=== PATIENT | male | born 1955 | race African-American/Black ===

== ENCOUNTER 2017-01-31 12:12 | Emergency (ER) | payer OTHER ==
[~2017-01-31] VITALS: Ht 180.3 cm; Wt 90.6 kg
[~2017-01-31 12:12] MED LIST: BISA1TAB15 PO; CYAN100T6 PO; ETAN50IN2 SC; FAMO20TA11 PO; FERR325T5 PO; FOLI1TAB7 PO; HYDR200T5 PO; INSDGI SC; INSHRIE SC; LABE1TAB28 PO; LEVE750T PO
[2017-01-31 12:18] VITALS: TEMP 36.8; Ht 180.3 cm; Wt 90.6 kg
[2017-01-31] MEDS ORDERED: INSHNI SQ ×2 (12:23)
[2017-01-31] MEDS ORDERED: NORT25CA PO (12:23)
[2017-01-31] MEDS ORDERED: LISI40TA PO (12:23)
[2017-01-31] MEDS ORDERED: AMLO-110 PO (12:23)
[2017-01-31] MEDS ORDERED: GLC500 PO (12:23)
[2017-01-31] MEDS ORDERED: ATOR10TA82 PO (12:23)
[2017-01-31] MEDS ORDERED: SODIUM CHLORIDE 0.9% 1000ML 1,000 ML IV ONE (13:30)
[2017-01-31 14:23] LABS: HEMATOCRIT 39.7 % (42-52); MEAN CELL VOLUME 86.3 fL (80-100); MEAN CORPUSCULAR HEMOGLOBIN 29.3 pg (25-34); MEAN PLATELET VOLUME 9.8 fL (7.4-10.4); PLATELET COUNT 215 K/uL (130-400); WHITE BLOOD COUNT 4.74 K/uL (4.8-10.8)
[2017-01-31] MEDS ORDERED: DEXTROSE 50% 50 ML SYR ONE (15:02)
[2017-01-31 15:05] LABS: BUN/CREATININE RATIO 14.8 (10-20); CALCIUM 9.1 mg/dl (8.5-10.1); CREATININE 1.3 mg/dl (0.60-1.40); POTASSIUM 4.2 mmol/L (3.5-5.1)
[2017-01-31 15:11] LABS: BASO % 0.6 %; BASO ABS # 0.03 K/uL (0-0.2); COMPLETE YES; EOS % 1.9 %; LYMPH % 52.5 %; LYMPH ABS # 2.49 K/uL (1.2-3.4); MONO % 12.2 %; NEUT % 32.8 %
[2017-01-31 18:21] VITALS: BP 153/97; PULSE 68; O2SAT 99
[2017-01-31 19:13] LABS: URINE APPEARANCE CLEAR (CLEAR); URINE BILIRUBIN NEG (NEG); URINE COLOR YELLOW; URINE NITRITE NEG (NEG); URINE SPECIFIC GRAVITY 1.012 (1.000-1.030); UROBILINOGEN NEG (NEG)
[2017-01-31 19:14] LABS: MANUAL MICROSCOPIC REQUIRED? NO; REVIEW REQ? NO
--- NOTE | 2017-01-31 22:03 | EMERGENCY ROOM VISIT NOTE ---
ED Visit Note First contact with patient: 13:01 Chief Complaint: Dizziness. History of Present Illness: Mr. Ashley is a 61-year-old white male who is brought into the ED accompanied by 2 [facility] guards complaining of lightheadedness. Historically patient has a history of hypertension, diabetes, seizure disorder, coronary artery disease, ulcerative colitis and dyslipidemia. Additionally patient reports a few months ago he had black stools and reported he had a test in [facility] that showed it was not melanotic. Reported by [facility] staff today and patient that he was since line standing for his medication when he reports he developed lightheadedness; it is reported he initially said it was dizziness but when I interviewed him he denied that there was any spinning component to these sensations. At that time it was reported [facility] staff attempted to take his blood pressure multiple times and when they finally were successful his blood pressure was 60 systolic and they did check his blood sugar which was above 200. On my evaluation of the patient he is currently reporting that he is symptom- free. He does not remember exactly when the lightheadedness resolved. He reports he was not giving any medication for lightheadedness to the best of his knowledge. He did not identify any aggravating or alleviating factors related to his lightheadedness. Patient denies recent head injury, headache, visual changes, hearing changes, difficulty speaking, difficulty swallowing, difficulty ambulating/coordinating body movements, neck pain, back pain, chest pain, shortness of breath, palpitations, abdominal pain, nausea, vomiting, diarrhea, constipation, rectal bleeding, black/tarry stools, urinary symptoms, hematuria, easy bruising, easy bleeding, extremity weakness/numbness/tingling. Review of Systems: As noted above in history of present illness. All body systems were reviewed and found to be negative as noted above. Past Medical History: As noted above and constipation, dyspepsia, depression, hepatitis C, rheumatoid arthritis and chronic pain. Current Medications: Medications Dose Route/Sig Max Daily Dose Days Date Category Dose Instructions Lipitor (Atorvastatin Calcium) 10 Mg Tab 10 Mg PO HS 01/31/17 Reported Norvasc (Amlodipine Besylate) 5 Mg Tab 5 Mg PO DAILY 01/31/17 Reported Metformin HCl 500 Mg Tab 500 Mg PO BID 01/31/17 Reported Prinivil (Lisinopril) 40 Mg Tab 40 Mg PO DAILY 01/31/17 Reported Humulin N (Insulin Human NPH) 100 Units/Ml Susp 15 Units SQ HS 01/31/17 Reported Humulin N (Insulin Human NPH) 100 Units/Ml Susp 45 Unit SQ DAILY 01/31/17 Reported Pamelor (Nortriptyline HCl) 25 Mg Cap 25 Mg PO BID 01/31/17 Reported Humulin R (Insulin Human Regular) 100 Units/Ml Susp 1 Dose SC ACHS 06/19/16 Reported COVERAGE DIRECTED BY FOLLOWING SLIDING SCALE: 150 - 200 2 UNITS 201 - 250 4 UNITS 251 - 300 6 UNITS 301 - 350 8 UNITS 351 - 400 10 UNITS 401 - 450 12 UNITS > 450 CALL Enbrel (Etanercept) 50 Mg/Ml Inj 50 Mg SC WK 06/19/16 Reported ADMINISTER EVERY MONDAY Vitamin B12 100 Mcg (Cyanocobalamin) 100 Mcg Tab 100 Mcg PO DAILY 06/04/16 Reported Normodyne (Labetalol HCl) 200 Mg Tab 200 Mg PO BID 06/04/16 Reported Folvite (Folic Acid) 1 Mg Tab 1 Mg PO DAILY 06/04/16 Reported Ferrous Sulfate 325 Mg Tab 325 Mg PO BID 06/04/16 Reported Pepcid (Famotidine) 20 Mg Tab 20 Mg PO BID 06/04/16 Reported Keppra (Levetiracetam) 750 Mg Tab 1,500 Mg PO BID 05/17/16 Reported Plaquenil (Hydroxychloroquine Sulfate) 200 Mg Tab 200 Mg PO DAILY 03/04/16 Reported Allergies to Medications: Patient denies and none reported. Social History: Patient is currently in [facility]. Physical Examination: Vital Signs: Date Time Temp Pulse Resp B/P Pulse Ox O2 Delivery O2 Flow Rate FiO2 01/31/17 18:21 68 15 153/97 99 01/31/17 18:00 65 14 99 01/31/17 17:41 66 16 165/97 80 93/73 01/31/17 17:39 92 168/96 92 01/31/17 17:38 93/73 93 01/31/17 17:36 165/97 94 01/31/17 17:30 66 13 98 01/31/17 17:10 67 01/31/17 17:00 67 14 99 01/31/17 16:55 168/102 01/31/17 16:30 77 15 98 01/31/17 16:00 57 12 100 5/9/17 15:30 58 16 97 01/31/17 15:21 59 16 126/76 99 Room Air 64 94/66 65 92/64 01/31/17 15:15 59 12 113/74 99 Room Air 01/31/17 14:45 66 13 153/94 100 Room Air 01/31/17 13:41 61 01/31/17 12:18 36.8 65 18 126/79 95 Room Air GENERAL: 61-year-old male in no acute distress, nontoxic-appearing, afebrile and hemodynamically stable. NEUROLOGICAL: Awake, alert and oriented to person, place and time. Answering questions appropriately and following commands. Good hand eye coordination. No focal motor or sensory deficits. Cranial nerves II through XII grossly intact. Good short-term and long-term recall. Pronator drift test negative. SKIN: Warm, dry and pink. No soft tissue eruptions or trauma noted. HEENT: Atraumatic and normocephalic. PERRLA. EOMI without nystagmus. Sclera white and conjunctiva pink. No drainage from naris. Oral cavity moist and pink. Pharynx is nonerythematous or edematous. Airway is patent. Speech clear , slightly delayed but normal. No lymphadenopathy. Trachea midline. No jugular venous distention. No carotid bruits. BACK: No tenderness over the bony spine. No CVA tenderness. THORAX: Lungs sounds are clear to auscultation and equal bilaterally with symmetrical chest wall. No wheezing, rales or rhonchi. No crepitus, tenderness , subcutaneous air or deformities noted. HEART: Regular rate and rhythm. No gallops, rubs or murmurs are appreciated. ABDOMEN: Flat, soft and nontender. Positive bowel sounds in all quadrants. No guarding, rigidity or organomegaly. EXTREMITIES: Moves all extremities well on command and with purpose. All distal neurovascular statuses are intact and equal bilaterally. No calf tenderness or cords. ED Course: Patient is assessed as noted above. Laboratory Testing: Test 01/31/17 12:18 01/31/17 14:10 01/31/17 14:57 01/31/17 15:12 Range/Units Bedside Glucose 265 42 111 70-99 mg/dl White Blood Count 4.74 4.8-10.8 K/uL Red Blood Count 4.60 4.7-6.1 M/uL Hemoglobin 13.5 14.0-18.0 g/dL Hematocrit 39.7 42-52 % Mean Corpuscular Volume 86.3 80-100 fL Mean Corpuscular Hemoglobin 29.3 25-34 pg Mean Corpuscular Hemoglobin Concent 34.0 32-36 g/dl Platelet Count 215 130-400 K/uL Mean Platelet Volume 9.8 7.4-10.4 fL Neutrophils (%) (Auto) 32.8 % Lymphocytes (%) (Auto) 52.5 % Monocytes (%) (Auto) 12.2 % Eosinophils (%) (Auto) 1.9 % Basophils (%) (Auto) 0.6 % Neutrophils # (Auto) 1.55 1.4-6.5 K/uL Lymphocytes # (Auto) 2.49 1.2-3.4 K/uL Monocytes # (Auto) 0.58 0.11-0.59 K/uL Eosinophils # (Auto) 0.09 0-0.5 K/uL Basophils # (Auto) 0.03 0-0.2 K/uL RDW Standard Deviation 40.1 36.4-46.3 fL RDW Coefficient of Variation 12.7 11.5-14.5 % Immature Granulocyte % (Auto) 0.0 % Immature Granulocyte # (Auto) 0.00 0.00-0.02 K/uL Sodium Level 140 136-145 mmol/L Potassium Level 4.2 3.5-5.1 mmol/L Chloride Level 106 98-107 mmol/L Carbon Dioxide Level 32 21-32 mmol/L Anion Gap 2.0 3-11 mmol/L Blood Urea Nitrogen 19 7-18 mg/dl Creatinine 1.30 0.60-1.40 mg/dl Est Creatinine Clear Calc Drug Dose 67.0 ml/min Estimated GFR () 67.3 Estimated GFR (Non- 58.1 BUN/Creatinine Ratio 14.8 10-20 Random Glucose 34 70-99 mg/dl Calcium Level 9.1 8.5-10.1 mg/dl Total Bilirubin 0.5 0.2-1 mg/dl Direct Bilirubin 0.2 0-0.2 mg/dl Aspartate Amino Transf (AST/SGOT) 20 15-37 U/L Alanine Aminotransferase (ALT/SGPT) 23 12-78 U/L Alkaline Phosphatase 65 45-117 U/L Total Protein 8.3 6.4-8.2 gm/dl Albumin 3.7 3.4-5.0 gm/dl Test 01/31/17 15:32 01/31/17 16:08 01/31/17 17:06 01/31/17 17:35 Range/Units Bedside Glucose 122 97 84 122 70-99 mg/dl Test 01/31/17 18:30 Range/Units Urine Color YELLOW Urine Appearance CLEAR CLEAR Urine pH 5.0 4.5-7.5 Urine Specific [place] 1.012 1.000-1.030 Urine Protein NEG NEG Urine Glucose (UA) TRACE NEG Urine Ketones NEG NEG Urine Occult Blood NEG NEG Urine Nitrite NEG NEG Urine Bilirubin NEG NEG Urine Urobilinogen NEG NEG Urine Leukocyte Esterase NEG NEG EKG: Was read by myself and reviewed with Dr. Ray; shows normal sinus rhythm with a ventricular rate of 63 bpm. Normal axis, intervals and complexes. No acute ST changes indicating ischemia, injury or infarction. This was compared to previous from May 2016 in no acute changes were noted. Patient was hydrated with normal saline. During his stay in the emergency department his serum glucose level dropped and he was given one amp of D50. He was monitored for his sugar multiple times and did continue to drop. He was fed and he had a rebound of his glucose level but then it dropped again. Once again he was given orange juice with added sugar and it seemed to stabilize. Patient was reassessed multiple times during his stay in the emergency department. I did review the records that were sent from the [facility] and it appears over the last week he has been having difficulty controlling his serum glucose level. He 's had multiple episodes where his sugars have been in the 30 and 40s but there is also multiple records when he is 400-500. I did contact the on-call medical staff for the [facility] and asked for their recommendations on admission versus return to [facility] with close monitoring. After lengthy conversation it was decided that he should return to the [facility] for careful monitoring and return as needed. Patient's case was also reviewed with my attending Dr. Ray; we agreed on diagnostic approach, treatment, disposition and plan. Patient was educated about tonight's findings. Clinical Impression: Hypoglycemia. Nonsymptomatic hypotension. Decision-Making: Initially my differential diagnosis I considered GI bleed, CVA , arrhythmia, autonomic nervous system dysfunction, hypoglycemia, electrolyte abnormality, and other causes. Disposition: Patient discharged home in stable condition; prior to departure he was reassessed and subjectively reported he was pain and symptom-free. Plan: Was encouraged that the patient be admitted to the infirmary at the [facility] with close glucose and blood pressure monitoring. Was encouraged that possibly he needed follow-up with endocrinology to best regulate his insulin doses. Was encouraged that he really return to the emergency department for uncontrolled serum glucose, worsening hypotension or any new/concerning symptoms.
[2017-02-27] MEDS ORDERED: INSHRIE SQ. (18:41)
[2017-03-01] MEDS ORDERED: SENN8.6T7 PO (10:29)
== END 2017-01-31 18:40 | disposition home or self-care (01) ==
LOC: EDBD 12:12 → C.EDB 12:13
DX: E16.2 Hypoglycemia, unspecified (principal); I95.9 Hypotension, unspecified; I10 Essential (primary) hypertension; E11.9 Type 2 diabetes mellitus without complications; I25.10 Atherosclerotic heart disease of native coronary artery without angina pectoris; K51.90 Ulcerative colitis, unspecified, without complications; G40.909 Epilepsy, unspecified, not intractable, without status epilepticus; E78.5 Hyperlipidemia, unspecified; F32.9 Major depressive disorder, single episode, unspecified; M06.9 Rheumatoid arthritis, unspecified; Z86.19 Personal history of other infectious and parasitic diseases; Z79.4 Long term (current) use of insulin; Z79.899 Other long term (current) drug therapy

== ENCOUNTER 2017-02-26 09:42 | Emergency (ER) | payer OTHER ==
[~2017-02-26] VITALS: Ht 180.3 cm; Wt 84.7 kg
[~2017-02-26 09:42] MED LIST changes: +AMLO-110 PO; +ATOR10TA82 PO; -BISA1TAB15 PO; +GLC500 PO; -INSDGI SC; +INSHNI SQ; +LISI40TA PO; +NORT25CA PO
[2017-02-26 09:50] VITALS: TEMP 36.4; Ht 180.3 cm; Wt 84.7 kg
--- NOTE | 2017-02-26 10:07 | EMERGENCY ROOM VISIT NOTE ---
History Report prepared by Gabo: Sergio Rush Under the Supervision of: Dr. Beverley Christine D.O. First contact with patient: 09:44 Stated Complaint: SYNCOPE History of Present Illness The patient is a 61 year old male with a recent history of CVA who presents to the Emergency Room with persistent abdominal pain that started after breakfast this morning. The patient describes pain in the center of his abdomen. He denies feeling bloated. There are no worsening or relieving factors known to the patient. The patient is an inmate from [facility]. The patient went and sat on the toilet attempting to have a bowel movement for a while before falling and hitting the his head on the wall behind the toilet. The patient did not lose consciousness. He denies headache, neck pain, or back pain. When asked why he fell the patient states that "I just fell." The patient sat back down after the fall and notes that he was feeling nauseous. Per EMS, the patient was found unresponsive in his cell. The patient is still feeling nauseous as well as still experiencing abdominal pain. He did not vomit. Patient denies recent fevers, cough or cold symptoms, changes in bowel movements, or urinary symptoms. The patient's blood sugars have been fluctuating lately. His BSG was 50 this morning per [facility] notes. The patient was in rehab one month ago after experiencing a stroke. He states that he has some persistent left leg weakness and that his left arm is fine. He is not sure if he has had any recent medication changes. On review of papers accompanying pt, BS fluctuations vary widely from 50 to 500' s. No witnesses able to help better clarify story, paperwork states pt with "unresponsive episode". No hx of seizures and none recorded on paperwork. Source of History: patient, EMS Onset: this morning Position: abdomen Timing: other (persistent) Modifying Factors (Worsening): other (none) Modifying Factors (Relieving): other (none) Associated Symptoms: + nausea, No LOC, No fevers, No headache, No cough, No neck pain, No vomiting, No back pain, No melena, No hematochezia, No diarrhea, No urinary symptoms Review of Systems See HPI for pertinent positives & negatives. A total of 10 systems reviewed and were otherwise negative. Past Medical & Surgical Medical Problems: (1) Acute CVA (cerebrovascular accident) (2) Colitis (3) Diabetes (4) HTN (hypertension) (5) Hyperlipidemia (6) Syncope and collapse Family History Cancer Diabetes mellitus Heart disease Hypertension Social History Smoking Status: Former Smoker Alcohol Use: none Drug Use: none Marital Status: single Housing Status: other Occupation Status: unemployed, other Current/Historical Medications Scheduled Amlodipine (Norvasc), 5 MG PO DAILY Atorvastatin (Lipitor), 10 MG PO HS Cyanocobalamin (Vitamin B12 100 Mcg), 100 MCG PO DAILY Etanercept (Enbrel), 50 MG SC WK Famotidine (Pepcid), 20 MG PO BID Ferrous Sulfate (Ferrous Sulfate), 325 MG PO BID Folic Acid (Folvite), 1 MG PO DAILY Hydroxychloroquine Sulfate (Plaquenil), 200 MG PO DAILY Insulin Glargine (Lantus), 30 UNITS SQ DAILY@1630 Insulin Human Regular (Humulin R), UNITS SQ. ACHS Labetalol (Normodyne), 200 MG PO BID Levetiracetam (Keppra), 1,500 MG PO BID Lisinopril (Prinivil), 40 MG PO DAILY Metformin HCl (Metformin HCl), 500 MG PO BID Nortriptyline (Pamelor), 25 MG PO BID Scheduled PRN Sennosides-Docusate Sodium (Senokot S), 1 TAB PO QAM PRN for constipation Allergies Coded Allergies: No Known Allergies (Unverified , 02/26/17) Physical Exam Vital Signs Date Time Temp Pulse Resp B/P (MAP) Pulse Ox O2 Delivery O2 Flow Rate FiO2 02/26/17 15:45 72 16 135/88 100 Room Air 02/26/17 13:45 67 20 160/91 100 Room Air 02/26/17 12:18 67 02/26/17 11:46 62 20 146/68 100 Room Air 02/26/17 09:51 52 02/26/17 09:50 36.4 54 18 143/93 94 Room Air Physical Exam GENERAL: alert, well appearing, well nourished, no distress, non-toxic EYE EXAM: normal conjunctiva. OROPHARYNX: no exudate, no erythema, lips, buccal mucosa, and tongue normal and mucous membranes are moist NECK: supple, no nuchal rigidity, no adenopathy, non-tender LUNGS: Clear to auscultation. Normal chest wall mechanics HEART: no murmurs, S1 normal and S2 normal ABDOMEN: abdomen soft, some central lower abdominal tenderness, normo-active bowel sounds, no pulsatile masses, no rebound or guarding. BACK: Back is symmetrical on inspection and there is no deformity, no midline tenderness, no CVA tenderness. SKIN: no rashes and no bruising UPPER EXTREMITIES: upper extremities are grossly normal. LOWER EXTREMITIES: No pitting edema. NEURO EXAM: Normal sensorium, cranial nerves II-XII grossly intact, normal speech, no gross weakness of arms, no gross weakness of legs. Gross sensation intact. Medical Decision & Procedures ER Provider Diagnostic Interpretation: Radiology results have been interpreted by the radiologist and reviewed by me. PA CHEST WITH ABDOMINAL SERIES CLINICAL HISTORY: Nausea. Generalized abdominal pain. FINDINGS: A PA chest radiograph is compared to study dated 06/04/2016. The examination is degraded by patient rotation. The cardiomediastinal silhouette is unremarkable. Chronic interstitial thickening is unchanged. No airspace consolidation or pleural effusion is identified. No pneumothorax is seen. The skeletal structures are osteopenic. The bony thorax is grossly intact. Supine and erect abdominal rate or grafts are compared to study dated 06/09/2016. There is a nonobstructed abdominal bowel gas pattern. Moderate colonic fecal retention is observed. No evidence of intraperitoneal free air is seen. Small nonobstructing left renal calculi are suspected.. The lumbosacral spine and bony pelvis appear intact. IMPRESSION: 1. No active disease in the chest. 2. No bowel obstruction is seen. 3. Moderate constipation. 4. Small nonobstructing left renal calculi are suspected. Electronically signed by: Isra Webster M.D. 02/26/2017 11:17 AM Dictated Date/Time: 02/26/2017 11:[address] SCAN OF THE BRAIN WITHOUT IV CONTRAST CLINICAL HISTORY: Head injury. Unresponsive episode. COMPARISON STUDY: Prior CT scans of the brain, most recently dated 06/09/2016. TECHNIQUE: Unenhanced axial CT scan of the brain is performed from the vertex to the skull base. CT DOSE: 537.48 mGy.cm FINDINGS: Brain parenchyma: There are age-related involutional changes noting mild subcortical and periventricular microangiopathic change. Chronic lacunar infarcts are seen within the basal ganglia bilaterally. There is no hemorrhage, mass effect, or evidence of acute territorial ischemia by CT criteria. Flores-white matter is preserved. No extra-axial fluid collection is seen. Subdural hematomas identified on 06/09/2016 have resolved. Ventricles, sulci, cisterns: See above. Intracranial vasculature: There is mild atherosclerotic calcification of the cavernous carotid arteries. Calvarium: Again seen are postoperative changes from left frontoparietal craniotomy. No destructive calvarial lesion or depressed calvarial fracture is seen. Soft tissues: There is subcutaneous fluid seen along the left convexity superficial to the craniotomy site. Sinuses and mastoids: The visualized paranasal sinuses are clear. The mastoid air cells are well pneumatized. Orbits: The bony orbits are grossly intact. IMPRESSION: 1. There is no hemorrhage, mass effect, or evidence of acute territorial ischemia by CT criteria. 2. No extra-axial fluid collection is seen. The subdural hematomas identified on 06/09/2016 have resolved. 3. Postoperative changes from left-sided craniotomy as above. Electronically signed by: Isra Webster M.D. 02/26/2017 10:54 AM Dictated Date/Time: 02/26/2017 10:46 AM Laboratory Results 02/26/17 10:40 Red Blood Count 4.85, Mean Corpuscular Volume 85.2, Mean Corpuscular Hemoglobin 28.9, Mean Corpuscular Hemoglobin Concent 33.9, Mean Platelet Volume 10.6, Neutrophils (%) (Auto) 64.6, Lymphocytes (%) (Auto) 22.1, Monocytes (%) (Auto) 11.9, Eosinophils (%) (Auto) 0.9, Basophils (%) (Auto) 0.3, Neutrophils # (Auto ) 3.79, Lymphocytes # (Auto) 1.30, Monocytes # (Auto) 0.70, Eosinophils # (Auto ) 0.05, Basophils # (Auto) 0.02 02/26/17 10:40 Test 02/26/17 10:40 02/26/17 13:15 02/26/17 14:15 White Blood Count 5.87 K/uL (4.8-10.8) Red Blood Count 4.85 M/uL (4.7-6.1) Hemoglobin 14.0 g/dL (14.0-18.0) Hematocrit 41.3 % (42-52) Mean Corpuscular Volume 85.2 fL (80-100) Mean Corpuscular Hemoglobin 28.9 pg (25-34) Mean Corpuscular Hemoglobin Concent 33.9 g/dl (32-36) Platelet Count 189 K/uL (130-400) Mean Platelet Volume 10.6 fL (7.4-10.4) Neutrophils (%) (Auto) 64.6 % Lymphocytes (%) (Auto) 22.1 % Monocytes (%) (Auto) 11.9 % Eosinophils (%) (Auto) 0.9 % Basophils (%) (Auto) 0.3 % Neutrophils # (Auto) 3.79 K/uL (1.4-6.5) Lymphocytes # (Auto) 1.30 K/uL (1.2-3.4) Monocytes # (Auto) 0.70 K/uL (0.11-0.59) Eosinophils # (Auto) 0.05 K/uL (0-0.5) Basophils # (Auto) 0.02 K/uL (0-0.2) RDW Standard Deviation 38.9 fL (36.4-46.3) RDW Coefficient of Variation 12.7 % (11.5-14.5) Immature Granulocyte % (Auto) 0.2 % Immature Granulocyte # (Auto) 0.01 K/uL (0.00-0.02) Anion Gap 5.0 mmol/L (3-11) Est Creatinine Clear Calc Drug Dose 67.1 ml/min Estimated GFR () 74.1 Estimated GFR (Non- 64.0 BUN/Creatinine Ratio 20.1 (10-20) Lactic Acid Level 1.2 mmol/L (0.4-2.0) Calcium Level 8.8 mg/dl (8.5-10.1) Total Bilirubin 0.8 mg/dl (0.2-1) Aspartate Amino Transf (AST/SGOT) 25 U/L (15-37) Alanine Aminotransferase (ALT/SGPT) 26 U/L (12-78) Alkaline Phosphatase 74 U/L (45-117) Troponin I < 0.015 ng/ml (0-0.045) Total Protein 8.4 gm/dl (6.4-8.2) Albumin 3.8 gm/dl (3.4-5.0) Globulin 4.6 gm/dl (2.5-4.0) Albumin/Globulin Ratio 0.8 (0.9-2) Lipase 61 U/L (73-393) Urine Color YELLOW Urine Appearance CLEAR (CLEAR) Urine pH 5.0 (4.5-7.5) Urine Specific [place] 1.026 (1.000-1.030) Urine Protein NEG (NEG) Urine Glucose (UA) 3+ (NEG) Urine Ketones 1+ (NEG) Urine Occult Blood NEG (NEG) Urine Nitrite NEG (NEG) Urine Bilirubin NEG (NEG) Urine Urobilinogen NEG (NEG) Urine Leukocyte Esterase NEG (NEG) Bedside Glucose 305 mg/dl (70-99) Laboratory results per my review. Medications Administered Medications (Trade) Dose Ordered Sig/Michelle Route Start Time Stop Time Status Last Admin Dose Admin Insulin Human Regular (novoLIN-R U-100 PER UNIT) 4 units NOW STAT IV 02/26/17 13:29 02/26/17 13:31 DC 02/26/17 13:44 4 UNITS Insulin Human Regular (novoLIN-R U-100 PER UNIT) 4 units NOW STAT IV 02/26/17 14:48 02/26/17 14:50 DC 02/26/17 15:00 4 UNITS ECG Indication: abdominal pain Rate (beats per minute): 54 Rhythm: sinus bradycardia Findings: no acute ischemic change, no ectopy, other (normal axis, normal intervals) ED Course 0945: The patient was evaluated in room A2. A complete history and physical exam was performed. 1320: Reassessed the patient. 1329: Insulin Human Regular 4 units IV. 1448: Insulin Human Regular 4 units IV. 1530: Reassessed the patient. Discussed the findings with him. He verbalized understanding of the discharge instructions. The patient is ready for discharge. Medical Decision Differential diagnosis: Etiologies such as appendicitis, diverticulitis, PUD, biliary pathology, UTI, pancreatitis, obstruction, mesenteric ischemia, aortic pathology, infections, inflammatory bowel disease, renal colic, as well as others were entertained. Medication Reconciliation: I attest that I have personally reviewed the patient' s current medication list. Blood pressure screening: Patient was found to have an elevated blood pressure and was referred to their primary doctor for recheck and further treatment. Given lack or abd pain or exam, or recurrence, with reassuring labs and imaging , I feel abed pain most likely related to constipation. No vomiting. No CVA like findings. CT reassuring. Pt monitored for several hours as a precaution. Blood sugar rechecked, pt given insulin to help control and prevent any further escalation. Discussed f/u with doctor, checking BS, Dm diet, constipation, sx to be reevaluated for and return to the ER. Doubt CVA, dissection, aaa, perf, colitis, gi bleed, sbo, acs, occult bacteremia/sepsis. Possible near syncope related to fluctuating glucose, dehydration, pain response. VS stable in ER, no dysrhythmias noted on tele, no cp/sob. Pt well appearing here despite complaints/episode. Ambulated with steady gait. Impression Primary Impression: UNSPECIFIED ABDOMINAL PAIN Additional Impressions: OTHER SPECIFIED DIABETES MELLITUS WITH HYPERGLYCEMIA CONSTIPATION, UNSPECIFIED CHI (closed head injury) Scribe Attestation The scribe's documentation has been prepared under my direction and personally reviewed by me in its entirety. I confirm that the note above accurately reflects all work, treatment, procedures, and medical decision making performed by me. Departure Information Dispostion Home / Self-Care Referrals Luc BACA (PCP) Forms HOME CARE DOCUMENTATION FORM, IMPORTANT VISIT INFORMATION Additional Instructions Please continue medications as prescribed. Please consider talking with her doctor regarding medications to help prevent additional constipation. Please have your blood sugar checked daily and have your family doctor just her medications to help better control your blood sugar readings. Please drink plenty of water and otherwise adhere to a diabetic diet. If you have any recurrent abdominal pain, develop nausea or vomiting, dizziness, fevers, chest pain, trouble breathing, or you've any other new concerns, please return the emergency room. Problem Qualifiers Additional Impressions: CHI (closed head injury) Encounter type: initial encounter Qualified Codes: S09.90XA - Unspecified injury of head, initial encounter
[2017-02-26] MEDS ORDERED: INSDGI SQ (10:31)
--- NOTE | 2017-02-26 10:55 | DIAGNOSTIC IMAGING REPORT ---
CT SCAN OF THE BRAIN WITHOUT IV CONTRAST CLINICAL HISTORY: Head injury. Unresponsive episode. COMPARISON STUDY: Prior CT scans of the brain, most recently dated 06/09/2016. TECHNIQUE: Unenhanced axial CT scan of the brain is performed from the vertex to the skull base. CT DOSE: 537.48 mGy.cm FINDINGS: Brain parenchyma: There are age-related involutional changes noting mild subcortical and periventricular microangiopathic change. Chronic lacunar infarcts are seen within the basal ganglia bilaterally. There is no hemorrhage, mass effect, or evidence of acute territorial ischemia by CT criteria. Flores-white matter is preserved. No extra-axial fluid collection is seen. Subdural hematomas identified on 06/09/2016 have resolved. Ventricles, sulci, cisterns: See above. Intracranial vasculature: There is mild atherosclerotic calcification of the cavernous carotid arteries. Calvarium: Again seen are postoperative changes from left frontoparietal craniotomy. No destructive calvarial lesion or depressed calvarial fracture is seen. Soft tissues: There is subcutaneous fluid seen along the left convexity superficial to the craniotomy site. Sinuses and mastoids: The visualized paranasal sinuses are clear. The mastoid air cells are well pneumatized. Orbits: The bony orbits are grossly intact. IMPRESSION: 1. There is no hemorrhage, mass effect, or evidence of acute territorial ischemia by CT criteria. 2. No extra-axial fluid collection is seen. The subdural hematomas identified on 06/09/2016 have resolved. 3. Postoperative changes from left-sided craniotomy as above. Electronically signed by: Isra Webster M.D. 02/26/2017 10:54 AM Dictated Date/Time: 02/26/2017 10:46 AM
[2017-02-26 11:05] LABS: BASO % 0.3 %; BASO ABS # 0.02 K/uL (0-0.2); COMPLETE YES; EOS % 0.9 %; HEMATOCRIT 41.3 % (42-52); IG% 0.2 %; LYMPH % 22.1 %; MEAN CELL VOLUME 85.2 fL (80-100); MEAN CORPUSCULAR HEMOGLOBIN 28.9 pg (25-34); MEAN CORPUSCULAR HGB CONC 33.9 g/dl (32-36); MEAN PLATELET VOLUME 10.6 fL (7.4-10.4); MONO % 11.9 %; NEUT % 64.6 %; PLATELET COUNT 189 K/uL (130-400); RED BLOOD COUNT 4.85 M/uL (4.7-6.1); WHITE BLOOD COUNT 5.87 K/uL (4.8-10.8)
--- NOTE | 2017-02-26 11:18 | DIAGNOSTIC IMAGING REPORT ---
PA CHEST WITH ABDOMINAL SERIES CLINICAL HISTORY: Nausea. Generalized abdominal pain. FINDINGS: A PA chest radiograph is compared to study dated 06/04/2016. The examination is degraded by patient rotation. The cardiomediastinal silhouette is unremarkable. Chronic interstitial thickening is unchanged. No airspace consolidation or pleural effusion is identified. No pneumothorax is seen. The skeletal structures are osteopenic. The bony thorax is grossly intact. Supine and erect abdominal rate or grafts are compared to study dated 06/09/2016. There is a nonobstructed abdominal bowel gas pattern. Moderate colonic fecal retention is observed. No evidence of intraperitoneal free air is seen. Small nonobstructing left renal calculi are suspected.. The lumbosacral spine and bony pelvis appear intact. IMPRESSION: 1. No active disease in the chest. 2. No bowel obstruction is seen. 3. Moderate constipation. 4. Small nonobstructing left renal calculi are suspected. Electronically signed by: Isra Webster M.D. 02/26/2017 11:17 AM Dictated Date/Time: 02/26/2017 11:14 AM
[2017-02-26 11:27] LABS: ALT/SGPT 26 U/L (12-78); AST/SGOT 25 U/L (15-37); BLOOD UREA NITROGEN 24 mg/dl (7-18); BUN/CREATININE RATIO 20.1 (10-20); CALCIUM 8.8 mg/dl (8.5-10.1); CARBON DIOXIDE 30 mmol/L (21-32); CHLORIDE 102 mmol/L (98-107); GLUCOSE 219 mg/dl (70-99); POTASSIUM 5.5 mmol/L (3.5-5.1); SODIUM 137 mmol/L (136-145)
[2017-02-26 11:32] LABS: ALB/GLOB RATIO 0.8 (0.9-2); ALKALINE PHOSPHATASE 74 U/L (45-117)
[2017-02-26] MEDS ORDERED: NovoLIN-R INSULIN PER UNIT CHARGE IV STA ×2 (13:29→14:48)
[2017-02-26 13:30] LABS: URINE APPEARANCE CLEAR (CLEAR); URINE BILIRUBIN NEG (NEG); URINE COLOR YELLOW; URINE NITRITE NEG (NEG); URINE SPECIFIC GRAVITY 1.026 (1.000-1.030); UROBILINOGEN NEG (NEG); ZZUR CULT IF INDIC CLEAN CATCH NO
[2017-02-26 13:31] LABS: MANUAL MICROSCOPIC REQUIRED? NO; REVIEW REQ? NO
[2017-02-26 15:45] VITALS: BP 135/88; PULSE 72; O2SAT 100
[2017-02-27] MEDS ORDERED: INSHRIE SQ. (18:41)
[2017-03-01] MEDS ORDERED: SENN8.6T7 PO (10:29)
== END 2017-02-26 16:00 ==
LOC: EDBD 09:42 → C.EDA 09:43
DX: R10.9 Unspecified abdominal pain (principal); E11.65 Type 2 diabetes mellitus with hyperglycemia; K59.00 Constipation, unspecified; S09.90XA Unspecified injury of head, initial encounter; R55 Syncope and collapse; R00.1 Bradycardia, unspecified; R11.0 Nausea; E11.9 Type 2 diabetes mellitus without complications; I10 Essential (primary) hypertension; E78.5 Hyperlipidemia, unspecified; Z79.4 Long term (current) use of insulin; Z79.899 Other long term (current) drug therapy; Z87.19 Personal history of other diseases of the digestive system; Z86.73 Personal history of transient ischemic attack (TIA), and cerebral infarction without residual deficits; Z87.891 Personal history of nicotine dependence; Z82.49 Family history of ischemic heart disease and other diseases of the circulatory system; Z83.3 Family history of diabetes mellitus; W18.12XA Fall from or off toilet with subsequent striking against object, initial encounter

== ENCOUNTER 2021-02-23 09:23 | Inpatient (IN) ==
[2021-02-23] MEDS ORDERED: ONDANSETRON INJ 2 MG/ML 2 ML VIAL IV STA (09:32)
[2021-02-23] MEDS ORDERED: SODIUM CHLORIDE 0.9% 1000ML 1,000 ML IV ONE (09:32)
--- NOTE | 2021-02-23 09:36 | Emergency Department Note ---
Impression & Plan Syncope and collapse, Abnormal EKG ED Provider Note NAME: DEBORAH [id number] JOSUE AGE: 65 SEX: M : 1955 ARRIVES VIA: Ambulance INFORMANT: Patient ED PROVIDER(S): Ricky Burch DO CHIEF COMPLAINT: syncope HPI: Patient is a 65-year-old prisoner with past medical history of hypertension, diabetes, hyperlipidemia and CVA that presents the ER for syncopal episode. He notes that he has been dizzy every morning for the past week or so. It gradually goes away. Is only present when he is up moving around. He denies any weakness or numbness in his arms or legs. No change in vision. No chest pain or shortness of breath. No nausea, vomiting, or diarrhea. He went to check out the message board and notes he woke up on the floor. He did hit his head. He denies any complaints at this time. He notes prior to the incident other than feeling a little dizzy he had no complaints. This occurred around 8 AM. ROS: See above HPI for pertinent positives & negatives. A total of 10 systems reviewed and were otherwise negative. PAST MEDICAL HISTORY:See Below PAST SURGICAL HISTORY:See Below FAMILY HISTORY:See Below SOCIAL HISTORY:See Below HOME MEDICATIONS:See Below ALLERGIES:See Below VITALS:See Below PHYSICAL EXAMINATION: GENERAL: Sitting up in bed, alert, well appearing, well nourished, no distress, non-toxic EYE EXAM: normal conjunctiva. PERRL and EOM's intact. OROPHARYNX: no exudate, no erythema, lips, buccal mucosa, and tongue normal and mucous membranes are moist NECK: supple, no nuchal rigidity, no adenopathy, non-tender LUNGS: Clear to auscultation. Normal chest wall mechanics HEART: no murmurs, S1 normal and S2 normal ABDOMEN: abdomen soft, non-tender, normo-active bowel sounds, no masses, no rebound or guarding. BACK: Back is symmetrical on inspection and there is no deformity, no midline tenderness, no CVA tenderness. SKIN: no rashes and no bruising UPPER EXTREMITIES: upper extremities are grossly normal. LOWER EXTREMITIES: No pitting edema. NEURO EXAM: Normal sensorium, cranial nerves II-XII intact, normal speech, no gross weakness of arms, no weakness of legs. No drift. Finger to nose intact. Gross sensation intact. MEDICAL DECISION MAKING: Patient is a 65-year-old female who presents the ER for dizziness. He notes that he went to check message for this morning and passed out. He does not remember anything. IV was established blood work was obtained. Labs show no significant leukocytosis or anemia. BMP with a creatinine 1.8 fairly consistent with previous. LFTs bilirubin was unremarkable. Troponin was negative. EKG when compared to previous was fairly unremarkable. At the intermediate he had T wave inversion and ST wave changes. Uncertain of when in the course of his symptoms this occurred. CT head was negative. Chest x-ray unremarkable. Patient was given IV fluids and updated bedside. Discussed with the hospitalist for further evaluation. Triage Nursing notes reviewed. Limited review of prior medical records performed Vital Signs: reviewed and remarkable for no significant abnormalities Differential diagnosis: Differential diagnosis includes etiologies such as benign positional vertigo, dehydration, hypovolemia, anemia, tumor, infection, hypoglycemia, electrolyte abnormalities, cardiac sources, intracerebral event, toxicologic, neurological, as well as others were entertained. ER treatment provided: See below Diagnostics interpreted by me: ECG: Sinus rhythm rate of 60 Normal axis T wave inversion in aVL QTC 444 No significant change from EKG Cardiac Monitoring: An order was placed for continuous cardiac monitoring. The monitor shows a rate of 62 with sinus rhythm. Laboratory studies: As stated above and show below. Imaging studies: See below Consultation(s): Discussed with the hospitalist for further evaluation Procedures: none Critical Care: None Past Med/Surg History Medical History (Updated 02/23/21 @ 15:37 by Ricky Burch DO) Colitis CVA (cerebral infarction) Diabetes HTN (hypertension) Hyperlipidemia Ischemic stroke without coma Syncope Syncope and collapse Surgical History Surgical history unknown Family History Other Family history non-contributory Social History (Updated 02/23/21 @ 13:29 by Bianca Holguin MD) Smoking Status: Smoker, status unknown Tobacco Type: Cigarettes Age Started Using Tobacco: 13; packs per day: 0.5; Hx Substance Use: Yes Prescribed Medications: Marijuana Preferred Language: Ukrainian marital status: Current Living Situation: Other Current Living Situation Comment: [facility] current occupational status: unemployed Feels Safe at Home: Yes Allergies Allergies Allergy/AdvReac Type Severity Reaction Status Date / Time No Known Allergies Allergy Unverified 12/24/20 10:49 Home Meds Home Medications Medication Instructions Recorded Confirmed aspirin 325 mg PO DAILY 10/18/20 02/23/21 atorvastatin 10 mg PO DAILY 10/18/20 02/23/21 docusate sodium 100 mg PO BID 10/18/20 02/23/21 etanercept [Enbrel] 50 mg SUBCUT WK 10/18/20 02/23/21 folic acid 1 mg PO DAILY 10/18/20 02/23/21 glucagon HCl [Glucagon (HCl) 1 mg SUBCUT DAILY PRN 10/18/20 02/23/21 Emergency Kit] hydroxychloroquine 200 mg PO DAILY 10/18/20 02/23/21 insulin glargine 18 unit SUBCUT DAILY 10/18/20 02/23/21 insulin glargine 24 unit SUBCUT QAM 10/18/20 02/23/21 insulin regular human [Novolin R 6 unit SUBCUT BID 10/18/20 02/23/21 Flexpen] labetalol 200 mg PO BID 10/18/20 02/23/21 lisinopril 40 mg PO DAILY 10/18/20 02/23/21 metformin 500 mg PO BID 10/18/20 02/23/21 nortriptyline 25 mg PO BID 10/18/20 02/23/21 amlodipine 5 mg PO DAILY 12/24/20 02/23/21 chlorthalidone 25 mg PO DAILY 12/24/20 02/23/21 cyanocobalamin (vitamin B-12) 1,000 mcg PO DAILY 12/24/20 02/23/21 [Vitamin B-12] labetalol 100 mg PO DAILY 12/24/20 02/23/21 Results & Data (ED) Vital Signs Vital Signs - 24 hr 02/23/21 09:35 02/23/21 09:36 02/23/21 09:38 Temperature 36.7 C Temperature Source Oral Pulse Rate - Lying Pulse Rate - Sitting Pulse Rate - Standing Pulse Rate 60 62 59 L Pulse Rate from SpO2 Sensor 59 L 59 L Respiratory Rate 18 12 Blood Pressure - Lying Blood Pressure - Sitting Blood Pressure- Standing Blood Pressure 114/79 145/71 H Blood Pressure Mean 90 95 Pulse Oximetry 100 100 99 Oxygen Delivery Method Room Air Sepsis Recent Fever Within 48 Hours No Sepsis New/Unexplained Change in Mental Status No Sepsis Action Taken by Nursing No Action Required 02/23/21 09:43 02/23/21 10:00 02/23/21 10:02 Temperature Temperature Source Pulse Rate - Lying Pulse Rate - Sitting Pulse Rate - Standing Pulse Rate 63 64 Pulse Rate from SpO2 Sensor 62 64 Respiratory Rate 14 14 Blood Pressure - Lying Blood Pressure - Sitting Blood Pressure- Standing Blood Pressure 136/90 Blood Pressure Mean 105 Pulse Oximetry 100 100 100 Oxygen Delivery Method Room Air Sepsis Recent Fever Within 48 Hours Sepsis New/Unexplained Change in Mental Status Sepsis Action Taken by Nursing 02/23/21 10:24 02/23/21 10:25 02/23/21 10:27 Temperature Temperature Source Pulse Rate - Lying 63 Pulse Rate - Sitting 64 Pulse Rate - Standing 64 Pulse Rate 64 65 Pulse Rate from SpO2 Sensor Respiratory Rate 14 19 Blood Pressure - Lying 150/86 H Blood Pressure - Sitting 143/86 H Blood Pressure- Standing 105/82 Blood Pressure 143/86 H 105/82 Blood Pressure Mean 105 89 Pulse Oximetry Oxygen Delivery Method Sepsis Recent Fever Within 48 Hours Sepsis New/Unexplained Change in Mental Status Sepsis Action Taken by Nursing 02/23/21 10:30 02/23/21 10:32 02/23/21 11:00 Temperature Temperature Source Pulse Rate - Lying Pulse Rate - Sitting Pulse Rate - Standing Pulse Rate 64 61 63 Pulse Rate from SpO2 Sensor Respiratory Rate 17 12 13 Blood Pressure - Lying Blood Pressure - Sitting Blood Pressure- Standing Blood Pressure 150/72 H 143/88 H Blood Pressure Mean 98 106 Pulse Oximetry Oxygen Delivery Method Sepsis Recent Fever Within 48 Hours Sepsis New/Unexplained Change in Mental Status Sepsis Action Taken by Nursing 02/23/21 11:30 02/23/21 12:00 Temperature Temperature Source Pulse Rate - Lying Pulse Rate - Sitting Pulse Rate - Standing Pulse Rate 62 62 Pulse Rate from SpO2 Sensor Respiratory Rate 16 Blood Pressure - Lying Blood Pressure - Sitting Blood Pressure- Standing Blood Pressure 146/98 H 160/86 H Blood Pressure Mean 114 110 Pulse Oximetry Oxygen Delivery Method Sepsis Recent Fever Within 48 Hours Sepsis New/Unexplained Change in Mental Status Sepsis Action Taken by Nursing Laboratory Data Result diagrams: 02/23/21 09:34 02/23/21 09:34 Lab Results 02/23/21 02/23/21 02/23/21 Range/Units 09:34 09:34 11:40 WBC 6.16 (4.8-10.8) K/uL RBC 3.91 L (4.7-6.1) M/uL Hgb 11.8 L (14.0-18.0) g/dL Hct 35.0 L (42-52) % MCV 89.5 (80-100) fL MCH 30.2 (25-34) pg MCHC 33.7 (32-36) g/dL RDW Std Deviation 43.2 (36.4-46.3) fL RDW Coeff of Vidal 13.3 (11.5-14.5) % Plt Count 206 (130-400) K/uL MPV 11.0 H (7.4-10.4) fL Immature Gran % (Auto) 0.0 % Neut % (Auto) 47.9 % Lymph % (Auto) 35.9 % Morrow % (Auto) 10.2 % Eos % (Auto) 5.5 % Baso % (Auto) 0.5 % Neut # (Auto) 2.95 (1.4-6.5) K/uL Lymph # (Auto) 2.21 (1.2-3.4) K/uL Morrow # (Auto) 0.63 H (0.11-0.59) K/uL Eos # (Auto) 0.34 (0-0.5) K/uL Baso # (Auto) 0.03 (0-0.2) K/uL Immature Gran # (Auto) 0.00 (0.00-0.02) K/uL Sodium 138 (136-145) mmol/L Potassium 4.3 (3.5-5.1) mmol/L Chloride 106 (98-107) mmol/L Carbon Dioxide 28 (21-32) mmol/L Anion Gap 4.0 (3-11) BUN 38 H (7-18) mg/dl Creatinine 1.82 H (0.6-1.4) mg/dl Est Cr Clr Drug Dosing Not Reportable Est GFR ( Amer) 43.6 ml/min Est GFR (Non-Af Amer) 37.6 ml/min BUN/Creatinine Ratio 21.1 H (10-20) Glucose 145 H (70-99) mg/dl Calcium 8.5 (8.5-10.1) mg/dl Total Bilirubin 0.4 (0.2-1) mg/dl AST 30 (15-37) U/L ALT 30 (12-78) U/L Alkaline Phosphatase 56 (45-117) U/L Troponin I < 0.015 (0-0.045) ng/ml Total Protein 6.8 (6.4-8.2) gm/dl Albumin 3.3 L (3.4-5.0) gm/dl Globulin 3.5 (2.5-4.0) gm/dl Albumin/Globulin Ratio 0.9 (0.9-2) COVID-19 Eval Order Covid19 at [facility] SARS-CoV-2 (PCR) (Negative) 02/23/21 Range/Units 11:40 WBC (4.8-10.8) K/uL RBC (4.7-6.1) M/uL Hgb (14.0-18.0) g/dL Hct (42-52) % MCV (80-100) fL MCH (25-34) pg MCHC (32-36) g/dL RDW Std Deviation (36.4-46.3) fL RDW Coeff of Vidal (11.5-14.5) % Plt Count (130-400) K/uL MPV (7.4-10.4) fL Immature Gran % (Auto) % Neut % (Auto) % Lymph % (Auto) % Morrow % (Auto) % Eos % (Auto) % Baso % (Auto) % Neut # (Auto) (1.4-6.5) K/uL Lymph # (Auto) (1.2-3.4) K/uL Morrow # (Auto) (0.11-0.59) K/uL Eos # (Auto) (0-0.5) K/uL Baso # (Auto) (0-0.2) K/uL Immature Gran # (Auto) (0.00-0.02) K/uL Sodium (136-145) mmol/L Potassium (3.5-5.1) mmol/L Chloride (98-107) mmol/L Carbon Dioxide (21-32) mmol/L Anion Gap (3-11) BUN (7-18) mg/dl Creatinine (0.6-1.4) mg/dl Est Cr Clr Drug Dosing Est GFR ( Amer) ml/min Est GFR (Non-Af Amer) ml/min BUN/Creatinine Ratio (10-20) Glucose (70-99) mg/dl Calcium (8.5-10.1) mg/dl Total Bilirubin (0.2-1) mg/dl AST (15-37) U/L ALT (12-78) U/L Alkaline Phosphatase (45-117) U/L Troponin I (0-0.045) ng/ml Total Protein (6.4-8.2) gm/dl Albumin (3.4-5.0) gm/dl Globulin (2.5-4.0) gm/dl Albumin/Globulin Ratio (0.9-2) COVID-19 Eval Order SARS-CoV-2 (PCR) NEGATIVE (Negative) Administered Medications Discontinued Medications Sodium Chloride (Nss 1000ml) 1,000 mls @ 999 mls/hr IV .Q1H1M ONE Stop: 02/23/21 10:32 Last Infusion: 02/23/21 11:40 Dose: 0 mls/hr Documented by: [id number] Admin: 02/23/21 10:25 Dose: 999 mls/hr Documented by: [id number] Ondansetron HCl (Ondansetron Inj 2 Mg/Ml 2 Ml Vial) 4 mg IV NOW STA Stop: 02/23/21 09:33 Last Admin: 02/23/21 10:25 Dose: 4 mg Documented by: [id number] Imaging Data Radiologist's Impression: Chest X-Ray 02/23/21 09:32 XR chest 1V portable CLINICAL HISTORY: Dizziness COMPARISON STUDY: 04/15/2020 FINDINGS: The cardiac and mediastinal contours are normal. There is no evidence of focal pulmonary consolidation. There is no evidence of failure. No pleural effusions are visualized.[ IMPRESSION: No active disease in the chest. ACT 112: Negative or not required by law. Electronically signed by: Tk Rodriguez M.D. 02/23/2021 10:[address] 02/23/21 09:32 CT OF THE HEAD WITHOUT CONTRAST CLINICAL HISTORY: dizzy COMPARISON STUDY: Head CT February 26, 2017. CT DOSE: 788.63 mGycm TECHNIQUE: Helical axial images of the head were obtained without IV contrast. Automated exposure control was utilized for the study. A dose lowering technique was utilized adhering to the principles of ALARA. FINDINGS: No acute intracranial hemorrhage, midline shift or mass effect is present. An old infarct within the left basal ganglia is unchanged. Left sided craniotomy is present. The ventricular system is unremarkable. The basal cisterns are patent. No extra-axial collections are present. There are no findings to suggest acute dural sinus thrombosis or acute territorial infarct. No significant calvarial abnormalities are present. Visualized portions of the sinuses and mastoid air cells are clear. IMPRESSION: No acute intracranial findings. No change in appearance of the brain. ACT 112: Negative or not required by law. Electronically signed by: Gerardo Patterson M.D. 02/23/2021 9:57 AM Discharge Plan Visit Data Chief Complaint: Syncope Stated Complaint: SYNCOPE ED Provider: Ricky Burch Discharge Problem: Syncope and collapse, Abnormal EKG Patient Disposition: Admitted As Inpatient Discharge Instructions Interventions: ED Discharge Assessment Last Done: 02/23/21 14:51
[2021-02-23 09:48] LABS: Basophils # (auto) 0.03 K/uL (0-0.2); Basophils % (auto) 0.5 %; Eosinophils # (auto) 0.34 K/uL (0-0.5); Eosinophils % (auto) 5.5 %; Hemoglobin 11.8 g/dL (14.0-18.0); Lymphocytes # (auto) 2.21 K/uL (1.2-3.4); Lymphocytes % (auto) 35.9 %; Mean Corpuscular Hemoglobin 30.2 pg (25-34); Mean Corpuscular Hgb Conc 33.7 g/dL (32-36); Mean Corpuscular Volume 89.5 fL (80-100); Monocytes # (auto) 0.63 K/uL (0.11-0.59); Monocytes % (auto) 10.2 %; Neutrophils # (auto) 2.95 K/uL (1.4-6.5); Neutrophils % (auto) 47.9 %; Platelet Count 206 K/uL (130-400); RDW Coefficient of Variation 13.3 % (11.5-14.5); RDW Standard Deviation 43.2 fL (36.4-46.3); Red Blood Count 3.91 M/uL (4.7-6.1); White Blood Count 6.16 K/uL (4.8-10.8)
--- NOTE | 2021-02-23 09:59 | CT Scan Report ---
CT OF THE HEAD WITHOUT CONTRAST CLINICAL HISTORY: dizzy COMPARISON STUDY: Head CT February 26, 2017. CT DOSE: 788.63 mGycm TECHNIQUE: Helical axial images of the head were obtained without IV contrast. Automated exposure con trol was utilized for the study. A dose lowering technique was utilized adhering to the principles o f ALARA. FINDINGS: No acute intracranial hemorrhage, midline shift or mass effect is present. An old infarct w ithin the left basal ganglia is unchanged. Left sided craniotomy is present. The ventricular system i s unremarkable. The basal cisterns are patent. No extra-axial collections are present. There are no f indings to suggest acute dural sinus thrombosis or acute territorial infarct. No significant calvaria l abnormalities are present. Visualized portions of the sinuses and mastoid air cells are clear. IMPRESSION: No acute intracranial findings. No change in appearance of the brain. ACT 112: Negative or not required by law. Electronically signed by: Gerardo Patterson M.D. 02/23/2021 9:57 AM
[2021-02-23 10:06] LABS: Alanine Aminotransferase 30 U/L (12-78); Albumin Level 3.3 gm/dl (3.4-5.0); Aspartate Aminotransferase 30 U/L (15-37); BUN Creatinine Ratio 21.1 (10-20); Blood Urea Nitrogen 38 mg/dl (7-18); Calcium 8.5 mg/dl (8.5-10.1); Carbon Dioxide 28 mmol/L (21-32); Chloride 106 mmol/L (98-107); Est GFR (African American) 43.6 ml/min; Est GFR (Non-African American) 37.6 ml/min; Glucose 145 mg/dl (70-99); Potassium 4.3 mmol/L (3.5-5.1); Sodium 138 mmol/L (136-145)
[2021-02-23 10:10] LABS: Albumin Globulin Ratio 0.9 (0.9-2); Alkaline Phosphatase 56 U/L (45-117); Bilirubin,Total 0.4 mg/dl (0.2-1); Globulin 3.5 gm/dl (2.5-4.0); Total Protein 6.8 gm/dl (6.4-8.2); Troponin I < 0.015 ng/ml (0-0.045)
--- NOTE | 2021-02-23 10:21 | XRay Report ---
XR chest 1V portable CLINICAL HISTORY: Dizziness COMPARISON STUDY: 04/15/2020 FINDINGS: The cardiac and mediastinal contours are normal. There is no evidence of focal pulmonary co nsolidation. There is no evidence of failure. No pleural effusions are visualized.[ IMPRESSION: No active disease in the chest. ACT 112: Negative or not required by law. Electronically signed by: Tk Rodriguez M.D. 02/23/2021 10:20 AM
--- NOTE | 2021-02-23 12:37 | History & Physical Report ---
Date of Service February 23, 2021 Assessment & Plan (1) Recurrent syncope: 65 yo M with hx HLD, DM2, HTN, CVA brought to ER for dizziness and syncopal episode, admitted for recurrent syncope and abnormal EKG. Recurrent Syncope - electrolytes WNL - Head CT negative, no clinical signs of intracranial mass being cause - given HTN and age, possible aortic stenosis/calcification. TTE for evaluation. - orthostatic vitals showing orthostatic hypotension with drop from 150 to 100 systolic between laying and standing without appropriate HR rise - likely also dehydrated with elevated BUN/Cr Abnormal EKG - sinus with 1st degree AV block, nonspecific T wave abnormality - TTE pending as above, may benefit from stress test given cardiac risk factors if focal changes found on echo - daily EKG, nitro for chest pain Anemia - Hg 11.8 today, 12 last month, 15 in 03/2020. - MCV 89 - iron studies ordered, hemoccult all stools to check for iron deficiency/occult GIB APRIL on CKD3 - baseline GFR appears to be 49-57; CKD3A - dropped to 43 with dehydration, rehydrate and monitor DM2 - home regimen of 24 unit glargine AM and 18 unit Daily? as well as regular insulin 6u BID + metformin - given hx high and low bsgs at senior care, placed on 14 unit lantus BID with SSI for daytime coverage to estimate required insulin coverage - hold metformin/PO diabetic medications - AM A1c HTN - home regimen of labetalol 200 BID and 100 daily (with noon BID dose), lisinopril, chlorthalidone, amlodipine - metoprolol 5 mg IV for breakthrough HTN sys BP>190, sanjuana >110 with HR >60 - unsure why patient is on labetalol in high doses rather than hydralazine/beta mitzy in combination with other prescribed antihypertensives HLD w/ hx CVA - cont statin, ASA 325 - AM lipid panel Autoimmune Colitis? - problem hx includes noninfectious colitis w/o other specification. If IBD, may warrant colonoscopy/EGD for above workup of anemia - unsure why patient is on nortryptiline and hydroxychloroquine? recommend day team get records from custodial/outpatient pharmacy records - reportedly also receives etanercept SQ weekly DVT ppx: lovenox FEN/GI: heart health, DM2 Code Status: Full Code Dispo: MEd/surg with tele. (2) Anemia: (3) Hyperlipidemia: (4) Diabetes: (5) HTN (hypertension): (6) Surgical history unknown: (7) CVA (cerebral infarction): (8) Abnormal EKG: History of Present Illness 65-year-old male with a past medical history of hypertension diabetes, hyperlipidemia, CVA who presents emergency department from [facility] for repeated episodes of syncope.First episode of syncope was approximately a month ago. He states that he fell in the cell did not tell anyone at that time.He states he frequently gets dizzy when he gets up from sitting to standing but not every time. Denies any chest pain or shortness of breath at rest or with exertion.Denies any palpitations or abnormal heart rhythms.He denies any history of heart attack or heart problems. Review of medical record reveals 4 ER visits since June 2019 with multiple related to complaints of dizziness or dehydration. He has never been admitted for these concerns. Primary Care Provider: [facility] Allergies Allergy/AdvReac Type Severity Reaction Status Date / Time No Known Allergies Allergy Unverified 12/24/20 10:49 Home Medications Medication Instructions Recorded Confirmed Type Enbrel 50 mg SUBCUT WK 10/18/20 02/23/21 History Glucagon (HCl) Emergency Kit 1 mg SUBCUT DAILY PRN 10/18/20 02/23/21 History Novolin R Flexpen 6 unit SUBCUT BID 10/18/20 02/23/21 History aspirin 325 mg PO DAILY 10/18/20 02/23/21 History atorvastatin 10 mg PO DAILY 10/18/20 02/23/21 History docusate sodium 100 mg PO BID 10/18/20 02/23/21 History folic acid 1 mg PO DAILY 10/18/20 02/23/21 History hydroxychloroquine 200 mg PO DAILY 10/18/20 02/23/21 History insulin glargine 18 unit SUBCUT DAILY 10/18/20 02/23/21 History insulin glargine 24 unit SUBCUT QAM 10/18/20 02/23/21 History metformin 500 mg PO BID 10/18/20 02/23/21 History nortriptyline 25 mg PO BID 10/18/20 02/23/21 History chlorthalidone 25 mg PO DAILY 12/24/20 02/23/21 History cyanocobalamin (vitamin B-12) 1,000 mcg PO DAILY 12/24/20 02/23/21 History [Vitamin B-12] amlodipine [Norvasc] 5 mg PO QPM 30 Days #30 tab 02/26/21 Rx labetalol 50 mg PO QAM 30 Days #15 tab 02/26/21 Rx labetalol 100 mg PO DAILY@1500 30 Days tab 02/26/21 Rx lisinopril [Zestril] 40 mg PO QPM 30 Days #30 tab 02/26/21 Rx Past Med/Surg History Medical History (Updated 02/23/21 @ 17:26 by Moi Eldridge MD) Colitis CVA (cerebral infarction) (2016) Diabetes HTN (hypertension) Hyperlipidemia Orthostatic hypotension (2016) Syncope (2016) Surgical History (Updated 02/23/21 @ 17:24 by Moi Eldridge MD) S/P craniotomy Surgical history unknown Family History Family history non-contributory Social History Smoking Status: Former smoker Tobacco Type: Cigarettes Age Started Using Tobacco: 13; packs per day: 0.5; Second Hand Exposure: No; Hx Alcohol Use: No Hx Substance Use: No Preferred Language: Bengali Communication Ability: Effective Active Directory Architect Required: No Beliefs That Will Affect Care: None marital status: Current Living Situation: Other Current Living Situation Comment: [facility] current occupational status: unemployed Feels Safe at Home: Yes Assistive Devices: None Review of Systems Constitutional: no fever, no chills, no sweats and no fatigue Eyes: no blind spots and no discharge Ear, Nose, Mouth, Throat: no hearing loss and no nasal congestion Respiratory: no cough and no dyspnea Cardiovascular: no chest pain, no dyspnea on exertion and no edema Gastrointestinal: no abdominal pain, no nausea, no vomiting, no constipation, no diarrhea/loose stools and no blood in stools Musculoskeletal: no joint pain and no myalgia Neurologic: + unsteadiness, + dizziness and + syncope; no localized weakness, no tingling, no numbness and no headache(s) Endocrine: no fatigue Physical Exam Physical Exam: Constitutional: man sitting up in bed in NAD Eyes: EOMI, pupils equal and reactive bilaterally, no scleral icterus Cardiac: tachycardic, regular rhythm, no murmurs, gallops or rubs. Normal S1, S2 Pulm: CTA BL, no wheezes, rhonchi, crackles or rubs, moving air well throughout both lungs Abd: soft, nontender, nondistended, normal bowel sounds, no rebound or guarding Extremities: 2+ peripheral pulses, no edema Neuro: no focal deficits, moving all 4 limbs, A&Ox3 Results & Data Results & Data ([facility]) Vital Signs (Past 12 Hours) Vital Signs Temp Pulse Resp BP Pulse Ox 02/23/21 11:30 62 16 146/98 H 02/23/21 11:00 63 13 143/88 H 02/23/21 10:32 61 12 150/72 H 02/23/21 10:30 64 17 02/23/21 10:25 65 19 105/82 02/23/21 10:24 64 14 143/86 H 02/23/21 10:02 64 14 136/90 100 02/23/21 10:00 63 14 100 02/23/21 09:43 100 02/23/21 09:38 59 L 12 99 02/23/21 09:36 36.7 C 62 18 145/71 H 100 02/23/21 09:35 60 114/79 100 Laboratory Results WBC 6.16 K/uL (4.8-10.8) 02/23/21 09:34 RBC 3.91 M/uL (4.7-6.1) L 02/23/21 09:34 Hgb 11.8 g/dL (14.0-18.0) L 02/23/21 09:34 Hct 35.0 % (42-52) L 02/23/21 09:34 MCV 89.5 fL (80-100) 02/23/21 09:34 MCH 30.2 pg (25-34) 02/23/21 09:34 MCHC 33.7 g/dL (32-36) 02/23/21 09:34 RDW Std Deviation 43.2 fL (36.4-46.3) 02/23/21 09:34 RDW Coeff of Vidal 13.3 % (11.5-14.5) 02/23/21 09:34 Plt Count 206 K/uL (130-400) 02/23/21 09:34 MPV 11.0 fL (7.4-10.4) H 02/23/21 09:34 Immature Gran % (Auto) 0.0 % 02/23/21 09:34 Neut % (Auto) 47.9 % 02/23/21 09:34 Lymph % (Auto) 35.9 % 02/23/21 09:34 [place] % (Auto) 10.2 % 02/23/21 09:34 Eos % (Auto) 5.5 % 02/23/21 09:34 Baso % (Auto) 0.5 % 02/23/21 09:34 Neut # (Auto) 2.95 K/uL (1.4-6.5) 02/23/21 09:34 Lymph # (Auto) 2.21 K/uL (1.2-3.4) 02/23/21 09:34 [place] # (Auto) 0.63 K/uL (0.11-0.59) H 02/23/21 09:34 Eos # (Auto) 0.34 K/uL (0-0.5) 02/23/21 09:34 Baso # (Auto) 0.03 K/uL (0-0.2) 02/23/21 09:34 Immature Gran # (Auto) 0.00 K/uL (0.00-0.02) 02/23/21 09:34 Sodium 138 mmol/L (136-145) 02/23/21 09:34 Potassium 4.3 mmol/L (3.5-5.1) 02/23/21 09:34 Chloride 106 mmol/L (98-107) 02/23/21 09:34 Carbon Dioxide 28 mmol/L (21-32) 02/23/21 09:34 Anion Gap 4.0 (3-11) 02/23/21 09:34 BUN 38 mg/dl (7-18) H 02/23/21 09:34 Creatinine 1.82 mg/dl (0.6-1.4) H 02/23/21 09:34 Est Cr Clr Drug Dosing Not Reportable 02/23/21 09:34 Est GFR ( Amer) 43.6 ml/min 02/23/21 09:34 Est GFR (Non-Af Amer) 37.6 ml/min 02/23/21 09:34 BUN/Creatinine Ratio 21.1 (10-20) H 02/23/21 09:34 Glucose 145 mg/dl (70-99) H 02/23/21 09:34 POC Glucose 145 mg/dl (70-99) H 02/23/21 20:16 Calcium 8.5 mg/dl (8.5-10.1) 02/23/21 09:34 Iron 100 mcg/dl (35-175) 02/23/21 15:48 TIBC 260 mcg/dl (250-450) 02/23/21 15:48 Transferrin 191 mg/dl (200-360) L 02/23/21 15:48 Transferrin % Sat 37 % (20-50) 02/23/21 15:48 Ferritin 72.5 ng/ml (8-388) 02/23/21 15:48 Total Bilirubin 0.4 mg/dl (0.2-1) 02/23/21 09:34 AST 30 U/L (15-37) 02/23/21 09:34 ALT 30 U/L (12-78) 02/23/21 09:34 Alkaline Phosphatase 56 U/L (45-117) 02/23/21 09:34 Troponin I < 0.015 ng/ml (0-0.045) 02/23/21 15:48 Total Protein 6.8 gm/dl (6.4-8.2) 02/23/21 09:34 Albumin 3.3 gm/dl (3.4-5.0) L 02/23/21 09:34 Globulin 3.5 gm/dl (2.5-4.0) 02/23/21 09:34 Albumin/Globulin Ratio 0.9 (0.9-2) 02/23/21 09:34 Nasal Screen MRSA (PCR) Negative (Negative) 02/23/21 16:20 COVID-19 Eval Order Covid19 at [facility] 02/23/21 11:40 SARS-CoV-2 (PCR) NEGATIVE (Negative) 02/23/21 11:40 Impressions Chest X-Ray 02/23/21 09:32 XR chest 1V portable CLINICAL HISTORY: Dizziness COMPARISON STUDY: 04/15/2020 FINDINGS: The cardiac and mediastinal contours are normal. There is no evidence of focal pulmonary consolidation. There is no evidence of failure. No pleural effusions are visualized.[ IMPRESSION: No active disease in the chest. ACT 112: Negative or not required by law. Electronically signed by: Tk Rodriguez M.D. 02/23/2021 10:[address] 02/23/21 09:32 CT OF THE HEAD WITHOUT CONTRAST CLINICAL HISTORY: dizzy COMPARISON STUDY: Head CT February 26, 2017. CT DOSE: 788.63 mGycm TECHNIQUE: Helical axial images of the head were obtained without IV contrast. Automated exposure control was utilized for the study. A dose lowering technique was utilized adhering to the principles of ALARA. FINDINGS: No acute intracranial hemorrhage, midline shift or mass effect is present. An old infarct within the left basal ganglia is unchanged. Left sided craniotomy is present. The ventricular system is unremarkable. The basal cis terns are patent. No extra-axial collections are present. There are no findings to suggest acute dural sinus thrombosis or acute territorial infarct. No significant calvarial abnormalities are present. Visualized portions of the sinuses and mastoid air cells are clear. IMPRESSION: No acute intracranial findings. No change in appearance of the brain. ACT 112: Negative or not required by law. Electronically signed by: Gerardo Patterson M.D. 02/23/2021 9:57 AM Supervising Physician Co-Signing Physician Notes During my face to face encounter with the patient, I obtained a history and physical examination. I reviewed and agree with above note and discussed case with Dr Holguin I answered all of the patient's question. will admit for dehydration. will provide IVF Resident Activity Tracking Resident Involvement: Resident Care Provided Care Provided: Adult Hospital Medicine (1) HTN (hypertension) Hypertension type: unspecified Qualified Code(s): I10 - Essential (primary) hypertension
[2021-02-23] MEDS ORDERED: GLUCAGON FOR INJ 1 MG VIAL SQ PRN (15:29)
[2021-02-23] MEDS ORDERED: POLYETHYLENE (MIRALAX) 17 GM PACK PO PRN (15:29)
[2021-02-23] MEDS ORDERED: MAGNESIUM HYDROXIDE SUSP 30 ML UDC PO PRN (15:29)
[2021-02-23] MEDS ORDERED: ACETAMINOPHEN 325 MG TAB PO PRN (15:29)
[2021-02-23] MEDS ORDERED: amLODIPine BESYLATE 5 MG TAB PO SCH (15:29)
[2021-02-23] MEDS ORDERED: GLUCOSE 40% GEL 15 GM TUBE PO PRN (15:29)
[2021-02-23] MEDS ORDERED: NITROGLYCERIN SL 0.4 MG/TAB TAB SL PRN (15:29)
[2021-02-23] MEDS ORDERED: ASPIRIN 325 MG ECTAB PO SCH (15:29)
[2021-02-23] MEDS ORDERED: ALUMINUM/MAGNESIUM SUSP 30 ML UDC PO PRN (15:29)
[2021-02-23] MEDS ORDERED: ONDANSETRON INJ 2 MG/ML 2 ML VIAL IV PRN (15:29)
[2021-02-23] MEDS ORDERED: DEXTROSE 50% 50 ML SYRINGE IV PRN (15:29)
[2021-02-23] MEDS ORDERED: CARBOHYDRATES FOR HYPOGLYCEMIA PO PRN (15:29)
[2021-02-23] MEDS ORDERED: GLUCOSE 10 TABS/TUBE PO PRN (15:29)
[2021-02-23 16:29] LABS: Ferritin 72.5 ng/ml (8-388)
[2021-02-23] MEDS: HYDROXYCHLOROQUINE SULFATE 200 MG TAB PO SCH (16:49)
[2021-02-23] MEDS: ATORVASTATIN 10 MG TAB PO SCH (16:49)
[2021-02-23] MEDS: CHLORTHALIDONE 25 MG TAB PO SCH (16:49)
[2021-02-23] MEDS: INSULIN ASPART 100 UNITS/ML 3 ML PEN SC SCH ×2 (16:52→22:33)
--- NOTE | 2021-02-23 17:11 | Cardiology Consultation ---
Date of Consultation February 23, 2021 Assessment & Plan (1) Recurrent syncope: (2) Orthostatic hypotension: (3) HTN (hypertension): (4) Diabetes: Patient with history of marked orthostatic hypotension with simultaneously uncontrolled hypertension who had labile hemodynamics and substantial symptoms in 2016, then experienced an extended interval without significant symptoms, and now again has significant orthostatic symptoms with multiple episodes of presyncope/syncope. Although long-term control of hypertension is certainly important in this patient with multiple vascular risk factors and a prior CVA, will need to allow some degree of permissive hypertension in the near term given his profound degree of current orthostatic hypotension (50 mmHg drop upon standing) and the resultant increased risk of further syncopal episodes. He is currently on multiple vasoactive medications, including: Amlodipine Chlorthalidone Labetalol Lisinopril Nitroglycerin PRN Would taper his vasoactive regimen somewhat and favor administration of medications in the evening where possible, in order to treat his supine hypertension while reducing the tendency to daytime orthostasis. -Would avoid midodrine, this will only exacerbate his hypertension and he has already failed a trial of this medication. -It appears that he was on clonidine at one point (around 2015), this would seem ideal in this setting in that it would help manage his labile hypertension without exacerbating his orthostasis, it would be worth exploring why this was discontinued. If no extreme adverse reaction, would consider reintroducing clonidine as other medications are weaned. -Could first reduce labetalol to 50 mg every morning/100 mg every afternoon to both reduce direct alpha blocking effect (which contributes to orthostasis) and simultaneously reduce beta-blocking effect (to allow more physiologic heart rate response to activity and standing, his heart rate appears blunted). Depending upon BP, further downward titration of labetalol may be appropriate. -Change amlodipine and lisinopril to evening dosing. They are long-acting and will have residual effect the following day, however he will be less prone to a blood pressure neel while he is upright if he takes the medications in the evening. 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 There is no evidence of dysrhythmia and he has a structurally normal heart on prior echocardiogram and current examination. Would not pursue an arrhythmia work-up given the nature of his symptoms (gradual onset/persistent) suggesting orthostasis rather than dysrhythmia (where abrupt symptoms and traumatic syncope would be more likely) as well as given his obvious current orthostatic issues. Managing his labile hemodynamics will be a long-term project, thus outpatient oversight at [facility] with client relationship consultant input will be warranted. History of Present Illness Reason for Consultation: Recurrent syncope Requesting Physician: Bianca Holguin MD Attending Physician: Skip Martinez History of Present Illness 65-year-old man with history of orthostatic hypotension, diabetes mellitus (on insulin), hypertension, and prior CVA who was admitted 02/23/2021 with complaints of frequent presyncope and several episodes of recent syncope. In 2016 he had a similar presentation with recurrent episodes of syncope felt to be orthostatic, during one of his presentations he was found to have had a subacute to acute basal ganglia CVA. Of note, during this 2016 hospitalization his initial BP was 91/61 mmHg, the following day he was 198/118 mmHg. His orthostasis was sufficiently severe that he was placed on midodrine for several months, this was discontinued later that year for uncertain reasons. After a period of several weeks to months of presyncope/syncope in 2015, he apparently did well for some time, but in recent months has again been noting orthostatic lightheadedness and has had several episodes of syncope. He denies any chest pain, dyspnea, subjective palpitations, or any associated symptoms. He describes a feeling of profound weakness followed by near loss of consciousness more frequently with occasional actual loss of consciousness. He has apparently not had traumatic syncope. At the time of my evaluation this afternoon, he had no complaints at rest. Allergies Allergy/AdvReac Type Severity Reaction Status Date / Time No Known Allergies Allergy Unverified 12/24/20 10:49 Home Medications Medication Instructions Recorded Confirmed Type aspirin 325 mg PO DAILY 10/18/20 02/23/21 History atorvastatin 10 mg PO DAILY 10/18/20 02/23/21 History docusate sodium 100 mg PO BID 10/18/20 02/23/21 History etanercept [Enbrel] 50 mg SUBCUT WK 10/18/20 02/23/21 History folic acid 1 mg PO DAILY 10/18/20 02/23/21 History glucagon HCl [Glucagon (HCl) 1 mg SUBCUT DAILY PRN 10/18/20 02/23/21 History Emergency Kit] hydroxychloroquine 200 mg PO DAILY 10/18/20 02/23/21 History insulin glargine 18 unit SUBCUT DAILY 10/18/20 02/23/21 History insulin glargine 24 unit SUBCUT QAM 10/18/20 02/23/21 History insulin regular human [Novolin R 6 unit SUBCUT BID 10/18/20 02/23/21 History Flexpen] labetalol 200 mg PO BID 10/18/20 02/23/21 History lisinopril 40 mg PO DAILY 10/18/20 02/23/21 History metformin 500 mg PO BID 10/18/20 02/23/21 History nortriptyline 25 mg PO BID 10/18/20 02/23/21 History amlodipine 5 mg PO DAILY 12/24/20 02/23/21 History chlorthalidone 25 mg PO DAILY 12/24/20 02/23/21 History cyanocobalamin (vitamin B-12) 1,000 mcg PO DAILY 12/24/20 02/23/21 History [Vitamin B-12] labetalol 100 mg PO DAILY 12/24/20 02/23/21 History Patient History Medical History (Updated 02/23/21 @ 17:26 by Moi Eldridge MD) Colitis CVA (cerebral infarction) (2016) Diabetes HTN (hypertension) Hyperlipidemia Orthostatic hypotension (2016) Syncope (2016) Surgical History (Updated 02/23/21 @ 17:24 by Moi Eldridge MD) S/P craniotomy Surgical history unknown Family History Family history non-contributory Social History Smoking Status: Former smoker Tobacco Type: Cigarettes Age Started Using Tobacco: 13; packs per day: 0.5; Second Hand Exposure: No; Do You Dip or Chew Tobacco: No; Hx Alcohol Use: No Hx Substance Use: No Preferred Language: Polish Communication Ability: Effective Press Feeder Broomcorn Required: No Beliefs That Will Affect Care: None marital status: Current Living Situation: Other Current Living Situation Comment: [place] current occupational status: unemployed Other Information That Helps Us Care for You: No Feels Safe at Home: Yes Safety Concerns: Feels Safe At This Time Assistive Devices: None Physical Exam Physical Exam: Normal habitus adult black male in no distress. Afebrile. BP by MD 170/80 mmHg seated, dropped to 120/70 mmHg upon standing (no symptoms). Pulse 6o bpm and regular. Skin: no ecchymoses or generalized lesions. HEENT: unremarkable. Neck: Jugular venous pulse at the clavicle at 90 degrees, no carotid bruits. Lungs: clear. Cardiac: regular rhythm, normal S1 and S2, no murmur or gallop. Abdomen: benign. Extremities: no edema, pulses intact. Neurologic: normal affect and conversation, grossly nonfocal. Results & Data ([facility]) Vital Signs (Past 12 Hours) Vital Signs Temp Pulse Pulse Resp BP BP Pulse Ox 02/23/21 15:43 97.9 F 63 171/89 H 100 02/23/21 14:30 61 175/106 H 02/23/21 14:01 63 02/23/21 14:00 61 02/23/21 13:30 62 180/99 H 02/23/21 13:00 63 12 178/97 H 02/23/21 12:31 62 142/90 H 02/23/21 12:30 62 02/23/21 12:00 62 160/86 H 02/23/21 11:30 62 16 146/98 H 02/23/21 11:00 63 13 143/88 H 02/23/21 10:32 61 12 150/72 H 02/23/21 10:30 64 17 02/23/21 10:25 65 19 105/82 02/23/21 10:24 64 14 143/86 H 02/23/21 10:02 64 14 136/90 100 02/23/21 10:00 63 14 100 02/23/21 09:43 100 02/23/21 09:38 59 L 12 99 02/23/21 09:36 98.1 F 62 18 145/71 H 100 02/23/21 09:35 60 114/79 100 Laboratory Results Hemoglobin 11.8 with normal white count and platelet count. Normal electrolytes, BUN 38, creatinine 1.82. Troponin negative x2 Diagnostic Findings Chest x-ray and CT of the head with no acute findings. ECG showed sinus rhythm at 60 bpm with first-degree AV block and diffuse T wave flattening. An echocardiogram from 2016 showed normal systolic function with moderate LVH, no significant valvular disease. PG Care Time/CCT Total # of Minutes Spent Total Time Spent with Patient: Total time spent is greater than 50% in coordination of care (as documented) at patient's floor/unit and/or counseling patient: Coding Level of Care Code 75672 Inpt Consult Level 5 Diagnoses Recurrent syncope R55 Orthostatic hypotension I95.1 HTN (hypertension) I10 Hypertension type: unspecified Diabetes E11.9 Time Spent (min) 75 (1) HTN (hypertension) Hypertension type: unspecified Qualified Code(s): I10 - Essential (primary) hypertension
[2021-02-23] MEDS ORDERED: LABETALOL HCL 200 MG TAB PO SCH (21:00)
[2021-02-23] MEDS ORDERED: METOPROLOL TARTRATE 1 MG/ML VIAL IV PRN (22:14)
[2021-02-23] MEDS: INSULIN GLARGINE SOLOSTAR 100 UNITS/ML 3 ML PEN SC SCH (22:33)
[2021-02-23] MEDS: DOCUSATE SODIUM 100 MG CAP PO SCH (22:33)
[2021-02-23] MEDS: NORTRIPTYLINE HCL 25 MG CAP PO SCH (22:34)
[2021-02-24 06:32] LABS: Basophils # (auto) 0.02 K/uL (0-0.2); Basophils % (auto) 0.3 %; Eosinophils # (auto) 0.27 K/uL (0-0.5); Eosinophils % (auto) 4.6 %; Hematocrit (blood only) 35.3 % (42-52); Hemoglobin 11.9 g/dL (14.0-18.0); Immature Granulocytes # (auto) 0.01 K/uL (0.00-0.02); Immature Granulocytes % (auto) 0.2 %; Lymphocytes # (auto) 2.17 K/uL (1.2-3.4); Lymphocytes % (auto) 37.2 %; Mean Corpuscular Hemoglobin 30.1 pg (25-34); Mean Corpuscular Hgb Conc 33.7 g/dL (32-36); Mean Corpuscular Volume 89.4 fL (80-100); Mean Platelet Volume 10.7 fL (7.4-10.4); Monocytes # (auto) 0.45 K/uL (0.11-0.59); Monocytes % (auto) 7.7 %; Neutrophils # (auto) 2.91 K/uL (1.4-6.5); Platelet Count 202 K/uL (130-400); RDW Coefficient of Variation 13.1 % (11.5-14.5); Red Blood Count 3.95 M/uL (4.7-6.1); White Blood Count 5.83 K/uL (4.8-10.8)
[2021-02-24 07:11] LABS: Albumin Globulin Ratio 0.9 (0.9-2); Albumin Level 3.1 gm/dl (3.4-5.0); BUN Creatinine Ratio 22.2 (10-20); Bilirubin,Total 0.3 mg/dl (0.2-1); Calcium 8.4 mg/dl (8.5-10.1); Creatinine Clr Calc Pharmacy 50.6 ml/min; Est GFR (African American) 49.8 ml/min; Globulin 3.6 gm/dl (2.5-4.0); Total Protein 6.7 gm/dl (6.4-8.2)
[2021-02-24] MEDS: ASPIRIN 325 MG ECTAB PO SCH (07:31)
[2021-02-24] MEDS: ATORVASTATIN 10 MG TAB PO SCH (07:32)
[2021-02-24] MEDS: HYDROXYCHLOROQUINE SULFATE 200 MG TAB PO SCH (07:32)
[2021-02-24] MEDS: CHLORTHALIDONE 25 MG TAB PO SCH (07:32)
[2021-02-24] MEDS: DOCUSATE SODIUM 100 MG CAP PO SCH ×2 (07:33→21:51)
[2021-02-24] MEDS: NORTRIPTYLINE HCL 25 MG CAP PO SCH ×2 (07:33→21:52)
[2021-02-24] MEDS: ENOXAPARIN INJ 40 MG/0.4 ML SYR SQ SCH (07:33)
--- NOTE | 2021-02-24 08:10 | Hospitalist Progress Note ---
Date of Service February 24, 2021 Assessment & Plan (1) Recurrent syncope: 65 yo M with hx HLD, DM2, HTN, CVA brought to ER for dizziness and syncopal episode, admitted for recurrent syncope and abnormal EKG. Recurrent Syncope Prior ED visits for dizziness and dehydration without prior admission. Continues to have recurrent syncopal episode. Head CT- negative, normal electrolytes. Orthostatic vitals demonstrating orthostatic hypotension with a drop from 1 50-100 between lying and standing without appropriate heart rate elevation. Evidence of dehydration by elevated BUN/Cr ratio, could be contributing to syncopal episodes. Given the increasing frequency of this episode patient was admitted for further evaluation and management and cardiology consultation. Cardiology recommending modification to antihypertensive regimen including slow tapering of labetalol, and changing patient's amlodipine and lisinopril to evening dosing. -electrolytes WNL -Cardiology consulted -Taper labetalol 50 every morning, 100 q. afternoon. -Transition lisinopril and amlodipine to evening doses -At present no need for arrhythmia work-up -Clonidine for systolic pressures greater than 200 Abnormal EKG Demonstrating sinus with first-degree AV block and nonspecific T wave abnormality, cardiology was consulted see above. Follow-up TTE -EKG and nitro for chest pain Anemia Hg 11.8 today, 12 last month, 15 in 03/2020.MCV 89. iron studies ordered. Suspect secondary to anemia of chronic disease -Hemoccult pending APRIL on CKD3 baseline GFR appears to be 49-57; CKD3A -Daily BMP -Avoid nephrotoxins DM2 with neuropathy home regimen of 24 unit glargine AM and 18 unit Daily? as well as regular insulin 6u BID + metformin. Given hx high and low bsgs at senior care, placed on 14 unit lantus BID with SSI for daytime coverage to estimate required insulin coverage - hold metformin/PO diabetic medications - A1C 10.5 - Continue nortriptyline 25 mg p.o. twice daily HTN Complex antihypertensive regimen, see cardiology consultation and documentation above. Plan is to transition amlodipine and lisinopril to evening dosing, and slowly decrease labetalol, with as needed clonidine as needed HLD w/ hx CVA - cont statin, ASA 325 - Lipid panel pending - Continue atorvastatin 40 mg Ulcerative Colitis Diagnosed a number of years ago, no recent flareups. Could be source of present anemia either acute bleed or secondary to anemia of chronic disease. Will monitor hemoglobin and investigate further as warranted. In the interim continue hydroxychloroquine 200 mg p.o. daily -Hydroxychloroquine 200 mg p.o. daily Rheumatoid arthritis Patient with history of rheumatoid arthritis, treated with weekly Enbrel injections, has been tolerating well. Receives Enbrel on Wednesdays. -Enbrel q. weekly DVT ppx: lovenox FEN/GI: heart health, DM2 Code Status: Full Code Dispo: Med/surg with tele. (2) Anemia: (3) Hyperlipidemia: (4) Diabetes: (5) HTN (hypertension): (6) Surgical history unknown: (7) CVA (cerebral infarction): (8) Abnormal EKG: Admission and Anticipated Discharge Date Admission Date: February 23, 2021 Supervising Physician Co-Signing Physician Notes Resident Physician Supervision Note: I independently interviewed and examined the patient and verified the hinds history and physical, reviewed labs and image studies and agree with resident Dr. Nic Ahuja findings and care plan. Subjective Patient lying in bed this morning in no acute distress. Reports feeling better since yesterday. Patient relate a history similar to that documented in the history and physical, noted with heated syncopal episodes. Patient was unaware of his diagnosis of ulcerative colitis, requesting Enbrel for his rheumatoid arthritis. Acute concerns relate to duration of stay, all questions were answered. Physical Exam Physical Exam: General: No acute distress HEENT: Normocephalic atraumatic Neck: No significant lymphadenopathy, trachea midline, normal to visual inspection Cardiac: Regular rate and rhythm, normal S1, normal S2, I did not appreciated any significant murmurs rubs or gallops, I did not appreciate any significant pedal edema, No calf tenderness, capillary refill is less than 3 seconds Respiratory: Clear to auscultation bilaterally with symmetrical chest rise, I did not appreciate any significant wheezes, rales, rhonchi, no increased work of breathing GI: Normal bowel sounds, soft, nontender in all 4 quadrants, nondistended MSK: No sensory or motor changes, moves all extremities without issue, extremities are warm and well-perfused Skin: Power, clean, dry, intact. Neuro: Alert and oriented x4 Psych: Calm, cooperative, logical thought process Results & Data Results & Data ([facility]) Vital Signs (Past 12 Hours) Vital Signs Temp Pulse Resp BP Pulse Ox Pulse Ox 02/24/21 04:05 36.8 C 66 18 136/77 99 02/24/21 00:20 98 02/23/21 22:49 37.0 C 67 18 128/77 98 Laboratory Results 02/24/21 02/24/21 02/24/21 Range/Units 08:03 06:19 06:19 WBC 5.83 (4.8-10.8) K/uL RBC 3.95 L (4.7-6.1) M/uL Hgb 11.9 L (14.0-18.0) g/dL Hct 35.3 L (42-52) % MCV 89.4 (80-100) fL MCH 30.1 (25-34) pg MCHC 33.7 (32-36) g/dL RDW Std Deviation 43.0 (36.4-46.3) fL RDW Coeff of Vidal 13.1 (11.5-14.5) % Plt Count 202 (130-400) K/uL MPV 10.7 H (7.4-10.4) fL Immature Gran % (Auto) 0.2 % Neut % (Auto) 50.0 % Lymph % (Auto) 37.2 % [place] % (Auto) 7.7 % Eos % (Auto) 4.6 % Baso % (Auto) 0.3 % Neut # (Auto) 2.91 (1.4-6.5) K/uL Lymph # (Auto) 2.17 (1.2-3.4) K/uL [place] # (Auto) 0.45 (0.11-0.59) K/uL Eos # (Auto) 0.27 (0-0.5) K/uL Baso # (Auto) 0.02 (0-0.2) K/uL Immature Gran # (Auto) 0.01 (0.00-0.02) K/uL Sodium 136 (136-145) mmol/L Potassium 5.0 D (3.5-5.1) mmol/L Chloride 106 (98-107) mmol/L Carbon Dioxide 27 (21-32) mmol/L Anion Gap 3.0 (3-11) BUN 36 H (7-18) mg/dl Creatinine 1.63 H (0.6-1.4) mg/dl Est Cr Clr Drug Dosing 50.6 Est GFR ( Amer) 49.8 ml/min Est GFR (Non-Af Amer) 43.0 ml/min BUN/Creatinine Ratio 22.2 H (10-20) Glucose 251 H (70-99) mg/dl POC Glucose 210 H (70-99) mg/dl Estimat Average Glucose Hemoglobin A1c Calcium 8.4 L (8.5-10.1) mg/dl Iron (35-175) mcg/dl TIBC (250-450) mcg/dl Transferrin (200-360) mg/dl Transferrin % Sat (20-50) % Ferritin (8-388) ng/ml Total Bilirubin 0.3 (0.2-1) mg/dl AST 28 (15-37) U/L ALT 28 (12-78) U/L Alkaline Phosphatase 62 (45-117) U/L Troponin I (0-0.045) ng/ml Total Protein 6.7 (6.4-8.2) gm/dl Albumin 3.1 L (3.4-5.0) gm/dl Globulin 3.6 (2.5-4.0) gm/dl Albumin/Globulin Ratio 0.9 (0.9-2) Triglycerides 74 (0-150) mg/dl Cholesterol 107 (0-200) mg/dl LDL Cholesterol, Calc 51 mg/dl VLDL Cholesterol, Calc 15 mg/dl HDL Cholesterol 41 mg/dl Cholesterol/HDL Ratio 3 Nasal Screen MRSA (PCR) (Negative) COVID-19 Eval Order SARS-CoV-2 (PCR) (Negative) 02/23/21 02/23/21 02/23/21 Range/Units 20:16 16:20 15:48 WBC (4.8-10.8) K/uL RBC (4.7-6.1) M/uL Hgb (14.0-18.0) g/dL Hct (42-52) % MCV (80-100) fL MCH (25-34) pg MCHC (32-36) g/dL RDW Std Deviation (36.4-46.3) fL RDW Coeff of Vidal (11.5-14.5) % Plt Count (130-400) K/uL MPV (7.4-10.4) fL Immature Gran % (Auto) % Neut % (Auto) % Lymph % (Auto) % [place] % (Auto) % Eos % (Auto) % Baso % (Auto) % Neut # (Auto) (1.4-6.5) K/uL Lymph # (Auto) (1.2-3.4) K/uL [place] # (Auto) (0.11-0.59) K/uL Eos # (Auto) (0-0.5) K/uL Baso # (Auto) (0-0.2) K/uL Immature Gran # (Auto) (0.00-0.02) K/uL Sodium (136-145) mmol/L Potassium (3.5-5.1) mmol/L Chloride (98-107) mmol/L Carbon Dioxide (21-32) mmol/L Anion Gap (3-11) BUN (7-18) mg/dl Creatinine (0.6-1.4) mg/dl Est Cr Clr Drug Dosing Est GFR ( Amer) ml/min Est GFR (Non-Af Amer) ml/min BUN/Creatinine Ratio (10-20) Glucose (70-99) mg/dl POC Glucose 145 H (70-99) mg/dl Estimat Average Glucose Hemoglobin A1c Calcium (8.5-10.1) mg/dl Iron (35-175) mcg/dl TIBC (250-450) mcg/dl Transferrin (200-360) mg/dl Transferrin % Sat (20-50) % Ferritin (8-388) ng/ml Total Bilirubin (0.2-1) mg/dl AST (15-37) U/L ALT (12-78) U/L Alkaline Phosphatase (45-117) U/L Troponin I < 0.015 (0-0.045) ng/ml Total Protein (6.4-8.2) gm/dl Albumin (3.4-5.0) gm/dl Globulin (2.5-4.0) gm/dl Albumin/Globulin Ratio (0.9-2) Triglycerides (0-150) mg/dl Cholesterol (0-200) mg/dl LDL Cholesterol, Calc mg/dl VLDL Cholesterol, Calc mg/dl HDL Cholesterol mg/dl Cholesterol/HDL Ratio Nasal Screen MRSA (PCR) Negative (Negative) COVID-19 Eval Order SARS-CoV-2 (PCR) (Negative) 02/23/21 02/23/21 02/23/21 Range/Units 15:48 15:48 15:01 WBC (4.8-10.8) K/uL RBC (4.7-6.1) M/uL Hgb (14.0-18.0) g/dL Hct (42-52) % MCV (80-100) fL MCH (25-34) pg MCHC (32-36) g/dL RDW Std Deviation (36.4-46.3) fL RDW Coeff of Vidal (11.5-14.5) % Plt Count (130-400) K/uL MPV (7.4-10.4) fL Immature Gran % (Auto) % Neut % (Auto) % Lymph % (Auto) % [place] % (Auto) % Eos % (Auto) % Baso % (Auto) % Neut # (Auto) (1.4-6.5) K/uL Lymph # (Auto) (1.2-3.4) K/uL [place] # (Auto) (0.11-0.59) K/uL Eos # (Auto) (0-0.5) K/uL Baso # (Auto) (0-0.2) K/uL Immature Gran # (Auto) (0.00-0.02) K/uL Sodium (136-145) mmol/L Potassium (3.5-5.1) mmol/L Chloride (98-107) mmol/L Carbon Dioxide (21-32) mmol/L Anion Gap (3-11) BUN (7-18) mg/dl Creatinine (0.6-1.4) mg/dl Est Cr Clr Drug Dosing Est GFR ( Amer) ml/min Est GFR (Non-Af Amer) ml/min BUN/Creatinine Ratio (10-20) Glucose (70-99) mg/dl POC Glucose 164 H (70-99) mg/dl Estimat Average Glucose Pending Hemoglobin A1c Pending Calcium (8.5-10.1) mg/dl Iron 100 (35-175) mcg/dl TIBC 260 (250-450) mcg/dl Transferrin 191 L (200-360) mg/dl Transferrin % Sat 37 (20-50) % Ferritin 72.5 (8-388) ng/ml Total Bilirubin (0.2-1) mg/dl AST (15-37) U/L ALT (12-78) U/L Alkaline Phosphatase (45-117) U/L Troponin I (0-0.045) ng/ml Total Protein (6.4-8.2) gm/dl Albumin (3.4-5.0) gm/dl Globulin (2.5-4.0) gm/dl Albumin/Globulin Ratio (0.9-2) Triglycerides (0-150) mg/dl Cholesterol (0-200) mg/dl LDL Cholesterol, Calc mg/dl VLDL Cholesterol, Calc mg/dl HDL Cholesterol mg/dl Cholesterol/HDL Ratio Nasal Screen MRSA (PCR) (Negative) COVID-19 Eval Order SARS-CoV-2 (PCR) (Negative) 02/23/21 02/23/21 02/23/21 Range/Units 11:40 11:40 09:34 WBC (4.8-10.8) K/uL RBC (4.7-6.1) M/uL Hgb (14.0-18.0) g/dL Hct (42-52) % MCV (80-100) fL MCH (25-34) pg MCHC (32-36) g/dL RDW Std Deviation (36.4-46.3) fL RDW Coeff of Vidal (11.5-14.5) % Plt Count (130-400) K/uL MPV (7.4-10.4) fL Immature Gran % (Auto) % Neut % (Auto) % Lymph % (Auto) % [place] % (Auto) % Eos % (Auto) % Baso % (Auto) % Neut # (Auto) (1.4-6.5) K/uL Lymph # (Auto) (1.2-3.4) K/uL [place] # (Auto) (0.11-0.59) K/uL Eos # (Auto) (0-0.5) K/uL Baso # (Auto) (0-0.2) K/uL Immature Gran # (Auto) (0.00-0.02) K/uL Sodium 138 (136-145) mmol/L Potassium 4.3 (3.5-5.1) mmol/L Chloride 106 (98-107) mmol/L Carbon Dioxide 28 (21-32) mmol/L Anion Gap 4.0 (3-11) BUN 38 H (7-18) mg/dl Creatinine 1.82 H (0.6-1.4) mg/dl Est Cr Clr Drug Dosing Not Reportable Est GFR ( Amer) 43.6 ml/min Est GFR (Non-Af Amer) 37.6 ml/min BUN/Creatinine Ratio 21.1 H (10-20) Glucose 145 H (70-99) mg/dl POC Glucose (70-99) mg/dl Estimat Average Glucose Hemoglobin A1c Calcium 8.5 (8.5-10.1) mg/dl Iron (35-175) mcg/dl TIBC (250-450) mcg/dl Transferrin (200-360) mg/dl Transferrin % Sat (20-50) % Ferritin (8-388) ng/ml Total Bilirubin 0.4 (0.2-1) mg/dl AST 30 (15-37) U/L ALT 30 (12-78) U/L Alkaline Phosphatase 56 (45-117) U/L Troponin I < 0.015 (0-0.045) ng/ml Total Protein 6.8 (6.4-8.2) gm/dl Albumin 3.3 L (3.4-5.0) gm/dl Globulin 3.5 (2.5-4.0) gm/dl Albumin/Globulin Ratio 0.9 (0.9-2) Triglycerides (0-150) mg/dl Cholesterol (0-200) mg/dl LDL Cholesterol, Calc mg/dl VLDL Cholesterol, Calc mg/dl HDL Cholesterol mg/dl Cholesterol/HDL Ratio Nasal Screen MRSA (PCR) (Negative) COVID-19 Eval Order Covid19 at [facility] SARS-CoV-2 (PCR) NEGATIVE (Negative) 02/23/21 Range/Units 09:34 WBC 6.16 (4.8-10.8) K/uL RBC 3.91 L (4.7-6.1) M/uL Hgb 11.8 L (14.0-18.0) g/dL Hct 35.0 L (42-52) % MCV 89.5 (80-100) fL MCH 30.2 (25-34) pg MCHC 33.7 (32-36) g/dL RDW Std Deviation 43.2 (36.4-46.3) fL RDW Coeff of Vidal 13.3 (11.5-14.5) % Plt Count 206 (130-400) K/uL MPV 11.0 H (7.4-10.4) fL Immature Gran % (Auto) 0.0 % Neut % (Auto) 47.9 % Lymph % (Auto) 35.9 % [place] % (Auto) 10.2 % Eos % (Auto) 5.5 % Baso % (Auto) 0.5 % Neut # (Auto) 2.95 (1.4-6.5) K/uL Lymph # (Auto) 2.21 (1.2-3.4) K/uL [place] # (Auto) 0.63 H (0.11-0.59) K/uL Eos # (Auto) 0.34 (0-0.5) K/uL Baso # (Auto) 0.03 (0-0.2) K/uL Immature Gran # (Auto) 0.00 (0.00-0.02) K/uL Sodium (136-145) mmol/L Potassium (3.5-5.1) mmol/L Chloride (98-107) mmol/L Carbon Dioxide (21-32) mmol/L Anion Gap (3-11) BUN (7-18) mg/dl Creatinine (0.6-1.4) mg/dl Est Cr Clr Drug Dosing Est GFR ( Amer) ml/min Est GFR (Non-Af Amer) ml/min BUN/Creatinine Ratio (10-20) Glucose (70-99) mg/dl POC Glucose (70-99) mg/dl Estimat Average Glucose Hemoglobin A1c Calcium (8.5-10.1) mg/dl Iron (35-175) mcg/dl TIBC (250-450) mcg/dl Transferrin (200-360) mg/dl Transferrin % Sat (20-50) % Ferritin (8-388) ng/ml Total Bilirubin (0.2-1) mg/dl AST (15-37) U/L ALT (12-78) U/L Alkaline Phosphatase (45-117) U/L Troponin I (0-0.045) ng/ml Total Protein (6.4-8.2) gm/dl Albumin (3.4-5.0) gm/dl Globulin (2.5-4.0) gm/dl Albumin/Globulin Ratio (0.9-2) Triglycerides (0-150) mg/dl Cholesterol (0-200) mg/dl LDL Cholesterol, Calc mg/dl VLDL Cholesterol, Calc mg/dl HDL Cholesterol mg/dl Cholesterol/HDL Ratio Nasal Screen MRSA (PCR) (Negative) COVID-19 Eval Order SARS-CoV-2 (PCR) (Negative) Medications Administered Current Inpatient Medications Acetaminophen (Acetaminophen 325 Mg Tab) 650 mg PO Q4H PRN PRN Reason: Pain or Fever Stop: 03/25/21 15:28 Al Hydrox/Mg Hydrox/Simethicone (Aluminum/Magnesium Susp 30 Ml Udc) 15 ml PO Q 4H PRN PRN Reason: Dyspepsia Stop: 03/25/21 15:28 Amlodipine Besylate (Amlodipine Besylate 5 Mg Tab) 5 mg PO QPM [facility] Stop: 03/26/21 20:59 Aspirin (Aspirin 325 Mg Ectab) 325 mg PO QAM REINA Stop: 03/26/21 08:59 Last Admin: 02/24/21 07:31 Dose: 325 mg Documented by: Atorvastatin Calcium (Atorvastatin 10 Mg Tab) 10 mg PO DAILY REINA Stop: 03/25/21 15:28 Last Admin: 02/24/21 07:32 Dose: 10 mg Documented by: Chlorthalidone (Chlorthalidone 25 Mg Tab) 25 mg PO DAILY REINA Stop: 03/25/21 15:28 Last Admin: 02/24/21 07:32 Dose: 25 mg Documented by: Dextrose (Dextrose 50% 50 Ml Syringe) 25 - 50 ml IV UD PRN; Protocol PRN Reason: Hypoglycemia Protocol Stop: 03/25/21 15:28 Docusate Sodium (Docusate Sodium 100 Mg Cap) 100 mg PO BID REINA Stop: 03/25/21 20:59 Last Admin: 02/24/21 07:33 Dose: 100 mg Documented by: Enoxaparin Sodium (Enoxaparin Inj 40 Mg/0.4 Ml Syr) 40 mg SQ QAM REINA Stop: 03/26/21 08:59 Last Admin: 02/24/21 07:33 Dose: 40 mg Documented by: Glucagon (Glucagon For Inj 1 Mg Vial) 1 mg SQ UD PRN; Protocol PRN Reason: Hypoglycemia Protocol Stop: 03/25/21 15:28 Glucose (Glucose 10 Tabs/Tube) 4 - 8 tabs PO UD PRN; Protocol PRN Reason: Hypoglycemia Protocol Stop: 03/25/21 15:28 Glucose (Glucose 40% Gel 15 Gm Tube) 15 - 30 gm PO UD PRN; Protocol PRN Reason: Hypoglycemia Protocol Stop: 03/25/21 15:28 Hydroxychloroquine Sulfate (Hydroxychloroquine Sulfate 200 Mg Tab) 200 mg PO DAILY [facility] Stop: 03/25/21 15:28 Last Admin: 02/24/21 07:32 Dose: 200 mg Documented by: Insulin Aspart (Insulin Aspart 100 Units/Ml 3 Ml Pen) 0 units SC ACHS [facility] Stop: 03/25/21 16:29 Last Admin: 02/23/21 22:33 Dose: Not Given Documented by: Insulin Glargine (Insulin Glargine Solostar 100 Units/Ml 3 Ml Pen) 14 units SC BID [facility] Stop: 03/25/21 20:59 Last Admin: 02/23/21 22:33 Dose: 14 units Documented by: Labetalol HCl (Labetalol Hcl 100 Mg Tab) 50 mg PO QAM [facility] Stop: 03/26/21 08:59 Labetalol HCl (Labetalol Hcl 100 Mg Tab) 100 mg PO DAILY@1500 [facility] Stop: 03/26/21 14:59 Lisinopril (Lisinopril 40 Mg Tab) 40 mg PO QPM [facility] Stop: 03/26/21 20:59 Magnesium Hydroxide (Magnesium Hydroxide Susp 30 Ml Udc) 30 ml PO Q12H PRN PRN Reason: Constipation Stop: 03/25/21 15:28 Metoprolol Tartrate (Metoprolol Tartrate 1 Mg/Ml Vial) 5 mg IV Q4 PRN PRN Reason: HTN Stop: 03/26/21 00:00 Miscellaneous (Carbohydrates For Hypoglycemia ) 15 - 30 gm PO UD PRN PRN Reason: Hypoglycemia Protocol Stop: 03/25/21 15:28 Nitroglycerin (Nitroglycerin Sl 0.4 Mg/Tab Tab) 0.4 mg SL UD PRN PRN Reason: Chest Pain Stop: 03/25/21 15:28 Nortriptyline HCl (Nortriptyline Hcl 25 Mg Cap) 25 mg PO BID [facility] Stop: 03/25/21 20:59 Last Admin: 02/24/21 07:33 Dose: 25 mg Documented by: Ondansetron HCl (Ondansetron Inj 2 Mg/Ml 2 Ml Vial) 4 mg IV Q6H PRN PRN Reason: Nausea Stop: 03/25/21 15:28 Polyethylene Glycol (Polyethylene (Miralax) 17 Gm Pack) 17 gm PO DAILY PRN PRN Reason: Constipation Stop: 03/25/21 15:28 Resident Activity Tracking Resident Involvement: Resident Care Provided Care Provided: Adult Hospital Medicine (1) HTN (hypertension) Hypertension type: unspecified Qualified Code(s): I10 - Essential (primary) hypertension
[2021-02-24] MEDS: INSULIN GLARGINE SOLOSTAR 100 UNITS/ML 3 ML PEN SC SCH ×2 (08:52→21:55)
[2021-02-24] MEDS: LABETALOL HCL 100 MG TAB PO SCH ×2 (08:52→15:30)
[2021-02-24] MEDS: INSULIN ASPART 100 UNITS/ML 3 ML PEN SC SCH ×4 (08:53→21:53)
[2021-02-24 08:54] LABS: Estimated Average Glucose 255 mg/dl; Hemoglobin A1C 10.5 % (4.5-5.6)
--- NOTE | 2021-02-24 08:57 | Electrocardiogram Report ---
Test Reason : Blood Pressure : / mmHG Vent. Rate : 064 BPM Atrial Rate : 064 BPM P-R Int : 210 ms QRS Dur : 092 ms QT Int : 442 ms P-R-T Axes : 054 020 087 degrees QTc Int : 455 ms Sinus rhythm with 1st degree A-V block Diffuse Nonspecific T wave abnormality Abnormal ECG When compared with ECG of 23-FEB-2021 09:35, No significant change was found Confirmed by Moi Eldridge ([id number]) on 02/24/2021 8:57:25 AM Referred By: [facility] Confirmed By:Moi Eldridge
[2021-02-24] MEDS ORDERED: lisinopril 40 MG TAB PO SCH (09:00)
[2021-02-24] MEDS ORDERED: ASPIRIN 81 MG ECTAB PO SCH (09:00)
--- NOTE | 2021-02-24 10:27 | Cardiology Progress Note ---
Date of Service February 24, 2021 Assessment & Plan (1) Orthostatic hypotension: (2) Recurrent syncope: (3) HTN (hypertension): (4) Diabetes: Although high end labetalol dose (in addition to other vasoactive medications) transiently achieved normotensive BP, this also underscored the dilemma in that a normotensive seated BP will almost certainly result in a hypotensive standing BP. As such, need to allow permissive hypertension, likely systolic blood pressure in the 160-180 mmHg range (perhaps higher) to avoid severe orthostatic hypotension with resultant syncope. Given alpha blocking properties of labetalol, it would have more propensity to orthostasis than the lisinopril or amlodipine. Therefore, recommending tapering this first. Certainly, chlorthalidone could contribute to orthostatic tendencies as well, but refractory hypertension can be difficult to manage without any diuretic. Therefore, could try every other day chlorthalidone to monitor relative contribution to controlling hypertension versus contribution to orthostasis. Would attempt to review [facility] records to see if clonidine might be reconsidered, since this is the ideal drug to address labile hypertension without contributing to hypotension. Since there are no listed allergies or adverse reactions to clonidine, would recommend use of of at least PRN clonidine for abrupt spikes in blood pressure (for example, clonidine 0.1 mg every 8 hours as needed systolic blood pressure greater than 200 mmHg). Will follow along while he is an inpatient, but as noted adjusting his medications will be a longer term project which will require regular monitoring of orthostatic BP and needs to be guided by the principal that some degree of permissive hypertension is necessary to avoid recurrent syncope. Admission and Anticipated Discharge Date Admission Date: February 23, 2021 Subjective Patient was comfortable this morning with no complaints at rest. He denies chest pain, dyspnea, subjective palpitations, or lightheadedness (although he had not been out of bed). Rhythm was sinus in the 60s overnight. BP was markedly hypertensive yesterday, normotensive last evening and this morning. A test of orthostatics this morning by showed initial seated BP 118/58 mmHg, upon standing his BP dropped to 68/40 mmHg and he noted lightheadedness after 5 to 10 seconds. Physical Exam Physical Exam: No distress. Orthostatic BP as noted in HPI. Pulse 64 bpm and regular without ectopy. Skin: no ecchymoses or generalized lesions. HEENT: unremarkable. Neck: Jugular venous pulse at the clavicle at 90 degrees, no carotid bruits. Lungs: clear. Cardiac: regular rhythm, normal S1 and S2, no murmur or gallop. Abdomen: benign. Extremities: no edema, pulses intact. Neurologic: normal affect and conversation, grossly nonfocal. Results & Data ([facility]) Vital Signs (Past 12 Hours) Vital Signs Temp Pulse Resp BP BP Pulse Ox Pulse Ox 02/24/21 07:00 98.4 F 66 16 163/85 H 99 02/24/21 04:05 98.2 F 66 18 136/77 99 02/24/21 00:20 98 02/23/21 22:49 98.6 F 67 18 128/77 98 Laboratory Results Normal white count and platelet count, hemoglobin stable at 11.9. Normal electrolytes, BUN 36, creatinine 1.63. (38 and 1.82 yesterday) Diagnostic Findings ECG showed sinus rhythm at 64 bpm with first-degree AV block and diffuse nonspecific T wave abnormality. No change overnight. PG Care Time/CCT Total # of Minutes Spent Total Time Spent with Patient: Total time spent is greater than 50% in coordination of care (as documented) at patient's floor/unit and/or counseling patient: Coding Level of Care Code 09556 Subseq Hosp Care Lvl 3 Diagnoses Orthostatic hypotension I95.1 Recurrent syncope R55 HTN (hypertension) I10 Hypertension type: unspecified Diabetes E11.9 (1) HTN (hypertension) Hypertension type: unspecified Qualified Code(s): I10 - Essential (primary) hypertension
[2021-02-24] MEDS ORDERED: cloNIDine HCL 0.1 MG TAB PO PRN (11:32)
[2021-02-24] MEDS ORDERED: PHARMACY GLYCEMIC MGMT CONSULT PRN (11:40)
[2021-02-24] MEDS ORDERED: INSULIN HUMAN REGULAR PER UNIT 9 UNITS in SYRINGE 8.91 ML IV ONE (12:00)
[2021-02-24] MEDS ORDERED: INSULIN GLARGINE SOLOSTAR 100 UNITS/ML 3 ML PEN SC ONE (12:00)
[2021-02-24] MEDS ORDERED: LABETALOL HCL 100 MG TAB PO SCH (12:00)
--- NOTE | 2021-02-24 12:52 | Pharmacy Report ---
Pharmacy Glycemic Short Note 2 - Date of Service February 24, 2021 - Glycemic Short BSG Results (Last 24 hours): 02/23/21 02/23/21 02/24/21 15:01 20:16 06:19 Glucose 251 H POC Glucose 164 H 145 H 02/24/21 02/24/21 02/24/21 08:03 11:26 11:28 Glucose POC Glucose 210 H 320 H* 303 H* OUTPATIENT ANTIDIABETIC REGIMEN: * Lantus 24 units SC at 0700, 18 units at 1630 * Novolin R 6 units SC BID * Metformin 500 mg PO BIDM * HbA1c: 10.5% (02/23/21) ASSESSMENT: * FS is a 65 year old male admitted on 02/23/21 for evaluation of recurrent syncopal episode * BSGs yesterday of 164 and 145 mg/dL * Patient received 21 units of insulin yesterday while in the hospital (unsure if patient received insulin prior to admission) * Fasting BSG of 210 mg/dL (possible missed Lantus dose prior to admission on 02/23) * Pharmacy consulted for glycemic management on 02/24 for BSG of 320 mg/dL * Current orders include Lantus 14 units SC BID and Novolog with correction factor of 20 and carb ratio of 7 * Will give one-time IV insulin bolus, additional Lantus to equal full weight-based stress of 2, and tighten carb ratio * Home regimen is basal heavy, so will attempt to achieve more balanced split between basal/bolus insulin while inpatient PLAN FOR INPATIENT GLYCEMIC CONTROL: * Hold outpatient oral diabetes medications * Basal insulin * Lantus 14 units given this morning, will give additional 16 units to equal full-weight based stress of 2 dosing * Bolus insulin * NovoLog per scale ACHS or Q6hrs while NPO * Goal Range: Low 110 mg/dL - High 140 mg/dL * Correction Factor: 20 mg/dL/unit * Nutritional / Prandial insulin per carb ratio of 1 unit per 6 grams CHO consumed PLAN FOR DISCHARGE: * HbA1c of 10.5% suggests poor outpatient glycemic control * Regimen will likely require dose adjustment * Will follow inpatient insulin needs and suggest changes as appropriate
--- NOTE | 2021-02-24 12:55 | XCELERA ---
[id number]
[2021-02-24] MEDS: lisinopril 40 MG TAB PO SCH (21:51)
[2021-02-24] MEDS: amLODIPine BESYLATE 5 MG TAB PO SCH (21:51)
[2021-02-25] MEDS: INSULIN ASPART 100 UNITS/ML 3 ML PEN SC SCH ×7 (00:06→20:54)
[2021-02-25 07:37] LABS: Basophils # (auto) 0.01 K/uL (0-0.2); Basophils % (auto) 0.2 %; Eosinophils # (auto) 0.17 K/uL (0-0.5); Eosinophils % (auto) 2.6 %; Hematocrit (blood only) 40.2 % (42-52); Hemoglobin 13.8 g/dL (14.0-18.0); Immature Granulocytes # (auto) 0.01 K/uL (0.00-0.02); Immature Granulocytes % (auto) 0.2 %; Lymphocytes % (auto) 21.8 %; Mean Corpuscular Hemoglobin 30.2 pg (25-34); Mean Corpuscular Hgb Conc 34.3 g/dL (32-36); Mean Platelet Volume 11.1 fL (7.4-10.4); Monocytes # (auto) 0.46 K/uL (0.11-0.59); Monocytes % (auto) 7.2 %; Neutrophils # (auto) 4.37 K/uL (1.4-6.5); Platelet Count 212 K/uL (130-400); RDW Standard Deviation 41.6 fL (36.4-46.3); Red Blood Count 4.57 M/uL (4.7-6.1); White Blood Count 6.42 K/uL (4.8-10.8)
[2021-02-25 08:25] LABS: Albumin Globulin Ratio 0.8 (0.9-2); Albumin Level 3.7 gm/dl (3.4-5.0); BUN Creatinine Ratio 23.4 (10-20); Bilirubin,Total 0.7 mg/dl (0.2-1); Creatinine Clr Calc Pharmacy 65.3 ml/min; Est GFR (African American) 74.3 ml/min; Est GFR (Non-African American) 64.1 ml/min; Globulin 4.4 gm/dl (2.5-4.0); Potassium 4.1 mmol/L (3.5-5.1); Total Protein 8.1 gm/dl (6.4-8.2)
[2021-02-25] MEDS: INSULIN GLARGINE SOLOSTAR 100 UNITS/ML 3 ML PEN SC SCH (08:52)
[2021-02-25] MEDS: ENOXAPARIN INJ 40 MG/0.4 ML SYR SQ SCH (08:52)
[2021-02-25] MEDS: DOCUSATE SODIUM 100 MG CAP PO SCH ×2 (08:53→20:51)
[2021-02-25] MEDS: NORTRIPTYLINE HCL 25 MG CAP PO SCH ×2 (08:53→20:52)
[2021-02-25] MEDS: ATORVASTATIN 10 MG TAB PO SCH (08:53)
[2021-02-25] MEDS: HYDROXYCHLOROQUINE SULFATE 200 MG TAB PO SCH (08:53)
[2021-02-25] MEDS: ASPIRIN 325 MG ECTAB PO SCH (08:53)
[2021-02-25] MEDS: LABETALOL HCL 100 MG TAB PO SCH ×2 (08:54→15:56)
--- NOTE | 2021-02-25 10:29 | Cardiology Progress Note ---
Date of Service February 25, 2021 Assessment & Plan (1) Orthostatic hypotension: (2) Recurrent syncope: (3) HTN (hypertension): (4) Diabetes: Patient asymptomatic with appropriate blood pressure range for him (160- 180 mmHg) to avoid standing orthostatic hypotension. Would attempt to ambulate to see if he remains asymptomatic. Apparently clonidine was taken off the [facility] formulary, perhaps this is why he is not on it as a mainstay medication. In his particular case, I think that continuing clonidine (at least on a PRN basis) would be very helpful, if it can be arranged at [facility]. Monitor blood pressure variability and symptoms on every other day chlorthalidone to assess optimal dosing (unlike other vasoactive medications, even other day dosing could be beneficial by intermittently volume unloading). Continue lisinopril and amlodipine. Further blood pressure monitoring and medication adjustment likely could be achieved at the [facility]. No new recommendations at this time. Will sign off, please contact if clinical status changes. Admission and Anticipated Discharge Date Admission Date: February 23, 2021 Subjective Patient was comfortable this morning with no complaints at rest. He denies chest pain, dyspnea, subjective palpitations, or lightheadedness (although he had not been out of bed). Rhythm was sinus in the 60s overnight. BP was only mild to moderately hypertensive over the past 24 hours. Orthostatics not tested today. Physical Exam Physical Exam: No distress. BP 156/94 mmHg Pulse 66 bpm and regular without ectopy. Skin: no ecchymoses or generalized lesions. HEENT: unremarkable. Neck: Jugular venous pulse at the clavicle at 90 degrees, no carotid bruits. Lungs: clear. Cardiac: regular rhythm, normal S1 and S2, no murmur or gallop. Abdomen: benign. Extremities: no edema, pulses intact. Neurologic: normal affect and conversation, grossly nonfocal. Results & Data ([facility]) Vital Signs (Past 12 Hours) Vital Signs Temp Pulse Pulse Resp BP BP Pulse Ox 02/25/21 10:09 67 02/25/21 07:32 97.3 F L 73 16 156/94 H 97 02/25/21 07:15 02/25/21 03:12 97.5 F L 67 18 177/89 H 99 02/25/21 00:00 67 02/24/21 23:10 97.9 F 64 18 156/89 H 95 Pulse Ox 02/25/21 10:09 02/25/21 07:32 02/25/21 07:15 96 02/25/21 03:12 02/25/21 00:00 02/24/21 23:10 Laboratory Results CBC unremarkable. Sodium 132, potassium 4.1, BUN 27, creatinine 1.17 (improved from 1.63). Diagnostic Findings Echocardiogram yesterday showed normal systolic function (EF 55 to 60%) with only mild LVH and normal wall motion. Grade 1 diastolic dysfunction. Normal RV pressure. No significant valvular disease. Normal CVP. PG Care Time/CCT Total # of Minutes Spent Total Time Spent with Patient: Total time spent is greater than 50% in coordination of care (as documented) at patient's floor/unit and/or counseling patient: Coding Level of Care Code 19417 Subseq Hosp Care Lvl 3 Diagnoses Orthostatic hypotension I95.1 Recurrent syncope R55 HTN (hypertension) I10 Hypertension type: unspecified Diabetes E11.9 (1) HTN (hypertension) Hypertension type: unspecified Qualified Code(s): I10 - Essential (primary) hypertension
--- NOTE | 2021-02-25 11:31 | Pharmacy Report ---
Pharmacy Glycemic Short Note 2 - Date of Service February 25, 2021 - Glycemic Short BSG Results (Last 24 hours): 02/24/21 02/24/21 02/24/21 11:26 11:28 16:15 Glucose POC Glucose 320 H* 303 H* 146 H 02/24/21 02/25/21 02/25/21 20:00 00:00 04:12 Glucose POC Glucose 187 H 122 H 34 L* 02/25/21 02/25/21 02/25/21 04:14 04:35 07:14 Glucose 219 H POC Glucose 29 L* 155 H 02/25/21 07:59 Glucose POC Glucose 235 H OUTPATIENT ANTIDIABETIC REGIMEN: * Lantus 24 units SC at 0700, 18 units at 1630 * Novolin R 6 units SC BID * Metformin 500 mg PO BIDM * HbA1c: 10.5% (02/23/21) ASSESSMENT: 02/25 * Pt has received 88 units of SQ insulin + 9 units of IV insulin over the past 24hrs * 45 units of basal with Lantus * 43 units of bolus with NovoLog * BSGs [id number]*-235 mg/dl * Pt with LOW BSG overnight secondary to too much basal insulin +/- NovoLog correction at HS * Outpatient regimen is 54 units/day of insulin but 42 units of this is basal insulin. Regimen is heavily weighted towards basal insulin indicating that his basal dosing is covering some of his prandial needs. * Will decrease his TDD by 20% d/t HYPO and re-distribute the insulin to a more 50% basal:50% prandial split 02/24 * FS is a 65 year old male admitted on 02/23/21 for evaluation of recurrent syncopal episode * BSGs yesterday of 164 and 145 mg/dL * Patient received 21 units of insulin yesterday while in the hospital (unsure if patient received insulin prior to admission) * Fasting BSG of 210 mg/dL (possible missed Lantus dose prior to admission on 02/23) * Pharmacy consulted for glycemic management on 02/24 for BSG of 320 mg/dL * Current orders include Lantus 14 units SC BID and Novolog with correction factor of 20 and carb ratio of 7 * Will give one-time IV insulin bolus, additional Lantus to equal full weight-based stress of 2, and tighten carb ratio * Home regimen is basal heavy, so will attempt to achieve more balanced split between basal/bolus insulin while inpatient PLAN FOR INPATIENT GLYCEMIC CONTROL: * Hold outpatient oral diabetes medications * Basal insulin: 36 units SQ daily split BID * Since Pt with LOW BSG this AM - will give 15 units this AM + 18 units HS for a total of 36 units today; then start 18 units SQ BID 02/26/21 AM * Bolus insulin: loosen cf/cr as likely too much basal insulin on board today * NovoLog per scale ACHS or Q6hrs while NPO * Goal Range: Low 110 mg/dL - High 140 mg/dL * Correction Factor: 25 mg/dL/unit * Nutritional / Prandial insulin per carb ratio of 1 unit per 7 grams CHO consumed PLAN FOR DISCHARGE: * HbA1c of 10.5% suggests poor outpatient glycemic control * Regimen will likely require dose adjustment * Will follow inpatient insulin needs and suggest changes as appropriate * May consider titrating metformin to max dosing to help minimize insulin * Continue to titrate metformin dosing upwards as recommended. Dosage increases should be made in increments of 500 mg weekly, up to 2,000 mg/day PO, given in divided doses. Doses above 2000 mg/day may be better tolerated if divided and given 3 times per day with meals. Max: 2,550 mg/day PO, in divided doses * B12 supplementation may be necessary with usp metformin
[2021-02-25] MEDS ORDERED: INSULIN HUMAN REGULAR PER UNIT 7 UNITS in SYRINGE 6.93 ML IV ONE (12:00)
--- NOTE | 2021-02-25 12:33 | Electrocardiogram Report ---
Test Reason : Blood Pressure : / mmHG Vent. Rate : 079 BPM Atrial Rate : 079 BPM P-R Int : 202 ms QRS Dur : 100 ms QT Int : 386 ms P-R-T Axes : 061 019 058 degrees QTc Int : 442 ms Normal sinus rhythm Normal ECG When compared with ECG of 24-FEB-2021 07:40, Diffuse Nonspecific T wave abnormality no longer present Confirmed by Moi Eldridge ([id number]) on 02/25/2021 12:32:45 PM Referred By: [facility] Confirmed By:Moi Eldridge
[2021-02-25] MEDS ORDERED: INSULIN ASPART 100 UNITS/ML 3 ML PEN SC ONE ×2 (15:00→15:15)
--- NOTE | 2021-02-25 18:37 | Hospitalist Progress Note ---
Date of Service February 25, 2021 Assessment & Plan (1) Recurrent syncope: 65 yo M with hx HLD, DM2, HTN, CVA brought to ER for dizziness and syncopal episode, admitted for recurrent syncope and abnormal EKG. Recurrent Syncope Head CT in ED negative, labs normal. Orthostatic vitals demonstrating orthostatic hypotension with a drop from 1 50-100 between lying and standing without appropriate heart rate elevation. Evidence of dehydration by elevated BUN/Cr ratio, could be contributing to syncopal episodes. Given the increasing frequency of this episode patient was admitted for further evaluation and management and cardiology consultation. Cardiology recommending modification to antihypertensive regimen including slow tapering of labetalol, and changing patient's amlodipine and lisinopril to evening dosing. Patient made significant improvement overnight after medication changes, reported minimal symptoms with his episodes of orthostatic hypotension. Assuming he continues to do well on his current medication regimen plan to DC tomorrow -electrolytes WNL -Cardiology consulted -Taper labetalol 50 every morning, 100 q. afternoon. -Transition lisinopril and amlodipine to evening doses -At present no need for arrhythmia work-up -Monitor overnight for orthostatic symptoms If symptom-free plan to discharge. Abnormal EKG Demonstrating sinus with first-degree AV block and nonspecific T wave abnormality, cardiology was consulted see above. Follow-up TTE -EKG and nitro for chest pain Anemia Hg 11.8 today, 12 last month, 15 in 03/2020.MCV 89. iron studies ordered. Suspect secondary to anemia of chronic disease -Hemoglobin stable 13.8 APRIL on CKD3 baseline GFR appears to be 49-57; CKD3A -Daily BMP -cr:1.17 -Avoid nephrotoxins DM2 with neuropathy home regimen of 24 unit glargine AM and 18 unit Daily? as well as regular insulin 6u BID + metformin. Given hx high and low bsgs at half-way, placed on 14 unit lantus BID with SSI for daytime coverage to estimate required insulin coverage - hold metformin/PO diabetic medications - A1C 10.5 - Continue nortriptyline 25 mg p.o. twice daily HTN Complex antihypertensive regimen, see cardiology consultation and documentation above. Plan is to transition amlodipine and lisinopril to evening dosing, and slowly decrease labetalol, with as needed clonidine as needed HLD w/ hx CVA - cont statin, ASA 325 - Lipid panel pending - Continue atorvastatin 40 mg Ulcertive Colitis Diagnosed a number of years ago, no recent flareups. Could be source of present anemia either acute bleed or secondary to anemia of chronic disease. Will monitor hemoglobin and investigate further as warranted. In the interim continue hydroxychloroquine 200 mg p.o. daily -Hydroxychloroquine 200 mg p.o. daily Rheumatoid arthritis Patient with history of rheumatoid arthritis, treated with weekly Enbrel injections, has been tolerating well. Receives Enbrel on Wednesdays. -Enbrel q. weekly DVT ppx: lovenox FEN/GI: heart health, DM2 Code Status: Full Code Dispo: Med/surg with tele. (2) Anemia: (3) Hyperlipidemia: (4) Diabetes: (5) HTN (hypertension): (6) Surgical history unknown: (7) CVA (cerebral infarction): (8) Abnormal EKG: Admission and Anticipated Discharge Date Admission Date: February 23, 2021 Supervising Physician Co-Signing Physician Notes Resident Physician Supervision Note: I independently interviewed and examined the patient and verified the hinds history and physical, reviewed labs and image studies and agree with resident Dr. Nic Ahuja findings and care plan. Subjective Patient lying in bed this morning in no acute distress. Patient reports decreased severity of symptoms with his episodes of orthostatic hypotension status post medication changes. Patient is voiding, stooling, tolerating his diet, sleeping well. Acute concerns relate to length of hospitalization stay all questions were answered. Physical Exam Physical Exam: General: No acute distress HEENT: Normocephalic atraumatic Neck: No significant lymphadenopathy, trachea midline, normal to visual inspection Cardiac: Regular rate and rhythm, normal S1, normal S2, I did not appreciated any significant murmurs rubs or gallops, I did not appreciate any significant pedal edema, No calf tenderness, capillary refill is less than 3 seconds Respiratory: Clear to auscultation bilaterally with symmetrical chest rise, I did not appreciate any significant wheezes, rales, rhonchi, no increased work of breathing GI: Normal bowel sounds, soft, nontender in all 4 quadrants, nondistended MSK: No sensory or motor changes, moves all extremities without issue, ex tremities are warm and well-perfused Skin: [place], clean, dry, intact. Neuro: Alert and oriented x4 Psych: Calm, cooperative, logical thought process Results & Data Results & Data ([facility]) Vital Signs (Past 12 Hours) Vital Signs Temp Pulse Pulse Resp BP BP Pulse Ox 02/25/21 14:49 36.3 C L 77 18 126/84 97 02/25/21 11:16 37 C 75 18 163/95 H 98 02/25/21 10:09 67 02/25/21 07:32 36.3 C L 73 16 156/94 H 97 02/25/21 07:15 Pulse Ox 02/25/21 14:49 02/25/21 11:16 02/25/21 10:09 02/25/21 07:32 02/25/21 07:15 96 Laboratory Results 02/25/21 02/25/21 02/25/21 Range/Units 16:19 15:15 14:01 WBC (4.8-10.8) K/uL RBC (4.7-6.1) M/uL Hgb (14.0-18.0) g/dL Hct (42-52) % MCV (80-100) fL MCH (25-34) pg MCHC (32-36) g/dL RDW Std Deviation (36.4-46.3) fL RDW Coeff of Vidal (11.5-14.5) % Plt Count (130-400) K/uL MPV (7.4-10.4) fL Immature Gran % (Auto) % Neut % (Auto) % Lymph % (Auto) % [place] % (Auto) % Eos % (Auto) % Baso % (Auto) % Neut # (Auto) (1.4-6.5) K/uL Lymph # (Auto) (1.2-3.4) K/uL [place] # (Auto) (0.11-0.59) K/uL Eos # (Auto) (0-0.5) K/uL Baso # (Auto) (0-0.2) K/uL Immature Gran # (Auto) (0.00-0.02) K/uL Sodium (136-145) mmol/L Potassium (3.5-5.1) mmol/L Chloride (98-107) mmol/L Carbon Dioxide (21-32) mmol/L Anion Gap (3-11) BUN (7-18) mg/dl Creatinine (0.6-1.4) mg/dl Est Cr Clr Drug Dosing ml/min Est GFR ( Amer) ml/min Est GFR (Non-Af Amer) ml/min BUN/Creatinine Ratio (10-20) Glucose (70-99) mg/dl POC Glucose 211 H 291 H 359 H* (70-99) mg/dl Calcium (8.5-10.1) mg/dl Total Bilirubin (0.2-1) mg/dl AST (15-37) U/L ALT (12-78) U/L Alkaline Phosphatase (45-117) U/L Total Protein (6.4-8.2) gm/dl Albumin (3.4-5.0) gm/dl Globulin (2.5-4.0) gm/dl Albumin/Globulin Ratio (0.9-2) 02/25/21 02/25/21 02/25/21 Range/Units 11:37 11:35 07:59 WBC (4.8-10.8) K/uL RBC (4.7-6.1) M/uL Hgb (14.0-18.0) g/dL Hct (42-52) % MCV (80-100) fL MCH (25-34) pg MCHC (32-36) g/dL RDW Std Deviation (36.4-46.3) fL RDW Coeff of Vidal (11.5-14.5) % Plt Count (130-400) K/uL MPV (7.4-10.4) fL Immature Gran % (Auto) % Neut % (Auto) % Lymph % (Auto) % [place] % (Auto) % Eos % (Auto) % Baso % (Auto) % Neut # (Auto) (1.4-6.5) K/uL Lymph # (Auto) (1.2-3.4) K/uL [place] # (Auto) (0.11-0.59) K/uL Eos # (Auto) (0-0.5) K/uL Baso # (Auto) (0-0.2) K/uL Immature Gran # (Auto) (0.00-0.02) K/uL Sodium (136-145) mmol/L Potassium (3.5-5.1) mmol/L Chloride (98-107) mmol/L Carbon Dioxide (21-32) mmol/L Anion Gap (3-11) BUN (7-18) mg/dl Creatinine (0.6-1.4) mg/dl Est Cr Clr Drug Dosing ml/min Est GFR ( Amer) ml/min Est GFR (Non-Af Amer) ml/min BUN/Creatinine Ratio (10-20) Glucose (70-99) mg/dl POC Glucose 467 H* 449 H* 235 H (70-99) mg/dl Calcium (8.5-10.1) mg/dl Total Bilirubin (0.2-1) mg/dl AST (15-37) U/L ALT (12-78) U/L Alkaline Phosphatase (45-117) U/L Total Protein (6.4-8.2) gm/dl Albumin (3.4-5.0) gm/dl Globulin (2.5-4.0) gm/dl Albumin/Globulin Ratio (0.9-2) 02/25/21 02/25/21 02/25/21 Range/Units 07:14 07:14 04:35 WBC 6.42 (4.8-10.8) K/uL RBC 4.57 L (4.7-6.1) M/uL Hgb 13.8 L (14.0-18.0) g/dL Hct 40.2 L (42-52) % MCV 88.0 (80-100) fL MCH 30.2 (25-34) pg MCHC 34.3 (32-36) g/dL RDW Std Deviation 41.6 (36.4-46.3) fL RDW Coeff of Vidal 13.0 (11.5-14.5) % Plt Count 212 (130-400) K/uL MPV 11.1 H (7.4-10.4) fL Immature Gran % (Auto) 0.2 % Neut % (Auto) 68.0 % Lymph % (Auto) 21.8 % [place] % (Auto) 7.2 % Eos % (Auto) 2.6 % Baso % (Auto) 0.2 % Neut # (Auto) 4.37 (1.4-6.5) K/uL Lymph # (Auto) 1.40 (1.2-3.4) K/uL [place] # (Auto) 0.46 (0.11-0.59) K/uL Eos # (Auto) 0.17 (0-0.5) K/uL Baso # (Auto) 0.01 (0-0.2) K/uL Immature Gran # (Auto) 0.01 (0.00-0.02) K/uL Sodium 132 L (136-145) mmol/L Potassium 4.1 D (3.5-5.1) mmol/L Chloride 101 (98-107) mmol/L Carbon Dioxide 26 (21-32) mmol/L Anion Gap 6.0 (3-11) BUN 27 H (7-18) mg/dl Creatinine 1.17 D (0.6-1.4) mg/dl Est Cr Clr Drug Dosing 65.3 ml/min Est GFR ( Amer) 74.3 ml/min Est GFR (Non-Af Amer) 64.1 ml/min BUN/Creatinine Ratio 23.4 H (10-20) Glucose 219 H (70-99) mg/dl POC Glucose 155 H (70-99) mg/dl Calcium 9.0 (8.5-10.1) mg/dl Total Bilirubin 0.7 (0.2-1) mg/dl AST 28 (15-37) U/L ALT 29 (12-78) U/L Alkaline Phosphatase 59 (45-117) U/L Total Protein 8.1 D (6.4-8.2) gm/dl Albumin 3.7 (3.4-5.0) gm/dl Globulin 4.4 H (2.5-4.0) gm/dl Albumin/Globulin Ratio 0.8 L (0.9-2) 02/25/21 02/25/21 02/25/21 Range/Units 04:14 04:12 00:00 WBC (4.8-10.8) K/uL RBC (4.7-6.1) M/uL Hgb (14.0-18.0) g/dL Hct (42-52) % MCV (80-100) fL MCH (25-34) pg MCHC (32-36) g/dL RDW Std Deviation (36.4-46.3) fL RDW Coeff of Vidal (11.5-14.5) % Plt Count (130-400) K/uL MPV (7.4-10.4) fL Immature Gran % (Auto) % Neut % (Auto) % Lymph % (Auto) % [place] % (Auto) % Eos % (Auto) % Baso % (Auto) % Neut # (Auto) (1.4-6.5) K/uL Lymph # (Auto) (1.2-3.4) K/uL [place] # (Auto) (0.11-0.59) K/uL Eos # (Auto) (0-0.5) K/uL Baso # (Auto) (0-0.2) K/uL Immature Gran # (Auto) (0.00-0.02) K/uL Sodium (136-145) mmol/L Potassium (3.5-5.1) mmol/L Chloride (98-107) mmol/L Carbon Dioxide (21-32) mmol/L Anion Gap (3-11) BUN (7-18) mg/dl Creatinine (0.6-1.4) mg/dl Est Cr Clr Drug Dosing ml/min Est GFR ( Amer) ml/min Est GFR (Non-Af Amer) ml/min BUN/Creatinine Ratio (10-20) Glucose (70-99) mg/dl POC Glucose 29 L* 34 L* 122 H (70-99) mg/dl Calcium (8.5-10.1) mg/dl Total Bilirubin (0.2-1) mg/dl AST (15-37) U/L ALT (12-78) U/L Alkaline Phosphatase (45-117) U/L Total Protein (6.4-8.2) gm/dl Albumin (3.4-5.0) gm/dl Globulin (2.5-4.0) gm/dl Albumin/Globulin Ratio (0.9-2) /11/15 Range/Units 20:00 WBC (4.8-10.8) K/uL RBC (4.7-6.1) M/uL Hgb (14.0-18.0) g/dL Hct (42-52) % MCV (80-100) fL MCH (25-34) pg MCHC (32-36) g/dL RDW Std Deviation (36.4-46.3) fL RDW Coeff of Vidal (11.5-14.5) % Plt Count (130-400) K/uL MPV (7.4-10.4) fL Immature Gran % (Auto) % Neut % (Auto) % Lymph % (Auto) % [place] % (Auto) % Eos % (Auto) % Baso % (Auto) % Neut # (Auto) (1.4-6.5) K/uL Lymph # (Auto) (1.2-3.4) K/uL [place] # (Auto) (0.11-0.59) K/uL Eos # (Auto) (0-0.5) K/uL Baso # (Auto) (0-0.2) K/uL Immature Gran # (Auto) (0.00-0.02) K/uL Sodium (136-145) mmol/L Potassium (3.5-5.1) mmol/L Chloride (98-107) mmol/L Carbon Dioxide (21-32) mmol/L Anion Gap (3-11) BUN (7-18) mg/dl Creatinine (0.6-1.4) mg/dl Est Cr Clr Drug Dosing ml/min Est GFR ( Amer) ml/min Est GFR (Non-Af Amer) ml/min BUN/Creatinine Ratio (10-20) Glucose (70-99) mg/dl POC Glucose 187 H (70-99) mg/dl Calcium (8.5-10.1) mg/dl Total Bilirubin (0.2-1) mg/dl AST (15-37) U/L ALT (12-78) U/L Alkaline Phosphatase (45-117) U/L Total Protein (6.4-8.2) gm/dl Albumin (3.4-5.0) gm/dl Globulin (2.5-4.0) gm/dl Albumin/Globulin Ratio (0.9-2) Medications Administered Current Inpatient Medications Acetaminophen (Acetaminophen 325 Mg Tab) 650 mg PO Q4H PRN PRN Reason: Pain or Fever Stop: 03/25/21 15:28 Al Hydrox/Mg Hydrox/Simethicone (Aluminum/Magnesium Susp 30 Ml Udc) 15 ml PO Q4H PRN PRN Reason: Dyspepsia Stop: 03/25/21 15:28 Amlodipine Besylate (Amlodipine Besylate 5 Mg Tab) 5 mg PO QPM [facility] Stop: 03/26/21 20:59 Last Admin: 02/24/21 21:51 Dose: 5 mg Documented by: Aspirin (Aspirin 325 Mg Ectab) 325 mg PO QAM [facility] Stop: 03/26/21 08:59 Last Admin: 02/25/21 08:53 Dose: 325 mg Documented by: Atorvastatin Calcium (Atorvastatin 10 Mg Tab) 10 mg PO DAILY [facility] Stop: 03/27/21 08:59 Last Admin: 02/25/21 08:53 Dose: 10 mg Documented by: Chlorthalidone (Chlorthalidone 25 Mg Tab) 25 mg PO Q2D@0900 [facility] Stop: 03/28/21 08:59 Dextrose (Dextrose 50% 50 Ml Syringe) 25 - 50 ml IV UD PRN; Protocol PRN Reason: Hypoglycemia Protocol Stop: 03/25/21 15:28 Last Admin: 02/25/21 04:18 Dose: 50 ml Documented by: Docusate Sodium (Docusate Sodium 100 Mg Cap) 100 mg PO BID [facility] Stop: 03/25/21 20:59 Last Admin: 02/25/21 08:53 Dose: 100 mg Documented by: Enoxaparin Sodium (Enoxaparin Inj 40 Mg/0.4 Ml Syr) 40 mg SQ QAM [facility] Stop: 03/26/21 08:59 Last Admin: 02/25/21 08:52 Dose: 40 mg Documented by: Glucagon (Glucagon For Inj 1 Mg Vial) 1 mg SQ UD PRN; Protocol PRN Reason: Hypoglycemia Protocol Stop: 03/25/21 15:28 Glucose (Glucose 10 Tabs/Tube) 4 - 8 tabs PO UD PRN; Protocol PRN Reason: Hypoglycemia Protocol Stop: 03/25/21 15:28 Glucose (Glucose 40% Gel 15 Gm Tube) 15 - 30 gm PO UD PRN; Protocol PRN Reason: Hypoglycemia Protocol Stop: 03/25/21 15:28 Hydroxychloroquine Sulfate (Hydroxychloroquine Sulfate 200 Mg Tab) 200 mg PO DAILY [facility] Stop: 03/25/21 15:28 Last Admin: 02/25/21 08:53 Dose: 200 mg Documented by: Insulin Aspart (Insulin Aspart 100 Units/Ml 3 Ml Pen) 0 units SC QDB [facility] Stop: 03/28/21 07:29 Insulin Aspart (Insulin Aspart 100 Units/Ml 3 Ml Pen) 0 units SC TID@1130,1630,2100 [facility] Stop: 03/27/21 11:59 Last Admin: 02/25/21 17:50 Dose: 17 units Documented by: Insulin Glargine (Insulin Glargine Solostar 100 Units/Ml 3 Ml Pen) 21 units SC HS [facility]; Protocol Stop: 02/25/21 21:01 Insulin Glargine (Insulin Glargine Solostar 100 Units/Ml 3 Ml Pen) 18 units SC BID [facility]; Protocol Stop: 03/28/21 08:59 Labetalol HCl (Labetalol Hcl 100 Mg Tab) 50 mg PO QAM [facility] Stop: 03/26/21 08:59 Last Admin: 02/25/21 08:54 Dose: 50 mg Documented by: Labetalol HCl (Labetalol Hcl 100 Mg Tab) 100 mg PO DAILY@1500 [facility] Stop: 03/26/21 14:59 Last Admin: 02/25/21 15:56 Dose: 100 mg Documented by: Lisinopril (Lisinopril 40 Mg Tab) 40 mg PO QPM [facility] Stop: 03/26/21 20:59 Last Admin: 02/24/21 21:51 Dose: 40 mg Documented by: Magnesium Hydroxide (Magnesium Hydroxide Susp 30 Ml Udc) 30 ml PO Q12H PRN PRN Reason: Constipation Stop: 03/25/21 15:28 Metoprolol Tartrate (Metoprolol Tartrate 1 Mg/Ml Vial) 5 mg IV Q4 PRN PRN Reason: HTN Stop: 03/26/21 00:00 Miscellaneous (Carbohydrates For Hypoglycemia ) 15 - 30 gm PO UD PRN PRN Reason: Hypoglycemia Protocol Stop: 03/25/21 15:28 Miscellaneous (Enbrel - Order Awaiting Action) 1 ea N/A QS [facility] Stop: 03/26/21 10:59 Last Admin: 02/25/21 15:26 Dose: Not Given Documented by: Miscellaneous Information (Pharmacy Glycemic Mgmt Consult) 1 ea N/A UD PRN PRN Reason: Consult Stop: 03/26/21 11:39 Nitroglycerin (Nitroglycerin Sl 0.4 Mg/Tab Tab) 0.4 mg SL UD PRN PRN Reason: Chest Pain Stop: 03/25/21 15:28 Nortriptyline HCl (Nortriptyline Hcl 25 Mg Cap) 25 mg PO BID [facility] Stop: 03/25/21 20:59 Last Admin: 02/25/21 08:53 Dose: 25 mg Documented by: Ondansetron HCl (Ondansetron Inj 2 Mg/Ml 2 Ml Vial) 4 mg IV Q6H PRN PRN Reason: Nausea Stop: 03/25/21 15:28 Polyethylene Glycol (Polyethylene (Miralax) 17 Gm Pack) 17 gm PO DAILY PRN PRN Reason: Constipation Stop: 03/25/21 15:28 Resident Activity Tracking Resident Involvement: Resident Care Provided Care Provided: Adult Hospital Medicine (1) HTN (hypertension) Hypertension type: unspecified Qualified Code(s): I10 - Essential (primary) hypertension
[2021-02-25] MEDS: amLODIPine BESYLATE 5 MG TAB PO SCH (20:51)
[2021-02-25] MEDS: lisinopril 40 MG TAB PO SCH (20:51)
[2021-02-25] MEDS ORDERED: INSULIN GLARGINE SOLOSTAR 100 UNITS/ML 3 ML PEN SC ONE (21:00)
[2021-02-26] MEDS ORDERED: INSULIN ASPART 100 UNITS/ML 3 ML PEN SC SCH (07:30)
--- NOTE | 2021-02-26 08:19 | Discharge Summary ---
Date of Service February 26, 2021 Admission HPI Per Admitting Provider 65-year-old male with a past medical history of hypertension diabetes, hyperlipidemia, CVA who presents emergency department from [facility] for repeated episodes of syncope.First episode of syncope was approximately a month ago. He states that he fell in the cell did not tell anyone at that time.He states he frequently gets dizzy when he gets up from sitting to standing but not every time. Denies any chest pain or shortness of breath at rest or with exertion.Denies any palpitations or abnormal heart rhythms.He denies any history of heart attack or heart problems. Review of medical record reveals 4 ER visits since June 2019 with multiple related to complaints of dizziness or dehydration. He has never been admitted for these concerns. Primary Care Provider: [facility] Admission Exam Per Admitting Provider Physical Exam: Constitutional: man sitting up in bed in NAD Eyes: EOMI, pupils equal and reactive bilaterally, no scleral icterus Cardiac: tachycardic, regular rhythm, no murmurs, gallops or rubs. Normal S1, S2 Pulm: CTA BL, no wheezes, rhonchi, crackles or rubs, moving air well throughout both lungs Abd: soft, nontender, nondistended, normal bowel sounds, no rebound or guarding Extremities: 2+ peripheral pulses, no edema Neuro: no focal deficits, moving all 4 limbs, A&Ox3 Principal Diagnosis Recurrent syncopal episodes secondary to orthostatic hypotension complicated by history of ulcerative colitis and rheumatoid arthritis Discharge Exam General: No acute distress HEENT: Normocephalic atraumatic Neck: No significant lymphadenopathy, trachea midline, normal to visual inspection Cardiac: Regular rate and rhythm, normal S1, normal S2, I did not appreciated any significant murmurs rubs or gallops, I did not appreciate any significant pedal edema, No calf tenderness, capillary refill is less than 3 seconds Respiratory: Clear to auscultation bilaterally with symmetrical chest rise, I did not appreciate any significant wheezes, rales, rhonchi, no increased work of breathing GI: Normal bowel sounds, soft, nontender in all 4 quadrants, nondistended MSK: No sensory or motor changes, moves all extremities without issue, extremities are warm and well-perfused Skin: [place], clean, dry, intact. Neuro: Alert and oriented x4 Psych: Calm, cooperative, logical thought process Discharge Data Allergies Allergy/AdvReac Type Severity Reaction Status Date / Time No Known Allergies Allergy Unverified 12/24/20 10:49 Consultations 02/23/21 11:46 ED Decision to Admit Stat 02/23/21 15:29 Consult Cardiology Routine Ordered Studies 02/23/21 09:32 CT head/brain wo con Stat Diabetes Follow up Diabetes Follow-up Needed for HgbA1c >9% Hospital Course (1) Recurrent syncope: 65 yo M with hx HLD, DM2, HTN, CVA brought to ER for dizziness and syncopal episode, admitted for recurrent syncope and abnormal EKG. Recurrent Syncope CT negative, Normal electrolytes. Orthostatic vitals - drop from 150-100 systolic between lying and standing without appropriate heart rate elevation. Orthostasis likely sec to autonomic dysfunction from long standing diabetes in combination with med side effect from amlodipine and nortriptyline. Evidence of dehydration by elevated BUN/Cr ratio, could be contributing to syncopal episodes. -Cardiology consulted -Tapered labetalol 50 every morning, 100 q. afternoon. Continue taper as an outpatient with cardiology supervision -Allow permission higher systolic readings. Reporting that he was symptom free on the day of discharge. On the night prior to discharge he had minimally elevated blood pressures max systolic of 177. Would continue to follow-up with outpatient cue selector and taper medications while in the senior living. Abnormal EKG Demonstrating sinus with first-degree AV block and nonspecific T wave abnormality, cardiology was consulted see above. -Echo: LV systolic function normal, EF 55-60, no wall motion abnormalities, mild LVH, grade 1 diastolic dysfunction Anemia Hg 11.8 today, 12 last month, 15 in 03/2020.MCV 89. iron studies ordered. Suspect secondary to anemia of chronic disease -Hemoglobin stable 13.8 APRIL on CKD3 baseline GFR appears to be 49-57; CKD3A. Avoid nephrotoxins DM2 with neuropathy home regimen of 24 unit glargine AM and 18 unit Daily? as well as regular insulin 6u BID + metformin. Given hx high and low bsgs at senior living, placed on 14 unit lantus BID with SSI for daytime coverage to estimate required insulin coverage. Resumed previous antiglycemic regimen on discharge HTN Complex antihypertensive regimen, Plan is to transition amlodipine and lisinopril to evening dosing, and slowly decrease labetalol HLD w/ hx CVA - cont statin, ASA 325 - Continue atorvastatin 40 mg -Lipids: Cholesterol 107 LDL 51 HDL 41 Ulcertive Colitis Diagnosed a number of years ago, no recent flareups. Could be source of present anemia either acute bleed or secondary to anemia of chronic disease. continued hydroxychloroquine 200 mg p.o. daily Rheumatoid arthritis Patient with history of rheumatoid arthritis, treated with weekly Enbrel injections, has been tolerating well. Receives Enbrel on Wednesdays. -Enbrel q. weekly Nic Ahuja MD PGY 2, FCM This chart was completed utilizing [email or web address] voice recognition software. Grammatical errors, random word insertions, pronoun errors, and in complete sentences are an occasional consequence of the system. Any questions or concerns about the content, text, or information contained within the body of this dictation should be addressed directly to the physician for clarification. (2) Anemia: (3) Hyperlipidemia: (4) Diabetes: (5) HTN (hypertension): (6) Surgical history unknown: (7) CVA (cerebral infarction): (8) Abnormal EKG: Total Time Total Time Spent Total Time Spent (In Minutes): 43 Discharge Plan Discharge Items [facility] Reason For Visit: SYNCOPE Discharge Diagnosis: Recurrent syncopal episodes secondary to orthostatic hypotension complicated by history of ulcerative colitis and rheumatoid arthritis Activity: Resume your previous activity Non-emergency contact: Primary Care Provider and Media Arts Professor Call non-emergency contact if: you have any medication questions and your pain is not controlled Follow-up/Referrals: Luc BACA [Primary Care Provider] - Diet: Heart Healthy Addtl Attending Provider Instructions: 65 yo M with hx HLD, DM2, HTN, CVA brought to ER for dizziness and syncopal episode, admitted for recurrent syncope and abnormal EKG. Recurrent Syncope Patient. Prior emergency room visits for dizziness and dehydration without prior admission. Patient continues to have recurrent syncopal episode. Head CT obtained in the ED was negative, no clinical signs of intracranial mass, electrolytes are within normal limits. Orthostatic vitals demonstrating orthostatic hypotension with a drop from 1 50-100 between lying and standing without appropriate heart rate elevation. Evidence of dehydration by elevated BUN/Cr ratio, could be contributing to syncopal episodes. Given the increasing frequency of this episode patient was admitted for further evaluation and management and cardiology consultation. Cardiology recommending modification to antihypertensive regimen including slow tapering of labetalol, and changing patient's amlodipine and lisinopril to evening dosing. Patient made significant improvement overnight after medication changes, reported minimal symptoms with his episodes of orthostatic hypotension. Patient continued to improve from the orthostatic hypotension standpoint. Reporting that he was symptom free on the day of discharge. On the night prior to discharge he had minimally elevated blood pressures max systolic of 177. Would continue to follow-up with outpatient cue selector and taper medications while in the senior living. -Cardiology consulted -Tapered labetalol 50 every morning, 100 q. afternoon. Continue taper as an outpatient with cardiology supervision Abnormal EKG Demonstrating sinus with first-degree AV block and nonspecific T wave abnormality, cardiology was consulted see above. -Echo: LV systolic function normal, EF 55-60, no wall motion abnormalities, mild LVH, grade 1 diastolic dysfunction Anemia Hg 11.8 today, 12 last month, 15 in 03/2020.MCV 89. iron studies ordered. Suspect secondary to anemia of chronic disease -Hemoglobin stable 13.8 APRIL on CKD3 baseline GFR appears to be 49-57; CKD3A. Avoid nephrotoxins DM2 with neuropathy home regimen of 24 unit glargine AM and 18 unit Daily? as well as regular insulin 6u BID + metformin. Given hx high and low bsgs at senior living, placed on 14 unit lantus BID with SSI for daytime coverage to estimate required insulin coverage. Resumed previous antiglycemic regimen on discharge HTN Complex antihypertensive regimen, Plan is to transition amlodipine and lisinopril to evening dosing, and slowly decrease labetalol HLD w/ hx CVA - cont statin, ASA 325 - Continue atorvastatin 40 mg -Lipids: Cholesterol 107 LDL 51 HDL 41 Ulcertive Colitis Diagnosed a number of years ago, no recent flareups. Could be source of present anemia either acute bleed or secondary to anemia of chronic disease. continued hydroxychloroquine 200 mg p.o. daily Rheumatoid arthritis Patient with history of rheumatoid arthritis, treated with weekly Enbrel injections, has been tolerating well. Receives Enbrel on Wednesdays. -Enbrel q. weekly Nic Ahuja MD PGY 2, FCM This chart was completed utilizing [email or web address] voice recognition software. Grammatical errors, random word insertions, pronoun errors, and in complete sentences are an occasional consequence of the system. Any questions or concerns about the content, text, or information contained within the body of this dictation should be addressed directly to the physician for clarification. Pending Studies at Discharge: No Skilled Items Patient informed of condition?: Yes Discharge Level of Care: Other Communicable Disease: No Discharge Prognosis: Stable Lines: None Urinary Catheter: No Medications and DC Order Prescriptions: New amlodipine [Norvasc] 5 mg Tablet 5 mg PO QPM 30 Days Qty: 30 RF: 0 labetalol 100 mg Tablet 50 mg PO QAM 30 Days Qty: 15 RF: 0 labetalol 100 mg Tablet 100 mg PO DAILY@1500 30 Days RF: 0 lisinopril [Zestril] 40 mg Tablet 40 mg PO QPM 30 Days Qty: 30 RF: 0 Continued metformin 500 mg Tablet 500 mg PO BID RF: 0 atorvastatin 10 mg Tablet 10 mg PO DAILY RF: 0 aspirin 325 mg Tablet 325 mg PO DAILY RF: 0 nortriptyline 25 mg Capsule 25 mg PO BID RF: 0 folic acid 1 mg Tablet 1 mg PO DAILY RF: 0 hydroxychloroquine 200 mg Tablet 200 mg PO DAILY RF: 0 docusate sodium 100 mg Tablet 100 mg PO BID RF: 0 Novolin R Flexpen 100 unit/mL (3 mL) Insulin Pen 6 unit SUBCUT BID RF: 0 Enbrel 50 mg/mL (1 mL) Syringe 50 mg SUBCUT WK RF: 0 insulin glargine 100 unit/mL (3 mL) Insulin Pen 18 unit SUBCUT DAILY RF: 0 insulin glargine 100 unit/mL (3 mL) Insulin Pen 24 unit SUBCUT QAM RF: 0 Glucagon (HCl) Emergency Kit 1 mg Recon Soln 1 mg subcut DAILY PRN (Reason: Hypoglycemia) RF: 0 cyanocobalamin (vitamin B-12) [Vitamin B-12] 1,000 mcg Tablet 1,000 mcg PO DAILY RF: 0 chlorthalidone 25 mg Tablet 25 mg PO DAILY RF: 0 Discontinued labetalol 200 mg Tablet 200 mg PO BID RF: 0 lisinopril 40 mg Tablet 40 mg PO DAILY RF: 0 amlodipine 5 mg Tablet 5 mg PO DAILY RF: 0 labetalol 100 mg Tablet 100 mg PO DAILY RF: 0 Discharge Orders: Discharge Order (Routine); Ordered 02/26/21 Ordered By: Nic Chamorro/Other Patient Handouts: A1C Admission Data Admit Date/Time: 02/26/21 08:28 Attending Provider: Isabel Foster Admit Provider: Bianca Holguin Primary Care Provider: Luc BACA Other Providers: Skip Martinez Anthony F. Other Interventions: Discharge Summary Assessment (RN) Last Done: 02/26/21 11:37 Supervising Physician Co-Signing Physician Notes Resident Physician Supervision Note: I independently interviewed and examined the patient and verified the hinds history and physical, reviewed labs and image studies and agree with resident Dr. Nic Ahuja findings and care plan. Resident Activity Tracking Resident Involvement: Resident Care Provided Care Provided: Adult Hospital Medicine
[2021-02-26] MEDS ORDERED: INSULIN GLARGINE SOLOSTAR 100 UNITS/ML 3 ML PEN SC SCH (09:00)
[2021-02-26] MEDS ORDERED: CHLORTHALIDONE 25 MG TAB PO SCH (09:00)
[2021-02-26] MEDS: ASPIRIN 325 MG ECTAB PO SCH (09:04)
[2021-02-26] MEDS: ENOXAPARIN INJ 40 MG/0.4 ML SYR SQ SCH (09:05)
[2021-02-26] MEDS: ATORVASTATIN 10 MG TAB PO SCH (09:05)
[2021-02-26] MEDS: DOCUSATE SODIUM 100 MG CAP PO SCH (09:05)
[2021-02-26] MEDS: NORTRIPTYLINE HCL 25 MG CAP PO SCH (09:06)
[2021-02-26] MEDS: HYDROXYCHLOROQUINE SULFATE 200 MG TAB PO SCH (09:06)
[2021-02-26] MEDS: LABETALOL HCL 100 MG TAB PO SCH (09:06)
[2021-02-26] MEDS: INSULIN ASPART 100 UNITS/ML 3 ML PEN SC SCH (12:29)
--- NOTE | 2021-02-26 13:31 | Cardiology Progress Note ---
Date of Service February 26, 2021 Assessment & Plan (1) Orthostatic hypotension: (2) Recurrent syncope: (3) HTN (hypertension): (4) Diabetes: Patient asymptomatic with normotensive BP. We will certainly attempt to have him stand upright and walk to ensure he does not again demonstrate marked orthostatic hypotension. If he does, further downward titration of his vasoactive medications would be appropriate. See prior note regarding clonidine PRN use. Monitor blood pressure variability and symptoms on every other day chlorthalidone to assess optimal dosing. Continue lisinopril and amlodipine for now, reduce dose if necessary. Further blood pressure monitoring and medication adjustment likely could be achieved at the [facility]. No new recommendations at this time. Admission and Anticipated Discharge Date Admission Date: February 26, 2021 Subjective Patient was comfortable this morning with no complaints at rest. He denies chest pain, dyspnea, subjective palpitations, or lightheadedness (although he had not been out of bed). Rhythm was sinus in the 60-70s overnight. BP was normotensive for the past 24 hours. Orthostatics not tested today. Physical Exam Physical Exam: No distress. BP 126/84 mmHg. Pulse 70 bpm and regular without ectopy. Skin: no ecchymoses or generalized lesions. HEENT: unremarkable. Neck: Jugular venous pulse at the clavicle at 90 degrees, no carotid bruits. Lungs: clear. Cardiac: regular rhythm, normal S1 and S2, no murmur or gallop. Abdomen: benign. Extremities: no edema, pulses intact. Neurologic: normal affect and conversation, grossly nonfocal. Results & Data ([facility]) Vital Signs (Past 12 Hours) Vital Signs Temp Pulse Pulse Resp BP BP Pulse Ox 02/26/21 11:37 99.0 F 70 19 121/68 126/84 97 02/26/21 11:28 99.0 F 70 19 121/68 97 02/26/21 10:44 74 02/26/21 07:46 97.9 F 67 18 135/82 97 02/26/21 07:00 02/26/21 03:21 98.6 F 68 18 148/70 H 98 Pulse Ox 02/26/21 11:37 02/26/21 11:28 02/26/21 10:44 02/26/21 07:46 02/26/21 07:00 97 02/26/21 03:21 PG Care Time/CCT Total # of Minutes Spent Total Time Spent with Patient: Total time spent is greater than 50% in coordination of care (as documented) at patient's floor/unit and/or counseling patient: Coding Level of Care Code 65320 Subseq Hosp Care Lvl 2 Diagnoses Orthostatic hypotension I95.1 Recurrent syncope R55 HTN (hypertension) I10 Hypertension type: unspecified Diabetes E11.9 (1) HTN (hypertension) Hypertension type: unspecified Qualified Code(s): I10 - Essential (primary) hypertension
--- NOTE | 2021-03-02 22:26 | Billing Data ---
Date of Service February 23, 2021 Coding Level of Care Code 84432 Initial Inpt Care Lvl 3
== END 2021-02-26 15:12 | DRG 312 ==
LOC: ED 09:23 → 2N 09:23 → SUATTDRO 12:12 → 2N 14:51

== ENCOUNTER 2022-09-19 13:10 | Inpatient (IN) ==
[2022-09-19] MEDS ORDERED: SODIUM CHLORIDE 0.9% 1000ML 1,000 ML IV SCH ×2 (13:30→19:15)
--- NOTE | 2022-09-19 13:31 | Emergency Department Note ---
History of Present Illness General Chief complaint: Illness Time Seen by Provider: 09/19/22 13:15 Source: patient and EMS Mode of arrival: EMS Limitations: altered mental status History of Present Illness Provider complaint: Altered mental status, chest pain This is a 67-year-old male brought in by EMS due to concern for altered mental status and concern for chest pain. Patient found to be hypoglycemic by the inf irmary as well as by EMS. They did notice some subtle EKG changes in route. Patient states he began having upper abdominal and chest pain yesterday and had several episodes of nausea vomiting. He denies any coming diarrhea, denies fevers or chills. Patient states [facility] did not give him his routine medications including his insulin last night and he does not know why. Patient states he was recently told he had diabetic ulcers and was sent to a specialist for this. Patient states he has had a prior stroke. Patient states he has no chest or abdominal pain at this time. No sense of nausea. Patient states he is felt confused intermittently this morning. Patient placed in room D2 as there were no other available beds in the department on the day of high volume and acuity. Home Medications Medication Instructions Recorded Confirmed Type aspirin 325 mg tablet 325 mg PO DAILY 10/18/20 02/23/21 History atorvastatin 10 mg tablet 10 mg PO DAILY 10/18/20 02/23/21 History docusate sodium 100 mg tablet 100 mg PO BID 10/18/20 02/23/21 History etanercept 50 mg/mL (1 mL) 50 mg subcut WK 10/18/20 02/23/21 History subcutaneous syringe (Enbrel) folic acid 1 mg tablet 1 mg PO DAILY 10/18/20 02/23/21 History glucagon HCl 1 mg solution for 1 mg subcut DAILY PRN Hypoglycemia 10/18/20 02/23/21 History injection (Glucagon (HCl) Emergency Kit) hydroxychloroquine 200 mg tablet 200 mg PO DAILY 10/18/20 02/23/21 History insulin glargine 100 unit/mL (3 18 unit subcut DAILY 10/18/20 02/23/21 History mL) subcutaneous pen insulin glargine 100 unit/mL (3 24 unit subcut QAM 10/18/20 02/23/21 History mL) subcutaneous pen insulin regular human 100 unit/mL 6 unit subcut BID 10/18/20 02/23/21 History (3 mL) subcutaneous pen (Novolin R Flexpen) metformin 500 mg tablet 500 mg PO BID 10/18/20 02/23/21 History nortriptyline 25 mg capsule 25 mg PO BID 10/18/20 02/23/21 History chlorthalidone 25 mg tablet 25 mg PO DAILY 12/24/20 02/23/21 History cyanocobalamin (vitamin B-12) 1,000 mcg PO DAILY 12/24/20 02/23/21 History 1,000 mcg tablet (Vitamin B-12) Allergies Allergy/AdvReac Type Severity Reaction Status Date / Time No Known Allergies Allergy Unverified 12/24/20 10:49 Past Med/Surg History Medical History Colitis CVA (cerebral infarction) (2015) Diabetes HTN (hypertension) Hyperlipidemia Orthostatic hypotension (2015) Syncope (2015) Surgical History S/P craniotomy Surgical history unknown Family History Other Family history non-contributory Social History Smoking Status: Former smoker Tobacco Type: Cigarettes Age Started Using Tobacco: 13; packs per day: 0.5; Smoking End Date: 5 years ago; Second Hand Exposure: No; Do You Dip or Chew Tobacco: No; Tobacco Cessation Education Requested by Patient: No Hx Alcohol Use: No Hx Substance Use: Yes Prescribed Medications: Marijuana Last Used Substance Other:: 2007 Substance Use Type Other:: K2 Preferred Language: Bengali Communication Ability: Effective Nephrology Nurse Required: No Beliefs That Will Affect Care: None marital status: Current Living Situation: Other Current Living Situation Comment: [facility] current occupational status: unemployed Other Information That Helps Us Care for You: No Feels Safe at Home: Yes Safety Concerns: Feels Safe At This Time Assistive Devices: Glasses Review of Systems A total of 10 systems reviewed and were otherwise negative All systems reviewed & are unremarkable except as noted in HPI & below Physical Exam Vital Signs Vital Signs - 24 hr 09/19/22 13:15 09/19/22 13:27 09/19/22 13:39 Temperature 36.7 C Temperature Source Oral Pulse Rate 90 86 Pulse Rate from SpO2 Sensor 86 Respiratory Rate 20 20 Respiratory Effort / Characteristics Non-Labored Respiratory Depth Normal Respiratory Pattern Regular Blood Pressure 187/101 H Blood Pressure Mean 129 Blood Pressure Position Lying Pulse Oximetry 100 100 94 Oxygen Delivery Method Room Air Room Air Sepsis Recent Fever Within 48 Hours No Sepsis New/Unexplained Change in Mental Status N/A Sepsis Action Taken by Nursing No Action Required 09/19/22 13:40 09/19/22 13:50 09/19/22 13:56 Temperature Temperature Source Pulse Rate 88 94 H 90 Pulse Rate from SpO2 Sensor 85 93 H 92 H Respiratory Rate 18 21 15 Respiratory Effort / Characteristics Respiratory Depth Respiratory Pattern Blood Pressure Blood Pressure Mean Blood Pressure Position Pulse Oximetry 96 100 92 Oxygen Delivery Method Sepsis Recent Fever Within 48 Hours Sepsis New/Unexplained Change in Mental Status Sepsis Action Taken by Nursing 09/19/22 13:56 09/19/22 14:00 09/19/22 14:00 Temperature Temperature Source Pulse Rate 89 Pulse Rate from SpO2 Sensor 89 Respiratory Rate 17 Respiratory Effort / Characteristics Respiratory Depth Respiratory Pattern Blood Pressure 187/111 H 199/119 H Blood Pressure Mean 136 145 Blood Pressure Position Pulse Oximetry 100 Oxygen Delivery Method Sepsis Recent Fever Within 48 Hours Sepsis New/Unexplained Change in Mental Status Sepsis Action Taken by Nursing 09/19/22 14:10 09/19/22 14:20 09/19/22 14:30 Temperature Temperature Source Pulse Rate 90 85 Pulse Rate from SpO2 Sensor 91 H 85 Respiratory Rate 17 18 Respiratory Effort / Characteristics Respiratory Depth Respiratory Pattern Blood Pressure 210/124 H Blood Pressure Mean 152 Blood Pressure Position Pulse Oximetry 95 99 Oxygen Delivery Method Sepsis Recent Fever Within 48 Hours Sepsis New/Unexplained Change in Mental Status Sepsis Action Taken by Nursing 09/19/22 14:30 09/19/22 14:34 09/19/22 14:34 Temperature Temperature Source Pulse Rate 89 86 Pulse Rate from SpO2 Sensor 88 86 Respiratory Rate 24 17 Respiratory Effort / Characteristics Respiratory Depth Respiratory Pattern Blood Pressure 178/127 H Blood Pressure Mean 144 Blood Pressure Position Pulse Oximetry 98 100 Oxygen Delivery Method Sepsis Recent Fever Within 48 Hours Sepsis New/Unexplained Change in Mental Status Sepsis Action Taken by Nursing 09/19/22 14:35 09/19/22 14:45 09/19/22 15:00 Temperature Temperature Source Pulse Rate 85 85 85 Pulse Rate from SpO2 Sensor 85 Respiratory Rate 23 19 16 Respiratory Effort / Characteristics Respiratory Depth Respiratory Pattern Blood Pressure Blood Pressure Mean Blood Pressure Position Pulse Oximetry 99 Oxygen Delivery Method Sepsis Recent Fever Within 48 Hours Sepsis New/Unexplained Change in Mental Status Sepsis Action Taken by Nursing 09/19/22 15:01 09/19/22 15:01 09/19/22 15:11 Temperature Temperature Source Pulse Rate 84 Pulse Rate from SpO2 Sensor Respiratory Rate 18 Respiratory Effort / Characteristics Respiratory Depth Respiratory Pattern Blood Pressure 206/92 H 160/99 H Blood Pressure Mean 130 119 Blood Pressure Position Pulse Oximetry Oxygen Delivery Method Sepsis Recent Fever Within 48 Hours Sepsis New/Unexplained Change in Mental Status Sepsis Action Taken by Nursing 09/19/22 15:11 09/19/22 15:15 09/19/22 15:15 Temperature Temperature Source Pulse Rate 69 67 Pulse Rate from SpO2 Sensor 69 Respiratory Rate 17 15 Respiratory Effort / Characteristics Respiratory Depth Respiratory Pattern Blood Pressure 175/93 H Blood Pressure Mean 120 Blood Pressure Position Pulse Oximetry 100 98 Oxygen Delivery Method Sepsis Recent Fever Within 48 Hours Sepsis New/Unexplained Change in Mental Status Sepsis Action Taken by Nursing 09/19/22 15:20 09/19/22 15:20 09/19/22 15:25 Temperature Temperature Source Pulse Rate 67 Pulse Rate from SpO2 Sensor 68 Respiratory Rate 16 Respiratory Effort / Characteristics Respiratory Depth Respiratory Pattern Blood Pressure 191/84 H 137/115 H Blood Pressure Mean 119 122 Blood Pressure Position Pulse Oximetry 95 Oxygen Delivery Method Sepsis Recent Fever Within 48 Hours Sepsis New/Unexplained Change in Mental Status Sepsis Action Taken by Nursing 09/19/22 15:25 09/19/22 15:30 09/19/22 15:30 Temperature Temperature Source Pulse Rate 66 65 Pulse Rate from SpO2 Sensor 66 65 Respiratory Rate 20 17 Respiratory Effort / Characteristics Respiratory Depth Respiratory Pattern Blood Pressure 142/94 H Blood Pressure Mean 110 Blood Pressure Position Pulse Oximetry 98 100 Oxygen Delivery Method Sepsis Recent Fever Within 48 Hours Sepsis New/Unexplained Change in Mental Status Sepsis Action Taken by Nursing 09/19/22 15:36 09/19/22 15:36 Temperature Temperature Source Pulse Rate 66 Pulse Rate from SpO2 Sensor 66 Respiratory Rate 17 Respiratory Effort / Characteristics Respiratory Depth Respiratory Pattern Blood Pressure 158/89 H Blood Pressure Mean 112 Blood Pressure Position Pulse Oximetry 99 Oxygen Delivery Method Sepsis Recent Fever Within 48 Hours Sepsis New/Unexplained Change in Mental Status Sepsis Action Taken by Nursing GENERAL: alert, unwell appearing, well nourished, no distress, non-toxic EYE EXAM: normal conjunctiva, PERRL and EOM's grossly intact OROPHARYNX: no exudate, no erythema, lips, buccal mucosa, and tongue normal and mucous membranes are dry NECK: supple, no nuchal rigidity, no adenopathy, non-tender LUNGS: Clear to auscultation. Normal chest wall mechanics, no w/r/r HEART: no murmurs, S1 normal and S2 normal ABDOMEN: abdomen soft, non-tender, normo-active bowel sounds, no masses, no rebound or guarding. BACK: Back is symmetrical on inspection and there is no deformity, no midline tenderness, no CVA tenderness. SKIN: no rashes and no bruising UPPER EXTREMITIES: upper extremities are grossly normal. FROM, nml pulses b/l. LOWER EXTREMITIES: No pitting edema. FROM, nml pulses b/l. Evidence of evolving infection noted on the left foot specifically at the fifth toe as well as the great toe, there is surrounding erythema and tenderness with palpation, mild drainage noted, no ulcerative lesions noted at the right foot. NEURO EXAM: Normal sensorium, cranial nerves II-XII grossly intact, normal speech, no gross weakness of arms, no gross weakness of legs. Gross sensation intact. Course Administered Medications Insulin Human Regular 250 (units/ Sodium Chloride) 250 mls @ 0 mls/hr IV .Q0M REINA; Protocol Stop: 10/19/22 14:44 Last Titration: 09/19/22 20:02 Dose: 7.2 mls/hr Documented By: CF Co-signed By: NOE Titration: 09/19/22 19:31 Dose: 0 mls/hr Documented By: CF Co-signed By: JT Titration: 09/19/22 17:12 Dose: 12 ml/hr, 12 mls/hr Documented By: Co-signed By: TESSA Admin: 09/19/22 15:35 Dose: 10 ml/hr, 10 mls/hr Documented By: NMS Co-signed By: TESSA Parenteral Electrolytes (Normosol-R) 1,000 mls @ 130 mls/hr IV .Q7H42M REINA Stop: 10/19/22 18:44 Last Admin: 09/19/22 18:51 Dose: 130 mls/hr Documented By: DAA Discontinued Medications Sodium Chloride (Nss 1000ml) 1,000 mls @ 999 mls/hr IV .Q1H1M REINA Stop: 09/19/22 14:30 Last Infusion: 09/19/22 15:44 Dose: 0 mls/hr Documented By: Admin: 09/19/22 14:30 Dose: 999 mls/hr Documented By: XU Vancomycin HCl 1,750 mg/ (Sodium Chloride) 535 mls @ 200 mls/hr IV NOW ONE Stop: 09/19/22 17:09 Last Admin: 09/19/22 15:18 Dose: 200 mls/hr Documented By: XU Cefepime HCl (Maxipime) 2,000 mg in 20 mls @ 5 mls/min IV NOW STA; Protocol Stop: 09/19/22 14:32 Last Admin: 09/19/22 15:15 Dose: 5 mls/min Documented By: XU Sodium Chloride (Nss 1000ml) 1,000 mls @ 999 mls/hr IV .Q1H1M ONE Stop: 09/19/22 15:29 Last Infusion: 09/19/22 16:29 Dose: 0 mls/hr Documented By: Admin: 09/19/22 15:28 Dose: 999 mls/hr Documented By: XU Insulin Human Regular 250 (units/ Sodium Chloride) 250 mls @ 9 mls/hr IV .Q24H REINA; Protocol Stop: 10/19/22 14:44 Last Admin: 09/19/22 15:29 Dose: Not Given Documented By: XU Co-signed By: TESSA Insulin Aspart (Insulin Aspart Per Unit) 0 units SC ACHS REINA Stop: 10/19/22 16:29 Last Admin: 09/19/22 20:06 Dose: Not Given Documented By: ANH Insulin Human Regular (Novolin-R Bolus From Bag) 9 units IV ONE ONE Stop: 09/19/22 15:01 Last Admin: 09/19/22 15:24 Dose: 9 units Documented By: XU Co-signed By: TESSA Labetalol HCl (Labetalol Hcl Iv 5 Mg/Ml 20ml) 10 mg IV NOW STA Stop: 09/19/22 14:38 Last Admin: 09/19/22 15:10 Dose: 10 mg Documented By: XU Co-signed By: TESSA Merazaneous (Stat Insulin Drip) 1 each N/A NOW STA Stop: 09/19/22 14:40 Last Admin: 09/19/22 15:29 Dose: Not Given Documented By: NMS Miscellaneous (Dka Goal Range 150-250 Mg/Dl) 1 each N/A ONE ONE Stop: 09/19/22 14:40 Last Admin: 09/19/22 15:29 Dose: Not Given Documented By: NMS Critical Care Time Critical Care Time: Yes Total Critical Care Time: 70 Critical care of 70 min performed to assess and manage high likelihood of life- threatening DKA, involving labs and imaging performed with assessment to evaluate DKA diagnosis with frequent reassessment. This time includes bedside time, treatment discussions with patient/family/consultants, documentation time and excludes procedure time. Medical Decision Making Differential Diagnosis Differential diagnoses includes but is not limited to toxic, metabolic, infectious, traumatic, cardiac, neurologic, hematologic, psychiatric and inflammatory etiologies. Medical Records Attestation: I reviewed the patient's medical records. Home Medications Current Medication List: was personally reviewed by me Laboratory Data Attestation: I reviewed the patient's lab results. Result diagrams: 09/19/22 13:35 09/19/22 19:05 Lab Results 09/19/22 09/19/22 09/19/22 Range/Units 13:35 13:35 13:35 WBC 14.00 H (4.8-10.8) K/ul RBC 4.16 L (4.63-6.08) M/uL Hgb 12.5 L (14.0-18.0) g/dl Hct 36.8 L (40.1-51.0) % MCV 88.5 (80.0-100.0) fL MCH 30.0 (25.0-34.0) pg MCHC 34.0 (32.0-36.0) g/dL RDW Std Deviation 39.7 (36.4-46.3) fL RDW Coeff of Vidal 12.3 (11.5-14.5) % Plt Count 188 (130-400) K/uL MPV 12.1 (9.4-12.4) fL Neutrophils % (Manual) 77 % Lymphocytes % (Manual) 16 % Monocytes % (Manual) 7 % Basophils % (Manual) 1 % Neutrophils # (Manual) 10.78 H (1.4-6.5) K/uL Total Absolute Neuts 10.78 H (1.4-6.5) K/uL Lymphocytes # (Manual) 2.24 (1.2-3.4) K/uL Total Abs Lymphocytes 2.24 (1.2-3.4) K/uL Monocytes # (Manual) 0.98 H (0.24-0.82) K/uL Basophils # (Manual) 0.14 (0-0.2) K/uL Toxic Vacuolation 1+ PT (9.0-12.0) Seconds INR (0.9-1.1) ABG pH (7.35-7.45) ABG pCO2 (35-46) mmHg ABG pO2 (80-95) mmHg ABG HCO3 (19-24) mmol/L ABG O2 Saturation (90-95) % ABG Base Excess (-9-1.8) mEq/L Valentin Test (Pos) Oxygen Given Sodium 119 L* (136-145) mmol/L Potassium 6.0 H (3.5-5.1) mmol/L Chloride 83 L (98-107) mmol/L Carbon Dioxide 20 L (21-32) mmol/L Anion Gap 16 H (3-11) BUN 59 H (6-23) mg/dl Creatinine 2.09 H (0.6-1.4) mg/dl Est Cr Clr Drug Dosing 38.6 ml/min Est GFR ( Amer) 36.3 ml/min Est GFR (Non-Af Amer) 31.4 ml/min BUN/Creatinine Ratio 28.2 H (10-20) Glucose 792 H* (70-99(Fasting)) mg/dl Lactate (0.4-2.0) mmol/L Calcium 9.2 (8.5-10.1) mg/dl Magnesium 2.2 (1.7-2.4) mg/dl Total Bilirubin 1.0 (0.2-1.0) mg/dl Direct Bilirubin 0.4 H (0-0.2) mg/dl AST 52 H (13-39) U/L ALT 38 (7-52) U/L Alkaline Phosphatase 125 H (34-104) U/L Troponin I High Sens 28.2 H (0-20) pg/ml Total Protein 8.0 (6.0-8.3) gm/dl Albumin 4.0 (3.4-5.0) gm/dl Procalcitonin 1.56 H (0-0.5) ng/ml Urine Color Urine Appearance (Clear) Urine pH (4.5-7.5) Ur Specific [place] (1.000-1.030) Urine Protein (Negative) Urine Glucose (UA) (Negative) Urine Ketones (Negative) Urine Blood (Negative) Urine Nitrite (Negative) Urine Bilirubin (Negative) Urine Urobilinogen (Negative) Ur Leukocyte Esterase (Negative) Urine WBC (Auto) (0-5) /hpf Urine RBC (Auto) (0-4) /hpf U Hyaline Cast (Auto) (0-5) /lpf U Epithel Cells (Auto) (0-5) /lpf Urine Bacteria (Auto) (Negative) SARS-CoV-2 (PCR) (Negative) Influenza Type A (PCR) (Neg) Influenza Type B (PCR) (Neg) RSV (RT-PCR) (Neg) 09/19/22 09/19/22 09/19/22 Range/Units 13:35 13:40 14:17 WBC (4.8-10.8) K/ul RBC (4.63-6.08) M/uL Hgb (14.0-18.0) g/dl Hct (40.1-51.0) % MCV (80.0-100.0) fL MCH (25.0-34.0) pg MCHC (32.0-36.0) g/dL RDW Std Deviation (36.4-46.3) fL RDW Coeff of Vidal (11.5-14.5) % Plt Count (130-400) K/uL MPV (9.4-12.4) fL Neutrophils % (Manual) % Lymphocytes % (Manual) % Monocytes % (Manual) % Basophils % (Manual) % Neutrophils # (Manual) (1.4-6.5) K/uL Total Absolute Neuts (1.4-6.5) K/uL Lymphocytes # (Manual) (1.2-3.4) K/uL Total Abs Lymphocytes (1.2-3.4) K/uL Monocytes # (Manual) (0.24-0.82) K/uL Basophils # (Manual) (0-0.2) K/uL Toxic Vacuolation PT 11.7 (9.0-12.0) Seconds INR 1.1 (0.9-1.1) ABG pH (7.35-7.45) ABG pCO2 (35-46) mmHg ABG pO2 (80-95) mmHg ABG HCO3 (19-24) mmol/L ABG O2 Saturation (90-95) % ABG Base Excess (-9-1.8) mEq/L Valentin Test (Pos) Oxygen Given Sodium (136-145) mmol/L Potassium (3.5-5.1) mmol/L Chloride (98-107) mmol/L Carbon Dioxide (21-32) mmol/L Anion Gap (3-11) BUN (6-23) mg/dl Creatinine (0.6-1.4) mg/dl Est Cr Clr Drug Dosing ml/min Est GFR ( Amer) ml/min Est GFR (Non-Af Amer) ml/min BUN/Creatinine Ratio (10-20) Glucose (70-99(Fasting)) mg/dl Lactate 1.9 (0.4-2.0) mmol/L Calcium (8.5-10.1) mg/dl Magnesium (1.7-2.4) mg/dl Total Bilirubin (0.2-1.0) mg/dl Direct Bilirubin (0-0.2) mg/dl AST (13-39) U/L ALT (7-52) U/L Alkaline Phosphatase (34-104) U/L Troponin I High Sens (0-20) pg/ml Total Protein (6.0-8.3) gm/dl Albumin (3.4-5.0) gm/dl Procalcitonin (0-0.5) ng/ml Urine Color Yellow Urine Appearance Clear (Clear) Urine pH 5.0 (4.5-7.5) Ur Specific [place] 1.024 (1.000-1.030) Urine Protein Negative (Negative) Urine Glucose (UA) 3+ H (Negative) Urine Ketones 1+ H (Negative) Urine Blood Trace H (Negative) Urine Nitrite Negative (Negative) Urine Bilirubin Negative (Negative) Urine Urobilinogen Negative (Negative) Ur Leukocyte Esterase Negative (Negative) Urine WBC (Auto) 0 (0-5) /hpf Urine RBC (Auto) 0-4 (0-4) /hpf U Hyaline Cast (Auto) 0 (0-5) /lpf U Epithel Cells (Auto) 0-5 (0-5) /lpf Urine Bacteria (Auto) Negative (Negative) SARS-CoV-2 (PCR) (Negative) Influenza Type A (PCR) (Neg) Influenza Type B (PCR) (Neg) RSV (RT-PCR) (Neg) 09/19/22 09/19/22 09/19/22 Range/Units 14:18 14:26 16:35 WBC (4.8-10.8) K/ul RBC (4.63-6.08) M/uL Hgb (14.0-18.0) g/dl Hct (40.1-51.0) % MCV (80.0-100.0) fL MCH (25.0-34.0) pg MCHC (32.0-36.0) g/dL RDW Std Deviation (36.4-46.3) fL RDW Coeff of Vidal (11.5-14.5) % Plt Count (130-400) K/uL MPV (9.4-12.4) fL Neutrophils % (Manual) % Lymphocytes % (Manual) % Monocytes % (Manual) % Basophils % (Manual) % Neutrophils # (Manual) (1.4-6.5) K/uL Total Absolute Neuts (1.4-6.5) K/uL Lymphocytes # (Manual) (1.2-3.4) K/uL Total Abs Lymphocytes (1.2-3.4) K/uL Monocytes # (Manual) (0.24-0.82) K/uL Basophils # (Manual) (0-0.2) K/uL Toxic Vacuolation PT (9.0-12.0) Seconds INR (0.9-1.1) ABG pH 7.33 L (7.35-7.45) ABG pCO2 38 (35-46) mmHg ABG pO2 85 (80-95) mmHg ABG HCO3 20 (19-24) mmol/L ABG O2 Saturation 98.0 H (90-95) % ABG Base Excess -5.4 (-9-1.8) mEq/L Valentin Test POS (Pos) Oxygen Given ROOM AIR Sodium (136-145) mmol/L Potassium (3.5-5.1) mmol/L Chloride (98-107) mmol/L Carbon Dioxide (21-32) mmol/L Anion Gap (3-11) BUN (6-23) mg/dl Creatinine (0.6-1.4) mg/dl Est Cr Clr Drug Dosing ml/min Est GFR ( Amer) ml/min Est GFR (Non-Af Amer) ml/min BUN/Creatinine Ratio (10-20) Glucose 545 H* (70-99(Fasting)) mg/dl Lactate (0.4-2.0) mmol/L Calcium (8.5-10.1) mg/dl Magnesium (1.7-2.4) mg/dl Total Bilirubin (0.2-1.0) mg/dl Direct Bilirubin (0-0.2) mg/dl AST (13-39) U/L ALT (7-52) U/L Alkaline Phosphatase (34-104) U/L Troponin I High Sens (0-20) pg/ml Total Protein (6.0-8.3) gm/dl Albumin (3.4-5.0) gm/dl Procalcitonin (0-0.5) ng/ml Urine Color Urine Appearance (Clear) Urine pH (4.5-7.5) Ur Specific [place] (1.000-1.030) Urine Protein (Negative) Urine Glucose (UA) (Negative) Urine Ketones (Negative) Urine Blood (Negative) Urine Nitrite (Negative) Urine Bilirubin (Negative) Urine Urobilinogen (Negative) Ur Leukocyte Esterase (Negative) Urine WBC (Auto) (0-5) /hpf Urine RBC (Auto) (0-4) /hpf U Hyaline Cast (Auto) (0-5) /lpf U Epithel Cells (Auto) (0-5) /lpf Urine Bacteria (Auto) (Negative) SARS-CoV-2 (PCR) NEGATIVE (Negative) Influenza Type A (PCR) Negative (Neg) Influenza Type B (PCR) Negative (Neg) RSV (RT-PCR) Negative (Neg) Imaging Data Radiologist's Impression: Chest X-Ray 09/19/22 13:27 XR chest 1V portable CLINICAL HISTORY: Sepsis TECHNIQUE: Single frontal radiograph of the chest was obtained. Comparison: Comparison is made to chest radiograph 06/08/2022 FINDINGS: No lines and tubes are seen. The cardiomediastinal silhouette is normal. The lungs are clear. No evidence of pleural effusion or pneumothorax. IMPRESSION: No acute abnormalities and in particular no evidence of pneumonia. ACT 112: Negative or not required by law. Electronically signed by: Dane Colmenares M.D. 09/19/2022 2:18 PM Foot X-Ray 09/19/22 13:27 XR foot LT min 3V routine CLINICAL HISTORY: Left foot infection. COMPARISON: None FINDINGS: Alignment of the left foot is anatomic. Tarsometatarsal joints are intact. There is no acute fracture. There is no evidence for acute osteomyelitis within the left foot. Subtle lucency projecting over the lateral left midfoot co uld reflect gas from a wound. Vascular calcification is incidentally noted. 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 IMPRESSION: No acute fracture. No evidence for acute osteomyelitis within the left foot. ACT 112: Negative or not required by law. Electronically signed by: Gerardo Patterson M.D. 09/19/2022 2:41 PM Abdomen/Pelvis CT 09/19/22 15:03 CT OF THE ABDOMEN AND PELVIS WITHOUT CONTRAST CLINICAL HISTORY: Abdominal pain, nausea and vomiting. COMPARISON STUDY: CT of the abdomen and pelvis February 27, 2017. TECHNIQUE: Axial images of the abdomen and pelvis were obtained without IV contrast. Images were reviewed in the axial, sagittal, and coronal planes. Automated exposure control was utilized for the study. A dose lowering technique was utilized adhering to the principles of ALARA. FINDINGS: Old left-sided rib fractures are incidentally noted. A 1.1 cm subpleural left lower lobe nodule on image 85 of [address] of February 27, 2017. This likely contains macroscopic fat and is suggestive of a hamartoma. This is benign. Mild circumferential wall thickening of the distal esophagus is noted. No pneumatosis, free air or portal venous gas is present. No hepatic lesions are identified on unenhanced exam. There is hepatic steatosis. Unenhanced images of the spleen, adrenal glands, right kidney and pancreas are unremarkable. Several left renal calculi measure up to 4 mm. There are no ureteral calculi. There is no hydronephrosis. Abdominal aorta is ectatic, measuring 2.8 cm in caliber. A moderate amount of stool within the colon and rectum is present. There is no evidence for a bowel obstruction. Colonic diverticulosis is present. No evidence for acute diverticulitis. The appendix is normal. There is no ascites or lymphadenopathy. No fluid collection is identified. No acute fracture within the visualized skeletal structures is present. There is mild nodularity of the subcutaneous tissues of the left anterior abdominal wall. This could be related to injections or represent a small contusion. IMPRESSION: 1. Left nephrolithiasis. No ureteral calculi or hydronephrosis. 2. Mild distal esophageal circumferential wall thickening. This is nonspecific but may reflect esophagitis. 3. No bowel obstruction. No bowel wall thickening on unenhanced exam. Moderate amount of stool within the colon and rectum. 4. Hepatic steatosis. ACT 112: Negative or not required by law. Electronically signed by: Gerardo Patterson M.D. 09/19/2022 5:[address] 09/19/22 15:03 CT SCAN OF THE LEFT FOOT WITHOUT IV CONTRAST CLINICAL HISTORY: Diabetic foot wound. COMPARISON STUDY: Radiographs of the left foot dated 09/19/2022. TECHNIQUE: CT scan of the left foot is performed from the ankle to the base of the foot. Images are reviewed in the axial, sagittal, and coronal planes. IV contrast was not administered for this examination. A dose lowering technique was utilized adhering to the principles of ALARA. CT DOSE: 183.21 mGy.cm FINDINGS: The skeletal structures are osteopenic. No acute fracture is seen. The ankle mortise is intact noting degenerative change at the tibiotalar articulation. There is no evidence of osteochondral defect in the talar dome. There are tiny dorsal and plantar calcaneal enthesophytes. No bony erosion or periostitis is identified. Degenerative change is seen at the first metatarsophalangeal joint and throughout the mid foot. No soft tissue gas is seen. The Achilles tendon is intact as visualized. There is generalized atrophy of the regional musculature. Atherosclerotic calcification is seen throughout the regional vessels. Mild soft tissue swelling is present throughout the foot. There is induration along the plantar aspect of the lateral mid foot at the base of the fifth metatarsal. No organized/drainable fluid collection is seen to suggest abscess. IMPRESSION: 1. No acute bony abnormality is identified. 2. Osteopenia and degenerative change as above. 3. There is mild soft tissue edema throughout the forefoot as above. 4. No soft tissue gas or organized fluid collection is identified. ACT 112: Negative or not required by law. Dictated: 09/19/2022 5:09 PM Transcribed: 09/19/2022 5:26 PM Dee [id number] [email or web address] Electronically signed by: Isra Webster M.D. 09/19/2022 5:[address] 09/19/22 15:03 CT SCAN OF THE BRAIN WITHOUT IV CONTRAST CLINICAL HISTORY: Change in mental status. Generalized weakness. COMPARISON STUDY: CT of the brain dated 02/23/2021. TECHNIQUE: Unenhanced axial CT scan of the brain is performed from the vertex to the skull base. A dose lowering technique was utilized adhering to the principles of ALARA. CT DOSE: 884.08 mGy.cm FINDINGS: Brain parenchyma: A focus of left frontal encephalomalacia is consistent with a remote insult. There is age-related involutional change noting mild subcortical and periventricular microangiopathic disease. There is no hemorrhage, mass effect, or evidence of acute territorial ischemia by CT criteria. Chronic lacunar infarcts are noted in the left basal ganglia and the right cerebellar hemisphere. Flores-white matter differentiation is preserved. No extra-axial fluid collection is seen. Ventricles, sulci, cisterns: Prominent secondary to involutional change. Intracranial vasculature: There is atherosclerotic calcification of the cavernous carotid and vertebral arteries. Calvarium: There is postsurgical change from left-sided craniotomy. Sinuses and mastoids: The visualized paranasal sinuses are clear. The mastoid air cells are well pneumatized. Orbits: The bony orbits are grossly intact. IMPRESSION: Chronic and postsurgical changes as above with no hemorrhage, mass effect, or evidence of acute territorial ischemia by CT criteria. ACT 112: Negative or not required by law. Electronically signed by: Isra Webster M.D. 09/19/2022 5:08 PM ECG Data Attestation: I personally reviewed and interpreted this ECG as follows: Indication: + chest pain Rate (beats per minute): 86 Rhythm: + normal sinus ECG Intervals/blocks: + First degree AV block, + Normal QRS and + Normal QT ECG [place]: + Normal ECG ST segments: + ST depression (V5-6) MDM Narrative An order was placed for continuous cardiac monitoring. The monitor shows a rate of _78__ with _normal sinus__ rhythm. This is a 67-year-old male presents emergency department via EMS due to concern for abdominal pain, nausea and vomiting, and hyperglycemia. Patient given 1 L of LR from EMS in route. EKG did show subtle ST depression, no evidence of changes for a heart alert. Sepsis evaluation was undertaken after physical exam revealed significant diabetic ulcers and evidence of evolving cellulitis to the left foot. Given diabetic status and appearance of the wounds, I was concerned for possible evolving osteomyelitis. A second IV was established. Patient given IV antibiotics, and insulin drip started once chemistry panel revealed significant hyperglycemia in the 700s and DKA. Patient's blood gas with re assuring pH. Mild hyperkalemia noted in addition to APRIL. Patient had no current chest pain, abdominal pain, nausea or vomiting while in the emergency room. Patient was noted to be hypertensive. He was given additional medication here as a precaution. Patient found to have an elevated procalcitonin although lactic acid reassuring. Patient rechecked multiple times by myself due to limited staff in the basic care area. No evidence of worsening changes or instability were noted. I did notify the ICU attending as a precaution given difficulty with placing admissions and complicated case. Case discussed with hospitalist for additional evaluation and management. Patient did begin to have slow improvement of electrolytes and glucose after initiation of insulin drip. No evidence of osteomyelitis on CT. No other evidence of acute GI pathology on CT of abdomen and pelvis. CT head due to patient's admission of slight intermittent confusion was also reassuring. No acute findings on chest x-ray. I suspect DKA secondary to diabetic foot ulcers and worsening infection. Impression & Plan Abdominal pain, Nausea & vomiting, DKA (diabetic ketoacidosis), APRIL (acute kidney injury), Cellulitis of foot, left, Diabetic foot ulcer, Acute hyperkalemia, Elevated troponin, Elevated procalcitonin, Abnormal EKG Discharge Plan Visit Data Chief Complaint: Illness ED Provider: Beverley Christine Discharge Problem: Abdominal pain, Nausea & vomiting, DKA (diabetic ketoacidosis), APRIL (acute kidney injury), Cellulitis of foot, left, Diabetic foot ulcer, Acute hyperkalemia, Elevated troponin, Elevated procalcitonin, Abnormal EKG Patient Disposition: Admitted As Inpatient Discharge Instructions Interventions: ED Discharge Assessment Last Done: 09/19/22 18:07
--- NOTE | 2022-09-19 14:20 | XRay Report ---
XR chest 1V portable CLINICAL HISTORY: Sepsis TECHNIQUE: Single frontal radiograph of the chest was obtained. Comparison: Comparison is made to chest radiograph 06/08/2022 FINDINGS: No lines and tubes are seen. The cardiomediastinal silhouette is normal. The lungs are clear. No evid ence of pleural effusion or pneumothorax. IMPRESSION: No acute abnormalities and in particular no evidence of pneumonia. ACT 112: Negative or not required by law. Electronically signed by: Dane Colmenares M.D. 09/19/2022 2:18 PM
[2022-09-19 14:24] LABS: Hematocrit (blood only) 36.8 % (40.1-51.0); Hemoglobin 12.5 g/dl (14.0-18.0); Mean Corpuscular Volume 88.5 fL (80.0-100.0); Mean Platelet Volume 12.1 fL (9.4-12.4); Platelet Count 188 K/uL (130-400); RDW Coefficient of Variation 12.3 % (11.5-14.5); RDW Standard Deviation 39.7 fL (36.4-46.3); Red Blood Count 4.16 M/uL (4.63-6.08)
[2022-09-19 14:25] LABS: ALC (manual) 2.24 K/uL (1.2-3.4); ANC (manual) 10.78 K/uL (1.4-6.5); Basophils # (manual) 0.14 K/uL (0-0.2); Basophils % (manual) 1 %; Lymphocytes # (manual) 2.24 K/uL (1.2-3.4); Lymphocytes % (manual) 16 %; Monocytes # (manual) 0.98 K/uL (0.24-0.82); Monocytes % (manual) 7 %; Neutrophils # (manual) 10.78 K/uL (1.4-6.5); Neutrophils % (manual) 77 %; Toxic Vacuolation 1+
[2022-09-19 14:28] LABS: Base Excess ABG -5.4 mEq/L (-9-1.8); HCO3 ABG 20 mmol/L (19-24); PCO2 ABG 38 mmHg (35-46); PO2 ABG 85 mmHg (80-95); pH ABG 7.33 (7.35-7.45)
[2022-09-19] MEDS ORDERED: SODIUM CHLORIDE 0.9% 1000ML 1,000 ML IV ONE (14:29)
[2022-09-19] MEDS ORDERED: VANCOMYCIN CONSULT ACTIVE PRN (14:29)
[2022-09-19] MEDS ORDERED: VANCOMYCIN HCL 1,750 MG in SODIUM CHLORIDE 0.9% 500 ML IV ONE (14:29)
[2022-09-19] MEDS ORDERED: CEFEPIME 2,000 MG/20 ML VIAL IV STA (14:29)
[2022-09-19 14:30] LABS: Allen Test POS (Pos)
[2022-09-19 14:36] LABS: BUN Creatinine Ratio 28.2 (10-20); Bilirubin Direct 0.4 mg/dl (0-0.2); Calcium 9.2 mg/dl (8.5-10.1); Creatinine Clr Calc Pharmacy 38.6 ml/min; Est GFR (African American) 36.3 ml/min; Est GFR (Non-African American) 31.4 ml/min; Magnesium 2.2 mg/dl (1.7-2.4); Troponin I High Sensitivity 28.2 pg/ml (0-20)
[2022-09-19] MEDS ORDERED: LABETALOL HCL IV 5 MG/ML 20ML IV STA (14:37)
[2022-09-19 14:38] LABS: INR 1.1 (0.9-1.1); Prothrombin Time 11.7 Seconds (9.0-12.0)
[2022-09-19 14:39] LABS: Appearance Urine Clear (Clear); Bacteria Urine Automated Negative (Negative); Bilirubin Urine Negative (Negative); Blood Urine Trace (Negative); Cast Urine Automated 0 /lpf (0-5); Color Urine Yellow; Epithelial Cell Urine Auto 0-5 /lpf (0-5); Glucose Urine UA 3+ (Negative); Ketones Urine 1+ (Negative); Leukocyte Esterase Urine Negative (Negative); Nitrite Urine Negative (Negative); Protein Urine Negative (Negative); RBC Urine Automated 0-4 /hpf (0-4); Specific Gravity Urine 1.024 (1.000-1.030); Urobilinogen Urine Negative (Negative); WBC Urine Automated 0 /hpf (0-5)
[2022-09-19] MEDS ORDERED: GLUCAGON FOR INJ 1 MG VIAL SQ PRN (14:39)
[2022-09-19] MEDS ORDERED: DEXTROSE 50% 50 ML SYRINGE IV PRN (14:39)
[2022-09-19] MEDS ORDERED: CARBOHYDRATES FOR HYPOGLYCEMIA PO PRN (14:39)
[2022-09-19] MEDS ORDERED: STAT INSULIN DRIP STA (14:39)
[2022-09-19] MEDS ORDERED: GLUCOSE 10 TAB/TUBE PO PRN (14:39)
[2022-09-19] MEDS ORDERED: GLUCOSE 40% GEL 15 GM TUBE PO PRN (14:39)
[2022-09-19] MEDS ORDERED: DKA GOAL RANGE 150-250 mg/dl ONE ×2 (14:39→19:15)
--- NOTE | 2022-09-19 14:42 | XRay Report ---
XR foot LT min 3V routine CLINICAL HISTORY: Left foot infection. COMPARISON: None FINDINGS: Alignment of the left foot is anatomic. Tarsometatarsal joints are intact. There is no acu te fracture. There is no evidence for acute osteomyelitis within the left foot. Subtle lucency projec ting over the lateral left midfoot could reflect gas from a wound. Vascular calcification is incident ally noted. 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 IMPRESSION: No acute fracture. No evidence for acute osteomyelitis within the left foot. ACT 112: Negative or not required by law. Electronically signed by: Gerardo Patterson M.D. 09/19/2022 2:41 PM
[2022-09-19] MEDS ORDERED: INSULIN REGULAR 250 UNITS in SODIUM CHLORIDE 0.9% 247.5 ML IV SCH ×2 (14:45→15:00)
[2022-09-19] MEDS ORDERED: NovoLIN-R BOLUS FROM BAG IV ONE (15:00)
[2022-09-19 15:46] LABS: Influenza A virus by PCR Negative (Neg); Influenza B virus by PCR Negative (Neg); RSV by PCR Negative (Neg); SARS CoV2 RNA(COVID-19) Ceph NEGATIVE (Negative)
--- NOTE | 2022-09-19 16:28 | History & Physical Report ---
Date of Service September 19, 2022 Assessment & Plan (1) HHNC (hyperglycemic hyperosmolar nonketotic coma): Plan: HHS/DKA No prior history of DKA. Type II more suspicious for HHS Per [facility] patient had not received insulin in last couple of days, notes it has been cold and patient had not come for his medications. 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 currently at 9 units, DKA titration protocol BMP every 4 hours, VBG every 4 hours NSS pending BMP repeat, when potassium normalizes can switch to LR versus NSS p armando KCl Troponin 28.2 high-sensitivity, no chest pain/chest pressure - CXR: No acute abnormalities and in particular no evidence of pneumonia. - Echo : No change compared to 2013. EF 50-60%, LV wall motion normal, grade 1 diastolic dysfunction Left fifth digit diabetic cellulitis with concern for osteo- CT pending for evaluation of osteomyelitis Continue cefepime/vancomycin Pro-Mike 1.56 in the setting of DKA Wound care consulted - XR: No acute fracture. No evidence for acute osteomyelitis within the left foot. Hyponatremia Sodium 08/25/2022 was 139 Admitting sodium 119 Correction by Fox for pseudohyponatremia gets corrected sodium of 136 Trend BMP every 4 hours DFI Left lateral fifth digit with acute erythema/warmth/open ulceration Continue cefepime/vancomycin CT read pending for osteoevaluation, no evidence of osteo on initial x-ray Continue wound care APRIL on CKD 3 2/2 DM 2 Creatinine baseline proxy 1.41.6 Admitting creatinine 2.09 Clinically volume depleted, increased anion gap, hyperkalemia consistent with metabolic acidosis 2/2 HHS. 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 Rheumatoid arthritis Hold hydroxychloroquine, Enbrel (2) Anemia: (3) Abnormal EKG: (4) HTN (hypertension): (5) Hyperlipidemia: (6) CVA (cerebral infarction): (7) Diabetes: History of Present Illness Primary Care Provider: PHUONG Calle Reports BSG normally 200s, sometimes as low as 80s No A1C in the last year, repeat pending Endorses as had some kidney problems, is not aware of the details or numbers Denies history of heart failure History of CVA a few years ago 'before COVID'. Endorses chronic residual L leg weakness since, some difficulty with speech/speech delay. Discussed with [facility] [facility], report has been cold and patient has not been coming for insulin doses recently. Per patient he had not been given insulin by the [facility] but does not elaborate further. Patient denies polyuria, endorses that he is felt very weak and tired . Notes that in the last 2 days the swelling on his toe has worsened and has been more red than usual. Does not have pain flexing/extending the toe. No time bedside assessment denies fever, chills, lightheadedness, dizziness, chest pain, chest pressure, shortness of breath. Endorses mild epigastric abdominal pain, endorses intermittent nausea. Denies constipation/diarrhea. Denies blood per rectum and melena. Other medications: Amlodipine 5 mg daily Aspirin full dose daily Atorvastatin 40 mg daily Enbrel 50 mg weekly Hydrochlorothiazide 12.5 mg 2 tablets daily Hydroxychloroquine 200 mg daily Labetalol 200 mg twice daily Meclizine 25 mg 3 times daily Nortriptyline 25 mg orally twice daily Med reconciliation with present: History of type 2 diabetes, hep C virus, hyperlipidemia, CVA 2016, benign hypertension, ulcerative colitis, rheumatoid arthritis, CAD without stenting No tobacco/alcohol use. Full code. Allergies Allergy/AdvReac Type Severity Reaction Status Date / Time No Known Allergies Allergy Unverified 12/24/20 10:49 Home Medications Medication Instructions Recorded Confirmed Type aspirin 325 mg tablet 325 mg PO DAILY 10/18/20 02/23/21 History atorvastatin 10 mg tablet 10 mg PO DAILY 10/18/20 02/23/21 History docusate sodium 100 mg tablet 100 mg PO BID 10/18/20 02/23/21 History etanercept 50 mg/mL (1 mL) 50 mg subcut WK 10/18/20 02/23/21 History subcutaneous syringe (Enbrel) folic acid 1 mg tablet 1 mg PO DAILY 10/18/20 02/23/21 History glucagon HCl 1 mg solution for 1 mg subcut DAILY PRN Hypoglycemia 10/18/20 02/23/21 History injection (Glucagon (HCl) Emergency Kit) hydroxychloroquine 200 mg tablet 200 mg PO DAILY 10/18/20 02/23/21 History insulin glargine 100 unit/mL (3 18 unit subcut DAILY 10/18/20 02/23/21 History mL) subcutaneous pen insulin glargine 100 unit/mL (3 24 unit subcut QAM 10/18/20 02/23/21 History mL) subcutaneous pen insulin regular human 100 unit/mL 6 unit subcut BID 10/18/20 02/23/21 History (3 mL) subcutaneous pen (Novolin R Flexpen) metformin 500 mg tablet 500 mg PO BID 10/18/20 02/23/21 History nortriptyline 25 mg capsule 25 mg PO BID 10/18/20 02/23/21 History chlorthalidone 25 mg tablet 25 mg PO DAILY 12/24/20 02/23/21 History cyanocobalamin (vitamin B-12) 1,000 mcg PO DAILY 12/24/20 02/23/21 History 1,000 mcg tablet (Vitamin B-12) Past Med/Surg History Medical History Colitis CVA (cerebral infarction) (2015) Diabetes HTN (hypertension) Hyperlipidemia Orthostatic hypotension (2015) Syncope (2015) Surgical History S/P craniotomy Surgical history unknown Family History Other Family history non-contributory Social History Smoking Status: Former smoker Tobacco Type: Cigarettes Age Started Using Tobacco: 13; packs per day: 0.5; Smoking End Date: 5 years ago; Second Hand Exposure: No; Do You Dip or Chew Tobacco: No; Tobacco Cessation Education Requested by Patient: No Hx Alcohol Use: No Hx Substance Use: Yes Prescribed Medications: Marijuana Last Used Substance Other:: 2007 Substance Use Type Other:: K2 Preferred Language: Telugu Communication Ability: Effective 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 NAD. Cooperative. Withdrawn affect HEENT: Atraumatic, normocephalic. Vision/hearing grossly intact. Pulm: CTAB A&P. -wheezes, -rales, -rhonchi. Symmetrical chest rise. No increased work of breathing. No respiratory distress. Cardiac: RRR, -mrg. Radial pulses intact and symmetrical. Abdominal: Mild epigastric tenderness without rebound/guarding Extremities: Left fifth toe with erythema, mild warmth, and ulceration without visible bone. No pain on passive toe flexion/extension. Sensation intact in the ankles to soft touch bilaterally. Results & Data Results & Data ([facility]) Vital Signs (Past 12 Hours) Vital Signs Temp Pulse Resp BP Pulse Ox O2 Del Method 09/19/22 15:36 66 17 99 09/19/22 15:36 158/89 H 09/19/22 15:30 65 17 100 09/19/22 15:30 142/94 H 09/19/22 15:25 66 20 98 09/19/22 15:25 137/115 H 09/19/22 15:20 191/84 H 09/19/22 15:20 67 16 95 09/19/22 15:15 67 15 98 09/19/22 15:15 175/93 H 09/19/22 15:11 69 17 100 09/19/22 15:11 160/99 H 09/19/22 15:01 84 18 09/19/22 15:01 206/92 H 09/19/22 15:00 85 16 09/19/22 14:45 85 19 09/19/22 14:35 85 23 99 09/19/22 14:34 86 17 100 09/19/22 14:34 178/127 H 09/19/22 14:30 89 24 98 09/19/22 14:30 210/124 H 09/19/22 14:20 85 18 99 09/19/22 14:10 90 17 95 09/19/22 14:00 89 17 100 09/19/22 14:00 199/119 H 09/19/22 13:56 187/111 H 09/19/22 13:56 90 15 92 09/19/22 13:50 94 H 21 100 09/19/22 13:40 88 18 96 09/19/22 13:39 86 20 94 09/19/22 13:27 100 Room Air 09/19/22 13:15 36.7 C 90 20 187/101 H 100 Room Air PG Care Time/CCT Total # of Minutes Spent Total Time Spent with Patient: Total time spent is greater than 50% in coordination of care (as documented) at patient's floor/unit and/or counseling patient: Coding Level of Care Code 58295 Initial Inpt Care Lvl 3 Diagnoses HHNC (hyperglycemic hyperosmolar nonketotic coma) E11.01 Anemia D64.9 Abnormal EKG R94.31 HTN (hypertension) I10 Hypertension type: unspecified Hyperlipidemia E78.5 CVA (cerebral infarction) I63.9 Diabetes E11.9 (1) HTN (hypertension) Hypertension type: unspecified Qualified Code(s): I10 - Essential (primary) hypertension
[2022-09-19] MEDS ORDERED: INSULIN ASPART PER UNIT SC SCH ×2 (16:30→21:00)
--- NOTE | 2022-09-19 17:10 | CT Scan Report ---
CT SCAN OF THE BRAIN WITHOUT IV CONTRAST CLINICAL HISTORY: Change in mental status. Generalized weakness. COMPARISON STUDY: CT of the brain dated 02/23/2021. TECHNIQUE: Unenhanced axial CT scan of the brain is performed from the vertex to the skull base. A do se lowering technique was utilized adhering to the principles of ALARA. CT DOSE: 884.08 mGy.cm FINDINGS: Brain parenchyma: A focus of left frontal encephalomalacia is consistent with a remote insult. There is age-related involutional change noting mild subcortical and periventricular microangiopathic disea se. There is no hemorrhage, mass effect, or evidence of acute territorial ischemia by CT criteria. Ch ronic lacunar infarcts are noted in the left basal ganglia and the right cerebellar hemisphere. Flores- white matter differentiation is preserved. No extra-axial fluid collection is seen. Ventricles, sulci, cisterns: Prominent secondary to involutional change. Intracranial vasculature: There is atherosclerotic calcification of the cavernous carotid and vertebr al arteries. Calvarium: There is postsurgical change from left-sided craniotomy. Sinuses and mastoids: The visualized paranasal sinuses are clear. The mastoid air cells are well pneu matized. Orbits: The bony orbits are grossly intact. IMPRESSION: Chronic and postsurgical changes as above with no hemorrhage, mass effect, or evidence of acute territorial ischemia by CT criteria. ACT 112: Negative or not required by law. Electronically signed by: Isra Webster M.D. 09/19/2022 5:08 PM
--- NOTE | 2022-09-19 17:16 | CT Scan Report ---
CT OF THE ABDOMEN AND PELVIS WITHOUT CONTRAST CLINICAL HISTORY: Abdominal pain, nausea and vomiting. COMPARISON STUDY: CT of the abdomen and pelvis February 27, 2017. TECHNIQUE: Axial images of the abdomen and pelvis were obtained without IV contrast. Images were revi ewed in the axial, sagittal, and coronal planes. Automated exposure control was utilized for the maurizio dy. A dose lowering technique was utilized adhering to the principles of ALARA. FINDINGS: Old left-sided rib fractures are incidentally noted. A 1.1 cm subpleural left lower lobe no dule on image 85 of [address] of February 27, 2017. This likely contains macroscopic fat a nd is suggestive of a hamartoma. This is benign. Mild circumferential wall thickening of the distal e sophagus is noted. No pneumatosis, free air or portal venous gas is present. No hepatic lesions are i dentified on unenhanced exam. There is hepatic steatosis. Unenhanced images of the spleen, adrenal gl ands, right kidney and pancreas are unremarkable. Several left renal calculi measure up to 4 mm. Ther e are no ureteral calculi. There is no hydronephrosis. Abdominal aorta is ectatic, measuring 2.8 cm i n caliber. A moderate amount of stool within the colon and rectum is present. There is no evidence fo r a bowel obstruction. Colonic diverticulosis is present. No evidence for acute diverticulitis. The a ppendix is normal. There is no ascites or lymphadenopathy. No fluid collection is identified. No acut e fracture within the visualized skeletal structures is present. There is mild nodularity of the subc utaneous tissues of the left anterior abdominal wall. This could be related to injections or represen t a small contusion. IMPRESSION: 1. Left nephrolithiasis. No ureteral calculi or hydronephrosis. 2. Mild distal esophageal circumferential wall thickening. This is nonspecific but may reflect esopha gitis. 3. No bowel obstruction. No bowel wall thickening on unenhanced exam. Moderate amount of stool within the colon and rectum. 4. Hepatic steatosis. ACT 112: Negative or not required by law. Electronically signed by: Gerardo Patterson M.D. 09/19/2022 5:13 PM
--- NOTE | 2022-09-19 17:30 | CT Scan Report ---
CT SCAN OF THE LEFT FOOT WITHOUT IV CONTRAST CLINICAL HISTORY: Diabetic foot wound. COMPARISON STUDY: Radiographs of the left foot dated 09/19/2022. TECHNIQUE: CT scan of the left foot is performed from the ankle to the base of the foot. Images are r eviewed in the axial, sagittal, and coronal planes. IV contrast was not administered for this examina tion. A dose lowering technique was utilized adhering to the principles of ALARA. CT DOSE: 183.21 mGy.cm FINDINGS: The skeletal structures are osteopenic. No acute fracture is seen. The ankle mortise is int act noting degenerative change at the tibiotalar articulation. There is no evidence of osteochondral defect in the talar dome. There are tiny dorsal and plantar calcaneal enthesophytes. No bony erosion or periostitis is identified. Degenerative change is seen at the first metatarsophalangeal joint and throughout the mid foot. No soft tissue gas is seen. The Achilles tendon is intact as visualized. The re is generalized atrophy of the regional musculature. Atherosclerotic calcification is seen througho ut the regional vessels. Mild soft tissue swelling is present throughout the foot. There is induratio n along the plantar aspect of the lateral mid foot at the base of the fifth metatarsal. No organized/ drainable fluid collection is seen to suggest abscess. IMPRESSION: 1. No acute bony abnormality is identified. 2. Osteopenia and degenerative change as above. 3. There is mild soft tissue edema throughout the forefoot as above. 4. No soft tissue gas or organized fluid collection is identified. ACT 112: Negative or not required by law. Dictated: 09/19/2022 5:09 PM Transcribed: 09/19/2022 5:26 PM Dee [id number] Stephen Electronically signed by: Isra Webster M.D. 09/19/2022 5:29 PM
[2022-09-19] MEDS ORDERED: NORMOSOL-R 1,000 ML IV SCH (18:45)
--- NOTE | 2022-09-19 18:54 | Critical Care Consultation ---
Date of Consultation September 19, 2022 Assessment & Plan (1) HHNC (hyperglycemic hyperosmolar nonketotic coma): (2) Diabetes: (3) Hyperlipidemia: (4) Colitis: (5) Anemia: (6) CVA (cerebral infarction): Plan Reason Critically Ill: 67 YOM admitted for elevated glucose, hyponatremia, leukocytosis. Concern for DKA by admitting team- appears more consistent with HHNS in the setting of likely bacterial infection with possible source at this time as left feet ulcerations. Neuro - Metabolic encephalopathy, HX of CVA in 2016 without residual effects CAM ICU: Negative - Support encephalopathy with insulin, IVF, and abx for likely bacterial infection Cardiac - HTN, HLD, Elevated HScTNI no acute adjustment in medications needed, not vasopressor requirement - HScTNI likely demand in the setting of CKD- no chest pain or ST elevation/dynamic changes- trend follow renal indices Respiratory - No acute needs GI - N/V, epigastric pain - send lipase with elevated glucose, epigastric pain, loss of appetitie- no evidence of CT scan however that is only 1/3 criteria for pancreatitis - IVF supportive care at this time RENAL/LYTES - DORITA II on CKD III, HYPOnatremia, AGA acidosis, Hyperkalemia - Edouard pre-renal elevation of BUN and SHIP SURVEYOR- follow daily with BMP following volume replacement - Hyponatremia in the setting of elevated glucose- corrects to 135 - follow continue with balance crystalloid resuscitation - serum osmo and urine osmo pending - Hyperkalemia likely related to acidosis, APRIL- follow q4 - should improve with volume and insulin infusion - AGAP -16 - likely HHNS - Electrolyte protocol - UA negative no acute needs- 1 ketone 3+ glucose Ulcerative Colitis hx - Hold immunosuppression medications at this time ENDO - HHNS, DM - PH 7.3, Gap 16, HCO3 20- likely HHNS with noticeable elevation of glucose to 792 with preserved PH and Hco3 - Volume resuscitation - osmo pending HEME - RA, UC - hold hydroxychloroquine and EMbrel until bacterial infection identified and treated ID - Diabetic foot ulceration without evidence of osteo - Continue Cefepime/stop vancomycin add datpo- MRSA swab pending - Wound care consultation - hemodynamically stable and lactate not elevated- follow LINES/IV ACCESS - PIV Continue use of these lines DVT PROPHYLAXIS - SCDS, Heparin 5000 units subq q tid DISPO: ICU overnight- likely downgrade in morning when BG corrected follow acid base balance and electrolytes I have personally spent 50 minutes of critical care time in the direct management of this patient. This is a life/limb threatening event. This includes time spent evaluating patient, direct bedside care, chart review, placing orders, interpretation of diagnostic studies, discussion with consultants, patient, and family members, as well as other required patient management activities. This time is exclusive of all separately billable procedures, and separate from and in addition to any other critical care service time. Thank you for allowing us to participate in the care of this patient. Please refer to my attending physician's documentation for any further recommendations. History of Present Illness Reason for Consultation: hyperglycemia, hyponatremia concern for DKA Requesting Physician: Luis Fuchs Attending Physician: Luis Fuchs MD History of Present Illness 67 YOM prisnoner with medical history of DMII on Metformin/Insulin, HLD, CVA, Ulcerative Colitis (Enbrel), RA (on hydroxychloroquine), CKD III, GERD. Patient comes to EMD for complaints of confusion, nausea, vomiting, abd pain. Patient states that he has not ate anything over the past few days and has not been getting his insulin. He is poor historian, but states he has also not been getting his medications to include his insulins. OVerall in the EMD the patient had CT scan of head, abdomen and pelvis, following admission he had imaging of his left foot for ulcerations. He was noted to be hyperglycemic in the 700s with HCO3 at 20, and PH at 7.3, AGAP of 16 as well as Hyponatermia to 119- which corrects to ~135. He was noted to have leukocytosis as well as elevated PCT with negative lactate. Was started on Cefepime following blood cultures. Source at this time possibly left foot ulcerations. Patient will be admitted on insulin infusion per DKA/HHNS protocol, continue with IVF resuscitation. Abdomen is tender and he has been having loss of appetitie and n/v, will also sent lipase at this time. UA negative. COVID/FLU/RSV test on admission: NEGATIVE CODE FULL Allergies Allergy/AdvReac Type Severity Reaction Status Date / Time No Known Allergies Allergy Unverified 12/24/20 10:49 Home Medications Medication Instructions Recorded Confirmed Type aspirin 325 mg tablet 325 mg PO DAILY 10/18/20 02/23/21 History atorvastatin 10 mg tablet 10 mg PO DAILY 10/18/20 02/23/21 History docusate sodium 100 mg tablet 100 mg PO BID 10/18/20 02/23/21 History etanercept 50 mg/mL (1 mL) 50 mg subcut WK 10/18/20 02/23/21 History subcutaneous syringe (Enbrel) folic acid 1 mg tablet 1 mg PO DAILY 10/18/20 02/23/21 History glucagon HCl 1 mg solution for 1 mg subcut DAILY PRN Hypoglycemia 10/18/20 02/23/21 History injection (Glucagon (HCl) Emergency Kit) hydroxychloroquine 200 mg tablet 200 mg PO DAILY 10/18/20 02/23/21 History insulin glargine 100 unit/mL (3 18 unit subcut DAILY 10/18/20 02/23/21 History mL) subcutaneous pen insulin glargine 100 unit/mL (3 24 unit subcut QAM 10/18/20 02/23/21 History mL) subcutaneous pen insulin regular human 100 unit/mL 6 unit subcut BID 10/18/20 02/23/21 History (3 mL) subcutaneous pen (Novolin R Flexpen) metformin 500 mg tablet 500 mg PO BID 10/18/20 02/23/21 History nortriptyline 25 mg capsule 25 mg PO BID 10/18/20 02/23/21 History chlorthalidone 25 mg tablet 25 mg PO DAILY 12/24/20 02/23/21 History cyanocobalamin (vitamin B-12) 1,000 mcg PO DAILY 12/24/20 02/23/21 History 1,000 mcg tablet (Vitamin B-12) Patient History Medical History Colitis CVA (cerebral infarction) (2016) Diabetes HTN (hypertension) Hyperlipidemia Orthostatic hypotension (2016) Syncope (2016) Surgical History S/P craniotomy Surgical history unknown Family History Other Family history non-contributory Social History Smoking Status: Former smoker Tobacco Type: Cigarettes Age Started Using Tobacco: 13; packs per day: 0.5; Smoking End Date: 5 years ago; Second Hand Exposure: No; Do You Dip or Chew Tobacco: No; Tobacco Cessation Education Requested by Patient: No Hx Alcohol Use: No Hx Substance Use: Yes Prescribed Medications: Marijuana Last Used Substance Other:: 2006 Substance Use Type Other:: K2 Preferred Language: Mongolian Communication Ability: Effective 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 Required: No Beliefs That Will Affect Care: None marital status: Current Living Situation: Other Current Living Situation Comment: antoine current occupational status: unemployed Other Information That Helps Us Care for You: No Feels Safe at Home: Yes Safety Concerns: Feels Safe At This Time Assistive Devices: Glasses Review of Systems Review of Systems: REVIEW OF SYSTEMS: Constitutional: (+) chills, No fever, sweats or chills Eyes: No diplopia, no worsening or blurred vision ENT: normal hearing, no trouble swallowing Respiratory: No cough, sputum, dyspnea at rest or on exertion Cardiovascular: No chest pain, tightness or palpitations Abdomen: (+) pain, nausea, vomiting, constipation, No diarrhea Musculoskeletal: (+) neuropathy, hx of RA, joint pain, calf pain, swelling Neurologic: No weakness, numbness/tingling, or balance problems Psychiatric: (+) depression Skin: (+) ulcerations to left small lateral toe, right great toe and 4th digit Physical Exam Physical Exam: PHYSICAL EXAM: General: awake, alert, no apparent distress Head: Normocephalic, atraumatic ENT: PERRL, EOMI, no pharyngeal exudate, mucous membranes dry Neuro: AAO x 3, speech clear and appropriate, strength intact bilaterally 5/5, sensation intact and equal all extremities and dermatomes, no pronator drift Chest: equal rise and fall of the chest, no accessory muscle use, no heaves or thrills, Clear to auscultation, on room air, Cardiac: Regular rate and rhythm, telemetry reviewed- NSR, skin warm dry, cap refill <3 seconds, peripheral pulses +2 no JVD, no murmur, no edema GI: hypoactive bowel sounds, soft, tender to palpation-epigastrum, no rebound, guarding or tenderness : Spontaneously voiding, no pain, no CVA tenderness, Psych: Normal mood and affect Skin: open ulceration to left lateral 5th toe, 4th toe with covered ulcer as well as great toe with covered ulceration Results & Data Results & Data ([facility]) Vital Signs (Past 12 Hours) Vital Signs Temp Pulse Pulse Resp BP BP BP 09/19/22 18:36 73 09/19/22 18:15 36.3 C L 74 18 153/86 H 09/19/22 18:00 76 16 147/80 H 09/19/22 15:36 66 17 09/19/22 15:36 158/89 H 09/19/22 15:30 65 17 09/19/22 15:30 142/94 H 09/19/22 15:25 66 20 09/19/22 15:25 137/115 H 09/19/22 15:20 191/84 H 09/19/22 15:20 67 16 09/19/22 15:15 67 15 09/19/22 15:15 175/93 H 09/19/22 15:11 69 17 09/19/22 15:11 160/99 H 09/19/22 15:01 84 18 09/19/22 15:01 206/92 H 09/19/22 15:00 85 16 09/19/22 14:45 85 19 09/19/22 14:35 85 23 09/19/22 14:34 86 17 09/19/22 14:34 178/127 H 09/19/22 14:30 89 24 09/19/22 14:30 210/124 H 09/19/22 14:20 85 18 09/19/22 14:10 90 17 09/19/22 14:00 89 17 09/19/22 14:00 199/119 H 09/19/22 13:56 187/111 H 09/19/22 13:56 90 15 09/19/22 13:50 94 H 21 09/19/22 13:40 88 18 09/19/22 13:39 86 20 09/19/22 13:27 09/19/22 13:15 36.7 C 90 20 187/101 H Pulse Ox O2 Del Method 09/19/22 18:36 09/19/22 18:15 100 Room Air 09/19/22 18:00 96 Room Air 09/19/22 15:36 99 09/19/22 15:36 09/19/22 15:30 100 09/19/22 15:30 09/19/22 15:25 98 09/19/22 15:25 09/19/22 15:20 09/19/22 15:20 95 09/19/22 15:15 98 09/19/22 15:15 09/19/22 15:11 100 09/19/22 15:11 09/19/22 15:01 09/19/22 15:01 09/19/22 15:00 09/19/22 14:45 09/19/22 14:35 99 09/19/22 14:34 100 09/19/22 14:34 09/19/22 14:30 98 09/19/22 14:30 09/19/22 14:20 99 09/19/22 14:10 95 09/19/22 14:00 100 09/19/22 14:00 09/19/22 13:56 09/19/22 13:56 92 09/19/22 13:50 100 09/19/22 13:40 96 09/19/22 13:39 94 09/19/22 13:27 100 Room Air 09/19/22 13:15 100 Room Air Laboratory Results Abnormal lab results 09/19/22 09/19/22 09/19/22 Range/Units 13:35 13:35 13:35 WBC 14.00 H (4.8-10.8) K/ul RBC 4.16 L (4.63-6.08) M/uL Hgb 12.5 L (14.0-18.0) g/dl Hct 36.8 L (40.1-51.0) % Neutrophils # (Manual) 10.78 H (1.4-6.5) K/uL Total Absolute Neuts 10.78 H (1.4-6.5) K/uL Monocytes # (Manual) 0.98 H (0.24-0.82) K/uL ABG pH (7.35-7.45) ABG O2 Saturation (90-95) % Sodium 119 L* (136-145) mmol/L Potassium 6.0 H (3.5-5.1) mmol/L Chloride 83 L (98-107) mmol/L Carbon Dioxide 20 L (21-32) mmol/L Anion Gap 16 H (3-11) BUN 59 H (6-23) mg/dl Creatinine 2.09 H (0.6-1.4) mg/dl BUN/Creatinine Ratio 28.2 H (10-20) Glucose 792 H* (70-99(Fasting)) mg/dl POC Glucose (70-99) mg/dl Direct Bilirubin 0.4 H (0-0.2) mg/dl AST 52 H (13-39) U/L Alkaline Phosphatase 125 H (34-104) U/L Troponin I High Sens 28.2 H (0-20) pg/ml Procalcitonin 1.56 H (0-0.5) ng/ml Urine Glucose (UA) (Negative) Urine Ketones (Negative) Urine Blood (Negative) 09/19/22 09/19/22 09/19/22 Range/Units 14:17 14:18 16:35 WBC (4.8-10.8) K/ul RBC (4.63-6.08) M/uL Hgb (14.0-18.0) g/dl Hct (40.1-51.0) % Neutrophils # (Manual) (1.4-6.5) K/uL Total Absolute Neuts (1.4-6.5) K/uL Monocytes # (Manual) (0.24-0.82) K/uL ABG pH 7.33 L (7.35-7.45) ABG O2 Saturation 98.0 H (90-95) % Sodium (136-145) mmol/L Potassium (3.5-5.1) mmol/L Chloride (98-107) mmol/L Carbon Dioxide (21-32) mmol/L Anion Gap (3-11) BUN (6-23) mg/dl Creatinine (0.6-1.4) mg/dl BUN/Creatinine Ratio (10-20) Glucose 545 H* (70-99(Fasting)) mg/dl POC Glucose (70-99) mg/dl Direct Bilirubin (0-0.2) mg/dl AST (13-39) U/L Alkaline Phosphatase (34-104) U/L Troponin I High Sens (0-20) pg/ml Procalcitonin (0-0.5) ng/ml Urine Glucose (UA) 3+ H (Negative) Urine Ketones 1+ H (Negative) Urine Blood Trace H (Negative) 09/19/22 Range/Units 18:12 WBC (4.8-10.8) K/ul RBC (4.63-6.08) M/uL Hgb (14.0-18.0) g/dl Hct (40.1-51.0) % Neutrophils # (Manual) (1.4-6.5) K/uL Total Absolute Neuts (1.4-6.5) K/uL Monocytes # (Manual) (0.24-0.82) K/uL ABG pH (7.35-7.45) ABG O2 Saturation (90-95) % Sodium (136-145) mmol/L Potassium (3.5-5.1) mmol/L Chloride (98-107) mmol/L Carbon Dioxide (21-32) mmol/L Anion Gap (3-11) BUN (6-23) mg/dl Creatinine (0.6-1.4) mg/dl BUN/Creatinine Ratio (10-20) Glucose (70-99(Fasting)) mg/dl POC Glucose 419 H* (70-99) mg/dl Direct Bilirubin (0-0.2) mg/dl AST (13-39) U/L Alkaline Phosphatase (34-104) U/L Troponin I High Sens (0-20) pg/ml Procalcitonin (0-0.5) ng/ml Urine Glucose (UA) (Negative) Urine Ketones (Negative) Urine Blood (Negative) Diagnostic Findings Chest X-Ray 09/19/22 13:27 XR chest 1V portable CLINICAL HISTORY: Sepsis TECHNIQUE: Single frontal radiograph of the chest was obtained. Comparison: Comparison is made to chest radiograph 06/08/2022 FINDINGS: No lines and tubes are seen. The cardiomediastinal silhouette is normal. The lungs are clear. No evidence of pleural effusion or pneumothorax. IMPRESSION: No acute abnormalities and in particular no evidence of pneumonia. ACT 112: Negative or not required by law. Electronically signed by: Dane Colmenares M.D. 09/19/2022 2:18 PM Foot X-Ray 09/19/22 13:27 XR foot LT min 3V routine CLINICAL HISTORY: Left foot infection. COMPARISON: None FINDINGS: Alignment of the left foot is anatomic. Tarsometatarsal joints are intact. There is no acute fracture. There is no evidence for acute osteomyelitis within the left foot. Subtle lucency projecting over the lateral left midfoot could reflect gas from a wound. Vascular calcification is incidentally noted. 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 IMPRESSION: No acute fracture. No evidence for acute osteomyelitis within the left foot. ACT 112: Negative or not required by law. Electronically signed by: Gerardo Patterson M.D. 09/19/2022 2:41 PM Abdomen/Pelvis CT 09/19/22 15:03 CT OF THE ABDOMEN AND PELVIS WITHOUT CONTRAST CLINICAL HISTORY: Abdominal pain, nausea and vomiting. COMPARISON STUDY: CT of the abdomen and pelvis February 27, 2017. TECHNIQUE: Axial images of the abdomen and pelvis were obtained without IV contrast. Images were reviewed in the axial, sagittal, and coronal planes. Automated exposure control was utilized for the study. A dose lowering technique was utilized adhering to the principles of ALARA. FINDINGS: Old left-sided rib fractures are incidentally noted. A 1.1 cm subpleural left lower lobe nodule on image 85 of [address] of February 27, 2017. This likely contains macroscopic fat and is suggestive of a hamartoma. This is benign. Mild circumferential wall thickening of the distal esophagus is noted. No pneumatosis, free air or portal venous gas is present. No hepatic lesions are identified on unenhanced exam. There is hepatic steatosis. Unenhanced images of the spleen, adrenal glands, right kidney and pancreas are unremarkable. Several left renal calculi measure up to 4 mm. There are no ureteral calculi. There is no hydronephrosis. Abdominal aorta is ectatic, measuring 2.8 cm in caliber. A moderate amount of stool within the colon and rectum is present. There is no evidence for a bowel obstruction. Colonic diverticulosis is present. No evidence for acute diverticulitis. The appendix is normal. There is no ascites or lymphadenopathy. No fluid collection is identif ied. No acute fracture within the visualized skeletal structures is present. There is mild nodularity of the subcutaneous tissues of the left anterior abdominal wall. This could be related to injections or represent a small contusion. IMPRESSION: 1. Left nephrolithiasis. No ureteral calculi or hydronephrosis. 2. Mild distal esophageal circumferential wall thickening. This is nonspecific but may reflect esophagitis. 3. No bowel obstruction. No bowel wall thickening on unenhanced exam. Moderate amount of stool within the colon and rectum. 4. Hepatic steatosis. ACT 112: Negative or not required by law. Electronically signed by: Gerardo Patterson M.D. 09/19/2022 5:[address] 09/19/22 15:03 CT SCAN OF THE LEFT FOOT WITHOUT IV CONTRAST CLINICAL HISTORY: Diabetic foot wound. COMPARISON STUDY: Radiographs of the left foot dated 09/19/2022. TECHNIQUE: CT scan of the left foot is performed from the ankle to the base of the foot. Images are reviewed in the axial, sagittal, and coronal planes. IV contrast was not administered for this examination. A dose lowering technique was utilized adhering to the principles of ALARA. CT DOSE: 183.21 mGy.cm FINDINGS: The skeletal structures are osteopenic. No acute fracture is seen. The ankle mortise is intact noting degenerative change at the tibiotalar articulation. There is no evidence of osteochondral defect in the talar dome. There are tiny dorsal and plantar calcaneal enthesophytes. No bony erosion or periostitis is identified. Degenerative change is seen at the first metatars ophalangeal joint and throughout the mid foot. No soft tissue gas is seen. The Achilles tendon is intact as visualized. There is generalized atrophy of the regional musculature. Atherosclerotic calcification is seen throughout the regional vessels. Mild soft tissue swelling is present throughout the foot. There is induration along the plantar aspect of the lateral mid foot at the base of the fifth metatarsal. No organized/drainable fluid collection is seen to suggest abscess. IMPRESSION: 1. No acute bony abnormality is identified. 2. Osteopenia and degenerative change as above. 3. There is mild soft tissue edema throughout the forefoot as above. 4. No soft tissue gas or organized fluid collection is identified. ACT 112: Negative or not required by law. Dictated: 09/19/2022 5:09 PM Transcribed: 09/19/2022 5:26 PM Dee [id number] [facility] Electronically signed by: Isra Webster M.D. 09/19/2022 5:[address] 09/19/22 15:03 CT SCAN OF THE BRAIN WITHOUT IV CONTRAST CLINICAL HISTORY: Change in mental status. Generalized weakness. COMPARISON STUDY: CT of the brain dated 02/23/2021. TECHNIQUE: Unenhanced axial CT scan of the brain is performed from the vertex to the skull base. A dose lowering technique was utilized adhering to the principles of ALARA. CT DOSE: 884.08 mGy.cm FINDINGS: Brain parenchyma: A focus of left frontal encephalomalacia is consistent with a remote insult. There is age-related involutional change noting mild subcortical and periventricular microangiopathic disease. There is no hemorrhage, mass effect, or evidence of acute territorial ischemia by CT criteria. Chronic lacunar infarcts are noted in the left basal ganglia and the right cerebellar hemisphere. Flores-white matter differentiation is preserved. No extra-axial fluid collection is seen. Ventricles, sulci, cisterns: Prominent secondary to involutional change. Intracranial vasculature: There is atherosclerotic calcification of the cavernous carotid and vertebral arteries. Calvarium: There is postsurgical change from left-sided craniotomy. Sinuses and mastoids: The visualized paranasal sinuses are clear. The mastoid ai r cells are well pneumatized. Orbits: The bony orbits are grossly intact. IMPRESSION: Chronic and postsurgical changes as above with no hemorrhage, mass effect, or evidence of acute territorial ischemia by CT criteria. ACT 112: Negative or not required by law. Electronically signed by: Isra Webster M.D. 09/19/2022 5:08 PM Medications Administered Insulin Human Regular 250 (units/ Sodium Chloride) 250 mls @ 12 mls/hr IV .[id number] REINA; Protocol Stop: 10/19/22 14:44 Last Titration: 09/19/22 17:12 Dose: 12 ml/hr, 12 mls/hr Documented By: Co-signed By: TESSA Admin: 09/19/22 15:35 Dose: 10 ml/hr, 10 mls/hr Documented By: XU Co-signed By: TESSA Parenteral Electrolytes (Normosol-R) 1,000 mls @ 130 mls/hr IV .Q7H42M REINA Stop: 10/19/22 18:44 Last Admin: 09/19/22 18:51 Dose: 130 mls/hr Documented By: DAA Discontinued Medications Sodium Chloride (Nss 1000ml) 1,000 mls @ 999 mls/hr IV .Q1H1M REINA Stop: 09/19/22 14:30 Last Infusion: 09/19/22 15:44 Dose: 0 mls/hr Documented By: Admin: 09/19/22 14:30 Dose: 999 mls/hr Documented By: XU Vancomycin HCl 1,750 mg/ (Sodium Chloride) 535 mls @ 200 mls/hr IV NOW ONE Stop: 09/19/22 17:09 Last Admin: 09/19/22 15:18 Dose: 200 mls/hr Documented By: XU Cefepime HCl (Maxipime) 2,000 mg in 20 mls @ 5 mls/min IV NOW STA; Protocol Stop: 09/19/22 14:32 Last Admin: 09/19/22 15:15 Dose: 5 mls/min Documented By: XU Sodium Chloride (Nss 1000ml) 1,000 mls @ 999 mls/hr IV .Q1H1M ONE Stop: 09/19/22 15:29 Last Infusion: 09/19/22 16:29 Dose: 0 mls/hr Documented By: Admin: 09/19/22 15:28 Dose: 999 mls/hr Documented By: XU Insulin Human Regular 250 (units/ Sodium Chloride) 250 mls @ 9 mls/hr IV .Q24H REINA; Protocol Stop: 10/19/22 14:44 Last Admin: 09/19/22 15:29 Dose: Not Given Documented By: XU Co-signed By: TESSA Insulin Human Regular (Novolin-R Bolus From Bag) 9 units IV ONE ONE Stop: 09/19/22 15:01 Last Admin: 09/19/22 15:24 Dose: 9 units Documented By: XU Co-signed By: TESSA Labetalol HCl (Labetalol Hcl Iv 5 Mg/Ml 20ml) 10 mg IV NOW STA Stop: 09/19/22 14:38 Last Admin: 09/19/22 15:10 Dose: 10 mg Documented By: XU Co-signed By: TESSA Miscellaneous (Stat Insulin Drip) 1 each N/A NOW STA Stop: 09/19/22 14:40 Last Admin: 09/19/22 15:29 Dose: Not Given Documented By: XU Merazaneous (Dka Goal Range 150-250 Mg/Dl) 1 each N/A ONE ONE Stop: 09/19/22 14:40 Last Admin: 09/19/22 15:29 Dose: Not Given Documented By: XU ECG Additional Comments: Sinus rhythm with 1st degree A-V block Otherwise normal ECG When compared with ECG of 08-JUN-2022 07:58, [place] interval has increased Coding Level of Care Code Critical Care 1st 30-74 mins Diagnoses HHNC (hyperglycemic hyperosmolar nonketotic coma) E11.01 Diabetes E11.9 Hyperlipidemia E78.5 Colitis K52.9 Anemia D64.9 CVA (cerebral infarction) I63.9
[2022-09-19] MEDS ORDERED: PHARMACY GLYCEMIC MGMT CONSULT PRN (19:15)
[2022-09-19] MEDS: DOCUSATE SODIUM/SENNA 50/8.6MG TAB PO SCH (19:30)
[2022-09-19 19:53] LABS: BUN Creatinine Ratio 29.8 (10-20); Calcium 8.7 mg/dl (8.5-10.1); Creatinine Clr Calc Pharmacy 44.5 ml/min; Est GFR (African American) 43.2 ml/min; Est GFR (Non-African American) 37.3 ml/min; Phosphorus 3.4 mg/dl (2.5-4.9); Potassium 4.3 mmol/L (3.5-5.1)
[2022-09-19 20:46] LABS: Troponin I High Sensitivity 46.4 pg/ml (0-20)
[2022-09-19] MEDS: CEFEPIME 2,000 MG in SYRINGE 0 ML IV SCH (20:52)
[2022-09-19] MEDS: NORTRIPTYLINE HCL 25 MG CAP PO SCH (20:53)
[2022-09-19] MEDS: PANTOprazole 40 MG in SYRINGE 0 ML IV SCH (20:53)
[2022-09-19] MEDS ORDERED: DAPTOmycin 450 MG in SYRINGE 0 ML IV SCH (21:00)
[2022-09-19] MEDS ORDERED: ICU Protocol for HYPERglycemia SCH (21:00)
[2022-09-19] MEDS: [UNRECOGNIZED DRUG - REMARK] SCH ×2 (21:14→21:21)
[2022-09-19] MEDS ORDERED: D5W AND LACTATED RINGERS 1,000 ML IV SCH (21:15)
[2022-09-19] MEDS: D5W AND LACTATED RINGERS 1,000 ML IV SCH (21:25)
[2022-09-19 23:42] LABS: Base Excess VBG 1.5 mEq/L; HCO3 VBG 28 mmol/L; Oxygen Saturation VBG < 60.0 %; PCO2 VBG 49 mmHg (38-50); PO2 VBG 20 mmHg; pH VBG 7.36 (7.36-7.41)
[2022-09-19] MEDS: LABETALOL HCL IV 5 MG/ML 20ML IV PRN (23:45)
[2022-09-20 00:08] LABS: BUN Creatinine Ratio 32.5 (10-20); Calcium 8.6 mg/dl (8.5-10.1); Creatinine Clr Calc Pharmacy 51.3 ml/min; Est GFR (African American) 51.4 ml/min; Est GFR (Non-African American) 44.3 ml/min; Phosphorus 3.1 mg/dl (2.5-4.9); Potassium 4.3 mmol/L (3.5-5.1)
[2022-09-20] MEDS ORDERED: LANTUS PER UNIT CHARGE SQ SCH ×2 (02:45→21:00)
[2022-09-20] MEDS ORDERED: LANTUS PER UNIT CHARGE SQ ONE (02:45)
[2022-09-20 03:43] LABS: BUN Creatinine Ratio 32.7 (10-20); Calcium 8.3 mg/dl (8.5-10.1); Creatinine Clr Calc Pharmacy 54.8 ml/min; Est GFR (African American) 55.6 ml/min; Magnesium 1.9 mg/dl (1.7-2.4); Phosphorus 3.4 mg/dl (2.5-4.9); Potassium 4.4 mmol/L (3.5-5.1)
[2022-09-20] MEDS ORDERED: [UNRECOGNIZED DRUG - REMARK] ONE (05:00)
[2022-09-20] MEDS: D5W AND LACTATED RINGERS 1,000 ML IV SCH (05:38)
[2022-09-20] MEDS: INSULIN ASPART PER UNIT SC SCH ×5 (06:27→20:16)
[2022-09-20 07:48] LABS: Troponin I High Sensitivity 68.4 pg/ml (0-20)
[2022-09-20 07:50] LABS: BUN Creatinine Ratio 31.7 (10-20); Calcium 8.4 mg/dl (8.5-10.1); Creatinine Clr Calc Pharmacy 56.7 ml/min; Magnesium 1.8 mg/dl (1.7-2.4); Phosphorus 2.8 mg/dl (2.5-4.9); Potassium 4.7 mmol/L (3.5-5.1)
[2022-09-20] MEDS: CEFEPIME 2,000 MG in SYRINGE 0 ML IV SCH (07:54)
[2022-09-20] MEDS: PANTOprazole 40 MG in SYRINGE 0 ML IV SCH (07:54)
[2022-09-20] MEDS: NORTRIPTYLINE HCL 25 MG CAP PO SCH ×2 (07:54→20:15)
[2022-09-20] MEDS: DOCUSATE SODIUM/SENNA 50/8.6MG TAB PO SCH (07:55)
--- NOTE | 2022-09-20 07:58 | Critical Care Progress Note ---
Date of Service September 20, 2022 Assessment & Plan (1) HHNC (hyperglycemic hyperosmolar nonketotic coma): (2) Diabetes: (3) Hyperlipidemia: (4) Colitis: (5) Anemia: (6) CVA (cerebral infarction): Plan Reason Critically Ill: 67 YOM admitted for elevated glucose, hyponatremia, l eukocytosis. Concern for DKA by admitting team- appears more consistent with HHNS in the setting of likely bacterial infection with possible source at this time as left feet ulcerations. Neuro - Metabolic encephalopathy, HX of CVA in 2016 without residual effects CAM ICU: Negative - Support encephalopathy with insulin, IVF, and abx for likely bacterial infection Cardiac - HTN, HLD, Elevated HScTNI no acute adjustment in medications needed, not vasopressor requirement - HScTNI likely demand in the setting of CKD- no chest pain or ST elev ation/dynamic changes- trend follow renal indices Respiratory - No acute needs GI - N/V, epigastric pain - send lipase with elevated glucose, epigastric pain, loss of appetitie- no evidence of CT scan however that is only 1/3 criteria for pancreatitis - IVF supportive care at this time RENAL/LYTES - DORITA II on CKD III, HYPOnatremia, AGA acidosis, Hyperkalemia - Edouard pre-renal elevation of BUN and [employer]- follow daily with BMP following volume replacement - Hyponatremia in the setting of elevated glucose- corrects to 135 - follow continue with balance crystalloid resuscitation - serum osmo and urine osmo pending - Hyperkalemia likely related to acidosis, APRIL- follow q4 - should improve with volume and insulin infusion - AGAP -16 - likely HHNS - Electrolyte protocol - UA negative no acute needs- 1 ketone 3+ glucose Ulcerative Colitis hx - Hold immunosuppression medications at this time ENDO - HHNS, DM - PH 7.3, Gap 16, HCO3 20- likely HHNS with noticeable elevation of glucose to 792 with preserved PH and Hco3 - Volume resuscitation - osmo pending HEME - RA, UC - hold hydroxychloroquine and EMbrel until bacterial infection identified and treated ID - Diabetic foot ulceration without evidence of osteo - Continue Cefepime/stop vancomycin add datpo- MRSA swab pending - Wound care consultation - hemodynamically stable and lactate not elevated- follow LINES/IV ACCESS - PIV Continue use of these lines DVT PROPHYLAXIS - SCDS, Heparin 5000 units subq q tid DISPO: Stable for downgrade out of ICU Admission and Anticipated Discharge Date Admission Date: September 19, 2022 Subjective Feels improved compared to yesterday Review of Systems Review of Systems: Reports he occasionally has bleeding of his left lower foot. No fevers or chills. Physical Exam Physical Exam: General: Alert. nontoxic. Skin: Warm, dry, Head: Atraumatic Ears, nose, mouth and throat: airway patent Cardiovascular: Normal peripheral perfusion Respiratory: no respiratory distress Gastrointestinal: Non distended Musculoskeletal: No deformity Results & Data Results & Data ([facility]) Vital Signs (Past 12 Hours) Vital Signs Pulse Resp BP Pulse Ox Pulse Ox O2 Del Method 09/20/22 06:00 77 14 163/90 H 97 09/20/22 05:01 80 14 162/99 H 96 09/20/22 04:00 76 16 124/66 94 09/20/22 03:00 74 16 142/72 H 97 09/20/22 02:00 71 18 159/85 H 97 09/20/22 01:00 71 17 156/96 H 97 09/20/22 00:43 95 Room Air 09/20/22 00:37 76 09/20/22 00:00 65 16 127/68 96 09/19/22 23:00 75 16 188/135 H 96 09/19/22 22:00 77 16 185/101 H 100 09/19/22 21:00 75 24 168/91 H 100 09/19/22 20:00 75 14 175/107 H 98 Critical Care Results & Data Vital Signs (Past 12 Hours) Vital Signs Pulse Resp BP Pulse Ox Pulse Ox O2 Del Method 09/20/22 06:00 77 14 163/90 H 97 09/20/22 05:01 80 14 162/99 H 96 09/20/22 04:00 76 16 124/66 94 09/20/22 03:00 74 16 142/72 H 97 09/20/22 02:00 71 18 159/85 H 97 09/20/22 01:00 71 17 156/96 H 97 09/20/22 00:43 95 Room Air 09/20/22 00:37 76 09/20/22 00:00 65 16 127/68 96 09/19/22 23:00 75 16 188/135 H 96 09/19/22 22:00 77 16 185/101 H 100 09/19/22 21:00 75 24 168/91 H 100 09/19/22 20:00 75 14 175/107 H 98 Lab & Micro Results (Past 24 Hours) No Data to Display Na 135 mmol/L (136-145) L 09/21/22 K 3.6 mmol/L (3.5-5.1) 09/21/22 Cl 103 mmol/L (98-107) 09/21/22 CO2 29 mmol/L (21-32) 09/21/22 Anion Gap 3 (3-11) 09/21/22 BUN 23 mg/dl (6-23) 09/21/22 Creatinine 1.08 mg/dl (0.6-1.4) 09/21/22 Estimated GFR ( Amer) 80.7 ml/min 09/21/22 Estimated GFR (Non-Af Amer) 69.7 ml/min 09/21/22 BUN/Creatinine Ratio 21.3 (10-20) H 09/21/22 Glu 119 mg/dl (70-99(Fasting)) H 09/21/22 Ca 8.4 mg/dl (8.5-10.1) L 09/21/22 Calcium Level 8.4 mg/dl (8.5-10.1) L 09/21/22 11:34 Diagnostic Findings (Past 24 Hours) Chest X-Ray 09/19/22 13:27 XR chest 1V portable CLINICAL HISTORY: Sepsis TECHNIQUE: Single frontal radiograph of the chest was obtained. Comparison: Comparison is made to chest radiograph 06/08/2022 FINDINGS: No lines and tubes are seen. The cardiomediastinal silhouette is normal. The lungs are clear. No evidence of pleural effusion or pneumothorax. IMPRESSION: No acute abnormalities and in particular no evidence of pneumonia. ACT 112: Negative or not required by law. Electronically signed by: Dane Colmenares M.D. 09/19/2022 2:18 PM Foot X-Ray 09/19/22 13:27 XR foot LT min 3V routine CLINICAL HISTORY: Left foot infection. COMPARISON: None FINDINGS: Alignment of the left foot is anatomic. Tarsometatarsal joints are intact. There is no acute fracture. There is no evidence for acute osteomyelitis within the left foot. Subtle lucency projecting over the lateral left midfoot could reflect gas from a wound. Vascular calcification is incidentally noted. 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 IMPRESSION: No acute fracture. No evidence for acute osteomyelitis within the left foot. ACT 112: Negative or not required by law. Electronically signed by: Gerardo Patterson M.D. 09/19/2022 2:41 PM Abdomen/Pelvis CT 09/19/22 15:03 CT OF THE ABDOMEN AND PELVIS WITHOUT CONTRAST CLINICAL HISTORY: Abdominal pain, nausea and vomiting. COMPARISON STUDY: CT of the abdomen and pelvis February 27, 2017. TECHNIQUE: Axial images of the abdomen and pelvis were obtained without IV contrast. Images were reviewed in the axial, sagittal, and coronal planes. Automated exposure control was utilized for the study. A dose lowering technique was utilized adhering to the principles of ALARA. FINDINGS: Old left-sided rib fractures are incidentally noted. A 1.1 cm subpleural left lower lobe nodule on image 85 of [address] of February 27, 2017. This likely contains macroscopic fat and is suggestive of a hamartoma. This is benign. Mild circumferential wall thickening of the distal esophagus is noted. No pneumatosis, free air or portal venous gas is present. No hepatic lesions are identified on unenhanced exam. There is hepatic steatosis. Unenhanced images of the spleen, adrenal glands, right kidney and pancreas are unremarkable. Several left renal calculi measure up to 4 mm. There are no ureteral calculi. There is no hydronephrosis. Abdominal aorta is ectatic, measuring 2.8 cm in caliber. A moderate amount of stool within the colon and rectum is present. There is no evidence for a bowel obstruction. Colonic diverticulosis is present. No evidence for acute diverticulitis. The appendix is normal. There is no ascites or lymphadenopathy. No fluid collection is identified. No acute fracture within the visualized skeletal structures is present. There is mild nodularity of the subcutaneous tissues of the left anterior abdominal wall. This could be related to injections or represent a small contusion. IMPRESSION: 1. Left nephrolithiasis. No ureteral calculi or hydronephrosis. 2. Mild distal esophageal circumferential wall thickening. This is nonspecific but may reflect esophagitis. 3. No bowel obstruction. No bowel wall thickening on unenhanced exam. Moderate amount of stool within the colon and rectum. 4. Hepatic steatosis. ACT 112: Negative or not required by law. Electronically signed by: Gerardo Patterson M.D. 09/19/2022 5:[address] 09/19/22 15:03 CT SCAN OF THE LEFT FOOT WITHOUT IV CONTRAST CLINICAL HISTORY: Diabetic foot wound. COMPARISON STUDY: Radiographs of the left foot dated 09/19/2022. TECHNIQUE: CT scan of the left foot is performed from the ankle to the base of the foot. Images are reviewed in the axial, sagittal, and coronal planes. IV contrast was not administered for this examination. A dose lowering technique was utilized adhering to the principles of ALARA. CT DOSE: 183.21 mGy.cm FINDINGS: The skeletal structures are osteopenic. No acute fracture is seen. The ankle mortise is intact noting degenerative change at the tibiotalar articulation. There is no evidence of osteochondral defect in the talar dome. There are tiny dorsal and plantar calcaneal enthesophytes. No bony erosion or periostitis is identified. Degenerative change is seen at the first metatarsophalangeal joint and throughout the mid foot. No soft tissue gas is seen. The Achilles tendon is intact as visualized. There is generalized atrophy of the regional musculature. Atherosclerotic calcification is seen throughout the regional vessels. Mild soft tissue swelling is present throughout the foot. There is induration along the plantar aspect of the lateral mid foot at the base of the fifth metatarsal. No organized/drainable fluid collection is seen to suggest abscess. IMPRESSION: 1. No acute bony abnormality is identified. 2. Osteopenia and degenerative change as above. 3. There is mild soft tissue edema throughout the forefoot as above. 4. No soft tissue gas or organized fluid collection is identified. ACT 112: Negative or not required by law. Dictated: 09/19/2022 5:09 PM Transcribed: 09/19/2022 5:26 PM Dee [id number] [email or web address] Electronically signed by: Isra Webster M.D. 09/19/2022 5:[address] 09/19/22 15:03 CT SCAN OF THE BRAIN WITHOUT IV CONTRAST CLINICAL HISTORY: Change in mental status. Generalized weakness. COMPARISON STUDY: CT of the brain dated 02/23/2021. TECHNIQUE: Unenhanced axial CT scan of the brain is performed from the vertex to the skull base. A dose lowering technique was utilized adhering to the principles of ALARA. CT DOSE: 884.08 mGy.cm FINDINGS: Brain parenchyma: A focus of left frontal encephalomalacia is consistent with a remote insult. There is age-related involutional change noting mild subcortical and periventricular microangiopathic disease. There is no hemorrhage, mass effect, or evidence of acute territorial ischemia by CT criteria. Chronic lacunar infarcts are noted in the left basal ganglia and the right cerebellar hemisphere. Flores-white matter differentiation is preserved. No extra-axial fluid collection is seen. Ventricles, sulci, cisterns: Prominent secondary to involutional change. Intracranial vasculature: There is atherosclerotic calcification of the cavernous carotid and vertebral arteries. Calvarium: There is postsurgical change from left-sided craniotomy. Sinuses and mastoids: The visualized paranasal sinuses are clear. The mastoid air cells are well pneumatized. Orbits: The bony orbits are grossly intact. IMPRESSION: Chronic and postsurgical changes as above with no hemorrhage, mass effect, or evidence of acute territorial ischemia by CT criteria. ACT 112: Negative or not required by law. Electronically signed by: Isra Webster M.D. 09/19/2022 5:08 PM I & O Totals 24 Hours 09/19/22 09/20/22 09/21/22 06:59 06:59 06:59 Intake Total 3836.490 / 3836.490 Output Total 700 / 700 Balance 3136.490 / 3136.490 Cumulative 09/19/22 13:01 thru 09/20/22 06:49 Intake Total 3836.490 Output Total 700 Balance 3136.490 RT Ventilator Mngmt (Last Documented) Ventilator Ordered Settings Respiratory Rate 14 09/20/22 06:00 Ventilator - PT Measurements Respiratory Rate 14 Coding Level of Care Code 01622 Subseq Hosp Care Lvl 3 Diagnoses HHNC (hyperglycemic hyperosmolar nonketotic coma) E11.01 Diabetes E11.9 Hyperlipidemia E78.5 Colitis K52.9 Anemia D64.9 CVA (cerebral infarction) I63.9
[2022-09-20] MEDS ORDERED: HEPARIN SOD 5,000 UNIT/0.5 ML VIAL SQ SCH (09:00)
--- NOTE | 2022-09-20 11:20 | Pharmacy Report ---
Pharmacy Glycemic Short Note 2 - Date of Service September 20, 2022 - Glycemic Short BSG Results (Last 24 hours): 09/19/22 09/19/22 09/19/22 13:35 16:35 18:12 Glucose 792 H* 545 H* POC Glucose 419 H* 09/19/22 09/19/22 09/19/22 19:05 19:05 19:25 Glucose Cancelled 310 H* POC Glucose 272 H 09/19/22 09/19/22 09/19/22 20:59 22:21 22:53 Glucose 127 H POC Glucose 209 H 129 H 09/19/22 09/20/22 09/20/22 23:34 01:08 02:38 Glucose POC Glucose 181 H 132 H 172 H 09/20/22 09/20/22 09/20/22 03:00 06:16 06:18 Glucose 194 H POC Glucose 329 H* 291 H 09/20/22 09/20/22 09/20/22 06:53 07:15 09:05 Glucose 334 H* POC Glucose 317 H* 279 H 09/20/22 10:59 Glucose POC Glucose 191 H OUTPATIENT ANTIDIABETIC REGIMEN: * Lantus 24 units SC AM + 18 units SC PM * Regular insulin 6 units SC BIDM * Metformin 500 mg PO BIDM * HbA1c: pending ASSESSMENT: * 67 yo M presented from [facility] for altered mental status and hyperglycemia. Pharmacy was consulted to assist with inpatient glycemic management. Most recent A1c from 06/2021 was 10.5%. Patient is on broad spectrum abx for possible diabetic foot infection. * Questionable HHS vs straight hyperglycemia. Presented with mild confusion, serum BSG of 792 mg/dL, CO2 20 mmol/L, Anion Gap 16, pH 7.33, 1+ ketones in urine. Effective serum osmo was < 320 mOsm which points more towards hyperglycemia rather than HHS; however, this lab was drawn following at least 2 L of fluid being given so it may not be accurate. * Started on an insulin drip at 10 units/hr with a 9 unit bolus initially. BSGs quickly decreased and patient received approximately 70 units via the drip overnight. * Was given a Lantus dose this morning and was transition off the drip around 5 AM. * BSGs this AM were 291 and 317 mg/dL. * Patient received 6 units of Novolog for BSG of 291 followed by 19 units of Novolog for BSG of 317 + breakfast carb coverage. Expecting these doses to stack given they were administered only an hour apart. * Lunchtime BSG was 191 mg/dL. * Tighten Novolog to reflect weight/stress of 3. * Will stress outpatient dose of Lantus. PLAN FOR INPATIENT GLYCEMIC CONTROL: * Hold outpatient oral diabetes medications * Basal insulin * Lantus 24 units SC BID * Bolus insulin * NovoLog per scale ACHS or Q6hrs while NPO * Goal Range: Low 110 mg/dL - High 140 mg/dL * Correction Factor: 20 mg/dL/unit * Nutritional / Prandial insulin per carb ratio of 1 unit per 6 grams CHO consumed
[2022-09-20 11:40] LABS: BUN Creatinine Ratio 27.7 (10-20); Calcium 8.6 mg/dl (8.5-10.1); Creatinine Clr Calc Pharmacy 57.1 ml/min; Est GFR (African American) 58.5 ml/min; Est GFR (Non-African American) 50.5 ml/min; Magnesium 1.8 mg/dl (1.7-2.4); Phosphorus 1.8 mg/dl (2.5-4.9)
--- NOTE | 2022-09-20 12:46 | Electrocardiogram Report ---
Test Reason : Blood Pressure : / mmHG Vent. Rate : 086 BPM Atrial Rate : 086 BPM P-R Int : 234 ms QRS Dur : 110 ms QT Int : 384 ms P-R-T Axes : 068 065 065 degrees QTc Int : 459 ms Sinus rhythm with 1st degree A-V block Otherwise normal ECG When compared with ECG of 08-JUN-2022 07:58, FL interval has increased Confirmed by Surinder Coello ([id number]) on 09/20/2022 12:45:41 PM Referred By: [facility] Confirmed By:Michael Coello
[2022-09-20] MEDS: LABETALOL HCL IV 5 MG/ML 20ML IV PRN (16:30)
[2022-09-20] MEDS ORDERED: cefTRIAXone SODIUM 1,000 MG in DEXTROSE 5% AD-VAN 50 ML IV SCH (17:30)
--- NOTE | 2022-09-20 17:37 | Hospitalist Progress Note ---
Date of Service September 20, 2022 Assessment & Plan (1) HHNC (hyperglycemic hyperosmolar nonketotic coma): Plan: HHS -Improving Currently on short acting/long-acting insulin regimen Apparently patient did not receive insulin for the last few days -Pending A1c -Apparently patient was taking Lantus 13 at night and NovoLog sliding scale poor control -Of insulin drip -Started on 50 units of Lantus every morning +7 units of NovoLog before meals -Hyperosmolar hyper volume hyponatremia Improving Sodium is 132 today (2) HTN (hypertension): Plan: Uncontrolled Add Norvasc 10 mg daily Add carvedilol 12.5 mg daily (3) Hyperlipidemia: Plan: Continue statins (4) CVA (cerebral infarction): Plan: Add aspirin 81 mg daily Check lipid profile (5) Diabetic foot ulcer: Plan: Left fifth digit diabetic cellulitis with concern for osteo- -CT did not show evidence of osteomyelitis Switched to Rocephin We may ask for ID consult tomorrow Left lateral fifth digit with acute erythema/warmth/open ulceration (6) APRIL (acute kidney injury): Plan: Baseline creatinine 1.2-1.4 Presented with creatinine around 2 Continue IV fluid Improving BMP tomorrow Admission and Anticipated Discharge Date Admission Date: September 19, 2022 Subjective Hyperosmolar nonketotic hyperglycemia improving, currently on scheduled short acting and long-acting insulin, continue IV fluid, started on diabetic diet, however left fifth digit ulcer, culture pending, Physical Exam Physical Exam: General: Alert. nontoxic. Skin: Warm, dry, Head: Atraumatic Ears, nose, mouth and throat: airway patent Cardiovascular: Normal peripheral perfusion Respiratory: no respiratory distress Gastrointestinal: Non distended Musculoskeletal: No deformity Results & Data Results & Data ([facility]) Vital Signs (Past 12 Hours) Vital Signs Temp Pulse Resp BP Pulse Ox O2 Del Method 09/20/22 16:36 36.7 C 09/20/22 16:00 85 16 96 09/20/22 16:00 191/96 H 09/20/22 15:00 83 15 94 09/20/22 14:00 86 17 96 09/20/22 14:00 160/86 H 09/20/22 13:00 137/85 09/20/22 13:00 90 19 97 09/20/22 12:01 166/103 H 09/20/22 12:01 104 H 20 97 12/27/22 11:00 157/103 H 09/20/22 11:00 90 24 95 09/20/22 10:01 84 21 94 09/20/22 10:01 175/100 H 09/20/22 10:00 83 19 98 09/20/22 09:00 89 17 95 09/20/22 09:00 145/84 H 09/20/22 08:00 83 16 95 Room Air 09/20/22 08:00 161/89 H 09/20/22 07:00 89 17 98 09/20/22 07:00 167/85 H 09/20/22 08:24 36.9 C 09/20/22 06:00 77 14 163/90 H 97 PG Care Time/CCT Total # of Minutes Spent Total Time Spent with Patient: Total time spent is greater than 50% in coordination of care (as documented) at patient's floor/unit and/or counseling patient: Coding Level of Care Code 98203 Subseq Hosp Care Lvl 3 Diagnoses HHNC (hyperglycemic hyperosmolar nonketotic coma) E11.01 HTN (hypertension) I10 Hypertension type: unspecified Hyperlipidemia E78.5 CVA (cerebral infarction) I63.9 Diabetic foot ulcer E11.621; L97.509 APRIL (acute kidney injury) N17.9 (1) HTN (hypertension) Hypertension type: unspecified Qualified Code(s): I10 - Essential (primary) hypertension
[2022-09-20] MEDS ORDERED: cefTRIAXone SODIUM 2,000 MG in DEXTROSE 5% 50 ML IV SCH (18:15)
[2022-09-20] MEDS: carvediloL 12.5 MG TAB PO SCH (20:13)
[2022-09-20] MEDS: amLODIPine BESYLATE 5 MG TAB PO SCH (20:13)
[2022-09-20] MEDS: LANTUS PER UNIT CHARGE SQ SCH (20:14)
[2022-09-20] MEDS: SODIUM CHLORIDE 0.9% 1000ML 1,000 ML IV SCH (20:17)
[2022-09-21] MEDS: SODIUM CHLORIDE 0.9% 1000ML 1,000 ML IV SCH ×3 (03:13→17:08)
[2022-09-21 05:43] LABS: Chol HDL Ratio 2.6 (0-5)
[2022-09-21] MEDS ORDERED: INSULIN ASPART PER UNIT SC SCH (07:30)
[2022-09-21] MEDS: INSULIN ASPART PER UNIT SC SCH ×4 (07:33→20:10)
[2022-09-21] MEDS: LANTUS PER UNIT CHARGE SQ SCH (07:34)
[2022-09-21] MEDS: ENOXAPARIN INJ 40 MG/0.4 ML SYR SQ SCH (07:34)
[2022-09-21] MEDS: ATORVASTATIN 10 MG TAB PO SCH (07:35)
[2022-09-21] MEDS: NORTRIPTYLINE HCL 25 MG CAP PO SCH ×2 (07:35→20:52)
[2022-09-21] MEDS: amLODIPine BESYLATE 5 MG TAB PO SCH (07:35)
[2022-09-21] MEDS: ASPIRIN 81 MG ECTAB PO SCH (07:35)
[2022-09-21] MEDS: carvediloL 12.5 MG TAB PO SCH ×2 (07:35→20:52)
[2022-09-21] MEDS: DOCUSATE SODIUM/SENNA 50/8.6MG TAB PO SCH (07:35)
[2022-09-21 07:51] LABS: Estimated Average Glucose 301 mg/dl; Hemoglobin A1C 12.1 % (4.5-5.6)
[2022-09-21] MEDS ORDERED: LANTUS PER UNIT CHARGE SQ SCH ×2 (08:00→21:00)
[2022-09-21 12:09] LABS: BUN Creatinine Ratio 21.3 (10-20); Calcium 8.4 mg/dl (8.5-10.1); Creatinine Clr Calc Pharmacy 74.5 ml/min; Est GFR (African American) 80.7 ml/min; Est GFR (Non-African American) 69.7 ml/min; Potassium 3.6 mmol/L (3.5-5.1)
--- NOTE | 2022-09-21 14:41 | Pharmacy Report ---
Pharmacy Glycemic Short Note 2 - Date of Service September 21, 2022 - Glycemic Short BSG Results (Last 24 hours): 09/20/22 09/20/22 09/21/22 16:15 20:13 07:08 Glucose POC Glucose 252 H 297 H 144 H 09/21/22 09/21/22 09/21/22 07:23 11:32 11:34 Glucose 119 H POC Glucose 153 H 110 H OUTPATIENT ANTIDIABETIC REGIMEN: * Lantus 24 units SC AM + 18 units SC PM * Regular insulin 6 units SC BIDM * Metformin 500 mg PO BIDM * HbA1c: 12.1% (09/21/22) ASSESSMENT: 09/21: * Patient received a total of 114 units of insulin yesterday, 48 units basal + 66 units bolus. BSGs were: [phone] mg/dL. * Fasting BSG improved to 153 mg/dL this AM. * Given significant drop in fasting, will reduce basal slightly today. * Tightened CF/CR as well this AM. * Ceftriaxone started for possible cellulitis. 09/20: * 67 yo M presented from [facility] for altered mental status and hyperglycemia. Pharmacy was consulted to assist with inpatient glycemic management. Most recent A1c from 06/2021 was 10.5%. Patient is on broad spectrum abx for possible diabetic foot infection. * Questionable HHS vs straight hyperglycemia. Presented with mild confusion, serum BSG of 792 mg/dL, CO2 20 mmol/L, Anion Gap 16, pH 7.33, 1+ ketones in urine. Effective serum osmo was < 320 mOsm which points more towards hyperglycemia rather than HHS; however, this lab was drawn following at least 2 L of fluid being given so it may not be accurate. * Started on an insulin drip at 10 units/hr with a 9 unit bolus initially. BSGs quickly decreased and patient received approximately 70 units via the drip overnight. * Was given a Lantus dose this morning and was transition off the drip around 5 AM. * BSGs this AM were 291 and 317 mg/dL. * Patient received 6 units of Novolog for BSG of 291 followed by 19 units of Novolog for BSG of 317 + breakfast carb coverage. Expecting these doses to stack given they were administered only an hour apart. * Lunchtime BSG was 191 mg/dL. * Tighten Novolog to reflect weight/stress of 3. * Will stress outpatient dose of Lantus. PLAN FOR INPATIENT GLYCEMIC CONTROL: * Hold outpatient oral diabetes medications * Basal insulin * Lantus 20 units SC BID * Bolus insulin * NovoLog per scale ACHS or Q6hrs while NPO * Goal Range: Low 110 mg/dL - High 140 mg/dL * Correction Factor: 15 mg/dL/unit * Nutritional / Prandial insulin per carb ratio of 1 unit per 4 grams CHO consumed
[2022-09-21] MEDS ORDERED: VANCOMYCIN CONSULT ACTIVE PRN (16:37)
[2022-09-21] MEDS ORDERED: VANCOMYCIN HCL 1,000 MG in SODIUM CHLORIDE 0.9% 250 ML IV SCH (16:45)
[2022-09-21] MEDS ORDERED: PIPERACILLIN/TAZOBACTAM 4.5 GM in DEXTROSE 5% 100 ML IV ONE (17:00)
[2022-09-21] MEDS ORDERED: VANCOMYCIN HCL 2,000 MG in SODIUM CHLORIDE 0.9% 500 ML IV ONE (17:00)
--- NOTE | 2022-09-21 17:53 | Orthopedic Consultation ---
Date of Consultation September 21, 2022 Assessment & Plan (1) Diabetic foot ulcer: Patient was seen and examined bedside with Dr. Tracey. No acute orthopedic surgical intervention at this time. CT was negative for osteomyelitis. Recommend continuing IV regimen per medicine. Continue with wound care and dres sing changes per nursing/wound care. Tight diabetic control to ensure adequate wound healing. We will continue to follow cultures. Recommend trending ESR and CRP. Patient may follow-up outpatient. Discussed with him that if he is unable to heal wound that he may lose his toe in the future. Patient expressed understanding. Patient may use orthopedic shoe and can weight-bear as tolerated Present on Admission?: Yes Supervising Physician Co-Signing Physician Notes I, Dr. Tracey, saw and examined the patient with my PA and discussed the management with my PA. I reviewed my PAs note and agree with the documented findings and the plan of care I developed. History of Present Illness Reason for Consultation: Left 5th toe infection Attending Physician: Frederick Bagley MD History of Present Illness Pt is a 67 year old male Past medical history significant for diabetes, hypertension, hyperlipidemia, history of CVA, Ulcerative colitis, rheumatoid arthritis, admitted for NC and found to have Left fifth toe wound. He says that the last 2 days the swelling on his toes worsened and it has been more red than usual. He does have some pain with moving his toe. He also has a intact blister on his great toe, plantar surface. He denies any fevers, chills. Allergies Allergy/AdvReac Type Severity Reaction Status Date / Time No Known Allergies Allergy Unverified 12/24/20 10:49 Home Medications Medication Instructions Recorded Confirmed Type aspirin 325 mg tablet 325 mg PO DAILY 10/18/20 02/23/21 History atorvastatin 10 mg tablet 10 mg PO DAILY 10/18/20 02/23/21 History docusate sodium 100 mg tablet 100 mg PO BID 10/18/20 02/23/21 History etanercept 50 mg/mL (1 mL) 50 mg subcut WK 10/18/20 02/23/21 History subcutaneous syringe (Enbrel) folic acid 1 mg tablet 1 mg PO DAILY 10/18/20 02/23/21 History glucagon HCl 1 mg solution for 1 mg subcut DAILY PRN Hypoglycemia 10/18/20 02/23/21 History injection (Glucagon (HCl) Emergency Kit) hydroxychloroquine 200 mg tablet 200 mg PO DAILY 10/18/20 02/23/21 History insulin glargine 100 unit/mL (3 18 unit subcut DAILY 10/18/20 02/23/21 History mL) subcutaneous pen insulin glargine 100 unit/mL (3 24 unit subcut QAM 10/18/20 02/23/21 History mL) subcutaneous pen insulin regular human 100 unit/mL 6 unit subcut BID 10/18/20 02/23/21 History (3 mL) subcutaneous pen (Novolin R Flexpen) metformin 500 mg tablet 500 mg PO BID 10/18/20 02/23/21 History nortriptyline 25 mg capsule 25 mg PO BID 10/18/20 02/23/21 History chlorthalidone 25 mg tablet 25 mg PO DAILY 12/24/20 02/23/21 History cyanocobalamin (vitamin B-12) 1,000 mcg PO DAILY 12/24/20 02/23/21 History 1,000 mcg tablet (Vitamin B-12) Patient History Medical History Colitis CVA (cerebral infarction) (2016) Diabetes HTN (hypertension) Hyperlipidemia Orthostatic hypotension (2016) Syncope (2016) Surgical History S/P craniotomy Surgical history unknown Family History Other Family history non-contributory Social History Smoking Status: Former smoker Tobacco Type: Cigarettes Age Started Using Tobacco: 13; packs per day: 0.5; Smoking End Date: 5 years ago; Second Hand Exposure: No; Do You Dip or Chew Tobacco: No; Tobacco Cessation Education Requested by Patient: No Hx Alcohol Use: No Hx Substance Use: Yes Prescribed Medications: Marijuana Last Used Substance Other:: 2007 Substance Use Type Other:: K2 Preferred Language: Austrian Communication Ability: Effective Statement Clerks Manager Required: No Beliefs That Will Affect Care: None marital status: Current Living Situation: Other Current Living Situation Comment: antoine current occupational status: unemployed Other Information That Helps Us Care for You: No Feels Safe at Home: Yes Safety Concerns: Feels Safe At This Time Assistive Devices: Glasses Review of Systems Review of Systems: Per HPI Physical Exam Physical Exam: Upon examination the patient's left foot there is an intact blister noted on the plantar surface of the great toe with no signs of infection. There is wound noted on the fifth toe with black eschar lateral aspect. No major surrounding erythema. No purulent drainage visible or able to be expressed during exam. Patient has limited motion of toe. Minor swelling noted but no palpable fluctuance. Patient reports sensation to light touch. Results & Data ([facility]) Vital Signs (Past 12 Hours) Vital Signs Temp Pulse Pulse Pulse Resp BP BP 09/21/22 14:53 37.1 C 85 17 118/69 09/21/22 14:47 71 09/21/22 12:14 69 09/21/22 11:24 36.7 C 71 17 117/72 09/21/22 07:34 37.1 C 75 19 177/97 H Pulse Ox O2 Del Method 09/21/22 14:53 94 Room Air 09/21/22 14:47 09/21/22 12:14 09/21/22 11:24 94 Room Air 09/21/22 07:34 93 Room Air Laboratory Results WBC 14 Diagnostic Findings XR foot LT min 3V routine CLINICAL HISTORY: Left foot infection. COMPARISON: None FINDINGS: Alignment of the left foot is anatomic. Tarsometatarsal joints are intact. There is no acute fracture. There is no evidence for acute osteomyelitis within the left foot. Subtle lucency projecting over the lateral left midfoot could reflect gas from a wound. Vascular calcification is incidentally noted. 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 IMPRESSION: No acute fracture. No evidence for acute osteomyelitis within the left foot. CT SCAN OF THE LEFT FOOT WITHOUT IV CONTRAST CLINICAL HISTORY: Diabetic foot wound. COMPARISON STUDY: Radiographs of the left foot dated 09/19/2022. TECHNIQUE: CT scan of the left foot is performed from the ankle to the base of the foot. Images are reviewed in the axial, sagittal, and coronal planes. IV contrast was not administered for this examination. A dose lowering technique was utilized adhering to the principles of ALARA. CT DOSE: 183.21 mGy.cm FINDINGS: The skeletal structures are osteopenic. No acute fracture is seen. The ankle mortise is intact noting degenerative change at the tibiotalar articu lation. There is no evidence of osteochondral defect in the talar dome. There are tiny dorsal and plantar calcaneal enthesophytes. No bony erosion or periostitis is identified. Degenerative change is seen at the first metatarsophalangeal joint and throughout the mid foot. No soft tissue gas is seen. The Achilles tendon is intact as visualized. There is generalized atrophy of the regional musculature. Atherosclerotic calcification is seen throughout the regional vessels. Mild soft tissue swelling is present throughout the foot. There is induration along the plantar aspect of the lateral mid foot at the base of the fifth metatarsal. No organized/drainable fluid collection is seen to suggest abscess. IMPRESSION: 1. No acute bony abnormality is identified. 2. Osteopenia and degenerative change as above. 3. There is mild soft tissue edema throughout the forefoot as above. 4. No soft tissue gas or organized fluid collection is identified.
--- NOTE | 2022-09-21 19:03 | Hospitalist Progress Note ---
Date of Service September 21, 2022 Assessment & Plan (1) HHNC (hyperglycemic hyperosmolar nonketotic coma): Plan: HHS -Improving Currently on short acting/long-acting insulin regimen Apparently patient did not receive insulin for the last few days -Pending A1c -Apparently patient was taking Lantus 13 at night and NovoLog sliding scale poor control -Of insulin drip -Started on 50 units of Lantus every morning +7 units of NovoLog before meals -Hyperosmolar hyper volume hyponatremia Improving Sodium is 132 today 09/21 A1c of 2.8 consider poorly controlled diabetes, currently on basal bolus regimen, serum glucose fairly controlled, currently on diabetic diet, Hyponatremia has improved Acute kidney injury has improved (2) HTN (hypertension): Plan: Uncontrolled Add Norvasc 10 mg daily Add carvedilol 12.5 mg daily 09/21 Blood pressure is controlled right (3) Hyperlipidemia: Plan: Continue statins (4) CVA (cerebral infarction): Plan: Add aspirin 81 mg daily Check lipid profile (5) Diabetic foot ulcer: Plan: Left fifth digit diabetic cellulitis with concern for osteo- -CT did not show evidence of osteomyelitis -Evidence of necrotic tissue in the toe, consult with ID did not recommend amputation or debridement, recommend IV antibiotic, switch to Zosyn and vancomycin, pending wound culture, will consult with ID (6) APRIL (acute kidney injury): Plan: Baseline creatinine 1.2-1.4 Presented with creatinine around 2 Resolved stop IV Admission and Anticipated Discharge Date Admission Date: September 19, 2022 Subjective Patient currently is medically stable, acute kidney injury has resolved, patient has infected left fifth toe, currently on Zosyn and vancomycin, cultures is pending, A1c of 12 consistent with poorly controlled diabetes, consulted by Ortho did not recommend amputation, evidence of necrotic tissue on top of the toe, recommend IV antibiotic therapy, we waiting for culture, will consult ID tomorrow Physical Exam Physical Exam: General: Alert. nontoxic. Skin: Warm, dry, Head: Atraumatic Ears, nose, mouth and throat: airway patent Cardiovascular: Normal peripheral perfusion Respiratory: no respiratory distress Gastrointestinal: Non distended Musculoskeletal: No deformity Results & Data Results & Data ([facility]) Vital Signs (Past 12 Hours) Vital Signs Temp Pulse Pulse Pulse Resp BP BP 09/21/22 14:53 37.1 C 85 17 118/69 09/21/22 14:47 71 09/21/22 12:14 69 09/21/22 11:24 36.7 C 71 17 117/72 09/21/22 07:34 37.1 C 75 19 177/97 H Pulse Ox O2 Del Method 09/21/22 14:53 94 Room Air 09/21/22 14:47 09/21/22 12:14 09/21/22 11:24 94 Room Air 09/21/22 07:34 93 Room Air PG Care Time/CCT Total # of Minutes Spent Total Time Spent with Patient: Total time spent is greater than 50% in coordination of care (as documented) at patient's floor/unit and/or counseling patient: Coding Level of Care Code 97621 Subseq Hosp Care Lvl 3 Diagnoses HHNC (hyperglycemic hyperosmolar nonketotic coma) E11.01 HTN (hypertension) I10 Hypertension type: unspecified Hyperlipidemia E78.5 CVA (cerebral infarction) I63.9 Diabetic foot ulcer E11.621; L97.509 APRIL (acute kidney injury) N17.9 (1) HTN (hypertension) Hypertension type: unspecified Qualified Code(s): I10 - Essential (primary) hypertension
--- NOTE | 2022-09-21 19:37 | Pharmacy Report ---
Pharmacy PK ABX Note - Date of Service September 21, 2022 - Assessment and Plan Assessment 67 year old M receiving VANCOMYCIN for treatment of DIABETIC FOOT UCLER. Pertinent microbiologic data includes: WOUND/BLOOD cultures pending. Day # 1/? of antimicrobial therapy. Plan Vancomycin * Loading dose: 2000 mg IV x 1 * Maintenance dose: 1750 mg IV every hours * Regimen is predicted to achieve target AUC/TESSY of 400-600 mg/L.hr * Trough level ordered for: 09/23/22 @ 0500 Pharmacy will continue to follow and will adjust dose/frequency as necessary. Thank you. Pharmacy has transitioned to AUC monitoring for vancomycin. AUC/TESSY is the preferred PK/PD target and is associated with decreased risk of nephrotoxicity compared to traditional trough targets.
[2022-09-21] MEDS: PIPERACILLIN/TAZOBACTAM 3.375 GM in DEXTROSE 5% 100 ML IV SCH (23:36)
[2022-09-22] MEDS: ACETAMINOPHEN 500 MG TAB PO PRN ×2 (03:47→13:23)
[2022-09-22] MEDS ORDERED: VANCOMYCIN HCL 1,750 MG in SODIUM CHLORIDE 0.9% 500 ML IV SCH (06:00)
[2022-09-22] MEDS: PIPERACILLIN/TAZOBACTAM 3.375 GM in DEXTROSE 5% 100 ML IV SCH ×3 (06:02→23:10)
[2022-09-22] MEDS: ENOXAPARIN INJ 40 MG/0.4 ML SYR SQ SCH (08:14)
[2022-09-22] MEDS: carvediloL 12.5 MG TAB PO SCH ×2 (08:14→20:33)
[2022-09-22] MEDS: ATORVASTATIN 10 MG TAB PO SCH (08:14)
[2022-09-22] MEDS: ASPIRIN 81 MG ECTAB PO SCH (08:14)
[2022-09-22] MEDS: DOCUSATE SODIUM/SENNA 50/8.6MG TAB PO SCH (08:14)
[2022-09-22] MEDS: amLODIPine BESYLATE 5 MG TAB PO SCH (08:14)
[2022-09-22] MEDS: NORTRIPTYLINE HCL 25 MG CAP PO SCH ×2 (08:15→20:33)
[2022-09-22] MEDS: INSULIN ASPART PER UNIT SC SCH ×4 (08:20→20:23)
[2022-09-22] MEDS ORDERED: LANTUS PER UNIT CHARGE SQ SCH ×2 (09:00→21:00)
--- NOTE | 2022-09-22 09:12 | Orthopedic Progress Note ---
Date of Service September 22, 2022 Assessment & Plan (1) Diabetic foot ulcer: Plan: Per nursing his fifth toe has improved since yesterday. He continues to be on IV antibiotics. Gram stain did come back read as final and showed a rare yeast. Superficial wound culture is still pending. No findings of osteomyelitis on CT. He will continue with IV regimen per medicine. He will also continue with dressing changes per nursing and wound care team. I again encouraged patient to monitor his feet daily and advised strongly on controlling blood sugars and adhering to diabetic diet. Failure to due so can result in repeated infections or loss of toes/limbs. He was advised any weightbearing he should be using the orthopedic shoe that is in his room. Patient verbalized understanding and is in agreement with plan. Present on Admission?: Yes Admission and Anticipated Discharge Date Admission Date: September 19, 2022 Supervising Physician Co-Signing Physician Notes I, Dr. Tracey, saw and examined the patient with my PA and discussed the management with my PA. I reviewed my PAs note and agree with the documented findings and the plan of care I developed. Subjective Patient is a 67-year-old male who was seen this a.m. He was alert and oriented in the bed. BRIDGETTE Hoang was present during the visit as well as 2 correctional officers. He reports he has pain in the left fifth toe and rates as 5/10. He denies any fever, chills, night sweats, chest pain or shortness of breath. He denies any paresthesia in the fifth toe or other toes. He denies any paresthesia in his feet. He offers no concerns this morning Review of Systems Review of Systems: Please refer to HPI Physical Exam Physical Exam: General: Patient is alert and oriented x3 answering questions appropriately pleasant no acute distress Musculoskeletal/integumentary: Patient's dressing was removed by BRIDGETTE Hoang. The left fifth toe has eschar tissue negative for any active drainage there is dried drainage on dressing. Negative for erythema or edema at this time. Patient has sensation to light touch over all toes including the fifth toe. Patient is limited with mobility of the left for the toe. There is an outline on the left great toe of the blister negative for any fluctuance or pain with palpation. Patient has what appears to be old blisters over the dorsal joints of the toes per patient this has been present since COVID. Dorsal pedis pulses 3+ dressing was reapplied by nursing. Results & Data ([facility]) Vital Signs (Past 12 Hours) Vital Signs Temp Pulse Pulse Resp BP Pulse Ox O2 Del Method 09/22/22 08:17 37.1 C 69 18 162/85 H 95 Room Air 09/22/22 06:59 69 09/22/22 03:29 37.0 C 67 18 153/83 H 95 Room Air 09/22/22 00:00 73 Laboratory Results Laboratory Results WBC 14.00 K/ul (4.8-10.8) H 09/19/22 13:35 RBC 4.16 M/uL (4.63-6.08) L 09/19/22 13:35 Hgb 12.5 g/dl (14.0-18.0) L 09/19/22 13:35 Hct 36.8 % (40.1-51.0) L 09/19/22 13:35 MCV 88.5 fL (80.0-100.0) 09/19/22 13:35 MCH 30.0 pg (25.0-34.0) 09/19/22 13:35 MCHC 34.0 g/dL (32.0-36.0) 09/19/22 13:35 RDW Std Deviation 39.7 fL (36.4-46.3) 09/19/22 13:35 RDW Coeff of Vidal 12.3 % (11.5-14.5) 09/19/22 13:35 Plt Count 188 K/uL (130-400) 09/19/22 13:35 MPV 12.1 fL (9.4-12.4) 09/19/22 13:35 Neutrophils % (Manual) 77 % 09/19/22 13:35 Lymphocytes % (Manual) 16 % 09/19/22 13:35 Monocytes % (Manual) 7 % 09/19/22 13:35 Basophils % (Manual) 1 % 09/19/22 13:35 Neutrophils # (Manual) 10.78 K/uL (1.4-6.5) H 09/19/22 13:35 Total Absolute Neuts 10.78 K/uL (1.4-6.5) H 09/19/22 13:35 Lymphocytes # (Manual) 2.24 K/uL (1.2-3.4) 09/19/22 13:35 Total Abs Lymphocytes 2.24 K/uL (1.2-3.4) 09/19/22 13:35 Monocytes # (Manual) 0.98 K/uL (0.24-0.82) H 09/19/22 13:35 Basophils # (Manual) 0.14 K/uL (0-0.2) 09/19/22 13:35 Toxic Vacuolation 1+ 09/19/22 13:35 PT 11.7 Seconds (9.0-12.0) 09/19/22 13:35 INR 1.1 (0.9-1.1) 09/19/22 13:35 ABG pH 7.33 (7.35-7.45) L 09/19/22 14:18 ABG pCO2 38 mmHg (35-46) 09/19/22 14:18 ABG pO2 85 mmHg (80-95) 09/19/22 14:18 ABG HCO3 20 mmol/L (19-24) 09/19/22 14:18 ABG O2 Saturation 98.0 % (90-95) H 09/19/22 14:18 ABG Base Excess -5.4 mEq/L (-9-1.8) 09/19/22 14:18 Valentin Test POS (Pos) 09/19/22 14:18 VBG pH 7.41 (7.36-7.41) 09/20/22 10:52 VBG pCO2 49 mmHg (38-50) 09/19/22 22:53 VBG pO2 20 mmHg 09/19/22 22:53 VBG HCO3 28 mmol/L 09/19/22 22:53 VBG O2 Saturation < 60.0 % 09/19/22 22:53 VBG Base Excess 1.5 mEq/L 09/19/22 22:53 Oxygen Given ROOM AIR 09/19/22 14:18 Sodium 133 mmol/L (136-145) L 09/22/22 10:04 Potassium 3.6 mmol/L (3.5-5.1) 09/22/22 10:04 Chloride 103 mmol/L (98-107) 09/22/22 10:04 Carbon Dioxide 27 mmol/L (21-32) 09/22/22 10:04 Anion Gap 3 (3-11) 09/22/22 10:04 BUN 22 mg/dl (6-23) 09/22/22 10:04 Creatinine 1.27 mg/dl (0.6-1.4) 09/22/22 10:04 Est Cr Clr Drug Dosing 64.4 ml/min 09/22/22 10:04 Est GFR ( Amer) 66.4 ml/min 09/22/22 10:04 Est GFR (Non-Af Amer) 57.3 ml/min 09/22/22 10:04 BUN/Creatinine Ratio 17.3 (10-20) 09/22/22 10:04 Glucose 359 mg/dl (70-99(Fasting)) H* 09/22/22 10:04 POC Glucose 75 mg/dl (70-99) 09/22/22 14:52 Estimat Average Glucose 301 mg/dl 09/21/22 04:20 Hemoglobin A1c 12.1 % (4.5-5.6) H 09/21/22 04:20 Osmolality 305 mOsm/kg (280-300) H 09/19/22 19:05 Lactate 1.9 mmol/L (0.4-2.0) 09/19/22 13:40 Calcium 7.9 mg/dl (8.5-10.1) L 09/22/22 10:04 Phosphorus 1.8 mg/dl (2.5-4.9) L D 09/20/22 10:52 Magnesium 1.6 mg/dl (1.7-2.4) L 09/22/22 10:04 Total Bilirubin 1.0 mg/dl (0.2-1.0) 09/19/22 13:35 Direct Bilirubin 0.4 mg/dl (0-0.2) H 09/19/22 13:35 AST 52 U/L (13-39) H 09/19/22 13:35 ALT 38 U/L (7-52) 09/19/22 13:35 Alkaline Phosphatase 125 U/L (34-104) H 09/19/22 13:35 Troponin I High Sens 64.4 pg/ml (0-20) H* 09/20/22 12:51 Total Protein 8.0 gm/dl (6.0-8.3) 09/19/22 13:35 Albumin 4.0 gm/dl (3.4-5.0) 09/19/22 13:35 Triglycerides 79 mg/dl (0-150) 09/21/22 04:20 Cholesterol 110 mg/dl (0-200) 09/21/22 04:20 LDL Cholesterol, Calc 52 mg/dl 09/21/22 04:20 VLDL Cholesterol, Calc 16 mg/dl (0-30) 09/21/22 04:20 HDL Cholesterol 42 mg/dl 09/21/22 04:20 Cholesterol/HDL Ratio 2.6 (0-5) 09/21/22 04:20 Lipase 11 U/L (11-82) 09/19/22 19:05 Lipase Cancelled 09/19/22 19:05 Procalcitonin 1.56 ng/ml (0-0.5) H 09/19/22 13:35 Urine Color Yellow 09/19/22 14:17 Urine Appearance Clear (Clear) 09/19/22 14:17 Urine pH 5.0 (4.5-7.5) 09/19/22 14:17 Ur Specific [place] 1.024 (1.000-1.030) 09/19/22 14:17 Urine Protein Negative (Negative) 09/19/22 14:17 Urine Glucose (UA) 3+ (Negative) H 09/19/22 14:17 Urine Ketones 1+ (Negative) H 09/19/22 14:17 Urine Blood Trace (Negative) H 09/19/22 14:17 Urine Nitrite Negative (Negative) 09/19/22 14:17 Urine Bilirubin Negative (Negative) 09/19/22 14:17 Urine Urobilinogen Negative (Negative) 09/19/22 14:17 Ur Leukocyte Esterase Negative (Negative) 09/19/22 14:17 Urine WBC (Auto) 0 /hpf (0-5) 09/19/22 14:17 Urine RBC (Auto) 0-4 /hpf (0-4) 09/19/22 14:17 U Hyaline Cast (Auto) 0 /lpf (0-5) 09/19/22 14:17 U Epithel Cells (Auto) 0-5 /lpf (0-5) 09/19/22 14:17 Urine Bacteria (Auto) Negative (Negative) 09/19/22 14:17 Urine Osmolality 644 mOsm/kg (500-800) 09/19/22 Unknown Nasal Screen MRSA (PCR) Negative (Negative) 09/19/22 Unknown SARS-CoV-2 (PCR) NEGATIVE (Negative) 09/19/22 14:26 Influenza Type A (PCR) Negative (Neg) 09/19/22 14:26 Influenza Type B (PCR) Negative (Neg) 09/19/22 14:26 RSV (RT-PCR) Negative (Neg) 09/19/22 14:26 Impressions Blood Cx no growth to date. Wound gram stain no organisms, rare yeast. Chest X-Ray 09/19/22 13:27 XR chest 1V portable CLINICAL HISTORY: Sepsis TECHNIQUE: Single frontal radiograph of the chest was obtained. Comparison: Comparison is made to chest radiograph 06/08/2022 FINDINGS: No lines and tubes are seen. The cardiomediastinal silhouette is normal. The lungs are clear. No evidence of pleural effusion or pneumothorax. IMPRESSION: No acute abnormalities and in particular no evidence of pneumonia. ACT 112: Negative or not required by law. Electronically signed by: Dane Colmenares M.D. 09/19/2022 2:18 PM Foot X-Ray 09/19/22 13:27 XR foot LT min 3V routine CLINICAL HISTORY: Left foot infection. COMPARISON: None FINDINGS: Alignment of the left foot is anatomic. Tarsometatarsal joints are intact. There is no acute fracture. There is no evidence for acute osteomyelitis within the left foot. Subtle lucency projecting over the lateral left midfoot could reflect gas from a wound. Vascular calcification is incidentally noted. 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 IMPRESSION: No acute fracture. No evidence for acute osteomyelitis within the left foot. ACT 112: Negative or not required by law. Electronically signed by: Gerardo Patterson M.D. 09/19/2022 2:41 PM Abdomen/Pelvis CT 09/19/22 15:03 CT OF THE ABDOMEN AND PELVIS WITHOUT CONTRAST CLINICAL HISTORY: Abdominal pain, nausea and vomiting. COMPARISON STUDY: CT of the abdomen and pelvis February 27, 2017. TECHNIQUE: Axial images of the abdomen and pelvis were obtained without IV contrast. Images were reviewed in the axial, sagittal, and coronal planes. Automated exposure control was utilized for the study. A dose lowering technique was utilized adhering to the principles of ALARA. FINDINGS: Old left-sided rib fractures are incidentally noted. A 1.1 cm subp leural left lower lobe nodule on image 85 of [address] of February 27, 2017. This likely contains macroscopic fat and is suggestive of a hamartoma. This is benign. Mild circumferential wall thickening of the distal esophagus is noted. No pneumatosis, free air or portal venous gas is present. No hepatic lesions are identified on unenhanced exam. There is hepatic steatosis. Unenhanced images of the spleen, adrenal glands, right kidney and pancreas are unremarkable. Several left renal calculi measure up to 4 mm. There are no ureteral calculi. There is no hydronephrosis. Abdominal aorta is ectatic, measuring 2.8 cm in caliber. A moderate amount of stool within the colon and rectum is present. There is no evidence for a bowel obstruction. Colonic diverticulosis is present. No evidence for acute diverticulitis. The appendix is normal. There is no ascites or lymphadenopathy. No fluid collection is identified. No acute fracture within the visualized skeletal structures is present. There is mild nodularity of the subcutaneous tissues of the left anterior abdominal wall. This could be related to injections or represent a small contusion. IMPRESSION: 1. Left nephrolithiasis. No ureteral calculi or hydronephrosis. 2. Mild distal esophageal circumferential wall thickening. This is nonspecific but may reflect esophagitis. 3. No bowel obstruction. No bowel wall thickening on unenhanced exam. Moderate amount of stool within the colon and rectum. 4. Hepatic steatosis. ACT 112: Negative or not required by law. Electronically signed by: Gerardo Patterson M.D. 09/19/2022 5:[address] 09/19/22 15:03 CT SCAN OF THE LEFT FOOT WITHOUT IV CONTRAST CLINICAL HISTORY: Diabetic foot wound. COMPARISON STUDY: Radiographs of the left foot dated 09/19/2022. TECHNIQUE: CT scan of the left foot is performed from the ankle to the base of the foot. Images are reviewed in the axial, sagittal, and coronal planes. IV contrast was not administered for this examination. A dose lowering technique was utilized adhering to the principles of ALARA. CT DOSE: 183.21 mGy.cm FINDINGS: The skeletal structures are osteopenic. No acute fracture is seen. The ankle mortise is intact noting degenerative change at the tibiotalar articulation. There is no evidence of osteochondral defect in the talar dome. There are tiny dorsal and plantar calcaneal enthesophytes. No bony erosion or periostitis is identified. Degenerative change is seen at the first metatarsophalangeal joint and throughout the mid foot. No soft tissue gas is seen. The Achilles tendon is intact as visualized. There is generalized atrophy of the regional musculature. Atherosclerotic calcification is seen throughout the regional vessels. Mild soft tissue swelling is present throughout the foot. There is induration along the plantar aspect of the lateral mid foot at the base of the fifth metatarsal. No organized/drainable fluid collection is seen to suggest abscess. IMPRESSION: 1. No acute bony abnormality is identified. 2. Osteopenia and degenerative change as above. 3. There is mild soft tissue edema throughout the forefoot as above. 4. No soft tissue gas or organized fluid collection is identified. ACT 112: Negative or not required by law. Dictated: 09/19/2022 5:09 PM Transcribed: 09/19/2022 5:26 PM Dee [id number] [email or web address] Electronically signed by: Isra Webster M.D. 09/19/2022 5:[address] 09/19/22 15:03 CT SCAN OF THE BRAIN WITHOUT IV CONTRAST CLINICAL HISTORY: Change in mental status. Generalized weakness. COMPARISON STUDY: CT of the brain dated 02/23/2021. TECHNIQUE: Unenhanced axial CT scan of the brain is performed from the vertex to the skull base. A dose lowering technique was utilized adhering to the principles of ALARA. CT DOSE: 884.08 mGy.cm FINDINGS: Brain parenchyma: A focus of left frontal encephalomalacia is consistent with a remote insult. There is age-related involutional change noting mild subcortical and periventricular microangiopathic disease. There is no hemorrhage, mass effect, or evidence of acute territorial ischemia by CT criteria. Chronic lacunar infarcts are noted in the left basal ganglia and the right cerebellar hemisphere. Flores-white matter differentiation is preserved. No extra-axial fluid collection is seen. Ventricles, sulci, cisterns: Prominent secondary to involutional change. Intracranial vasculature: There is atherosclerotic calcification of the cavernous carotid and vertebral arteries. Calvarium: There is postsurgical change from left-sided craniotomy. Sinuses and mastoids: The visualized paranasal sinuses are clear. The mastoid air cells are well pneumatized. Orbits: The bony orbits are grossly intact. IMPRESSION: Chronic and postsurgical changes as above with no hemorrhage, mass effect, or evidence of acute territorial ischemia by CT criteria. ACT 112: Negative or not required by law. Electronically signed by: Isra Webster M.D. 09/19/2022 5:08 PM
--- NOTE | 2022-09-22 10:10 | Pharmacy Report ---
Pharmacy Glycemic Short Note 2 - Date of Service September 22, 2022 - Glycemic Short BSG Results (Last 24 hours): 09/21/22 09/21/22 09/21/22 11:32 11:34 16:21 Glucose 119 H POC Glucose 110 H 86 09/21/22 09/22/22 20:00 07:27 Glucose POC Glucose 134 H 260 H OUTPATIENT ANTIDIABETIC REGIMEN: * Lantus 24 units SC AM + 18 units SC PM * Regular insulin 6 units SC BIDM * Metformin 500 mg PO BIDM * HbA1c: 12.1% (09/21/22) ASSESSMENT: 09/22: * Kwaku received 87 units of insulin yesterday with excellent glycemic control * 44 units of Lantus, 43 units Novolog * BSGs: 153, 110, 86, 134 mg/dl * Fasting BSG of 260 mg/dL this morning (up from 153 mg/dL yesterday). Nursing staff reported that the patient had peanut butter and crackers as HS snack. Uncertain if he ate additional snacks overnight. I am hesitant to react to this value since this was unlikely a true fasting BSG. * Severe hyperglycemia with lunch despite receiving similar doses of insulin yesterday. I confirmed with nursing that patient does not have snacks in his room. He is not on steroids. Will resume Novolog parameters that worked well for him yesterday and order a one time IV regular insulin bolus. 09/21: * Patient received a total of 114 units of insulin yesterday, 48 units basal + 66 units bolus. BSGs were: [phone] mg/dL. * Fasting BSG improved to 153 mg/dL this AM. * Given significant drop in fasting, will reduce basal slightly today. * Tightened CF/CR as well this AM. * Ceftriaxone started for possible cellulitis. 09/20: * 67 yo M presented from [facility] for altered mental status and hyperglycemia. Pharmacy was consulted to assist with inpatient glycemic management. Most recent A1c from 06/2021 was 10.5%. Patient is on broad spectrum abx for possible diabetic foot infection. * Questionable HHS vs straight hyperglycemia. Presented with mild confusion, serum BSG of 792 mg/dL, CO2 20 mmol/L, Anion Gap 16, pH 7.33, 1+ ketones in urine. Effective serum osmo was < 320 mOsm which points more towards hyperglycemia rather than HHS; however, this lab was drawn following at least 2 L of fluid being given so it may not be accurate. * Started on an insulin drip at 10 units/hr with a 9 unit bolus initially. BSGs quickly decreased and patient received approximately 70 units via the drip overnight. * Was given a Lantus dose this morning and was transition off the drip around 5 AM. * BSGs this AM were 291 and 317 mg/dL. * Patient received 6 units of Novolog for BSG of 291 followed by 19 units of Novolog for BSG of 317 + breakfast carb coverage. Expecting these doses to stack given they were administered only an hour apart. * Lunchtime BSG was 191 mg/dL. * Tighten Novolog to reflect weight/stress of 3. * Will stress outpatient dose of Lantus. PLAN FOR INPATIENT GLYCEMIC CONTROL: * Hold outpatient oral diabetes medications * Basal insulin * Lantus 24 units SC BID * Additional 5 units with lunch * Bolus insulin * NovoLog per scale ACHS or Q6hrs while NPO * Goal Range: Low 110 mg/dL - High 140 mg/dL * Correction Factor: 15 mg/dL/unit * Nutritional / Prandial insulin per carb ratio of 1 unit per 4 grams CHO consumed
[2022-09-22 11:13] LABS: BUN Creatinine Ratio 17.3 (10-20); Calcium 7.9 mg/dl (8.5-10.1); Creatinine Clr Calc Pharmacy 64.4 ml/min; Est GFR (African American) 66.4 ml/min; Est GFR (Non-African American) 57.3 ml/min; Magnesium 1.6 mg/dl (1.7-2.4); Potassium 3.6 mmol/L (3.5-5.1)
[2022-09-22] MEDS ORDERED: LANTUS PER UNIT CHARGE SQ ONE (11:30)
[2022-09-22] MEDS ORDERED: INSULIN HUMAN REGULAR PER UNIT 8 UNITS in SYRINGE 7.92 ML IV ONE (12:00)
[2022-09-23] MEDS ORDERED: VANCOMYCIN LEVEL ONE (05:00)
[2022-09-23] MEDS: PIPERACILLIN/TAZOBACTAM 3.375 GM in DEXTROSE 5% 100 ML IV SCH ×2 (06:15→14:49)
[2022-09-23 06:53] LABS: BUN Creatinine Ratio 17.9 (10-20); Calcium 7.8 mg/dl (8.5-10.1); Creatinine Clr Calc Pharmacy 72.9 ml/min; Est GFR (African American) 77.3 ml/min; Est GFR (Non-African American) 66.7 ml/min; Magnesium 1.6 mg/dl (1.7-2.4); Potassium 3.8 mmol/L (3.5-5.1)
--- NOTE | 2022-09-23 07:39 | Hospitalist Progress Note ---
Date of Service September 22, 2022 Assessment & Plan (1) HHNC (hyperglycemic hyperosmolar nonketotic coma): Plan: HHS -Improving Currently on short acting/long-acting insulin regimen Apparently patient did not receive insulin for the last few days -Pending A1c -Apparently patient was taking Lantus 13 at night and NovoLog sliding scale poor control -Of insulin drip -Started on 50 units of Lantus every morning +7 units of NovoLog before meals -Hyperosmolar hyper volume hyponatremia Improving Sodium is 132 today 09/21 A1c of 2.8 consider poorly controlled diabetes, currently on basal bolus regimen, serum glucose fairly controlled, currently on diabetic diet, Hyponatremia has improved Acute kidney injury has improved 09/22 Episode of hyperglycemia today (2) HTN (hypertension): Plan: Uncontrolled Add Norvasc 10 mg daily Add carvedilol 12.5 mg daily add hydralazine 0 mg tid 09/21 Blood pressure is controlled right (3) Hyperlipidemia: Plan: Continue statins (4) CVA (cerebral infarction): Plan: Add aspirin 81 mg daily Check lipid profile (5) Diabetic foot ulcer: Plan: Left fifth digit diabetic cellulitis with concern for osteo- -CT did not show evidence of osteomyelitis -Evidence of necrotic tissue in the toe, consult with ID did not recommend amputation or debridement, recommend IV antibiotic, switch to Zosyn and vancomycin, pending wound culture, -d/w with ID over the phone phone wait for the cultures (6) APRIL (acute kidney injury): Plan: Baseline creatinine 1.2-1.4 Presented with creatinine around 2 Resolved stop IV Admission and Anticipated Discharge Date Admission Date: September 19, 2022 Subjective Patient is a 67-year-old male who was seen this a.m. He was alert and oriented in the bed. BRIDGETTE Hoang was present during the visit as well as 2 correctional officers. He reports he has pain in the left fifth toe and rates as 5/10. He denies any fever, chills, night sweats, chest pain or shortness of breath. He denies any paresthesia in the fifth toe or other toes. He denies any paresthesia in his feet. He offers no concerns this morning Physical Exam Physical Exam: General: Alert. nontoxic. Skin: Warm, dry, Head: Atraumatic Ears, nose, mouth and throat: airway patent Cardiovascular: Normal peripheral perfusion Respiratory: no respiratory distress Gastrointestinal: Non distended Musculoskeletal: No deformity Results & Data Results & Data ([facility]) Vital Signs (Past 12 Hours) Vital Signs Temp Pulse Resp BP Pulse Ox O2 Del Method 09/23/22 04:00 36.9 C 65 18 166/83 H 96 Room Air 09/22/22 23:58 36.6 C 65 18 177/91 H 97 Room Air 09/22/22 20:00 36.8 C 67 18 161/79 H 97 Room Air PG Care Time/CCT Total # of Minutes Spent Total Time Spent with Patient: Total time spent is greater than 50% in coordination of care (as documented) at patient's floor/unit and/or counseling patient: Coding Level of Care Code 95270 Subseq Hosp Care Lvl 3 Diagnoses HHNC (hyperglycemic hyperosmolar nonketotic coma) E11.01 HTN (hypertension) I10 Hypertension type: unspecified Hyperlipidemia E78.5 CVA (cerebral infarction) I63.9 Diabetic foot ulcer E11.621; L97.509 APRIL (acute kidney injury) N17.9 (1) HTN (hypertension) Hypertension type: unspecified Qualified Code(s): I10 - Essential (primary) hypertension
[2022-09-23] MEDS ORDERED: VANCOMYCIN HCL 1,500 MG in SODIUM CHLORIDE 0.9% 500 ML IV SCH (08:00)
[2022-09-23] MEDS: ASPIRIN 81 MG ECTAB PO SCH (08:11)
[2022-09-23] MEDS: amLODIPine BESYLATE 5 MG TAB PO SCH (08:11)
[2022-09-23] MEDS: ENOXAPARIN INJ 40 MG/0.4 ML SYR SQ SCH (08:12)
[2022-09-23] MEDS: carvediloL 12.5 MG TAB PO SCH ×2 (08:12→20:28)
[2022-09-23] MEDS: NORTRIPTYLINE HCL 25 MG CAP PO SCH ×2 (08:12→20:28)
[2022-09-23] MEDS: ATORVASTATIN 10 MG TAB PO SCH (08:12)
[2022-09-23] MEDS: DOCUSATE SODIUM/SENNA 50/8.6MG TAB PO SCH (08:13)
[2022-09-23] MEDS: INSULIN ASPART PER UNIT SC SCH ×4 (08:17→20:29)
--- NOTE | 2022-09-23 08:44 | Pharmacy Report ---
Pharmacy Glycemic Short Note 2 - Date of Service September 23, 2022 - Glycemic Short BSG Results (Last 24 hours): 09/22/22 09/22/22 09/22/22 10:04 11:16 11:17 Glucose 359 H* POC Glucose 270 H 316 H* 09/22/22 09/22/22 09/22/22 11:19 14:23 14:52 Glucose POC Glucose 352 H* 56 L* 75 09/22/22 09/22/22 09/22/22 16:38 17:32 20:22 Glucose POC Glucose 83 103 H 127 H 09/23/22 09/23/22 05:53 07:16 Glucose 154 H POC Glucose 174 H OUTPATIENT ANTIDIABETIC REGIMEN: * Lantus 24 units SC AM + 18 units SC PM * Regular insulin 6 units SC BIDM * Metformin 500 mg PO BIDM * HbA1c: 12.1% (09/21/22) ASSESSMENT: 09/23: * BSGs unexpectedly labile yesterday with no clear trend, ranging 56-315 mg/dL * As detailed yesterday, fasting BSG of 260 mg/dL yesterday was likely not true fasting * Hypoglycemia in afternoon likely related to over-correction of hyperglycemia at lunchtime * Fasting BSG of 174 mg/dL this morning, will plan to increase Lantus today (give BID) * Will plan to use aggressive Novolog parameters at breakfast and loosen slightly for lunch, dinner, and HS 09/22: * Kwaku received 87 units of insulin yesterday with excellent glycemic control * 44 units of Lantus, 43 units Novolog * BSGs: 153, 110, 86, 134 mg/dl * Fasting BSG of 260 mg/dL this morning (up from 153 mg/dL yesterday). Nursing staff reported that the patient had peanut butter and crackers as HS snack. Uncertain if he ate additional snacks overnight. I am hesitant to react to this value since this was unlikely a true fasting BSG. * Severe hyperglycemia with lunch despite receiving similar doses of insulin yesterday. I confirmed with nursing that patient does not have snacks in his room. He is not on steroids. Will resume Novolog parameters that worked well for him yesterday and order a one time IV regular insulin bolus. 09/20: * 67 yo M presented from [facility] for altered mental status and hyperglycemia. Pharmacy was consulted to assist with inpatient glycemic management. Most recent A1c from 06/2021 was 10.5%. Patient is on broad spectrum abx for possible diabetic foot infection. * Questionable HHS vs straight hyperglycemia. Presented with mild confusion, serum BSG of 792 mg/dL, CO2 20 mmol/L, Anion Gap 16, pH 7.33, 1+ ketones in urine. Effective serum osmo was < 320 mOsm which points more towards hyperglycemia rather than HHS; however, this lab was drawn following at least 2 L of fluid being given so it may not be accurate. * Started on an insulin drip at 10 units/hr with a 9 unit bolus initially. BSGs quickly decreased and patient received approximately 70 units via the drip overnight. * Was given a Lantus dose this morning and was transition off the drip around 5 AM. * BSGs this AM were 291 and 317 mg/dL. * Patient received 6 units of Novolog for BSG of 291 followed by 19 units of Novolog for BSG of 317 + breakfast carb coverage. Expecting these doses to stack given they were administered only an hour apart. * Lunchtime BSG was 191 mg/dL. * Tighten Novolog to reflect weight/stress of 3. * Will stress outpatient dose of Lantus. PLAN FOR INPATIENT GLYCEMIC CONTROL: * Hold outpatient oral diabetes medications * Basal insulin * Lantus 20 units SC qAM * Lantus 0-15 units SC HS (see EHR for details) * Bolus insulin * NovoLog per scale ACHS or Q6hrs while NPO * Goal Range: Low 110 mg/dL - High 140 mg/dL * Correction Factor: 15 mg/dL/unit with breakfast, 20 mg/dL/unit with lunch, dinner, HS * Nutritional / Prandial insulin per carb ratio of 1 unit per 4 grams CHO consumed with breakfast, 1 unit per 5 grams CHO with lunch, dinner, HS
[2022-09-23] MEDS ORDERED: LANTUS PER UNIT CHARGE SQ SCH ×2 (09:00→21:00)
--- NOTE | 2022-09-23 09:01 | Pharmacy Report ---
Pharmacy PK ABX Note - Date of Service September 23, 2022 - Assessment and Plan Assessment 67 year old M receiving vancomycin for treatment of diabetic/foot ulcer. Pertinent microbiologic data includes: Blood cultures show no growth at 48 hours, left foot preliminary culture shows pin-point growth. No findings of osteomyelitis on CT. Hospitalist discussed case with ID over the phone, do not recommend amputation or debridement; continue broad spectrum IV antibiotics for now. Day # 3 of antimicrobial therapy. Plan Vancomycin * Current regimen: 1750 mg IV every 24 hours * Random level obtained 09/23/22 resulted as 11 mcg/mL. This is predicted to a chieve target AUC/TESSY of 400-600 mg/L.hr, however will adjust regimen today to more reliably achieve target AUC/TESSY * Predicted AUC at steady state: 425 mg/L.hr * Change to 1500 mg IV every 18 hours for increased probability of target AUC/TESSY * Will repeat level in the next 48-72 hours if therapy is continued and/or change in patient clinical status Zosyn * 3.375 g IV q8h - appropriate based on BMI, renal function, and indication Pharmacy will continue to follow and will adjust dose/frequency as necessary. Thank you. Pharmacy has transitioned to AUC monitoring for vancomycin. AUC/TESSY is the preferred PK/PD target and is associated with decreased risk of nephrotoxicity compared to traditional trough targets.
[2022-09-23] MEDS: lisinopril 20 MG TAB PO SCH (09:16)
--- NOTE | 2022-09-23 10:28 | Orthopedic Progress Note ---
Date of Service September 23, 2022 Assessment & Plan (1) Diabetic foot ulcer: Plan: Orthopedically patient is stable for discharge He will continue with IV regimen per ID. He will also continue with dressing changes per nursing and wound care team. Appropriate to be followed by wound clinic. Discussed better control of his blood sugars He was advised any weightbearing he should be using the orthopedic shoe. Patient verbalized understanding and is in agreement with plan. If condition becomes worse, staff at medical dept at [facility] can contact our clinic to set up an evaluation. T/C Toe pressures and vascular input. Present on Admission?: Yes Admission and Anticipated Discharge Date Admission Date: September 19, 2022 Supervising Physician Co-Signing Physician Notes I, Dr. Tracey, saw and examined the patient and discussed the management with my PA. I reviewed my PAs note and agree with the documented findings and the plan of care I developed. Subjective This 67-year-old male inmate is seen this morning for follow-up of left fifth toe diabetic ulcer. Patient's nurse was in the room and states that the wound care nurse had just change his dressing and did not want it removed for examination this morning. Patient states he is doing fine. He is still receiving IV antibiotics for the infection. He is under medicine service currently and discharge will be pending their evaluation. Review of Systems Review of Systems: All systems reviewed & are unremarkable except as noted in Subjective Physical Exam Physical Exam: Left foot: Dressing was kept in place. I was able to visualize the tips of each toe. Patient was able to detect light sensation to touch over the digits. He was able to move them actively. He was able to actively dorsi and plantarflex foot. He was able to perform an active straight leg raise test. Dr. Tracey's exam left foot: intact blister noted on the plantar surface of the great toe with no signs of infection. There is wound noted on the fifth toe with black eschar lateral aspect. No major surrounding erythema. No purulent drainage visible or able to be expressed during exam. Patient has limited motion of toe. Minor swelling noted but no palpable fluctuance. Patient reports sensation to light touch. Results & Data ([facility]) Vital Signs (Past 12 Hours) Vital Signs Temp Pulse Resp BP Pulse Ox O2 Del Method 09/23/22 07:57 37 C 65 20 185/95 H 97 Room Air 09/23/22 04:00 36.9 C 65 18 166/83 H 96 Room Air 09/22/22 23:58 36.6 C 65 18 177/91 H 97 Room Air Diagnostic Findings [address] [place] [address] / Director: Luis Khan M.D. Clinical Laboratory Report Name: DEBORAH SALAS [id number] Acct: [id number] Status: ADM IN : 1955 [facility] [place] Date: 09/19/22 Age: 67 Sex: M Dis Date: Loc: [address]/Bed: W255-2 Spec: [id number] Collected: 09/21/22 Received: 09/21/22-[address]: Frederick Bagley MD Copy To: Luis Fuchs MD Source: Foot,Left OV Order: Ordered: Surf Wnd Cul/Sm Procedure Result Verified Site Gram Stain Final 09/22/22 Gram Stain Result No WBCs Seen Rare Yeast Surface Wound Culture Preliminary 09/23/22-1006 Organism 1 Staphylococcus species Quantity Rare Sens Sensitivities to Follow Organism 2 Group B Beta Strep Quantity Few Sens Sensitivities to Follow Name: DBEORAH SALAS [id number] : 1955 PAGE 1 Printed: 09/23/22 8730 END OF REPORT Laboratory Results WBC 14.00 K/ul (4.8-10.8) H 09/19/22 13:35 RBC 4.16 M/uL (4.63-6.08) L 09/19/22 13:35 Hgb 12.5 g/dl (14.0-18.0) L 09/19/22 13:35 Hct 36.8 % (40.1-51.0) L 09/19/22 13:35 MCV 88.5 fL (80.0-100.0) 09/19/22 13:35 MCH 30.0 pg (25.0-34.0) 09/19/22 13:35 MCHC 34.0 g/dL (32.0-36.0) 09/19/22 13:35 RDW Std Deviation 39.7 fL (36.4-46.3) 09/19/22 13:35 RDW Coeff of Vidal 12.3 % (11.5-14.5) 09/19/22 13:35 Plt Count 188 K/uL (130-400) 09/19/22 13:35 MPV 12.1 fL (9.4-12.4) 09/19/22 13:35 Neutrophils % (Manual) 77 % 09/19/22 13:35 Lymphocytes % (Manual) 16 % 09/19/22 13:35 Monocytes % (Manual) 7 % 09/19/22 13:35 Basophils % (Manual) 1 % 09/19/22 13:35 Neutrophils # (Manual) 10.78 K/uL (1.4-6.5) H 09/19/22 13:35 Total Absolute Neuts 10.78 K/uL (1.4-6.5) H 09/19/22 13:35 Lymphocytes # (Manual) 2.24 K/uL (1.2-3.4) 09/19/22 13:35 Total Abs Lymphocytes 2.24 K/uL (1.2-3.4) 09/19/22 13:35 Monocytes # (Manual) 0.98 K/uL (0.24-0.82) H 09/19/22 13:35 Basophils # (Manual) 0.14 K/uL (0-0.2) 09/19/22 13:35 Toxic Vacuolation 1+ 09/19/22 13:35 PT 11.7 Seconds (9.0-12.0) 09/19/22 13:35 INR 1.1 (0.9-1.1) 09/19/22 13:35 ABG pH 7.33 (7.35-7.45) L 09/19/22 14:18 ABG pCO2 38 mmHg (35-46) 09/19/22 14:18 ABG pO2 85 mmHg (80-95) 09/19/22 14:18 ABG HCO3 20 mmol/L (19-24) 09/19/22 14:18 ABG O2 Saturation 98.0 % (90-95) H 09/19/22 14:18 ABG Base Excess -5.4 mEq/L (-9-1.8) 09/19/22 14:18 Valentin Test POS (Pos) 09/19/22 14:18 VBG pH 7.41 (7.36-7.41) 09/20/22 10:52 VBG pCO2 49 mmHg (38-50) 09/19/22 22:53 VBG pO2 20 mmHg 09/19/22 22:53 VBG HCO3 28 mmol/L 09/19/22 22:53 VBG O2 Saturation < 60.0 % 09/19/22 22:53 VBG Base Excess 1.5 mEq/L 09/19/22 22:53 Oxygen Given ROOM AIR 09/19/22 14:18 Sodium 135 mmol/L (136-145) L 09/23/22 05:53 Potassium 3.8 mmol/L (3.5-5.1) 09/23/22 05:53 Chloride 104 mmol/L (98-107) 09/23/22 05:53 Carbon Dioxide 26 mmol/L (21-32) 09/23/22 05:53 Anion Gap 5 (3-11) 09/23/22 05:53 BUN 20 mg/dl (6-23) 09/23/22 05:53 Creatinine 1.12 mg/dl (0.6-1.4) 09/23/22 05:53 Est Cr Clr Drug Dosing 72.9 ml/min 09/23/22 05:53 Est GFR ( Amer) 77.3 ml/min 09/23/22 05:53 Est GFR (Non-Af Amer) 66.7 ml/min 09/23/22 05:53 BUN/Creatinine Ratio 17.9 (10-20) 09/23/22 05:53 Glucose 154 mg/dl (70-99(Fasting)) H 09/23/22 05:53 POC Glucose 174 mg/dl (70-99) H 09/23/22 07:16 Estimat Average Glucose 301 mg/dl 09/21/22 04:20 Hemoglobin A1c 12.1 % (4.5-5.6) H 09/21/22 04:20 Osmolality 305 mOsm/kg (280-300) H 09/19/22 19:05 Lactate 1.9 mmol/L (0.4-2.0) 09/19/22 13:40 Calcium 7.8 mg/dl (8.5-10.1) L 09/23/22 05:53 Phosphorus 1.8 mg/dl (2.5-4.9) L D 09/20/22 10:52 Magnesium 1.6 mg/dl (1.7-2.4) L 09/23/22 05:53 Total Bilirubin 1.0 mg/dl (0.2-1.0) 09/19/22 13:35 Direct Bilirubin 0.4 mg/dl (0-0.2) H 09/19/22 13:35 AST 52 U/L (13-39) H 09/19/22 13:35 ALT 38 U/L (7-52) 09/19/22 13:35 Alkaline Phosphatase 125 U/L (34-104) H 09/19/22 13:35 Troponin I High Sens 64.4 pg/ml (0-20) H* 09/20/22 12:51 Total Protein 8.0 gm/dl (6.0-8.3) 09/19/22 13:35 Albumin 4.0 gm/dl (3.4-5.0) 09/19/22 13:35 Triglycerides 79 mg/dl (0-150) 09/21/22 04:20 Cholesterol 110 mg/dl (0-200) 09/21/22 04:20 LDL Cholesterol, Calc 52 mg/dl 09/21/22 04:20 VLDL Cholesterol, Calc 16 mg/dl (0-30) 09/21/22 04:20 HDL Cholesterol 42 mg/dl 09/21/22 04:20 Cholesterol/HDL Ratio 2.6 (0-5) 09/21/22 04:20 Lipase 11 U/L (11-82) 09/19/22 19:05 Lipase Cancelled 09/19/22 19:05 Procalcitonin 1.56 ng/ml (0-0.5) H 09/19/22 13:35 Urine Color Yellow 09/19/22 14:17 Urine Appearance Clear (Clear) 09/19/22 14:17 Urine pH 5.0 (4.5-7.5) 09/19/22 14:17 Ur Specific Austin 1.024 (1.000-1.030) 09/19/22 14:17 Urine Protein Negative (Negative) 09/19/22 14:17 Urine Glucose (UA) 3+ (Negative) H 09/19/22 14:17 Urine Ketones 1+ (Negative) H 09/19/22 14:17 Urine Blood Trace (Negative) H 09/19/22 14:17 Urine Nitrite Negative (Negative) 09/19/22 14:17 Urine Bilirubin Negative (Negative) 09/19/22 14:17 Urine Urobilinogen Negative (Negative) 09/19/22 14:17 Ur Leukocyte Esterase Negative (Negative) 09/19/22 14:17 Urine WBC (Auto) 0 /hpf (0-5) 09/19/22 14:17 Urine RBC (Auto) 0-4 /hpf (0-4) 09/19/22 14:17 U Hyaline Cast (Auto) 0 /lpf (0-5) 09/19/22 14:17 U Epithel Cells (Auto) 0-5 /lpf (0-5) 09/19/22 14:17 Urine Bacteria (Auto) Negative (Negative) 09/19/22 14:17 Urine Osmolality 644 mOsm/kg (500-800) 09/19/22 Unknown Nasal Screen MRSA (PCR) Negative (Negative) 09/19/22 Unknown Vancomycin Trough 11.0 mcg/ml (10-20) 09/23/22 05:53 SARS-CoV-2 (PCR) NEGATIVE (Negative) 09/19/22 14:26 Influenza Type A (PCR) Negative (Neg) 09/19/22 14:26 Influenza Type B (PCR) Negative (Neg) 09/19/22 14:26 RSV (RT-PCR) Negative (Neg) 09/19/22 14:26 Impressions Chest X-Ray 09/19/22 13:27 XR chest 1V portable CLINICAL HISTORY: Sepsis TECHNIQUE: Single frontal radiograph of the chest was obtained. Comparison: Comparison is made to chest radiograph 06/08/2022 FINDINGS: No lines and tubes are seen. The cardiomediastinal silhouette is normal. The lungs are clear. No evidence of pleural effusion or pneumothorax. IMPRESSION: No acute abnormalities and in particular no evidence of pneumonia. ACT 112: Negative or not required by law. Electronically signed by: Dane Colmenares M.D. 09/19/2022 2:18 PM Foot X-Ray 09/19/22 13:27 XR foot LT min 3V routine CLINICAL HISTORY: Left foot infection. COMPARISON: None FINDINGS: Alignment of the left foot is anatomic. Tarsometatarsal joints are intact. There is no acute fracture. There is no evidence for acute osteomyelitis within the left foot. Subtle lucency projecting over the lateral left midfoot could reflect gas from a wound. Vascular calcification is incidentally noted. 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 IMPRESSION: No acute fracture. No evidence for acute osteomyelitis within the left foot. ACT 112: Negative or not required by law. Electronically signed by: Gerardo Patterson M.D. 09/19/2022 2:41 PM Abdomen/Pelvis CT 09/19/22 15:03 CT OF THE ABDOMEN AND PELVIS WITHOUT CONTRAST CLINICAL HISTORY: Abdominal pain, nausea and vomiting. COMPARISON STUDY: CT of the abdomen and pelvis February 27, 2017. TECHNIQUE: Axial images of the abdomen and pelvis were obtained without IV contrast. Images were reviewed in the axial, sagittal, and coronal planes. Automated exposure control was utilized for the study. A dose lowering technique was utilized adhering to the principles of ALARA. FINDINGS: Old left-sided rib fractures are incidentally noted. A 1.1 cm subpleural left lower lobe nodule on image 85 of [address] of February 27, 2017. This likely contains macroscopic fat and is suggestive of a hamartoma. This is benign. Mild circumferential wall thickening of the distal esophagus is noted. No pneumatosis, free air or portal venous gas is present. No hepatic lesions are identified on unenhanced exam. There is hepatic steatosis. Unenhanced images of the spleen, adrenal glands, right kidney and pancreas are unremarkable. Several left renal calculi measure up to 4 mm. There are no ureteral calculi. There is no hydronephrosis. Abdominal aorta is ectatic, measuring 2.8 cm in caliber. A moderate amount of stool within the colon and rectum is present. There is no evidence for a bowel obstruction. Colonic divert iculosis is present. No evidence for acute diverticulitis. The appendix is normal. There is no ascites or lymphadenopathy. No fluid collection is identified. No acute fracture within the visualized skeletal structures is present. There is mild nodularity of the subcutaneous tissues of the left anterior abdominal wall. This could be related to injections or represent a small contusion. IMPRESSION: 1. Left nephrolithiasis. No ureteral calculi or hydronephrosis. 2. Mild distal esophageal circumferential wall thickening. This is nonspecific but may reflect esophagitis. 3. No bowel obstruction. No bowel wall thickening on unenhanced exam. Moderate amount of stool within the colon and rectum. 4. Hepatic steatosis. ACT 112: Negative or not required by law. Electronically signed by: Gerardo Patterson M.D. 09/19/2022 5:[address] 09/19/22 15:03 CT SCAN OF THE LEFT FOOT WITHOUT IV CONTRAST CLINICAL HISTORY: Diabetic foot wound. COMPARISON STUDY: Radiographs of the left foot dated 09/19/2022. TECHNIQUE: CT scan of the left foot is performed from the ankle to the base of the foot. Images are reviewed in the axial, sagittal, and coronal planes. IV contrast was not administered for this examination. A dose lowering technique was utilized adhering to the principles of ALARA. CT DOSE: 183.21 mGy.cm FINDINGS: The skeletal structures are osteopenic. No acute fracture is seen. The ankle mortise is intact noting degenerative change at the tibiotalar articulation. There is no evidence of osteochondral defect in the talar dome. T here are tiny dorsal and plantar calcaneal enthesophytes. No bony erosion or periostitis is identified. Degenerative change is seen at the first metatarsophalangeal joint and throughout the mid foot. No soft tissue gas is seen. The Achilles tendon is intact as visualized. There is generalized atrophy of the regional musculature. Atherosclerotic calcification is seen throughout the regional vessels. Mild soft tissue swelling is present throughout the foot. There is induration along the plantar aspect of the lateral mid foot at the base of the fifth metatarsal. No organized/drainable fluid collection is seen to suggest abscess. IMPRESSION: 1. No acute bony abnormality is identified. 2. Osteopenia and degenerative change as above. 3. There is mild soft tissue edema throughout the forefoot as above. 4. No soft tissue gas or organized fluid collection is identified. ACT 112: Negative or not required by law. Dictated: 09/19/2022 5:09 PM Transcribed: 09/19/2022 5:26 PM Dee [id number] [email or web address] Electronically signed by: Isra Webster M.D. 09/19/2022 5:[address] 09/19/22 15:03 CT SCAN OF THE BRAIN WITHOUT IV CONTRAST CLINICAL HISTORY: Change in mental status. Generalized weakness. COMPARISON STUDY: CT of the brain dated 02/23/2021. TECHNIQUE: Unenhanced axial CT scan of the brain is performed from the vertex to the skull base. A dose lowering technique was utilized adhering to the principles of ALARA. CT DOSE: 884.08 mGy.cm FINDINGS: Brain parenchyma: A focus of left frontal encephalomalacia is consistent with a remote insult. There is age-related involutional change noting mild subcortical and periventricular microangiopathic disease. There is no hemorrhage, mass effect, or evidence of acute territorial ischemia by CT criteria. Chronic lacunar infarcts are noted in the left basal ganglia and the right cerebellar hemisphere. Flores-white matter differentiation is preserved. No extra-axial fluid collection is seen. Ventricles, sulci, cisterns: Prominent secondary to involutional change. Intracranial vasculature: There is atherosclerotic calcification of the cavernous carotid and vertebral arteries. Calvarium: There is postsurgical change from left-sided craniotomy. Sinuses and mastoids: The visualized paranasal sinuses are clear. The mastoid air cells are well pneumatized. Orbits: The bony orbits are grossly intact. IMPRESSION: Chronic and postsurgical changes as above with no hemorrhage, mass effect, or evidence of acute territorial ischemia by CT criteria. ACT 112: Negative or not required by law. Electronically signed by: Isra Webster M.D. 09/19/2022 5:08 PM
--- NOTE | 2022-09-23 11:30 | Infectious Disease Consult ---
Date of Consultation September 23, 2022 Assessment & Plan (1) Diabetic foot ulcer: (2) HHNC (hyperglycemic hyperosmolar nonketotic coma): (3) Elevated procalcitonin: (4) Cellulitis of foot, left: (5) APRIL (acute kidney injury): Plan This is a 67 yo incarcerated male with history of uncontrolled DM2, CVA sp craniotomy, ulcerative colitis on Enbrel, RA on hydroxychloroquine , ckd III who presented to the ED with confusion, abdominal pain, chest pain, nausea, and vomiting. He was found to be hyperglycemic in the [facility]. He denied headaches, fever, chills, change in urine or bowel habits, shortness of breath, or cough. He has chronic foot ulcers that has drained on and off for an undetermined period of time. Patient is a poor historian and can not elaborate the course of his foot ulcers. He has pain at the left 5th toe. He has foot numbness on most of his other toes. In the Ed he is afebrile, hypertensive with BP 199/119, HR 90, RR 20, O2 at 100% on RA. Labs noted for WBC of 14, sodium 119, K 6.0 bun/cr 59/2.09 , bicarb 20, ph 7.33, anion gap 16, glucose 792, procalcitonin 1.56 and lactate was normal . Ct head, abdomen and pelvis was within normal limits. A left foot xray and Ct was negative for osteomyelitis or abscess. He was started on IVF and was admitted to the ICU for insulin infusion and DKA/HHNS protocol. He received Cefepime and then Ceftriaxone. He is is now on IV vancomycin and Zosyn . His HHNS was controlled and he was transferred to the medical floors. His foot ulcers were evaluated by orthopedics and wound care. No surgical intervention was offered by orthopedics while inpatient. Blood cultures remain sterile. A bedside wound culture is positive for GBS and staph species ( prelim). His Enbrel and hydroxychloroquine was held this admission. ID consulted for evaluation of diabetic foot ulcers . Micro: BC 09/19/22 NGTD WC 09/21/22 rare staph species, few group B strep ( CULTuRE), rare yeast ( GRAM STAIN) MRSA screen 09/19 negative Abx: Cefepime 09/19 ceftriaxone 09/20 daptomycin 09/19 vancomycin 09/19- ongoing zosyn 09/21-ongoing Diabetic left foot ulcers Skin soft tissue infection Necrotic ulcer left 5th toes - No evidence of deep infection on imaging or on exam: no probe to bone, no osteo or abscess on imaging - bedside wound cx PRELIM staph species and GBS on Culture, rare yeast on gram stain ; purulent drainage per unit reactor operator a few days ago -procal 1.56 Poorly controlled DM2 Hyperglycemia hyperosmolar non ketotic state on admission -hgaic 12.1 - glucose > 700 on admission Ulcerative colitis on Enbrel - Enbrel was held this admission Rheumatoid arthritis on hydroxychloroquine -hydroxychloroquine was held this admission Leukocytosis - last WBC on 09/19 elevated at 14. Discussion- This a poorly controlled diabetic male who is immunocompromised on immunosuppressant for UC. He p/w evidence of hyperosmolar hyperglycemia state requiring ICU care. He is out of the ICU. He is noted to have acute on chronic left foot ulcers with a necrotic 5th toe ulcer with surrounding cellulitis. There is no evidence of deep infection with osteomyelitis or abscess on imaging or exam. Bedside preliminary wound culture noted for staph species and Group B strep. Blood cultures are sterile to date. I am meeting him for the first time but when comparing pics of ulcers from yesterday , there appears to be some mild improvement in erythema around the fifth digit. It is unclear if the organisms noted from the 09/21 wound culture represents pathogens or contaminants as this was a superficial wound culture ( GBs, staph species). It is preferred to obtain post debridement deep tissue cultures, however would continue to treat these organisms. Rare yeast is noted on gram stain but not on preliminary culture. Would hold off on antifungals unless little improvement or yeast noted on final wound culture . -Would continue broad IV abx coverage with zosyn --can change dosing to 4.5 giv q6 as his renal function improved ( cr 09/23 1.12, crcl 72.9, gfr 77.3) pending final cx data. -Would change vancomycin to Daptomycin 4 mg/kg iv daily as less nephrotoxic. Aware MRSA screen is negative but sensi for staph species is pending. -Given necrotic wound, would also check vasculature/isra for arterial insuf ficiency and need for revascularization. -He would benefit from wound debridement of the 5th digit ulcer and send culture for:aerobes, anaerobes and fungus. Per review of ortho note and d/w hospitalist - no surgical intervention is currently planned. -Follow up final wound culture data -Will need good glucose/ DM2 control for wound healing - Continue wound care -CHECK CBC as last WBC elevated at 14 on 09/19. -check esr, crp Treatment with antibiotics alone, without surgical debridement and/or revascularization if needed is typically insufficient to cure moderate to severe diabetic foot infection I discussed my recommendations with Dr Bagley by phone. Thank you for allowing me to participate in the care of your patient. Infectious Disease will continue to follow with you. If any questions over the holiday weekend, please call [facility] . Dr. Yudy Velazquez will cover for ID consults starting 09/26/22 Kassy Ramirez MD, MPH Infectious Disease [facility] Consultation Information Consultation was provided via telemedicine using two-way real-time interactive telecommunication between the patient and the telemedicine provider. For the duration of the visit, the provider was performing the assessment from a different facility than the patient. This includesuse of bluetooth stethoscope forauscultationperformed by the telepresenter that the telemedicine provider can hear if described in the physical exam. Sugar Refinery Supervisor contact information: Please call [facility] . (Phone Number For Physician Use Only) After establishing a telemedicine visit, patient was: Patient/authorized rep acknowledged consent and understanding and Gave permission to continue telehealth session Time Spent w Inpatient: 80 minutes History of Present Illness Reason for Consultation: Diabetic ulcer Requesting Physician: Frederick Bagley MD Attending Physician: Frederick Bagley MD History of Present Illness This is a 67 yo incarcerated male with history of uncontrolled DM2, CVA sp c raniotomy, ulcerative colitis on Enbrel, RA on hydroxychloroquine , ckd III who presented to the ED with confusion, abdominal pain, chest pain, nausea, and vomiting. [facility] He denied headaches, fever, chills, change in urine or bowel habits, shortness of breath, or cough. He has chronic foot ulcers that has drained on and off for an undetermined period of time. Patient is a poor historian and can not elaborate the course of his foot ulcers. He has pain at the left 5th toe. He has foot numbness on most of his other toes. In the Ed he is afebrile, hypertensive with BP 199/119, HR 90, RR 20, O2 at 100% on RA. Labs noted for WBC of 14, sodium 119, K 6.0 bun/cr 59/2.09 , bicarb 20, ph 7.33, anion gap 16, glucose 792, procalcitonin 1.56 and lactate was normal . Ct head, abdomen and pelvis was within normal limits. A left foot xray and Ct was negative for osteomyelitis or abscess. He was started on IVF and was admitted to the ICU for insulin infusion and DKA/HHNS protocol. He received Cefepime and then Ceftriaxone. He is is now on IV vancomycin and Zosyn . His HHNS was controlled and he was transferred to the medical floors. His foot ulcers were evaluated by orthopedics and wound care. No surgical intervention was offered by orthopedics while inpatient. Blood cultures remain sterile. A bedside wound culture is positive for GBS and staph species ( prelim). His Enbrel and hydroxychloroquine was held this admission. ID consulted for evaluation of diabetic foot ulcers . On my exam, he appears comfortable. A staff combat information center officer is at bedside. He complains of 5th toe pain. The remainder of his foot is numb. He denies new fever, chills or leg swelling. Allergies Allergy/AdvReac Type Severity Reaction Status Date / Time No Known Allergies Allergy Unverified 12/24/20 10:49 Home Medications Medication Instructions Recorded Confirmed Type aspirin 325 mg tablet 325 mg PO DAILY 10/18/20 02/23/21 History atorvastatin 10 mg tablet 10 mg PO DAILY 10/18/20 02/23/21 History docusate sodium 100 mg tablet 100 mg PO BID 10/18/20 02/23/21 History etanercept 50 mg/mL (1 mL) 50 mg subcut WK 10/18/20 02/23/21 History subcutaneous syringe (Enbrel) folic acid 1 mg tablet 1 mg PO DAILY 10/18/20 02/23/21 History glucagon HCl 1 mg solution for 1 mg subcut DAILY PRN Hypoglycemia 10/18/20 02/23/21 History injection (Glucagon (HCl) Emergency Kit) hydroxychloroquine 200 mg tablet 200 mg PO DAILY 10/18/20 02/23/21 History insulin glargine 100 unit/mL (3 18 unit subcut DAILY 10/18/20 02/23/21 History mL) subcutaneous pen insulin glargine 100 unit/mL (3 24 unit subcut QAM 10/18/20 02/23/21 History mL) subcutaneous pen insulin regular human 100 unit/mL 6 unit subcut BID 10/18/20 02/23/21 History (3 mL) subcutaneous pen (Novolin R Flexpen) metformin 500 mg tablet 500 mg PO BID 10/18/20 02/23/21 History nortriptyline 25 mg capsule 25 mg PO BID 10/18/20 02/23/21 History chlorthalidone 25 mg tablet 25 mg PO DAILY 12/24/20 02/23/21 History cyanocobalamin (vitamin B-12) 1,000 mcg PO DAILY 12/24/20 02/23/21 History 1,000 mcg tablet (Vitamin B-12) Patient History Medical History Colitis CVA (cerebral infarction) (2016) Diabetes HTN (hypertension) Hyperlipidemia Orthostatic hypotension (2016) Syncope (2016) Surgical History S/P craniotomy Surgical history unknown Family History Other Family history non-contributory Social History Smoking Status: Former smoker Tobacco Type: Cigarettes Age Started Using Tobacco: 13; packs per day: 0.5; Smoking End Date: 5 years ago; Second Hand Exposure: No; Do You Dip or Chew Tobacco: No; Tobacco Cessation Education Requested by Patient: No Hx Alcohol Use: No Hx Substance Use: Yes Prescribed Medications: Marijuana Last Used Substance Other:: 2007 Substance Use Type Other:: K2 Preferred Language: Bulgarian Communication Ability: Effective Policy Writer Typist Required: No Beliefs That Will Affect Care: None marital status: Current Living Situation: Other Current Living Situation Comment: antoine current occupational status: unemployed Other Information That Helps Us Care for You: No Feels Safe at Home: Yes Safety Concerns: Feels Safe At This Time Assistive Devices: Glasses Review of System A 14 point ROS obtained. Pertinent positives as per HPI. Physical Exam Constitutional: NAD, conversant , Prisoner with cuffs on right ankle. Officer at bedside Eyes: PERRL, EOMI , anicteric sclera ENMT: Poor dentition, missing teeth, throat clear, mucous membrane moist Neck: Supple Respiratory: Clear throughout, no rhonchi, no rales or crackles Cardiovascular: S1,S2 heard, RRR Gastrointestinal (Abdomen): soft, Not distended, not tender, no rebound Musculoskeletal: Moves all extremities Skin: Dry skin throughout, left foot with trace edema. Left fifth toe with necrotic wound at tip/lateral side, with mild surrounding erythema ( decreased per review of pic in chart and pics sent today by hospitalist), 4th toe with maceration and blister interdigit , great toe with large blister on lateral side with surrounding erythema ( ? blood). Wounds reviewed with unit reactor operator at visit as well. tender only at 5th digit. No purulence ( per RN - purulent on initial visit). No warmth, no crepitus or fluctuance, No foul odor . Right foot with no ulcers Neurologic: Awake, alert, oriented times 4 Psychiatric: Appropriate, cooperative Results & Data ([facility]) Vital Signs (Past 12 Hours) Vital Signs Temp Pulse Resp BP Pulse Ox O2 Del Method 09/23/22 07:57 37 C 65 20 185/95 H 97 Room Air 09/23/22 04:00 36.9 C 65 18 166/83 H 96 Room Air 09/22/22 23:58 36.6 C 65 18 177/91 H 97 Room Air Laboratory Results Laboratory Results - last 48 hr 09/21/22 09/21/22 09/21/22 11:32 11:34 16:21 Sodium 135 L Potassium 3.6 Chloride 103 Carbon Dioxide 29 Anion Gap 3 BUN 23 Creatinine 1.08 D Est Cr Clr Drug Dosing 74.5 Est GFR ( Amer) 80.7 Est GFR (Non-Af Amer) 69.7 BUN/Creatinine Ratio 21.3 H Glucose 119 H POC Glucose 110 H 86 Calcium 8.4 L Magnesium Vancomycin Trough 09/21/22 09/22/22 09/22/22 20:00 07:27 10:04 Sodium 133 L Potassium 3.6 Chloride 103 Carbon Dioxide 27 Anion Gap 3 BUN 22 Creatinine 1.27 Est Cr Clr Drug Dosing 64.4 Est GFR ( Amer) 66.4 Est GFR (Non-Af Amer) 57.3 BUN/Creatinine Ratio 17.3 Glucose 359 H* POC Glucose 134 H 260 H Calcium 7.9 L Magnesium 1.6 L Vancomycin Trough 09/22/22 09/22/22 09/22/22 11:16 11:17 11:19 Sodium Potassium Chloride Carbon Dioxide Anion Gap BUN Creatinine Est Cr Clr Drug Dosing Est GFR ( Amer) Est GFR (Non-Af Amer) BUN/Creatinine Ratio Glucose POC Glucose 270 H 316 H* 352 H* Calcium Magnesium Vancomycin Trough 09/22/22 09/22/22 09/22/22 14:23 14:52 16:38 Sodium Potassium Chloride Carbon Dioxide Anion Gap BUN Creatinine Est Cr Clr Drug Dosing Est GFR ( Amer) Est GFR (Non-Af Amer) BUN/Creatinine Ratio Glucose POC Glucose 56 L* 75 83 Calcium Magnesium Vancomycin Trough 09/22/22 09/22/22 09/23/22 17:32 20:22 05:53 Sodium 135 L Potassium 3.8 Chloride 104 Carbon Dioxide 26 Anion Gap 5 BUN 20 Creatinine 1.12 Est Cr Clr Drug Dosing 72.9 Est GFR ( Amer) 77.3 Est GFR (Non-Af Amer) 66.7 BUN/Creatinine Ratio 17.9 Glucose 154 H POC Glucose 103 H 127 H Calcium 7.8 L Magnesium 1.6 L Vancomycin Trough 09/23/22 09/23/22 05:53 07:16 Sodium Potassium Chloride Carbon Dioxide Anion Gap BUN Creatinine Est Cr Clr Drug Dosing Est GFR ( Amer) Est GFR (Non-Af Amer) BUN/Creatinine Ratio Glucose POC Glucose 174 H Calcium Magnesium Vancomycin Trough 11.0 Diagnostic Findings CXR 09/19/22 IMPRESSION: No acute abnormalities and in particular no evidence of pneumonia. Left foot xray 09/19/22 FINDINGS: Alignment of the left foot is anatomic. Tarsometatarsal joints are intact. There is no acute fracture. There is no evidence for acute osteomyelitis within the left foot. Subtle lucency projecting over the lateral left midfoot could reflect gas from a wound. Vascular calcification is incidentally noted. 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 IMPRESSION: No acute fracture. No evidence for acute osteomyelitis within the left foot. CTAB 09/09/22 FINDINGS: Old left-sided rib fractures are incidentally noted. A 1.1 cm subpleural left lower lobe nodule on image 85 of [id number] of February 27, 2017. This likely contains macroscopic fat and is suggestive of a hamartoma. This is benign. Mild circumferential wall thickening of the distal esophagus is noted. No pneumatosis, free air or portal venous gas is present. No hepatic lesions are identified on unenhanced exam. There is hepatic steatosis. Unenhanced images of the spleen, adrenal glands, right kidney and pancreas are unremarkable. Several left renal calculi measure up to 4 mm. There are no ure teral calculi. There is no hydronephrosis. Abdominal aorta is ectatic, measuring 2.8 cm in caliber. A moderate amount of stool within the colon and rectum is present. There is no evidence for a bowel obstruction. Colonic diverticulosis is present. No evidence for acute diverticulitis. The appendix is normal. There is no ascites or lymphadenopathy. No fluid collection is identified. No acute fracture within the visualized skeletal structures is present. There is mild nodularity of the subcutaneous tissues of the left anterior abdominal wall. This could be related to injections or represent a small contusion. IMPRESSION: 1. Left nephrolithiasis. No ureteral calculi or hydronephrosis. 2. Mild distal esophageal circumferential wall thickening. This is nonspecific but may reflect esophagitis. 3. No bowel obstruction. No bowel wall thickening on unenhanced exam. Moderate amount of stool within the colon and rectum. 4. Hepatic steatosis. CT foot 09/19/22 FINDINGS: The skeletal structures are osteopenic. No acute fracture is seen. The ankle mortise is intact noting degenerative change at the tibiotalar articulation. There is no evidence of osteochondral defect in the talar dome. There are tiny dorsal and plantar calcaneal enthesophytes. No bony erosion or periostitis is identified. Degenerative change is seen at the first metatarsophalangeal joint and throughout the mid foot. No soft tissue gas is seen. The Achilles tendon is intact as visualized. There is generalized atrophy of the regional musculature. Atherosclerotic calcification is seen throughout the regional vessels. Mild soft tissue swelling is present throughout the foot. There is induration along the plantar aspect of the lateral mid foot at the base of the fifth metatarsal. No organized/drainable fluid collection is seen to suggest abscess. IMPRESSION: 1. No acute bony abnormality is identified. 2. Osteopenia and degenerative change as above. 3. There is mild soft tissue edema throughout the forefoot as above. 4. No soft tissue gas or organized fluid collection is identified CT head 09/19/22 FINDINGS: Brain parenchyma: A focus of left frontal encephalomalacia is consistent with a remote insult. There is age-related involutional change noting mild subcortical and periventricular microangiopathic disease. There is no hemorrhage, mass effect, or evidence of acute territorial ischemia by CT criteria. Chronic lacunar infarcts are noted in the left basal ganglia and the right cerebellar hemisphere. Flores-white matter differentiation is preserved. No extra-axial fluid collection is seen. Ventricles, sulci, cisterns: Prominent secondary to involutional change. Intracranial vasculature: There is atherosclerotic calcification of the cavernous carotid and vertebral arteries. Calvarium: There is postsurgical change from left-sided craniotomy. Sinuses and mastoids: The visualized paranasal sinuses are clear. The mastoid air cells are well pneumatized. Orbits: The bony orbits are grossly intact. IMPRESSION: Chronic and postsurgical changes as above with no hemorrhage, mass effect, or evidence of acute territorial ischemia by CT criteria Microbiology 09/21/22 09:15 Foot,Left Gram Stain - Final 09/21/22 09:15 Foot,Left Wound Culture - Preliminary Staphylococcus species Group B Beta Strep 09/19/22 13:35 Blood Aerobic Blood Culture - Preliminary No growth in Aerobic bottle after 48 hours. 09/19/22 13:35 Blood Anaerobic Blood Culture - Preliminary No growth in Anaerobic bottle after 48 hours. 09/19/22 13:40 Blood Aerobic Blood Culture - Preliminary No growth in Aerobic bottle after 48 hours. 09/19/22 13:40 Blood Anaerobic Blood Culture - Preliminary No growth in Anaerobic bottle after 48 hours. Medications Administered Home Medications Medication Instructions Recorded Confirmed Last Taken aspirin 325 mg tablet 325 mg PO DAILY 10/18/20 02/23/21 10/18/20 atorvastatin 10 mg tablet 10 mg PO DAILY 10/18/20 02/23/21 10/18/20 \ docusate sodium 100 mg tablet 100 mg PO BID 10/18/20 02/23/21 10/18/20 etanercept 50 mg/mL (1 mL) 50 mg subcut WK 10/18/20 02/23/21 10/14/20 subcutaneous syringe (Enbrel) folic acid 1 mg tablet 1 mg PO DAILY 10/18/20 02/23/21 10/18/20 glucagon HCl 1 mg solution for 1 mg subcut DAILY PRN Hypoglycemia 10/18/20 02/23/21 Unknown injection (Glucagon (HCl) Emergency Kit) hydroxychloroquine 200 mg tablet 200 mg PO DAILY 10/18/20 02/23/21 10/18/20 insulin glargine 100 unit/mL (3 18 unit subcut DAILY 10/18/20 02/23/21 10/17/20 mL) subcutaneous pen insulin glargine 100 unit/mL (3 24 unit subcut QAM 10/18/20 02/23/21 10/18/20 mL) subcutaneous pen insulin regular human 100 unit/mL 6 unit subcut BID 10/18/20 02/23/21 10/18/20 (3 mL) subcutaneous pen (Novolin R Flexpen) metformin 500 mg tablet 500 mg PO BID 10/18/20 02/23/21 10/18/20 nortriptyline 25 mg capsule 25 mg PO BID 10/18/20 02/23/21 10/18/20 chlorthalidone 25 mg tablet 25 mg PO DAILY 12/24/20 02/23/21 Unknown cyanocobalamin (vitamin B-12) 1,000 mcg PO DAILY 12/24/20 02/23/21 Unknown 1,000 mcg tablet (Vitamin B-12) Active Medications Generic Name Dose Route Start Last Admin Trade Name Freq PRN Reason Stop Dose Admin Acetaminophen 1,000 mg 09/22/22 03:41 09/22/22 13:23 Acetaminophen 500 Mg Tab PO 10/22/22 03:40 1,000 mg Q8H PRN Administration Headache Amlodipine Besylate 10 mg 09/20/22 17:15 09/23/22 08:11 Amlodipine Besylate 5 Mg Tab PO 10/20/22 17:14 10 mg QAM REINA Administration Aspirin 81 mg 09/21/22 08:00 09/23/22 08:11 Aspirin 81 Mg Ectab PO 10/21/22 07:59 81 mg QD@08 REINA Administration Atorvastatin Calcium 10 mg 09/21/22 09:00 09/23/22 08:12 Atorvastatin 10 Mg Tab PO 10/21/22 08:59 10 mg QAM REINA Administration Carvedilol 12.5 mg 09/20/22 21:00 09/23/22 08:12 Carvedilol 12.5 Mg Tab PO 10/20/22 20:59 12.5 mg BID REINA Administration Enoxaparin Sodium 40 mg 09/21/22 09:00 09/23/22 08:12 Enoxaparin Inj 40 Mg/0.4 Ml Syr SQ 10/21/22 08:59 40 mg QAM REINA Administration Piperacillin Sod/Tazobactam 115 mls @ 28.75 mls/hr 09/21/22 23:00 09/23/22 10:15 Sod 3.375 gm/ Dextrose IV 09/28/22 22:59 Infused Q8H REINA Infusion Protocol Vancomycin HCl 1,500 mg/ 530 mls @ 200 mls/hr 09/23/22 08:00 09/23/22 09:16 Sodium Chloride IV 09/30/22 07:59 200 mls/hr Q18H REINA Administration Protocol Insulin Aspart 0 units 09/23/22 07:30 09/23/22 08:17 Insulin Aspart Per Unit SC 10/23/22 07:29 16 units DAILY@0730 REINA Administration Protocol Insulin Glargine 20 units 09/23/22 09:00 09/23/22 08:17 Lantus Per Unit Charge SQ 10/23/22 08:59 20 units DAILY REINA Administration Protocol Labetalol HCl 10 mg 09/19/22 23:28 09/20/22 16:30 Labetalol Hcl Iv 5 Mg/Ml 20ml IV 10/19/22 23:27 10 mg Q2H PRN Administration SBP >180 and/or DBP >110 Lisinopril 20 mg 09/23/22 09:00 09/23/22 09:16 Lisinopril 20 Mg Tab PO 10/23/22 08:59 20 mg QAM REINA Administration Miscellaneous 15 - 30 gm 09/19/22 14:39 09/22/22 14:30 Carbohydrates For Hypoglycemia PO 10/19/22 14:38 15 gm UD PRN Administration Hypoglycemia Protocol Nortriptyline HCl 25 mg 09/19/22 21:00 09/23/22 08:12 Nortriptyline Hcl 25 Mg Cap PO 10/19/22 20:59 25 mg BID REINA Administration Senna/Docusate Sodium 1 tab 09/19/22 19:00 09/23/22 08:13 Docusate Sodium/Senna 50/8.6mg Tab PO 10/19/22 18:59 Not Given QAM REINA
--- NOTE | 2022-09-23 19:15 | Hospitalist Progress Note ---
Date of Service September 23, 2022 Assessment & Plan (1) HHNC (hyperglycemic hyperosmolar nonketotic coma): Plan: HHS -Improving Currently on short acting/long-acting insulin regimen Apparently patient did not receive insulin for the last few days -Pending A1c -Apparently patient was taking Lantus 13 at night and NovoLog sliding scale poor control -Of insulin drip -Started on 50 units of Lantus every morning +7 units of NovoLog before meals -Hyperosmolar hyper volume hyponatremia Improving Sodium is 132 today 09/21 A1c of 2.8 consider poorly controlled diabetes, currently on basal bolus regimen, serum glucose fairly controlled, currently on diabetic diet, Hyponatremia has improved Acute kidney injury has improved 09/22 Episode of hyperglycemia today 09/23 Doing fine with current treatment (2) HTN (hypertension): Plan: Uncontrolled Add Norvasc 10 mg daily Add carvedilol 12.5 mg daily add hydralazine 0 mg tid 09/21 Blood pressure is controlled right (3) Hyperlipidemia: Plan: Continue statins (4) CVA (cerebral infarction): Plan: Add aspirin 81 mg daily Check lipid profile (5) Diabetic foot ulcer: Plan: Left fifth digit diabetic cellulitis with concern for osteo- -CT did not show evidence of osteomyelitis -Evidence of necrotic tissue in the toe, consult with orth did not recommend amputation or debridement, recommend IV antibiotic, switch to Zosyn and vanc omycin, pending wound culture, 09/23 Discussed with ID recommend to proceed with debridement of the wound, message left for Ortho, recommend daptomycin and Zosyn increase Zosyn to 4.5 mg every 6 hours. Kidney function is improved recommend switch to daptomycin and stop vancomycin recommend Doppler studies with DYLAN recommend wound debridement and deep wound culture for aerobes anaerobes and fungus Message left for Ortho (6) APRIL (acute kidney injury): Plan: Baseline creatinine 1.2-1.4 Presented with creatinine around 2 Resolved stop IV Admission and Anticipated Discharge Date Admission Date: September 19, 2022 Subjective The left fifth digit ulcer seems a healing properly, discussed with ID recommended to switch to daptomycin and continue Zosyn, recommend do Doppler studies to evaluate for peripheral arterial disease, she recommends oral antibiotic in case of lack of significant peripheral arterial disease otherwise recommend PICC line and long-term antibiotic, we have a slight growth group B streptococcus and yeast Results & Data Results & Data ([facility]) Vital Signs (Past 12 Hours) Vital Signs Temp Pulse Resp BP Pulse Ox O2 Del Method 09/23/22 15:40 37.1 C 62 19 164/86 H 96 Room Air 09/23/22 11:39 36.6 C 64 20 171/86 H 97 Room Air 09/23/22 07:57 37 C 65 20 185/95 H 97 Room Air PG Care Time/CCT Total # of Minutes Spent Total Time Spent with Patient: Total time spent is greater than 50% in coordination of care (as documented) at patient's floor/unit and/or counseling patient: Coding Level of Care Code 96910 Subseq Hosp Care Lvl 3 Diagnoses HHNC (hyperglycemic hyperosmolar nonketotic coma) E11.01 HTN (hypertension) I10 Hypertension type: unspecified Hyperlipidemia E78.5 CVA (cerebral infarction) I63.9 Diabetic foot ulcer E11.621; L97.509 APRIL (acute kidney injury) N17.9 (1) HTN (hypertension) Hypertension type: unspecified Qualified Code(s): I10 - Essential (primary) hypertension
[2022-09-23] MEDS ORDERED: DAPTOmycin 300 MG in SYRINGE 0 ML IV SCH (19:30)
[2022-09-23] MEDS: hydrALAZINE TAB 50 MG TAB PO SCH (20:28)
[2022-09-23] MEDS: PIPERACILLIN/TAZOBACTAM 4.5 GM in DEXTROSE 5% 100 ML IV SCH (20:29)
[2022-09-24] MEDS ORDERED: LINEZOLID 600 MG TAB PO SCH
[2022-09-24] MEDS: PIPERACILLIN/TAZOBACTAM 4.5 GM in DEXTROSE 5% 100 ML IV SCH ×3 (02:31→14:59)
[2022-09-24 07:42] LABS: Creatinine Clr Calc Pharmacy 69.8 ml/min; Est GFR (African American) 73.3 ml/min; Est GFR (Non-African American) 63.2 ml/min
[2022-09-24] MEDS: DOCUSATE SODIUM/SENNA 50/8.6MG TAB PO SCH (08:35)
[2022-09-24] MEDS: ENOXAPARIN INJ 40 MG/0.4 ML SYR SQ SCH (08:36)
[2022-09-24] MEDS: amLODIPine BESYLATE 5 MG TAB PO SCH (08:37)
[2022-09-24] MEDS: hydrALAZINE TAB 50 MG TAB PO SCH (08:37)
[2022-09-24] MEDS: carvediloL 12.5 MG TAB PO SCH (08:37)
[2022-09-24] MEDS: ATORVASTATIN 10 MG TAB PO SCH (08:37)
[2022-09-24] MEDS: ASPIRIN 81 MG ECTAB PO SCH (08:37)
[2022-09-24] MEDS: NORTRIPTYLINE HCL 25 MG CAP PO SCH (08:38)
[2022-09-24] MEDS: lisinopril 20 MG TAB PO SCH (08:38)
[2022-09-24] MEDS: INSULIN ASPART PER UNIT SC SCH ×3 (08:41→18:06)
--- NOTE | 2022-09-24 08:58 | Ultrasound Report ---
US arterial duplex LE BI CLINICAL HISTORY: diabetic food ulcer with DYLAN COMPARISON STUDY: None. FINDINGS: Normal bilateral ankle brachial indices measuring between 1.2 and 1.3. Mild scattered calci fied plaque identified. Normal triphasic to biphasic waveforms and velocities seen throughout the kendal ateral lower extremity arterial systems. No significant stenosis or occlusion identified. IMPRESSION: No significant stenosis or occlusion identified within the bilateral lower extremity art erial systems. ACT 112: Negative or not required by law. Electronically signed by: Alexy Jin M.D. 09/24/2022 8:56 AM
[2022-09-24] MEDS ORDERED: LANTUS PER UNIT CHARGE SQ SCH ×2 (09:00→21:00)
[2022-09-24] MEDS ORDERED: hydrALAZINE TAB 50 MG TAB PO SCH (14:00)
--- NOTE | 2022-09-24 15:49 | Discharge Summary ---
Date of Service September 24, 2022 Admission HPI Per Admitting Provider Reports BSG normally 200s, sometimes as low as 80s No A1C in the last year, repeat pending Endorses as had some kidney problems, is not aware of the details or numbers Denies history of heart failure History of CVA a few years ago 'before COVID'. Endorses chronic residual L leg weakness since, some difficulty with speech/speech delay. Discussed with [facility], report has been cold and patient has not been coming for insulin doses recently. Per patient he had not been given insulin by the [facility] but does not elaborate further. Patient denies polyuria, endorses that he is felt very weak and tired . Notes that in the last 2 days the swelling on his toe has worsened and has been more red than usual. Does not have pain flexing/extending the toe. No time bedside assessment denies fever, chills, lightheadedness, dizziness, chest pain, chest pressure, shortness of breath. Endorses mild epigastric abdominal pain, endorses intermittent nausea. Denies constipation/diarrhea. Denies blood per rectum and melena. Other medications: Amlodipine 5 mg daily Aspirin full dose daily Atorvastatin 40 mg daily Enbrel 50 mg weekly Hydrochlorothiazide 12.5 mg 2 tablets daily Hydroxychloroquine 200 mg daily Labetalol 200 mg twice daily Meclizine 25 mg 3 times daily Nortriptyline 25 mg orally twice daily Med reconciliation with present: History of type 2 diabetes, hep C virus, h yperlipidemia, CVA 2016, benign hypertension, ulcerative colitis, rheumatoid arthritis, CAD without stenting No tobacco/alcohol use. Full code. Principal Diagnosis Nonketotic hyperglycemia Diabetic foot ulcer of the left fifth toe Discharge Exam General: Alert. nontoxic. Skin: Warm, dry, Head: Atraumatic Ears, nose, mouth and throat: airway patent Cardiovascular: Normal peripheral perfusion Respiratory: no respiratory distress Gastrointestinal: Non distended Musculoskeletal: No deformity Discharge Data Allergies Allergy/AdvReac Type Severity Reaction Status Date / Time No Known Allergies Allergy Unverified 12/24/20 10:49 Consultations 09/19/22 16:48 ED Decision to Admit Stat 09/19/22 19:15 Consult Assessment Director Routine 09/21/22 16:33 Consult Orthopedic Surgery Routine 09/23/22 11:37 Consult Infectious Diseases Routine Ordered Studies 09/19/22 15:03 CT abd pelvis wo con Stat CT foot LT wo con Stat CT head/brain wo con Stat 09/23/22 14:08 US arterial duplex LE BI Routine Diabetes Follow up Diabetes Follow-up Needed for HgbA1c >9% Hospital Course (1) HHNC (hyperglycemic hyperosmolar nonketotic coma): The patient presented to hospital with nonketotic hyperglycemia, initially started on an insulin drip admitted to the ICU, he was also started on IV fluid, his presenting serum glucose was around 400, A1c of 12.7, insulin regimen adjusted, currently we increased the dose of Novolin to 15 units twice daily and continue home dose of Lantus, patient is further adjustment by his PCP, also he needs to use sliding scale for extra insulin coverage, A1c needs to be checked in 4 months Home insulin regimen is adjusted, the dose of Novolin has increased to 15 units twice daily, continue Lantus plus sliding scale (2) HTN (hypertension): Blood pressure was not controlled over the course of admission, patient is on hydralazine 100 mg 3 times daily, lisinopril 40 mg daily, Norvasc 10 mg daily as well as carvedilol 12.5 mg twice daily, patient is to be followed by PCP on a regular basis, he needs to check his blood pressure daily basis and adjust his blood pressure medication accordingly (3) Hyperlipidemia: Continue statins (4) CVA (cerebral infarction): Add aspirin 81 mg daily Currently of 51 (5) Diabetic foot ulcer: Left fifth digit diabetic cellulitis with concern for osteo- -CT did not show evidence of osteomyelitis -Evidence of necrotic tissue in the toe, consult with orth did not recommend amputation or debridement, recommend IV antibiotic -Initially patient started on daptomycin and Zosyn, responded well, consulted with Ortho as mentioned above who did not recommend debridement, peripheral arterial Doppler was done no evidence of significant arterial disease, patient was discharged on Zyvox for 15 days to follow-up with podiatry in 1 to 2 weeks, possible need for debridement or escalation of treatment if there is no improvement but so for the wound has been healing rapidly, patient needs to wear the orthopedic boot till he is cleared by podiatry (6) APRIL (acute kidney injury): Baseline creatinine 1.2-1.4 Presented with creatinine around 2 Resolved stop IV Total Time Total Time Spent Total Time Spent (In Minutes): 45 mins Discharge Plan Discharge Items [facility] Reason For Visit: DKA, SUSPECTED PSEUDOHYPONATREMIA Discharge Diagnosis: Nonketotic hyperglycemia with poorly controlled diabetes and A1c of 12.7 Uncontrolled hypertension Infection of the left fifth toe Activity: Resume your previous activity Lifting: Gradually increase as tolerated Lifting Comment: Use orthopedic boot, till your toe is healed Non-emergency contact: Primary Care Provider and Surgeon Call non-emergency contact if: you have any medication questions and your symptoms worsen Follow-up/Referrals: Luc BACA [Primary Care Provider] - Diet: Carb Count or DM1 and Heart Healthy Addtl Attending Provider Instructions: You need to follow-up with the home health attendant in 1 week to evaluate your left toe infection Your blood pressure is not controlled, you need to check your blood pressure daily basis and adjust your blood pressure medication accordingly in 1 to 2 weeks You need to wear the orthopedic boot to till you are cleared by your doctor or home health attendant You have poorly controlled diabetes with A1c of 12.7 that can cause irreversible organ damage as please follow with your primary care doctor/engineering department chair for adjustment of your insulin regimen Addtl Occupational Medicine Specialist Provider Instructions: Orthopedically the patient is stable for discharge. He should be followed by the wound clinic. If his condition becomes worse and with recommendation of the wound clinic we will be happy to see the patient for an evaluation. However, there is no sign of osteomyelitis at this point so follow-up will be as needed. Pending Studies at Discharge: No Stand-Alone Forms: My [facility] Skilled Items Patient informed of condition?: Yes Discharge Level of Care: Other Communicable Disease: No Discharge Prognosis: Stable Lines: None Urinary Catheter: No Medications and DC Order Prescriptions: New carvedilol 12.5 mg Tablet 12.5 mg PO BID Qty: 90 0RF atorvastatin 10 mg Tablet 10 mg PO QAM Qty: 60 0RF amlodipine [Norvasc] 5 mg Tablet 10 mg PO QAM Qty: 30 0RF hydralazine 50 mg Tablet 100 mg PO TID Qty: 300 0RF aspirin 81 mg Tablet,Delayed Release (Dr/Ec) 81 mg PO QD@08 Qty: 90 0RF lisinopril 40 mg tablet 40 mg PO DAILY Qty: 90 0RF Continued atorvastatin 10 mg Tablet 10 mg PO DAILY nortriptyline 25 mg Capsule 25 mg PO BID folic acid 1 mg Tablet 1 mg PO DAILY hydroxychloroquine 200 mg Tablet 200 mg PO DAILY docusate sodium 100 mg Tablet 100 mg PO BID Enbrel 50 mg/mL (1 mL) Syringe 50 mg SUBCUT WK Rx Instructions: wed insulin glargine 100 unit/mL (3 mL) Insulin Pen 18 unit SUBCUT DAILY Rx Instructions: 1630 insulin glargine 100 unit/mL (3 mL) Insulin Pen 24 unit SUBCUT QAM Rx Instructions: 0700 Glucagon (HCl) Emergency Kit 1 mg Recon Soln 1 mg subcut DAILY PRN (Reason: Hypoglycemia) cyanocobalamin (vitamin B-12) [Vitamin B-12] 1,000 mcg Tablet 1,000 mcg PO DAILY Changed Novolin R Flexpen 100 unit/mL (3 mL) Insulin Pen 15 unit SUBCUT BID Qty: 15 0RF Rx Instructions: sliding scale Discontinued metformin 500 mg Tablet 500 mg PO BID aspirin 325 mg Tablet 325 mg PO DAILY chlorthalidone 25 mg Tablet 25 mg PO DAILY Discharge Orders: Discharge Order (Routine); Ordered 09/24/22 Ordered By: Frederick Chamorro/Other Patient Handouts: High Blood Sugar (Hyperglycemia), Managing Type 2 Diabetes, Hypertension Dc Admission Data Admit Date/Time: 09/19/22 16:49 Attending Provider: Frederick Bagley Admit Provider: Luis Fuchs Primary Care Provider: Luc BACA Other Providers: Luis Fuchs ; George Jenkins ; Santiago Tracey ; Yenny Muir ; Sanchez Padron ; Yudy Velazquez ; Beto Vogel ; Rocio Pedro ; Nyasia Velez ; Alea Fischer ; Kassy Ramirez ; Maile Fish Other Interventions: Discharge Summary Assessment (RN) Last Done: 09/24/22 14:51 Coding Level of Care Code D/C DAY MANAGEMENT >30 MINS Diagnoses HHNC (hyperglycemic hyperosmolar nonketotic coma) E11.01 HTN (hypertension) I10 Hypertension type: unspecified Hyperlipidemia E78.5 CVA (cerebral infarction) I63.9 Diabetic foot ulcer E11.621; L97.509 APRIL (acute kidney injury) N17.9
[2022-09-24] MEDS ORDERED: Nursing to Pharmacy Communication SCH (17:00)
--- NOTE | 2022-10-05 08:23 | Coding Query ---
To promote full compliance with coding requirements relating to patient care, provider participation is requested in all cases of associate director finance uncertainty. Please assist us with the question(s) below: Coding Question(s): The diagnosis(es) below was documented in the Critical Care Progress Notes/Consultation then subsequently fell off all further documentation. Please indicate if it is still a possible diagnosis or ruled out. Physician's Response(s): METABOLIC ENCEPHALOPATHY ( x ) Diagnosed and POA ( ) Diagnosed and not POA ( ) Ruled out ( ) Other (please specify) Thank you for your assistance, Analy Mac - Truck Rental Manager TOR
== END 2022-09-24 18:22 | DRG 637 ==
LOC: ED 13:10 → 1E 16:49 → SUATTDRO 16:49 → 1E 18:07 → 2W 09-21 11:23 → 3W 09-23 22:31

== ENCOUNTER 2022-10-05 20:35 | Inpatient (IN) ==
[2022-10-05 21:29] LABS: Basophils # (auto) 0.05 K/uL (0-0.2); Eosinophils # (auto) 0.27 K/uL (0-0.50); Eosinophils % (auto) 5.2 %; Hematocrit (blood only) 31.8 % (40.1-51.0); Hemoglobin 10.7 g/dl (14.0-18.0); Immature Granulocytes # (auto) 0.01 K/uL (0.00-0.02); Immature Granulocytes % (auto) 0.2 %; Lymphocytes # (auto) 1.55 K/uL (1.2-3.4); Lymphocytes % (auto) 29.6 %; Mean Corpuscular Hgb Conc 33.6 g/dL (32.0-36.0); Mean Corpuscular Volume 89.1 fL (80.0-100.0); Mean Platelet Volume 9.9 fL (9.4-12.4); Monocytes % (auto) 15.3 %; Neutrophils # (auto) 2.56 K/uL (1.4-6.5); Neutrophils % (auto) 48.7 %; Platelet Count 289 K/uL (130-400); RDW Coefficient of Variation 13.1 % (11.5-14.5); RDW Standard Deviation 42.9 fL (36.4-46.3); Red Blood Count 3.57 M/uL (4.63-6.08); White Blood Count 5.24 K/ul (4.8-10.8)
--- NOTE | 2022-10-05 21:33 | XRay Report ---
XR chest 1V portable CLINICAL HISTORY: Chest pain, nonspecific COMPARISON STUDY: Chest radiograph September 19, 2022. FINDINGS: No pneumothorax or pleural effusion is noted. There has been interval development of hazy r ight lower lung opacity. Left lung is clear. Cardiomediastinal silhouette is stable. IMPRESSION: Interval development of hazy right lower lung opacity which favors pneumonia. Radiograph ic follow-up to ensure resolution is recommended. ACT 112: Negative or not required by law. Electronically signed by: Gerardo Patterson M.D. 10/05/2022 9:32 PM
[2022-10-05] MEDS ORDERED: VANCOMYCIN HCL 2,000 MG in SODIUM CHLORIDE 0.9% 500 ML IV ONE (21:41)
[2022-10-05] MEDS ORDERED: VANCOMYCIN CONSULT ACTIVE PRN (21:41)
[2022-10-05] MEDS ORDERED: CEFEPIME 2,000 MG/20 ML VIAL IV STA (21:42)
[2022-10-05 22:06] LABS: Albumin Globulin Ratio 0.8 (0.9-2); Albumin Level 3.5 gm/dl (3.4-5.0); BUN Creatinine Ratio 15.2 (10-20); Bilirubin,Total 0.4 mg/dl (0.2-1.0); Creatinine Clr Calc Pharmacy 52.4 ml/min; Globulin 4.2 gm/dl (2.5-4.0); Potassium 4.5 mmol/L (3.5-5.1); Total Protein 7.7 gm/dl (6.0-8.3)
--- NOTE | 2022-10-05 23:56 | Emergency Department Note ---
Impression & Plan Right lower lobe pneumonia, Diabetes, Gangrene of toe, SOB (shortness of breath) ED Provider Note INFORMANT: Patient ED PROVIDER(S): Victor Hugo Regan MD CHIEF COMPLAINT: Shortness of breath PLAN: Disposition: Admitted Condition: Good Outpatient prescription management: none Referral: None MEDICAL DECISION MAKING: Patient presented emerged part because of shortness of breath. He also had a diabetic foot infection and there was concerns about gangrene of the left fifth toe. On physical examination he does have a black left fifth toe that is concerning for gangrene. There is tenderness there. He also has an ulceration developing on his first toe on the left foot. Patient underwent a work-up. His ECG did not show any acute ischemia. Chest x-ray was concerning for right lower lobe infiltrate. His CBC showed a mild anemia but no leukocytosis. Chemistry panel was unremarkable. Patient was given broad-spectrum antibiotics due to the foot but also because of the right lower lobe infiltrate. Patient was administered cefepime and vancomycin. Patient's troponin and BNP were negative. The patient will need further management in the hospital regarding the w orsening issues with the foot and also to treat the right lower lobe infiltrate. Consultation was made with the [facility], Dr. Ahuja. Case was discussed and diagnostics were reviewed. She did request imaging of the left foot and we discussed this. CT imaging of the left foot without contrast was ordered. Patient was evaluated in the ER and admitted for further management After review of the information above and other included data, I feel the patient requires further management in the hospital. Triage Nursing notes reviewed and agree them. Vital Signs: reviewed and remarkable for hypertension Prior /Outside records reviewed: Prior hospitalization records reviewed. Foot was evaluated and at that time no surgical intervention was necessary. Differential diagnosis: Diabetic foot infection, reactive airway disease, pneumonia, pneumothorax, COPD, CHF, infections, cardiac ischemia, pulmonary embolism, musculoskeletal, gastrointestinal, as well as other pathologies. Diagnostics, as interpreted by me: ECG: Twelve-lead ECG reveals a normal sinus rhythm at 84 bpm. There is septal Q wave. No ST elevation or depression. No PVCs. Cardiac Monitoring: Cardiac monitoring ordered by me: The patient was placed on continuous cardiac monitoring and observed. It revealed a normal sinus rhythm at 79 beats per minute without ectopy or evidence of dysrhythmia. Medical decision rules: none Imaging studies: CT imaging pending. After imaging of the chest reveals right lower lobe infiltrate. I refer you to the EMR for further details. HPI: The patient is a 67 year old male who presents to the Emergency Room with complaints of shortness of breath. This started over the last 3 to 4 days and is progressive. The patient also notes the following associated symptoms, lower extremity edema and black discoloration of the left fifth toe. There is also ulceration on the left great toe. Patient was referred to the emergency department by the [facility]. The patient has been given no medication for relieving factors. Current pain is rated as 0/10. Patient has pain with palpation of the area but no baseline pain. Denies any diabetic neuropathy. Pt denies LOC, headache, fevers, chills, diaphoresis, visual changes, neck pain, chest pain, nausea, vomiting, abdominal pain, back pain, melena, hematochezia, urinary symptoms, numbness, weakness, lymphadenopathy, or other complaints. PAST MEDICAL HISTORY: See Below, diabetes PAST SURGICAL HISTORY: See Below, SOCIAL HISTORY: See Below, incarcerated HOME MEDICATIONS: See Below ALLERGIES: See Below VITALS: See Below PHYSICAL EXAMINATION: GENERAL: Awake, alert, mildly dyspneic-appearing, in no distress HENT: Normocephalic, atraumatic. Oropharynx unremarkable. EYES: Normal conjunctiva. Sclera non-icteric. NECK: Inspection normal. Non-tender. Supple. No nuchal rigidity. FROM. No masses. RESPIRATORY: Clear to auscultation. No wheezes. No rales. Normal respiratory effort. CARDIAC: Normal rate. Normal rhythm. No murmurs. No rubs. Extremities warm and well perfused. Pulses equal. No JVD. GI: Soft, non-distended. No tenderness to palpation. No rebound or guarding. No masses. RECTAL: Deferred. MUSCULOSKELETAL: Atraumatic. Chest examination reveals no tenderness. LOWER EXTREMITIES: Calves are equal size bilaterally and non-tender. 2+ edema. There is an ulceration noted on the left great toe without surrounding cellulitis. There is gangrenous appearance with black discoloration of the left fifth toe. Moderate tenderness to palpation. NEURO: Normal sensorium. No sensory or motor deficits noted. SKIN: No rash or jaundice noted. Past Med/Surg History Medical History Colitis CVA (cerebral infarction) (2016) Diabetes HTN (hypertension) Hyperlipidemia Orthostatic hypotension (2016) Syncope (2016) Surgical History S/P craniotomy Surgical history unknown Family History Other Family history non-contributory Social History Smoking Status: Never smoker Tobacco Type: Cigarettes Age Started Using Tobacco: 13; packs per day: 0.5; Second Hand Exposure: No; Hx Alcohol Use: No Hx Substance Use: Yes Prescribed Medications: Marijuana Last Used Substance Other:: 2007 Substance Use Type Other:: K2 Preferred Language: Maltese Communication Ability: Effective Air Conditioning Supervisor Required: No Beliefs That Will Affect Care: None marital status: Current Living Situation: Other Current Living Situation Comment: [facility] current occupational status: unemployed Feels Safe at Home: Yes Assistive Devices: Glasses Allergies Allergies Allergy/AdvReac Type Severity Reaction Status Date / Time No Known Allergies Allergy Unverified 10/05/22 22:25 Home Meds Home Medications Medication Instructions Recorded Confirmed docusate sodium 100 mg tablet 100 mg PO BID 10/18/20 10/05/22 etanercept 50 mg/mL (1 mL) 50 mg subcut WK 10/18/20 10/05/22 subcutaneous syringe (Enbrel) folic acid 1 mg tablet 1 mg PO DAILY 10/18/20 10/05/22 glucagon HCl 1 mg solution for 1 mg subcut DAILY PRN Hypoglycemia 10/18/20 10/05/22 injection (Glucagon (HCl) Emergency Kit) hydroxychloroquine 200 mg tablet 200 mg PO DAILY 10/18/20 10/05/22 nortriptyline 25 mg capsule 25 mg PO BID 10/18/20 10/05/22 cyanocobalamin (vitamin B-12) 1,000 mcg PO DAILY 12/24/20 10/05/22 1,000 mcg tablet (Vitamin B-12) amlodipine 10 mg tablet 10 mg PO DAILY 10/05/22 10/05/22 ammonium lactate 12 % lotion 1 applic topical BID 10/05/22 10/05/22 atorvastatin 10 mg tablet 10 mg PO DAILY 10/05/22 10/05/22 hydralazine 100 mg tablet 100 mg PO TID 10/05/22 10/05/22 hydrochlorothiazide 25 mg tablet 25 mg PO DAILY 10/05/22 10/05/22 insulin glargine 100 unit/mL 15 unit subcut QPM 10/05/22 10/05/22 subcutaneous solution insulin glargine 100 unit/mL 24 unit subcut QAM 10/05/22 10/05/22 subcutaneous solution insulin regular human 100 unit/mL 15 unit subcut BID 10/05/22 10/05/22 injection solution (Novolin R Regular U-100 Insulin) Previous Rx's Medication Instructions Recorded linezolid 600 mg tablet (Zyvox) 600 mg PO BID 14 days #28 tabs 09/24/22 lisinopril 40 mg tablet 40 mg PO DAILY #90 tabs 09/24/22 Results & Data (ED) Vital Signs Vital Signs - 24 hr 10/05/22 20:44 10/05/22 20:44 10/05/22 20:44 Temperature 36.7 C Temperature Source Oral Pulse Rate 84 Pulse Rate [Apical] Pulse Rate from SpO2 Sensor Respiratory Rate 18 Respiratory Effort / Characteristics Non-Labored Non-Labored Respiratory Depth Normal Normal Respiratory Pattern Regular Blood Pressure 123/68 Blood Pressure [Right Arm] Blood Pressure Mean 86 Blood Pressure Mean [Right Arm] Pulse Oximetry 95 95 Oxygen Delivery Method Room Air Room Air Room Air Sepsis Recent Fever Within 48 Hours No Sepsis New/Unexplained Change in Mental Status N/A Sepsis Action Taken by Nursing No Action Required 10/05/22 21:01 10/05/22 23:09 10/06/22 00:00 Temperature Temperature Source Pulse Rate 82 79 Pulse Rate [Apical] 78 Pulse Rate from SpO2 Sensor 78 Respiratory Rate 18 14 13 Respiratory Effort / Characteristics Respiratory Depth Respiratory Pattern Blood Pressure 170/74 H Blood Pressure [Right Arm] 153/81 H Blood Pressure Mean 106 Blood Pressure Mean [Right Arm] 105 Pulse Oximetry 97 95 97 Oxygen Delivery Method Room Air Room Air Room Air Sepsis Recent Fever Within 48 Hours Sepsis New/Unexplained Change in Mental Status Sepsis Action Taken by Nursing Laboratory Data 10/05/22 21:00 10/05/22 21:00 Lab Results 10/05/22 10/05/22 10/05/22 Range/Units 21:00 21:00 21:00 WBC 5.24 (4.8-10.8) K/ul RBC 3.57 L (4.63-6.08) M/uL Hgb 10.7 L (14.0-18.0) g/dl Hct 31.8 L (40.1-51.0) % MCV 89.1 (80.0-100.0) fL MCH 30.0 (25.0-34.0) pg MCHC 33.6 (32.0-36.0) g/dL RDW Std Deviation 42.9 (36.4-46.3) fL RDW Coeff of Vidal 13.1 (11.5-14.5) % Plt Count 289 (130-400) K/uL MPV 9.9 (9.4-12.4) fL Immature Gran % (Auto) 0.2 % Neut % (Auto) 48.7 % Lymph % (Auto) 29.6 % [place]upe % (Auto) 15.3 % Eos % (Auto) 5.2 % Baso % (Auto) 1.0 % Neut # (Auto) 2.56 (1.4-6.5) K/uL Lymph # (Auto) 1.55 (1.2-3.4) K/uL [place] # (Auto) 0.80 (0.24-0.82) K/uL Eos # (Auto) 0.27 (0-0.50) K/uL Baso # (Auto) 0.05 (0-0.2) K/uL Immature Gran # (Auto) 0.01 (0.00-0.02) K/uL Sodium 134 L (136-145) mmol/L Potassium 4.5 (3.5-5.1) mmol/L Chloride 102 (98-107) mmol/L Carbon Dioxide 26 (21-32) mmol/L Anion Gap 6 (3-11) BUN 24 H (6-23) mg/dl Creatinine 1.58 H (0.6-1.4) mg/dl Est Cr Clr Drug Dosing 52.4 ml/min Est GFR ( Amer) 51.0 ml/min Est GFR (Non-Af Amer) 44.0 ml/min BUN/Creatinine Ratio 15.2 (10-20) Glucose 94 (70-99(Fasting)) mg/dl Calcium 9.0 (8.5-10.1) mg/dl Total Bilirubin 0.4 (0.2-1.0) mg/dl AST 28 (13-39) U/L ALT 18 (7-52) U/L Alkaline Phosphatase 65 (34-104) U/L Troponin I High Sens 10.0 (0-20) pg/ml B-Natriuretic Peptide (0-100) pg/ml Total Protein 7.7 (6.0-8.3) gm/dl Albumin 3.5 (3.4-5.0) gm/dl Globulin 4.2 H (2.5-4.0) gm/dl Albumin/Globulin Ratio 0.8 L (0.9-2) Lipase 15 (11-82) U/L Procalcitonin < 0.05 (0-0.5) ng/ml SARS-CoV-2, RNA, NAAT (NEGATIVE) 10/05/22 10/05/22 10/05/22 Range/Units 21:00 22:00 22:00 WBC (4.8-10.8) K/ul RBC (4.63-6.08) M/uL Hgb (14.0-18.0) g/dl Hct (40.1-51.0) % MCV (80.0-100.0) fL MCH (25.0-34.0) pg MCHC (32.0-36.0) g/dL RDW Std Deviation (36.4-46.3) fL RDW Coeff of Vidal (11.5-14.5) % Plt Count (130-400) K/uL MPV (9.4-12.4) fL Immature Gran % (Auto) % Neut % (Auto) % Lymph % (Auto) % [place] % (Auto) % Eos % (Auto) % Baso % (Auto) % Neut # (Auto) (1.4-6.5) K/uL Lymph # (Auto) (1.2-3.4) K/uL [place] # (Auto) (0.24-0.82) K/uL Eos # (Auto) (0-0.50) K/uL Baso # (Auto) (0-0.2) K/uL Immature Gran # (Auto) (0.00-0.02) K/uL Sodium (136-145) mmol/L Potassium (3.5-5.1) mmol/L Chloride (98-107) mmol/L Carbon Dioxide (21-32) mmol/L Anion Gap (3-11) BUN (6-23) mg/dl Creatinine (0.6-1.4) mg/dl Est Cr Clr Drug Dosing ml/min Est GFR ( Amer) ml/min Est GFR (Non-Af Amer) ml/min BUN/Creatinine Ratio (10-20) Glucose (70-99(Fasting)) mg/dl Calcium (8.5-10.1) mg/dl Total Bilirubin (0.2-1.0) mg/dl AST (13-39) U/L ALT (7-52) U/L Alkaline Phosphatase (34-104) U/L Troponin I High Sens (0-20) pg/ml B-Natriuretic Peptide 47 Cancelled (0-100) pg/ml Total Protein (6.0-8.3) gm/dl Albumin (3.4-5.0) gm/dl Globulin (2.5-4.0) gm/dl Albumin/Globulin Ratio (0.9-2) Lipase (11-82) U/L Procalcitonin (0-0.5) ng/ml SARS-CoV-2, RNA, NAAT NEGATIVE (NEGATIVE) Administered Medications Discontinued Medications Vancomycin HCl 2,000 mg/ (Sodium Chloride) 540 mls @ 200 mls/hr IV NOW ONE Stop: 10/06/22 00:22 Last Admin: 10/05/22 23:05 Dose: 200 mls/hr Documented By: JYOTSNA Cefepime HCl (Maxipime) 2,000 mg in 20 mls @ 5 mls/min IV NOW STA; Protocol Stop: 10/05/22 21:45 Last Admin: 10/05/22 23:04 Dose: 5 mls/min Documented By: JYOTSNA Imaging Data Radiologist's Impression: Chest X-Ray 10/05/22 21:01 XR chest 1V portable CLINICAL HISTORY: Chest pain, nonspecific COMPARISON STUDY: Chest radiograph September 19, 2022. FINDINGS: No pneumothorax or pleural effusion is noted. There has been interval development of hazy right lower lung opacity. Left lung is clear. Cardiomediastinal silhouette is stable. IMPRESSION: Interval development of hazy right lower lung opacity which favors pneumonia. Radiographic follow-up to ensure resolution is recommended. ACT 112: Negative or not required by law. Electronically signed by: Gerardo Patterson M.D. 10/05/2022 9:32 PM Discharge Plan Visit Data Chief Complaint: Shortness of Breath/Dyspnea ED Provider: Victor Hugo Regan Discharge Problem: Right lower lobe pneumonia, Diabetes, Gangrene of toe, SOB (shortness of breath) Forms Stand Alone Forms: My [facility] Prescriptions Prescriptions: No Action nortriptyline 25 mg Capsule 25 mg PO BID folic acid 1 mg Tablet 1 mg PO DAILY hydroxychloroquine 200 mg Tablet 200 mg PO DAILY docusate sodium 100 mg Tablet 100 mg PO BID Enbrel 50 mg/mL (1 mL) Syringe 50 mg SUBCUT WK Rx Instructions: wed glucagon HCl [Glucagon (HCl) Emergency Kit] 1 mg Recon Soln 1 mg subcut DAILY PRN (Reason: Hypoglycemia) hydralazine 100 mg Tablet 100 mg PO TID Rx Instructions: hold if blood pressure less than 110/60 atorvastatin 10 mg Tablet 10 mg PO DAILY amlodipine 10 mg Tablet 10 mg PO DAILY Novolin R Regular U-100 Insuln 100 unit/mL Solution 15 unit SUBCUT BID insulin glargine 100 unit/mL Solution 15 unit SUBCUT QPM insulin glargine 100 unit/mL Solution 24 unit SUBCUT QAM ammonium lactate 12 % Lotion 1 applic TOPICAL BID hydrochlorothiazide 25 mg Tablet 25 mg PO DAILY cyanocobalamin (vitamin B-12) [Vitamin B-12] 1,000 mcg Tablet 1,000 mcg PO DAILY lisinopril 40 mg tablet 40 mg PO DAILY Qty: 90 0RF linezolid [Zyvox] 600 mg tablet 600 mg PO BID 14 Days Qty: 28 0RF Rx Instructions: stop 10/08/22 Referrals Referrals: Luc BACA [Primary Care Provider] -
--- NOTE | 2022-10-06 01:52 | CT Scan Report ---
CT foot LT wo con CLINICAL HISTORY: left 5th toe gangrene and 1st ulcer. DM hx. osteo? COMPARISON STUDY: Left foot radiographs and CT of the left foot September 19, 2022. TECHNIQUE: Axial images of the left foot were obtained without IV contrast. Sagittal and coronal dao nstructions were viewed. Automated exposure control was utilized for the study. A dose lowering tech nique was utilized adhering to the principles of ALARA. FINDINGS: A laceration of the left fifth toe is noted. There is no CT evidence for acute osteomyeliti s. There is no acute fracture. Tarsometatarsal joints are intact. No soft tissue gas is present. Note is made of extensive subcutaneous fluid of the ankle and foot which has increased since CT of [facility] 2021. Moderate vascular calcification is present. Degenerative changes within the left foot ar e similar to prior CT. No evidence for acute osteomyelitis within the left first toe. IMPRESSION: 1. Left fifth toe laceration. No CT evidence for acute osteomyelitis within the left foot. No fractur e. 2. Increase in left ankle and foot subcutaneous fluid. This could reflect edema or cellulitis. No flu id collection identified on unenhanced exam. No soft tissue gas. ACT 112: Negative or not required by law. Electronically signed by: Gerardo Patterson M.D. 10/06/2022 1:49 AM
[2022-10-06] MEDS ORDERED: GLUCOSE 10 TAB/TUBE PO PRN (02:56)
[2022-10-06] MEDS ORDERED: CARBOHYDRATES FOR HYPOGLYCEMIA PO PRN (02:56)
[2022-10-06] MEDS ORDERED: ACETAMINOPHEN 325 MG TAB PO PRN (02:56)
[2022-10-06] MEDS ORDERED: DEXTROSE 50% 50 ML SYRINGE IV PRN (02:56)
[2022-10-06] MEDS ORDERED: VANCOMYCIN CONSULT ACTIVE PRN (02:56)
[2022-10-06] MEDS ORDERED: GLUCOSE 40% GEL 15 GM TUBE PO PRN (02:56)
[2022-10-06] MEDS ORDERED: GLUCAGON FOR INJ 1 MG VIAL SQ PRN (02:56)
--- NOTE | 2022-10-06 03:06 | History & Physical Report ---
Date of Service October 06, 2022 Assessment & Plan (1) Gangrene of toe: Plan: No osteomyelitis appreciated on CT, consider MRI -Vancomycin and Cefepime -Wound care -Pain control with Tylenol -Check ESR and CRP (2) Right lower lobe pneumonia: Plan: Patient endorses productive cough and SOB. Afebrile, no leukocytosis, normal procalcitonin. Presently with adequate oxygenation on room air. Patient is on Enbrel for RA, immunosuppressed. -Vancomycin and Cefepime (3) HTN (hypertension): Plan: Chronic. Elevated presently at 163/100 -Continue Amlodipine, Hydralazine, HCTZ -Continue Lisinopril -Monitor (4) Diabetes: Plan: Chronic. 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 No new findings -Aspiration precautions Admission and Anticipated Discharge Date Admission Date: October 06, 2022 History of Present Illness Chief Complaint: SOB, Left foot pain Primary Care Provider: [facility] Kwaku Ashley is a 67yo male with history of RA on Enbrel, DM, HTN and HLP, prior hemorrhagic CVA s/p craniotomy with residual minor delay in speech and some LLE weakness presenting from [facility] with complaint of SOB as well as increased edema of bilateral LE and worsening of diabetic ulcers on his LLE. Patient has been [facility] and has been receiving Linezolid for his LLE ulcers. He was sent in with concern for worsening. No report of fever, chills, nausea, chest pain, abdominal pain, vomiting or diarrhea. He is coughing up green sputum. Reports some purulent discharge from his foot ulcers on occasion. Allergies Allergy/AdvReac Type Severity Reaction Status Date / Time No Known Allergies Allergy Unverified 10/05/22 22:25 Home Medications Medication Instructions Recorded Confirmed Type docusate sodium 100 mg tablet 100 mg PO BID 10/18/20 10/05/22 History etanercept 50 mg/mL (1 mL) 50 mg subcut WK 10/18/20 10/05/22 History subcutaneous syringe (Enbrel) folic acid 1 mg tablet 1 mg PO DAILY 10/18/20 10/05/22 History glucagon HCl 1 mg solution for 1 mg subcut DAILY PRN Hypoglycemia 10/18/20 10/05/22 History injection (Glucagon (HCl) Emergency Kit) hydroxychloroquine 200 mg tablet 200 mg PO DAILY 10/18/20 10/05/22 History nortriptyline 25 mg capsule 25 mg PO BID 10/18/20 10/05/22 History cyanocobalamin (vitamin B-12) 1,000 mcg PO DAILY 12/24/20 10/05/22 History 1,000 mcg tablet (Vitamin B-12) linezolid 600 mg tablet (Zyvox) 600 mg PO BID 14 days #28 tabs 09/24/22 10/05/22 Rx lisinopril 40 mg tablet 40 mg PO DAILY #90 tabs 09/24/22 10/05/22 Rx amlodipine 10 mg tablet 10 mg PO DAILY 10/05/22 10/05/22 History ammonium lactate 12 % lotion 1 applic topical BID 10/05/22 10/05/22 History atorvastatin 10 mg tablet 10 mg PO DAILY 10/05/22 10/05/22 History hydralazine 100 mg tablet 100 mg PO TID 10/05/22 10/05/22 History hydrochlorothiazide 25 mg tablet 25 mg PO DAILY 10/05/22 10/05/22 History insulin glargine 100 unit/mL 15 unit subcut QPM 10/05/22 10/05/22 History subcutaneous solution insulin glargine 100 unit/mL 24 unit subcut QAM 10/05/22 10/05/22 History subcutaneous solution insulin regular human 100 unit/mL 15 unit subcut BID 10/05/22 10/05/22 History injection solution (Novolin R Regular U-100 Insulin) Past Med/Surg History Medical History Colitis CVA (cerebral infarction) (2016) Diabetes HTN (hypertension) Hyperlipidemia Orthostatic hypotension (2016) Syncope (2016) Surgical History S/P craniotomy Surgical history unknown Family History Other Family history non-contributory Social History Smoking Status: Never smoker Tobacco Type: Cigarettes Age Started Using Tobacco: 13; packs per day: 0.5; Second Hand Exposure: No; Hx Alcohol Use: No Hx Substance Use: Yes Prescribed Medications: Marijuana Last Used Substance Other:: 2007 Substance Use Type Other:: K2 Preferred Language: Vietnamese Communication Ability: Effective Gang Mower Operator Required: No Beliefs That Will Affect Care: None marital status: Current Living Situation: Other Current Living Situation Comment: [email or web address] current occupational status: unemployed Feels Safe at Home: Yes Assistive Devices: Glasses Review of Systems Review of Systems: All systems reviewed & are unremarkable except as noted in HPI & below Physical Exam Physical Exam: General: patient resting comfortably, NAD, non-toxic in appearance, AA&O x 4 Skin: warm, dry, intact, no rashes or lesions HEENT: NC/AT, PERRL, EOMI, anicteric sclera, conjunctiva without injection, external ear normal to inspection and nontender, nares patent, moist mucus membranes, dentition intact, no oropharyngeal lesions, neck supple, trachea midline, no LAD, no thyromegaly, no JVD Heart: +S1/S2, regular, no m/r/g Lungs: equal air entry bilaterally, no rales/rhonchi/wheezes Abd: +BS, soft, NT/ND, no masses/organomegaly/ascites Ext: warm, 2+ pulses in UE/LE bilaterally, no clubbing/cyanosis or edema, left foot with ulceration on great toe with granulation tissue, no bleeding or evidence of active infection. 5th toe with black eschar present on lateral aspect, ulceration on 4th toe as well with minimal purulence present Neuro: nonfocal, patient AA&O x 4, speech intact, no facial droop, moving all extremities on command with equal strength 5/5 Results & Data Results & Data ([facility]) Vital Signs (Past 12 Hours) Vital Signs Temp Pulse Pulse Resp BP BP Pulse Ox 10/06/22 02:21 84 12 163/100 H 10/06/22 02:00 79 13 96 10/06/22 01:00 79 12 169/93 H 10/06/22 00:00 79 13 170/74 H 97 10/05/22 23:09 78 14 153/81 H 95 10/05/22 21:01 82 18 97 10/05/22 20:44 95 10/05/22 20:44 10/05/22 20:44 36.7 C 84 18 123/68 95 O2 Del Method 10/06/22 02:21 10/06/22 02:00 Room Air 10/06/22 01:00 10/06/22 00:00 Room Air 10/05/22 23:09 Room Air 10/05/22 21:01 Room Air 10/05/22 20:44 Room Air 10/05/22 20:44 Room Air 10/05/22 20:44 Room Air Laboratory Results Laboratory Results WBC 5.24 K/ul (4.8-10.8) 10/05/22 21:00 RBC 3.57 M/uL (4.63-6.08) L 10/05/22 21:00 Hgb 10.7 g/dl (14.0-18.0) L 10/05/22 21:00 Hct 31.8 % (40.1-51.0) L 10/05/22 21:00 MCV 89.1 fL (80.0-100.0) 10/05/22 21:00 MCH 30.0 pg (25.0-34.0) 10/05/22 21:00 MCHC 33.6 g/dL (32.0-36.0) 10/05/22 21:00 RDW Std Deviation 42.9 fL (36.4-46.3) 10/05/22 21:00 RDW Coeff of Vidal 13.1 % (11.5-14.5) 10/05/22 21:00 Plt Count 289 K/uL (130-400) 10/05/22 21:00 MPV 9.9 fL (9.4-12.4) 10/05/22 21:00 Immature Gran % (Auto) 0.2 % 10/05/22 21:00 Neut % (Auto) 48.7 % 10/05/22 21:00 Lymph % (Auto) 29.6 % 10/05/22 21:00 [place] % (Auto) 15.3 % 10/05/22 21:00 Eos % (Auto) 5.2 % 10/05/22 21:00 Baso % (Auto) 1.0 % 10/05/22 21:00 Neut # (Auto) 2.56 K/uL (1.4-6.5) 10/05/22 21:00 Lymph # (Auto) 1.55 K/uL (1.2-3.4) 10/05/22 21:00 [place] # (Auto) 0.80 K/uL (0.24-0.82) 10/05/22 21:00 Eos # (Auto) 0.27 K/uL (0-0.50) 10/05/22 21:00 Baso # (Auto) 0.05 K/uL (0-0.2) 10/05/22 21:00 Immature Gran # (Auto) 0.01 K/uL (0.00-0.02) 10/05/22 21:00 Sodium 134 mmol/L (136-145) L 10/05/22 21:00 Potassium 4.5 mmol/L (3.5-5.1) 10/05/22 21:00 Chloride 102 mmol/L (98-107) 10/05/22 21:00 Carbon Dioxide 26 mmol/L (21-32) 10/05/22 21:00 Anion Gap 6 (3-11) 10/05/22 21:00 BUN 24 mg/dl (6-23) H 10/05/22 21:00 Creatinine 1.58 mg/dl (0.6-1.4) H 10/05/22 21:00 Est Cr Clr Drug Dosing 52.4 ml/min 10/05/22 21:00 Est GFR ( Amer) 51.0 ml/min 10/05/22 21:00 Est GFR (Non-Af Amer) 44.0 ml/min 10/05/22 21:00 BUN/Creatinine Ratio 15.2 (10-20) 10/05/22 21:00 Glucose 94 mg/dl (70-99(Fasting)) 10/05/22 21:00 Calcium 9.0 mg/dl (8.5-10.1) 10/05/22 21:00 Total Bilirubin 0.4 mg/dl (0.2-1.0) 10/05/22 21:00 AST 28 U/L (13-39) 10/05/22 21:00 ALT 18 U/L (7-52) 10/05/22 21:00 Alkaline Phosphatase 65 U/L (34-104) 10/05/22 21:00 Troponin I High Sens 10.0 pg/ml (0-20) 10/05/22 21:00 B-Natriuretic Peptide Cancelled 10/05/22 22:00 Total Protein 7.7 gm/dl (6.0-8.3) 10/05/22 21:00 Albumin 3.5 gm/dl (3.4-5.0) 10/05/22 21:00 Globulin 4.2 gm/dl (2.5-4.0) H 10/05/22 21:00 Albumin/Globulin Ratio 0.8 (0.9-2) L 10/05/22 21:00 Lipase 15 U/L (11-82) 10/05/22 21:00 Procalcitonin < 0.05 ng/ml (0-0.5) 10/05/22 21:00 SARS-CoV-2, RNA, NAAT NEGATIVE (NEGATIVE) 10/05/22 22:00 Impressions Chest X-Ray 10/05/22 21:01 XR chest 1V portable CLINICAL HISTORY: Chest pain, nonspecific COMPARISON STUDY: Chest radiograph September 19, 2022. FINDINGS: No pneumothorax or pleural effusion is noted. There has been interval development of hazy right lower lung opacity. Left lung is clear. Cardiomediastinal silhouette is stable. IMPRESSION: Interval development of hazy right lower lung opacity which favors pneumonia. Radiographic follow-up to ensure resolution is recommended. ACT 112: Negative or not required by law. Electronically signed by: Gerardo Patterson M.D. 10/05/2022 9:[address] 10/06/22 01:02 CT foot LT wo con CLINICAL HISTORY: left 5th toe gangrene and 1st ulcer. DM hx. osteo? COMPARISON STUDY: Left foot radiographs and CT of the left foot September 19, 2022. TECHNIQUE: Axial images of the left foot were obtained without IV contrast. Sagittal and coronal reconstructions were viewed. Automated exposure control was utilized for the study. A dose lowering technique was utilized adhering to the principles of ALARA. FINDINGS: A laceration of the left fifth toe is noted. There is no CT evidence for acute osteomyelitis. There is no acute fracture. Tarsometatarsal joints are intact. No soft tissue gas is present. Note is made of extensive subcutaneous fluid of the ankle and foot which has increased since CT of September 19, 2022. Moderate vascular calcification is present. Degenerative changes within the left foot are similar to prior CT. No evidence for acute osteomyelitis within the left first toe. IMPRESSION: 1. Left fifth toe laceration. No CT evidence for acute osteomyelitis within the left foot. No fracture. 2. Increase in left ankle and foot subcutaneous fluid. This could reflect edema or cellulitis. No fluid collection identified on unenhanced exam. No soft tissue gas. ACT 112: Negative or not required by law. Electronically signed by: Gerardo Patterson M.D. 10/06/2022 1:49 AM PG Care Time/CCT Total # of Minutes Spent Total Time Spent with Patient: Total time spent is greater than 50% in coordination of care (as documented) at patient's floor/unit and/or counseling patient: Coding Level of Care Code 43961 INT INP/OBS CARE 3/75MIN Diagnoses Gangrene of toe I96 Right lower lobe pneumonia J18.9 HTN (hypertension) I10 Hypertension type: unspecified Diabetes E11.9 Hyperlipidemia E78.5 CVA (cerebral infarction) I63.9 (1) HTN (hypertension) Hypertension type: unspecified Qualified Code(s): I10 - Essential (primary) hypertension
[2022-10-06] MEDS: VANCOMYCIN HCL 1,250 MG in SODIUM CHLORIDE 0.9% 250 ML IV SCH (06:09)
[2022-10-06] MEDS: hydrALAZINE TAB 50 MG TAB PO SCH ×3 (07:59→20:33)
[2022-10-06] MEDS: hydroCHLOROthiazide 25 MG TAB PO SCH (07:59)
[2022-10-06] MEDS: ATORVASTATIN 10 MG TAB PO SCH (08:00)
[2022-10-06] MEDS: lisinopril 40 MG TAB PO SCH (08:00)
[2022-10-06] MEDS: HYDROXYCHLOROQUINE SULFATE 200 MG TAB PO SCH (08:00)
[2022-10-06] MEDS: amLODIPine BESYLATE 5 MG TAB PO SCH (08:00)
[2022-10-06] MEDS: NORTRIPTYLINE HCL 25 MG CAP PO SCH ×2 (08:01→20:32)
[2022-10-06] MEDS: DOCUSATE SODIUM 100 MG CAP PO SCH ×2 (08:01→20:32)
[2022-10-06] MEDS: INSULIN ASPART PER UNIT SC SCH ×4 (08:39→21:36)
[2022-10-06] MEDS: LANTUS PER UNIT CHARGE SQ SCH ×2 (08:40→21:36)
--- NOTE | 2022-10-06 09:13 | Electrocardiogram Report ---
Test Reason : Blood Pressure : / mmHG Vent. Rate : 084 BPM Atrial Rate : 084 BPM P-R Int : 150 ms QRS Dur : 090 ms QT Int : 368 ms P-R-T Axes : 057 062 091 degrees QTc Int : 434 ms Poor data quality, interpretation may be adversely affected Normal sinus rhythm Diffuse Minor Nonspecific T wave abnormality Abnormal ECG When compared with ECG of 20-SEP-2022 06:10, No significant change was found Confirmed by Moi Eldridge ([id number]) on 10/06/2022 9:13:35 AM Referred By: [facility] Confirmed By:Moi Eldridge
[2022-10-06] MEDS: CEFEPIME 2,000 MG in SYRINGE 0 ML IV SCH ×2 (09:15→21:35)
--- NOTE | 2022-10-06 09:36 | Pharmacy Report ---
Pharmacy Vanc AUC Short Note - Date of Service October 06, 2022 - Assessment & Plan Assessment 67 year old M receiving vancomcyin and cefepime for possible pneumonia/toe infection. Foot CT was negative for osteomyelitis. MRSA nasal swab is pending, blood cultures pending. Zyvox listed on home med list prior to arrival. PMHx includes DM2, on Enbrel for RA, incarcerated, recent hospitalization Day #2 of antimicrobial therapy. Plan Vancomycin * AUC/TESSY is the preferred PK/PD target for vancomycin * AUC guided dosing is effective and associated with decreased risk of nephrotoxicity compared to traditional trough targets * Patient received loading dose of vancomycin 2000 mg x 1 last evening and then started on 1250 mg iv q 24 hrs * This dosing is estimated to achieve a trough level of ~15 mcg/ml, predicted to achieve target AUC/TESSY of 400-600 mg/L.hr and may be associated with a 11% risk of nephrotoxicity * Will consider ordering level if plan is to continue vancomycin >48 hours Pharmacy will continue to follow and will adjust dose/frequency as necessary. Thank you.
[2022-10-07] MEDS: VANCOMYCIN HCL 1,250 MG in SODIUM CHLORIDE 0.9% 250 ML IV SCH (05:16)
[2022-10-07 07:21] LABS: Hematocrit (blood only) 32.6 % (40.1-51.0); Hemoglobin 10.8 g/dl (14.0-18.0); Mean Corpuscular Hemoglobin 29.5 pg (25.0-34.0); Mean Corpuscular Hgb Conc 33.1 g/dL (32.0-36.0); Mean Corpuscular Volume 89.1 fL (80.0-100.0); Mean Platelet Volume 9.9 fL (9.4-12.4); Platelet Count 269 K/uL (130-400); RDW Standard Deviation 42.7 fL (36.4-46.3); Red Blood Count 3.66 M/uL (4.63-6.08); White Blood Count 4.48 K/ul (4.8-10.8)
[2022-10-07 07:47] LABS: BUN Creatinine Ratio 20.5 (10-20); Calcium 8.5 mg/dl (8.5-10.1); Creatinine Clr Calc Pharmacy 56.3 ml/min; Est GFR (African American) 56.1 ml/min; Est GFR (Non-African American) 48.4 ml/min; Potassium 4.4 mmol/L (3.5-5.1)
[2022-10-07] MEDS: amLODIPine BESYLATE 5 MG TAB PO SCH (08:09)
[2022-10-07] MEDS: ATORVASTATIN 10 MG TAB PO SCH (08:09)
[2022-10-07] MEDS: NORTRIPTYLINE HCL 25 MG CAP PO SCH ×2 (08:10→20:33)
[2022-10-07] MEDS: DOCUSATE SODIUM 100 MG CAP PO SCH ×2 (08:10→20:32)
[2022-10-07] MEDS: hydrALAZINE TAB 50 MG TAB PO SCH ×3 (08:10→20:33)
[2022-10-07] MEDS: HYDROXYCHLOROQUINE SULFATE 200 MG TAB PO SCH (08:10)
[2022-10-07] MEDS: hydroCHLOROthiazide 25 MG TAB PO SCH (08:10)
[2022-10-07] MEDS: lisinopril 40 MG TAB PO SCH (08:11)
[2022-10-07] MEDS: LANTUS PER UNIT CHARGE SQ SCH ×2 (08:32→20:42)
[2022-10-07] MEDS: INSULIN ASPART PER UNIT SC SCH ×4 (08:32→20:43)
[2022-10-07] MEDS: CEFEPIME 2,000 MG in SYRINGE 0 ML IV SCH ×2 (10:50→20:34)
--- NOTE | 2022-10-07 11:59 | Orthopedic Consultation ---
Date of Consultation October 07, 2022 Assessment & Plan (1) Diabetic foot ulcer: Continue IV antibiotics per medicine discretion Wound care nurse can continue care I did apply new dressing after removing 1 was placed this morning. Orthopedically, no evidence of osteomyelitis, wounds improving with wound care, and [facility] is cleared by medicine service. I, Dr. Tracey, saw and examined the patient and discussed the management with my PA. I reviewed my PAs note and agree with the documented findings and the plan of care I developed. Follow-up with [facility] as an outpatient. Please re-call if there are any orthopaedic issues. Present on Admission?: Yes History of Present Illness Reason for Consultation: Left foot diabetic ulcer of great toe, 4th toe, and fifth toe Requesting Physician: Santiago Tracey MD Attending Physician: Skip Martinez History of Present Illness This 67-year-old male inmate from [facility] is seen this morning in consultation for diabetic ulcerations to his left great toe and fifth toe. Patient was recently hospitalized a few weeks ago for the same issue and received IV antibiotics. He is currently receiving IV vancomycin. When I asked the patient why he was admitted again he stated that the medical staff sent him to the ER because he was coughing and complained of shortness of breath. Patient states that he has no shortness of breath at present but has been coughing persistently for the past few weeks. He denies chest pain, fever, chills, sweats, drainage from his ulcerations on the left foot or any additional numbness or tingling. Allergies Allergy/AdvReac Type Severity Reaction Status Date / Time No Known Allergies Allergy Unverified 10/05/22 22:25 Home Medications Medication Instructions Recorded Confirmed Type docusate sodium 100 mg tablet 100 mg PO BID 10/18/20 10/05/22 History etanercept 50 mg/mL (1 mL) 50 mg subcut WK 10/18/20 10/05/22 History subcutaneous syringe (Enbrel) folic acid 1 mg tablet 1 mg PO DAILY 10/18/20 10/05/22 History glucagon HCl 1 mg solution for 1 mg subcut DAILY PRN Hypoglycemia 10/18/20 10/05/22 History injection (Glucagon (HCl) Emergency Kit) hydroxychloroquine 200 mg tablet 200 mg PO DAILY 10/18/20 10/05/22 History nortriptyline 25 mg capsule 25 mg PO BID 10/18/20 10/05/22 History cyanocobalamin (vitamin B-12) 1,000 mcg PO DAILY 12/24/20 10/05/22 History 1,000 mcg tablet (Vitamin B-12) linezolid 600 mg tablet (Zyvox) 600 mg PO BID 14 days #28 tabs 09/24/22 10/05/22 Rx lisinopril 40 mg tablet 40 mg PO DAILY #90 tabs 09/24/22 10/05/22 Rx amlodipine 10 mg tablet 10 mg PO DAILY 10/05/22 10/05/22 History ammonium lactate 12 % lotion 1 applic topical BID 10/05/22 10/05/22 History atorvastatin 10 mg tablet 10 mg PO DAILY 10/05/22 10/05/22 History hydralazine 100 mg tablet 100 mg PO TID 10/05/22 10/05/22 History hydrochlorothiazide 25 mg tablet 25 mg PO DAILY 10/05/22 10/05/22 History insulin glargine 100 unit/mL 15 unit subcut QPM 10/05/22 10/05/22 History subcutaneous solution insulin glargine 100 unit/mL 24 unit subcut QAM 10/05/22 10/05/22 History subcutaneous solution insulin regular human 100 unit/mL 15 unit subcut BID 10/05/22 10/05/22 History injection solution (Novolin R Regular U-100 Insulin) Patient History Medical History Colitis CVA (cerebral infarction) (2015) Diabetes HTN (hypertension) Hyperlipidemia Orthostatic hypotension (2015) Syncope (2015) Surgical History S/P craniotomy Surgical history unknown Family History Other Family history non-contributory Social History Smoking Status: Former smoker Tobacco Type: Cigarettes Age Started Using Tobacco: 13; packs per day: 0.5; Smoking End Date: five years ago; Second Hand Exposure: No; Hx Alcohol Use: No Hx Substance Use: Yes Prescribed Medications: Marijuana Last Used Substance Other:: 2007 Substance Use Type Other:: K2 Preferred Language: Venezuelan Communication Ability: Effective Internet Merchant Required: No Beliefs That Will Affect Care: None marital status: Current Living Situation: Other Current Living Situation Comment: [facility] [employer] current occupational status: unemployed Other Information That Helps Us Care for You: No Feels Safe at Home: Yes Safety Concerns: Feels Safe At This Time Assistive Devices: None Review of Systems Review of Systems: All systems reviewed & are unremarkable except as noted in Subjective Physical Exam Physical Exam: Left foot: Dressing was removed from the patient's left foot. There is excoriated area over the medial aspect of the great toe from the tip to the IP joint. There is no surrounding erythema or sign of cellulitis. There is no drainage. There is no tenderness when the area is palpated. Patient has appropriate mobility of the digit. On the left 4th and fifth toe the patient has a dried eschar extending from the lateral aspect of the nail plate to the IP joint. There is no fluctuance. Area is very firm to palpation and nontender. Patient states that wound care nurse was in this morning to put a dressing on and she had stated that they look much better than they had at his previous hospital visit. Patient's peripheral pulses are palpable. Capillary fill is difficult to determine due to toenail onychomycosis. Patient was able to actively dorsi and plantarflex foot. He was able to detect light sensation to touch over the pads of all digits. He is neurovascularly intact in left lower extremity. Results & Data ([facility]) Vital Signs (Past 12 Hours) Vital Signs Temp Pulse Resp BP Pulse Ox O2 Del Method 10/07/22 07:00 Room Air 10/07/22 07:07 37.1 C 72 16 176/77 H 94 Room Air Laboratory Results Laboratory Results WBC 4.48 K/ul (4.8-10.8) L 10/07/22 06:57 RBC 3.66 M/uL (4.63-6.08) L 10/07/22 06:57 Hgb 10.8 g/dl (14.0-18.0) L 10/07/22 06:57 Hct 32.6 % (40.1-51.0) L 10/07/22 06:57 MCV 89.1 fL (80.0-100.0) 10/07/22 06:57 MCH 29.5 pg (25.0-34.0) 10/07/22 06:57 MCHC 33.1 g/dL (32.0-36.0) 10/07/22 06:57 RDW Std Deviation 42.7 fL (36.4-46.3) 10/07/22 06:57 RDW Coeff of Vidal 13.0 % (11.5-14.5) 10/07/22 06:57 Plt Count 269 K/uL (130-400) 10/07/22 06:57 MPV 9.9 fL (9.4-12.4) 10/07/22 06:57 Immature Gran % (Auto) 0.2 % 10/05/22 21:00 Neut % (Auto) 48.7 % 10/05/22 21:00 Lymph % (Auto) 29.6 % 10/05/22 21:00 [place] % (Auto) 15.3 % 10/05/22 21:00 Eos % (Auto) 5.2 % 10/05/22 21:00 Baso % (Auto) 1.0 % 10/05/22 21:00 Neut # (Auto) 2.56 K/uL (1.4-6.5) 10/05/22 21:00 Lymph # (Auto) 1.55 K/uL (1.2-3.4) 10/05/22 21:00 [place] # (Auto) 0.80 K/uL (0.24-0.82) 10/05/22 21:00 Eos # (Auto) 0.27 K/uL (0-0.50) 10/05/22 21:00 Baso # (Auto) 0.05 K/uL (0-0.2) 10/05/22 21:00 Immature Gran # (Auto) 0.01 K/uL (0.00-0.02) 10/05/22 21:00 ESR 44 mm/hr (0-20) H 10/06/22 05:40 Sodium 132 mmol/L (136-145) L 10/07/22 06:57 Potassium 4.4 mmol/L (3.5-5.1) 10/07/22 06:57 Chloride 102 mmol/L (98-107) 10/07/22 06:57 Carbon Dioxide 26 mmol/L (21-32) 10/07/22 06:57 Anion Gap 4 (3-11) 10/07/22 06:57 BUN 30 mg/dl (6-23) H 10/07/22 06:57 Creatinine 1.46 mg/dl (0.6-1.4) H 10/07/22 06:57 Est Cr Clr Drug Dosing 56.3 ml/min 10/07/22 06:57 Est GFR ( Amer) 56.1 ml/min 10/07/22 06:57 Est GFR (Non-Af Amer) 48.4 ml/min 10/07/22 06:57 BUN/Creatinine Ratio 20.5 (10-20) H 10/07/22 06:57 Glucose 201 mg/dl (70-99(Fasting)) H 10/07/22 06:57 POC Glucose 301 mg/dl (70-99) H* 10/07/22 20:24 Calcium 8.5 mg/dl (8.5-10.1) 10/07/22 06:57 Total Bilirubin 0.4 mg/dl (0.2-1.0) 10/05/22 21:00 AST 28 U/L (13-39) 10/05/22 21:00 ALT 18 U/L (7-52) 10/05/22 21:00 Alkaline Phosphatase 65 U/L (34-104) 10/05/22 21:00 Troponin I High Sens 10.0 pg/ml (0-20) 10/05/22 21:00 C-Reactive Protein 0.96 mg/dl (0-0.5) H 10/05/22 23:04 B-Natriuretic Peptide Cancelled 10/05/22 22:00 Total Protein 7.7 gm/dl (6.0-8.3) 10/05/22 21:00 Albumin 3.5 gm/dl (3.4-5.0) 10/05/22 21:00 Globulin 4.2 gm/dl (2.5-4.0) H 10/05/22 21:00 Albumin/Globulin Ratio 0.8 (0.9-2) L 10/05/22 21:00 Lipase 15 U/L (11-82) 10/05/22 21:00 Procalcitonin < 0.05 ng/ml (0-0.5) 10/05/22 21:00 Nasal Screen MRSA (PCR) Negative (Negative) 10/06/22 Unknown SARS-CoV-2, RNA, NAAT NEGATIVE (NEGATIVE) 10/05/22 22:[address] 10/06/22 01:02 CT foot LT wo con CLINICAL HISTORY: left 5th toe gangrene and 1st ulcer. DM hx. osteo? COMPARISON STUDY: Left foot radiographs and CT of the left foot September 19, 2022. TECHNIQUE: Axial images of the left foot were obtained without IV contrast. Sagittal and coronal reconstructions were viewed. Automated exposure control was utilized for the study. A dose lowering technique was utilized adhering to the principles of ALARA. FINDINGS: A laceration of the left fifth toe is noted. There is no CT evidence for acute osteomyelitis. There is no acute fracture. Tarsometatarsal joints are intact. No soft tissue gas is present. Note is made of extensive subcutaneous fluid of the ankle and foot which has increased since CT of September 19, 2022. Moderate vascular calcification is present. Degenerative changes within the left foot are similar to prior CT. No evidence for acute osteomyelitis within the left first toe. IMPRESSION: 1. Left fifth toe laceration. No CT evidence for acute osteomyelitis within the left foot. No fracture. 2. Increase in left ankle and foot subcutaneous fluid. This could reflect edema or cellulitis. No fluid collection identified on unenhanced exam. No soft tissue gas. ACT 112: Negative or not required by law. Electronically signed by: Gerardo Patterson M.D. 10/06/2022 1:49 AM Chest X-Ray 10/07/22 14:14 SINGLE VIEW CHEST CLINICAL HISTORY: Dyspnea FINDINGS: An AP, portable, upright chest radiograph is compared to study dated 10/05/2022. The cardiomediastinal silhouette is unremarkable noting atherosclerotic calcification of the thoracic aorta. There is increasing airspace consolidation at the right lung base. Atelectasis is seen at the left lung base. A small right pleural effusion is not excluded. No pneumothorax is seen. The skeletal structures are osteopenic. The bony thorax is grossly intact. IMPRESSION: 1. There is increasing airspace consolidation at the right lung base. Correlate clinically for evidence of pneumonia/aspiration pneumonitis. Follow-up to resolution is recommended. Follow-up radiographs should include both PA and lateral projections. 2. A right pleural effusion is not excluded. ACT 112: Negative or not required by law. Electronically signed by: Isra Webster M.D. 10/07/2022 3:51 PM Medications Administered Laboratory Results WBC 4.48 K/ul (4.8-10.8) L 10/07/22 06:57 RBC 3.66 M/uL (4.63-6.08) L 10/07/22 06:57 Hgb 10.8 g/dl (14.0-18.0) L 10/07/22 06:57 Hct 32.6 % (40.1-51.0) L 10/07/22 06:57 MCV 89.1 fL (80.0-100.0) 10/07/22 06:57 MCH 29.5 pg (25.0-34.0) 10/07/22 06:57 MCHC 33.1 g/dL (32.0-36.0) 10/07/22 06:57 RDW Std Deviation 42.7 fL (36.4-46.3) 10/07/22 06:57 RDW Coeff of Vidal 13.0 % (11.5-14.5) 10/07/22 06:57 Plt Count 269 K/uL (130-400) 10/07/22 06:57 MPV 9.9 fL (9.4-12.4) 10/07/22 06:57 Immature Gran % (Auto) 0.2 % 10/05/22 21:00 Neut % (Auto) 48.7 % 10/05/22 21:00 Lymph % (Auto) 29.6 % 10/05/22 21:00 [place] % (Auto) 15.3 % 10/05/22 21:00 Eos % (Auto) 5.2 % 10/05/22 21:00 Baso % (Auto) 1.0 % 10/05/22 21:00 Neut # (Auto) 2.56 K/uL (1.4-6.5) 10/05/22 21:00 Lymph # (Auto) 1.55 K/uL (1.2-3.4) 10/05/22 21:00 [place] # (Auto) 0.80 K/uL (0.24-0.82) 10/05/22 21:00 Eos # (Auto) 0.27 K/uL (0-0.50) 10/05/22 21:00 Baso # (Auto) 0.05 K/uL (0-0.2) 10/05/22 21:00 Immature Gran # (Auto) 0.01 K/uL (0.00-0.02) 10/05/22 21:00 ESR 44 mm/hr (0-20) H 10/06/22 05:40 Sodium 132 mmol/L (136-145) L 10/07/22 06:57 Potassium 4.4 mmol/L (3.5-5.1) 10/07/22 06:57 Chloride 102 mmol/L (98-107) 10/07/22 06:57 Carbon Dioxide 26 mmol/L (21-32) 10/07/22 06:57 Anion Gap 4 (3-11) 10/07/22 06:57 BUN 30 mg/dl (6-23) H 10/07/22 06:57 Creatinine 1.46 mg/dl (0.6-1.4) H 10/07/22 06:57 Est Cr Clr Drug Dosing 56.3 ml/min 10/07/22 06:57 Est GFR ( Amer) 56.1 ml/min 10/07/22 06:57 Est GFR (Non-Af Amer) 48.4 ml/min 10/07/22 06:57 BUN/Creatinine Ratio 20.5 (10-20) H 10/07/22 06:57 Glucose 201 mg/dl (70-99(Fasting)) H 10/07/22 06:57 POC Glucose 157 mg/dl (70-99) H 10/07/22 08:20 Calcium 8.5 mg/dl (8.5-10.1) 10/07/22 06:57 Total Bilirubin 0.4 mg/dl (0.2-1.0) 10/05/22 21:00 AST 28 U/L (13-39) 10/05/22 21:00 ALT 18 U/L (7-52) 10/05/22 21:00 Alkaline Phosphatase 65 U/L (34-104) 10/05/22 21:00 Troponin I High Sens 10.0 pg/ml (0-20) 10/05/22 21:00 C-Reactive Protein 0.96 mg/dl (0-0.5) H 10/05/22 23:04 B-Natriuretic Peptide Cancelled 10/05/22 22:00 Total Protein 7.7 gm/dl (6.0-8.3) 10/05/22 21:00 Albumin 3.5 gm/dl (3.4-5.0) 10/05/22 21:00 Globulin 4.2 gm/dl (2.5-4.0) H 10/05/22 21:00 Albumin/Globulin Ratio 0.8 (0.9-2) L 10/05/22 21:00 Lipase 15 U/L (11-82) 10/05/22 21:00 Procalcitonin < 0.05 ng/ml (0-0.5) 10/05/22 21:00 Nasal Screen MRSA (PCR) Negative (Negative) 10/06/22 Unknown SARS-CoV-2, RNA, NAAT NEGATIVE (NEGATIVE) 10/05/22 22:00 Impressions Chest X-Ray 10/05/22 21:01 XR chest 1V portable CLINICAL HISTORY: Chest pain, nonspecific COMPARISON STUDY: Chest radiograph September 19, 2022. FINDINGS: No pneumothorax or pleural effusion is noted. There has been interval development of hazy right lower lung opacity. Left lung is clear. Cardiomediastinal silhouette is stable. IMPRESSION: Interval development of hazy right lower lung opacity which favors pneumonia. Radiographic follow-up to ensure resolution is recommended. ACT 112: Negative or not required by law. Electronically signed by: Gerardo Patterson M.D. 10/05/2022 9:[address] 10/06/22 01:02 CT foot LT wo con CLINICAL HISTORY: left 5th toe gangrene and 1st ulcer. DM hx. osteo? COMPARISON STUDY: Left foot radiographs and CT of the left foot September 19, 2022. TECHNIQUE: Axial images of the left foot were obtained without IV contrast. Sagittal and coronal reconstructions were viewed. Automated exposure control was utilized for the study. A dose lowering technique was utilized adhering to the principles of ALARA. FINDINGS: A laceration of the left fifth toe is noted. There is no CT evidence for acute osteomyelitis. There is no acute fracture. Tarsometatarsal joints are intact. No soft tissue gas is present. Note is made of extensive subcutaneous fluid of the ankle and foot which has increased since CT of September 19, 2022. Moderate vascular calcification is present. Degenerative changes within the left foot are similar to prior CT. No evidence for acute osteomyelitis within the left first toe.
[2022-10-07] MEDS ORDERED: LACTATED RINGER'S 1,000 ML IV SCH (14:15)
--- NOTE | 2022-10-07 15:52 | XRay Report ---
SINGLE VIEW CHEST CLINICAL HISTORY: Dyspnea FINDINGS: An AP, portable, upright chest radiograph is compared to study dated 10/05/2022. The cardiom ediastinal silhouette is unremarkable noting atherosclerotic calcification of the thoracic aorta. The re is increasing airspace consolidation at the right lung base. Atelectasis is seen at the left lung base. A small right pleural effusion is not excluded. No pneumothorax is seen. The skeletal structure s are osteopenic. The bony thorax is grossly intact. IMPRESSION: 1. There is increasing airspace consolidation at the right lung base. Correlate clinically for eviden ce of pneumonia/aspiration pneumonitis. Follow-up to resolution is recommended. Follow-up radiographs should include both PA and lateral projections. 2. A right pleural effusion is not excluded. ACT 112: Negative or not required by law. Electronically signed by: Isra Webster M.D. 10/07/2022 3:51 PM
--- NOTE | 2022-10-07 17:19 | XCELERA ---
[id number] \\[id number]
--- NOTE | 2022-10-07 22:06 | Hospitalist Progress Note ---
Date of Service October 07, 2022 Assessment & Plan (1) Right lower lobe pneumonia: Plan: Patient endorses productive cough and SOB. Afebrile, no leukocytosis, normal procalcitonin. Presently with adequate oxygenation on room air. Patient is on Enbrel for RA, immunosuppressed. -Vancomycin and Cefepime -XR showing possible RLL pneumonia. -will repeat chest x ray in AM. -repeat blood work. (2) Gangrene of toe: Plan: No osteomyelitis appreciated on CT, consider MRI -Vancomycin and Cefepime -Wound care -Pain control with Tylenol (3) HTN (hypertension): Plan: Chronic. Elevated presently at 163/100 -Continue Amlodipine, Hydralazine, HCTZ -Continue Lisinopril -Monitor (4) Diabetes: Plan: Chronic. 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 No new findings -Aspiration precautions Admission and Anticipated Discharge Date Admission Date: October 06, 2022 Subjective Patient reports his main concern has been his breathing. D?W [facility], reason for transfer was the possibility of pneumonia. Review of Systems Review of Systems: All systems reviewed & are unremarkable except as noted in HPI & below Physical Exam Physical Exam: General: patient resting comfortably, NAD, non-toxic in appearance, AA&O x 4 Skin: warm, dry, intact, no rashes or lesions HEENT: NC/AT, PERRL, EOMI, anicteric sclera, conjunctiva without injection, external ear normal to inspection and nontender, nares patent, moist mucus membranes, dentition intact, no oropharyngeal lesions, neck supple, trachea midline, no LAD, no thyromegaly, no JVD Heart: +S1/S2, regular, no m/r/g Lungs: equal air entry bilaterally, no rales/rhonchi/wheezes Abd: +BS, soft, NT/ND, no masses/organomegaly/ascites Ext: warm, 2+ pulses in UE/LE bilaterally, no clubbing/cyanosis or edema, left foot with ulceration on great toe with granulation tissue, no bleeding or evidence of active infection. 5th toe with black eschar present on lateral aspect, ulceration on 4th toe as well with minimal purulence present Neuro: nonfocal, patient AA&O x 4, speech intact, no facial droop, moving all extremities on command with equal strength 5/5 Results & Data Results & Data ([facility]) Vital Signs (Past 12 Hours) Vital Signs Temp Pulse Resp BP Pulse Ox O2 Del Method 10/07/22 21:15 37.3 C 83 18 175/77 H 96 Room Air 10/07/22 16:16 37.0 C 83 14 152/74 H 95 Room Air PG Care Time/CCT Total # of Minutes Spent Total Time Spent with Patient: Total time spent is greater than 50% in coordination of care (as documented) at patient's floor/unit and/or counseling patient: Coding Level of Care Code 20919 SUB INP/OBS CARE 2/35MIN Diagnoses Right lower lobe pneumonia J18.9 Gangrene of toe I96 HTN (hypertension) I10 Hypertension type: unspecified Diabetes E11.9 Hyperlipidemia E78.5 CVA (cerebral infarction) I63.9 (1) HTN (hypertension) Hypertension type: unspecified Qualified Code(s): I10 - Essential (primary) hypertension
[2022-10-08] MEDS ORDERED: VANCOMYCIN LEVEL ONE (05:30)
[2022-10-08 06:06] LABS: Hematocrit (blood only) 32.1 % (40.1-51.0); Hemoglobin 10.6 g/dl (14.0-18.0); Mean Corpuscular Hemoglobin 29.7 pg (25.0-34.0); Mean Corpuscular Volume 89.9 fL (80.0-100.0); Mean Platelet Volume 9.8 fL (9.4-12.4); Platelet Count 260 K/uL (130-400); RDW Coefficient of Variation 12.7 % (11.5-14.5); RDW Standard Deviation 41.9 fL (36.4-46.3); Red Blood Count 3.57 M/uL (4.63-6.08); White Blood Count 3.87 K/ul (4.8-10.8)
[2022-10-08] MEDS: VANCOMYCIN HCL 1,250 MG in SODIUM CHLORIDE 0.9% 250 ML IV SCH (06:13)
[2022-10-08 06:32] LABS: BUN Creatinine Ratio 22.5 (10-20); C Reactive Protein 0.53 mg/dl (0-0.5); Calcium 8.6 mg/dl (8.5-10.1); Creatinine Clr Calc Pharmacy 63.8 ml/min; Est GFR (African American) 65.1 ml/min; Est GFR (Non-African American) 56.2 ml/min; Potassium 4.4 mmol/L (3.5-5.1)
[2022-10-08] MEDS: ATORVASTATIN 10 MG TAB PO SCH (07:28)
[2022-10-08] MEDS: hydrALAZINE TAB 50 MG TAB PO SCH ×3 (07:28→20:31)
[2022-10-08] MEDS: NORTRIPTYLINE HCL 25 MG CAP PO SCH ×2 (07:28→20:31)
[2022-10-08] MEDS: amLODIPine BESYLATE 5 MG TAB PO SCH (07:29)
[2022-10-08] MEDS: HYDROXYCHLOROQUINE SULFATE 200 MG TAB PO SCH (07:29)
[2022-10-08] MEDS: hydroCHLOROthiazide 25 MG TAB PO SCH (07:29)
[2022-10-08] MEDS: lisinopril 40 MG TAB PO SCH (07:29)
[2022-10-08] MEDS: DOCUSATE SODIUM 100 MG CAP PO SCH ×2 (07:30→20:30)
[2022-10-08] MEDS: INSULIN ASPART PER UNIT SC SCH ×4 (09:14→20:39)
[2022-10-08] MEDS: LANTUS PER UNIT CHARGE SQ SCH ×2 (09:15→20:39)
--- NOTE | 2022-10-08 09:44 | XRay Report ---
XR chest 2V PA/lateral CLINICAL HISTORY: hypoxia TECHNIQUE: 2 views of the chest were obtained. Comparison: Comparison is made to chest radiograph 10/07/2022 FINDINGS: No lines and tubes are seen. The cardiomediastinal silhouette is normal. Right lower lung airspace op acity is seen. There is a small right pleural effusion. IMPRESSION: 1. Right lower lung airspace opacity is increased from prior exam and may represent aspiration and/o r pneumonia. 2. Small right pleural effusion. ACT 112: Negative or not required by law. Electronically signed by: Dane Colmenares M.D. 10/08/2022 9:43 AM
[2022-10-08] MEDS: CEFEPIME 2,000 MG in SYRINGE 0 ML IV SCH ×2 (10:36→20:39)
[2022-10-08] MEDS: LINEZOLID 600 MG/300 ML BAG IV SCH (13:15)
--- NOTE | 2022-10-08 16:12 | Hospitalist Progress Note ---
Date of Service October 08, 2022 Assessment & Plan (1) Right lower lobe pneumonia: Plan: Patient endorses productive cough and SOB. Afebrile, no leukocytosis, normal procalcitonin. Presently with adequate oxygenation on room air. Patient is on Enbrel for RA, immunosuppressed. -Vancomycin and Cefepime -XR showing possible RLL pneumonia. -chest x ray on 10/08 continues to show right lower lobe pneumonia. -given that patient was on linezolid in the past for his gangrene, will resume this. also vanco level was low, which likely was not treating his infection. will continue cefepime. will treat for 5 days. will also obtain a speech eval. (2) Gangrene of toe: Plan: No osteomyelitis appreciated on CT, consider MRI -Vancomycin and Cefepime -Wound care -Pain control with Tylenol (3) HTN (hypertension): Plan: Chronic. Elevated presently at 163/100 -Continue Amlodipine, Hydralazine, HCTZ -Continue Lisinopril -Monitor (4) Diabetes: Plan: Chronic. 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 No new findings -Aspiration precautions Admission and Anticipated Discharge Date Admission Date: October 06, 2022 Subjective Patient reports his cough has improved. Review of Systems Review of Systems: All systems reviewed & are unremarkable except as noted in HPI & below Physical Exam Physical Exam: General: patient resting comfortably, NAD, non-toxic in appearance, AA&O x 4 Skin: warm, dry, intact, no rashes or lesions HEENT: NC/AT, PERRL, EOMI, anicteric sclera, conjunctiva without injection, external ear normal to inspection and nontender, nares patent, moist mucus membranes, dentition intact, no oropharyngeal lesions, neck supple, trachea midline, no LAD, no thyromegaly, no JVD Heart: +S1/S2, regular, no m/r/g Lungs: equal air entry bilaterally, no rales/rhonchi/wheezes Abd: +BS, soft, NT/ND, no masses/organomegaly/ascites Ext: warm, 2+ pulses in UE/LE bilaterally, no clubbing/cyanosis or edema, left foot with ulceration on great toe with granulation tissue, no bleeding or evidence of active infection. 5th toe with black eschar present on lateral aspect, ulceration on 4th toe as well with minimal purulence present Neuro: nonfocal, patient AA&O x 4, speech intact, no facial droop, moving all extremities on command with equal strength 5/5 Results & Data Results & Data ([facility]) Vital Signs (Past 12 Hours) Vital Signs Temp Pulse Resp BP Pulse Ox O2 Del Method 10/08/22 15:45 37.0 C 82 18 159/78 H 94 Room Air 10/08/22 12:02 159/76 H 10/08/22 07:15 37.0 C 82 18 204/95 H 97 Room Air PG Care Time/CCT Total # of Minutes Spent Total Time Spent with Patient: Total time spent is greater than 50% in coordination of care (as documented) at patient's floor/unit and/or counseling patient: Coding Level of Care Code 70621 SUB INP/OBS CARE 2/35MIN Diagnoses Right lower lobe pneumonia J18.9 Gangrene of toe I96 HTN (hypertension) I10 Hypertension type: unspecified Diabetes E11.9 Hyperlipidemia E78.5 CVA (cerebral infarction) I63.9 (1) HTN (hypertension) Hypertension type: unspecified Qualified Code(s): I10 - Essential (primary) hypertension
[2022-10-08] MEDS ORDERED: VANCOMYCIN HCL 1,000 MG in SODIUM CHLORIDE 0.9% 250 ML IV SCH (17:00)
[2022-10-09] MEDS: LINEZOLID 600 MG/300 ML BAG IV SCH ×2 (01:07→13:18)
[2022-10-09 06:11] LABS: Hematocrit (blood only) 30.2 % (40.1-51.0); Hemoglobin 10.1 g/dl (14.0-18.0); Mean Corpuscular Hemoglobin 29.4 pg (25.0-34.0); Mean Corpuscular Hgb Conc 33.4 g/dL (32.0-36.0); Mean Corpuscular Volume 87.8 fL (80.0-100.0); Mean Platelet Volume 9.8 fL (9.4-12.4); Platelet Count 222 K/uL (130-400); RDW Coefficient of Variation 12.5 % (11.5-14.5); Red Blood Count 3.44 M/uL (4.63-6.08); White Blood Count 4.17 K/ul (4.8-10.8)
[2022-10-09 06:33] LABS: Anion Gap 4 (3-11); BUN Creatinine Ratio 25.6 (10-20); Blood Urea Nitrogen 33 mg/dl (6-23); C Reactive Protein < 0.50 mg/dl (0-0.5); Calcium 8.4 mg/dl (8.5-10.1); Carbon Dioxide 27 mmol/L (21-32); Chloride 99 mmol/L (98-107); Creatinine Clr Calc Pharmacy 63.8 ml/min; Est GFR (African American) 65.1 ml/min; Est GFR (Non-African American) 56.2 ml/min; Glucose 247 mg/dl (70-99(Fasting)); Potassium 4.4 mmol/L (3.5-5.1); Sodium 130 mmol/L (136-145)
[2022-10-09] MEDS: DOCUSATE SODIUM 100 MG CAP PO SCH ×2 (08:53→20:37)
[2022-10-09] MEDS: amLODIPine BESYLATE 5 MG TAB PO SCH (08:53)
[2022-10-09] MEDS: lisinopril 40 MG TAB PO SCH (08:53)
[2022-10-09] MEDS: ATORVASTATIN 10 MG TAB PO SCH (08:53)
[2022-10-09] MEDS: hydroCHLOROthiazide 25 MG TAB PO SCH (08:53)
[2022-10-09] MEDS: HYDROXYCHLOROQUINE SULFATE 200 MG TAB PO SCH (08:53)
[2022-10-09] MEDS: hydrALAZINE TAB 50 MG TAB PO SCH ×3 (08:54→20:37)
[2022-10-09] MEDS: NORTRIPTYLINE HCL 25 MG CAP PO SCH ×2 (08:54→20:38)
[2022-10-09] MEDS: LANTUS PER UNIT CHARGE SQ SCH ×2 (09:05→20:48)
[2022-10-09] MEDS: INSULIN ASPART PER UNIT SC SCH ×4 (09:06→20:48)
[2022-10-09] MEDS: CEFEPIME 2,000 MG in SYRINGE 0 ML IV SCH ×2 (09:06→20:39)
--- NOTE | 2022-10-09 21:41 | Hospitalist Progress Note ---
Date of Service October 09, 2022 Assessment & Plan (1) Right lower lobe pneumonia: Plan: Patient endorses productive cough and SOB. Afebrile, no leukocytosis, normal procalcitonin. Presently with adequate oxygenation on room air. Patient is on Enbrel for RA, immunosuppressed. -Vancomycin and Cefepime -XR showing possible RLL pneumonia. -chest x ray on 10/08 continues to show right lower lobe pneumonia. -given that patient was on linezolid in the past for his gangrene, will resume this. also vanco level was low, which likely was not treating his infection. will continue cefepime. will treat for 5 days. will also obtain a speech eval on 10/10. Antcipate discharge then. (2) Gangrene of toe: Plan: No osteomyelitis appreciated on CT, consider MRI -Vancomycin and Cefepime -Wound care -Pain control with Tylenol (3) HTN (hypertension): Plan: Chronic. Elevated presently at 163/100 -Continue Amlodipine, Hydralazine, HCTZ -Continue Lisinopril -Monitor (4) Diabetes: Plan: Chronic. 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 No new findings -Aspiration precautions Admission and Anticipated Discharge Date Admission Date: October 06, 2022 Subjective 67 yo male reports he is breathing better today. He has no new complaints. Review of Systems Review of Systems: All systems reviewed & are unremarkable except as noted in HPI & below Physical Exam Physical Exam: General: patient resting comfortably, NAD, non-toxic in appearance, AA&O x 4 Skin: warm, dry, intact, no rashes or lesions HEENT: NC/AT, PERRL, EOMI, anicteric sclera, conjunctiva without injection, external ear normal to inspection and nontender, nares patent, moist mucus membranes, dentition intact, no oropharyngeal lesions, neck supple, trachea midline, no LAD, no thyromegaly, no JVD Heart: +S1/S2, regular, no m/r/g Lungs: equal air entry bilaterally, no rales/rhonchi/wheezes Abd: +BS, soft, NT/ND, no masses/organomegaly/ascites Ext: warm, 2+ pulses in UE/LE bilaterally, no clubbing/cyanosis or edema, left foot with ulceration on great toe with granulation tissue, no bleeding or evidence of active infection. 5th toe with black eschar present on lateral aspect, ulceration on 4th toe as well with minimal purulence present Neuro: nonfocal, patient AA&O x 4, speech intact, no facial droop, moving all extremities on command with equal strength 5/5 Results & Data Results & Data ([facility]) Vital Signs (Past 12 Hours) Vital Signs Temp Pulse Resp BP Pulse Ox O2 Del Method 10/09/22 20:33 37.1 C 82 18 162/80 H 95 Room Air 10/09/22 10:00 Room Air 10/09/22 16:27 37.0 C 71 16 139/72 97 Room Air PG Care Time/CCT Total # of Minutes Spent Total Time Spent with Patient: Total time spent is greater than 50% in coordination of care (as documented) at patient's floor/unit and/or counseling patient: Coding Level of Care Code 63326 SUB INP/OBS CARE 2/35MIN Diagnoses Right lower lobe pneumonia J18.9 Gangrene of toe I96 HTN (hypertension) I10 Hypertension type: unspecified Diabetes E11.9 Hyperlipidemia E78.5 CVA (cerebral infarction) I63.9 (1) HTN (hypertension) Hypertension type: unspecified Qualified Code(s): I10 - Essential (primary) hypertension
[2022-10-10] MEDS: LINEZOLID 600 MG/300 ML BAG IV SCH ×2 (00:05→11:39)
[2022-10-10] MEDS: HYDROXYCHLOROQUINE SULFATE 200 MG TAB PO SCH (08:22)
[2022-10-10] MEDS: hydrALAZINE TAB 50 MG TAB PO SCH ×3 (08:22→20:33)
[2022-10-10] MEDS: hydroCHLOROthiazide 25 MG TAB PO SCH (08:22)
[2022-10-10] MEDS: lisinopril 40 MG TAB PO SCH (08:22)
[2022-10-10] MEDS: ATORVASTATIN 10 MG TAB PO SCH (08:22)
[2022-10-10] MEDS: NORTRIPTYLINE HCL 25 MG CAP PO SCH ×2 (08:22→20:34)
[2022-10-10] MEDS: DOCUSATE SODIUM 100 MG CAP PO SCH ×2 (08:23→20:27)
[2022-10-10] MEDS: amLODIPine BESYLATE 5 MG TAB PO SCH (08:23)
[2022-10-10] MEDS: INSULIN ASPART PER UNIT SC SCH ×4 (08:26→20:51)
[2022-10-10] MEDS: LANTUS PER UNIT CHARGE SQ SCH ×2 (08:26→21:03)
[2022-10-10] MEDS: CEFEPIME 2,000 MG in SYRINGE 0 ML IV SCH ×2 (10:11→21:42)
[2022-10-10] MEDS ORDERED: INSULIN ASPART PER UNIT SC ONE (13:30)
--- NOTE | 2022-10-10 19:51 | Discharge Summary ---
Date of Service October 10, 2022 Admission HPI Per Admitting Provider Kwaku Ashley is a 67yo male with history of RA on Enbrel, DM, HTN and HLP, prior hemorrhagic CVA s/p craniotomy with residual minor delay in speech and some LLE weakness presenting from [facility] with complaint of SOB as well as increased edema of bilateral LE and worsening of diabetic ulcers on his LLE. Patient has been in the [facility] at [facility] and has been receiving Linezolid for his LLE ulcers. He was sent in with concern for worsening. No report of fever, chills, nausea, chest pain, abdominal pain, vomiting or diarrhea. He is coughing up green sputum. Reports some purulent discharge from his foot ulcers on occasion. Discharge Data Allergies Allergy/AdvReac Type Severity Reaction Status Date / Time No Known Allergies Allergy Unverified 10/05/22 22:25 Consultations 10/07/22 10:39 Consult Orthopedic Surgery Routine Ordered Studies 10/06/22 01:02 CT foot LT wo con Stat Hospital Course (1) Right lower lobe pneumonia: Patient endorses productive cough and SOB. Afebrile, no leukocytosis, normal procalcitonin. Presently with adequate oxygenation on room air. Patient is on Enbrel for RA, immunosuppressed. -Vancomycin and Cefepime -XR showing possible RLL pneumonia. -chest x ray on 10/08 continues to show right lower lobe pneumonia. -given that patient was on linezolid in the past for his gangrene, will resume this. also vanco level was low, which likely was not treating his infection. will continue cefepime. will treat for 5 days. will also obtain a speech eval on 10/10. Antcipate discharge then. (2) Gangrene of toe: No osteomyelitis appreciated on CT, consider MRI -Vancomycin and Cefepime -Wound care -Pain control with Tylenol (3) HTN (hypertension): Chronic. Elevated presently at 163/100 -Continue Amlodipine, Hydralazine, HCTZ -Continue Lisinopril -Monitor (4) Diabetes: Chronic. 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 No new findings -Aspiration precautions Discharge Plan Discharge Items Reason For Visit: FOOT ULCER, PNA Follow-up/Referrals: Luc BACA [Primary Care Provider] - Medications and DC Order Prescriptions: No Action nortriptyline 25 mg Capsule 25 mg PO BID folic acid 1 mg Tablet 1 mg PO DAILY hydroxychloroquine 200 mg Tablet 200 mg PO DAILY docusate sodium 100 mg Tablet 100 mg PO BID Enbrel 50 mg/mL (1 mL) Syringe 50 mg SUBCUT WK Rx Instructions: wed glucagon HCl [Glucagon (HCl) Emergency Kit] 1 mg Recon Soln 1 mg subcut DAILY PRN (Reason: Hypoglycemia) hydralazine 100 mg Tablet 100 mg PO TID Rx Instructions: hold if blood pressure less than 110/60 atorvastatin 10 mg Tablet 10 mg PO DAILY amlodipine 10 mg Tablet 10 mg PO DAILY Novolin R Regular U-100 Insuln 100 unit/mL Solution 15 unit SUBCUT BID Rx Instructions: plus sliding scale for blood sugar levels above 200 insulin glargine 100 unit/mL Solution 15 unit SUBCUT QPM insulin glargine 100 unit/mL Solution 24 unit SUBCUT QAM ammonium lactate 12 % Lotion 1 applic TOPICAL BID hydrochlorothiazide 25 mg Tablet 25 mg PO DAILY cyanocobalamin (vitamin B-12) [Vitamin B-12] 1,000 mcg Tablet 1,000 mcg PO DAILY lisinopril 40 mg tablet 40 mg PO DAILY Qty: 90 0RF linezolid [Zyvox] 600 mg tablet 600 mg PO BID 14 Days Qty: 28 0RF Rx Instructions: stop 10/08/22 Admission Data Admit Date/Time: 10/06/22 01:26 Attending Provider: Skip Martinez Admit Provider: Melody Ahuja Primary Care Provider: Luc BACA Other Providers: Santiago Tracey ; Sher Paige ; Mega Rodriguez ; Tari Ferrell ; Analy Pike ; Mayco Epps ; Gentry Polo ; Luis Grant ; Luis Langley ; Steff Lynch ; Suyapa Steven ; Kyara Gr ; Sandra Ngo ; Shalonda Nuno ; Nanette Xie ; Regino Mo ; Francisco Javier Rainey ; Kirk Jose. Coding Diagnoses Right lower lobe pneumonia J18.9 Gangrene of toe I96 HTN (hypertension) I10 Hypertension type: unspecified Diabetes E11.9 Hyperlipidemia E78.5 CVA (cerebral infarction) I63.9
== END 2022-10-11 00:28 | DRG 299 ==
LOC: ED 20:35 → 3E 10-06 01:26 → SUATTDRO 10-06 01:26 → 3E 10-06 02:42

== ENCOUNTER 2023-09-15 09:24 | Inpatient (IN) ==
[2023-09-15] MEDS ORDERED: PIPERACILLIN/TAZOBACTAM 4.5 GM/100 ML BAG IV ONE (09:52)
--- NOTE | 2023-09-15 09:55 | Emergency Department Note ---
Impression & Plan Osteomyelitis, Cellulitis of foot, left, Diabetic ulcer of foot with fat layer exposed ED Provider Note NAME: DEBORAH [id number] JOSUE AGE: 68 SEX: M : 1955 ARRIVES VIA: Walk-In INFORMANT: Patient, ED PROVIDER(S): Benito Crowell DO CHIEF COMPLAINT: Foot swelling HPI: The patient is a 68-year-old male who presented to the emergency department for an evaluation of foot swelling. He had foot swelling for a few weeks which slowly has been worsening. He was started on antibiotic at the care home. They were unable to get him into the wound care center so they sent him to the emergency department today. ROS: See above HPI for pertinent positives & negatives. A total of 10 systems reviewed and were otherwise negative. PAST MEDICAL HISTORY: See Below PAST SURGICAL HISTORY: See Below FAMILY HISTORY: See Below SOCIAL HISTORY: See Below HOME MEDICATIONS: See Below ALLERGIES: See Below VITALS: See Below PHYSICAL EXAMINATION: GENERAL: Patient is awake alert in no acute distress patient is resting comfortably and showing no signs of anxiety EYES: The conjunctivae are clear. The pupils are round and reactive. EARS, NOSE, MOUTH AND THROAT: The nose is without any evidence of any deformity. NECK: The neck is nontender and supple. RESPIRATORY: Normal respiratory effort is noted there is no evidence of wheezing rhonchi or rales CARDIOVASCULAR: Regular rate and rhythm noted there no murmurs rubs or gallops normal S1 normal S2. GASTROINTESTINAL: The abdomen is soft. Abdomen is nontender. MUSCULOSKELETAL/EXTREMITIES: There is no evidence of gross deformity full range of motion is noted in the hips and shoulders. SKIN: There is swelling on the left foot. There is an ulceration on the first and second toes on the left foot. Skin was warm and dry. Pulses were diminished but symmetric in both feet. NEUROLOGIC: Patient is awake alert and oriented x3 MEDICAL DECISION MAKING: The patient is a 68-year-old male who presented to the emergency department from care home for an evaluation of foot ulcer. The patient has a history of diabetes. He had signs of cellulitis as well as diabetic foot ulcer on his left foot. Radiographic studies reveal signs of osteomyelitis. He was treated with IV antibiotics in the emergency department. He was reevaluated multiple times. I discussed his condition with the on-call [facility] hospitalist. The patient will likely require further inpatient management for this infection. Triage Nursing notes reviewed. Prior medical records reviewed Vital Signs: reviewed and remarkable for no significant abnormalities Differential diagnosis: Cellulitis, abscess, MRSA infection, DVT, necrotizing fasciitis, dermatitis, drug eruption, allergic reaction, as well as other pathologies. ER treatment provided: See below Diagnostics interpreted by me: ECG: EKG was obtained in the emergency department. My interpretation is normal sinus rhythm at 62 bpm. There is no ectopy. There is no acute ST segment abnormalities noted. Nonspecific ST flattening was noted. This was compared to a tracing from March 12, 2023. No changes were noted Cardiac Monitoring: An order was placed for continuous cardiac monitoring. The monitor shows a rate of 86 bpm with sinus rhythm Laboratory studies: As stated above and show below. Imaging studies: See below. Radiographic imaging was reviewed by myself Consultation(s): I discussed this case with Dr. Jenkins who is on-call for the [facility] hospitalist group. Past Med/Surg History Medical History (Updated 09/15/23 @ 12:10 by George Jenkins DO) CKD (chronic kidney disease) APRIL (acute kidney injury) Elevated troponin HHNC (hyperglycemic hyperosmolar nonketotic coma) Orthostatic hypotension (2015) Anemia Syncope (2016) Colitis CVA (cerebral infarction) (2016) Hyperlipidemia Diabetes HTN (hypertension) Surgical History S/P craniotomy Surgical history unknown Family History Other Family history non-contributory Social History Smoking Status: Former smoker Tobacco Type: Cigarettes Age Started Using Tobacco: 13; packs per day: 0.5; Second Hand Exposure: No; Do You Dip or Chew Tobacco: No; Hx Alcohol Use: No Hx Substance Use: Yes Prescribed Medications: Marijuana Last Used Substance Other:: 2007 Substance Use Type Other:: K2 Preferred Language: Amharic Communication Ability: Effective Iron Pourer Required: No Beliefs That Will Affect Care: None marital status: Current Living Situation: Other Current Living Situation Comment: [facility] current occupational status: unemployed Feels Safe at Home: Yes Assistive Devices: None Allergies Allergies Allergy/AdvReac Type Severity Reaction Status Date / Time No Known Allergies Allergy Verified 08/22/23 10:00 Home Meds Home Medications Medication Instructions Recorded Confirmed docusate sodium 100 mg tablet 100 mg PO BID 10/18/20 08/22/23 etanercept 50 mg/mL (1 mL) 50 mg subcut WK 10/18/20 08/22/23 subcutaneous syringe (Enbrel) folic acid 1 mg tablet 1 mg PO DAILY 10/18/20 08/22/23 glucagon HCl 1 mg solution for 1 mg subcut DIRECTED PRN 10/18/20 08/22/23 injection (Glucagon (HCl) Hypoglycemia Emergency Kit) hydroxychloroquine 200 mg tablet 200 mg PO DAILY 10/18/20 08/22/23 nortriptyline 25 mg capsule 25 mg PO BID 10/18/20 08/22/23 cyanocobalamin (vitamin B-12) 1,000 mcg PO DAILY 12/24/20 08/22/23 1,000 mcg tablet (Vitamin B-12) amlodipine 10 mg tablet 10 mg PO DAILY 10/05/22 08/22/23 ammonium lactate 12 % lotion 1 applic topical BID 10/05/22 08/22/23 atorvastatin 10 mg tablet 10 mg PO DAILY 10/05/22 08/22/23 insulin glargine 100 unit/mL See Rx Instructions .Route .COMPLEX 10/05/22 08/22/23 subcutaneous solution albuterol sulfate 90 mcg/actuation 2 puff inhalation QID PRN 03/12/23 08/22/23 aerosol inhaler Shortness Of Breath dapagliflozin propanediol 10 mg 10 mg PO DAILY 03/12/23 08/22/23 tablet (Farxiga) glucose 4 gram chewable tablet 4 g PO DIRECTED PRN 03/12/23 08/22/23 HYPOGLYCLEMIA insulin regular human 100 unit/mL 1 sliding scale dose subcut BID 03/12/23 08/22/23 injection solution (Novolin R Regular U-100 Insulin) Previous Rx's Medication Instructions Recorded lisinopril 40 mg tablet 40 mg PO DAILY #90 tabs 09/24/22 Results & Data (ED) Vital Signs Vital Signs - 24 hr 09/15/23 09:31 09/15/23 10:00 09/15/23 10:39 Temperature 36.2 C L Temperature Source Temporal Artery Scan Pulse Rate 67 61 Pulse Rate [Apical] Pulse Rate from SpO2 Sensor Respiratory Rate 16 Respiratory Effort / Characteristics Non-Labored Spontaneous Respiratory Depth Normal Respiratory Pattern Blood Pressure 139/86 Blood Pressure [Right Arm] Blood Pressure Mean 103 Blood Pressure Mean [Right Arm] Blood Pressure Position [Right Arm] Pulse Oximetry 99 98 Oxygen Delivery Method Room Air Room Air Sepsis Recent Fever Within 48 Hours No Sepsis New/Unexplained Change in Mental Status No Sepsis Action Taken by Nursing No Action Required 09/15/23 10:41 09/15/23 11:32 09/15/23 12:01 Temperature Temperature Source Pulse Rate Pulse Rate [Apical] 86 Pulse Rate from SpO2 Sensor 61 62 Respiratory Rate 18 Respiratory Effort / Characteristics Non-Labored Spontaneous Respiratory Depth Normal Respiratory Pattern Regular Blood Pressure 157/85 H 182/92 H Blood Pressure [Right Arm] 144/95 H Blood Pressure Mean 109 122 Blood Pressure Mean [Right Arm] 111 Blood Pressure Position [Right Arm] Sitting Pulse Oximetry 100 100 99 Oxygen Delivery Method Room Air Sepsis Recent Fever Within 48 Hours Sepsis New/Unexplained Change in Mental Status Sepsis Action Taken by Nursing 09/15/23 12:31 09/15/23 13:01 Temperature Temperature Source Pulse Rate Pulse Rate [Apical] Pulse Rate from SpO2 Sensor 63 61 Respiratory Rate Respiratory Effort / Characteristics Respiratory Depth Respiratory Pattern Blood Pressure 156/86 H 186/97 H Blood Pressure [Right Arm] Blood Pressure Mean 109 134 Blood Pressure Mean [Right Arm] Blood Pressure Position [Right Arm] Pulse Oximetry 99 100 Oxygen Delivery Method Sepsis Recent Fever Within 48 Hours Sepsis New/Unexplained Change in Mental Status Sepsis Action Taken by Intermediate Medications Current Medication List: was personally reviewed by me Laboratory Data Attestation: I reviewed the patient's lab results. 09/15/23 10:00 09/15/23 10:00 Lab Results 09/15/23 09/15/23 09/15/23 Range/Units 10:00 10:08 11:42 WBC 6.21 (4.8-10.8) K/ul RBC 3.89 L (4.70-6.10) M/uL Hgb 11.3 L (14.0-18.0) g/dl Hct 34.3 L (42.0-52.0) % MCV 88.2 (80.0-100.0) fL MCH 29.0 (25.0-34.0) pg MCHC 32.9 (32.0-36.0) g/dL RDW Std Deviation 41.7 (36.4-46.3) fL RDW Coeff of Vidal 13.1 (11.5-14.5) % Plt Count 293 (130-400) K/uL MPV 10.2 (9.4-12.4) fL Immature Gran % (Auto) 0.3 % Neut % (Auto) 49.8 % Lymph % (Auto) 32.0 % [place] % (Auto) 11.8 % Eos % (Auto) 5.3 % Baso % (Auto) 0.8 % Neut # (Auto) 3.09 (1.40-6.50) K/uL Lymph # (Auto) 1.99 (1.20-3.40) K/uL [place] # (Auto) 0.73 H (0.11-0.59) K/uL Eos # (Auto) 0.33 (0.00-0.50) K/uL Baso # (Auto) 0.05 (0.00-0.20) K/uL Immature Gran # (Auto) 0.02 (0.01-0.20) K/uL PT 11.0 (9.0-12.0) Seconds INR 1.0 (0.9-1.1) APTT 28 (21-31) Seconds PTT Ratio 1.0 VBG pH 7.37 (7.36-7.41) VBG pCO2 54 H (38-50) mmHg VBG pO2 21 mmHg VBG HCO3 31 mmol/L VBG O2 Saturation < 60.0 % VBG Base Excess 4.5 mEq/L Sodium 134 L (136-145) mmol/L Potassium 4.4 (3.5-5.1) mmol/L Chloride 101 (98-107) mmol/L Carbon Dioxide 29 (21-32) mmol/L Anion Gap 4 (3-11) BUN 37 H (6-23) mg/dl Creatinine 1.67 H (0.6-1.4) mg/dl Est Cr Clr Drug Dosing 47.7 ml/min Est GFR ( Amer) 47.3 ml/min Est GFR (Non-Af Amer) 40.8 ml/min BUN/Creatinine Ratio 22.2 H (10-20) Glucose 131 H (70-99(Fasting)) mg/dl POC Glucose (70-99) mg/dl Lactate 0.7 (0.4-2.0) mmol/L Calcium 8.8 (8.6-10.3) mg/dl Magnesium 1.8 (1.7-2.4) mg/dl Total Bilirubin 0.4 (0.2-1.0) mg/dl Direct Bilirubin 0.1 (0-0.2) mg/dl AST 16 (13-39) U/L ALT 9 (7-52) U/L Alkaline Phosphatase 69 (34-104) U/L Troponin I High Sens 6.4 (0-20) pg/ml Total Protein 8.4 H (6.0-8.3) gm/dl Albumin 3.5 (3.4-5.0) gm/dl Procalcitonin 0.05 (0-0.5) ng/ml Urine Color Yellow Urine Appearance Clear (Clear) Urine pH 6.5 (4.5-7.5) Ur Specific [place] 1.015 (1.000-1.030) Urine Protein 1+ H (Negative) Urine Glucose (UA) Negative (Negative) Urine Ketones Negative (Negative) Urine Blood Negative (Negative) Urine Nitrite Negative (Negative) Urine Bilirubin Negative (Negative) Urine Urobilinogen Negative (Negative) Ur Leukocyte Esterase Negative (Negative) Urine WBC (Auto) 0 (0-5) /hpf Urine RBC (Auto) 0-4 (0-4) /hpf U Hyaline Cast (Auto) 0 (0-5) /lpf U Epithel Cells (Auto) 0-5 (0-5) /lpf Urine Bacteria (Auto) Negative (Negative) 09/15/23 Range/Units 13:40 WBC (4.8-10.8) K/ul RBC (4.70-6.10) M/uL Hgb (14.0-18.0) g/dl Hct (42.0-52.0) % MCV (80.0-100.0) fL MCH (25.0-34.0) pg MCHC (32.0-36.0) g/dL RDW Std Deviation (36.4-46.3) fL RDW Coeff of Vidal (11.5-14.5) % Plt Count (130-400) K/uL MPV (9.4-12.4) fL Immature Gran % (Auto) % Neut % (Auto) % Lymph % (Auto) % [place] % (Auto) % Eos % (Auto) % Baso % (Auto) % Neut # (Auto) (1.40-6.50) K/uL Lymph # (Auto) (1.20-3.40) K/uL [place] # (Auto) (0.11-0.59) K/uL Eos # (Auto) (0.00-0.50) K/uL Baso # (Auto) (0.00-0.20) K/uL Immature Gran # (Auto) (0.01-0.20) K/uL PT (9.0-12.0) Seconds INR (0.9-1.1) APTT (21-31) Seconds PTT Ratio VBG pH (7.36-7.41) VBG pCO2 (38-50) mmHg VBG pO2 mmHg VBG HCO3 mmol/L VBG O2 Saturation % VBG Base Excess mEq/L Sodium (136-145) mmol/L Potassium (3.5-5.1) mmol/L Chloride (98-107) mmol/L Carbon Dioxide (21-32) mmol/L Anion Gap (3-11) BUN (6-23) mg/dl Creatinine (0.6-1.4) mg/dl Est Cr Clr Drug Dosing ml/min Est GFR ( Amer) ml/min Est GFR (Non-Af Amer) ml/min BUN/Creatinine Ratio (10-20) Glucose (70-99(Fasting)) mg/dl POC Glucose 55 L* (70-99) mg/dl Lactate (0.4-2.0) mmol/L Calcium (8.6-10.3) mg/dl Magnesium (1.7-2.4) mg/dl Total Bilirubin (0.2-1.0) mg/dl Direct Bilirubin (0-0.2) mg/dl AST (13-39) U/L ALT (7-52) U/L Alkaline Phosphatase (34-104) U/L Troponin I High Sens (0-20) pg/ml Total Protein (6.0-8.3) gm/dl Albumin (3.4-5.0) gm/dl Procalcitonin (0-0.5) ng/ml Urine Color Urine Appearance (Clear) Urine pH (4.5-7.5) Ur Specific [place] (1.000-1.030) Urine Protein (Negative) Urine Glucose (UA) (Negative) Urine Ketones (Negative) Urine Blood (Negative) Urine Nitrite (Negative) Urine Bilirubin (Negative) Urine Urobilinogen (Negative) Ur Leukocyte Esterase (Negative) Urine WBC (Auto) (0-5) /hpf Urine RBC (Auto) (0-4) /hpf U Hyaline Cast (Auto) (0-5) /lpf U Epithel Cells (Auto) (0-5) /lpf Urine Bacteria (Auto) (Negative) Administered Medications Vancomycin HCl 2,000 mg/ (Sodium Chloride) 540 mls @ 200 mls/hr IV NOW ONE Stop: 09/15/23 14:08 Last Admin: 09/15/23 12:15 Dose: 200 mls/hr Documented By: CC Discontinued Medications Piperacillin Sod/Tazobactam Sod (Zosyn) 4.5 gm in 100 mls @ 200 mls/hr IV NOW ONE Stop: 09/15/23 10:21 Last Infusion: 09/15/23 11:33 Dose: Infused Documented By: Admin: 09/15/23 11:00 Dose: 200 mls/hr Documented By: FOZIA Imaging Data Attestation: I personally reviewed and interpreted this imaging study as follows: My Impression: 1 view chest x-ray was obtained in the emergency department. My interpretation is no free air or definite infiltrate, final report below. Radiologist's Impression: Chest X-Ray 09/15/23 09:52 XR chest 1V portable CLINICAL HISTORY: Sepsis TECHNIQUE: Single frontal radiograph of the chest was obtained. Comparison: Comparison is made to chest radiograph 03/11/2023 FINDINGS: No lines and tubes are seen. The cardiomediastinal silhouette is normal. The lungs are clear. No evidence of pleural effusion or pneumothorax. IMPRESSION: No acute chest disease. ACT 112: Negative or not required by law. Electronically signed by: Dane Colmenares M.D. 09/15/2023 10:[address] 09/15/23 10:07 CT foot LT wo con CLINICAL HISTORY: swelling, infection TECHNIQUE: Multidetector row helical CT of the left foot was performed without intravenous contrast. Coronal and sagittal reformations were obtained. Automated dose lowering techniques and/or adjustment according to patient size were utilized for this examination. CT DOSE: 444.48 mGy.cm Comparison: Comparison is made to CT foot 10/06/2022 FINDINGS: There is focal erosion of the second digit proximal and distal phalanxes. Soft tissue swelling is seen most prominently in the forefoot. IMPRESSION: Findings are concerning for osteomyelitis of the second digit. Cellulitis is seen. ACT 112: Negative or not required by law. Electronically signed by: Dane Colmenares M.D. 09/15/2023 11:02 AM Venous Doppler Study 09/15/23 10:07 US venous doppler LE LT CLINICAL HISTORY: swelling TECHNIQUE: Left lower extremity real-time compression venous ultrasound with Color Doppler imaging. Utilizing real-time ultrasonic imaging multiple real time high-resolution ultrasonic images with compression and noncompression maneuvers of the deep venous system in addition to color doppler imaging were performed from the common femoral vein through the proximal calf veins. COMPARISON: None available at the time of this dictation. FINDINGS/IMPRESSION: Currently there is normal compressibility of the deep venous system from the common femoral vein through the proximal calf veins. Enlarged left groin lymph nodes are seen. ACT 112: Negative or not required by law. Electronically signed by: Dane Colmenares M.D. 09/15/2023 11:47 AM Discharge Plan Visit Data Chief Complaint: Infection ED Provider: Benito Crowell Discharge Problem: Osteomyelitis, Cellulitis of foot, left, Diabetic ulcer of foot with fat layer exposed Patient Disposition: Being Evaluated by Hospitalist Forms Stand Alone Forms: My [facility] Prescriptions Prescriptions: No Action nortriptyline 25 mg Capsule 25 mg PO BID folic acid 1 mg Tablet 1 mg PO DAILY hydroxychloroquine 200 mg Tablet 200 mg PO DAILY docusate sodium 100 mg Tablet 100 mg PO BID Enbrel 50 mg/mL (1 mL) Syringe 50 mg SUBCUT WK Rx Instructions: WEDNESDAYS glucagon HCl [Glucagon (HCl) Emergency Kit] 1 mg Recon Soln 1 mg subcut DIRECTED PRN (Reason: Hypoglycemia) atorvastatin 10 mg Tablet 10 mg PO DAILY amlodipine 10 mg Tablet 10 mg PO DAILY insulin glargine 100 unit/mL Solution See Rx Instructions .ROUTE .COMPLEX Rx Instructions: TAKES 26 UNITS QAM AND THEN 12 UNITS QPM ammonium lactate 12 % Lotion 1 applic TOPICAL BID Novolin R Regular U100 Insulin 100 unit/mL Solution 1 sliding scale dose SUBCUT BID Rx Instructions: BSG 200-250=2 UNITS, 251-300=4 UNITS, 301-350=6 UNITS, 351-400=8 UNITS, 401- 450=10 UNITS, 451-500=12 UNITS, > 500=CALL TO MD. glucose 4 gram Tablet,Chewable 4 g PO DIRECTED PRN (Reason: HYPOGLYCLEMIA) albuterol sulfate 90 mcg/actuation Hfa Aerosol Inhaler 2 puff INHALATION QID PRN (Reason: Shortness Of Breath) Farxiga 10 mg Tablet 10 mg PO DAILY cyanocobalamin (vitamin B-12) [Vitamin B-12] 1,000 mcg Tablet 1,000 mcg PO DAILY lisinopril 40 mg tablet 40 mg PO DAILY Qty: 90 0RF Referrals Referrals: Davion Son PA-C [Physician [employer]] - Discharge Problem: Osteomyelitis Qualifiers: Osteomyelitis type: unspecified type Osteomyelitis location: foot Laterality: l eft Qualified Code(s): M86.9 - Osteomyelitis, unspecified Diabetic ulcer of foot with fat layer exposed Qualifiers: Diabetic foot ulcer location: toe Diabetes mellitus type: other specified (including ALEXYS) Laterality: left Qualified Code(s): E13.621 - Other specified diabetes mellitus with foot ulcer
[2023-09-15 10:26] LABS: Base Excess VBG 4.5 mEq/L; HCO3 VBG 31 mmol/L; Oxygen Saturation VBG < 60.0 %; PCO2 VBG 54 mmHg (38-50); PO2 VBG 21 mmHg; pH VBG 7.37 (7.36-7.41)
[2023-09-15 10:33] LABS: Basophils # (auto) 0.05 K/uL (0.00-0.20); Basophils % (auto) 0.8 %; Eosinophils # (auto) 0.33 K/uL (0.00-0.50); Eosinophils % (auto) 5.3 %; Hematocrit (blood only) 34.3 % (42.0-52.0); Hemoglobin 11.3 g/dl (14.0-18.0); Immature Granulocytes # (auto) 0.02 K/uL (0.01-0.20); Immature Granulocytes % (auto) 0.3 %; Lymphocytes # (auto) 1.99 K/uL (1.20-3.40); Mean Corpuscular Hgb Conc 32.9 g/dL (32.0-36.0); Mean Corpuscular Volume 88.2 fL (80.0-100.0); Mean Platelet Volume 10.2 fL (9.4-12.4); Monocytes # (auto) 0.73 K/uL (0.11-0.59); Monocytes % (auto) 11.8 %; Neutrophils # (auto) 3.09 K/uL (1.40-6.50); Neutrophils % (auto) 49.8 %; Platelet Count 293 K/uL (130-400); RDW Coefficient of Variation 13.1 % (11.5-14.5); RDW Standard Deviation 41.7 fL (36.4-46.3); Red Blood Count 3.89 M/uL (4.70-6.10); White Blood Count 6.21 K/ul (4.8-10.8)
--- NOTE | 2023-09-15 10:33 | XRay Report ---
XR chest 1V portable CLINICAL HISTORY: Sepsis TECHNIQUE: Single frontal radiograph of the chest was obtained. Comparison: Comparison is made to chest radiograph 03/11/2023 FINDINGS: No lines and tubes are seen. The cardiomediastinal silhouette is normal. The lungs are clear. No evid ence of pleural effusion or pneumothorax. IMPRESSION: No acute chest disease. ACT 112: Negative or not required by law. Electronically signed by: Dane Colmenares M.D. 09/15/2023 10:32 AM
[2023-09-15 10:48] LABS: Albumin Level 3.5 gm/dl (3.4-5.0); BUN Creatinine Ratio 22.2 (10-20); Bilirubin Direct 0.1 mg/dl (0-0.2); Bilirubin,Total 0.4 mg/dl (0.2-1.0); Calcium 8.8 mg/dl (8.6-10.3); Creatinine Clr Calc Pharmacy 47.7 ml/min; Est GFR (African American) 47.3 ml/min; Est GFR (Non-African American) 40.8 ml/min; Magnesium 1.8 mg/dl (1.7-2.4); Potassium 4.4 mmol/L (3.5-5.1); Total Protein 8.4 gm/dl (6.0-8.3)
[2023-09-15 10:54] LABS: Troponin I High Sensitivity 6.4 pg/ml (0-20)
[2023-09-15 10:58] LABS: Partial Thromboplastin Time 28 Seconds (21-31)
--- NOTE | 2023-09-15 11:04 | CT Scan Report ---
CT foot LT wo con CLINICAL HISTORY: swelling, infection TECHNIQUE: Multidetector row helical CT of the left foot was performed without intravenous contrast. Coronal and sagittal reformations were obtained. Automated dose lowering techniques and/or adjustment according to patient size were utilized for this examination. CT DOSE: 444.48 mGy.cm Comparison: Comparison is made to CT foot 10/06/2022 FINDINGS: There is focal erosion of the second digit proximal and distal phalanxes. Soft tissue swelling is see n most prominently in the forefoot. IMPRESSION: Findings are concerning for osteomyelitis of the second digit. Cellulitis is seen. ACT 112: Negative or not required by law. Electronically signed by: Dane Colmenares M.D. 09/15/2023 11:02 AM
[2023-09-15] MEDS ORDERED: VANCOMYCIN CONSULT ACTIVE PRN (11:28)
[2023-09-15] MEDS ORDERED: VANCOMYCIN HCL 2,000 MG in SODIUM CHLORIDE 0.9% 500 ML IV ONE (11:28)
--- NOTE | 2023-09-15 11:48 | Ultrasound Report ---
US venous doppler LE LT CLINICAL HISTORY: swelling TECHNIQUE: Left lower extremity real-time compression venous ultrasound with Color Doppler imaging. U tilizing real-time ultrasonic imaging multiple real time high-resolution ultrasonic images with compr ession and noncompression maneuvers of the deep venous system in addition to color doppler imaging we re performed from the common femoral vein through the proximal calf veins. COMPARISON: None available at the time of this dictation. FINDINGS/IMPRESSION: Currently there is normal compressibility of the deep venous system from the common femoral vein thro ugh the proximal calf veins. Enlarged left groin lymph nodes are seen. ACT 112: Negative or not required by law. Electronically signed by: Dane Colmenares M.D. 09/15/2023 11:47 AM
--- NOTE | 2023-09-15 11:48 | History & Physical Report ---
Date of Service September 15, 2023 Assessment & Plan (1) Diabetic ulcer of foot with fat layer exposed: Plan: Concerning for osteomyelitis -Zosyn and vancomycin -Pharmacy to assist with vancomycin dosing secondary to underlying kidney disease - orthopedics consult: Michelle (2) Osteomyelitis: (3) Type 2 diabetes mellitus: Plan: Hemoglobin A1c 10.9 on July 2023 -Sliding scale with basal insulin as needed (4) Gangrene of toe: (5) Diabetic foot ulcer: Plan: Wound care consult (6) HTN (hypertension): Plan: Amlodipine 10 mg Lisinopril 40 mg (7) Hyperlipidemia: Plan: Atorvastatin 10 mg (8) CVA (cerebral infarction): History of Present Illness Chief Complaint: Left foot swelling The patient is a 68-year-old male who presented to the emergency department for an evaluation of foot swelling. He had foot swelling for a few weeks which slowly has been worsening. He was started on antibiotic at the [place] [facility]. They were unable to get him into the wound care center so they sent him to the emergency department today. Allergies Allergy/AdvReac Type Severity Reaction Status Date / Time No Known Allergies Allergy Verified 08/22/23 10:00 Home Medications Medication Instructions Recorded Confirmed Type docusate sodium 100 mg tablet 100 mg PO BID 10/18/20 08/22/23 History etanercept 50 mg/mL (1 mL) 50 mg subcut WK 10/18/20 08/22/23 History subcutaneous syringe (Enbrel) folic acid 1 mg tablet 1 mg PO DAILY 10/18/20 08/22/23 History glucagon HCl 1 mg solution for 1 mg subcut DIRECTED PRN 10/18/20 08/22/23 History injection (Glucagon (HCl) Hypoglycemia Emergency Kit) hydroxychloroquine 200 mg tablet 200 mg PO DAILY 10/18/20 08/22/23 History nortriptyline 25 mg capsule 25 mg PO BID 10/18/20 08/22/23 History cyanocobalamin (vitamin B-12) 1,000 mcg PO DAILY 12/24/20 08/22/23 History 1,000 mcg tablet (Vitamin B-12) lisinopril 40 mg tablet 40 mg PO DAILY #90 tabs 09/24/22 08/22/23 Rx amlodipine 10 mg tablet 10 mg PO DAILY 10/05/22 08/22/23 History ammonium lactate 12 % lotion 1 applic topical BID 10/05/22 08/22/23 History atorvastatin 10 mg tablet 10 mg PO DAILY 10/05/22 08/22/23 History insulin glargine 100 unit/mL See Rx Instructions .Route .COMPLEX 10/05/22 08/22/23 History subcutaneous solution albuterol sulfate 90 mcg/actuation 2 puff inhalation QID PRN 03/12/23 08/22/23 History aerosol inhaler Shortness Of Breath dapagliflozin propanediol 10 mg 10 mg PO DAILY 03/12/23 08/22/23 History tablet (Farxiga) glucose 4 gram chewable tablet 4 g PO DIRECTED PRN 03/12/23 08/22/23 History HYPOGLYCLEMIA insulin regular human 100 unit/mL 1 sliding scale dose subcut BID 03/12/23 08/22/23 History injection solution (Novolin R Regular U-100 Insulin) Past Med/Surg History Medical History (Updated 09/15/23 @ 12:10 by George Jenkins DO) CKD (chronic kidney disease) APRIL (acute kidney injury) Elevated troponin HHNC (hyperglycemic hyperosmolar nonketotic coma) Orthostatic hypotension (2015) Anemia Syncope (2016) Colitis CVA (cerebral infarction) (2016) Hyperlipidemia Diabetes HTN (hypertension) Surgical History S/P craniotomy Surgical history unknown Family History Other Family history non-contributory Social History Smoking Status: Former smoker Tobacco Type: Cigarettes Age Started Using Tobacco: 13; packs per day: 0.5; Second Hand Exposure: No; Do You Dip or Chew Tobacco: No; Hx Alcohol Use: No Hx Substance Use: Yes Prescribed Medications: Marijuana Last Used Substance Other:: 2007 Substance Use Type Other:: K2 Preferred Language: Vietnamese Communication Ability: Effective Django Developer Required: No Beliefs That Will Affect Care: None marital status: Current Living Situation: Other Current Living Situation Comment: [facility] current occupational status: unemployed Feels Safe at Home: Yes Assistive Devices: None Review of Systems Review of Systems: A 10 point review of systems has been obtained and is otherwise negative. Denies chest pain, shortness of breath, change in bowel habits Physical Exam Physical Exam: General: Alert. nontoxic. Skin: Warm, dry, Head: Atraumatic Ears, nose, mouth and throat: airway patent Cardiovascular: Normal peripheral perfusion Respiratory: no respiratory distress Gastrointestinal: Non distended Musculoskeletal: Swelling of left lower extremity greater than right to approximately mid calf. Ulcer to distal tip of left great toe, ulcer with fat exposed on dorsal surface of second great toe. No purulence is able to be expressed. Results & Data Results & Data Vital Signs (Past 12 Hours) Vital Signs Temp Pulse Pulse Resp BP BP Pulse Ox 09/15/23 10:41 86 18 144/95 H 100 09/15/23 10:39 61 09/15/23 10:00 98 09/15/23 09:31 36.2 C L 67 16 139/86 99 O2 Del Method 09/15/23 10:41 Room Air 09/15/23 10:39 09/15/23 10:00 Room Air 09/15/23 09:31 Room Air Critical Care Results & Data Vital Signs (Past 12 Hours) Vital Signs Temp Pulse Pulse Resp BP BP Pulse Ox 09/15/23 10:41 86 18 144/95 H 100 09/15/23 10:39 61 09/15/23 10:00 98 09/15/23 09:31 36.2 C L 67 16 139/86 99 O2 Del Method 09/15/23 10:41 Room Air 09/15/23 10:39 09/15/23 10:00 Room Air 09/15/23 09:31 Room Air Lab & Micro Results (Past 24 Hours) RBC 3.89 M/uL (4.70-6.10) L 09/15/23 WBC 6.21 K/ul (4.8-10.8) 09/15/23 Hgb 11.3 g/dl (14.0-18.0) L 09/15/23 Hct 34.3 % (42.0-52.0) L 09/15/23 MCV 88.2 fL (80.0-100.0) 09/15/23 MCH 29.0 pg (25.0-34.0) 09/15/23 MCHC 32.9 g/dL (32.0-36.0) 09/15/23 RDW Standard Deviation 41.7 fL (36.4-46.3) 09/15/23 RDW Coefficient of Variation 13.1 % (11.5-14.5) 09/15/23 Plt Count 293 K/uL (130-400) 09/15/23 MPV 10.2 fL (9.4-12.4) 09/15/23 Neutrophils (%) (Auto) 49.8 % 09/15/23 Lymphocytes (%) (Auto) 32.0 % 09/15/23 Monocytes # (Auto) 0.73 K/uL (0.11-0.59) H 09/15/23 Eosinophils # (Auto) 0.33 K/uL (0.00-0.50) 09/15/23 Immature Granulocyte % (Auto) 0.3 % 09/15/23 Neutrophils # (Auto) 3.09 K/uL (1.40-6.50) 09/15/23 Lymphocytes # (Auto) 1.99 K/uL (1.20-3.40) 09/15/23 Monocytes # (Auto) 0.73 K/uL (0.11-0.59) H 09/15/23 Eosinophils # (Auto) 0.33 K/uL (0.00-0.50) 09/15/23 Basophils # (Auto) 0.05 K/uL (0.00-0.20) 09/15/23 Immature Granulocyte # (Auto) 0.02 K/uL (0.01-0.20) 3 Na 134 mmol/L (136-145) L 09/15/23 K 4.4 mmol/L (3.5-5.1) 09/15/23 Cl 101 mmol/L (98-107) 09/15/23 CO2 29 mmol/L (21-32) 09/15/23 Anion Gap 4 (3-11) 09/15/23 BUN 37 mg/dl (6-23) H 09/15/23 Creatinine 1.67 mg/dl (0.6-1.4) H 09/15/23 Estimated GFR ( Amer) 47.3 ml/min 09/15/23 Estimated GFR (Non-Af Amer) 40.8 ml/min 09/15/23 BUN/Creatinine Ratio 22.2 (10-20) H 09/15/23 Glu 131 mg/dl (70-99(Fasting)) H 09/15/23 Ca 8.8 mg/dl (8.6-10.3) 09/15/23 Total Bilirubin 0.4 mg/dl (0.2-1.0) 09/15/23 Direct Bilirubin 0.1 mg/dl (0-0.2) 09/15/23 AST 16 U/L (13-39) 09/15/23 ALT 9 U/L (7-52) 09/15/23 Alkaline Phosphatase 69 U/L (34-104) 09/15/23 TP 8.4 gm/dl (6.0-8.3) H 09/15/23 Albumin 3.5 gm/dl (3.4-5.0) 09/15/23 Mg 1.8 mg/dl (1.7-2.4) 09/15/23 10:00 Calcium Level 8.8 mg/dl (8.6-10.3) 09/15/23 10:00 Prothromb Time International Ratio 1.0 (0.9-1.1) 09/15/23 10:0 0 Venous Blood pH 7.37 (7.36-7.41) 09/15/23 10:08 Venous Blood Partial Pressure CO2 54 mmHg (38-50) H 09/15/23 10 :08 Venous Blood Partial Pressure O2 21 mmHg 09/15/23 10:08 Venous Blood HCO3 31 mmol/L 09/15/23 10:08 Venous Blood Base Excess 4.5 mEq/L 09/15/23 10:08 Venous Blood Oxygen Saturation < 60.0 % 09/15/23 10:08 Diagnostic Findings (Past 24 Hours) Chest X-Ray 09/15/23 09:52 XR chest 1V portable CLINICAL HISTORY: Sepsis TECHNIQUE: Single frontal radiograph of the chest was obtained. Comparison: Comparison is made to chest radiograph 03/11/2023 FINDINGS: No lines and tubes are seen. The cardiomediastinal silhouette is normal. The lungs are clear. No evidence of pleural effusion or pneumothorax. IMPRESSION: No acute chest disease. ACT 112: Negative or not required by law. Electronically signed by: Dane Colmenares M.D. 09/15/2023 10:[address] 09/15/23 10:07 CT foot LT wo con CLINICAL HISTORY: swelling, infection TECHNIQUE: Multidetector row helical CT of the left foot was performed without intravenous contrast. Coronal and sagittal reformations were obtained. Automated dose lowering techniques and/or adjustment according to patient size were utilized for this examination. CT DOSE: 444.48 mGy.cm Comparison: Comparison is made to CT foot 10/06/2022 FINDINGS: There is focal erosion of the second digit proximal and distal phalanxes. Soft tissue swelling is seen most prominently in the forefoot. IMPRESSION: Findings are concerning for osteomyelitis of the second digit. Cellulitis is seen. ACT 112: Negative or not required by law. Electronically signed by: Dane Colmenares M.D. 09/15/2023 11:02 AM I & O Totals 24 Hours 09/14/23 09/15/23 09/16/23 06:59 06:59 06:59 Intake Total 100 / 100 Balance 100 / 100 Cumulative 09/15/23 09:24 thru 09/15/23 11:33 Intake Total 100 Balance 100 RT Ventilator Mngmt (Last Documented) Ventilator Ordered Settings Respiratory Rate 18 09/15/23 10:41 Ventilator - PT Measurements Respiratory Rate 18 PG Care Time/CCT Total # of Minutes Spent Total Time Spent with Patient: Total time spent is greater than 50% in coordination of care (as documented) at patient's floor/unit and/or counseling patient: Coding Level of Care Code 06562 INT INP/OBS CARE 2MIN Diagnoses Diabetic ulcer of foot with fat layer exposed E13.621; L97.522 Diabetes mellitus type: other specified (including ALEXYS) Diabetic foot ulcer location: toe Laterality: left Osteomyelitis M86.9 Laterality: left Osteomyelitis location: foot Osteomyelitis type: unspecified type Type 2 diabetes mellitus with foot ulcer, with long-term current use of insulin E11.621; L97.509; Z79.4 Diabetes mellitus salvage determiner insulin use: with senior living use Diabetes mellitus complication status: with skin complications Diabetes mellitus complication detail: with foot ulcer Gangrene of toe I96 Diabetic foot ulcer E11.621; L97.509 HTN (hypertension) I10 Hypertension type: unspecified Hyperlipidemia, unspecified hyperlipidemia type E78.5 Hyperlipidemia type: unspecified CVA (cerebral infarction) I63.9 (1) Diabetic ulcer of foot with fat layer exposed Diabetes mellitus type: other specified (including ALEXYS) Diabetic foot ulcer location: toe Laterality: left Qualified Code(s): E13.621 - Other specified diabetes mellitus with foot ulcer; L97.522 - Non-pressure chronic ulcer of other part of left foot with fat layer exposed (2) Osteomyelitis Laterality: left Osteomyelitis location: foot Osteomyelitis type: unspecified type Qualified Code(s): M86.9 - Osteomyelitis, unspecified (3) Type 2 diabetes mellitus Diabetes mellitus salvage determiner insulin use: with senior living use Diabetes mellitus complication status: with skin complications Diabetes mellitus complication detail: with foot ulcer Qualified Code(s): E11.621 - Type 2 diabetes mellitus with foot ulcer; L97.509 - Non-pressure chronic ulcer of other part of unspecified foot with unspecified severity; Z79.4 - penitentiary (current) use of insulin (6) HTN (hypertension) Hypertension type: unspecified Qualified Code(s): I10 - Essential (primary) hypertension (7) Hyperlipidemia Hyperlipidemia type: unspecified Qualified Code(s): E78.5 - Hyperlipidemia, unspecified
[2023-09-15 13:40] LABS: Appearance Urine Clear (Clear); Bacteria Urine Automated Negative (Negative); Bilirubin Urine Negative (Negative); Blood Urine Negative (Negative); Cast Urine Automated 0 /lpf (0-5); Color Urine Yellow; Epithelial Cell Urine Auto 0-5 /lpf (0-5); Glucose Urine UA Negative (Negative); Ketones Urine Negative (Negative); Leukocyte Esterase Urine Negative (Negative); Nitrite Urine Negative (Negative); Protein Urine 1+ (Negative); RBC Urine Automated 0-4 /hpf (0-4); Specific Gravity Urine 1.015 (1.000-1.030); Urobilinogen Urine Negative (Negative); WBC Urine Automated 0 /hpf (0-5); pH Urine 6.5 (4.5-7.5)
[2023-09-15] MEDS ORDERED: DEXTROSE 50% 50 ML SYRINGE IV STA (13:45)
[2023-09-15 14:05] LABS: Influenza A virus by PCR Negative (Neg); Influenza B virus by PCR Negative (Neg); RSV by PCR Negative (Neg); SARS CoV2 RNA(COVID-19) Ceph NEGATIVE (Negative)
[2023-09-15] MEDS ORDERED: amLODIPine BESYLATE 5 MG TAB PO ONE (14:44)
[2023-09-15] MEDS ORDERED: lisinopril 40 MG TAB PO STA (14:44)
[2023-09-15] MEDS ORDERED: DEXTROSE 50% 50 ML SYRINGE IV PRN (15:17)
[2023-09-15] MEDS ORDERED: GLUCOSE 10 TAB/TUBE PO PRN ×3 (15:17→15:45)
[2023-09-15] MEDS ORDERED: CARBOHYDRATES FOR HYPOGLYCEMIA PO PRN (15:17)
[2023-09-15] MEDS ORDERED: GLUCAGON FOR INJ 1 MG VIAL SQ PRN (15:17)
[2023-09-15] MEDS ORDERED: ALBUTEROL HFA 8 GM INHALER INH PRN (15:17)
[2023-09-15] MEDS ORDERED: GLUCOSE 40% GEL 15 GM TUBE PO PRN (15:17)
--- NOTE | 2023-09-15 15:22 | Pharmacy Report ---
Pharmacy PK ABX Note - Date of Service September 15, 2023 - Assessment and Plan Assessment 68 year old M receiving VANCOMYCIN/ZOSYN for treatment of diabetic foot ulcer with possible osteomyelitis. Blood and left foot culture pending. Plan Vancomycin * Loading dose: 2000 mg IV x 1 * Maintenance dose: 1000 mg IV every 18 hours * Regimen is predicted to achieve target AUC/TESSY of 400-600 mg/L.hr * Random level ordered for 1224 with AM labs Pharmacy will continue to follow and will adjust dose/frequency as necessary. Thank you. Pharmacy has transitioned to AUC monitoring for vancomycin. AUC/TESSY is the preferred PK/PD target and is associated with decreased risk of nephrotoxicity compared to traditional trough targets.
[2023-09-15] MEDS: PIPERACILLIN/TAZOBACTAM 4.5 GM in DEXTROSE 5% MINI-B 100 ML IV SCH ×2 (15:54→23:42)
[2023-09-15] MEDS: INSULIN ASPART PER UNIT CHARGE SC SCH ×2 (17:14→21:11)
--- NOTE | 2023-09-15 18:16 | Orthopedic Consultation ---
Date of Consultation September 15, 2023 Assessment & Plan (1) Diabetic ulcer of left foot associated with diabetes mellitus due to underlying condition, with necrosis of bone: Continue IV antibiotics and supportive care. Recommend MRI with contrast if kidney function is amenable to this study. Will likely require amputation of the second toe and debridement of the third toe. Minimize direct pressure on the dorsum of the left foot second and third toes. Will follow with you. Thank you for the opportunity to consult in the care of this patient. Jn Martinez [facility] orthopedic [place] [phone] (2) Diabetic ulcer of foot with fat layer exposed: (3) Cellulitis of foot, left: (4) Gangrene of toe: (5) Cellulitis of foot, left: (6) Type 2 diabetes mellitus with polyneuropathy: History of Present Illness Reason for Consultation: Osteomyelitis left foot second toe, left foot second and third toe ulcerations to the layer of muscle. Requesting Physician: Dr. Jenkins and Dr. 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 He ruptured the blisters with a needle and the foot then further swelled with increased redness, pain and discomfort. Patient was instructed to go to the wound care center however was able to get into the wound care center due to limited holiday hours and he was then sent to the emergency department. Patient was admitted to the hospitalist service for cellulitis, osteomyelitis and gangrene. Allergies Allergy/AdvReac Type Severity Reaction Status Date / Time No Known Allergies Allergy Verified 08/22/23 10:00 Home Medications Medication Instructions Recorded Confirmed Type docusate sodium 100 mg tablet 100 mg PO BID 10/18/20 08/22/23 History etanercept 50 mg/mL (1 mL) 50 mg subcut WK 10/18/20 08/22/23 History subcutaneous syringe (Enbrel) folic acid 1 mg tablet 1 mg PO DAILY 10/18/20 08/22/23 History glucagon HCl 1 mg solution for 1 mg subcut DIRECTED PRN 10/18/20 08/22/23 History injection (Glucagon (HCl) Hypoglycemia Emergency Kit) hydroxychloroquine 200 mg tablet 200 mg PO DAILY 10/18/20 08/22/23 History nortriptyline 25 mg capsule 25 mg PO BID 10/18/20 08/22/23 History cyanocobalamin (vitamin B-12) 1,000 mcg PO DAILY 12/24/20 08/22/23 History 1,000 mcg tablet (Vitamin B-12) lisinopril 40 mg tablet 40 mg PO DAILY #90 tabs 09/24/22 08/22/23 Rx amlodipine 10 mg tablet 10 mg PO DAILY 10/05/22 08/22/23 History ammonium lactate 12 % lotion 1 applic topical BID 10/05/22 08/22/23 History atorvastatin 10 mg tablet 10 mg PO DAILY 10/05/22 08/22/23 History insulin glargine 100 unit/mL See Rx Instructions .Route .COMPLEX 10/05/22 08/22/23 History subcutaneous solution albuterol sulfate 90 mcg/actuation 2 puff inhalation QID PRN 03/12/23 08/22/23 History aerosol inhaler Shortness Of Breath dapagliflozin propanediol 10 mg 10 mg PO DAILY 03/12/23 08/22/23 History tablet (Farxiga) glucose 4 gram chewable tablet 4 g PO DIRECTED PRN 03/12/23 08/22/23 History HYPOGLYCLEMIA insulin regular human 100 unit/mL 1 sliding scale dose subcut BID 03/12/23 08/22/23 History injection solution (Novolin R Regular U-100 Insulin) Patient History Medical History (Updated 09/15/23 @ 18:19 by Jn Martinez DO) CKD (chronic kidney disease) APRIL (acute kidney injury) Elevated troponin HHNC (hyperglycemic hyperosmolar nonketotic coma) Orthostatic hypotension (2015) Anemia Syncope (2016) Colitis CVA (cerebral infarction) (2016) Hyperlipidemia Diabetes HTN (hypertension) Surgical History S/P craniotomy Surgical history unknown Family History Other Family history non-contributory Social History Smoking Status: Former smoker Tobacco Type: Cigarettes Age Started Using Tobacco: 13; packs per day: 0.5; Second Hand Exposure: No; Do You Dip or Chew Tobacco: No; Hx Alcohol Use: No Hx Substance Use: No Preferred Language: German Communication Ability: Effective Motion Picture Actor Required: No Beliefs That Will Affect Care: None marital status: Current Living Situation: Other Current Living Situation Comment: [facility] current occupational status: unemployed Other Information That Helps Us Care for You: No Feels Safe at Home: Yes Safety Concerns: Feels Safe At This Time Assistive Devices: None Physical Exam Constitutional: WD/WN, vitals as above Eyes: PERRL, conjunctivae normal, anicteric sclerae ENMT: external ear and nose normal, oropharynx normal Neck: trachea midline, no thyromegaly Respiratory: No labored breathing. No conversational dyspnea. Cardiovascular: Regular rate and rhythm with well-perfused extremities x 4. Gastrointestinal (Abdomen): Abdomen is soft and nontender. Nondistended. Musculoskeletal: Focused examination of the left foot demonstrates dry skin with no evidence of rashes or nodules. Positive multiple claw toes of the left foot and the right foot. He has notable fusiform swelling of the second toe with obvious dorsal necrosis. He has ulcerations on the dorsum of the second and third toes measuring approximately 1 cm in diameter. There is local skin slough, maceration and ulceration to the level of muscle of the second toe. There is a thin layer of tenosynovium overlying the extensor tendon of the left second toe. Mild foul odor is noted. Localized erythema of the dorsum of the foot with cellulitis extending to the level of the distal ankle. Minimal tenderness, bilateral feet due to polyneuropathy. Pedal pulses palpable. Feet are warm. Skin: Skin is dry and intact. Neurologic: PERRL, EOMI, accommodation nl, no face palsy, no dysarthria Psychiatric: A+Ox3, euthymic affect Lymphatic: no cervical or axillary lymphadenopathy Results & Data Vital Signs (Past 12 Hours) Vital Signs Temp Pulse Pulse Pulse Resp BP BP 09/15/23 15:20 36.4 C L 66 16 158/88 H 09/15/23 14:35 180/111 H 09/15/23 14:30 208/113 H 09/15/23 14:00 185/98 H 09/15/23 13:31 162/95 H 09/15/23 13:01 186/97 H 09/15/23 12:31 156/86 H 09/15/23 12:01 182/92 H 09/15/23 11:32 157/85 H 09/15/23 10:41 86 18 144/95 H 09/15/23 10:39 61 09/15/23 10:00 09/15/23 09:31 36.2 C L 67 16 139/86 Pulse Ox O2 Del Method 09/15/23 15:20 98 Room Air 09/15/23 14:35 99 09/15/23 14:30 98 09/15/23 14:00 98 09/15/23 13:31 97 09/15/23 13:01 100 09/15/23 12:31 99 09/15/23 12:01 99 09/15/23 11:32 100 09/15/23 10:41 100 Room Air 09/15/23 10:39 09/15/23 10:00 98 Room Air 09/15/23 09:31 99 Room Air Laboratory Results Reviewed Diagnostic Findings Radiographs and CT scans reviewed noting osteomyelitis of the second toe with fusiform swelling. (1) Diabetic ulcer of left foot associated with diabetes mellitus due to underlying condition, with necrosis of bone Diabetic foot ulcer location: toe Qualified Code(s): E08.621 - Diabetes mellitus due to underlying condition with foot ulcer; L97.524 - Non-pressure chronic ulcer of other part of left foot with necrosis of bone (2) Diabetic ulcer of foot with fat layer exposed Diabetes mellitus type: other specified (including ALEXYS) Diabetic foot ulcer location: toe Laterality: left Qualified Code(s): E13.621 - Other specified diabetes mellitus with foot ulcer; L97.522 - Non-pressure chronic ulcer of other part of left foot with fat layer exposed
[2023-09-15] MEDS: NORTRIPTYLINE HCL 25 MG CAP PO SCH (20:07)
[2023-09-15] MEDS: DOCUSATE SODIUM 100 MG CAP PO SCH ×2 (20:07→20:09)
[2023-09-15] MEDS: AMMONIUM LACTATE 12% LOTION 225 GM BTL EXT SCH (20:07)
[2023-09-15] MEDS ORDERED: AMMONIUM LACTATE 12% LOTION 225 GM BTL EXT SCH (21:00)
[2023-09-15] MEDS ORDERED: GADOBUTROL 65ML VIAL IV ONE (22:03)
[2023-09-16] MEDS ORDERED: VANCOMYCIN HCL 1,000 MG in SODIUM CHLORIDE 0.9% 250 ML IV SCH
--- NOTE | 2023-09-16 00:45 | Magnetic Resonance Report ---
Exam(s): MRI LEFT FOOT W/WO Contrast EXAM: MR Left Lower Extremity Without and With Intravenous Contrast, Foot CLINICAL HISTORY: Reason for exam: Assess for extent of osteomyelitis left foot. TECHNIQUE: Multiplanar magnetic resonance images of the left foot without and with intravenous contrast. CONTRAST: 9.2 CC GADAVIST COMPARISON: CT left foot 09/15/2023. FINDINGS: Soft tissue swelling and irregularity overlying the distal phalanx of the second digit consistent with a open wound and cellulitis. Edema and enhancement throughout the underlying middle and distal phalanx of the second digit with cortical loss consistent with osteomyelitis. Mild edema and enhancement noted in the mid to distal proximal phalanx of the second digit. Mild edema and enhancement also noted in the distal phalanx of the first digit. Focal edema in the distal aspect of the first digit proximal phalanx. Moderate generalized subcutaneous soft tissue swelling surrounding the foot consistent with a generalized cellulitis. No focal phlegmon or abscess identified. IMPRESSION: Generalized soft tissue swelling/edema with irregularity overlying the second digit compatible with cellulitis and ulceration overlying the second digit. Edema and enhancement in the middle and distal phalanx of the first digit with cortical loss consistent with osteomyelitis. Mild edema and enhancement is noted in the mid to distal aspect of the proximal phalanx of the second digit as well as in the distal phalanx of the first digit and osteomyelitis cannot be excluded. Electronically signed by: Harsh Carlson M.D. 09/16/23 00:44 AM
--- NOTE | 2023-09-16 06:45 | Electrocardiogram Report ---
Test Reason : Blood Pressure : / mmHG Vent. Rate : 062 BPM Atrial Rate : 062 BPM P-R Int : 192 ms QRS Dur : 102 ms QT Int : 424 ms P-R-T Axes : 038 022 099 degrees QTc Int : 430 ms Normal sinus rhythm Nonspecific T wave abnormality Abnormal ECG When compared with ECG of 12-MAR-2023 19:03, No significant change was found Confirmed by Leonardo Cody ([id number]) on 09/16/2023 6:45:24 AM Referred By: [facility] Confirmed By:Leonardo Cody
[2023-09-16 06:53] LABS: Basophils # (auto) 0.04 K/uL (0.00-0.20); Basophils % (auto) 0.8 %; Eosinophils # (auto) 0.34 K/uL (0.00-0.50); Eosinophils % (auto) 6.6 %; Hematocrit (blood only) 37.2 % (42.0-52.0); Hemoglobin 12.1 g/dl (14.0-18.0); Immature Granulocytes # (auto) 0.01 K/uL (0.01-0.20); Immature Granulocytes % (auto) 0.2 %; Lymphocytes # (auto) 1.37 K/uL (1.20-3.40); Lymphocytes % (auto) 26.7 %; Mean Corpuscular Hemoglobin 28.3 pg (25.0-34.0); Mean Corpuscular Hgb Conc 32.5 g/dL (32.0-36.0); Mean Corpuscular Volume 87.1 fL (80.0-100.0); Mean Platelet Volume 10.1 fL (9.4-12.4); Monocytes # (auto) 0.49 K/uL (0.11-0.59); Monocytes % (auto) 9.5 %; Neutrophils # (auto) 2.89 K/uL (1.40-6.50); Neutrophils % (auto) 56.2 %; Platelet Count 293 K/uL (130-400); RDW Coefficient of Variation 13.1 % (11.5-14.5); RDW Standard Deviation 41.5 fL (36.4-46.3); Red Blood Count 4.27 M/uL (4.70-6.10); White Blood Count 5.14 K/ul (4.8-10.8)
--- NOTE | 2023-09-16 07:27 | Hospitalist Progress Note ---
Date of Service September 16, 2023 Assessment & Plan (1) Diabetic ulcer of left foot associated with diabetes mellitus due to underlying condition, with necrosis of bone: Plan: Continue IV zosyn and vanco, follow cultures and supportive care. MRI confirms osteomyelitis of second toe distal phalnyl Dr Martinez surgery recommend surgical amputation of the second toe and debridement of the third toe. Minimize direct pressure on the dorsum of the left foot second and third toes. Jn Martniez DO plans on amputation on 09/17/2023 (2) Type 2 diabetes mellitus with polyneuropathy: Plan: Basal Bolus insulin, adding NPH insulin x 1 dose increasing basal bolus doses Aic is 10.9 (3) HTN (hypertension): Plan: Continue amlodipine and lisinopril (4) CVA (cerebral infarction): Plan: continue secondary risk prevention with diabetic, blood pressure control and st atin Admission and Anticipated Discharge Date Admission Date: September 15, 2023 Subjective Very pleasant gentleman feels his injury to his toes came from having "COVID toes". Left foot has very marked deformities worse being the second toe but there is also a callus at the distal end of the great toe and an open area ulceration at the interphalange joint of the great toe on the dorsal surface. This currently is [place] and cream and difficult to tell where it is base is Physical Exam Physical Exam: Awake alert and appropriate. Her exam is regular distant no significant murmurs or Lungs are clear with good air movement Abdomen NABS soft and nontender Left lower extremity has deformed toes with very mangled looking second toe with large ulceration on the top great toe as described in the subjective portion Results & Data Results & Data Vital Signs (Past 12 Hours) Vital Signs Temp Pulse Resp BP Pulse Ox O2 Del Method 09/16/23 07:13 97.7 F 66 16 159/85 H 98 Room Air 09/15/23 20:48 98.1 F 65 18 167/90 H 97 Room Air Laboratory Results Reviewed CBC Reviewed chemistry Reviewed [id number] glucose with poor glucose control PG Care Time/CCT Total # of Minutes Spent Total Time Spent with Patient: Total time spent is greater than 50% in coordination of care (as documented) at patient's floor/unit and/or counseling patient: Coding Level of Care Code 96840 SUB INP/OBS CARE 2/35MIN Diagnoses Diabetic ulcer of toe of left foot associated with diabetes mellitus due to underlying condition, with necrosis of bone E08.621; L97.524 Diabetic foot ulcer location: toe Type 2 diabetes mellitus with polyneuropathy E11.42 HTN (hypertension) I10 Hypertension type: unspecified CVA (cerebral infarction) I63.9 (1) Diabetic ulcer of left foot associated with diabetes mellitus due to underlying condition, with necrosis of bone Diabetic foot ulcer location: toe Qualified Code(s): E08.621 - Diabetes mellitus due to underlying condition with foot ulcer; L97.524 - Non-pressure chronic ulcer of other part of left foot with necrosis of bone (3) HTN (hypertension) Hypertension type: unspecified Qualified Code(s): I10 - Essential (primary) hypertension
[2023-09-16 07:33] LABS: Albumin Level 3.3 gm/dl (3.4-5.0); BUN Creatinine Ratio 18.8 (10-20); Bilirubin Direct 0.1 mg/dl (0-0.2); Bilirubin,Total 0.6 mg/dl (0.2-1.0); Calcium 8.8 mg/dl (8.6-10.3); Creatinine Clr Calc Pharmacy 62.3 ml/min; Est GFR (African American) 65.3 ml/min; Est GFR (Non-African American) 56.3 ml/min; Magnesium 1.7 mg/dl (1.7-2.4); Phosphorus 2.9 mg/dl (2.5-4.9); Potassium 4.3 mmol/L (3.5-5.1); Total Protein 8.2 gm/dl (6.0-8.3)
[2023-09-16] MEDS: PIPERACILLIN/TAZOBACTAM 4.5 GM in DEXTROSE 5% MINI-B 100 ML IV SCH ×3 (07:33→23:53)
[2023-09-16] MEDS: lisinopril 40 MG TAB PO SCH (07:36)
[2023-09-16] MEDS: HYDROXYCHLOROQUINE SULFATE 200 MG TAB PO SCH (07:36)
[2023-09-16] MEDS: NORTRIPTYLINE HCL 25 MG CAP PO SCH ×2 (07:36→20:00)
[2023-09-16] MEDS: DOCUSATE SODIUM 100 MG CAP PO SCH ×2 (07:37→19:59)
[2023-09-16] MEDS: ATORVASTATIN 10 MG TAB PO SCH (07:37)
[2023-09-16] MEDS: FOLIC ACID 1 MG TAB PO SCH (07:37)
[2023-09-16] MEDS: INSULIN ASPART PER UNIT CHARGE SC SCH ×4 (08:17→20:46)
[2023-09-16] MEDS: AMMONIUM LACTATE 12% LOTION 225 GM BTL EXT SCH ×2 (08:18→19:59)
[2023-09-16] MEDS ORDERED: NON-FORMULARY MEDICATION (Dapagliflozin Propanediol [Farxiga] 10 mg Tablet) PO SCH (09:00)
[2023-09-16] MEDS ORDERED: LANTUS PER UNIT CHARGE SQ SCH (09:00)
--- NOTE | 2023-09-16 11:53 | Orthopedic Progress Note ---
Date of Service September 16, 2023 Assessment & Plan (1) Diabetic ulcer of left foot associated with diabetes mellitus due to underlying condition, with necrosis of bone: Plan: Continue IV antibiotics and supportive care. N.p.o. after midnight for surgery planned for tomorrow am. Based upon findings of the MRI performed last evening, patient will require amputation of the second toe, partial amputation of the great toe and debridement of the third toe diabetic ulcer. All potential risks, benefits, complications, alternatives and rehab were discussed the patient. Patient decided to proceed with the procedure as indicated. Minimize direct pressure on the dorsum of the left foot second and third toes and plantar great toe. Daily dry dressing changes left foot. Thank you for the opportunity to consult in the care of this patient. Jn Martinez DO [facility] [place] [phone] (2) Diabetic ulcer of foot with fat layer exposed: (3) Cellulitis of foot, left: (4) Gangrene of toe: (5) Type 2 diabetes mellitus with polyneuropathy: Admission and Anticipated Discharge Date Admission Date: September 15, 2023 Subjective Patient seen on rounds. Continued ulceration, osteomyelitis and cellulitis left foot, first, second and third toes. Patient awake and alert without complaints of left foot pain, fevers or chills. MRI completed last evening. Confirmed findings of osteomyelitis in the first and second toes. No new complaints. Physical Exam Constitutional: WD/WN, vitals as above Eyes: PERRL, conjunctivae normal, anicteric sclerae ENMT: external ear and nose normal, oropharynx normal Neck: trachea midline, no thyromegaly Respiratory: No conversational dyspnea. No labored breathing. Cardiovascular: Regular rate and rhythm. Extremities well-perfused x 4. Gastrointestinal (Abdomen): Abdomen soft. Nontender and nondistended. Bowel sounds present. Musculoskeletal: Left foot cellulitis, erythema to the midfoot and distal ankle. Fusiform edema of the first, second and third toes left foot. Multiple claw toe deformities left foot. Ulcerations of the plantar first toe dorsal second and third toes ulcerations measuring approximately 1 cm in diameter in each respective toe. Necrosis, slough and maceration of the first, second and third toes. Exposed dried tenosynovium of the second toe with perforation into the muscle layer. Ulceration to the skin of the first and third toes. Nontender to palpation due to dense polyneuropathy. Pedal pulses are palpable. Feet are warm. Neurologic: PERRL, EOMI, accommodation nl, no face palsy, no dysarthria Psychiatric: A+Ox3, euthymic affect Lymphatic: no cervical or axillary lymphadenopathy Results & Data Vital Signs (Past 12 Hours) Vital Signs Temp Pulse Resp BP Pulse Ox O2 Del Method 09/16/23 07:13 36.5 C 66 16 159/85 H 98 Room Air Diagnostic Findings MRI left foot with contrast confirms osteomyelitis of the second toe proximal middle and distal phalanges, osteomyelitis of the great toe distal phalanx with ulceration of the first, second and third toes. Claw toe deformities are also confirmed. No other focal abscess or osteomyelitis noted. (1) Diabetic ulcer of left foot associated with diabetes mellitus due to underlying condition, with necrosis of bone Diabetic foot ulcer location: toe Qualified Code(s): E08.621 - Diabetes mellitus due to underlying condition with foot ulcer; L97.524 - Non-pressure chronic ulcer of other part of left foot with necrosis of bone (2) Diabetic ulcer of foot with fat layer exposed Diabetes mellitus type: other specified (including ALEXYS) Diabetic foot ulcer location: toe Laterality: left Qualified Code(s): E13.621 - Other specified diabetes mellitus with foot ulcer; L97.522 - Non-pressure chronic ulcer of other part of left foot with fat layer exposed
[2023-09-16] MEDS: amLODIPine BESYLATE 5 MG TAB PO SCH (12:01)
[2023-09-16] MEDS ORDERED: INSULIN HUMAN NPH SC ONE (12:30)
[2023-09-16] MEDS ORDERED: NovoLIN-N (NPH) PER UNIT CHARGE SQ STA (12:55)
[2023-09-16] MEDS: VANCOMYCIN HCL 1,250 MG in SODIUM CHLORIDE 0.9% 250 ML IV SCH (18:25)
[2023-09-16] MEDS: LANTUS PER UNIT CHARGE SQ SCH (20:46)
[2023-09-17] MEDS ORDERED: Nursing to Pharmacy Communication SCH (01:45)
[2023-09-17] MEDS ORDERED: INSULIN ASPART PER UNIT CHARGE SC SCH (06:00)
[2023-09-17] MEDS ORDERED: PROPOFOL IV EMULSION 10 MG/ML 20 ML VIAL IV ONE ×4 (07:18→08:03)
[2023-09-17] MEDS ORDERED: fentaNYL citrate PF 100 MCG/2 ML VIAL ONE (07:18)
[2023-09-17] MEDS ORDERED: MIDAZOLAM HCL 1 MG/ML 2ML VIAL ONE ×2 (07:18→08:06)
[2023-09-17] MEDS: PIPERACILLIN/TAZOBACTAM 4.5 GM in DEXTROSE 5% MINI-B 100 ML IV SCH ×2 (07:26→16:13)
[2023-09-17] MEDS: DOCUSATE SODIUM 100 MG CAP PO SCH ×2 (07:27→20:59)
[2023-09-17] MEDS ORDERED: BUPIVACAINE 0.5 % 5 MG/1 ML MPF 30ML VIAL ONE (07:30)
--- NOTE | 2023-09-17 07:49 | Anesthesiology Consultation ---
Date of Service September 17, 2023 Assessment & Plan Chart Review Chart Review: Acceptable Risk for Surgery and Patient NOT seen in Pre Admission Testing Consults Requested none ASA ASA3 Proposed Anesthesia Anesthesia Type: MAC Risk / Benefits Reviewed With: PT / POA / Parent / Guardian, Accepts Plan and Informed Consent Obtained History Surgery Operation Date: 09/17/23 07:30 Proposed Procedures p Amputation Toe(Left) - Jn Martinez DO Height/Weight Height: 5 ft 11 in Weight: 92.1 kg Allergies Allergy/AdvReac Type Severity Reaction Status Date / Time No Known Allergies Allergy Verified 08/22/23 10:00 Medications Home Medications Medication Instructions Recorded Confirmed Last Taken docusate sodium 100 mg tablet 100 mg PO BID 10/18/20 08/22/23 03/12/23 06:30 etanercept 50 mg/mL (1 mL) 50 mg subcut WK 10/18/20 08/22/23 03/08/23 subcutaneous syringe (Enbrel) folic acid 1 mg tablet 1 mg PO DAILY 10/18/20 08/22/23 03/12/23 glucagon HCl 1 mg solution for 1 mg subcut DIRECTED PRN 10/18/20 08/22/23 03/04/23 injection (Glucagon (HCl) Hypoglycemia Emergency Kit) hydroxychloroquine 200 mg tablet 200 mg PO DAILY 10/18/20 08/22/23 03/12/23 nortriptyline 25 mg capsule 25 mg PO BID 10/18/20 08/22/23 03/12/23 06:30 cyanocobalamin (vitamin B-12) 1,000 mcg PO DAILY 12/24/20 08/22/23 03/12/23 1,000 mcg tablet (Vitamin B-12) lisinopril 40 mg tablet 40 mg PO DAILY #90 tabs 09/24/22 08/22/23 03/12/23 amlodipine 10 mg tablet 10 mg PO DAILY 10/05/22 08/22/23 03/12/23 ammonium lactate 12 % lotion 1 applic topical BID 10/05/22 08/22/23 03/02/23 atorvastatin 10 mg tablet 10 mg PO DAILY 10/05/22 08/22/23 03/12/23 insulin glargine 100 unit/mL See Rx Instructions .Route .COMPLEX 10/05/22 08/22/23 10/05/22 subcutaneous solution albuterol sulfate 90 mcg/actuation 2 puff inhalation QID PRN 03/12/23 08/22/23 03/11/23 aerosol inhaler Shortness Of Breath dapagliflozin propanediol 10 mg 10 mg PO DAILY 03/12/23 08/22/23 03/12/23 tablet (Farxiga) glucose 4 gram chewable tablet 4 g PO DIRECTED PRN 03/12/23 08/22/23 02/27/23 HYPOGLYCLEMIA insulin regular human 100 unit/mL 1 sliding scale dose subcut BID 03/12/23 08/22/23 03/12/23 07:00 injection solution (Novolin R Regular U-100 Insulin) Active Medications Generic Name Dose Route Start Last Admin Trade Name Freq PRN Reason Stop Dose Admin Amlodipine Besylate 10 mg 09/16/23 09:00 09/16/23 12:01 Amlodipine Besylate 5 Mg Tab PO 10/16/23 08:59 10 mg DAILY REINA Administration Atorvastatin Calcium 10 mg 09/16/23 09:00 09/16/23 07:37 Atorvastatin 10 Mg Tab PO 10/16/23 08:59 10 mg DAILY REINA Administration Docusate Sodium 100 mg 09/15/23 21:00 09/17/23 07:27 Docusate Sodium 100 Mg Cap PO 10/15/23 20:59 Not Given BID REINA Folic Acid 1 mg 09/16/23 09:00 09/16/23 07:37 Folic Acid 1 Mg Tab PO 10/16/23 08:59 1 mg DAILY REINA Administration Hydroxychloroquine Sulfate 200 mg 09/16/23 09:00 09/16/23 07:36 Hydroxychloroquine Sulfate 200 Mg Tab PO 10/16/23 08:59 200 mg DAILY REINA Administration Piperacillin Sod/Tazobactam 100 mls @ 25 mls/hr 09/15/23 16:00 09/17/23 07:31 Sod 4.5 gm/ Dextrose IV 10/27/23 15:59 0 mls/hr Q8H REINA Infusion Protocol Vancomycin HCl 1,250 mg/ 275 mls @ 200 mls/hr 09/16/23 18:00 09/16/23 20:05 Sodium Chloride IV 09/23/23 00:00 Infused Q18H REINA Infusion Insulin Aspart 0 units 09/17/23 06:00 09/17/23 06:07 Insulin Aspart Per Unit Charge SC 10/17/23 05:59 Not Given Q6 REINA Insulin Glargine 20 units 09/16/23 21:00 09/16/23 20:46 Lantus Per Unit Charge SQ 10/16/23 20:59 20 units BID REINA Administration Lactic Acid 15 gm 09/15/23 21:00 09/16/23 19:59 Ammonium Lactate 12% Lotion 225 Gm Btl EXT 10/15/23 20:59 15 gm BID REINA Administration Lisinopril 40 mg 09/16/23 09:00 09/16/23 07:36 Lisinopril 40 Mg Tab PO 10/16/23 08:59 40 mg DAILY REINA Administration Miscellaneous 1 each 09/15/23 16:00 09/17/23 07:26 Dapagliflozin [Farxiga] 10mg Tab: Order Awaiting Action N/A 10/15/23 15:59 Not Given QS REINA Nortriptyline HCl 25 mg 09/15/23 21:00 09/16/23 20:00 Nortriptyline Hcl 25 Mg Cap PO 10/15/23 20:59 25 mg BID REINA Administration NPO Date Last Intake of Fluids: 09/16/23 Date Last Intake of Solids: 09/16/23 Past Medical History Medical History (Updated 09/15/23 @ 18:19 by Jn Martinez DO) CKD (chronic kidney disease) APRIL (acute kidney injury) Elevated troponin HHNC (hyperglycemic hyperosmolar nonketotic coma) Orthostatic hypotension (2015) Anemia Syncope (2015) Colitis CVA (cerebral infarction) (2015) Hyperlipidemia Diabetes HTN (hypertension) Exercise / Class Metabolic Activity II 4-5 Yardwork/Stairs/Walk up hill Past Family History Family History Other Family history non-contributory Past Surgical History Surgical History S/P craniotomy Surgical history unknown Past Anesthesia History No Hx of Anesthesia Complications and No Family Hx of Anesthesia Complications History of PONV No Hx of PONV and No Hx of Motion Sickness Social History Smoking Status: Former smoker Do You Dip or Chew Tobacco: No Hx Alcohol Use: No Hx Substance Use: No substance use type: marijuana and heroin Substance Use Type Other:: K2 Last Used Substance Other:: 2006 Review of Systems ROS Unobtainable: All systems reviewed & are unremarkable except as noted in HPI & below Physical Exam Vital Signs Last Vital Signs Temp 36.5 C 09/17/23 07:22 Pulse 65 09/17/23 07:22 Resp 16 09/17/23 07:22 BP 179/89 H 09/17/23 07:22 Pulse Ox 100 09/17/23 07:22 O2 Del Method Room Air 09/17/23 07:22 ENMT Mouth: + dentition abnormality (numerous missing teeth, none loose); no TMJ abnormality Thyromental Distance: > or= 3.5 Finger Breadths Mallampati Class: II Neck normal visual inspection and trachea midline; neck extension not limited Respiratory normal respiratory effort Auscultation: lungs clear to auscultation bilaterally Cardiovascular Rate/Rhythm: regular rate and regular rhythm Heart Sounds: no murmur Musculoskeletal Spine: normal cervical ROM Extremities: full ROM of extremities Neurologic moves all extremities Psychiatric Orientation: alert and oriented x 3 Testing Laboratory Results 09/16/23 06:13 09/16/23 06:13 PT 11.0 Seconds (9.0-12.0) 09/15/23 10:00 INR 1.0 (0.9-1.1) 09/15/23 10:00 APTT 28 Seconds (21-31) 09/15/23 10:00 Urine Color Yellow 09/15/23 11:42 Urine Appearance Clear (Clear) 09/15/23 11:42 Urine pH 6.5 (4.5-7.5) 09/15/23 11:42 Ur Specific Sears 1.015 (1.000-1.030) 09/15/23 11:42 Urine Protein 1+ (Negative) H 09/15/23 11:42 Urine Glucose (UA) Negative (Negative) 09/15/23 11:42 Urine Ketones Negative (Negative) 09/15/23 11:42 Urine Nitrite Negative (Negative) 09/15/23 11:42 Ur Leukocyte Esterase Negative (Negative) 09/15/23 11:42 Urine WBC (Auto) 0 /hpf (0-5) 09/15/23 11:42 Urine RBC (Auto) 0-4 /hpf (0-4) 09/15/23 11:42 U Hyaline Cast (Auto) 0 /lpf (0-5) 09/15/23 11:42 U Epithel Cells (Auto) 0-5 /lpf (0-5) 09/15/23 11:42 Urine Bacteria (Auto) Negative (Negative) 09/15/23 11:42 09/15/23 10:08 Aerobic Blood Culture - Preliminary Blood No growth in Aerobic bottle after 24 hours. Anaerobic Blood Culture - Preliminary No growth in Anaerobic bottle after 24 hours. 09/15/23 10:00 Aerobic Blood Culture - Preliminary Blood No growth in Aerobic bottle after 24 hours. Anaerobic Blood Culture - Preliminary No growth in Anaerobic bottle after 24 hours. 09/15/23 10:00 Gram Stain - Final Foot,Left Wound Culture - Preliminary Pin-point growth present, reincubating. 09/17/23 09/16/23 06:06 20:36 POC Glucose 87 172 H Electrocardiogram Date: 09/15/23 Findings: + NSR @ Echocardiogram Date: 02/24/21 EF: 55-60
[2023-09-17] MEDS ORDERED: fentaNYL citrate PF 100 MCG/2 ML VIAL IV PRN (07:52)
[2023-09-17] MEDS ORDERED: ATROPINE SULFATE 0.1 MG/ML 10ML SYR IV PRN (07:52)
[2023-09-17] MEDS ORDERED: ePHEDrine sulfate 50 MG/ML AMP IV PRN (07:52)
[2023-09-17] MEDS ORDERED: ONDANSETRON INJ 2 MG/ML 2 ML VIAL IV PRN (07:52)
--- NOTE | 2023-09-17 07:52 | History & Physical Bridge Note ---
Date of Service September 17, 2023 History & Physical Bridge Note I have examined the patient, reviewed the History & Physical and in the interval since the performance of the History & Physical I have noted the following changes of clinical significance: no changes noted
[2023-09-17] MEDS ORDERED: KETAMINE HCL 10MG/ML SYR ONE (07:59)
[2023-09-17] MEDS ORDERED: ONDANSETRON INJ 2 MG/ML 2 ML VIAL ONE (07:59)
[2023-09-17] MEDS ORDERED: GLYCOPYRROLATE 0.2 MG/ML VIAL ONE (07:59)
[2023-09-17] MEDS ORDERED: ePHEDrine sulfate 50 MG/5 ML SYR ONE (08:21)
--- NOTE | 2023-09-17 09:34 | Pharmacy Report ---
Pharmacy PK ABX Note - Date of Service September 17, 2023 - Assessment and Plan Assessment 09/17 * Osteomyelitis confirmed by MRI. Plans for amputation of second toe, partial great toe amputationg and debridement of third toe today. * Continues on vanc/zosyn 09/16 68 year old M receiving VANCOMYCIN/ZOSYN for treatment of diabetic foot ulcer with possible osteomyelitis. Blood and left foot culture pending. Plan Vancomycin * Loading dose: 2000 mg IV x 1 * Maintenance dose: 1250mg IV every 18 hours * Random level this AM 15.2 predict achievement of target AUC/TESSY * Random level in 2-3 days or with change in renal function Pharmacy will continue to follow and will adjust dose/frequency as necessary. Thank you. Pharmacy has transitioned to AUC monitoring for vancomycin. AUC/TESSY is the preferred PK/PD target and is associated with decreased risk of nephrotoxicity compared to traditional trough targets.
--- NOTE | 2023-09-17 09:53 | Operative Report ---
Post Operative Report Pre & Post Diagnosis Operation Date: 09/17/23 07:30 Pre-Op Diagnosis: (1) Diabetic ulcer of left foot associated with diabetes mellitus due to underlying condition, with necrosis of bone. (2) Diabetic ulcer of foot with fat layer exposed. (3) Cellulitis of foot, left. (4) Gangrene of second toe. (5) Type 2 diabetes mellitus with polyneuropathy. (6) Osteomyelitis second toe and Great toe. Post-Op Diagnosis: (1) Diabetic ulcer of left foot associated with diabetes mellitus due to underlying condition, with necrosis of bone. (2) Diabetic ulcer of foot with muscle layer exposed third toe. (3) Cellulitis of foot, left. (4) Gangrene of second toe. (5) Type 2 diabetes mellitus with polyneuropathy. (6) Osteomyelitis second toe and Great toe. (7) Flexor contraction third toe. (8) Tenosynovitis third toe (9) Claw toes 2,3,4,5 I identified the patient and participated in the time-out.: Yes Procedure Operation Date: 09/17/23 07:30 Actual Procedures p (1) Left second toe amputation, (2) left great toe partial amputation (3) left third toe irrigation and debridement to level of muscle 1.5cm x 1.0 cm (4) tenosynovectomy third toe extensor (5) flexor tenotomy toe third toe(Left) - Jn Martinez DO Surgeon Jn Martinez DO Financial Planning Consultant None Estimated Blood Loss 1 Findings Consistent with Post-Op Diagnosis Specimens Second toe amputation, distal great toe amputation for pathology. Aerobic/anaerobic/Gram stain second toe. Drains None Anesthesia Type MAC Regional Complications none Disposition Accompanied Patient To Recovery: No Indications This 68-year-old [facility] inmate developed a 2-month history of severe ulceration, swelling, necrosis, odor and pain of his left foot primarily of the first, second and third toes. He failed oral antibiotic treatment and had fusiform swelling of the toes extending into the foot with redness and streaking. He was initially scheduled to go to the wound care center but was then referred to the emergency department due to the severity of his infection and then he was admitted to the hospitalist service. Orthopedics was consulted and MRI was ordered noting extensive osteomyelitis, bone necrosis involving the first toe and the second toe with significant cellulitis and soft tissue swelling. Patient was scheduled for surgery as indicated. Description of Procedure All potential risks, benefits, complications, alternatives, rehab, need for further surgery, potential for incomplete relief of symptoms, neurovascular injury, DVT, PE, , stiffness, weakness, loss of function, persistent pain, swelling, numbness, bone fracture and wound complications were discussed with the patient. The patient decided to proceed with the procedure as indicated. The patient was taken to the operative suite and placed supine on the operating room table. The consent was reviewed and the proper operative site was identified. The patient was sedated and the lower extremity was then sterilely prepped and draped in the usual fashion. A regional ankle block was performed prior to the procedure using 30 cc of 0.5% Marcaine plain. Next the limb was elevated and exsanguinated with an Esmarch bandage. An Esmarch bandage was then placed over a sterile surgical towel at the level of the ankle. After surgical timeout was performed, a 15 blade scalpel was used to make an elliptical incision started at the proximal dorsal base of the second toe extending medially and laterally to the plantar aspect of the base of the second toe. This incision was deepened through the subcutaneous tissue both medially and laterally. Next careful scissor dissection was then performed to identify the neurovascular bundles which were then cauterized medially and laterally. Next the extensor tendon was then incised dorsally and the flexor tendon was incised at the plantar aspect of the second toe. Next Vikash retractors were placed in the incision revealing the capsular ligaments circumferentially which were then released with a 15 blade scalpel at the second metatarsophalangeal joint. Next the toe was then sampled for aerobic, anaerobic and Gram stain, removed and passed off for pathologic specimen. Next the amputation site was copiously irrigated with sterile normal saline using a pulse lavage. The skin flaps were then carefully closed with interrupted 3-0 Monocryl bacteriostatic sutures using combination of simple and horizontal mattress sutures. Next attention was directed to the necrotic great toe. A partial fishmouth incision was made to the distal great toe at the level of the interphalangeal joint with a longer plantar flap. The large macerated ulceration distally was excised with the discarded tissue. The incision was deepened dorsally to the level of the interphalangeal joint followed by sacrifice of the extensor, collaterals and plantar flexor with a 15 blade scalpel. The distal phalanx was then passed off as specimen for pathology. The plantar flap was then debrided to a low-tension closure and the site was copiously irrigated with sterile saline using a pulse lavage. The great toe tissue flaps were closed using a com bination of buried and simple 3-0 Monocryl bacteriostatic suture. Next attention was directed to the third toe. The dorsal ulcer was sharply debrided of slough and devitalized tissue with a 15 blade scalpel and forcep. The ulcer size was noted 1.5 cm x 1.0 cm after sharp debridement to the level of muscle. The extensor tendon was noted to have hypertrophic tenosynovitis and scarring. Tenosynovectomy was performed with a 15 blade scalpel. The site was irrigated with sterile saline with pulse lavage until clear. Next attention was directed to the plantar aspect of the third toe. The severe claw toe deformity of the third toe with flexion contracture was a primary contributing factor of the deformity and resultant dorsal ulceration. Next a transverse incision was made at the base of the third toe with a 15 blade scalpel measuring approximately 6 mm. Hemostat was used to carefully dissect through the plantar soft tissue to the level of the flexor tendon. 15 blade scalpel was used to perform a open tenotomy releasing the flexion contracture. The toe was then stretched dorsally resolving the fixed contracture. The incision site was irrigated with pulse lavage and sterile saline. Next the plantar third toe incision was closed using combination of buried interrupted 3- 0 Monocryl and simple Monocryl. A sterile bulky compressive forefoot dressing was applied overwrapped with a coban. The tourniquet was released. The patient was awakened and taken to recovery in stable condition. I attest to the content of the Intraoperative Record and any orders documented therein. Any exceptions are noted below.
[2023-09-17] MEDS: ATORVASTATIN 10 MG TAB PO SCH (10:40)
[2023-09-17] MEDS: HYDROXYCHLOROQUINE SULFATE 200 MG TAB PO SCH (10:40)
[2023-09-17] MEDS: amLODIPine BESYLATE 5 MG TAB PO SCH (10:41)
[2023-09-17] MEDS: NORTRIPTYLINE HCL 25 MG CAP PO SCH ×2 (10:41→20:59)
[2023-09-17] MEDS: FOLIC ACID 1 MG TAB PO SCH (10:41)
[2023-09-17] MEDS: AMMONIUM LACTATE 12% LOTION 225 GM BTL EXT SCH ×2 (10:42→21:05)
[2023-09-17] MEDS: lisinopril 40 MG TAB PO SCH (10:42)
[2023-09-17] MEDS: LANTUS PER UNIT CHARGE SQ SCH ×2 (10:45→21:26)
--- NOTE | 2023-09-17 11:25 | Anesthesiology Progress Note ---
Date of Service September 17, 2023 Anesthesia Post Procedure Vital Signs Vital Signs: Temp Pulse Pulse Resp BP Pulse Ox O2 Del Method 09/17/23 11:12 36.4 C L 69 17 174/91 H 99 Room Air 09/17/23 10:34 68 16 160/89 H 98 Room Air 09/17/23 10:20 36.2 C L 71 12 145/94 H 97 Room Air 09/17/23 10:10 66 14 126/83 97 Room Air 09/17/23 10:00 67 12 159/88 H 100 Room Air 09/17/23 09:50 71 12 153/99 H 97 Room Air 09/17/23 09:40 72 14 153/90 H 97 Room Air 09/17/23 09:30 68 14 151/94 H 95 Room Air 09/17/23 09:20 36.1 C L 65 12 143/91 H 99 Oxymask 09/17/23 07:22 36.5 C 65 16 179/89 H 100 Room Air 09/16/23 19:58 36.9 C 65 18 153/78 H 97 Room Air 09/16/23 14:35 36.7 C 68 16 165/76 H 99 Room Air O2 Flow Rate 09/17/23 11:12 09/17/23 10:34 09/17/23 10:20 09/17/23 10:10 09/17/23 10:00 09/17/23 09:50 09/17/23 09:40 09/17/23 09:30 09/17/23 09:20 5 09/17/23 07:22 09/16/23 19:58 09/16/23 14:35 Pain Intensity Left Foot: Pain Intensity: 5 Transfer of Care Handoff Completed per policy Notes Mental Status: alert / awake / arousable Patient Amnestic to Procedure: Yes Nausea / Vomiting: adequately controlled Pain: adequately controlled Airway Patency, RR, SpO2: stable & adequate BP & HR: stable & adequate Hydration State: stable & adequate Anesthetic Complications: no major complications apparent and Pt Satisfied with anesthetic care
[2023-09-17] MEDS: INSULIN ASPART PER UNIT CHARGE SC SCH ×3 (11:26→21:25)
--- NOTE | 2023-09-17 13:28 | Hospitalist Progress Note ---
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 MRI confirms osteomyelitis of second toe distal phalynx 09/17/23 Left second toe amputation, (2) left great toe partial amputation (3) left third toe incision and debridement to level of muscle 1.5cm x 1.0 cm (4) tenosynovectomy third toe extensor (5) flexomoty toe third toe Surgeon: Jn Martinez DO Patient returned to the floor good condition (2) Type 2 diabetes mellitus with polyneuropathy: Plan: Basal Bolus insulin, adding NPH insulin x 1 dose on 09/16. Basal dose now Lantus 20 twice daily with sliding scale insulin. Aic is 10.9 (3) HTN (hypertension): Plan: Continue amlodipine and lisinopril (4) CVA (cerebral infarction): Plan: continue secondary risk prevention with diabetic, blood pressure control and statin Admission and Anticipated Discharge Date Admission Date: September 15, 2023 Subjective Very pleasant gentleman feels his injury to his toes came from having "COVID toes". Patient is seen postoperative on 1224 he is in good spirits with good pain control and no residual issues from anesthesia Physical Exam Physical Exam: Awake alert and appropriate. Her exam is regular distant no significant murmurs or Lungs are clear with good air movement Abdomen NABS soft and nontender Left lower extremity has a large bandage in place with Coban. Edema to his lower extremity has improved Results & Data Results & Data Vital Signs (Past 12 Hours) Vital Signs Temp Pulse Pulse Resp BP Pulse Ox O2 Del Method 09/17/23 13:03 97.9 F 69 17 151/88 H 100 Room Air 09/17/23 12:02 97.5 F L 80 17 145/87 H 97 Room Air 09/17/23 11:12 97.5 F L 69 17 174/91 H 99 Room Air 09/17/23 10:34 68 16 160/89 H 98 Room Air 09/17/23 10:20 97.2 F L 71 12 145/94 H 97 Room Air 09/17/23 10:10 66 14 126/83 97 Room Air 09/17/23 10:00 67 12 159/88 H 100 Room Air 09/17/23 09:50 71 12 153/99 H 97 Room Air 09/17/23 09:40 72 14 153/90 H 97 Room Air 09/17/23 09:30 68 14 151/94 H 95 Room Air 09/17/23 09:20 97.0 F L 65 12 143/91 H 99 Oxymask 09/17/23 07:22 97.7 F 65 16 179/89 H 100 Room Air O2 Flow Rate 09/17/23 13:03 09/17/23 12:02 09/17/23 11:12 09/17/23 10:34 09/17/23 10:20 09/17/23 10:10 09/17/23 10:00 09/17/23 09:50 09/17/23 09:40 09/17/23 09:30 09/17/23 09:20 5 09/17/23 07:22 Laboratory Results Labs ordered pending for 1225 PG Care Time/CCT Total # of Minutes Spent Total Time Spent with Patient: Total time spent is greater than 50% in coordination of care (as documented) at patient's floor/unit and/or counseling patient: Coding Level of Care Code 74846 SUB INP/OBS CARE 2/35MIN Diagnoses Diabetic ulcer of toe of left foot associated with diabetes mellitus due to underlying condition, with necrosis of bone E08.621; L97.524 Diabetic foot ulcer location: toe Type 2 diabetes mellitus with polyneuropathy E11.42 HTN (hypertension) I10 Hypertension type: unspecified CVA (cerebral infarction) I63.9 (1) Diabetic ulcer of left foot associated with diabetes mellitus due to underlying condition, with necrosis of bone Diabetic foot ulcer location: toe Qualified Code(s): E08.621 - Diabetes mellitus due to underlying condition with foot ulcer; L97.524 - Non-pressure chronic ulcer of other part of left foot with necrosis of bone (3) HTN (hypertension) Hypertension type: unspecified Qualified Code(s): I10 - Essential (primary) hypertension
[2023-09-17] MEDS: VANCOMYCIN HCL 1,250 MG in SODIUM CHLORIDE 0.9% 250 ML IV SCH (13:44)
[2023-09-17] MEDS ORDERED: MoRPHine SULFATE 2 MG/ML CARP IV ONE (16:33)
[2023-09-17] MEDS ORDERED: MoRPHine SULFATE 4 MG/ML 1 ML CARP\\VIAL IV PRN (17:17)
[2023-09-17] MEDS ORDERED: MoRPHine SULFATE 2 MG/ML CARP IV PRN (17:17)
[2023-09-17] MEDS ORDERED: ACETAMINOPHEN 500 MG TAB PO PRN (17:17)
[2023-09-17] MEDS: oxyCODONE HCL IR 5 MG TAB (IMMEDIATE RELEASE) PO PRN (21:25)
[2023-09-18] MEDS: PIPERACILLIN/TAZOBACTAM 4.5 GM in DEXTROSE 5% MINI-B 100 ML IV SCH ×3 (00:11→15:25)
[2023-09-18] MEDS: VANCOMYCIN HCL 1,250 MG in SODIUM CHLORIDE 0.9% 250 ML IV SCH (06:28)
[2023-09-18 06:30] LABS: Basophils # (auto) 0.04 K/uL (0.00-0.20); Basophils % (auto) 0.6 %; Eosinophils # (auto) 0.42 K/uL (0.00-0.50); Eosinophils % (auto) 5.8 %; Hematocrit (blood only) 33.2 % (42.0-52.0); Hemoglobin 10.8 g/dl (14.0-18.0); Immature Granulocytes # (auto) 0.02 K/uL (0.01-0.20); Immature Granulocytes % (auto) 0.3 %; Lymphocytes # (auto) 1.75 K/uL (1.20-3.40); Lymphocytes % (auto) 24.2 %; Mean Corpuscular Hemoglobin 28.7 pg (25.0-34.0); Mean Corpuscular Hgb Conc 32.5 g/dL (32.0-36.0); Mean Corpuscular Volume 88.3 fL (80.0-100.0); Monocytes # (auto) 1.02 K/uL (0.11-0.59); Monocytes % (auto) 14.1 %; Neutrophils # (auto) 3.98 K/uL (1.40-6.50); Platelet Count 251 K/uL (130-400); RDW Coefficient of Variation 13.1 % (11.5-14.5); RDW Standard Deviation 42.2 fL (36.4-46.3); Red Blood Count 3.76 M/uL (4.70-6.10); White Blood Count 7.23 K/ul (4.8-10.8)
[2023-09-18 06:34] LABS: BUN Creatinine Ratio 19.4 (10-20); Calcium 8.3 mg/dl (8.6-10.3); Creatinine Clr Calc Pharmacy 44.3 ml/min; Est GFR (African American) 43.2 ml/min; Est GFR (Non-African American) 37.3 ml/min; Magnesium 1.9 mg/dl (1.7-2.4); Phosphorus 4.1 mg/dl (2.5-4.9)
[2023-09-18] MEDS: amLODIPine BESYLATE 5 MG TAB PO SCH (07:45)
[2023-09-18] MEDS: DOCUSATE SODIUM 100 MG CAP PO SCH ×2 (07:46→21:23)
[2023-09-18] MEDS: AMMONIUM LACTATE 12% LOTION 225 GM BTL EXT SCH ×2 (07:46→21:24)
[2023-09-18] MEDS: FOLIC ACID 1 MG TAB PO SCH (07:46)
[2023-09-18] MEDS: ATORVASTATIN 10 MG TAB PO SCH (07:46)
[2023-09-18] MEDS: HYDROXYCHLOROQUINE SULFATE 200 MG TAB PO SCH (07:47)
[2023-09-18] MEDS: lisinopril 40 MG TAB PO SCH (07:47)
[2023-09-18] MEDS: NORTRIPTYLINE HCL 25 MG CAP PO SCH ×2 (07:48→21:23)
[2023-09-18] MEDS: LANTUS PER UNIT CHARGE SQ SCH ×2 (07:53→21:24)
[2023-09-18] MEDS: INSULIN ASPART PER UNIT CHARGE SC SCH ×4 (07:53→21:24)
--- NOTE | 2023-09-18 11:20 | Orthopedic Progress Note ---
Date of Service September 18, 2023 Assessment & Plan (1) Diabetic ulcer of left foot associated with diabetes mellitus due to underlying condition, with necrosis of bone: Plan: Continue IV antibiotics and supportive care. Postoperative day #1 status post amputation of the left foot second toe, partial amputation of the great toe, Tenosynovectomy third toe, flexor tenotomy third toe and debridement of the third toe diabetic ulcer to the level of muscle. Postop shoe left foot. Recommend nursing for dressing change to occur this evening. Minimize direct pressure on the dorsum of the left foot second and third toes and plantar great toe. May discontinue IV antibiotics when laboratory inflammatory indices are stabilized. Will require 7-10 days of oral antibiotics upon discharge. Orthopedically stable for [facility] after assessment and clearance by hospitalist team. Daily dry dressing changes left foot. Partial weightbearing with walker or cane on his heel with postoperative shoe. Follow-up with Dr. Martinez 3 weeks postoperative in outpatient clinic. Thank you for the opportunity to consult in the care of this patient. Jn Martinez DO [facility] orthopedic [place] [phone] (2) Diabetic ulcer of foot with fat layer exposed: (3) Cellulitis of foot, left: (4) Gangrene of toe: (5) Type 2 diabetes mellitus with polyneuropathy: Admission and Anticipated Discharge Date Admission Date: September 18, 2023 Subjective Patient seen on rounds and wished a Nuvia Olivo. No complaints. No left foot pain. States that his left foot swelling has gone down. Physical Exam Constitutional: WD/WN, vitals as above Eyes: PERRL, conjunctivae normal, anicteric sclerae ENMT: external ear and nose normal, oropharynx normal Neck: trachea midline, no thyromegaly Respiratory: No conversational dyspnea. Normal chest wall and air motion. Cardiovascular: Extremities perfused x 4. Gastrointestinal (Abdomen): Soft, nontender and nondistended. Musculoskeletal: Examination left foot demonstrates intact bulky bandage left foot. No strikethrough. Compartments are soft. Homans negative. Nontender to palpation at the surgical sites through the bandage. Neurologic: PERRL, EOMI, accommodation nl, no face palsy, no dysarthria Psychiatric: A+Ox3, euthymic affect Lymphatic: no cervical or axillary lymphadenopathy Results & Data Vital Signs (Past 12 Hours) Vital Signs Temp Pulse Resp BP Pulse Ox O2 Del Method 09/18/23 07:36 36.8 C 74 16 149/73 H 94 Room Air Laboratory Results Reviewed. (1) Diabetic ulcer of left foot associated with diabetes mellitus due to underlying condition, with necrosis of bone Diabetic foot ulcer location: toe Qualified Code(s): E08.621 - Diabetes mellitus due to underlying condition with foot ulcer; L97.524 - Non-pressure chronic ulcer of other part of left foot with necrosis of bone (2) Diabetic ulcer of foot with fat layer exposed Diabetes mellitus type: other specified (including ALEXYS) Diabetic foot ulcer location: toe Laterality: left Qualified Code(s): E13.621 - Other specified diabetes mellitus with foot ulcer; L97.522 - Non-pressure chronic ulcer of other part of left foot with fat layer exposed
[2023-09-18] MEDS: oxyCODONE HCL IR 5 MG TAB (IMMEDIATE RELEASE) PO PRN ×2 (11:50→17:49)
[2023-09-18] MEDS ORDERED: SODIUM CHLORIDE 0.9% 1,000 ML IV SCH (15:15)
--- NOTE | 2023-09-18 15:16 | Hospitalist Progress Note ---
Date of Service September 18, 2023 Assessment & Plan (1) Diabetic ulcer of left foot associated with diabetes mellitus due to underlying condition, with necrosis of bone: Plan: Continue IV zosyn and vanco, follow cultures and supportive care. MRI confirms osteomyelitis of second toe distal phalynx 09/17/23 Left second toe amputation, (2) left great toe partial amputation (3) left third toe incision and debridement to level of muscle 1.5cm x 1.0 cm (4) tenosynovectomy third toe extensor (5) flexomoty toe third toe Surgeon: Jn Martinez DO Reviewed recommendations by orthopedics todaysurgical dressing change ordered for tonight by nursing, surgical shoe, keep pressure off left forefoot, 7 to 10 days oral antibiotics, follow-up in podiatry clinic If creatinine stable or improved tomorrow will arrange discharge back to [facility] with outpatient follow-up (2) Type 2 diabetes mellitus with polyneuropathy: Plan: Continue basal bolus insulin -blood glucoses reviewed 09/18 improved compared to yesterday single reading above goal, no changes made Aic is 10.9 (3) HTN (hypertension): Plan: Continue amlodipine and lisinopril (4) CVA (cerebral infarction): Plan: continue secondary risk prevention with diabetic, blood pressure control and statin Plan CKD stage III Creatinine has been highly variable ranging from 1.3 on admission and yesterday, 1.7 on 09/15 and similarly variable on review of old labs. Today is 1.8. Hold lisinopril hydrate with 1 L normal saline, repeat BMP in a.m. Admission and Anticipated Discharge Date Admission Date: September 18, 2023 Subjective left foot pain, throbbing character. moderate - mostly in area "under" great toe no SOB, CP. N/V Physical Exam 2 Physical Exam: PHYSICAL EXAMINATION Last 24h vital signs reviewed, see documentation in flowsheet General: comfortable appearing, no distress HEENT: Normocephalic, atraumatic, pupils round and equal, sclerae anicteric, no conjunctival injection, moist mucus membranes Lungs: Normal respiratory effort. Clear to auscultation bilaterally. No RRW Heart: Regular rate and rhythm, no murmurs. No JVD Abdomen: Soft, nontender, nondistended. Bowel sounds present. Extremities: Warm, dry, well-perfused. Left foot is completely covered in surgical dressing and Mayank wrap No edema right lower extremity, trace edema left lower extremity above the Mayank wrap to mid casas Neuro: Alert and oriented x 4, face symmetric, moves 4 extremities well Psych: Normal affect and behavior Results & Data Results & Data Vital Signs (Past 12 Hours) Vital Signs Temp Pulse Resp BP Pulse Ox O2 Del Method 09/18/23 15:06 36.8 C 66 16 131/82 96 Room Air 09/18/23 07:36 36.8 C 74 16 149/73 H 94 Room Air Laboratory Results 09/18/23 05:50 09/18/23 05:50 PG Care Time/CCT Total # of Minutes Spent Total Time Spent with Patient: Total time spent is greater than 50% in coordination of care (as documented) at patient's floor/unit and/or counseling patient: Coding Level of Care Code 27218 SUB INP/OBS CARE 2/35MIN Diagnoses Diabetic ulcer of toe of left foot associated with diabetes mellitus due to underlying condition, with necrosis of bone E08.621; L97.524 Diabetic foot ulcer location: toe Type 2 diabetes mellitus with polyneuropathy E11.42 HTN (hypertension) I10 Hypertension type: unspecified CVA (cerebral infarction) I63.9 (1) Diabetic ulcer of left foot associated with diabetes mellitus due to underlying condition, with necrosis of bone Diabetic foot ulcer location: toe Qualified Code(s): E08.621 - Diabetes mellitus due to underlying condition with foot ulcer; L97.524 - Non-pressure chronic ulcer of other part of left foot with necrosis of bone (3) HTN (hypertension) Hypertension type: unspecified Qualified Code(s): I10 - Essential (primary) hypertension
--- NOTE | 2023-09-18 16:45 | Pharmacy Report ---
Pharmacy PK ABX Note - Date of Service September 18, 2023 - Assessment and Plan Assessment 09/18: repeat random level obtained today as scr increased to 1.80. Dose adjusted accordingly. Will monitor scr trend to determine if further adjustments are needed. POD 1 s/p amputation of left foot second toe, partial amputation of great toe, and tenosynovectomy of third toes, flexor tenotomy third toe and debridement of the third toe diabetic ulcer to the level of muscle. Per ortho note, can d/c abx when inflammatory indices have stabled and will require 7-10 days oral abx upon discharge. Left Foot cx (09/15) is growing MRSA, 09/17 cx growing staph species. 09/17 * Osteomyelitis confirmed by MRI. Plans for amputation of second toe, partial great toe amputationg and debridement of third toe today. * Continues on vanc/zosyn 09/16 68 year old M receiving VANCOMYCIN/ZOSYN for treatment of diabetic foot ulcer with possible osteomyelitis. Blood and left foot culture pending. Plan Vancomycin * Current regimen: 1250 mg IV every 18 hours * Random level obtained 09/18/23 resulted as 19.7 mcg/mL. This is predicted to achieve a supratherapeutic AUC/TESSY * Change to 1000 mg IV every 18 hours, this is predicted to achieve an AUC/TESSY of 549 mg/L.hr. * Will repeat level in the next 24-48 hours if therapy is continued and/or change in patient clinical status Pharmacy will continue to follow and will adjust dose/frequency as necessary. Thank you. Pharmacy has transitioned to AUC monitoring for vancomycin. AUC/TESSY is the preferred PK/PD target and is associated with decreased risk of nephrotoxicity compared to traditional trough targets.
[2023-09-19] MEDS ORDERED: VANCOMYCIN HCL 1,000 MG in SODIUM CHLORIDE 0.9% 250 ML IV SCH
[2023-09-19] MEDS: PIPERACILLIN/TAZOBACTAM 4.5 GM in DEXTROSE 5% MINI-B 100 ML IV SCH ×3 (00:22→16:17)
[2023-09-19 06:42] LABS: BUN Creatinine Ratio 20.9 (10-20); Calcium 8.1 mg/dl (8.6-10.3); Creatinine Clr Calc Pharmacy 38.7 ml/min; Est GFR (African American) 36.7 ml/min; Est GFR (Non-African American) 31.7 ml/min; Potassium 4.6 mmol/L (3.5-5.1)
[2023-09-19] MEDS: DOCUSATE SODIUM 100 MG CAP PO SCH ×2 (08:25→21:06)
[2023-09-19] MEDS: FOLIC ACID 1 MG TAB PO SCH (08:25)
[2023-09-19] MEDS: NORTRIPTYLINE HCL 25 MG CAP PO SCH ×2 (08:25→21:06)
[2023-09-19] MEDS: HYDROXYCHLOROQUINE SULFATE 200 MG TAB PO SCH (08:26)
[2023-09-19] MEDS: ATORVASTATIN 10 MG TAB PO SCH (08:26)
[2023-09-19] MEDS: amLODIPine BESYLATE 5 MG TAB PO SCH (08:26)
[2023-09-19] MEDS: AMMONIUM LACTATE 12% LOTION 225 GM BTL EXT SCH ×2 (08:27→21:04)
[2023-09-19] MEDS: INSULIN ASPART PER UNIT CHARGE SC SCH ×4 (08:31→21:41)
[2023-09-19] MEDS: LANTUS PER UNIT CHARGE SQ SCH ×2 (08:31→21:41)
[2023-09-19] MEDS ORDERED: SODIUM CHLORIDE 0.9% 1,000 ML IV SCH (10:30)
[2023-09-19 11:16] LABS: Appearance Urine Clear (Clear); Bacteria Urine Automated Negative (Negative); Bilirubin Urine Negative (Negative); Blood Urine Negative (Negative); Color Urine Yellow; Epithelial Cell Urine Auto 0-5 /lpf (0-5); Glucose Urine UA 3+ (Negative); Ketones Urine Negative (Negative); Leukocyte Esterase Urine Negative (Negative); Nitrite Urine Negative (Negative); Protein Urine 1+ (Negative); RBC Urine Automated 0-4 /hpf (0-4); Specific Gravity Urine 1.025 (1.000-1.030); Urobilinogen Urine Negative (Negative)
[2023-09-19 11:37] LABS: Creatinine Urine Random 118.1 mg/dl
--- NOTE | 2023-09-19 13:47 | Pharmacy Report ---
Pharmacy PK ABX Note - Date of Service September 19, 2023 - Assessment and Plan Assessment 09/19: No change in cultures. Slight bump in SCr today from 1.8 to 2.06 mg/dL. Will order random level today. 09/18: repeat random level obtained today as scr increased to 1.80. Dose adjust ed accordingly. Will monitor scr trend to determine if further adjustments are needed. POD 1 s/p amputation of left foot second toe, partial amputation of great toe, and tenosynovectomy of third toes, flexor tenotomy third toe and debridement of the third toe diabetic ulcer to the level of muscle. Per ortho note, can d/c abx when inflammatory indices have stabled and will require 7-10 days oral abx upon discharge. Left Foot cx (09/15) is growing MRSA, 09/17 cx growing staph species. 09/17 * Osteomyelitis confirmed by MRI. Plans for amputation of second toe, partial great toe amputation and debridement of third toe today. * Continues on vanc/zosyn 09/16 68 year old M receiving VANCOMYCIN/ZOSYN for treatment of diabetic foot ulcer with possible osteomyelitis. Blood and left foot culture pending. Plan Vancomycin * Current regimen: 1000 mg IV every 18 hours * Random level obtained 09/19/23 resulted as 17.1 mcg/mL. This is predicted to achieve target AUC/TESSY of 400-600 mg/L.hr * Continue 1000 mg IV every 18 hours * Reassess AM renal function Zosyn * 4.5 g IV q8h - dosed appropriately, consider de-escalation today given MRSA growth only Pharmacy will continue to follow and will adjust dose/frequency as necessary. Thank you. Pharmacy has transitioned to AUC monitoring for vancomycin. AUC/TESSY is the preferred PK/PD target and is associated with decreased risk of nephrotoxicity compared to traditional trough targets.
--- NOTE | 2023-09-19 16:57 | Hospitalist Progress Note ---
Date of Service September 19, 2023 Assessment & Plan (1) Diabetic ulcer of left foot associated with diabetes mellitus due to underlying condition, with necrosis of bone: Plan: MRI confirms osteomyelitis of second toe distal phalynx Treated with IV pip-tazo and vancomycin 09/17/23 Left second toe amputation, (2) left great toe partial amputation (3) left third toe incision and debridement to level of muscle 1.5cm x 1.0 cm (4) tenosynovectomy third toe extensor (5) flexomoty toe third toe Surgeon: Jn Martinez, DO recommendations by orthopedics dressing changes, surgical shoe (ordered, not delivered yet), keep pressure off left forefoot, 7 to 10 days oral antibiotics, follow-up in podiatry clinic reviewed cultures - preop and operative cultures growing MRSA to date. Diabetic foot wounds are typically polymicrobial however and this was fairly extensive debridement. -stopped IV abx 09/19, changed to oral augmentin and doxycycline (to cover the MRSA) (2) Type 2 diabetes mellitus with polyneuropathy: Plan: Continue basal bolus insulin -blood glucoses reviewed 09/19 are above goal in 300sx2. increased glargine to 22u bid and tightened CF and CR A1c is 10.9 (3) HTN (hypertension): Plan: Continue amlodipine and lisinopril (4) CVA (cerebral infarction): Plan: continue secondary risk prevention with diabetic, blood pressure control and statin Plan APRIL on CKD stage III Creatinine has been highly variable this admission and previous records 09/18 held lisinopril and gave 1L NS 09/19 Cr up to 2.0, good UOP. continue holding MAYANK for a few weeks until APRIL resolved. 1L Iv NS ordered. Ordered UA, UCr, Grzegorz --> bland sediment. FeNa 0.5% c/w prerenal. Checked PVR by bladder scan, was low. -AM BMP -discharge to nursing home once renal function improving Admission and Anticipated Discharge Date Admission Date: September 18, 2023 Subjective postop L foot pain, throbbing, improved a little today, requests pain medicine Physical Exam 2 Physical Exam: PHYSICAL EXAMINATION Last 24h vital signs reviewed, see documentation in flowsheet exam unchanged 09/19: General: comfortable appearing, no distress HEENT: Normocephalic, atraumatic, pupils round and equal, sclerae anicteric, no conjunctival injection, moist mucus membranes Lungs: Normal respiratory effort. Clear to auscultation bilaterally. No RRW Heart: Regular rate and rhythm, no murmurs. No JVD Abdomen: Soft, nontender, nondistended. Bowel sounds present. Extremities: Warm, dry, well-perfused. Left foot is completely covered in surgical dressing and Mayank wrap. no strikethrough No edema right lower extremity, trace edema left lower extremity above the Mayank wrap to mid casas improved Neuro: Alert and oriented x 4, face symmetric, moves 4 extremities well Psych: Normal affect and behavior Results & Data Results & Data Vital Signs (Past 12 Hours) Vital Signs Temp Pulse Resp BP Pulse Ox O2 Del Method 09/19/23 15:47 36.9 C 71 18 170/89 H 92 Room Air 09/19/23 07:35 36.8 C 74 18 149/71 H 93 Room Air Laboratory Results 09/18/23 05:50 09/19/23 06:04 PG Care Time/CCT Total # of Minutes Spent Total Time Spent with Patient: Total time spent is greater than 50% in coordination of care (as documented) at patient's floor/unit and/or counseling patient: Coding Level of Care Code 22929 SUB INP/OBS CARE 2/35MIN Diagnoses Diabetic ulcer of toe of left foot associated with diabetes mellitus due to underlying condition, with necrosis of bone E08.621; L97.524 Diabetic foot ulcer location: toe Type 2 diabetes mellitus with polyneuropathy E11.42 HTN (hypertension) I10 Hypertension type: unspecified CVA (cerebral infarction) I63.9 (1) Diabetic ulcer of left foot associated with diabetes mellitus due to underlying condition, with necrosis of bone Diabetic foot ulcer location: toe Qualified Code(s): E08.621 - Diabetes mellitus due to underlying condition with foot ulcer; L97.524 - Non-pressure chronic ulcer of other part of left foot with necrosis of bone (3) HTN (hypertension) Hypertension type: unspecified Qualified Code(s): I10 - Essential (primary) hypertension
[2023-09-19] MEDS: DOXYCYCLINE HYCLATE 100 MG CAP PO SCH (21:05)
[2023-09-19] MEDS: AMOXICILLIN/CLAVULANATE 875 MG TAB PO SCH (21:06)
[2023-09-20] MEDS: DOCUSATE SODIUM 100 MG CAP PO SCH (08:20)
[2023-09-20] MEDS: NORTRIPTYLINE HCL 25 MG CAP PO SCH (08:20)
[2023-09-20] MEDS: FOLIC ACID 1 MG TAB PO SCH (08:21)
[2023-09-20] MEDS: ATORVASTATIN 10 MG TAB PO SCH (08:21)
[2023-09-20] MEDS: AMOXICILLIN/CLAVULANATE 875 MG TAB PO SCH ×2 (08:21→16:31)
[2023-09-20] MEDS: amLODIPine BESYLATE 5 MG TAB PO SCH (08:22)
[2023-09-20] MEDS: AMMONIUM LACTATE 12% LOTION 225 GM BTL EXT SCH (08:22)
[2023-09-20] MEDS: HYDROXYCHLOROQUINE SULFATE 200 MG TAB PO SCH (08:22)
[2023-09-20 08:23] VITALS: PULSE 72
[2023-09-20] MEDS: LANTUS PER UNIT CHARGE SQ SCH (08:26)
[2023-09-20] MEDS: INSULIN ASPART PER UNIT CHARGE SC SCH ×3 (08:26→17:07)
[2023-09-20 09:47] LABS: BUN Creatinine Ratio 22.4 (10-20); Calcium 8.6 mg/dl (8.6-10.3); Creatinine Clr Calc Pharmacy 63.8 ml/min; Est GFR (African American) 67.2 ml/min; Potassium 4.5 mmol/L (3.5-5.1)
[2023-09-20] MEDS: DOXYCYCLINE HYCLATE 100 MG CAP PO SCH (11:10)
--- NOTE | 2023-09-20 14:00 | Discharge Summary ---
Date of Service September 20, 2023 Admission HPI Per Admitting Provider The patient is a 68-year-old male who presented to the emergency department for an evaluation of foot swelling. He had foot swelling for a few weeks which slowly has been worsening. He was started on antibiotic at the residential. They were unable to get him into the wound care center so they sent him to the emergency department today. Principal Diagnosis Left diabetic foot ulcer with cellulitis and osteomyelitis Discharge Exam PHYSICAL EXAMINATION Last 24h vital signs reviewed, see documentation in flowsheet exam unchanged 09/20: General: comfortable appearing, no distress HEENT: Normocephalic, atraumatic, pupils round and equal, sclerae anicteric, no conjunctival injection, moist mucus membranes Lungs: Normal respiratory effort. Heart: Abdomen: nondistended. Extremities: Warm, dry, well-perfused. Left foot is completely covered in surgical dressing and Mayank wrap. no strikethrough. dressing cdi No edema right lower extremity, trace edema left lower extremity above the Mayank wrap to mid casas Neuro: Alert and oriented x 4, face symmetric, moves 4 extremities well Psych: Normal affect and behavior Discharge Data Allergies Allergy/AdvReac Type Severity Reaction Status Date / Time No Known Allergies Allergy Verified 08/22/23 10:00 Consultations 09/15/23 11:29 ED Decision to Admit Stat 09/15/23 12:15 Consult Orthopedic Surgery Routine Procedures Performed Operation Date: 09/17/23 07:30 Actual Procedures p (1) Left second toe amputation, (2) left great toe partial amputation (4) tenosynovectomy third toe extensor (5) flexomoty toe third toe(Left) - Jn Martinez DO s (3) left third toe incision and debridement to level of muscle 1.5cm x 1.0 cm(Left) - Jn Martinez DO Ordered Studies 09/15/23 10:07 CT foot LT wo con Stat US venous doppler LE LT Stat 09/15/23 18:23 MRI Foot [MR foot LT wo/w con] Urgent Chest X-Ray 09/15/23 09:52 XR chest 1V portable CLINICAL HISTORY: Sepsis TECHNIQUE: Single frontal radiograph of the chest was obtained. Comparison: Comparison is made to chest radiograph 03/11/2023 FINDINGS: No lines and tubes are seen. The cardiomediastinal silhouette is normal. The lungs are clear. No evidence of pleural effusion or pneumothorax. IMPRESSION: No acute chest disease. ACT 112: Negative or not required by law. Electronically signed by: Dane Colmenares M.D. 09/15/2023 10:[address] 09/15/23 10:07 CT foot LT wo con CLINICAL HISTORY: swelling, infection TECHNIQUE: Multidetector row helical CT of the left foot was performed without intravenous contrast. Coronal and sagittal reformations were obtained. Automated dose lowering techniques and/or adjustment according to patient size were utilized for this examination. CT DOSE: 444.48 mGy.cm Comparison: Comparison is made to CT foot 10/06/2022 FINDINGS: There is focal erosion of the second digit proximal and distal phalanxes. Soft tissue swelling is seen most prominently in the forefoot. IMPRESSION: Findings are concerning for osteomyelitis of the second digit. Cellulitis is seen. ACT 112: Negative or not required by law. Electronically signed by: Dane Colmenares M.D. 09/15/2023 11:02 AM Venous Doppler Study 09/15/23 10:07 US venous doppler LE LT CLINICAL HISTORY: swelling TECHNIQUE: Left lower extremity real-time compression venous ultrasound with Color Doppler imaging. Utilizing real-time ultrasonic imaging multiple real time high-resolution ultrasonic images with compression and noncompression maneuvers of the deep venous system in addition to color doppler imaging were performed from the common femoral vein through the proximal calf veins. COMPARISON: None available at the time of this dictation. FINDINGS/IMPRESSION: Currently there is normal compressibility of the deep venous system from the common femoral vein through the proximal calf veins. Enlarged left groin lymph nodes are seen. ACT 112: Negative or not required by law. Electronically signed by: Dane Colmenares M.D. 09/15/2023 11:47 AM Foot MRI 09/15/23 18:23 Exam(s): MRI LEFT FOOT W/WO Contrast EXAM: MR Left Lower Extremity Without and With Intravenous Contrast, Foot CLINICAL HISTORY: Reason for exam: Assess for extent of osteomyelitis left foot. TECHNIQUE: Multiplanar magnetic resonance images of the left foot without and with intravenous contrast. CONTRAST: 9.2 CC GADAVIST COMPARISON: CT left foot 09/15/2023. FINDINGS: Soft tissue swelling and irregularity overlying the distal phalanx of the second digit consistent with a open wound and cellulitis. Edema and enhancement throughout the underlying middle and distal phalanx of the second digit with cortical loss consistent with osteomyelitis. Mild edema and enhancement noted in the mid to distal proximal phalanx of the second digit. Mild edema and enhancement also noted in the distal phalanx of the first digit. Focal edema in the distal aspect of the first digit proximal phalanx. Moderate generalized subcutaneous soft tissue swelling surrounding the foot consistent with a generalized cellulitis. No focal phlegmon or abscess identified. IMPRESSION: Generalized soft tissue swelling/edema with irregularity overlying the second digit compatible with cellulitis and ulceration overlying the second digit. Edema and enhancement in the middle and distal phalanx of the first digit with cortical loss consistent with osteomyelitis. Mild edema and enhancement is noted in the mid to distal aspect of the proximal phalanx of the second digit as well as in the distal phalanx of the first digit and osteomyelitis cannot be excluded. Electronically signed by: Harsh Carlson M.D. 09/16/23 00:44 AM 09/18/23 05:50 09/20/23 08:50 Hospital Course (1) Diabetic ulcer of left foot associated with diabetes mellitus due to underlying condition, with necrosis of bone: MRI confirms osteomyelitis of second toe distal phalynx Treated with IV pip-tazo and vancomycin 09/17/23 Left second toe amputation, (2) left great toe partial amputation (3) left third toe incision and debridement to level of muscle 1.5cm x 1.0 cm (4) tenosynovectomy third toe extensor (5) flexomoty toe third toe Surgeon: Jn Martinez, DO recommendations by orthopedics daily dressing changes, may walk with surgical shoe with walker or cane, keep pressure off left forefoot, 7 more days oral antibiotics, follow-up in podiatry clinic in 3 weeks reviewed cultures - preop and operative cultures growing MRSA to date. Diabetic foot wounds are typically polymicrobial however and this was fairly extensive debridement. -stopped IV abx 09/19, changed to oral augmentin and doxycycline (to cover the MRSA) - complete 7 more days after discharge (2) Type 2 diabetes mellitus with polyneuropathy: Treated with basal-bolus insulin in the hospital A1c is 10.9 Resume home regimen (3) HTN (hypertension): Continue amlodipine and lisinopril held for APRIL (4) CVA (cerebral infarction): continue secondary risk prevention with diabetic, blood pressure control and statin Plan APRIL on CKD stage III prerenal APRIL, resolved Creatinine has been highly variable this admission and on previous records 09/18 held lisinopril for Cr 1.8 and gave 1L NS 09/19 Cr up to 2.0, good UOP. 1L IV NS given. Ordered UA, UCr, Grzegorz --> bland sediment. FeNa 0.5% c/w prerenal. Checked PVR by bladder scan, was low. -Cr resolved to better than recent baseline, 1.25 on 09/20 -continue holding MAYANK for apx 2 weeks, then resume after healing from APRIL. Recommend BMP in about 2 weeks. Total Time Total Time Spent Total Time Spent (In Minutes): I spent 40 minutes today coordinating care for discharge including reviewing chart notes, vitals, labs, examining and counseling patient, contacting residential staff at [facility], discharge orders and documentation. Discharge Plan Discharge Items [facility] Disposition: [facility] Reason For Visit: OSTEOMYLITIS Discharge Diagnosis: diabetic foot infection Condition on Discharge: Good Activity: Per Instructions section Weightbearing: Left partial Weightbearing Comment: may walk with surgical shoe on left foot. keep pressure off forefoot Non-emergency contact: Primary Care Provider Call non-emergency contact if: you have any medication questions, your symptoms worsen, you have a fever, your wound has increased redness and your wound has increased drainage Follow-up/Referrals: Jn Martinez DO [Surgeon] - (follow up in 3 weeks) [facility] [Primary Care Provider] - Diet: Carb Consistent or DM2 Addtl Attending Provider Instructions: You were treated for left foot infection Wound cultures grew MRSA Your kidney function was mildly worse than your baseline, likely related to infection and surgery. We gave IV fluids and held your lisinopril, Cr was back to your normal level today. -lisinopril is HELD until your kidney function improves -recommend BMP in 2 weeks -if kidney function stable at that time, restart lisinopril Instructions from orthopedics: Daily dry dressing changes left foot. Partial weightbearing with walker or cane on his heel with postoperative shoe. Follow-up with Dr. Martinez 3 weeks postoperative in outpatient clinic. Jn Martinez DO [facility] orthopedic Cable [phone] Pending Studies at Discharge: No Stand-Alone Forms: My [facility] Skilled Items Patient informed of condition?: Yes Discharge Level of Care: Other Communicable Disease: No Discharge Prognosis: Improving Lines: None Urinary Catheter: No Medications and DC Order Prescriptions: New acetaminophen [Tylenol Extra Strength] 500 mg Tablet 1,000 mg PO TID PRN (Reason: pain) Qty: 0 0RF oxycodone 5 mg Tablet 5 - 10 mg PO Q6H PRN (Reason: pain) 3 Days Qty: 0 0RF amoxicillin-pot clavulanate 875-125 mg Tablet 1 tab PO BIDM 7 Days Qty: 14 0RF doxycycline hyclate 100 mg Capsule 100 mg PO BID@1000,2200 7 Days Qty: 0 0RF Continued nortriptyline 25 mg Capsule 25 mg PO BID folic acid 1 mg Tablet 1 mg PO DAILY hydroxychloroquine 200 mg Tablet 200 mg PO DAILY docusate sodium 100 mg Tablet 100 mg PO BID Enbrel 50 mg/mL (1 mL) Syringe 50 mg SUBCUT WK Rx Instructions: WEDNESDAYS glucagon HCl [Glucagon (HCl) Emergency Kit] 1 mg Recon Soln 1 mg subcut DIRECTED PRN (Reason: Hypoglycemia) atorvastatin 10 mg Tablet 10 mg PO DAILY amlodipine 10 mg Tablet 10 mg PO DAILY insulin glargine 100 unit/mL Solution See Rx Instructions .ROUTE .COMPLEX Rx Instructions: TAKES 26 UNITS QAM AND THEN 12 UNITS QPM ammonium lactate 12 % Lotion 1 applic TOPICAL BID Novolin R Regular U100 Insulin 100 unit/mL Solution 1 sliding scale dose SUBCUT BID Rx Instructions: BSG 200-250=2 UNITS, 251-300=4 UNITS, 301-350=6 UNITS, 351-400=8 UNITS, 401- 450=10 UNITS, 451-500=12 UNITS, > 500=CALL TO MD. glucose 4 gram Tablet,Chewable 4 g PO DIRECTED PRN (Reason: HYPOGLYCLEMIA) albuterol sulfate 90 mcg/actuation Hfa Aerosol Inhaler 2 puff INHALATION QID PRN (Reason: Shortness Of Breath) Farxiga 10 mg Tablet 10 mg PO DAILY cyanocobalamin (vitamin B-12) [Vitamin B-12] 1,000 mcg Tablet 1,000 mcg PO DAILY Held lisinopril 40 mg tablet 40 mg PO DAILY Qty: 90 0RF Hold Instructions: Resume on 10/04/23. Admission Data Admit Date/Time: 09/18/23 08:43 Attending Provider: Maile Carolina Admit Provider: Maile Carolina Primary Care Provider: Luc BACA Other Providers: George Jenkins; Jn Martinez Coding Level of Care Code 80170 INP/OBS DISCH >30 MIN Diagnoses Diabetic ulcer of toe of left foot associated with diabetes mellitus due to underlying condition, with necrosis of bone E08.621; L97.524 Diabetic foot ulcer location: toe Type 2 diabetes mellitus with polyneuropathy E11.42 HTN (hypertension) I10 Hypertension type: unspecified CVA (cerebral infarction) I63.9
[2023-09-20 14:23] VITALS: BP 170/84; RESP 16; TEMP 98.1; O2SAT 97
== END 2023-09-20 18:29 | DRG 617 ==
LOC: 3E 09:24 → ED 09:24 → SUATTDRO 12:15 → 3E 14:59
DX: M24.59 Contracture, other specified joint; N18.30 Chronic kidney disease, stage 3 unspecified; Z86.73 Personal history of transient ischemic attack (TIA), and cerebral infarction without residual deficits; E11.42 Type 2 diabetes mellitus with diabetic polyneuropathy; E11.621 Type 2 diabetes mellitus with foot ulcer; L97.514 Non-pressure chronic ulcer of other part of right foot with necrosis of bone; Z79.4 Long term (current) use of insulin; I12.9 Hypertensive chronic kidney disease with stage 1 through stage 4 chronic kidney disease, or unspecified chronic kidney disease; N17.9 Acute kidney failure, unspecified; M86.8X7 Other osteomyelitis, ankle and foot; Z87.891 Personal history of nicotine dependence; E11.52 Type 2 diabetes mellitus with diabetic peripheral angiopathy with gangrene; M65.872 Other synovitis and tenosynovitis, left ankle and foot; E11.69 Type 2 diabetes mellitus with other specified complication; E11.22 Type 2 diabetes mellitus with diabetic chronic kidney disease

== ENCOUNTER 2024-02-10 17:38 | Inpatient (IN) ==
--- NOTE | 2024-02-10 18:03 | Emergency Department Note ---
Impression & Plan Syncope, Orthostatic hypotension, APRIL (acute kidney injury), Head injury ED Provider Note NAME: DEBORAH [id number] JOSUE AGE: 68 SEX: M : 1955 ARRIVES VIA: Ambulance INFORMANT: Patient, ED PROVIDER(S): Benito Crowell DO CHIEF COMPLAINT: Syncope HPI: The patient is a 68-year-old male who presented to the emergency department for an evaluation of syncope. The patient had an episode on where he fell striking his head. Apparently patient fell multiple times on of this week. He admitted that he did have a loss of consciousness although it is unclear if the patient had a loss of consciousness from the fall or if he had a syncopal episode. The patient went to the [facility] initially and was cleared. He went to the [facility] today because he was still feeling dizzy and lightheaded upon standing and was sent to the emergency department for further evaluation. The patient denies having any chest pain or difficulty breathing. He denies having any nausea or vomiting. He denies having any neck pain. The patient denies having any black or tarry stools. The patient states has been compliant with his outpatient medications. ROS: See above HPI for pertinent positives & negatives. A total of 10 systems reviewed and were otherwise negative. PAST MEDICAL HISTORY: See Below PAST SURGICAL HISTORY: See Below FAMILY HISTORY: See Below SOCIAL HISTORY: See Below HOME MEDICATIONS: See Below ALLERGIES: See Below VITALS: See Below PHYSICAL EXAMINATION: GENERAL: Patient is awake alert in no acute distress patient is resting comfortably and showing no signs of anxiety EYES: The conjunctivae are clear. The pupils are round and reactive. EARS, NOSE, MOUTH AND THROAT: The nose is without any evidence of any deformity. Mucous membranes are moist. Tongue is midline. NECK: The neck is nontender and supple. RESPIRATORY: Normal respiratory effort is noted there is no evidence of wheezing rhonchi or rales CARDIOVASCULAR: Regular rate and rhythm noted there no murmurs rubs or gallops normal S1 normal S2. GASTROINTESTINAL: The abdomen is soft. Abdomen is nontender. MUSCULOSKELETAL/EXTREMITIES: There is no evidence of gross deformity full range of motion is noted in the hips and shoulders. SKIN: There is no obvious evidence of any rash. There are no petechiae, pallor or cyanosis noted. NEUROLOGIC: Patient is awake alert and oriented x3 strength is symmetric patellar reflexes are 2+ bilaterally MEDICAL DECISION MAKING: The patient is a 68-year-old male who presented to the emergency department for an evaluation of syncope and head injury. The patient was getting dizzy upon standing. Orthostatic vital signs did show a drop in his blood pressure upon standing. He was found to have an elevated creatinine compared to his baseline. I discussed the patient's laboratory and radiographic studies with him. He did strike his head on when he fell so further radiographic studies were obtained to ensure there is no intracranial or cervical spine trauma. The patient was treated with IV fluids in the emergency department. He symptomatically felt better but another set of orthostatic vitals were obtained and the patient still dropped his blood pressure and became symptomatic. For this reason I will discuss his condition with the on-call [facility]. I do feel the patient would be a better candidate for inpatient management. Triage Nursing notes reviewed. Prior medical records reviewed Vital Signs: reviewed and remarkable for intermittent hypotension. Differential diagnosis: Vasovagal event, dehydration, infection, hypoglycemia, electrolyte abnormalities, cardiac sources, intracerebral event, pulmonary embolism, seizure, toxicologic, neurologic, as well as other pathologies. ER treatment provided: See below Diagnostics interpreted by me: ECG: EKG was obtained in the emergency department. My interpretation is sinus rhythm at 71 bpm. First-degree AV block was noted. There is no ectopy. Nonspecific T wave abnormalities were noted in the high lateral leads. This was compared to a tracing from September 15, 2023. No changes were noted. Cardiac Monitoring: An order was placed for continuous cardiac monitoring. The monitor shows a rate of 72 bpm with sinus rhythm. Laboratory studies: As stated above and show below. Imaging studies: See below. Radiographic imaging was reviewed by myself Consultation(s): I notified the [facility]ist, Dr. Sevilla. He will evaluate the patient in the emergency department. 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, with necrosis of bone Cellulitis of foot, left (Acute) Type 2 diabetes mellitus Right lower lobe pneumonia (Acute) SOB (shortness of breath) (Acute) Acute hyperkalemia (Acute) Orthostatic hypotension Recurrent syncope Surgical history unknown HTN (hypertension) (Chronic) Diabetes (Chronic) Hyperlipidemia (Chronic) CVA (cerebral infarction) (Acute 2016) Colitis Syncope (Acute 2016) Medical History Diabetic foot ulcer CKD (chronic kidney disease) APRIL (acute kidney injury) Elevated troponin HHNC (hyperglycemic hyperosmolar nonketotic coma) Orthostatic hypotension (2016) Anemia Surgical History S/P craniotomy Family History Other Family history non-contributory Social History Smoking Status: Never smoker Tobacco Type: Cigarettes Age Started Using Tobacco: 13; packs per day: 0.5; Second Hand Exposure: No; Do You Dip or Chew Tobacco: No; Hx Alcohol Use: No Hx Substance Use: No Preferred Language: Kyrgyz Communication Ability: Effective Statistical Modeler Required: No Beliefs That Will Affect Care: None marital status: Current Living Situation: Other Current Living Situation Comment: [employer] [facility] current occupational status: unemployed Feels Safe at Home: Yes Assistive Devices: None Allergies Allergies Allergy/AdvReac Type Severity Reaction Status Date / Time No Known Allergies Allergy Verified 02/10/24 17:57 Home Meds Home Medications Medication Instructions Recorded Confirmed docusate sodium 100 mg tablet 100 mg PO BID PRN Constipation 10/18/20 02/10/24 etanercept 50 mg/mL (1 mL) 50 mg subcut WK 10/18/20 02/10/24 subcutaneous syringe (Enbrel) folic acid 1 mg tablet 1 mg PO DAILY 10/18/20 02/10/24 hydroxychloroquine 200 mg tablet 200 mg PO DAILY 10/18/20 02/10/24 nortriptyline 25 mg capsule 25 mg PO BID 10/18/20 02/10/24 amlodipine 10 mg tablet 10 mg PO DAILY 10/05/22 02/10/24 ammonium lactate 12 % lotion 1 applic topical BID 10/05/22 02/10/24 atorvastatin 10 mg tablet 10 mg PO DAILY 10/05/22 02/10/24 albuterol sulfate 90 mcg/actuation 2 puff inhalation QID PRN 03/12/23 02/10/24 aerosol inhaler Shortness Of Breath glucose 4 gram chewable tablet 4 g PO DIRECTED PRN 03/12/23 02/10/24 HYPOGLYCLEMIA cyanocobalamin (vitamin B-12) 500 500 mcg PO DAILY 02/10/24 02/10/24 mcg tablet hydralazine 25 mg tablet 25 mg PO TID PRN Hypertension 02/10/24 02/10/24 insulin NPH isoph U-100 human 100 18 unit subcut QPM 02/10/24 02/10/24 unit/mL (3 mL) subcutaneous pen (Novolin N FlexPen) insulin NPH isoph U-100 human 100 20 unit subcut QAM 02/10/24 02/10/24 unit/mL (3 mL) subcutaneous pen (Novolin N FlexPen) insulin regular human 100 unit/mL 0 sliding scale dose subcut . 02/10/24 02/10/24 (3 mL) subcutaneous pen (Novolin R NEEDED PRN Hyperglycemia FlexPen) insulin regular human 100 unit/mL 10 unit subcut BIDWMEAL 02/10/24 02/10/24 (3 mL) subcutaneous pen (Novolin R FlexPen) Results & Data (ED) Vital Signs Vital Signs - 24 hr 02/10/24 17:48 02/10/24 17:55 02/10/24 18:28 Temperature 36.5 C 36.5 C Temperature Source Oral Oral Pulse Rate - Lying Pulse Rate - Sitting Pulse Rate - Standing Pulse Rate 69 72 Pulse Rate [Finger] 71 Pulse Rhythm Regular Pulse Rhythm [Finger] Regular Pulse Strength Normal Pulse Strength [Finger] Normal Respiratory Rate 20 20 Respiratory Effort / Characteristics Non-Labored Spontaneous Non-Labored Spontaneous Respiratory Depth Normal Normal Blood Pressure - Lying Blood Pressure - Sitting Blood Pressure- Standing Blood Pressure 184/97 H Blood Pressure [Right Arm] 184/97 H Blood Pressure Mean 126 Blood Pressure Mean [Right Arm] 126 Blood Pressure Position Sitting Blood Pressure Position [Right Arm] Sitting Pulse Oximetry 100 99 Oxygen Delivery Method Room Air Room Air Sepsis Recent Fever Within 48 Hours No Sepsis New/Unexplained Change in Mental Status N/A Sepsis Action Taken by Nursing No Action Required 02/10/24 20:11 Temperature Temperature Source Pulse Rate - Lying 68 Pulse Rate - Sitting 68 Pulse Rate - Standing 70 Pulse Rate Pulse Rate [Finger] Pulse Rhythm Pulse Rhythm [Finger] Pulse Strength Pulse Strength [Finger] Respiratory Rate Respiratory Effort / Characteristics Respiratory Depth Blood Pressure - Lying 164/86 H Blood Pressure - Sitting 148/88 H Blood Pressure- Standing 99/69 L Blood Pressure Blood Pressure [Right Arm] Blood Pressure Mean Blood Pressure Mean [Right Arm] Blood Pressure Position Blood Pressure Position [Right Arm] Pulse Oximetry Oxygen Delivery Method Sepsis Recent Fever Within 48 Hours Sepsis New/Unexplained Change in Mental Status Sepsis Action Taken by Jail Medications Current Medication List: was personally reviewed by me Laboratory Data Attestation: I reviewed the patient's lab results. 02/10/24 17:52 02/10/24 17:52 Lab Results 02/10/24 02/10/24 Range/Units 17:52 19:20 WBC 6.78 (4.8-10.8) K/ul RBC 4.20 L (4.70-6.10) M/uL Hgb 11.9 L (14.0-18.0) g/dl Hct 36.2 L (42.0-52.0) % MCV 86.2 (80.0-100.0) fL MCH 28.3 (25.0-34.0) pg MCHC 32.9 (32.0-36.0) g/dL RDW Std Deviation 40.4 (36.4-46.3) fL RDW Coeff of Vidal 12.9 (11.5-14.5) % Plt Count 271 (130-400) K/uL MPV 10.4 (9.4-12.4) fL Immature Gran % (Auto) 0.3 % Neut % (Auto) 48.2 % Lymph % (Auto) 27.6 % [place] % (Auto) 16.5 % Eos % (Auto) 6.5 % Baso % (Auto) 0.9 % Neut # (Auto) 3.27 (1.40-6.50) K/uL Lymph # (Auto) 1.87 (1.20-3.40) K/uL [place] # (Auto) 1.12 H (0.11-0.59) K/uL Eos # (Auto) 0.44 (0.00-0.50) K/uL Baso # (Auto) 0.06 (0.00-0.20) K/uL Immature Gran # (Auto) 0.02 (0.01-0.20) K/uL PT 10.9 (9.0-12.0) Seconds INR 1.0 (0.9-1.1) APTT 26 (21-31) Seconds PTT Ratio 1.0 Sodium 132 L (136-145) mmol/L Potassium 4.4 (3.5-5.1) mmol/L Chloride 98 (98-107) mmol/L Carbon Dioxide 28 (21-32) mmol/L Anion Gap 6 (3-11) BUN 49 H (6-23) mg/dl Creatinine 2.60 H (0.6-1.4) mg/dl Est Cr Clr Drug Dosing 30.7 ml/min Est GFR ( Amer) 27.7 ml/min Est GFR (Non-Af Amer) 23.9 ml/min BUN/Creatinine Ratio 18.8 (10-20) Glucose 135 H (70-99(Fasting)) mg/dl Calcium 9.2 (8.6-10.3) mg/dl Magnesium 2.0 (1.7-2.4) mg/dl Total Bilirubin 0.5 (0.2-1.0) mg/dl AST 26 (13-39) U/L ALT 20 (7-52) U/L Alkaline Phosphatase 104 (34-104) U/L Total Creatine Kinase 183 (30-223) U/L Troponin I High Sens 9.3 (0-20) pg/ml Total Protein 8.3 (6.0-8.3) gm/dl Albumin 3.9 (3.4-5.0) gm/dl Globulin 4.4 H (2.5-4.0) gm/dl Albumin/Globulin Ratio 0.9 (0.9-2) Lipase 24 (11-82) U/L TSH 3.452 (0.300-4.500) uIu/ml Urine Color Yellow Urine Appearance Clear (Clear) Urine pH 5.5 (4.5-7.5) Ur Specific [place] 1.013 (1.000-1.030) Urine Protein 2+ H (Negative) Urine Glucose (UA) 2+ H (Negative) Urine Ketones Negative (Negative) Urine Blood Negative (Negative) Urine Nitrite Negative (Negative) Urine Bilirubin Negative (Negative) Urine Urobilinogen Negative (Negative) Ur Leukocyte Esterase Negative (Negative) Urine WBC (Auto) 0-5 (0-5) /hpf Urine RBC (Auto) 0-2 (0-2) /hpf U Hyaline Cast (Auto) 0-2 (0-2) /lpf U Epithel Cells (Auto) 0-2 (0-2) /hpf Urine Bacteria (Auto) None Seen (None Seen) Administered Medications Sodium Chloride (Nss) 1,000 mls @ 999 mls/hr IV .Q1H1M ONE Stop: 02/10/24 21:13 Last Admin: 02/10/24 20:16 Dose: 999 mls/hr Documented By: NALLELY Discontinued Medications Sodium Chloride (Nss) 1,000 mls @ 999 mls/hr IV .Q1H1M REINA Stop: 02/10/24 19:00 Last Infusion: 02/10/24 19:33 Dose: Infused Documented By: Admin: 02/10/24 18:27 Dose: 999 mls/hr Documented By: JUNIOR Imaging Data Attestation: I personally reviewed and interpreted this imaging study as follows: My Impression: CT of the brain was obtained in the emergency department. There was no intracranial hemorrhage or mass effect noted, final report below. 1 view chest x-ray was obtained in the emergency department. My interpretation is no free air or definite infiltrate, final report below. Radiologist's Impression: Cervical Spine CT 02/10/24 17:57 CT cervical spine wo con CT DOSE: 1178.49 mGy.cm CLINICAL HISTORY: 68 years-old Male with fall. Acute head and neck pain status post fall COMPARISON: Head CT of same day, CT cervical spine 03/12/2023 TECHNIQUE: Multiple axial CT images of the cervical spine were obtained without contrast. A dose lowering technique was utilized adhering to the principles of ALARA. FINDINGS: Multilevel degenerative changes with reversal of the normal cervical lordosis, unchanged. Demineralized appearance of the bones. No acute fracture or subluxation. The cervical soft tissues appear unremarkable. Asymmetric soft tissue thickening with redundancy of the left true vocal fold. The visualized lung apices appear clear. IMPRESSION: 1. No acute cervical spine fracture or subluxation. 2. Incidental note is made of asymmetric thickening and redundancy of the left vocal fold. Nonemergent ENT consult with direct visualization may be considered if of further clinical concern. ACT 112: Negative or not required by law. The above report was generated using voice recognition software. It may contain grammatical, syntax or spelling errors. Electronically signed by: Ayaz Nichols M.D. 02/10/2024 8:00 PM Chest X-Ray 02/10/24 17:57 XR chest 1V portable HISTORY: 68 years-old Male fall acute chest trauma status post fall COMPARISON: 09/15/2023 TECHNIQUE: AP view of the chest FINDINGS: Cardiomediastinal and hilar silhouettes are unchanged. No pneumothorax, pleural effusion or airspace consolidation. The bones appear grossly intact. IMPRESSION: No acute process. ACT 112: Negative or not required by law. The above report was generated using voice recognition software. It may contain grammatical, syntax or spelling errors. Electronically signed by: Ayaz Nichols M.D. 02/10/2024 6:[address] 02/10/24 17:57 CT head/brain wo con CLINICAL HISTORY: 68 years-old Male with syncope. Acute syncope TECHNIQUE: Multiple axial CT images of the head were obtained without contrast. A dose lowering technique was utilized adhering to the principles of ALARA. COMPARISON: CT cervical spine of same day, 03/12/2023 FINDINGS: A focus of left frontal encephalomalacia is consistent with a remote insult. There is age-related involutional change noting mild subcortical and periventricular microangiopathic disease. There is no hemorrhage, mass effect, or evidence of acute territorial ischemia by CT criteria. Chronic lacunar infarcts are noted in the left basal ganglia and the right cerebellar hemisphere. Flores-white matter differentiation is preserved. No extra-axial fluid collection is seen. Postoperative changes of prior left-sided craniotomy. The paranasal sinuses, mastoid air cells, and middle ear cavities are clear. IMPRESSION: Chronic findings as above without acute intracranial abnormality. ACT 112: Negative or not required by law. The above report was generated using voice recognition software. It may contain grammatical, syntax or spelling errors. Electronically signed by: Ayaz Nichols M.D. 02/10/2024 8:00 PM Discharge Plan Visit Data Chief Complaint: Dizziness ED Provider: Benito Crowell Discharge Problem: Syncope, Orthostatic hypotension, APRIL (acute kidney injury), Head injury Patient Disposition: Being Evaluated by Hospitalist Forms Stand Alone Forms: My [facility] Prescriptions Prescriptions: No Action nortriptyline 25 mg Capsule 25 mg PO BID folic acid 1 mg Tablet 1 mg PO DAILY hydroxychloroquine 200 mg Tablet 200 mg PO DAILY docusate sodium 100 mg Tablet 100 mg PO BID PRN (Reason: Constipation) Enbrel 50 mg/mL (1 mL) Syringe 50 mg SUBCUT WK Rx Instructions: WEDNESDAYS atorvastatin 10 mg Tablet 10 mg PO DAILY amlodipine 10 mg Tablet 10 mg PO DAILY Rx Instructions: HOLD IF B/P IS <120/80 ammonium lactate 12 % Lotion 1 applic TOPICAL BID glucose 4 gram Tablet,Chewable 4 g PO DIRECTED PRN (Reason: HYPOGLYCLEMIA) albuterol sulfate 90 mcg/actuation Hfa Aerosol Inhaler 2 puff INHALATION QID PRN (Reason: Shortness Of Breath) hydralazine 25 mg Tablet 25 mg PO TID PRN (Reason: Hypertension) Novolin N FlexPen 100 unit/mL (3 mL) Insulin Pen 18 unit SUBCUT QPM Novolin N FlexPen 100 unit/mL (3 mL) Insulin Pen 20 unit SUBCUT QAM Novolin R FlexPen 100 unit/mL (3 mL) Insulin Pen 0 sliding scale dose SUBCUT . NEEDED PRN (Reason: Hyperglycemia) cyanocobalamin (vitamin B-12) 500 mcg Tablet 500 mcg PO DAILY Novolin R FlexPen 100 unit/mL (3 mL) Insulin Pen 10 unit SUBCUT BIDWMEAL Referrals Referrals: Jn Martinez DO [Surgeon] - Discharge Problem: Syncope Qualifiers: Syncope type: unspecified Qualified Code(s): R55 - Syncope and collapse Head injury Qualifiers: Encounter type: initial encounter Qualified Code(s): S09.90XA - Unspecified injury of head, initial encounter
[2024-02-10 18:18] LABS: Basophils # (auto) 0.06 K/uL (0.00-0.20); Basophils % (auto) 0.9 %; Eosinophils # (auto) 0.44 K/uL (0.00-0.50); Eosinophils % (auto) 6.5 %; Hematocrit (blood only) 36.2 % (42.0-52.0); Hemoglobin 11.9 g/dl (14.0-18.0); Immature Granulocytes # (auto) 0.02 K/uL (0.01-0.20); Immature Granulocytes % (auto) 0.3 %; Lymphocytes # (auto) 1.87 K/uL (1.20-3.40); Lymphocytes % (auto) 27.6 %; Mean Corpuscular Hemoglobin 28.3 pg (25.0-34.0); Mean Corpuscular Hgb Conc 32.9 g/dL (32.0-36.0); Mean Corpuscular Volume 86.2 fL (80.0-100.0); Mean Platelet Volume 10.4 fL (9.4-12.4); Monocytes # (auto) 1.12 K/uL (0.11-0.59); Monocytes % (auto) 16.5 %; Neutrophils # (auto) 3.27 K/uL (1.40-6.50); Neutrophils % (auto) 48.2 %; Platelet Count 271 K/uL (130-400); RDW Coefficient of Variation 12.9 % (11.5-14.5); RDW Standard Deviation 40.4 fL (36.4-46.3); White Blood Count 6.78 K/ul (4.8-10.8)
--- NOTE | 2024-02-10 18:20 | XRay Report ---
XR chest 1V portable HISTORY: 68 years-old Male fall acute chest trauma status post fall COMPARISON: 09/15/2023 TECHNIQUE: AP view of the chest FINDINGS: Cardiomediastinal and hilar silhouettes are unchanged. No pneumothorax, pleural effusion or airspace consolidation. The bones appear grossly intact. IMPRESSION: No acute process. ACT 112: Negative or not required by law. The above report was generated using voice recognition software. It may contain grammatical, syntax o r spelling errors. Electronically signed by: Ayaz Nichols M.D. 02/10/2024 6:18 PM
[2024-02-10] MEDS: SODIUM CHLORIDE 0.9% 1,000 ML IV SCH (18:27)
[2024-02-10 18:37] LABS: Albumin Globulin Ratio 0.9 (0.9-2); Albumin Level 3.9 gm/dl (3.4-5.0); BUN Creatinine Ratio 18.8 (10-20); Bilirubin,Total 0.5 mg/dl (0.2-1.0); Calcium 9.2 mg/dl (8.6-10.3); Creatinine Clr Calc Pharmacy 30.7 ml/min; Est GFR (African American) 27.7 ml/min; Est GFR (Non-African American) 23.9 ml/min; Globulin 4.4 gm/dl (2.5-4.0); Potassium 4.4 mmol/L (3.5-5.1); Total Protein 8.3 gm/dl (6.0-8.3)
[2024-02-10 18:44] LABS: Troponin I High Sensitivity 9.3 pg/ml (0-20)
[2024-02-10 18:52] LABS: Partial Thromboplastin Time 26 Seconds (21-31); Prothrombin Time 10.9 Seconds (9.0-12.0)
[2024-02-10 18:53] LABS: Thyroid Stimulating Hormone 3.452 uIu/ml (0.300-4.500)
[2024-02-10 19:36] LABS: Appearance Urine Clear (Clear); Bacteria Urine Automated None Seen (None Seen); Bilirubin Urine Negative (Negative); Blood Urine Negative (Negative); Cast Urine Automated 0-2 /lpf (0-2); Color Urine Yellow; Epithelial Cell Urine Auto 0-2 /hpf (0-2); Glucose Urine UA 2+ (Negative); Ketones Urine Negative (Negative); Leukocyte Esterase Urine Negative (Negative); Nitrite Urine Negative (Negative); Protein Urine 2+ (Negative); RBC Urine Automated 0-2 /hpf (0-2); Specific Gravity Urine 1.013 (1.000-1.030); Urobilinogen Urine Negative (Negative); WBC Urine Automated 0-5 /hpf (0-5); pH Urine 5.5 (4.5-7.5)
--- NOTE | 2024-02-10 20:02 | CT Scan Report ---
CT cervical spine wo con CT DOSE: 1178.49 mGy.cm CLINICAL HISTORY: 68 years-old Male with fall. Acute head and neck pain status post fall COMPARISON: Head CT of same day, CT cervical spine 03/12/2023 TECHNIQUE: Multiple axial CT images of the cervical spine were obtained without contrast. A dose low ering technique was utilized adhering to the principles of ALARA. FINDINGS: Multilevel degenerative changes with reversal of the normal cervical lordosis, unchanged. D emineralized appearance of the bones. No acute fracture or subluxation. The cervical soft tissues jeffrey ear unremarkable. Asymmetric soft tissue thickening with redundancy of the left true vocal fold. The visualized lung apices appear clear. IMPRESSION: 1. No acute cervical spine fracture or subluxation. 2. Incidental note is made of asymmetric thickening and redundancy of the left vocal fold. Nonemergen t ENT consult with direct visualization may be considered if of further clinical concern. ACT 112: Negative or not required by law. The above report was generated using voice recognition software. It may contain grammatical, syntax o r spelling errors. Electronically signed by: Ayaz Nichols M.D. 02/10/2024 8:00 PM
--- NOTE | 2024-02-10 20:02 | CT Scan Report ---
CT head/brain wo con CLINICAL HISTORY: 68 years-old Male with syncope. Acute syncope TECHNIQUE: Multiple axial CT images of the head were obtained without contrast. A dose lowering tech nique was utilized adhering to the principles of ALARA. COMPARISON: CT cervical spine of same day, 03/12/2023 FINDINGS: A focus of left frontal encephalomalacia is consistent with a remote insult. There is age-related inv olutional change noting mild subcortical and periventricular microangiopathic disease. There is no he morrhage, mass effect, or evidence of acute territorial ischemia by CT criteria. Chronic lacunar infa rcts are noted in the left basal ganglia and the right cerebellar hemisphere. Flores-white matter diffe rentiation is preserved. No extra-axial fluid collection is seen. Postoperative changes of prior left-sided craniotomy. The paranasal sinuses, mastoid air cells, and m iddle ear cavities are clear. IMPRESSION: Chronic findings as above without acute intracranial abnormality. ACT 112: Negative or not required by law. The above report was generated using voice recognition software. It may contain grammatical, syntax o r spelling errors. Electronically signed by: Ayaz Nichols M.D. 02/10/2024 8:00 PM
[2024-02-10] MEDS: SODIUM CHLORIDE 0.9% 1,000 ML IV ONE (20:16)
--- NOTE | 2024-02-10 21:26 | History & Physical Report ---
Date of Service February 10, 2024 Assessment & Plan (1) APRIL (acute kidney injury): Plan: -Admit to PCU on tele -Currently hypertensive with systolics in the low 200's but otherwise stable and asymptomatic at rest -Presented to the ED with multiple falls due to dizziness over the past 48 hours -Was [facility] to [facility] and on arrival here -Noted to have a Cr of 2.6 today, baseline is near 1.2 -Most likely due to over diuresis at the [facility] with recent LE swelling last week -No sign of infection on UA -Will obtain Renal US to monitor for obstruction -S/P 2L NSS in the ED -Will give LR at 80 mL/hr x 1 bag overnight -Avoid nephrotoxic agents -HH/DMII diet -BL SCD's for DVT PPX -AM CBC, CMP, mag, PT/INR (2) Orthostatic hypotension: Plan: -Noted to have positive orthostatic vitals at [facility] and on arrival -Likely due to dehydration from recent diuresis -Fall precautions -Continue IV hydration overnight -Would repat orthostatic vitals prior to discharge (3) Vocal cord anomaly: Plan: -Ct of the cervical spine noted asymmetric thickening and redundancy of the left vocal fold. -Recommends no-emergent ENT consult if clinical concern -No recent complaints per patient -Would recommend touching base with ENT tomorrow to see if full consult is warranted at this time -Continue aspiration precautions with mincedmoist diet for now (4) Dizziness: Plan: -Was occurring with positional changes -Denies recent dizziness at rest -Likely due to orthostatic hypotension -Non-focal neurologic exam -CT of the head/brain wo con was negative for acute findings -Fall precautions, PT/OT consults ordered (5) Type 2 diabetes mellitus: Plan: -Monitor BSG ACHS, goal is 110-160 for now -Will be conservative with management overnight due to APRIL -Start 5 units lantus BID, CF 50, and CR of 15 -HH/DMII diet -Adjust regimen as needed (6) CVA (cerebral infarction): Plan: -Continue statin (7) Rheumatoid arthritis: Plan: -Can continue Hydroxychloroquine as he is without signs of infection (8) HTN (hypertension): Plan: -Patient now significantly hypertensive -Will give a dose of his prn 25 mg PO hydralzine now -Can plan to resume home amlodipine tomorrow if stable Plan The patient was discussed with Dr. Mancera at the time of the admission History of Present Illness Chief Complaint: Dizziness, multiple falls Primary Care Provider: PHUONG Ashley is a 68 year old male inmate of [facility] with a PMH significant for RA (on hydroxychloroquine and Enbrel), HTN, DMII with previous right diabetic toe infections, previous CVA, and hyperlipidemia who presented to the [facility] ED via EMS on 02/10/24 with complaints of dizziness and multiple falls over the past week. He was noted to be hypertensive on arrival at 184/97 but was otherwise stable. Labs were significant for a cr of 2.60 (baseline is near 1.2), BUN of 49, sodium of 132, UA with 2+ protein and glucose but otherwise WNL. CT of the head/brain wo con was read as " Chronic findings as above without acute intracranial abnormality.". Chest xray was read as negative for acute findings. CT of the cervical spine wo con was read as "1. No acute cervical spine fracture or subluxation. 2. Incidental note is made of asymmetric thickening and redundancy of the left vocal fold. Nonemergent ENT consult with direct visualization may be considered if of further clinical concern.". Prior to admission the patient was given 2L NSS. At the time of the exam the patient was sitting in bed in no acute distress. He states that he started to develop significant lightheadedness/dizziness with positional changes on 02/08/24. He had 3 falls on 02/07, all from ground level due to his symptoms. He did hit his head off his toilet once and thinks he lost consciousness momentarily. Denies changes in vision, hearing, taste, smell, focal weakness, paresthesias, chest pain, SOB, abd pain, nausea, vomiting, diarrhea. When asking about recent LE swelling he states that his legs were swollen last week. When asked, he states that he [facility] for this over the past week. He is currently asymptomatic at rest. Nursing staff reports that the patient was significantly orthostatic at [facility] and on arrival. His orthostasis has improved after IV fluids in the ED. Please refer to Dr. Mancera's attestation for any changes to the treatment plan Allergies Allergy/AdvReac Type Severity Reaction Status Date / Time No Known Allergies Allergy Verified 02/10/24 17:57 Home Medications Medication Instructions Recorded Confirmed Type docusate sodium 100 mg tablet 100 mg PO BID PRN Constipation 10/18/20 02/10/24 History etanercept 50 mg/mL (1 mL) 50 mg subcut WK 10/18/20 02/10/24 History subcutaneous syringe (Enbrel) folic acid 1 mg tablet 1 mg PO DAILY 10/18/20 02/10/24 History hydroxychloroquine 200 mg tablet 200 mg PO DAILY 10/18/20 02/10/24 History nortriptyline 25 mg capsule 25 mg PO BID 10/18/20 02/10/24 History amlodipine 10 mg tablet 10 mg PO DAILY 10/05/22 02/10/24 History ammonium lactate 12 % lotion 1 applic topical BID 10/05/22 02/10/24 History atorvastatin 10 mg tablet 10 mg PO DAILY 10/05/22 02/10/24 History albuterol sulfate 90 mcg/actuation 2 puff inhalation QID PRN 03/12/23 02/10/24 History aerosol inhaler Shortness Of Breath glucose 4 gram chewable tablet 4 g PO DIRECTED PRN 03/12/23 02/10/24 History HYPOGLYCLEMIA cyanocobalamin (vitamin B-12) 500 500 mcg PO DAILY 02/10/24 02/10/24 History mcg tablet hydralazine 25 mg tablet 25 mg PO TID PRN Hypertension 02/10/24 02/10/24 History insulin NPH isoph U-100 human 100 18 unit subcut QPM 02/10/24 02/10/24 History unit/mL (3 mL) subcutaneous pen (Novolin N FlexPen) insulin NPH isoph U-100 human 100 20 unit subcut QAM 02/10/24 02/10/24 History unit/mL (3 mL) subcutaneous pen (Novolin N FlexPen) insulin regular human 100 unit/mL 0 sliding scale dose subcut . 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, with necrosis of bone Cellulitis of foot, left (Acute) Type 2 diabetes mellitus Right lower lobe pneumonia (Acute) SOB (shortness of breath) (Acute) Acute hyperkalemia (Acute) Orthostatic hypotension Recurrent syncope Surgical history unknown HTN (hypertension) (Chronic) Diabetes (Chronic) Hyperlipidemia (Chronic) CVA (cerebral infarction) (Acute 2016) Colitis Syncope (Acute 2016) Medical History Diabetic foot ulcer CKD (chronic kidney disease) APRIL (acute kidney injury) Elevated troponin HHNC (hyperglycemic hyperosmolar nonketotic coma) Orthostatic hypotension (2016) Anemia Surgical History S/P craniotomy Family History Other Family history non-contributory Social History Smoking Status: Former smoker Tobacco Type: Cigarettes Age Started Using Tobacco: 13; packs per day: 0.5; Second Hand Exposure: No; Do You Dip or Chew Tobacco: No; Hx Alcohol Use: No Hx Substance Use: No Preferred Language: Tamazight Communication Ability: Effective Hogshead Builder Required: No Beliefs That Will Affect Care: None marital status: Current Living Situation: Other Current Living Situation Comment: correctional facility current occupational status: unemployed Other Information That Helps Us Care for You: No Feels Safe at Home: Yes Safety Concerns: Feels Safe At This Time Assistive Devices: None Physical Exam Physical Exam: Physical Exam: General: In no acute distress, stated age, well-nourished, good hygiene HEENT: Normocephalic, atraumatic, no scleral icterus, pupils around round, symmetrical, and reactive to light, dry mucus membranes, trachea midline, no thyromegaly Chest/Pulm: No respiratory distress, symmetrical chest expansion, clear breath sounds throughout Cardiac: RRR, no murmurs noted Abdomen: Negative for ascites and bruising, normoactive bowel sounds, soft, non-tender to palpation throughout Musculoskeletal: Symmetrical and without signs of acute trauma, upper and lower extremities with full ROM, no atrophy, spasticity, or flaccidity >S/P previous left first and second toe amputations Extremities: Radial, dorsalis pedis, and posterior tibial pulses are intact and symmetrical, no edema noted in the BL LE's Skin: Warm, dry, no rashes , lesions, or scars noted Neuro: Alert and oriented to person, place, month, year, and president, no focal defects, CN II-XII tested and intact, no tremors noted Psych: No acute distress, calm and cooperative during the exam Results & Data Results & Data Vital Signs (Past 12 Hours) Vital Signs Temp Pulse Pulse Resp BP BP Pulse Ox 02/10/24 18:28 72 02/10/24 17:55 36.5 C 71 20 184/97 H 99 02/10/24 17:48 36.5 C 69 20 184/97 H 100 O2 Del Method 02/10/24 18:28 02/10/24 17:55 Room Air 02/10/24 17:48 Room Air Laboratory Results Abnormal lab results 02/10/24 02/10/24 Range/Units 17:52 19:20 RBC 4.20 L (4.70-6.10) M/uL Hgb 11.9 L (14.0-18.0) g/dl Hct 36.2 L (42.0-52.0) % [place] # (Auto) 1.12 H (0.11-0.59) K/uL Sodium 132 L (136-145) mmol/L BUN 49 H (6-23) mg/dl Creatinine 2.60 H (0.6-1.4) mg/dl Glucose 135 H (70-99(Fasting)) mg/dl Globulin 4.4 H (2.5-4.0) gm/dl Urine Protein 2+ H (Negative) Urine Glucose (UA) 2+ H (Negative) Diagnostic Findings Cervical Spine CT 02/10/24 17:57 CT cervical spine wo con CT DOSE: 1178.49 mGy.cm CLINICAL HISTORY: 68 years-old Male with fall. Acute head and neck pain status post fall COMPARISON: Head CT of same day, CT cervical spine 03/12/2023 TECHNIQUE: Multiple axial CT images of the cervical spine were obtained without contrast. A dose lowering technique was utilized adhering to the principles of ALARA. FINDINGS: Multilevel degenerative changes with reversal of the normal cervical lordosis, unchanged. Demineralized appearance of the bones. No acute fracture or subluxation. The cervical soft tissues appear unremarkable. Asymmetric soft tissue thickening with redundancy of the left true vocal fold. The visualized lung apices appear clear. IMPRESSION: 1. No acute cervical spine fracture or subluxation. 2. Incidental note is made of asymmetric thickening and redundancy of the left vocal fold. Nonemergent ENT consult with direct visualization may be considered if of further clinical concern. ACT 112: Negative or not required by law. The above report was generated using voice recognition software. It may contain grammatical, syntax or spelling errors. Electronically signed by: Ayaz Nichols M.D. 02/10/2024 8:00 PM Chest X-Ray 02/10/24 17:57 XR chest 1V portable HISTORY: 68 years-old Male fall acute chest trauma status post fall COMPARISON: 09/15/2023 TECHNIQUE: AP view of the chest FINDINGS: Cardiomediastinal and hilar silhouettes are unchanged. No pneumothorax, pleural effusion or airspace consolidation. The bones appear grossly intact. IMPRESSION: No acute process. ACT 112: Negative or not required by law. The above report was generated using voice recognition software. It may contain grammatical, syntax or spelling errors. Electronically signed by: Ayaz Nichols M.D. 02/10/2024 6:[address] 02/10/24 17:57 CT head/brain wo con CLINICAL HISTORY: 68 years-old Male with syncope. Acute syncope TECHNIQUE: Multiple axial CT images of the head were obtained without contrast. A dose lowering technique was utilized adhering to the principles of ALARA. COMPARISON: CT cervical spine of same day, 03/12/2023 FINDINGS: A focus of left frontal encephalomalacia is consistent with a remote insult. There is age-related involutional change noting mild subcortical and periventr icular microangiopathic disease. There is no hemorrhage, mass effect, or evidence of acute territorial ischemia by CT criteria. Chronic lacunar infarcts are noted in the left basal ganglia and the right cerebellar hemisphere. Flores- white matter differentiation is preserved. No extra-axial fluid collection is seen. Postoperative changes of prior left-sided craniotomy. The paranasal sinuses, mastoid air cells, and middle ear cavities are clear. IMPRESSION: Chronic findings as above without acute intracranial abnormality. ACT 112: Negative or not required by law. The above report was generated using voice recognition software. It may contain grammatical, syntax or spelling errors. Electronically signed by: Ayaz Nichols M.D. 02/10/2024 8:00 PM ECG Additional Comments: Sinus rhythm with 1st degree A-V block Nonspecific T wave abnormality Abnormal ECG When compared with ECG of 15-SEP-2023 10:16, No significant change was found Code Status & VTE Plan Code Status full code VTE Prophylaxis Plan VTE Prophylaxis will be ordered: Yes Supervising Physician Co-Signing Physician Notes Attending addendum: I have physically seen this patient, have supervised the JULIA's activities, and agree with the H&P unless as otherwise noted. Assessment and Plan: Acute kidney injury- Creatinine 2.60, with base 1.25 Admit to telemetry Status post 2 L normal saline bolus in the ED LR at 80 mL/h x 1 L Repeat laboratories in a.m. Have received additional diuretics in the outpatient setting, which will be held at this time Orthostatic hypotension- Secondary to overdiuresis and hypovolemia correct as above Diabetes mellitus type 2- Lantus as noted and correction factor Placed on Accu-Cheks with NovoLog SSI RA- Continue hydroxychloroquine Remaining orders and notations as noted PG Care Time/CCT Total # of Minutes Spent Total Time Spent with Patient: Total time spent is greater than 50% in coordination of care (as documented) at patient's floor/unit and/or counseling patient: C[place] [address] INT INP/OBS CARE 2/55MIN Patient Type Established Medical Decision Making Moderate Complexity Diagnoses APRIL (acute kidney injury) N17.9 Orthostatic hypotension I95.1 Vocal cord anomaly Q31.8 Dizziness R42 Type 2 diabetes mellitus with foot ulcer, with long-term current use of insulin E11.621; L97.509; Z79.4 Diabetes mellitus complication detail: with foot ulcer Diabetes mellitus complication status: with skin complications Diabetes mellitus buttermaker insulin use: with group home use CVA (cerebral infarction) I63.9 Rheumatoid arthritis M06.9 HTN (hypertension) I10 Hypertension type: unspecified (5) Type 2 diabetes mellitus Diabetes mellitus complication detail: with foot ulcer Diabetes mellitus complication status: with skin complications Diabetes mellitus group home insulin use: with buttermaker use Qualified Code(s): E11.621 - Type 2 diabetes mellitus with foot ulcer; L97.509 - Non-pressure chronic ulcer of other part of unspecified foot with unspecified severity; Z79.4 - intermediate (current) use of insulin (8) HTN (hypertension) Hypertension type: unspecified Qualified Code(s): I10 - Essential (primary) hypertension
[2024-02-10] MEDS ORDERED: GLUCOSE 10 TAB/TUBE PO PRN (21:28)
[2024-02-10] MEDS ORDERED: GLUCAGON FOR INJ 1 MG VIAL SQ PRN (21:28)
[2024-02-10] MEDS ORDERED: GLUCOSE 40% GEL 15 GM TUBE PO PRN (21:28)
[2024-02-10] MEDS ORDERED: DEXTROSE 50% 50 ML SYRINGE IV PRN (21:28)
[2024-02-10] MEDS ORDERED: CARBOHYDRATES FOR HYPOGLYCEMIA PO PRN (21:28)
[2024-02-10] MEDS: LACTATED RINGER'S 1,000 ML IV SCH (22:09)
[2024-02-10] MEDS: hydrALAZINE HCL 25 MG TAB PO STA (22:09)
[2024-02-10] MEDS ORDERED: ACETAMINOPHEN 325 MG TAB PO PRN (23:23)
[2024-02-11] MEDS: hydrALAZINE HCL 25 MG TAB PO PRN (00:28)
--- NOTE | 2024-02-11 03:57 | Ultrasound Report ---
Exam(s): US RENAL EXAM: US Retroperitoneal Limited, Renal CLINICAL HISTORY: Reason for exam: APRIL, please monitor for obstruction. TECHNIQUE: Real-time limited ultrasound of the retroperitoneum with image documentation. COMPARISON: None. FINDINGS: Right kidney: The right kidney measures 10.3 x 4.7 x 4.9 cm. No stones. No hydronephrosis. Left kidney: The left kidney measures 9.2 x 4.6 x 4.5 cm. No stones. No hydronephrosis. Bladder: The urinary bladder is within normal limits with bilateral ureteral jets not visualized. IMPRESSION: Unremarkable renal ultrasound. Electronically signed by: June Velez MD 02/11/24 03:56 AM
[2024-02-11 06:35] LABS: Basophils # (auto) 0.04 K/uL (0.00-0.20); Basophils % (auto) 0.6 %; Eosinophils # (auto) 0.25 K/uL (0.00-0.50); Eosinophils % (auto) 3.7 %; Hematocrit (blood only) 36.6 % (42.0-52.0); Hemoglobin 12.3 g/dl (14.0-18.0); Immature Granulocytes # (auto) 0.02 K/uL (0.01-0.20); Immature Granulocytes % (auto) 0.3 %; Lymphocytes % (auto) 28.1 %; Mean Corpuscular Hemoglobin 28.5 pg (25.0-34.0); Mean Corpuscular Hgb Conc 33.6 g/dL (32.0-36.0); Mean Corpuscular Volume 84.9 fL (80.0-100.0); Mean Platelet Volume 10.8 fL (9.4-12.4); Monocytes % (auto) 8.9 %; Neutrophils # (auto) 3.95 K/uL (1.40-6.50); Neutrophils % (auto) 58.4 %; Platelet Count 252 K/uL (130-400); RDW Standard Deviation 40.4 fL (36.4-46.3); Red Blood Count 4.31 M/uL (4.70-6.10); White Blood Count 6.76 K/ul (4.8-10.8)
[2024-02-11 07:10] LABS: BUN Creatinine Ratio 22.5 (10-20); Calcium 8.8 mg/dl (8.6-10.3); Creatinine Clr Calc Pharmacy 39.1 ml/min; Est GFR (African American) 41.3 ml/min; Est GFR (Non-African American) 35.6 ml/min; Magnesium 1.7 mg/dl (1.7-2.4); Potassium 4.8 mmol/L (3.5-5.1)
[2024-02-11] MEDS: INSULIN ASPART PER UNIT CHARGE SC SCH (08:09)
[2024-02-11] MEDS: LANTUS PER UNIT CHARGE SQ SCH ×2 (08:10→20:13)
[2024-02-11] MEDS: NORTRIPTYLINE HCL 25 MG CAP PO SCH (08:11)
[2024-02-11] MEDS: HYDROXYCHLOROQUINE SULFATE 200 MG TAB PO SCH (08:11)
[2024-02-11] MEDS: ATORVASTATIN 10 MG TAB PO SCH (08:11)
--- NOTE | 2024-02-11 09:15 | Electrocardiogram Report ---
Test Reason : Blood Pressure : / mmHG Vent. Rate : 071 BPM Atrial Rate : 071 BPM P-R Int : 212 ms QRS Dur : 104 ms QT Int : 414 ms P-R-T Axes : 061 032 095 degrees QTc Int : 449 ms Sinus rhythm with 1st degree A-V block Nonspecific T wave abnormality Lateral leads Abnormal ECG When compared with ECG of 15-SEP-2023 10:16, No significant change was found Confirmed by Moi Eldridge ([id number]) on 02/11/2024 9:15:01 AM Referred By: [facility] Confirmed By:Moi Eldridge
[2024-02-11] MEDS: NovoLIN-R INSULIN PER UNIT CHARGE SC STA (09:23)
[2024-02-11] MEDS: INSULIN ASPART PER UNIT CHARGE SC STA (09:26)
--- NOTE | 2024-02-11 09:48 | Hospitalist Progress Note ---
Date of Service February 11, 2024 Assessment & Plan (1) APRIL (acute kidney injury): Plan: -Most likely pre renal due to dehydration from over diuresis -Noted to have a Cr of 2.6 on admission, baseline is near 1.2 -No evidence of bladder obstruction -Some improvement in Cr following saline hydration, Cr 1.7 -Avoid nephrotoxic agents -Recheck BMP (2) Orthostatic hypotension: Plan: -Noted to have positive orthostatic vitals at [facility] and on arrival -Likely due to dehydration from recent diuresis -Fall precautions -Continue IV hydration overnight -Would repat orthostatic vitals prior to discharge (3) Vocal cord anomaly: Plan: -Ct of the cervical spine noted asymmetric thickening and redundancy of the left vocal fold. -Recommends no-emergent ENT consult if clinical concern -No recent complaints per patient -Would recommend touching base with ENT tomorrow to see if full consult is warranted at this time -Continue aspiration precautions with mincedmoist diet for now (4) Dizziness: Plan: -Was occurring with positional changes -Denies recent dizziness at rest -Likely due to orthostatic hypotension -Non-focal neurologic exam -CT of the head/brain wo con was negative for acute findings -Fall precautions, PT/OT consults ordered (5) Type 2 diabetes mellitus: Plan: -Poorly controlled BG, 500 today -Monitor BSG ACHS, goal is 110-160 for now -Will be conservative with management overnight due to APRIL -Increase lantus to 10 units BID -HH/DMII diet -Adjust regimen as needed (6) CVA (cerebral infarction): Plan: -Continue statin (7) Rheumatoid arthritis: Plan: -Can continue Hydroxychloroquine as he is without signs of infection (8) HTN (hypertension): Plan: -Patient now significantly hypertensive -Will give a dose of his prn 25 mg PO hydralzine now -Can plan to resume home amlodipine tomorrow if stable Plan monitor BMP, hopefully d/c in the next 24 hrs Admission and Anticipated Discharge Date Admission Date: February 10, 2024 Subjective patient seen and examined, denies any new complaints Review of Systems Review of Systems: All systems reviewed are negative, apart from the ones contained in the history. Physical Exam Physical Exam: The patient is awake, alert and oriented 3, well developed and well nourished, normocephalic and atraumatic, lying in bed and in no acute distress. HEENT--PERRL, EOMI, mucous membranes and oropharynx mildly dry Neck--supple. No JVD. No bruits. Thyroid normal, trachea midline, no adenopathy. Heart--normal S1 and S2. No murmurs, rubs or gallops. Lungs--clear bilaterally, no respiratory distress, no accessory muscle use. Abdomen--normal bowel sounds and soft. Extremities--no cyanosis or clubbing. No edema. Dermatologic--normal skin turgor, normal color, no abnormal lymph nodes, no rash. Neurologic--cranial nerves II through XII grossly intact. Rheumatologic--normal range of motion. Psychiatric--normal affect. Results & Data Results & Data Vital Signs (Past 12 Hours) Vital Signs Temp Pulse Pulse Resp BP BP Pulse Ox 02/11/24 08:19 97.5 F L 82 18 195/95 H 99 02/11/24 07:18 81 02/11/24 03:19 98.2 F 86 16 179/85 H 97 02/11/24 02:53 77 02/11/24 00:18 183/93 H 02/10/24 23:12 97.9 F 76 16 190/88 H 100 02/10/24 22:00 68 16 194/107 H 100 02/10/24 21:45 68 O2 Del Method 02/11/24 08:19 Room Air 02/11/24 07:18 02/11/24 03:19 Room Air 02/11/24 02:53 02/11/24 00:18 02/10/24 23:12 Room Air 02/10/24 22:00 Room Air 02/10/24 21:45 PG Care Time/CCT Total # of Minutes Spent Total Time Spent with Patient: Total time spent is greater than 50% in coordination of care (as documented) at patient's floor/unit and/or counseling patient: Coding Level of Care Code 49137 SUB INP/OBS CARE 2/35MIN Diagnoses APRIL (acute kidney injury) N17.9 Orthostatic hypotension I95.1 Vocal cord anomaly Q31.8 Dizziness R42 Type 2 diabetes mellitus with foot ulcer, with long-term current use of insulin E11.621; L97.509; Z79.4 Diabetes mellitus mcfp insulin use: with real estate asset manager use Diabetes mellitus complication status: with skin complications Diabetes mellitus complication detail: with foot ulcer CVA (cerebral infarction) I63.9 Rheumatoid arthritis M06.9 HTN (hypertension) I10 Hypertension type: unspecified Time Spent (min) 35 (5) Type 2 diabetes mellitus Diabetes mellitus real estate asset manager insulin use: with real estate asset manager use Diabetes mellitus complication status: with skin complications Diabetes mellitus complication detail: with foot ulcer Qualified Code(s): E11.621 - Type 2 diabetes mellitus with foot ulcer; L97.509 - Non-pressure chronic ulcer of other part of unspecified foot with unspecified severity; Z79.4 - FPC (current) use of insulin (8) HTN (hypertension) Hypertension type: unspecified Qualified Code(s): I10 - Essential (primary) hypertension
--- NOTE | 2024-02-11 10:03 | XCELERA ---
[id number]
[2024-02-12 06:14] LABS: Basophils # (auto) 0.06 K/uL (0.00-0.20); Eosinophils # (auto) 0.26 K/uL (0.00-0.50); Eosinophils % (auto) 4.3 %; Hematocrit (blood only) 39.2 % (42.0-52.0); Hemoglobin 12.9 g/dl (14.0-18.0); Immature Granulocytes # (auto) 0.02 K/uL (0.01-0.20); Immature Granulocytes % (auto) 0.3 %; Lymphocytes % (auto) 31.3 %; Mean Corpuscular Hgb Conc 32.9 g/dL (32.0-36.0); Mean Corpuscular Volume 85.2 fL (80.0-100.0); Mean Platelet Volume 10.6 fL (9.4-12.4); Monocytes # (auto) 0.66 K/uL (0.11-0.59); Monocytes % (auto) 10.9 %; Neutrophils # (auto) 3.17 K/uL (1.40-6.50); Neutrophils % (auto) 52.2 %; Platelet Count 273 K/uL (130-400); RDW Coefficient of Variation 12.9 % (11.5-14.5); White Blood Count 6.07 K/ul (4.8-10.8)
[2024-02-12 06:22] LABS: BUN Creatinine Ratio 19.8 (10-20); Calcium 9.6 mg/dl (8.6-10.3); Creatinine Clr Calc Pharmacy 42.6 ml/min; Est GFR (African American) 45.7 ml/min; Est GFR (Non-African American) 39.4 ml/min; Magnesium 1.7 mg/dl (1.7-2.4)
[2024-02-12] MEDS: SODIUM CHLORIDE 0.9% 1,000 ML IV SCH (08:14)
--- NOTE | 2024-02-12 10:32 | Hospitalist Progress Note ---
Date of Service February 12, 2024 Assessment & Plan (1) APRIL (acute kidney injury): Plan: -Most likely prerenal due to dehydration from overdiuresis -Some improvement following rehydration -Noted to have a Cr of 1.7 today, baseline is near 1.2 -Avoid nephrotoxic's (2) Orthostatic hypotension: Plan: -Noted to have positive orthostatic vitals at [facility] and on arrival -Worsened by recent diuresis and dehydration -Repeat orthostatics, still positive here in the hospital -Patient on as needed hydralazine 25 mg for systolic blood pressures above 180 (3) Vocal cord anomaly: Plan: -Ct of the cervical spine noted asymmetric thickening and redundancy of the left vocal fold. -Recommends no-emergent ENT consult if clinical concern -No recent complaints per patient -Would recommend touching base with ENT tomorrow to see if full consult is warranted at this time -Continue aspiration precautions with mincedmoist diet for now (4) Dizziness: Plan: -Was occurring with positional changes -Denies recent dizziness at rest -Likely due to orthostatic hypotension -Non-focal neurologic exam -CT of the head/brain wo con was negative for acute findings -Fall precautions, PT/OT consults ordered (5) Type 2 diabetes mellitus: Plan: -Monitor BSG ACHS, goal is 110-160 for now -Will be conservative with management overnight due to APRIL -Start 5 units lantus BID, CF 50, and CR of 15 -HH/DMII diet -Adjust regimen as needed (6) CVA (cerebral infarction): Plan: -Continue statin (7) Rheumatoid arthritis: Plan: -Can continue Hydroxychloroquine as he is without signs of infection (8) HTN (hypertension): Plan: -Patient now significantly hypertensive -Will give a dose of his prn 25 mg PO hydralzine now -Can plan to resume home amlodipine tomorrow if stable Plan Hopefully discharge in next 24 hours Admission and Anticipated Discharge Date Admission Date: February 10, 2024 Subjective patient seen and examined, denies any new complaints Review of Systems Review of Systems: All systems reviewed are negative, apart from the ones contained in the history. Physical Exam Physical Exam: The patient is awake, alert and oriented 3, well developed and well nourished, normocephalic and atraumatic, lying in bed and in no acute distress. HEENT--PERRL, EOMI, mucous membranes and oropharynx mildly dry Neck--supple. No JVD. No bruits. Thyroid normal, trachea midline, no adenopathy. Heart--normal S1 and S2. No murmurs, rubs or gallops. Lungs--clear bilaterally, no respiratory distress, no accessory muscle use. Abdomen--normal bowel sounds and soft. Extremities--no cyanosis or clubbing. No edema. Dermatologic--normal skin turgor, normal color, no abnormal lymph nodes, no rash. Neurologic--cranial nerves II through XII grossly intact. Rheumatologic--normal range of motion. Psychiatric--normal affect. Results & Data Results & Data Vital Signs (Past 12 Hours) Vital Signs Temp Pulse Pulse Resp BP Pulse Ox O2 Del Method 02/12/24 07:48 97.9 F 73 18 194/85 H 98 Room Air 02/12/24 07:24 Room Air 02/12/24 07:03 83 02/12/24 03:00 97.7 F 66 18 177/97 H 97 Room Air 02/12/24 00:17 71 129/72 02/11/24 22:43 98.2 F 72 16 209/106 H 100 Room Air PG Care Time/CCT Total # of Minutes Spent Total Time Spent with Patient: Total time spent is greater than 50% in coordination of care (as documented) at patient's floor/unit and/or counseling patient: Coding Level of Care Code 65926 SUB INP/OBS CARE 2/35MIN Diagnoses APRIL (acute kidney injury) N17.9 Orthostatic hypotension I95.1 Vocal cord anomaly Q31.8 Dizziness R42 Type 2 diabetes mellitus with foot ulcer, with long-term current use of insulin E11.621; L97.509; Z79.4 Diabetes mellitus group home insulin use: with group home use Diabetes mellitus complication status: with skin complications Diabetes mellitus complication detail: with foot ulcer CVA (cerebral infarction) I63.9 Rheumatoid arthritis M06.9 HTN (hypertension) I10 Hypertension type: unspecified Time Spent (min) 35 (5) Type 2 diabetes mellitus Diabetes mellitus group home insulin use: with long term acute care registered nurse use Diabetes mellitus complication status: with skin complications Diabetes mellitus complication detail: with foot ulcer Qualified Code(s): E11.621 - Type 2 diabetes mellitus with foot ulcer; L97.509 - Non-pressure chronic ulcer of other part of unspecified foot with unspecified severity; Z79.4 - intermediate manager (current) use of insulin (8) HTN (hypertension) Hypertension type: unspecified Qualified Code(s): I10 - Essential (primary) hypertension
[2024-02-13 06:22] LABS: Basophils # (auto) 0.07 K/uL (0.00-0.20); Basophils % (auto) 1.3 %; Eosinophils # (auto) 0.23 K/uL (0.00-0.50); Eosinophils % (auto) 4.3 %; Hematocrit (blood only) 36.2 % (42.0-52.0); Hemoglobin 12.1 g/dl (14.0-18.0); Immature Granulocytes # (auto) 0.01 K/uL (0.01-0.20); Immature Granulocytes % (auto) 0.2 %; Lymphocytes # (auto) 2.11 K/uL (1.20-3.40); Lymphocytes % (auto) 39.9 %; Mean Corpuscular Hemoglobin 28.1 pg (25.0-34.0); Mean Corpuscular Hgb Conc 33.4 g/dL (32.0-36.0); Mean Corpuscular Volume 84.2 fL (80.0-100.0); Mean Platelet Volume 10.6 fL (9.4-12.4); Monocytes # (auto) 0.55 K/uL (0.11-0.59); Monocytes % (auto) 10.4 %; Neutrophils # (auto) 2.32 K/uL (1.40-6.50); Neutrophils % (auto) 43.9 %; Platelet Count 246 K/uL (130-400); RDW Coefficient of Variation 12.8 % (11.5-14.5); RDW Standard Deviation 39.2 fL (36.4-46.3); White Blood Count 5.29 K/ul (4.8-10.8)
[2024-02-13 06:37] LABS: BUN Creatinine Ratio 21.5 (10-20); Calcium 8.9 mg/dl (8.6-10.3); Creatinine Clr Calc Pharmacy 50.8 ml/min; Est GFR (African American) 56.6 ml/min; Est GFR (Non-African American) 48.9 ml/min; Magnesium 1.6 mg/dl (1.7-2.4); Potassium 3.8 mmol/L (3.5-5.1)
[2024-02-13] MEDS: MAGNESIUM SULFATE / D5W 1 GM/100 ML BAG IV SCH (07:50)
--- NOTE | 2024-02-13 11:56 | Discharge Summary ---
Date of Service February 13, 2024 Admission HPI Per Admitting Provider Kwaku Ashley is a 68 year old male inmate of [facility] with a PMH significant for RA (on hydroxychloroquine and Enbrel), HTN, DMII with previous right diabetic toe infections, previous CVA, and hyperlipidemia who presented to the [facility] ED via EMS on 02/10/24 with complaints of dizziness and multiple falls over the past week. He was noted to be hypertensive on arrival at 184/97 but was otherwise stable. Labs were significant for a cr of 2.60 (baseline is near 1.2), BUN of 49, sodium of 132, UA with 2+ protein and glucose but otherwise WNL. CT of the head/brain wo con was read as " Chronic findings as above without acute intracranial abnormality.". Chest xray was read as negative for acute findings. CT of the cervical spine wo con was read as "1. No acute cervical spine fracture or subluxation. 2. Incidental note is made of asymmetric thickening and redundancy of the left vocal fold. Nonemergent ENT consult with direct visualization may be considered if of further clinical concern.". Prior to admission the patient was given 2L NSS. At the time of the exam the patient was sitting in bed in no acute distress. He states that he started to develop significant lightheadedness/dizziness with positional changes on 02/08/24. He had 3 falls on 02/07, all from ground level due to his symptoms. He did hit his head off his toilet once and thinks he lost consciousness momentarily. Denies changes in vision, hearing, taste, smell, focal weakness, paresthesias, chest pain, SOB, abd pain, nausea, vomiting, diarrhea. When asking about recent LE swelling he states that his legs were swollen last week. When asked, he states that he was getting diuretics at the intermediate for this over the past week. He is currently asymptomatic at rest. Nursing staff reports that the patient was significantly orthostatic at he intermediate and on arrival. His orthostasis has improved after IV fluids in the ED. Principal Diagnosis APRIL Discharge Exam The patient is awake, alert and oriented 3, well developed and well nourished, normocephalic and atraumatic, lying in bed and in no acute distress. HEENT--PERRL, EOMI, mucous membranes and oropharynx mildly dry Neck--supple. No JVD. No bruits. Thyroid normal, trachea midline, no adenopathy. Heart--normal S1 and S2. No murmurs, rubs or gallops. Lungs--clear bilaterally, no respiratory distress, no accessory muscle use. Abdomen--normal bowel sounds and soft. Extremities--no cyanosis or clubbing. No edema. Dermatologic--normal skin turgor, normal color, no abnormal lymph nodes, no rash. Neurologic--cranial nerves II through XII grossly intact. Rheumatologic--normal range of motion. Psychiatric--normal affect. Discharge Data Allergies Allergy/AdvReac Type Severity Reaction Status Date / Time No Known Allergies Allergy Verified 02/10/24 17:57 Consultations 02/10/24 20:24 ED Decision to Admit Stat Ordered Studies 02/10/24 17:57 CT cervical spine wo con Stat CT head/brain wo con Stat 02/10/24 21:46 US Renal Bladder [US renal/blad retro comp] Urgent Hospital Course (1) APRIL (acute kidney injury): -Most likely prerenal due to dehydration from overdiuresis -Renal function is now back to baseline -Avoid nephrotoxic's (2) Orthostatic hypotension: -Noted to have positive orthostatic vitals at [facility] and on arrival -Worsened by recent diuresis and dehydration -Repeat orthostatics, still positive here in the hospital -Patient on as needed hydralazine 25 mg for systolic blood pressures above 180 (3) Vocal cord anomaly: -Ct of the cervical spine noted asymmetric thickening and redundancy of the left vocal fold. -Recommends no-emergent ENT consult if clinical concern -No recent complaints per patient -Would recommend touching base with ENT tomorrow to see if full consult is warranted at this time -Continue aspiration precautions with mincedmoist diet for now (4) Dizziness: -Was occurring with positional changes -Denies recent dizziness at rest -Likely due to orthostatic hypotension -Non-focal neurologic exam -CT of the head/brain wo con was negative for acute findings -Fall precautions, PT/OT consults ordered (5) Type 2 diabetes mellitus: -Monitor BSG ACHS, goal is 110-160 for now -Will be conservative with management overnight due to APRIL -Start 5 units lantus BID, CF 50, and CR of 15 -HH/DMII diet -Adjust regimen as needed (6) CVA (cerebral infarction): -Continue statin (7) Rheumatoid arthritis: -Can continue Hydroxychloroquine as he is without signs of infection (8) HTN (hypertension): -Patient now significantly hypertensive -Will give a dose of his prn 25 mg PO hydralzine now -Can plan to resume home amlodipine tomorrow if stable Plan discharge Total Time Total Time Spent Total Time Spent (In Minutes): 35 Discharge Plan Discharge Items [facility] Reason For Visit: RECURRENT FALLS, DIZZINESS, APRIL Discharge Diagnosis: APRIL Activity: Resume your previous activity Non-emergency contact: Primary Care Provider Call non-emergency contact if: you have any medication questions Follow-up/Referrals: Luc BACA [Primary Care Provider] - Diet: Regular Addtl Attending Provider Instructions: please follow up with your regular doctors Pending Studies at Discharge: No Stand-Alone Forms: My [facility] Skilled Items Patient informed of condition?: Yes Discharge Level of Care: Other Communicable Disease: No Discharge Prognosis: Stable Lines: None Urinary Catheter: No Medications and DC Order Prescriptions: Continued nortriptyline 25 mg Capsule 25 mg PO BID folic acid 1 mg Tablet 1 mg PO DAILY hydroxychloroquine 200 mg Tablet 200 mg PO DAILY docusate sodium 100 mg Tablet 100 mg PO BID PRN (Reason: Constipation) Enbrel 50 mg/mL (1 mL) Syringe 50 mg SUBCUT WK Rx Instructions: WEDNESDAYS atorvastatin 10 mg Tablet 10 mg PO DAILY amlodipine 10 mg Tablet 10 mg PO DAILY Rx Instructions: HOLD IF B/P IS <120/80 ammonium lactate 12 % Lotion 1 applic TOPICAL BID glucose 4 gram Tablet,Chewable 4 g PO DIRECTED PRN (Reason: HYPOGLYCLEMIA) albuterol sulfate 90 mcg/actuation Hfa Aerosol Inhaler 2 puff INHALATION QID PRN (Reason: Shortness Of Breath) hydralazine 25 mg Tablet 25 mg PO TID PRN (Reason: Hypertension) Novolin N FlexPen 100 unit/mL (3 mL) Insulin Pen 18 unit SUBCUT QPM Novolin N FlexPen 100 unit/mL (3 mL) Insulin Pen 20 unit SUBCUT QAM Novolin R FlexPen 100 unit/mL (3 mL) Insulin Pen 0 sliding scale dose SUBCUT . NEEDED PRN (Reason: Hyperglycemia) cyanocobalamin (vitamin B-12) 500 mcg Tablet 500 mcg PO DAILY Novolin R FlexPen 100 unit/mL (3 mL) Insulin Pen 10 unit SUBCUT BIDWMEAL Discharge Orders: Discharge Order (Routine); Ordered 02/13/24 Ordered By: Heath Willis Admission Data Admit Date/Time: 02/10/24 21:27 Attending Provider: Heath Willis Admit Provider: Ryan Mancera Primary Care Provider: Luc BACA Other Providers: Ryan Mancera Other Interventions: Discharge Summary Assessment (RN) Last Done: 02/13/24 10:19 Coding Level of Care Code 79204 INP/OBS DISCH >30 MIN Diagnoses APRIL (acute kidney injury) N17.9 Orthostatic hypotension I95.1 Vocal cord anomaly Q31.8 Dizziness R42 Type 2 diabetes mellitus with foot ulcer, with long-term current use of insulin E11.621; L97.509; Z79.4 Diabetes mellitus terminal press operator insulin use: with custodial use Diabetes mellitus complication status: with skin complications Diabetes mellitus complication detail: with foot ulcer CVA (cerebral infarction) I63.9 Rheumatoid arthritis M06.9 HTN (hypertension) I10 Hypertension type: unspecified Time Spent (min) 35
== END 2024-02-13 11:54 | DRG 683 ==
LOC: ED 17:38 → SUATTDRO 21:27 → 2W 21:27

== ENCOUNTER 2024-09-09 09:03 | Inpatient (IN) ==
--- NOTE | 2024-09-09 10:11 | Emergency Department Note ---
Impression & Plan Osteomyelitis, Cellulitis, Failure of outpatient treatment, Hypoglycemia ED Provider Note NAME: DEBORAH [id number] JOSUE AGE: 69 SEX: M : 1955 ARRIVES VIA: Walk-In INFORMANT: [Patient] ED PROVIDER(S): [Isra Alarcon MD] CHIEF COMPLAINT: Wound HISTORY OF PRESENT ILLNESS: The patient is a 69-year-old male who [facility] the [facility] with concerns for osteomyelitis. He has diabetes and has been having difficulty with ulcers on his toes, in particular, the right great toe. The patient was in our ED last month and there were no findings of osteomyelitis. He was placed on Keflex. His wound culture grew Pseudomonas and sensitive staph aureus. The patient's wound has worsened, there is now a foul odor and a large skin flap. Some tissue was pulled off today accidentally when he removed his sock. The patient complains of some pain in the foot and leg, he has not had fever, he has not had shortness of breath. PMHx/PSHx/Social Hx: See Below PHYSICAL EXAM: GENERAL: Patient is in no acute distress. HEENT: No acute trauma, normocephalic atraumatic, mucous membranes moist, no nasal congestion. NECK: No stridor, no adenopathy, no meningismus, trachea is midline. LUNGS: Clear to auscultation bilaterally, no wheeze, no rhonchi, breath sounds equal. HEART: Without murmurs gallops or rubs, regular rate and rhythm. ABDOMEN: Soft, nontender, no peritonitis. EXTREMITIES: No cyanosis. The patient does have some edema to the right lower extremity when compared to the left. There is some warmth to the right distal leg. There is a large ulcer to the distal aspect of the right great toe with a foul odor. A culture was obtained. NEUROLOGIC: Oriented x 3, no acute motor or sensory deficits, no focal weakness. SKIN: No jaundice, no diaphoresis. DIFFERENTIAL DIAGNOSIS: Osteomyelitis, failed outpatient management, ulcer, cellulitis, among others. EMERGENCY DEPARTMENT PROCEDURES: MEDICAL DECISION MAKING: There is no leukocytosis. A mild anemia was seen. There was a normal platelet count. Creatinine was somewhat elevated at 1.53. Glucose was quite low at 27. The patient received IV dextrose and was given a meal and his sugar improved. There is no elevation to the lactic value, this makes severe sepsis less likely. There wa no concerning liver enzyme elevation. COVID test returned negative. CT of the right foot does show the start of osteomyelitis as well as potential cellulitis. On exam, the patient's right lower extremity was warm to the touch and swollen. There was a foul odor from the right great toe. A culture was obtained. Patient received IV Zosyn and IV daptomycin. The patient is in need of a hospital stay. He has issues with his feet and is now suffering from osteomyelitis. He will require IV antibiotic therapy and likely surgical intervention. I spoke with the patient, I spoke with the guards. I did speak with case management. The on-call hospitalist was consulted. Prior/Outside records/notes reviewed: Today's [facility]ent[facility] notes describing his presentation, the concerns and the need for an ED referral. Imaging/x-ray results per my interpretation: Chronic Medical/Social conditions affecting care: Currently incarcerated. Care/Management discussed with: Case management, the on-call hospitalist. Level of care consideration(s): After review of the information above and other included data: --I believe the patient requires escalation of care to admission DISPOSITION: Admission Past Med/Surg History Problem List (Updated 09/09/24 @ 15:31 by Isra Alarcon MD) Hypoglycemia (Acute) Failure of outpatient treatment (Acute) Cellulitis (Acute) Osteomyelitis (Acute) CKD stage 3b, GFR 30-44 ml/min Ulcerative colitis H/O: CVA (cerebrovascular accident) Acute osteomyelitis of toe of right foot Vocal cord anomaly Rheumatoid arthritis Head injury (Acute) Orthostatic hypotension (Acute) Type 2 diabetes mellitus with polyneuropathy Diabetic ulcer of left foot associated with diabetes mellitus due to underlying condition, with necrosis of bone Cellulitis of foot, left (Acute) Type 2 diabetes mellitus Right lower lobe pneumonia (Acute) SOB (shortness of breath) (Acute) Acute hyperkalemia (Acute) Orthostatic hypotension Recurrent syncope Surgical history unknown HTN (hypertension) (Chronic) Diabetes (Chronic) Hyperlipidemia (Chronic) CVA (cerebral infarction) (Acute 2016) Colitis Syncope (Acute 2016) Medical History APRIL (acute kidney injury) Diabetic foot ulcer CKD (chronic kidney disease) APRIL (acute kidney injury) Elevated troponin HHNC (hyperglycemic hyperosmolar nonketotic coma) Orthostatic hypotension (2016) Anemia Surgical History S/P craniotomy Family History Other Family history non-contributory Social History Smoking Status: Never smoker Tobacco Type: Cigarettes Age Started Using Tobacco: 13; packs per day: 0.5; Second Hand Exposure: No; Do You Dip or Chew Tobacco: No; Hx Alcohol Use: No Hx Substance Use: No Preferred Language: Thai Communication Ability: Effective Wood Cutter Required: No Beliefs That Will Affect Care: None marital status: Current Living Situation: Other Current Living Situation Comment: correctional facility current occupational status: unemployed Feels Safe at Home: Yes Assistive Devices: None Allergies Allergies Allergy/AdvReac Type Severity Reaction Status Date / Time No Known Allergies Allergy Verified 09/09/24 13:22 Home Meds Home Medications Medication Instructions Recorded Confirmed docusate sodium 100 mg tablet 100 mg PO BID PRN Constipation 10/18/20 09/09/24 etanercept 50 mg/mL (1 mL) 50 mg subcut WK 10/18/20 09/09/24 subcutaneous syringe (Enbrel) folic acid 1 mg tablet 1 mg PO DAILY 10/18/20 09/09/24 hydroxychloroquine 200 mg tablet 200 mg PO DAILY 10/18/20 09/09/24 nortriptyline 25 mg capsule 25 mg PO BID 10/18/20 09/09/24 amlodipine 10 mg tablet 10 mg PO DAILY 10/05/22 09/09/24 atorvastatin 10 mg tablet 10 mg PO DAILY 10/05/22 09/09/24 albuterol sulfate 90 mcg/actuation 2 puff inhalation QID PRN 03/12/23 09/09/24 aerosol inhaler Shortness Of Breath glucose 4 gram chewable tablet See Rx Instructions .Route 03/12/23 09/09/24 .COMPLEX PRN HYPOGLYCLEMIA cyanocobalamin (vitamin B-12) 500 500 mcg PO DAILY 02/10/24 09/09/24 mcg tablet insulin NPH isoph U-100 human 100 18 unit subcut QPM 02/10/24 09/09/24 unit/mL (3 mL) subcutaneous pen (Novolin N FlexPen) insulin NPH isoph U-100 human 100 20 unit subcut QAM 02/10/24 09/09/24 unit/mL (3 mL) subcutaneous pen (Novolin N FlexPen) insulin regular human 100 unit/mL 0 sliding scale dose subcut UD PRN 02/10/24 09/09/24 (3 mL) subcutaneous pen (Novolin R Hyperglycemia FlexPen) insulin regular human 100 unit/mL 10 unit subcut BIDWMEAL 02/10/24 09/09/24 (3 mL) subcutaneous pen (Novolin R FlexPen) furosemide 20 mg tablet 20 mg PO DAILY 09/09/24 09/09/24 glucagon HCl 1 mg solution for 1 mg subcut DAILY PRN Hypoglycemia 09/09/24 09/09/24 injection (Glucagon (HCl) Emergency Kit) metformin 500 mg tablet 500 mg PO BID 09/09/24 09/09/24 valsartan 80 mg tablet 80 mg PO DAILY 09/09/24 09/09/24 Results & Data (ED) Vital Signs Vital Signs - 24 hr 09/09/24 09:08 09/09/24 10:24 09/09/24 10:24 Temperature 36.2 C L Temperature Source Temporal Artery Scan Pulse Rate 69 67 Pulse Rate [Apical] 68 Respiratory Rate 18 17 Respiratory Effort / Characteristics Non-Labored Spontaneous Non-Labored Spontaneous Respiratory Depth Normal Normal Respiratory Pattern Regular Blood Pressure 161/88 H Blood Pressure [Right Arm] 159/83 H Blood Pressure Mean 112 Blood Pressure Mean [Right Arm] 108 Blood Pressure Position [Right Arm] Lying Pulse Oximetry 100 96 Oxygen Delivery Method Room Air Room Air Sepsis Recent Fever Within 48 Hours No Sepsis New/Unexplained Change in Mental Status No Sepsis Action Taken by Nursing No Action Required 09/09/24 11:10 09/09/24 13:07 09/09/24 13:58 Temperature Temperature Source Pulse Rate Pulse Rate [Apical] 66 66 67 Respiratory Rate 12 16 16 Respiratory Effort / Characteristics Respiratory Depth Respiratory Pattern Blood Pressure Blood Pressure [Right Arm] 169/87 H 165/101 H 165/101 H Blood Pressure Mean Blood Pressure Mean [Right Arm] 114 122 122 Blood Pressure Position [Right Arm] Lying Pulse Oximetry 96 99 100 Oxygen Delivery Method Room Air Sepsis Recent Fever Within 48 Hours Sepsis New/Unexplained Change in Mental Status Sepsis Action Taken by Nursing 09/09/24 14:31 Temperature Temperature Source Pulse Rate 68 Pulse Rate [Apical] Respiratory Rate Respiratory Effort / Characteristics Respiratory Depth Respiratory Pattern Blood Pressure Blood Pressure [Right Arm] Blood Pressure Mean Blood Pressure Mean [Right Arm] Blood Pressure Position [Right Arm] Pulse Oximetry Oxygen Delivery Method Sepsis Recent Fever Within 48 Hours Sepsis New/Unexplained Change in Mental Status Sepsis Action Taken by Prison Medications Current Medication List: was personally reviewed by me Laboratory Data Attestation: I reviewed the patient's lab results. 09/09/24 10:01 09/09/24 10:01 Lab Results 09/09/24 09/09/24 09/09/24 Range/Units 10:01 11:03 11:30 WBC 5.68 (4.8-10.8) K/ul RBC 4.39 L (4.70-6.10) M/uL Hgb 12.6 L (14.0-18.0) g/dl Hct 38.5 L (42.0-52.0) % MCV 87.7 (80.0-100.0) fL MCH 28.7 (25.0-34.0) pg MCHC 32.7 (32.0-36.0) g/dL RDW Std Deviation 44.1 (36.4-46.3) fL RDW Coeff of Vidal 13.7 (11.5-14.5) % Plt Count 284 (130-400) K/uL MPV 10.7 (9.4-12.4) fL Immature Gran % (Auto) 0.2 % Neut % (Auto) 37.4 % Lymph % (Auto) 43.0 % Rincon % (Auto) 10.9 % Eos % (Auto) 7.4 % Baso % (Auto) 1.1 % Neut # (Auto) 2.13 (1.40-6.50) K/uL Lymph # (Auto) 2.44 (1.20-3.40) K/uL Rincon # (Auto) 0.62 H (0.11-0.59) K/uL Eos # (Auto) 0.42 (0.00-0.50) K/uL Baso # (Auto) 0.06 (0.00-0.20) K/uL Immature Gran # (Auto) 0.01 (0.01-0.20) K/uL Sodium 136 (136-145) mmol/L Potassium 4.1 (3.5-5.1) mmol/L Chloride 104 (98-107) mmol/L Carbon Dioxide 27 (21-32) mmol/L Anion Gap 5 (3-11) BUN 24 H (6-23) mg/dl Creatinine 1.53 H (0.6-1.4) mg/dl Est Cr Clr Drug Dosing 47.2 ml/min eGFR 48.30 BUN/Creatinine Ratio 15.7 (10-20) Glucose 27 L* (70-99(Fasting)) mg/dl POC Glucose 24 L* 80 (70-99) mg/dl Lactate 1.3 (0.4-2.0) mmol/L Calcium 9.7 (8.6-10.3) mg/dl Magnesium 1.7 (1.7-2.4) mg/dl Total Bilirubin 0.5 (0.2-1.0) mg/dl AST 24 (13-39) U/L ALT 13 (7-52) U/L Alkaline Phosphatase 79 (34-104) U/L C-Reactive Protein 0.58 H (0-0.5) mg/dl Total Protein 8.9 H (6.0-8.3) gm/dl Albumin 4.1 (3.4-5.0) gm/dl Globulin 4.8 H (2.5-4.0) gm/dl Albumin/Globulin Ratio 0.9 (0.9-2) SARS-CoV-2, RNA, NAAT NEGATIVE (NEGATIVE) 09/09/24 Range/Units 15:14 WBC (4.8-10.8) K/ul RBC (4.70-6.10) M/uL Hgb (14.0-18.0) g/dl Hct (42.0-52.0) % MCV (80.0-100.0) fL MCH (25.0-34.0) pg MCHC (32.0-36.0) g/dL RDW Std Deviation (36.4-46.3) fL RDW Coeff of Vidal (11.5-14.5) % Plt Count (130-400) K/uL MPV (9.4-12.4) fL Immature Gran % (Auto) % Neut % (Auto) % Lymph % (Auto) % Rincon % (Auto) % Eos % (Auto) % Baso % (Auto) % Neut # (Auto) (1.40-6.50) K/uL Lymph # (Auto) (1.20-3.40) K/uL Rincon # (Auto) (0.11-0.59) K/uL Eos # (Auto) (0.00-0.50) K/uL Baso # (Auto) (0.00-0.20) K/uL Immature Gran # (Auto) (0.01-0.20) K/uL Sodium (136-145) mmol/L Potassium (3.5-5.1) mmol/L Chloride (98-107) mmol/L Carbon Dioxide (21-32) mmol/L Anion Gap (3-11) BUN (6-23) mg/dl Creatinine (0.6-1.4) mg/dl Est Cr Clr Drug Dosing ml/min eGFR BUN/Creatinine Ratio (10-20) Glucose (70-99(Fasting)) mg/dl POC Glucose 70 (70-99) mg/dl Lactate (0.4-2.0) mmol/L Calcium (8.6-10.3) mg/dl Magnesium (1.7-2.4) mg/dl Total Bilirubin (0.2-1.0) mg/dl AST (13-39) U/L ALT (7-52) U/L Alkaline Phosphatase (34-104) U/L C-Reactive Protein (0-0.5) mg/dl Total Protein (6.0-8.3) gm/dl Albumin (3.4-5.0) gm/dl Globulin (2.5-4.0) gm/dl Albumin/Globulin Ratio (0.9-2) SARS-CoV-2, RNA, NAAT (NEGATIVE) Administered Medications Discontinued Medications Amlodipine Besylate (Amlodipine Besylate 5 Mg Tab) 10 mg PO NOW ONE Stop: 09/09/24 13:16 Last Admin: 09/09/24 14:01 Dose: 10 mg Documented By: CYNTHIA Dextrose (Dextrose 50% 50 Ml Syringe) 25 ml IV NOW ONE Stop: 09/09/24 11:07 Last Admin: 09/09/24 11:12 Dose: 25 ml Documented By: CYNTHIA Folic Acid (Folic Acid 1 Mg Tab) 1 mg PO ONE ONE Stop: 09/09/24 13:46 Last Admin: 09/09/24 14:01 Dose: 1 mg Documented By: CYNTHIA Piperacillin Sod/Tazobactam Sod (Zosyn) 4.5 gm in 100 mls @ 200 mls/hr IV NOW ONE Stop: 09/09/24 11:57 Last Infusion: 09/09/24 12:46 Dose: Infused Documented By: Admin: 09/09/24 12:08 Dose: 200 mls/hr Documented By: CYNTHIA Daptomycin 450 mg/ Syringe 9 mls @ 4.5 mls/min IV NOW STA; Protocol Stop: 09/09/24 11:29 Last Admin: 09/09/24 12:03 Dose: 4.5 mls/min Documented By: CYNTHIA Magnesium Sulfate/Dextrose (Magnesium Sulfate / D5w) 1 gm in 100 mls @ 50 mls/hr IV ONE ONE Stop: 09/09/24 15:16 Last Admin: 09/09/24 14:01 Dose: 50 mls/hr Documented By: CYNTHIA Valsartan (Valsartan 80 Mg Tab) 80 mg PO ONE ONE Stop: 09/09/24 13:31 Last Admin: 09/09/24 14:01 Dose: 80 mg Documented By: CYNTHIA Imaging Data Radiologist's Impression: Foot CT 09/09/24 09:[address] WITHOUT CONTRAST CLINICAL HISTORY: Possible osteomyelitis of right great toe. COMPARISON STUDY: Right foot radiographs August 12, 2024. TECHNIQUE: Axial images of the right foot were obtained without IV contrast. Sagittal and coronal reformats were viewed. Automated exposure control was utilized for the study. A dose lowering technique was utilized adhering to the principles of ALARA. FINDINGS: Alignment of the right foot is anatomic. Tarsometatarsal joints are intact. There are no fractures within the right foot. A wound of the distal right first toe is present. Associated soft tissue swelling is present. There is subtle cortical erosion of the distal tuft of the right first distal phalanx. No additional sites of bony erosion are identified within the right foot although the remainder of the toes are suboptimally assessed due to artifact. There are no osseous lesions. Posterior and plantar calcaneal spurs are incidentally noted. There is mild osteoarthritis within multiple articulations of the right foot. No fluid collection is identified. There is dorsal foot soft tissue swelling. There is moderate vascular calcification. IMPRESSION: 1. Right toe wound with associated soft tissue swelling suggestive of cellulitis. Subtle erosion of the distal tuft of the right first distal phalanx suggestive of acute osteomyelitis. No additional sites of osteomyelitis within the right foot. 2. Dorsal right foot edema. No fluid collections within the right foot. No soft tissue gas. ACT 112: Negative or not required by law. Electronically signed by: Gerardo Patterson M.D. 09/09/2024 11:19 AM Discharge Plan Visit Data Chief Complaint: Wound Stated Complaint: RT BIG TOE ULCER, FLAP OF SKIN PEELING OFF TOE ED Provider: Isra Alarcon Discharge Problem: Osteomyelitis, Cellulitis, Failure of outpatient treatment, Hypoglycemia Patient Disposition: Admitted As Inpatient Condition: Fair Forms Stand Alone Forms: [facility] [email or web address] Prescriptions Prescriptions: No Action nortriptyline 25 mg Capsule 25 mg PO BID folic acid 1 mg Tablet 1 mg PO DAILY hydroxychloroquine 200 mg Tablet 200 mg PO DAILY docusate sodium 100 mg Tablet 100 mg PO BID PRN (Reason: Constipation) Enbrel 50 mg/mL (1 mL) Syringe 50 mg SUBCUT WK Rx Instructions: WEDNESDAYS atorvastatin 10 mg Tablet 10 mg PO DAILY amlodipine 10 mg Tablet 10 mg PO DAILY Rx Instructions: HOLD IF B/P IS <120/80 glucose 4 gram Tablet,Chewable See Rx Instructions .ROUTE .COMPLEX PRN (Reason: HYPOGLYCLEMIA) Rx Instructions: Glucose 3.75gm: Chew and swallow as needed for hypoglycemia albuterol sulfate 90 mcg/actuation Hfa Aerosol Inhaler 2 puff INHALATION QID PRN (Reason: Shortness Of Breath) Novolin N FlexPen 100 unit/mL (3 mL) Insulin Pen 18 unit SUBCUT QPM Novolin N FlexPen 100 unit/mL (3 mL) Insulin Pen 20 unit SUBCUT QAM Novolin R FlexPen 100 unit/mL (3 mL) Insulin Pen 0 sliding scale dose SUBCUT UD PRN (Reason: Hyperglycemia) Rx Instructions: 201-250 = 2units; 251-300 = 4units; 301-350 = 6units; 351-400 = 8units; 401- 450 = 10units; 451-500 = 12units. >500 call cyanocobalamin (vitamin B-12) 500 mcg Tablet 500 mcg PO DAILY Novolin R FlexPen 100 unit/mL (3 mL) Insulin Pen 10 unit SUBCUT BIDWMEAL metformin 500 mg Tablet 500 mg PO BID valsartan 80 mg Tablet 80 mg PO DAILY furosemide 20 mg Tablet 20 mg PO DAILY glucagon HCl [Glucagon (HCl) Emergency Kit] 1 mg Recon Soln 1 mg subcut DAILY PRN (Reason: Hypoglycemia) Referrals Referrals: [facility] [Primary Care Provider] - Discharge Problem: Osteomyelitis Qualifiers: Osteomyelitis type: other acute Osteomyelitis location: foot Laterality: right Qualified Code(s): M86.171 - Other acute osteomyelitis, right ankle and foot Cellulitis Qualifiers: Site of cellulitis: extremity Site of cellulitis of extremity: lower extremity Laterality: right Qualified Code(s): L03.115 - Cellulitis of right lower limb
[2024-09-09 10:35] LABS: Basophils # (auto) 0.06 K/uL (0.00-0.20); Basophils % (auto) 1.1 %; Eosinophils # (auto) 0.42 K/uL (0.00-0.50); Eosinophils % (auto) 7.4 %; Hematocrit (blood only) 38.5 % (42.0-52.0); Hemoglobin 12.6 g/dl (14.0-18.0); Immature Granulocytes # (auto) 0.01 K/uL (0.01-0.20); Immature Granulocytes % (auto) 0.2 %; Lymphocytes # (auto) 2.44 K/uL (1.20-3.40); Mean Corpuscular Hemoglobin 28.7 pg (25.0-34.0); Mean Corpuscular Hgb Conc 32.7 g/dL (32.0-36.0); Mean Corpuscular Volume 87.7 fL (80.0-100.0); Mean Platelet Volume 10.7 fL (9.4-12.4); Monocytes # (auto) 0.62 K/uL (0.11-0.59); Monocytes % (auto) 10.9 %; Neutrophils # (auto) 2.13 K/uL (1.40-6.50); Neutrophils % (auto) 37.4 %; Platelet Count 284 K/uL (130-400); RDW Coefficient of Variation 13.7 % (11.5-14.5); RDW Standard Deviation 44.1 fL (36.4-46.3); Red Blood Count 4.39 M/uL (4.70-6.10); White Blood Count 5.68 K/ul (4.8-10.8)
[2024-09-09 10:56] LABS: Albumin Globulin Ratio 0.9 (0.9-2); Albumin Level 4.1 gm/dl (3.4-5.0); BUN Creatinine Ratio 15.7 (10-20); Bilirubin,Total 0.5 mg/dl (0.2-1.0); Calcium 9.7 mg/dl (8.6-10.3); Creatinine Clr Calc Pharmacy 47.2 ml/min; Globulin 4.8 gm/dl (2.5-4.0); Magnesium 1.7 mg/dl (1.7-2.4); Potassium 4.1 mmol/L (3.5-5.1); Total Protein 8.9 gm/dl (6.0-8.3)
[2024-09-09] MEDS: DEXTROSE 50% 50 ML SYRINGE IV ONE (11:12)
--- NOTE | 2024-09-09 11:20 | CT Scan Report ---
RIGHT FOOT CT WITHOUT CONTRAST CLINICAL HISTORY: Possible osteomyelitis of right great toe. COMPARISON STUDY: Right foot radiographs August 12, 2024. TECHNIQUE: Axial images of the right foot were obtained without IV contrast. Sagittal and coronal ref ormats were viewed. Automated exposure control was utilized for the study. A dose lowering technique was utilized adhering to the principles of ALARA. FINDINGS: Alignment of the right foot is anatomic. Tarsometatarsal joints are intact. There are no fr actures within the right foot. A wound of the distal right first toe is present. Associated soft tiss ue swelling is present. There is subtle cortical erosion of the distal tuft of the right first distal phalanx. No additional sites of bony erosion are identified within the right foot although the remai nder of the toes are suboptimally assessed due to artifact. There are no osseous lesions. Posterior a nd plantar calcaneal spurs are incidentally noted. There is mild osteoarthritis within multiple artic ulations of the right foot. No fluid collection is identified. There is dorsal foot soft tissue swel ling. There is moderate vascular calcification. IMPRESSION: 1. Right toe wound with associated soft tissue swelling suggestive of cellulitis. Subtle erosion of t he distal tuft of the right first distal phalanx suggestive of acute osteomyelitis. No additional sit es of osteomyelitis within the right foot. 2. Dorsal right foot edema. No fluid collections within the right foot. No soft tissue gas. ACT 112: Negative or not required by law. Electronically signed by: Gerardo Patterson M.D. 09/09/2024 11:19 AM
[2024-09-09] MEDS: DAPTOmycin 450 MG in SYRINGE 0 ML IV STA (12:03)
[2024-09-09] MEDS: PIPERACILLIN/TAZOBACTAM 4.5 GM/100 ML BAG IV ONE (12:08)
--- NOTE | 2024-09-09 13:03 | History & Physical Report ---
Date of Service September 09, 2024 Assessment & Plan (1) Acute osteomyelitis of toe of right foot: (2) Type 2 diabetes mellitus with polyneuropathy: (3) HTN (hypertension): (4) Hyperlipidemia: (5) H/O: CVA (cerebrovascular accident): (6) Rheumatoid arthritis: (7) Ulcerative colitis: (8) CKD stage 3b, GFR 30-44 ml/min: Plan 69-year-old present inmate with past medical history of insulin-dependent type 2 diabetes mellitus, hypertension, history of CVA in 2017 not on aspirin, chronic diastolic congestive heart failure with preserved ejection fraction of 60%, CKD stage III, rheumatoid arthritis on Plaquenil and ulcerative colitis on weekly Enbrel, history of left first and second toe amputation secondary to osteomyelitis was recently seen in ED on 08/12/2024 for right toe ulcer and discharge from ED on Keflex plus doxycycline for 7 days with wound culture growing Pseudomonas aeruginosa and MSSA presents with worsening right toe wound with purulent discharge. Right foot CT done which showed right toe wound with associated soft tissue swelling suggestive of cellulitis, subtle erosion of the distal tuft of the right first distal phalanx to just above acute osteomyelitis. Dorsal right foot edema, no fluid collections within the right foot and no soft tissue gas noted. #Right foot/right first toe diabetic foot ulcer/osteomyelitis with cellulitis Patient is a diabetic and also on immunosuppressants Podiatry consulted: Dr. Vinh Mazariegos to see patient Patient received IV daptomycin and IV Zosyn in ED Recent wound culture from 08/12/2024 shows MSSA plus Pseudomonas aeruginosa. Patient has history of MRSA diabetic ulcer in the past Continue IV Zosyn plus IV daptomycin Check CK ID consult Wound care consult I spoke with Dr. Miranda who is kindly agreed to see the patient consultation and he is tentatively planning on amputating first and second right toe on 09/12/2024 #History of CVA #Essential hypertension #Hyperlipidemia #Chronic diastolic congestive heart failure preserved ejection fraction of 60% Echo from January 2024 shows EF of 60 to 65% with grade 1 diastolic dysfunction Patient tells me he has not been on aspirin for a year. As per patient, aspirin was stopped as he was told he does not need it anymore Patient would benefit from being on aspirin 81 mg daily: Will hold off on starting aspirin since patient is scheduled for surgery soon and this should be started postoperatively Continue statin Continue Diovan 80 mg p.o. daily Continue amlodipine 10 mg p.o. daily Switch Lasix 20 mg daily to Bumex 1 mg p.o. daily for better diuretic effect since patient is not finding any improvement with oral Lasix Check EKG Check BNP I/O monitoring Daily weights Hydralazine 25 mg p.o. 3 times daily as needed for hypertension per home dose Monitor vital signs #Insulin-dependent type 2 diabetes mellitus Check A1c Patient had episode of hypoglycemia in ED which has improved with D50 Accu-Cheks before every meal and nightly with sliding scale insulin coverage Pharmacy consult for glycemic control #CKD stage III Baseline creatinine is between 1.5-1.7 Avoid nephrotoxic agents including NSAIDs Monitor renal function and electrolytes and replace as needed #Ulcerative colitis #Rheumatoid arthritis Patient is on weekly Enbrel (every Monday) for ulcerative colitis and also takes hydroxychloroquine for rheumatoid arthritis Patient is immunosuppressed, will hold off on immunosuppressants at this point given active infection with osteomyelitis This can be resumed on discharge once infection is under better control CODE STATUS: Discussed with patient, full code DVT prophylaxis: Heparin subcutaneous History of Present Illness Chief Complaint: Right toe purulent wound Primary Care Provider: PHUONG Calle 69-year-old present inmate with past medical history of insulin-dependent type 2 diabetes mellitus, hypertension, history of CVA in 2017 not on aspirin, chronic diastolic congestive heart failure with preserved ejection fraction of 60%, CKD stage III, rheumatoid arthritis on Plaquenil and ulcerative colitis on weekly Enbrel, history of left first and second toe amputation secondary to osteomyelitis was recently seen in ED on 08/12/2024 for right toe ulcer and discharge from ED on Keflex plus doxycycline for 7 days with wound culture growing Pseudomonas aeruginosa and MSSA presents with worsening right toe wound with purulent discharge. Patient had lab work done in ED which showed lactate of 1.3, white count of 5.68, creatinine of 1.53 and glucose of [address] done which showed right toe wound with associated soft tissue swelling suggestive of cellulitis, subtle erosion of the distal tuft of the right first distal phalanx to just above acute osteomyelitis. Dorsal right foot edema, no fluid collections within the right foot and no soft tissue gas noted. In ED: Patient received D50 for blood glucose of 27 with improvement in blood glucose. He was also given IV Zosyn and IV daptomycin and hospital service was called for admission Patient denies any fever, chills, headache, dizziness, lightheadedness, chest pain, shortness of breath, nausea, vomiting, diarrhea, abdominal pain. He does endorse bilateral lower extremity edema which has been chronic for almost a year. Patient tells me he had a stroke in 2017 and aspirin was stopped about a year ago and he was told he does not need aspirin anymore. He denies any bleeding issues. Patient is on Lasix 20 mg daily but does not feel it helps much with his leg edema Labs, radiology reviewed Social history: Patient states he quit tobacco smoking 5 years ago. Patient denies alcohol use. Patient endorses past drug use of marijuana only. Denies IV drug use Family history: Patient tells me his mother of COPD. Patient does not recall father's medical issues Allergies Allergy/AdvReac Type Severity Reaction Status Date / Time No Known Allergies Allergy Verified 09/09/24 13:22 Home Medications Medication Instructions Recorded Confirmed Type docusate sodium 100 mg tablet 100 mg PO BID PRN Constipation 10/18/20 09/09/24 History etanercept 50 mg/mL (1 mL) 50 mg subcut WK 10/18/20 09/09/24 History subcutaneous syringe (Enbrel) folic acid 1 mg tablet 1 mg PO DAILY 10/18/20 09/09/24 History hydroxychloroquine 200 mg tablet 200 mg PO DAILY 10/18/20 09/09/24 History nortriptyline 25 mg capsule 25 mg PO BID 10/18/20 09/09/24 History amlodipine 10 mg tablet 10 mg PO DAILY 10/05/22 09/09/24 History atorvastatin 10 mg tablet 10 mg PO DAILY 10/05/22 09/09/24 History albuterol sulfate 90 mcg/actuation 2 puff inhalation QID PRN 03/12/23 09/09/24 History aerosol inhaler Shortness Of Breath glucose 4 gram chewable tablet See Rx Instructions .Route 03/12/23 09/09/24 History .COMPLEX PRN HYPOGLYCLEMIA cyanocobalamin (vitamin B-12) 500 500 mcg PO DAILY 02/10/24 09/09/24 History mcg tablet insulin NPH isoph U-100 human 100 18 unit subcut QPM 02/10/24 09/09/24 History unit/mL (3 mL) subcutaneous pen (Novolin N FlexPen) insulin NPH isoph U-100 human 100 20 unit subcut QAM 02/10/24 09/09/24 History unit/mL (3 mL) subcutaneous pen (Novolin N FlexPen) insulin regular human 100 unit/mL 0 sliding scale dose subcut UD PRN 02/10/24 09/09/24 History (3 mL) subcutaneous pen (Novolin R Hyperglycemia FlexPen) insulin regular human 100 unit/mL 10 unit subcut BIDWMEAL 02/10/24 09/09/24 History (3 mL) subcutaneous pen (Novolin R FlexPen) furosemide 20 mg tablet 20 mg PO DAILY 09/09/24 09/09/24 History glucagon HCl 1 mg solution for 1 mg subcut DAILY PRN Hypoglycemia 09/09/24 09/09/24 History injection (Glucagon (HCl) Emergency Kit) metformin 500 mg tablet 500 mg PO BID 09/09/24 09/09/24 History valsartan 80 mg tablet 80 mg PO DAILY 09/09/24 09/09/24 History Past Med/Surg History Problem List (Updated 09/09/24 @ 13:46 by Glen Galan MD) CKD stage 3b, GFR 30-44 ml/min Ulcerative colitis H/O: CVA (cerebrovascular accident) Acute osteomyelitis of toe of right foot Vocal cord anomaly Rheumatoid arthritis Head injury (Acute) Orthostatic hypotension (Acute) Type 2 diabetes mellitus with polyneuropathy Diabetic ulcer of left foot associated with diabetes mellitus due to underlying condition, with necrosis of bone Cellulitis of foot, left (Acute) Type 2 diabetes mellitus Right lower lobe pneumonia (Acute) SOB (shortness of breath) (Acute) Acute hyperkalemia (Acute) Orthostatic hypotension Recurrent syncope Surgical history unknown HTN (hypertension) (Chronic) Diabetes (Chronic) Hyperlipidemia (Chronic) CVA (cerebral infarction) (Acute 2015) Colitis Syncope (Acute 2016) Medical History APRIL (acute kidney injury) Diabetic foot ulcer CKD (chronic kidney disease) APRIL (acute kidney injury) Elevated troponin HHNC (hyperglycemic hyperosmolar nonketotic coma) Orthostatic hypotension (2016) Anemia Surgical History S/P craniotomy Family History Other Family history non-contributory Social History Smoking Status: Never smoker Tobacco Type: Cigarettes Age Started Using Tobacco: 13; packs per day: 0.5; Second Hand Exposure: No; Do You Dip or Chew Tobacco: No; Hx Alcohol Use: No Hx Substance Use: No Preferred Language: Amharic Communication Ability: Effective 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 In 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 Required: No Beliefs That Will Affect Care: None marital status: Current Living Situation: Other Current Living Situation Comment: correctional facility current occupational status: unemployed Feels Safe at Home: Yes Assistive Devices: None Review of Systems Review of Systems: All 12 systems have been reviewed and are either negative or noted in HPI Physical Exam Physical Exam: General: No acute distress Psych: Awake and alert, oriented to place person and time HEENT: Anicteric sclera, moist oral mucosa CVS: Regular rate and rhythm Lungs: Bilateral air entry, no wheezing noted Abdomen: Soft, nontender, no rebound, no guarding Ext: Bilateral lower extremity 1+ pitting edema, no calf tenderness, right big toe purulent discharge noted with surrounding erythema, nontender to palpation, right second toe eschar noted Neuro: No focal motor deficits noted, patient able to move all 4 extremities Results & Data Results & Data Vital Signs (Past 12 Hours) Vital Signs Temp Pulse Pulse Resp BP BP Pulse Ox 09/09/24 11:10 66 12 169/87 H 96 09/09/24 10:24 68 17 159/83 H 96 09/09/24 10:24 67 09/09/24 09:08 36.2 C L 69 18 161/88 H 100 O2 Del Method 09/09/24 11:10 09/09/24 10:24 Room Air 09/09/24 10:24 09/09/24 09:08 Room Air Laboratory Results Laboratory Results - last 24 hr 09/09/24 09/09/24 09/09/24 10:01 11:03 11:30 WBC 5.68 RBC 4.39 L Hgb 12.6 L Hct 38.5 L MCV 87.7 MCH 28.7 MCHC 32.7 RDW Std Deviation 44.1 RDW Coeff of [place] 13.7 Plt Count 284 MPV 10.7 Immature Gran % (Auto) 0.2 Neut % (Auto) 37.4 Lymph % (Auto) 43.0 [place] % (Auto) 10.9 Eos % (Auto) 7.4 Baso % (Auto) 1.1 Neut # (Auto) 2.13 Lymph # (Auto) 2.44 [place] # (Auto) 0.62 H Eos # (Auto) 0.42 Baso # (Auto) 0.06 Immature Gran # (Auto) 0.01 Sodium 136 Potassium 4.1 Chloride 104 Carbon Dioxide 27 Anion Gap 5 BUN 24 H Creatinine 1.53 H Est Cr Clr Drug Dosing 47.2 eGFR 48.30 BUN/Creatinine Ratio 15.7 Glucose 27 L* POC Glucose 24 L* 80 Lactate 1.3 Calcium 9.7 Magnesium 1.7 Total Bilirubin 0.5 AST 24 ALT 13 Alkaline Phosphatase 79 Total Protein 8.9 H Albumin 4.1 Globulin 4.8 H Albumin/Globulin Ratio 0.9 SARS-CoV-2, RNA, NAAT NEGATIVE Diagnostic Findings Foot CT 09/09/24 09:[address] WITHOUT CONTRAST CLINICAL HISTORY: Possible osteomyelitis of right great toe. COMPARISON STUDY: Right foot radiographs August 12, 2024. TECHNIQUE: Axial images of the right foot were obtained without IV contrast. Sagittal and coronal reformats were viewed. Automated exposure control was utilized for the study. A dose lowering technique was utilized adhering to the principles of ALARA. FINDINGS: Alignment of the right foot is anatomic. Tarsometatarsal joints are intact. There are no fractures within the right foot. A wound of the distal right first toe is present. Associated soft tissue swelling is present. There is subtle cortical erosion of the distal tuft of the right first distal phalanx. No additional sites of bony erosion are identified within the right foot although the remainder of the toes are suboptimally assessed due to artifact. There are no osseous lesions. Posterior and plantar calcaneal spurs are incidentally noted. There is mild osteoarthritis within multiple articulations of the right foot. No fluid collection is identified. There is dorsal foot soft tissue swelling. There is moderate vascular calcification. IMPRESSION: 1. Right toe wound with associated soft tissue swelling suggestive of cellulitis. Subtle erosion of the distal tuft of the right first distal phalanx suggestive of acute osteomyelitis. No additional sites of osteomyelitis within the right foot. 2. Dorsal right foot edema. No fluid collections within the right foot. No soft tissue gas. ACT 112: Negative or not required by law. Electronically signed by: Gerardo Patterosn M.D. 09/09/2024 11:19 AM ECG Additional Comments: Not done in ED, ordered PG Care Time/CCT Total # of Minutes Spent Total Time Spent with Patient: Total time spent is greater than 50% in coordination of care (as documented) at patient's floor/unit and/or counseling patient: Coding Level of Care Code 23892 INT INP/OBS CARE 3/75MIN Diagnoses Acute osteomyelitis of toe of right foot M86.171 Type 2 diabetes mellitus with polyneuropathy E11.42 HTN (hypertension) I10 Hypertension type: unspecified Hyperlipidemia, unspecified hyperlipidemia type E78.5 Hyperlipidemia type: unspecified H/O: CVA (cerebrovascular accident) Z86.73 Rheumatoid arthritis M06.9 Ulcerative colitis K51.90 CKD stage 3b, GFR 30-44 ml/min N18.32 (3) HTN (hypertension) Hypertension type: unspecified Qualified Code(s): I10 - Essential (primary) hypertension (4) Hyperlipidemia Hyperlipidemia type: unspecified Qualified Code(s): E78.5 - Hyperlipidemia, unspecified
[2024-09-09] MEDS ORDERED: PHARMACY GLYCEMIC MGMT CONSULT PRN (13:04)
[2024-09-09] MEDS ORDERED: GLUCOSE 40% GEL 15 GM TUBE PO PRN (13:06)
[2024-09-09] MEDS ORDERED: GLUCOSE 10 TAB/TUBE PO PRN (13:06)
[2024-09-09] MEDS ORDERED: GLUCAGON FOR INJ 1 MG VIAL SQ PRN (13:06)
[2024-09-09] MEDS ORDERED: DEXTROSE 50% 50 ML SYRINGE IV PRN (13:06)
[2024-09-09] MEDS ORDERED: hydrALAZINE HCL 25 MG TAB PO PRN (13:59)
[2024-09-09] MEDS: amLODIPine BESYLATE 5 MG TAB PO ONE (14:01)
[2024-09-09] MEDS: VALSARTAN 80 MG TAB PO ONE (14:01)
[2024-09-09] MEDS: MAGNESIUM SULFATE / D5W 1 GM/100 ML BAG IV ONE (14:01)
[2024-09-09] MEDS: FOLIC ACID 1 MG TAB PO ONE (14:01)
[2024-09-09 14:31] LABS: C Reactive Protein 0.58 mg/dl (0-0.5)
--- NOTE | 2024-09-09 14:46 | Pharmacy Report ---
Pharmacy Glycemic Short Note 2 - Date of Service September 09, 2024 - Glycemic Short BSG Results (Last 24 hours): 09/09/24 09/09/24 09/09/24 10:01 11:03 11:30 Glucose 27 L* POC Glucose 24 L* 80 OUTPATIENT ANTIDIABETIC REGIMEN: * NPH 20 units SQ qAM, 18 units SQ qPM * Novolin R 10 units BID with meals and SS * Metformin 500mg po bid HbA1c ordered for 09/10 with morning labs ASSESSMENT: * 69 year old male to be admitted today via the ED for a worsening right toe wound with purulent discharge. (Found on CT to be osteomyelitis with cellulitis). He was started on daptomycin and zosyn. Pharmacy was consulted for glycemic management while he is admitted * Patient has history of HHNC as well as stage III CKD (baseline SCr between 1.5 and 1.7). * Patient had an episode of hypoglycemia in the ED this morning--BSG of 27mg/dL which improved to 80mg/dL after receiving 25ml of D50. Because of this, basal insulin will be held for now. Conservative bolus insulin will be ordered--Loose CF and no CR for now until patient is eating and BSGs have improved. * He will be followed closely and insulin will be adjusted as needed. PLAN FOR INPATIENT GLYCEMIC CONTROL: * Hold outpatient diabetes medications * Basal insulin * hold for now * Bolus insulin * NovoLog per scale ACHS or Q6hrs while NPO * Goal Range: Low 120 mg/dL - High 150 mg/dL * Correction Factor: 30 mg/dL/unit * Nutritional / Prandial insulin per carb ratio: no coverage for now
[2024-09-09] MEDS: INSULIN ASPART PER UNIT CHARGE SC SCH (15:48)
--- NOTE | 2024-09-09 16:24 | Infectious Disease Consult ---
Date of Consultation September 09, 2024 Assessment & Plan (1) Cellulitis: (2) Acute osteomyelitis of toe of right foot: (3) Type 2 diabetes mellitus with polyneuropathy: (4) Failure of outpatient treatment: Plan 69yo M inmate with h/o IDDM, h/o CVA in 2017, HFpEF, CKD III, rheumatoid arthritis on plaquenil, UC on weekly Enbrel, h/o left first and second toe OM 08/2023 s/p left first and 2nd toe amp (cx MRSA and Bacteroides, tx with doxy/augmentin x 7d postop), recent ED visit 08/12/24 with ulcers on toes 1-3 (no leukocytosis, XR neg for OM, dcd from ED on doxycycline x 7 days, seen in ED 08/17 with RLE edema and ulcers (dcd on Keflex x 7d, WCX returned with PsA and MSSA) who presented on 09/09 with worsening right toe wound with purulent discharge. Has chronic bl lower extremity edema. Here, he was afebrile, vss. WBC 5.68, Cr 1.53, AST/ALT wnl. Lactate wnl. CRP 0.58. COVID neg. CT right foot with right toe wound with associated soft tissue swelling c/f cellulitis, subtle erosion of distal tuft of right first distal phalanx c/f acute OM, no additional sites of OM in the right foot, dorsal right foot edema, no fluid collections within the right foot. He has been started on daptomycin and zosyn. Planned for amputation. ID consulted 09/09. He is hemodynamically stable, noted cellulitis and purulent drainage per chart. Awaiting amputation. # OM of distal tuft of right first distal phalanx # Cellulitis # Type 2 DM # CKD III # RA and UC on plaquenil and Enbrel - f/u wound cx - if any fevers, send blood cx - can continue on daptomycin and zosyn given prior cx, cellulitis and immunosuppression - f/u amputation please send cx and proximal margin path ID will continue to follow. If questions or concerns, contact via [employer] or Infectious Disease Call Center . Alea Fischer MD [facility], Division of Infectious Diseases Consultation Information This patient recommendation is based on a telemedicine consult request which was completed asynchronously through chart review and information provided by the primary physician. The patient was not seen or examined today. The evaluation is consultative in nature and all patient care and treatment decisions can either be accepted or rejected by the patient's primary hospital-based treating physician using their own independent medical judgment for their patient. Client Service Manager contact information: Please call [facility] Call Center [phone]. (Phone Number For Physician Use Only) Time Spent Reviewing Chart: 31+ minutes History of Present Illness Reason for Consultation: right foot OM Attending Physician: Glen Galan MD History of Present Illness 69yo M inmate with h/o IDDM, h/o CVA in 2017, HFpEF, CKD III, rheumatoid arthritis on plaquenil, UC on weekly Enbrel, h/o left first and second toe OM 08/2023 s/p left first and 2nd toe amp (cx MRSA and Bacteroides, tx with doxy/augmentin x 7d postop), recent ED visit 08/12/24 with ulcers on toes 1-3 (no leukocytosis, XR neg for OM, dcd from ED on doxycycline x 7 days, seen in ED 08/17 with RLE edema and ulcers (dcd on Keflex x 7d, WCX returned with PsA and MSSA) who presented on 09/09 with worsening right toe wound with purulent discharge. Denied any fever, chest pain, SOB, n/v/d, abdominal pain. Has chronic bl lower extremity edema. Here, he was afebrile, vss. WBC 5.68, Cr 1.53, AST/ALT wnl. Lactate wnl. CRP 0.58. COVID neg. CT right foot with right toe wound with associated soft tissue swelling c/f cellulitis, subtle erosion of distal tuft of right first distal phalanx c/f acute OM, no additional sites of OM in the right foot, dorsal right foot edema, no fluid collections within the right foot. He has been started on daptomycin and zosyn. Planned for amputation. ID consulted 09/09. No telepresenter at this time. Allergies Allergy/AdvReac Type Severity Reaction Status Date / Time No Known Allergies Allergy Verified 09/09/24 13:22 Home Medications Medication Instructions Recorded Confirmed Type docusate sodium 100 mg tablet 100 mg PO BID PRN Constipation 10/18/20 09/09/24 History etanercept 50 mg/mL (1 mL) 50 mg subcut WK 10/18/20 09/09/24 History subcutaneous syringe (Enbrel) folic acid 1 mg tablet 1 mg PO DAILY 10/18/20 09/09/24 History hydroxychloroquine 200 mg tablet 200 mg PO DAILY 10/18/20 09/09/24 History nortriptyline 25 mg capsule 25 mg PO BID 10/18/20 09/09/24 History amlodipine 10 mg tablet 10 mg PO DAILY 10/05/22 09/09/24 History atorvastatin 10 mg tablet 10 mg PO DAILY 10/05/22 09/09/24 History albuterol sulfate 90 mcg/actuation 2 puff inhalation QID PRN 03/12/23 09/09/24 History aerosol inhaler Shortness Of Breath glucose 4 gram chewable tablet See Rx Instructions .Route 03/12/23 09/09/24 History .COMPLEX PRN HYPOGLYCLEMIA cyanocobalamin (vitamin B-12) 500 500 mcg PO DAILY 02/10/24 09/09/24 History mcg tablet insulin NPH isoph U-100 human 100 18 unit subcut QPM 02/10/24 09/09/24 History unit/mL (3 mL) subcutaneous pen (Novolin N FlexPen) insulin NPH isoph U-100 human 100 20 unit subcut QAM 02/10/24 09/09/24 History unit/mL (3 mL) subcutaneous pen (Novolin N FlexPen) insulin regular human 100 unit/mL 0 sliding scale dose subcut UD PRN 02/10/24 09/09/24 History (3 mL) subcutaneous pen (Novolin R Hyperglycemia FlexPen) insulin regular human 100 unit/mL 10 unit subcut BIDWMEAL 02/10/24 09/09/24 History (3 mL) subcutaneous pen (Novolin R FlexPen) furosemide 20 mg tablet 20 mg PO DAILY 09/09/24 09/09/24 History glucagon HCl 1 mg solution for 1 mg subcut DAILY PRN Hypoglycemia 09/09/24 09/09/24 History injection (Glucagon (HCl) Emergency Kit) metformin 500 mg tablet 500 mg PO BID 09/09/24 09/09/24 History valsartan 80 mg tablet 80 mg PO DAILY 09/09/24 09/09/24 History Patient History Medical History APRIL (acute kidney injury) Diabetic foot ulcer CKD (chronic kidney disease) APRIL (acute kidney injury) Elevated troponin HHNC (hyperglycemic hyperosmolar nonketotic coma) Orthostatic hypotension (2016) Anemia Surgical History S/P craniotomy Family History Other Family history non-contributory Social History Smoking Status: Never smoker Tobacco Type: Cigarettes Age Started Using Tobacco: 13; packs per day: 0.5; Second Hand Exposure: No; Do You Dip or Chew Tobacco: No; Hx Alcohol Use: No Hx Substance Use: No Preferred Language: Kittitian Communication Ability: Effective Print Producer Required: No Beliefs That Will Affect Care: None marital status: Current Living Situation: Other Current Living Situation Comment: correctional facility current occupational status: unemployed Feels Safe at Home: Yes Assistive Devices: None Results & Data Vital Signs (Past 12 Hours) Vital Signs Temp Pulse Pulse Resp BP BP Pulse Ox 09/09/24 15:53 68 18 100 09/09/24 15:00 68 18 136/82 100 09/09/24 14:31 68 09/09/24 13:58 67 16 165/101 H 100 09/09/24 13:07 66 16 165/101 H 99 09/09/24 11:10 66 12 169/87 H 96 09/09/24 10:24 68 17 159/83 H 96 09/09/24 10:24 67 09/09/24 09:08 36.2 C L 69 18 161/88 H 100 O2 Del Method 09/09/24 15:53 Room Air 09/09/24 15:00 Room Air 09/09/24 14:31 09/09/24 13:58 Room Air 09/09/24 13:07 09/09/24 11:10 09/09/24 10:24 Room Air 09/09/24 10:24 09/09/24 09:08 Room Air Laboratory Results Labs reviewed. Diagnostic Findings Imaging reviewed. (1) Cellulitis Laterality: right Site of cellulitis: extremity Site of cellulitis of extremity: lower extremity Qualified Code(s): L03.115 - Cellulitis of right lower limb
[2024-09-09] MEDS: PIPERACILLIN/TAZOBACTAM 4.5 GM/100 ML BAG IV SCH (17:09)
--- NOTE | 2024-09-09 17:09 | Podiatry Consultation ---
Date of Consultation September 09, 2024 Assessment & Plan (1) Osteomyelitis: Laterality: right Osteomyelitis location: foot Osteomyelitis type: other acute Qualified Code(s): M86.171 - Other acute osteomyelitis, right ankle and foot (2) Acute osteomyelitis of toe of right foot: (3) Type 2 diabetes mellitus with polyneuropathy: (4) Diabetic ulcer of left foot associated with diabetes mellitus due to underlying condition, with necrosis of bone: Diabetic foot ulcer location: toe Qualified Code(s): E08.621 - Diabetes mellitus due to underlying condition with foot ulcer; L97.524 - Non- pressure chronic ulcer of other part of left foot with necrosis of bone (5) Diabetes mellitus with peripheral angiopathy with gangrene: Diabetes mellitus type: type 2 Diabetes mellitus custodial insulin use: without rn long term care use Qualified Code(s): E11.52 - Type 2 diabetes mellitus with diabetic peripheral angiopathy with gangrene Plan - Pt examined in ED at urgent request of ED physician based on CT and clinical exam findings. - Distal phalanx of great toe very clinically evident, acute osteomyelitis diagnosed based purely on these exam findings, with the benefit of confirmation on CT. - Right distal second toe also necrotic non-viable. - Will benefit from and is amenable to distal amputations of the first and second toes. - Will add on to schedule for morning. - I will be out of town next week, so would require hospitalist team assistance regarding care from Monday until his discharge after surgery. While we appreciate consults and being included inpatient care, Our practice is not associated credentialed with the [facility] healthcare system. As such, we will Not be able to take these specific consults on a regular basis. Because of the urgency of the emergency physician seeking care, I simply did not want to refuse helping him and the patient. History of Present Illness Reason for Consultation: Right hallux osteomyelitis Attending Physician: Glen Galan MD History of Present Illness patient wass seen in the emergency department. He is a inmate at the local present. He was seen with the assisted guards present. Allergies Allergy/AdvReac Type Severity Reaction Status Date / Time No Known Allergies Allergy Verified 09/09/24 13:22 Home Medications Medication Instructions Recorded Confirmed Type docusate sodium 100 mg tablet 100 mg PO BID PRN Constipation 10/18/20 09/09/24 History etanercept 50 mg/mL (1 mL) 50 mg subcut WK 10/18/20 09/09/24 History subcutaneous syringe (Enbrel) folic acid 1 mg tablet 1 mg PO DAILY 10/18/20 09/09/24 History hydroxychloroquine 200 mg tablet 200 mg PO DAILY 10/18/20 09/09/24 History nortriptyline 25 mg capsule 25 mg PO BID 10/18/20 09/09/24 History amlodipine 10 mg tablet 10 mg PO DAILY 10/05/22 09/09/24 History atorvastatin 10 mg tablet 10 mg PO DAILY 10/05/22 09/09/24 History albuterol sulfate 90 mcg/actuation 2 puff inhalation QID PRN 03/12/23 09/09/24 History aerosol inhaler Shortness Of Breath glucose 4 gram chewable tablet See Rx Instructions .Route 03/12/23 09/09/24 History .COMPLEX PRN HYPOGLYCLEMIA cyanocobalamin (vitamin B-12) 500 500 mcg PO DAILY 02/10/24 09/09/24 History mcg tablet insulin NPH isoph U-100 human 100 18 unit subcut QPM 02/10/24 09/09/24 History unit/mL (3 mL) subcutaneous pen (Novolin N FlexPen) insulin NPH isoph U-100 human 100 20 unit subcut QAM 02/10/24 09/09/24 History unit/mL (3 mL) subcutaneous pen (Novolin N FlexPen) insulin regular human 100 unit/mL 0 sliding scale dose subcut UD PRN 02/10/24 09/09/24 History (3 mL) subcutaneous pen (Novolin R Hyperglycemia FlexPen) insulin regular human 100 unit/mL 10 unit subcut BIDWMEAL 02/10/24 09/09/24 History (3 mL) subcutaneous pen (Novolin R FlexPen) furosemide 20 mg tablet 20 mg PO DAILY 09/09/24 09/09/24 History glucagon HCl 1 mg solution for 1 mg subcut DAILY PRN Hypoglycemia 09/09/24 09/09/24 History injection (Glucagon (HCl) Emergency Kit) metformin 500 mg tablet 500 mg PO BID 09/09/24 09/09/24 History valsartan 80 mg tablet 80 mg PO DAILY 09/09/24 09/09/24 History Patient History Medical History APRIL (acute kidney injury) Diabetic foot ulcer CKD (chronic kidney disease) APRIL (acute kidney injury) Elevated troponin HHNC (hyperglycemic hyperosmolar nonketotic coma) Orthostatic hypotension (2016) Anemia Surgical History S/P craniotomy Family History Other Family history non-contributory Social History Smoking Status: Former smoker Tobacco Type: Cigarettes Age Started Using Tobacco: 13; packs per day: 0.5; Second Hand Exposure: No; Do You Dip or Chew Tobacco: No; Hx Alcohol Use: No Hx Substance Use: No Preferred Language: [place] Communication Ability: Effective Mobile Lab Technician Required: No Beliefs That Will Affect Care: None marital status: Current Living Situation: Other Current Living Situation Comment: [facility] current occupational status: unemployed Feels Safe at Home: Yes Assistive Devices: None Review of Systems Review of Systems: All systems reviewed & are unremarkable except as noted in HPI & below Constitutional: no fever, no chills and no fatigue Eyes: no problem reported Ear, Nose, Mouth, Throat: no problem reported Respiratory: no problem reported Cardiovascular: + edema; no problem reported Gastrointestinal: no nausea, no vomiting and no problem reported Musculoskeletal: no problem reported Integumentary: + non-healing lesions, + skin ulcer, + w ounds and + erythema Neurologic: + loss of sensation, + numbness and + pa resthesia; no generalized weakness Psychiatric: no problem reported Physical Exam Physical Exam: Lower extremity focused exam: DP/PT pulses 1/4 bilaterally. CFT is brisk to the digits, except for the right first and second toes. There is delayed refill time on the hallux and absent to the tip of the second toe. At the tip off the hallux, the distal phalanx was immediately visible and palpable, eroded through the cortical bone with cancellous tuft bone easily noted. The tip of the second is a large area of eschar, which appears more necrotic in appearance than a superficial scab. No pain is noted on palpation of the toes with diminished touch and protective sensation noted to the bilateral lower extrremity overall. Muscle strength is equal and full bilaterally. Constitutional: WD/WN, vitals as above + ill appearing and average body habitus Eyes: PERRL, conjunctivae normal, anicteric sclerae ENMT: external ear and nose normal, oropharynx normal Mouth: + poor dentition Neck: trachea midline, no thyromegaly normal visual inspection Respiratory: normal respiratory effort; no respiratory distress Cardiovascular: Rate/Rhythm: regular rate and regular rhythm Vessels: posterior tibial pulses present and dorsalis pedis pulses present Extremities: + pedal edema; + abnormal capillary refill and no calf tenderness Pedal pulses diminished but palpable. Advancedd trophic changes noted to the skin, associated with this decrease in arterial inflow. Chest (Breasts): Chest: normal inspection of chest Gastrointestinal (Abdomen): Inspection/Auscultation: abdomen normal to inspection Percussion/Palpation: + abdomen tender and abdomen soft Musculoskeletal: no cyanosis or clubbing, extremities motor strength 5/5 Head/Neck/Chest: normocephalic and head atraumatic Extremities: extremities normal to inspection, + limited ROM of lower extremity (Ankle equinus noted, consistent with age) Bilateral and + foot abnormality Skin: + ulcer, + skin atrophy, + erythema and + nails dystrophic; no fluctulance Neurologic: awake; no focal motor deficits Psychiatric: A+Ox3, euthymic affect Results & Data Vital Signs (Past 12 Hours) Vital Signs Temp Pulse Pulse Resp BP BP Pulse Ox 09/09/24 15:53 68 18 100 09/09/24 15:00 68 18 136/82 100 09/09/24 14:31 68 09/09/24 13:58 67 16 165/101 H 100 09/09/24 13:07 66 16 165/101 H 99 09/09/24 11:10 66 12 169/87 H 96 09/09/24 10:24 68 17 159/83 H 96 09/09/24 10:24 67 09/09/24 09:08 36.2 C L 69 18 161/88 H 100 O2 Del Method 09/09/24 15:53 Room Air 09/09/24 15:00 Room Air 09/09/24 14:31 09/09/24 13:58 Room Air 09/09/24 13:07 09/09/24 11:10 09/09/24 10:24 Room Air 09/09/24 10:24 09/09/24 09:08 Room Air Diagnostic Findings CT Foot reveals acute osteomyelitis of the distal tuft of the hallux distal phalanx, with around 3mm of bone exposed at the tip of the bone, visualized on sagittal image 32, series 301. Further, suggestion of erosion of distal phalanx noted to second toe on image 25.
[2024-09-09] MEDS: HEPARIN SOD 5,000 UNIT/0.5 ML VIAL SQ SCH (20:53)
[2024-09-09] MEDS: NORTRIPTYLINE HCL 25 MG CAP PO SCH (20:54)
[2024-09-09] MEDS: MAGNESIUM OXIDE 400 MG TAB PO SCH (20:54)
[2024-09-10 07:22] LABS: Basophils # (auto) 0.05 K/uL (0.00-0.20); Basophils % (auto) 1.1 %; Eosinophils # (auto) 0.15 K/uL (0.00-0.50); Eosinophils % (auto) 3.4 %; Hematocrit (blood only) 35.9 % (42.0-52.0); Hemoglobin 11.8 g/dl (14.0-18.0); Immature Granulocytes # (auto) 0.01 K/uL (0.01-0.20); Immature Granulocytes % (auto) 0.2 %; Lymphocytes # (auto) 1.47 K/uL (1.20-3.40); Mean Corpuscular Hemoglobin 28.4 pg (25.0-34.0); Mean Corpuscular Hgb Conc 32.9 g/dL (32.0-36.0); Mean Corpuscular Volume 86.3 fL (80.0-100.0); Mean Platelet Volume 10.7 fL (9.4-12.4); Monocytes # (auto) 0.48 K/uL (0.11-0.59); Monocytes % (auto) 10.8 %; Neutrophils % (auto) 51.5 %; Platelet Count 237 K/uL (130-400); RDW Coefficient of Variation 13.5 % (11.5-14.5); Red Blood Count 4.16 M/uL (4.70-6.10); White Blood Count 4.46 K/ul (4.8-10.8)
[2024-09-10 07:36] LABS: Prothrombin Time 11.2 Seconds (9.0-12.0)
[2024-09-10 07:37] LABS: BUN Creatinine Ratio 14.8 (10-20); Calcium 8.7 mg/dl (8.6-10.3); Chol HDL Ratio 2.3 (0-5); Creatinine Clr Calc Pharmacy 48.4 ml/min; Magnesium 1.7 mg/dl (1.7-2.4); Potassium 5.3 mmol/L (3.5-5.1)
[2024-09-10 08:12] LABS: Estimated Average Glucose 212 mg/dl
[2024-09-10] MEDS: FOLIC ACID 1 MG TAB PO SCH (08:57)
[2024-09-10] MEDS: amLODIPine BESYLATE 5 MG TAB PO SCH (08:57)
[2024-09-10] MEDS: BUMETANIDE 1 MG TAB PO SCH (08:57)
[2024-09-10] MEDS: VITAMIN B COMPLEX TAB PO SCH (08:58)
[2024-09-10] MEDS ORDERED: VALSARTAN 80 MG TAB PO SCH (09:00)
[2024-09-10] MEDS: INSULIN HUMAN NPH SC SCH (09:03)
--- NOTE | 2024-09-10 09:28 | Infectious Disease Progress Nt ---
Date of Service September 10, 2024 Assessment & Plan (1) Cellulitis: (2) Acute osteomyelitis of toe of right foot: (3) Type 2 diabetes mellitus with polyneuropathy: (4) Failure of outpatient treatment: Plan 69yo M inmate with h/o IDDM, h/o CVA in 2017, HFpEF, CKD III, rheumatoid arthritis on plaquenil, UC on weekly Enbrel, h/o left first and second toe OM 08/2023 s/p left first and 2nd toe amp (cx MRSA and Bacteroides, tx with doxy/augmentin x 7d postop), recent ED visit 08/12/24 with ulcers on toes 1-3 (no leukocytosis, XR neg for OM, dcd from ED on doxycycline x 7 days, seen in ED 08/17 with RLE edema and ulcers (dcd on Keflex x 7d, WCX returned with PsA and MSSA) who presented on 09/09 with worsening right toe wound with purulent discharge. Has chronic bl lower extremity edema. Here, he was afebrile, vss. WBC 5.68, Cr 1.53, AST/ALT wnl. Lactate wnl. CRP 0.58. COVID neg. CT right foot with right toe wound with associated soft tissue swelling c/f cellulitis, subtle erosion of distal tuft of right first distal phalanx c/f acute OM, no additional sites of OM in the right foot, dorsal right foot edema, no fluid collections within the right foot. He has been started on daptomycin and zosyn. Planned for amputation. ID consulted 09/09. # OM of distal tuft of right first distal phalanx # RLE cellulitis # Type 2 DM # CKD III # RA and UC on plaquenil and Enbrel - f/u wound cx - if any fevers, send blood cx - will continue on daptomycin and zosyn - f/u amputation please send proximal margin path ID will continue to follow. If questions or concerns, contact via [employer] or Infectious Disease Call Center . Alea Fischer MD [facility], Division of Infectious Diseases Admission and Anticipated Discharge Date Admission Date: September 09, 2024 Subjective Subsequent visit was provided via telemedicine using two-way real-time interactive telecommunication between the patient and the telemedicine provider. For the duration of the visit, the provider was performing the assessment from a different facility than the patient. This includesuse of bluetooth stethoscope forauscultationperformed by the telepresenter that the telemedicine provider can hear if described in the physical exam. Director Of Community Life contact information: Please call [facility] Call Center . (Phone Number For Physician Use Only) After establishing a telemedicine visit, patient was: Patient was verified with two unique identifiers, Patient/authorized rep acknowledged consent and understanding and Gave permission to continue telehealth session Time Spent with Patient: Subsequent => 35 min Patient denies pain. No abdominal discomfort, v/d. He denies injuring his foot. Physical Exam Physical Exam: General: Awake, alert, no acute distress HEENT: NC/AT, EOMI, mmm Neck: supple Lungs: respirations non-labored Abdomen: soft, NT/ND Ext: RLE with edema, open wound on great toe, necrotic area on second toe, 3rd toe with a scab Skin: difficult to appreciate erythema Results & Data Vital Signs (Past 12 Hours) Vital Signs Temp Pulse Pulse Pulse Resp BP Pulse Ox 09/10/24 08:42 36.6 C 72 18 132/73 96 09/10/24 07:26 70 09/10/24 02:41 36.5 C 64 18 148/79 H 97 09/10/24 00:10 36.6 C 69 18 173/72 H 99 09/09/24 21:49 71 O2 Del Method 09/10/24 08:42 Room Air 09/10/24 07:26 09/10/24 02:41 Room Air 09/10/24 00:10 Room Air 09/09/24 21:49 Laboratory Results Labs reviewed. Diagnostic Findings Imaging reviewed. (1) Cellulitis Laterality: right Site of cellulitis: extremity Site of cellulitis of extrem ity: lower extremity Qualified Code(s): L03.115 - Cellulitis of right lower limb
[2024-09-10] MEDS: SODIUM ZIRCONIUM CYCLOSILICATE 10 GM PACKET PO ONE (11:02)
--- NOTE | 2024-09-10 11:32 | Hospitalist Progress Note ---
Date of Service September 10, 2024 Assessment & Plan (1) Acute osteomyelitis of toe of right foot: (2) Type 2 diabetes mellitus with polyneuropathy: (3) HTN (hypertension): (4) Hyperlipidemia: (5) H/O: CVA (cerebrovascular accident): (6) Rheumatoid arthritis: (7) Ulcerative colitis: (8) CKD stage 3b, GFR 30-44 ml/min: Plan 69-year-old present inmate with past medical history of insulin-dependent type 2 diabetes mellitus, hypertension, history of CVA in 2017 not on aspirin, chronic diastolic congestive heart failure with preserved ejection fraction of 60%, CKD stage III, rheumatoid arthritis on Plaquenil and ulcerative colitis on weekly Enbrel, history of left first and second toe amputation secondary to osteomyelitis was recently seen in ED on 08/12/2024 for right toe ulcer and discharge from ED on Keflex plus doxycycline for 7 days with wound culture growing Pseudomonas aeruginosa and MSSA presents with worsening right toe wound with purulent discharge. Right foot CT done which showed right toe wound with associated soft tissue swelling suggestive of cellulitis, subtle erosion of the distal tuft of the right first distal phalanx to just above acute osteomyelitis. Dorsal right foot edema, no fluid collections within the right foot and no soft tissue gas noted. #Right foot/right first toe diabetic foot ulcer/osteomyelitis with cellulitis Patient is a diabetic and also on immunosuppressants Podiatry consulted: Dr. Vinh Mazariegos saw patient and planning on distal amputation of the first and second right toes on , 09/12/2024 Patient received IV daptomycin and IV Zosyn in ED Recent wound culture from 08/12/2024 shows MSSA plus Pseudomonas aeruginosa. Patient has history of MRSA diabetic ulcer in the past ID saw the patient and recommended continuing IV Zosyn and IV daptomycin (day 2) Wound care consult I suspect patient also has element of vascular disease: Will check DYLAN (PVR not available in this hospital) #History of CVA #Essential hypertension #Hyperlipidemia #Chronic diastolic congestive heart failure preserved ejection fraction of 60% Echo from January 2024 shows EF of 60 to 65% with grade 1 diastolic dysfunction Patient tells me he has not been on aspirin for a year. As per patient, aspirin was stopped as he was told he does not need it anymore Patient would benefit from being on aspirin 81 mg daily: Will hold off on starting aspirin since patient is scheduled for surgery soon and this should be started postoperatively Continue statin Hold valsartan 80 mg daily in light of hyperkalemia Continue amlodipine 10 mg p.o. daily Switch Lasix 20 mg daily to Bumex 1 mg p.o. daily for better diuretic effect since patient is not finding any improvement with oral Lasix EKG from admission shows normal sinus rhythm at 66 bpm BNP is 30 I/O monitoring Daily weights Hydralazine 25 mg p.o. 3 times daily as needed for hypertension per home dose Monitor vital signs #Insulin-dependent type 2 diabetes mellitus with hypoglycemia episodes A1c is 9 Patient had episode of hypoglycemia in ED on admission which improved with D50 Accu-Cheks before every meal and nightly with sliding scale insulin coverage Pharmacy managing glycemic control #CKD stage III #Hyperkalemia Hold valsartan in light of hyperkalemia Lokelma x 1 dose Baseline creatinine is between 1.5-1.7 Avoid nephrotoxic agents including NSAIDs Monitor renal function and electrolytes and replace as needed #Ulcerative colitis #Rheumatoid arthritis Patient is on weekly Enbrel (every Monday) for ulcerative colitis and also takes hydroxychloroquine for rheumatoid arthritis Patient is immunosuppressed, will hold off on immunosuppressants at this point given active infection with osteomyelitis This can be resumed on discharge once infection is under better control CODE STATUS: Full code DVT prophylaxis: Heparin subcutaneous Admission and Anticipated Discharge Date Admission Date: September 09, 2024 Subjective Patient seen and examined Labs reviewed EKG reviewed ID and podiatry recommendations reviewed Reports feeling better today Denies any chest pain, fever, cough, chills, nausea, vomiting, diarrhea abdominal pain He met with veterinarian helper yesterday and is aware of the plan of amputation Physical Exam Physical Exam: General: No acute distress Psych: Awake and alert, oriented to place person and time HEENT: Anicteric sclera, moist oral mucosa CVS: Regular rate and rhythm Lungs: Bilateral air entry, no wheezing noted Abdomen: Soft, nontender, no rebound, no guarding Ext: Bilateral lower extremity trace edema, right toes in dressing Neuro: No focal motor deficits noted, patient able to move all 4 extremities Results & Data Results & Data Vital Signs (Past 12 Hours) Vital Signs Temp Pulse Pulse Pulse Resp BP Pulse Ox 09/10/24 08:42 36.6 C 72 18 132/73 96 09/10/24 07:26 70 09/10/24 02:41 36.5 C 64 18 148/79 H 97 09/10/24 00:10 36.6 C 69 18 173/72 H 99 O2 Del Method 09/10/24 08:42 Room Air 09/10/24 07:26 09/10/24 02:41 Room Air 09/10/24 00:10 Room Air Laboratory Results Laboratory Results - last 24 hr 09/09/24 09/09/24 09/09/24 10:01 11:03 11:30 WBC RBC Hgb Hct MCV MCH MCHC RDW Std Deviation RDW Coeff of Vidal Plt Count MPV Immature Gran % (Auto) Neut % (Auto) Lymph % (Auto) Heard % (Auto) Eos % (Auto) Baso % (Auto) Neut # (Auto) Lymph # (Auto) Heard # (Auto) Eos # (Auto) Baso # (Auto) Immature Gran # (Auto) PT INR Sodium Potassium Chloride Carbon Dioxide Anion Gap BUN Creatinine Est Cr Clr Drug Dosing eGFR BUN/Creatinine Ratio Glucose POC Glucose 24 L* 80 Estimat Average Glucose Hemoglobin A1c Calcium Magnesium Total Creatine Kinase C-Reactive Protein 0.58 H B-Natriuretic Peptide Triglycerides Cholesterol LDL Cholesterol, Calc VLDL Cholesterol, Calc HDL Cholesterol Cholesterol/HDL Ratio Vitamin B12 09/09/24 09/09/24 09/09/24 15:14 17:52 17:53 WBC RBC Hgb Hct MCV MCH MCHC RDW Std Deviation RDW Coeff of Vidal Plt Count MPV Immature Gran % (Auto) Neut % (Auto) Lymph % (Auto) Heard % (Auto) Eos % (Auto) Baso % (Auto) Neut # (Auto) Lymph # (Auto) Heard # (Auto) Eos # (Auto) Baso # (Auto) Immature Gran # (Auto) PT INR Sodium Potassium Chloride Carbon Dioxide Anion Gap BUN Creatinine Est Cr Clr Drug Dosing eGFR BUN/Creatinine Ratio Glucose POC Glucose 70 65 L* 75 Estimat Average Glucose Hemoglobin A1c Calcium Magnesium Total Creatine Kinase C-Reactive Protein B-Natriuretic Peptide Triglycerides Cholesterol LDL Cholesterol, Calc VLDL Cholesterol, Calc HDL Cholesterol Cholesterol/HDL Ratio Vitamin B12 09/09/24 09/10/24 09/10/24 20:41 06:41 08:13 WBC 4.46 L RBC 4.16 L Hgb 11.8 L Hct 35.9 L MCV 86.3 MCH 28.4 MCHC 32.9 RDW Std Deviation 42.0 RDW Coeff of Vidal 13.5 Plt Count 237 MPV 10.7 Immature Gran % (Auto) 0.2 Neut % (Auto) 51.5 Lymph % (Auto) 33.0 Heard % (Auto) 10.8 Eos % (Auto) 3.4 Baso % (Auto) 1.1 Neut # (Auto) 2.30 Lymph # (Auto) 1.47 Heard # (Auto) 0.48 Eos # (Auto) 0.15 Baso # (Auto) 0.05 Immature Gran # (Auto) 0.01 PT 11.2 INR 1.0 Sodium 130 L Potassium 5.3 H D Chloride 99 Carbon Dioxide 25 Anion Gap 6 BUN 22 Creatinine 1.49 H Est Cr Clr Drug Dosing 48.4 eGFR 49.86 BUN/Creatinine Ratio 14.8 Glucose 338 H* POC Glucose 275 H 339 H* Estimat Average Glucose 212 Hemoglobin A1c 9.0 H Calcium 8.7 Magnesium 1.7 Total Creatine Kinase 104 C-Reactive Protein B-Natriuretic Peptide 30 Triglycerides 55 Cholesterol 131 LDL Cholesterol, Calc 63 VLDL Cholesterol, Calc 11 HDL Cholesterol 57 Cholesterol/HDL Ratio 2.3 Vitamin B12 1369 H 09/10/24 08:14 WBC RBC Hgb Hct MCV MCH MCHC RDW Std Deviation RDW Coeff of Vidal Plt Count MPV Immature Gran % (Auto) Neut % (Auto) Lymph % (Auto) Heard % (Auto) Eos % (Auto) Baso % (Auto) Neut # (Auto) Lymph # (Auto) Heard # (Auto) Eos # (Auto) Baso # (Auto) Immature Gran # (Auto) PT INR Sodium Potassium Chloride Carbon Dioxide Anion Gap BUN Creatinine Est Cr Clr Drug Dosing eGFR BUN/Creatinine Ratio Glucose POC Glucose 322 H* Estimat Average Glucose Hemoglobin A1c Calcium Magnesium Total Creatine Kinase C-Reactive Protein B-Natriuretic Peptide Triglycerides Cholesterol LDL Cholesterol, Calc VLDL Cholesterol, Calc HDL Cholesterol Cholesterol/HDL Ratio Vitamin B12 PG Care Time/CCT Total # of Minutes Spent Total Time Spent with Patient: Total time spent is greater than 50% in coordination of care (as documented) at patient's floor/unit and/or counseling patient: Coding Level of Care Code 13896 SUB INP/OBS CARE 3/50MIN Diagnoses Acute osteomyelitis of toe of right foot M86.171 Type 2 diabetes mellitus with polyneuropathy E11.42 HTN (hypertension) I10 Hypertension type: unspecified Hyperlipidemia, unspecified hyperlipidemia type E78.5 Hyperlipidemia type: unspecified H/O: CVA (cerebrovascular accident) Z86.73 Rheumatoid arthritis M06.9 Ulcerative colitis K51.90 CKD stage 3b, GFR 30-44 ml/min N18.32 (3) HTN (hypertension) Hypertension type: unspecified Qualified Code(s): I10 - Essential (primary) hypertension (4) Hyperlipidemia Hyperlipidemia type: unspecified Qualified Code(s): E78.5 - Hyperlipidemia, unspecified
[2024-09-10] MEDS: DAPTOmycin 450 MG in SYRINGE 0 ML IV SCH (12:23)
--- NOTE | 2024-09-10 12:37 | Pharmacy Report ---
Pharmacy Glycemic Short Note 2 - Date of Service September 10, 2024 - Glycemic Short BSG Results (Last 24 hours): 09/09/24 09/09/24 09/09/24 15:14 17:52 17:53 Glucose POC Glucose 70 65 L* 75 09/09/24 09/10/24 09/10/24 20:41 06:41 08:13 Glucose 338 H* POC Glucose 275 H 339 H* 09/10/24 09/10/24 09/10/24 08:14 12:07 12:08 Glucose POC Glucose 322 H* 385 H* 390 H* OUTPATIENT ANTIDIABETIC REGIMEN: * NPH 20 units SQ qAM, 18 units SQ qPM * Novolin R 10 units BID with meals and SS * Metformin 500mg po BID HbA1c 9% 09/10/24 ASSESSMENT: 09/10/24 * Patient's BG increased last night and this evening due to holding basal, as patient had critical hypoglycemia upon admission. * Resumed NPH and and conservative NovoLog CF/CR at breakfast, resulting in BG in 300s at lunch, will tighten CF/CR and lower goal range and add additional check at 1445 to bring patient back to goal blood sugar. 09/09/24 * 69 year old male to be admitted today via the ED for a worsening right toe w ound with purulent discharge. (Found on CT to be osteomyelitis with cellulitis). He was started on daptomycin and zosyn. Pharmacy was consulted for glycemic management while he is admitted * Patient has history of HHNC as well as stage III CKD (baseline SCr between 1.5 and 1.7). * Patient had an episode of hypoglycemia in the ED this morning--BSG of 27mg/dL which improved to 80mg/dL after receiving 25ml of D50. Because of this, basal insulin will be held for now. Conservative bolus insulin will be ordered--Loose CF and no CR for now until patient is eating and BSGs have improved. * He will be followed closely and insulin will be adjusted as needed. PLAN FOR INPATIENT GLYCEMIC CONTROL: * Basal insulin * NPH 20 units SC BID with meals * Bolus insulin * NovoLog per scale ACHS or Q6hrs while NPO * Goal Range: Low 110 mg/dL - High 140 mg/dL * Correction Factor: 20 mg/dL/unit * Nutritional / Prandial insulin per carb ratio: 1 unit per 6 grams CHO c onsumed
[2024-09-10] MEDS: INSULIN HUMAN REGULAR PER UNIT 5 UNITS in SYRINGE 4.95 ML IV ONE (15:57)
[2024-09-10] MEDS: INSULIN ASPART PER UNIT CHARGE SC SCH (15:57)
--- NOTE | 2024-09-10 16:07 | Ultrasound Report ---
US ankle/brachial index ltd HISTORY: 69 years-old Male PVD, ULCERS: DYLAN/PVR peripheral arterial disease COMPARISON: None TECHNIQUE: Segmental pressures with ABIs FINDINGS: Right-sided DYLAN is 0.83 and the left is 0.81. IMPRESSION: ABIs as above. ACT 112: Negative or not required by law. The above report was generated using voice recognition software. It may contain grammatical, syntax o r spelling errors. Electronically signed by: Ayaz Nichols M.D. 09/10/2024 4:06 PM
[2024-09-10] MEDS: LANTUS PER UNIT CHARGE SC SCH (22:13)
--- NOTE | 2024-09-10 22:31 | Podiatry Progress Note ---
Date of Service September 10, 2024 Assessment & Plan (1) Osteomyelitis: (2) Acute osteomyelitis of toe of right foot: (3) Type 2 diabetes mellitus with polyneuropathy: (4) Diabetic ulcer of left foot associated with diabetes mellitus due to underlying condition, with necrosis of bone: (5) Diabetes mellitus with peripheral angiopathy with gangrene: Plan - Pt examined and evaluated. - Foot redressed with optifoam gauze dressing - Scheduled for amputation of right 1st and 2nd toes; discussed with patient and he is amenable to this. - Will obtain consent preoperatively. Preop orders to be placed tomorrow. - Will continue to follow. Admission and Anticipated Discharge Date Admission Date: September 09, 2024 Subjective Pt seen at bedside over lunch hour. No new concerns. Healthy appetite. No significant pain to foot. Restrained in bed with care home guards present. Review of Systems Constitutional: no fever, no chills and no fatigue Eyes: no problem reported Ear, Nose, Mouth, Throat: no problem reported Respiratory: no problem reported Cardiovascular: + edema; no problem reported Gastrointestinal: no nausea, no vomiting and no problem reported Musculoskeletal: no problem reported Integumentary: + non-healing lesions, + skin ulcer, + w ounds and + erythema Neurologic: + loss of sensation, + numbness and + pa resthesia; no generalized weakness Psychiatric: no problem reported Physical Exam Physical Exam: Lower extremity focused exam: DP/PT pulses 1/4 bilaterally. CFT is brisk to the digits, except for the right first and second toes. There is delayed refill time on the hallux and absent to the tip of the second toe. At the tip off the hallux, the distal phalanx was immediately visible and palpable, eroded through the cortical bone with cancellous tuft bone easily noted. The tip of the second is a large area of eschar, which appears more necrotic in appearance than a superficial scab. No pain is noted on palpation of the toes with diminished touch and protective sensation noted to the bilateral lower extrremity overall. Muscle strength is equal and full bilaterally. Constitutional: WD/WN, vitals as above + ill appearing and average body habitus Eyes: PERRL, conjunctivae normal, anicteric sclerae ENMT: external ear and nose normal, oropharynx normal Mouth: + poor dentition Neck: trachea midline, no thyromegaly normal visual inspection Respiratory: normal respiratory effort; no respiratory distress Cardiovascular: Rate/Rhythm: regular rate and regular rhythm Vessels: posterior tibial pulses present and dorsalis pedis pulses present Extremities: + pedal edema; + abnormal capillary refill and no calf tenderness Chest (Breasts): Chest: normal inspection of chest Gastrointestinal (Abdomen): Inspection/Auscultation: abdomen normal to inspection Percussion/Palpation: + abdomen tender and abdomen soft Musculoskeletal: no cyanosis or clubbing, extremities motor strength 5/5 Head/Neck/Chest: normocephalic and head atraumatic Extremities: extremities normal to inspection, + limited ROM of lower extremity (Ankle equinus noted, consistent with age) Bilateral and + foot abnormality Skin: + ulcer, + skin atrophy, + erythema and + nails dystrophic; no fluctulance Neurologic: awake; no focal motor deficits Psychiatric: A+Ox3, euthymic affect Results & Data Results & Data Vital Signs (Past 12 Hours) Vital Signs Temp Pulse Pulse Pulse Resp BP BP 09/10/24 19:52 36.8 C 64 16 108/65 09/10/24 14:47 71 09/10/24 12:48 36.6 C 68 20 139/59 L 09/10/24 11:44 36.4 C L 71 18 155/77 H Pulse Ox O2 Del Method 09/10/24 19:52 99 Room Air 09/10/24 14:47 09/10/24 12:48 93 Room Air 09/10/24 11:44 98 Room Air (1) Osteomyelitis Laterality: right Osteomyelitis location: foot Osteomyelitis type: other acute Qualified Code(s): M86.171 - Other acute osteomyelitis, right ankle and foot (4) Diabetic ulcer of left foot associated with diabetes mellitus due to underlying condition, with necrosis of bone Diabetic foot ulcer location: toe Qualified Code(s): E08.621 - Diabetes mellitus due to underlying condition with foot ulcer; L97.524 - Non-pressure chronic ulcer of other part of left foot with necrosis of bone (5) Diabetes mellitus with peripheral angiopathy with gangrene Diabetes mellitus type: type 2 Diabetes mellitus technician terminal and repeater insulin use: without snf use Qualified Code(s): E11.52 - Type 2 diabetes mellitus with diabetic peripheral angiopathy with gangrene
--- NOTE | 2024-09-11 06:14 | Electrocardiogram Report ---
Test Reason : Blood Pressure : */* mmHG Vent. Rate : 66 BPM Atrial Rate : 66 BPM P-R Int : 202 ms QRS Dur : 88 ms QT Int : 386 ms P-R-T Axes : 47 23 92 degrees QTcB Int : 404 ms Normal sinus rhythm Nonspecific T wave abnormality Abnormal ECG When compared with ECG of 17-Aug-2024 18:01, Premature atrial complexes are no longer Present Criteria for Septal infarct are no longer Present Confirmed by Leonardo Cody ([id number]) on 09/11/2024 6:13:23 AM Referred By: [facility] Confirmed By: Leonardo Cody
[2024-09-11] MEDS: LANTUS PER UNIT CHARGE SC SCH (09:11)
--- NOTE | 2024-09-11 11:59 | Hospitalist Progress Note ---
Date of Service September 11, 2024 Assessment & Plan (1) Acute osteomyelitis of toe of right foot: (2) Type 2 diabetes mellitus with polyneuropathy: (3) HTN (hypertension): (4) Hyperlipidemia: (5) H/O: CVA (cerebrovascular accident): (6) Rheumatoid arthritis: (7) Ulcerative colitis: (8) CKD stage 3b, GFR 30-44 ml/min: Plan 69-year-old present inmate with past medical history of insulin-dependent type 2 diabetes mellitus, hypertension, history of CVA in 2017 not on aspirin, chronic diastolic congestive heart failure with preserved ejection fraction of 60%, CKD stage III, rheumatoid arthritis on Plaquenil and ulcerative colitis on weekly Enbrel, history of left first and second toe amputation secondary to osteomyelitis was recently seen in ED on 08/12/2024 for right toe ulcer and discharge from ED on Keflex plus doxycycline for 7 days with wound culture growing Pseudomonas aeruginosa and MSSA presents with worsening right toe wound with purulent discharge. Right foot CT done which showed right toe wound with associated soft tissue swelling suggestive of cellulitis, subtle erosion of the distal tuft of the right first distal phalanx to just above acute osteomyelitis. Dorsal right foot edema, no fluid collections within the right foot and no soft tissue gas noted. #Right foot/right first toe diabetic foot ulcer/osteomyelitis with cellulitis Patient is a diabetic and also on immunosuppressants Podiatry consulted: Dr. Vinh Mazariegos saw patient and planning on distal amputation of the first and second right toes on , 09/12/2024 Patient received IV daptomycin and IV Zosyn in ED Recent wound culture from 08/12/2024 shows MSSA plus Pseudomonas aeruginosa. Patient has history of MRSA diabetic ulcer in the past ID saw the patient and recommended continuing IV Zosyn and IV daptomycin (day 2) Wound care consult Podiatry plans to take to OR for amputation on 09/12 #History of CVA #Essential hypertension #Hyperlipidemia #Chronic diastolic congestive heart failure preserved ejection fraction of 60% Echo from January 2024 shows EF of 60 to 65% with grade 1 diastolic dysfunction Patient tells me he has not been on aspirin for a year. As per patient, aspirin was stopped as he was told he does not need it anymore Patient would benefit from being on aspirin 81 mg daily: Will hold off on starting aspirin since patient is scheduled for surgery soon and this should be started postoperatively Continue statin Hold valsartan 80 mg daily in light of hyperkalemia Continue amlodipine 10 mg p.o. daily Switch Lasix 20 mg daily to Bumex 1 mg p.o. daily for better diuretic effect since patient is not finding any improvement with oral Lasix EKG from admission shows normal sinus rhythm at 66 bpm BNP is 30 I/O monitoring Daily weights Hydralazine 25 mg p.o. 3 times daily as needed for hypertension per home dose Monitor vital signs #Insulin-dependent type 2 diabetes mellitus with hypoglycemia episodes A1c is 9 Patient had episode of hypoglycemia in ED on admission which improved with D50 Accu-Cheks before every meal and nightly with sliding scale insulin coverage Pharmacy managing glycemic control #CKD stage III #Hyperkalemia Hold valsartan in light of hyperkalemia Lokelma x 1 dose Baseline creatinine is between 1.5-1.7 Avoid nephrotoxic agents including NSAIDs Monitor renal function and electrolytes and replace as needed #Ulcerative colitis #Rheumatoid arthritis Patient is on weekly Enbrel (every Monday) for ulcerative colitis and also takes hydroxychloroquine for rheumatoid arthritis Patient is immunosuppressed, will hold off on immunosuppressants at this point given active infection with osteomyelitis This can be resumed on discharge once infection is under better control CODE STATUS: Full code DVT prophylaxis: Heparin subcutaneous Admission and Anticipated Discharge Date Admission Date: September 09, 2024 Subjective No events overnight, pt resting comfortably in bed. Review of Systems Review of Systems: CONST: Negative for fever, body aches and chills. HENT: Negative for neck pain/stiffness, headache, congestion, sore throat, swelling. EYES: Negative for discharge/pain or vision changes. RESP: Negative for cough/hemoptysis and shortness of breath. CV: Negative chest pain, difficulty breathing, palpitations. ABD: Negative pain, nausea, vomiting. : Negative increase frequency, dysuria, blood in urine or stool. MUSC: Negative for muscle aches, edema. SKIN: Negative rash, lesions/sores. NEURO: Negative headache, dizziness, weakness. Physical Exam Physical Exam: GENERAL APPEARANCE NAD, activity normal for age, well developed/ well nourished, no cyanosis, pallor, or diaphoresis. EYES lids/conjunctiva normal. EARS/NOSE/THROAT Mucous membranes moist, nares normal, lips/teeth normal uvula midline without oral pharyngeal erythema, exudate or swelling TMs normal bilaterally. No lymphangitis/lymphedema. HEAD/NECK normocephalic atraumatic, no facial trauma, neck is supple. RESPIRATORY respiratory effort normal, speaks in full sentences, no tripod position, no accessory muscle use. Lungs clear to auscultation without rhonchi, wheezes, rales CARDIAC Regular rate and rhythm, no edema. ABDOMINAL Soft, ND/NT. No evidence of fluid wave. No pulsatile masses on exam, rebound tenderness, Díaz sign or pain over Mcburney's point. MUSCLES/EXTREMITIES No abnormal range of motion, no swelling. SKIN Warm, pink and dry. No rashes, dermatoses, petechiae or lesions. NEUROLOGICAL Speech is clear and appropriate. Normal level of consciousness. Gait and coordination are normal. 5/5 strength in all extremities. PSYCH Normal mood and affect. Judgement/competence is appropriate Results & Data Results & Data Vital Signs (Past 12 Hours) Vital Signs Temp Pulse Resp BP BP Pulse Ox O2 Del Method 09/11/24 11:43 36.6 C 69 18 158/102 H 97 Room Air 09/11/24 07:49 36.6 C 64 18 160/78 H 97 Room Air 09/11/24 03:18 36.9 C 64 14 129/70 95 Room Air PG Care Time/CCT Total # of Minutes Spent Total Time Spent with Patient: Total time spent is greater than 50% in coordination of care (as documented) at patient's floor/unit and/or counseling patient: Coding Level of Care Code 79433 SUB INP/OBS CARE 2/35MIN Diagnoses Acute osteomyelitis of toe of right foot M86.171 Type 2 diabetes mellitus with polyneuropathy E11.42 HTN (hypertension) I10 Hypertension type: unspecified Hyperlipidemia, unspecified hyperlipidemia type E78.5 Hyperlipidemia type: unspecified H/O: CVA (cerebrovascular accident) Z86.73 Rheumatoid arthritis M06.9 Ulcerative colitis K51.90 CKD stage 3b, GFR 30-44 ml/min N18.32 (3) HTN (hypertension) Hypertension type: unspecified Qualified Code(s): I10 - Essential (primary) hypertension (4) Hyperlipidemia Hyperlipidemia type: unspecified Qualified Code(s): E78.5 - Hyperlipidemia, unspecified
[2024-09-11] MEDS: INSULIN HUMAN REGULAR PER UNIT 5 UNITS in SYRINGE 4.95 ML IV ONE (12:35)
--- NOTE | 2024-09-11 14:12 | Pharmacy Report ---
Pharmacy Glycemic Short Note 2 - Date of Service September 11, 2024 - Glycemic Short BSG Results (Last 24 hours): 09/10/24 09/10/24 09/10/24 14:34 14:36 17:24 POC Glucose 353 H* 307 H* 39 L* 09/10/24 09/10/24 09/10/24 17:26 17:49 17:51 POC Glucose 47 L* 56 L* 55 L* 09/10/24 09/10/24 09/11/24 18:14 20:33 08:17 POC Glucose 90 144 H 248 H 09/11/24 09/11/24 11:56 11:58 POC Glucose 512 H* 459 H* OUTPATIENT ANTIDIABETIC REGIMEN: * NPH 20 units SQ qAM, 18 units SQ qPM * Novolin R 10 units BID with meals and SS * Metformin 500mg po BID HbA1c 9% 09/10/24 ASSESSMENT: 09/11/24 * BSGs above goal today with critical high of 512 around lunch time. Pt will get a one time dose of IV insulin 5 units * Pt was also hypoglycemic again yesterday late afternoon hitting a low of 39; this can be possibly d/t insulin stacking. * Correction factor loosened from 25 to 30 d/t lows after hyperglycemia indicating it was possibly too tight. Carb ratio will be tightened d/t pt's hyperglycemia today after his breakfast. * NPH was changed to Lantus yesterday evening. A one time scaled HS order put in as well. * Pt will be closely monitored considering extreme swings in his BSG and antic ipated NPO status for his upcoming surgery tomorrow. 09/10/24 * Patient's BG increased last night and this evening due to holding basal, as patient had critical hypoglycemia upon admission. * Resumed NPH and and conservative NovoLog CF/CR at breakfast, resulting in BG in 300s at lunch, will tighten CF/CR and lower goal range and add additional check at 1445 to bring patient back to goal blood sugar. 09/09/24 * 69 year old male to be admitted today via the ED for a worsening right toe wound with purulent discharge. (Found on CT to be osteomyelitis with cellulitis). He was started on daptomycin and zosyn. Pharmacy was consulted for glycemic management while he is admitted * Patient has history of HHNC as well as stage III CKD (baseline SCr between 1.5 and 1.7). * Patient had an episode of hypoglycemia in the ED this morning--BSG of 27mg/dL which improved to 80mg/dL after receiving 25ml of D50. Because of this, basal insulin will be held for now. Conservative bolus insulin will be ordered-- Loose CF and no CR for now until patient is eating and BSGs have improved. * He will be followed closely and insulin will be adjusted as needed. PLAN FOR INPATIENT GLYCEMIC CONTROL: * Basal insulin * Lantus 15 units QD and 0-5 units (based on BSG) HS once tonight. * Bolus insulin * NovoLog per scale ACHS or Q6hrs while NPO * Goal Range: Low 110 mg/dL - High 140 mg/dL * Correction Factor: 30 mg/dL/unit * Nutritional / Prandial insulin per carb ratio: 1 unit per 7 grams CHO consumed
[2024-09-11] MEDS: ACETAMINOPHEN 500 MG TAB PO PRN (18:05)
[2024-09-11] MEDS: LANTUS PER UNIT CHARGE SC ONE (20:31)
[2024-09-12 06:33] LABS: Hematocrit (blood only) 36.6 % (42.0-52.0); Hemoglobin 11.9 g/dl (14.0-18.0); Mean Corpuscular Hemoglobin 28.1 pg (25.0-34.0); Mean Corpuscular Hgb Conc 32.5 g/dL (32.0-36.0); Mean Corpuscular Volume 86.3 fL (80.0-100.0); Mean Platelet Volume 10.3 fL (9.4-12.4); Platelet Count 217 K/uL (130-400); RDW Coefficient of Variation 13.4 % (11.5-14.5); RDW Standard Deviation 42.5 fL (36.4-46.3); Red Blood Count 4.24 M/uL (4.70-6.10); White Blood Count 4.68 K/ul (4.8-10.8)
[2024-09-12 07:22] LABS: Potassium 4.1 mmol/L (3.5-5.1)
[2024-09-12 07:23] LABS: BUN Creatinine Ratio 17.6 (10-20); Calcium 8.8 mg/dl (8.6-10.3); Creatinine Clr Calc Pharmacy 39.6 ml/min
[2024-09-12] MEDS ORDERED: ATROPINE SULFATE 0.1 MG/ML 10ML SYR IV PRN ×2 (10:10→10:12)
[2024-09-12] MEDS ORDERED: fentaNYL citrate PF 100 MCG/2 ML VIAL IV PRN ×2 (10:10→10:12)
[2024-09-12] MEDS ORDERED: ONDANSETRON INJ 2 MG/ML 2 ML VIAL IV PRN ×2 (10:10→10:12)
[2024-09-12] MEDS ORDERED: ePHEDrine sulfate 50 MG/ML AMP IV PRN ×2 (10:10→10:12)
[2024-09-12] MEDS: LACTATED RINGER'S 1,000 ML IV SCH (10:13)
[2024-09-12] MEDS ORDERED: Nursing to Pharmacy Communication SCH ×2 (10:15)
[2024-09-12] MEDS ORDERED: ONDANSETRON INJ 2 MG/ML 2 ML VIAL ONE (10:17)
[2024-09-12] MEDS ORDERED: PROPOFOL IV EMULSION 10 MG/ML 20 ML VIAL IV ONE (10:17)
[2024-09-12] MEDS ORDERED: LIDOCAINE 2% 2 ML VIAL/AMP(20MG/ML) INFIL ONE (10:17)
[2024-09-12] MEDS ORDERED: MIDAZOLAM HCL 1 MG/ML 2ML VIAL ONE (10:18)
[2024-09-12] MEDS ORDERED: fentaNYL citrate PF 100 MCG/2 ML VIAL ONE (10:18)
--- NOTE | 2024-09-12 10:35 | History & Physical Bridge Note ---
Date of Service September 12, 2024 History & Physical Bridge Note I have examined the patient, reviewed the History & Physical and in the interval since the performance of the History & Physical I have noted the following changes of clinical significance: no changes noted. Plan for 1st and second toe partial amputations, right foot. Consent obtained. All questions answered.
[2024-09-12] MEDS: BUPIVACAINE 0.5 % 5 MG/1 ML MPF 30ML VIAL ONE (11:10)
[2024-09-12] MEDS ORDERED: PHENYLEPHRINE HCL 10 MG/ML VIAL ONE (11:23)
--- NOTE | 2024-09-12 11:34 | Post Operative Brief Note ---
Immediate Post Op Note Date of Surgery September 12, 2024 Pre & Post Diagnosis Operation Date: 09/12/24 10:30 Pre-Op Diagnosis: Right Toe Osteomyelitis Post-Op Diagnosis: Right Toe Osteomyelitis I identified the patient and participated in the time-out.: Yes Procedure Operation Date: 09/12/24 10:30 Actual Procedures p Right First and Second Partial Toe Amputations(Right) - Vinh Mazariegos DPM Surgeon Vinh Mazariegos DPM Data Conversion Operator NONE Estimated Blood Loss 10 Findings Consistent with Post-Op Diagnosis Specimens Right first toe Right first toe proximal margin Right second toe Right second toe proximal margin Right hallux distal phalanx bone culture Anesthesia Type MAC Complications none Disposition Accompanied Patient To Recovery: Yes Disposition: Recovery Room
--- NOTE | 2024-09-12 11:38 | Hospitalist Progress Note ---
Date of Service September 12, 2024 Assessment & Plan (1) Acute osteomyelitis of toe of right foot: Plan: Recent wound culture from 08/12/2024 shows MSSA plus Pseudomonas aeruginosa. Patient has history of MRSA diabetic ulcer in the past ID saw the patient and recommended continuing IV Zosyn and IV daptomycin (day 4) Wound care consult Podiatry plans to take to OR for amputation today 09/12 (2) Type 2 diabetes mellitus with polyneuropathy: Plan: Accu-Cheks before every meal and nightly with sliding scale insulin coverage Pharmacy managing glycemic control (3) HTN (hypertension): (4) Hyperlipidemia: (5) H/O: CVA (cerebrovascular accident): (6) Rheumatoid arthritis: Plan: Hydroxychloroquine Patient is immunosuppressed, will hold off on immunosuppressants at this point given active infection with osteomyelitis This can be resumed on discharge once infection is under better control (7) Ulcerative colitis: Plan: Patient is on weekly Enbrel (every Monday) (8) CKD stage 3b, GFR 30-44 ml/min: Plan CODE STATUS: Full code DVT prophylaxis: Heparin subcutaneous Admission and Anticipated Discharge Date Admission Date: September 09, 2024 Subjective No events overnight, pt resting comfortably in bed. Review of Systems Review of Systems: CONST: Negative for fever, body aches and chills. HENT: Negative for neck pain/stiffness, headache, congestion, sore throat, swelling. EYES: Negative for discharge/pain or vision changes. RESP: Negative for cough/hemoptysis and shortness of breath. CV: Negative chest pain, difficulty breathing, palpitations. ABD: Negative pain, nausea, vomiting. : Negative increase frequency, dysuria, blood in urine or stool. MUSC: Negative for muscle aches, edema. SKIN: Negative rash, lesions/sores. NEURO: Negative headache, dizziness, weakness. Physical Exam Physical Exam: GENERAL APPEARANCE NAD, activity normal for age, well developed/ well nourished, no cyanosis, pallor, or diaphoresis. EYES lids/conjunctiva normal. EARS/NOSE/THROAT Mucous membranes moist, nares normal, lips/teeth normal uvula midline without oral pharyngeal erythema, exudate or swelling TMs normal bilaterally. No lymphangitis/lymphedema. HEAD/NECK normocephalic atraumatic, no facial trauma, neck is supple. RESPIRATORY respiratory effort normal, speaks in full sentences, no tripod position, no accessory muscle use. Lungs clear to auscultation without rhonchi, wheezes, rales CARDIAC Regular rate and rhythm, no edema. ABDOMINAL Soft, ND/NT. No evidence of fluid wave. No pulsatile masses on exam, rebound tenderness, Díaz sign or pain over Mcburney's point. MUSCLES/EXTREMITIES No abnormal range of motion, no swelling. SKIN Warm, pink and dry. No rashes, dermatoses, petechiae or lesions. NEUROLOGICAL Speech is clear and appropriate. Normal level of consciousness. Gait and coordination are normal. 5/5 strength in all extremities. PSYCH Normal mood and affect. Judgement/competence is appropriate Results & Data Results & Data Vital Signs (Past 12 Hours) Vital Signs Temp Pulse Pulse Resp BP BP Pulse Ox 09/12/24 09:52 36.7 C 69 18 175/96 H 97 09/12/24 08:06 36.7 C 62 16 159/80 H 96 09/12/24 07:07 62 09/12/24 02:21 36.3 C L 63 16 146/75 H 98 09/12/24 01:12 64 O2 Del Method 09/12/24 09:52 Room Air 09/12/24 08:06 Room Air 09/12/24 07:07 09/12/24 02:21 Room Air 09/12/24 01:12 PG Care Time/CCT Total # of Minutes Spent Total Time Spent with Patient: Total time spent is greater than 50% in coordination of care (as documented) at patient's floor/unit and/or counseling patient: Coding Level of Care Code 21831 SUB INP/OBS CARE 2/35MIN Diagnoses Acute osteomyelitis of toe of right foot M86.171 Type 2 diabetes mellitus with polyneuropathy E11.42 HTN (hypertension) I10 Hypertension type: unspecified Hyperlipidemia, unspecified hyperlipidemia type E78.5 Hyperlipidemia type: unspecified H/O: CVA (cerebrovascular accident) Z86.73 Rheumatoid arthritis M06.9 Ulcerative colitis K51.90 CKD stage 3b, GFR 30-44 ml/min N18.32 (3) HTN (hypertension) Hypertension type: unspecified Qualified Code(s): I10 - Essential (primary) hypertension (4) Hyperlipidemia Hyperlipidemia type: unspecified Qualified Code(s): E78.5 - Hyperlipidemia, unspecified
--- NOTE | 2024-09-12 12:05 | Anesthesiology Progress Note ---
Date of Service September 12, 2024 Anesthesia Post Procedure Vital Signs Vital Signs: Temp Pulse Pulse Pulse Resp BP BP 09/12/24 11:55 36.4 C L 68 16 111/69 09/12/24 11:45 72 16 125/77 09/12/24 11:37 36.6 C 70 16 105/67 09/12/24 09:52 36.7 C 69 18 175/96 H 09/12/24 08:06 36.7 C 62 16 159/80 H 09/12/24 07:07 62 09/12/24 02:21 36.3 C L 63 16 146/75 H 09/12/24 01:12 64 09/11/24 23:09 36.3 C L 65 18 137/75 09/11/24 19:12 36.6 C 64 16 160/79 H 09/11/24 15:45 36.7 C 65 18 139/84 09/11/24 14:05 70 Pulse Ox O2 Del Method O2 Flow Rate 09/12/24 11:55 98 Room Air 09/12/24 11:45 100 Oxymask 5 09/12/24 11:37 99 Oxymask 5 09/12/24 09:52 97 Room Air 09/12/24 08:06 96 Room Air 09/12/24 07:07 09/12/24 02:21 98 Room Air 09/12/24 01:12 09/11/24 23:09 98 Room Air 09/11/24 19:12 97 Room Air 09/11/24 15:45 97 Room Air 09/11/24 14:05 Notes Mental Status: alert / awake / arousable Patient Amnestic to Procedure: Yes Nausea / Vomiting: adequately controlled Pain: adequately controlled Airway Patency, RR, SpO2: stable & adequate BP & HR: stable & adequate Hydration State: stable & adequate Anesthetic Complications: no major complications apparent
--- NOTE | 2024-09-12 13:52 | Pharmacy Report ---
Pharmacy Glycemic Short Note 2 - Date of Service September 12, 2024 - Glycemic Short BSG Results (Last 24 hours): 09/11/24 09/11/24 09/12/24 17:16 20:10 06:15 Glucose 178 H POC Glucose 259 H 207 H 09/12/24 09/12/24 09/12/24 08:15 09:55 11:56 Glucose POC Glucose 244 H 246 H 275 H 09/12/24 09/12/24 11:57 12:27 Glucose POC Glucose 270 H 280 H OUTPATIENT ANTIDIABETIC REGIMEN: * NPH 20 units SQ qAM, 18 units SQ qPM * Novolin R 10 units BID with meals and SS * Metformin 500mg po BID HbA1c 9% 09/10/24 ASSESSMENT: 09/12 * Post-op day #0. BSGs improving, fasting 178 mg/dL on lab this morning 244 mg/dL on POC check- will increase lantus scale for PM dose * BSG at lunch 270 mg/dL- as patient was NPO will tighten correction factor,continue current carb coverage for now 09/11/24 * BSGs above goal today with critical high of 512 around lunch time. Pt will get a one time dose of IV insulin 5 units * Pt was also hypoglycemic again yesterday late afternoon hitting a low of 39; this can be possibly d/t insulin stacking. * Correction factor loosened from 25 to 30 d/t lows after hyperglycemia indicating it was possibly too tight. Carb ratio will be tightened d/t pt's hyperglycemia today after his breakfast. * NPH was changed to Lantus yesterday evening. A one time scaled HS order put in as well. * Pt will be closely monitored considering extreme swings in his BSG and ant icipated NPO status for his upcoming surgery tomorrow. 09/10/24 * Patient's BG increased last night and this evening due to holding basal, as patient had critical hypoglycemia upon admission. * Resumed NPH and and conservative NovoLog CF/CR at breakfast, resulting in BG in 300s at lunch, will tighten CF/CR and lower goal range and add additional check at 1445 to bring patient back to goal blood sugar. 09/09/24 * 69 year old male to be admitted today via the ED for a worsening right toe wound with purulent discharge. (Found on CT to be osteomyelitis with cellulitis). He was started on daptomycin and zosyn. Pharmacy was consulted for glycemic management while he is admitted * Patient has history of HHNC as well as stage III CKD (baseline SCr between 1.5 and 1.7). * Patient had an episode of hypoglycemia in the ED this morning--BSG of 27mg/dL which improved to 80mg/dL after receiving 25ml of D50. Because of this, basal insulin will be held for now. Conservative bolus insulin will be ordere d--Loose CF and no CR for now until patient is eating and BSGs have improved. * He will be followed closely and insulin will be adjusted as needed. PLAN FOR INPATIENT GLYCEMIC CONTROL: * Basal insulin * Lantus 15 units QD and 5-10 units (based on BSG) HS once tonight. * Bolus insulin * NovoLog per scale ACHS or Q6hrs while NPO * Goal Range: Low 110 mg/dL - High 180 mg/dL * Correction Factor: 25 mg/dL/unit * Nutritional / Prandial insulin per carb ratio: 1 unit per 7 grams CHO consumed
--- NOTE | 2024-09-12 16:01 | Operative Report ---
Post Operative Report Pre & Post Diagnosis Operation Date: 09/12/24 10:30 Pre-Op Diagnosis: Right Toe Osteomyelitis Post-Op Diagnosis: Right Toe Osteomyelitis I identified the patient and participated in the time-out.: Yes Procedure Operation Date: 09/12/24 10:30 Actual Procedures p Right First and Second Partial Toe Amputations(Right) - Vinh Mazariegos DPM Surgeon Vinh Mazariegos DPM Boom Cat Operator NONE Estimated Blood Loss 10 Findings Consistent with Post-Op Diagnosis Specimens Right first and second toe sent for permanent pathology with assistance representative samples sent for proximal margin. Additional affected bone from right hallux sent for bone culture. Anesthesia Type MAC Complications none Disposition Accompanied Patient To Recovery: Yes Disposition: Recovery Room Indications Patient is a recent hospital consult of hours to present to the hospital from his group home facility for evaluation and treatment of right foot osteomyelitis. He had developed this over several months after developing wounds to the first and second toes. We discussed that the best treatment for these toes at this point is amputation of the first and second toes and he is amenable to this. All questions were answered preoperatively. Preoperative instructions, postop instructions, relative risks, and outcomes were all discussed at length. Consent was obtained for this surgery. Description of Procedure Patient was brought to the operating table and left on his hospital bed for the duration of the procedure. The right lower extremity was scrubbed, prepped,, and draped in the usual aseptic manner. Attention was directed to the right foot where the first and second toes were noted to be necrotic and nonviable. No tourniquet was utilized during the duration of this procedure given the obvious vascular impairment clinically. Attention was directed to the right hallux where 2 converging semielliptical incisions were made circumferentially around the proximal phalanx. The incision was carried down to the level of the proximal phalanx with sharp dissection techniques and disarticulated at the level of the metatarsal phalangeal joint. This was passed off to the back table in one specimen. This was performed at the level of the metatarsophalangeal joint with all infectious material noted distal to this. The plantar flap was able to be pulled dorsally with minimal tension to allow for primary closure with continued removal of all infectious burden. The incision was flushed with copious amounts of sterile saline and closure was performed utilizing 2-0 nylon in a simple interrupted and horizontal mattress fashion. Attention was directed to the right Second toe where 2 converging semielliptical incisions were made circumferentially around the proximal phalanx. The incision was carried down to the level of the proximal phalanx with sharp dissection techniques and disarticulated at the level of the Proximal interphalangeal joint. This was passed off to the back table in one specimen. This was performed at the level of the Proximal interphalangeal joint with all infectious material noted distal to this. The plantar And dorsal flaps were able to be pulled Together with minimal tension to allow for primary closure with continued removal of all infectious burden. The incision was flushed with copious amounts of sterile saline and closure was performed utilizing 2-0 nylon in a simple interrupted and horizontal mattress fashion. All incisions were dressed with Xeroform gauze, 4 x 4 gauze, Kerlix, and an Mayank wrap. The Mayank wrap was loosely applied to prevent over compression on this avascular limb. The patient tolerated the procedure well and was transferred [facility] with vital signs stable and vascular status intact to the feet. The patient will be transferred to the recovery room and back to the floor for further monitoring, likely discharged once pathology is available. I attest to the content of the Intraoperative Record and any orders documented therein. Any exceptions are noted below.
[2024-09-12] MEDS: ATORVASTATIN 10 MG TAB PO SCH (20:16)
[2024-09-12] MEDS: LANTUS PER UNIT CHARGE SC ONE (20:17)
[2024-09-13] MEDS: MAGNESIUM SULFATE / D5W 1 GM/100 ML BAG IV ONE (03:57)
[2024-09-13 06:26] LABS: Hematocrit (blood only) 35.3 % (42.0-52.0); Hemoglobin 11.7 g/dl (14.0-18.0); Mean Corpuscular Hemoglobin 28.8 pg (25.0-34.0); Mean Corpuscular Hgb Conc 33.1 g/dL (32.0-36.0); Mean Corpuscular Volume 86.9 fL (80.0-100.0); Mean Platelet Volume 10.8 fL (9.4-12.4); Platelet Count 224 K/uL (130-400); RDW Coefficient of Variation 13.3 % (11.5-14.5); RDW Standard Deviation 42.5 fL (36.4-46.3); Red Blood Count 4.06 M/uL (4.70-6.10); White Blood Count 6.17 K/ul (4.8-10.8)
[2024-09-13 06:58] LABS: BUN Creatinine Ratio 16.1 (10-20); Calcium 8.5 mg/dl (8.6-10.3); Creatinine Clr Calc Pharmacy 35.2 ml/min; Magnesium 2.3 mg/dl (1.7-2.4); Potassium 4.8 mmol/L (3.5-5.1)
--- NOTE | 2024-09-13 08:48 | Infectious Disease Progress Nt ---
Date of Service September 13, 2024 Assessment & Plan (1) Cellulitis: (2) Acute osteomyelitis of toe of right foot: (3) Type 2 diabetes mellitus with polyneuropathy: (4) Failure of outpatient treatment: Plan 69yo M inmate with h/o IDDM, h/o CVA in 2017, HFpEF, CKD III, rheumatoid arthritis on plaquenil, UC on weekly Enbrel, h/o left first and second toe OM 08/2023 s/p left first and 2nd toe amp (cx MRSA and Bacteroides, tx with doxy/augmentin x 7d postop), recent ED visit 08/12/24 with ulcers on toes 1-3 (no leukocytosis, XR neg for OM, dcd from ED on doxycycline x 7 days, seen in ED 08/17 with RLE edema and ulcers (dcd on Keflex x 7d, WCX returned with PsA and MSSA) who presented on 09/09 with worsening right toe wound with purulent discharge. Has chronic bl lower extremity edema. Here, he was afebrile, vss. WBC 5.68, Cr 1.53, AST/ALT wnl. Lactate wnl. CRP 0.58. COVID neg. CT right foot with right toe wound with associated soft tissue swelling c/f cellulitis, subtle erosion of distal tuft of right first distal phalanx c/f acute OM, no additional sites of OM in the right foot, dorsal right foot edema, no fluid collections within the right foot. He has been started on daptomycin and zosyn. ID consulted 09/09. I did keep on abx given cellulitis and purulent drainage. S/p right first and second toe partial amputation on 09/12. OR Cx and path pending. Agree with stopping daptomycyin given no growth of Staph. Given ESBL organism, I did change zosyn to meropenem. Await path and OR cultures. # OM of distal tuft of right first distal phalanx # RLE cellulitis # Type 2 DM # CKD III # RA and UC on plaquenil and Enbrel - f/u OR cx and path - await full op note - abx changed to meropenem given ESBL organism - if no residual OM on proximal margin, then he can complete a short course (7- 10d total) of abx for cellulitis based on culture growth ID will continue to follow. Please note that there will be no ID notes over the weekend. If questions or concerns arise, please contact the Infectious Disease Call Center and ask to speak with the covering ID physician. Dr. Ramirez will take over on Monday. Alea Fischer MD [facility], Division of Infectious Diseases Admission and Anticipated Discharge Date Admission Date: September 09, 2024 Subjective This patient recommendation is based on a telemedicine consult request which was completed asynchronously through chart review and information provided by the primary physician. The patient was not seen or examined today. The evaluation is consultative in nature and all patient care and treatment decisions can either be accepted or rejected by the patient's primary hospital-based treating physician using their own independent medical judgment for their patient. Time Spent Reviewing Chart: 31+ minutes Results & Data Vital Signs (Past 12 Hours) Vital Signs Temp Pulse Pulse Resp BP BP Pulse Ox 09/13/24 07:54 36.6 C 66 18 166/74 H 97 09/13/24 06:50 67 09/13/24 02:36 36.4 C L 66 17 137/72 95 09/13/24 00:11 36.4 C L 64 18 155/78 H 96 09/12/24 21:49 67 O2 Del Method 09/13/24 07:54 Room Air 09/13/24 06:50 09/13/24 02:36 Room Air 09/13/24 00:11 Room Air 09/12/24 21:49 Laboratory Results Labs reviewed. Diagnostic Findings Imaging reviewed. (1) Cellulitis Laterality: right Site of cellulitis: extremity Site of cellulitis of extremity: lower extremity Qualified Code(s): L03.115 - Cellulitis of right lower limb
[2024-09-13] MEDS: LANTUS PER UNIT CHARGE SC SCH ×2 (09:12→20:27)
--- NOTE | 2024-09-13 10:50 | Hospitalist Progress Note ---
Date of Service September 13, 2024 Assessment & Plan (1) Acute osteomyelitis of toe of right foot: Plan: Recent wound culture from 08/12/2024 shows MSSA plus Pseudomonas aeruginosa. Patient has history of MRSA diabetic ulcer in the past -POD#1 from partial amputation of right first and second toe 09/12 -daptomycin d/c'd since no growth of staph. Given ESBL, zosyn changed to meropenem -ID following -f/u surgical pathology, if no OM on proximal margin, can complete a short course of abx for cellulitis. (2) Type 2 diabetes mellitus with polyneuropathy: Plan: Accu-Cheks before every meal and nightly with sliding scale insulin coverage Pharmacy managing glycemic control (3) HTN (hypertension): (4) Hyperlipidemia: (5) H/O: CVA (cerebrovascular accident): (6) Rheumatoid arthritis: Plan: Hydroxychloroquine Patient is immunosuppressed, will hold off on immunosuppressants at this point given active infection with osteomyelitis This can be resumed on discharge once infection is under better control (7) Ulcerative colitis: Plan: Patient is on weekly Enbrel (every Monday) (8) CKD stage 3b, GFR 30-44 ml/min: Plan: cr stable Plan CODE STATUS: Full code DVT prophylaxis: Heparin subcutaneous Once ready for D/C call residential for physician to physician signout [phone] Admission and Anticipated Discharge Date Admission Date: September 09, 2024 Subjective No events overnight, pt resting comfortably in bed. Review of Systems Review of Systems: CONST: Negative for fever, body aches and chills. HENT: Negative for neck pain/stiffness, headache, congestion, sore throat, swelling. EYES: Negative for discharge/pain or vision changes. RESP: Negative for cough/hemoptysis and shortness of breath. CV: Negative chest pain, difficulty breathing, palpitations. ABD: Negative pain, nausea, vomiting. : Negative increase frequency, dysuria, blood in urine or stool. MUSC: Negative for muscle aches, edema. SKIN: Negative rash, lesions/sores. NEURO: Negative headache, dizziness, weakness. Physical Exam Physical Exam: GENERAL APPEARANCE NAD, activity normal for age, well developed/ well nourished, no cyanosis, pallor, or diaphoresis. EYES lids/conjunctiva normal. EARS/NOSE/THROAT Mucous membranes moist, nares normal, lips/teeth normal uvula midline without oral pharyngeal erythema, exudate or swelling TMs normal bilaterally. No lymphangitis/lymphedema. HEAD/NECK normocephalic atraumatic, no facial trauma, neck is supple. RESPIRATORY respiratory effort normal, speaks in full sentences, no tripod position, no accessory muscle use. Lungs clear to auscultation without rhonchi, wheezes, rales CARDIAC Regular rate and rhythm, no edema. ABDOMINAL Soft, ND/NT. No evidence of fluid wave. No pulsatile masses on exam, rebound tenderness, Díaz sign or pain over Mcburney's point. MUSCLES/EXTREMITIES No abnormal range of motion, no swelling. Right foot wrapped in nadia bandage SKIN Warm, pink and dry. No rashes, dermatoses, petechiae or lesions. NEUROLOGICAL Speech is clear and appropriate. Normal level of consciousness. Gait and coordination are normal. 5/5 strength in all extremities. PSYCH Normal mood and affect. Judgement/competence is appropriate Results & Data Results & Data Vital Signs (Past 12 Hours) Vital Signs Temp Pulse Pulse Resp BP BP Pulse Ox 09/13/24 07:54 36.6 C 66 18 166/74 H 97 09/13/24 06:50 67 09/13/24 02:36 36.4 C L 66 17 137/72 95 09/13/24 00:11 36.4 C L 64 18 155/78 H 96 O2 Del Method 09/13/24 07:54 Room Air 09/13/24 06:50 09/13/24 02:36 Room Air 09/13/24 00:11 Room Air PG Care Time/CCT Total # of Minutes Spent Total Time Spent with Patient: Total time spent is greater than 50% in coordination of care (as documented) at patient's floor/unit and/or counseling patient: Coding Level of Care Code 27135 SUB INP/OBS CARE 2/35MIN Diagnoses Acute osteomyelitis of toe of right foot M86.171 Type 2 diabetes mellitus with polyneuropathy E11.42 HTN (hypertension) I10 Hypertension type: unspecified Hyperlipidemia, unspecified hyperlipidemia type E78.5 Hyperlipidemia type: unspecified H/O: CVA (cerebrovascular accident) Z86.73 Rheumatoid arthritis M06.9 Ulcerative colitis K51.90 CKD stage 3b, GFR 30-44 ml/min N18.32 (3) HTN (hypertension) Hypertension type: unspecified Qualified Code(s): I10 - Essential (primary) hypertension (4) Hyperlipidemia Hyperlipidemia type: unspecified Qualified Code(s): E78.5 - Hyperlipidemia, unspecified
[2024-09-13] MEDS: MEROPENEM 500 MG in SYRINGE 0 ML IV SCH (11:31)
[2024-09-13] MEDS: LANTUS PER UNIT CHARGE SC ONE (12:21)
[2024-09-13] MEDS: INSULIN HUMAN REGULAR PER UNIT 5 UNITS in SYRINGE 4.95 ML IV ONE (12:56)
--- NOTE | 2024-09-13 15:21 | Pharmacy Report ---
Pharmacy Glycemic Short Note 2 - Date of Service September 13, 2024 - Glycemic Short BSG Results (Last 24 hours): 09/12/24 09/12/24 09/12/24 17:08 20:00 20:02 Glucose POC Glucose 295 H 332 H* 340 H* 09/13/24 09/13/24 09/13/24 05:38 08:19 11:59 Glucose 311 H* POC Glucose 291 H 414 H* 09/13/24 09/13/24 09/13/24 12:02 14:33 14:35 Glucose POC Glucose 439 H* 319 H* 304 H* OUTPATIENT ANTIDIABETIC REGIMEN: * NPH 20 units SQ qAM, 18 units SQ qPM * Novolin R 10 units BID with meals and SS * Metformin 500mg po BID HbA1c 9% 09/10/24 ASSESSMENT: 09/13 * Kwaku received 55 units of insulin yesterday (25 were basal) * Fasting BSG this AM still elevated, will aim for basal dosage closer to a weight based stress of 3 (yesterday's dose was close to 2) based on bedtime BSG * All BSGs still above goal range, Lunchtime BSG up to the 400s, tightened carbohydrate ratio with lunchtime, gave a one time dose of IV regular insulin again to help bring down BSGs 09/12 * Post-op day #0. BSGs improving, fasting 178 mg/dL on lab this morning 244 mg/dL on POC check- will increase lantus scale for PM dose * BSG at lunch 270 mg/dL- as patient was NPO will tighten correction factor,c ontinue current carb coverage for now 09/11/24 * BSGs above goal today with critical high of 512 around lunch time. Pt will get a one time dose of IV insulin 5 units * Pt was also hypoglycemic again yesterday late afternoon hitting a low of 39; this can be possibly d/t insulin stacking. * Correction factor loosened from 25 to 30 d/t lows after hyperglycemia indicating it was possibly too tight. Carb ratio will be tightened d/t pt's hyperglycemia today after his breakfast. * NPH was changed to Lantus yesterday evening. A one time scaled HS order put in as well. * Pt will be closely monitored considering extreme swings in his BSG and anticipated NPO status for his upcoming surgery tomorrow. 09/10/24 * Patient's BG increased last night and this evening due to holding basal, as patient had critical hypoglycemia upon admission. * Resumed NPH and and conservative NovoLog CF/CR at breakfast, resulting in BG in 300s at lunch, will tighten CF/CR and lower goal range and add additional check at 1445 to bring patient back to goal blood sugar. 09/09/24 * 69 year old male to be admitted today via the ED for a worsening right toe wound with purulent discharge. (Found on CT to be osteomyelitis with cellulitis). He was started on daptomycin and zosyn. Pharmacy was consulted for glycemic management while he is admitted * Patient has history of HHNC as well as stage III CKD (baseline SCr between 1.5 and 1.7). * Patient had an episode of hypoglycemia in the ED this morning--BSG of 27mg/dL which improved to 80mg/dL after receiving 25ml of D50. Because of this, basal insulin will be held for now. Conservative bolus insulin will be ordered--Loose CF and no CR for now until patient is eating and BSGs have improved. * He will be followed closely and insulin will be adjusted as needed. PLAN FOR INPATIENT GLYCEMIC CONTROL: * Basal insulin * Lantus 25 units QD and 0-15 units (based on BSG) HS * Bolus insulin * NovoLog per scale ACHS or Q6hrs while NPO * Goal Range: Low 110 mg/dL - High 180 mg/dL * Correction Factor: 25 mg/dL/unit * Nutritional / Prandial insulin per carb ratio: 1 unit per 5 grams CHO consumed
--- NOTE | 2024-09-13 21:15 | Podiatry Progress Note ---
Date of Service September 13, 2024 Assessment & Plan (1) Osteomyelitis: (2) Acute osteomyelitis of toe of right foot: (3) Type 2 diabetes mellitus with polyneuropathy: (4) Diabetic ulcer of left foot associated with diabetes mellitus due to underlying condition, with necrosis of bone: (5) Diabetes mellitus with peripheral angiopathy with gangrene: Plan - Pt examined and evaluated. - Dressing left intact today POD #1. - Can be changed every 2-3 days by nursing with similar dry sterile dressing. Sooner if soiled/wet. - Can be d/c back to facility at any point, surgically; pathology pending for definitive care per ID. - Should likely have 1-2 weeks oral abx for empiric therapy. Sutures removed by staff at facility at 2 weeks postop. - Will check back in early next week if he remains inpatient. Admission and Anticipated Discharge Date Admission Date: September 09, 2024 Subjective Pt seen at bedside at lunch time. No new concerns. No pain to the foot. Resting comfortably, with wood patternmaker present. No postoperative pain. Review of Systems Constitutional: no fever, no chills and no fatigue Eyes: no problem reported Ear, Nose, Mouth, Throat: no problem reported Respiratory: no problem reported Cardiovascular: + edema; no problem reported Gastrointestinal: no nausea, no vomiting and no problem reported Musculoskeletal: no problem reported Integumentary: + non-healing lesions, + skin ulcer, + w ounds and + erythema Neurologic: + loss of sensation, + numbness and + pa resthesia; no generalized weakness Psychiatric: no problem reported Physical Exam Physical Exam: Lower extremity focused exam: DP/PT pulses 1/4 bilaterally. CFT is brisk to the digits, except for the right first and second toes. Surgical dressing left intact today 1 day s/p right hallux and second toe amputations. No ascending cellulitis appreciated. Constitutional: WD/WN, vitals as above + ill appearing and average body habitus Eyes: PERRL, conjunctivae normal, anicteric sclerae ENMT: external ear and nose normal, oropharynx normal Mouth: + poor dentition Neck: trachea midline, no thyromegaly normal visual inspection Respiratory: normal respiratory effort; no respiratory distress Cardiovascular: Rate/Rhythm: regular rate and regular rhythm Vessels: posterior tibial pulses present and dorsalis pedis pulses present Extremities: + pedal edema; + abnormal capillary refill and no calf tenderness Chest (Breasts): Chest: normal inspection of chest Gastrointestinal (Abdomen): Inspection/Auscultation: abdomen normal to inspection Percussion/Palpation: + abdomen tender and abdomen soft Musculoskeletal: no cyanosis or clubbing, extremities motor strength 5/5 Head/Neck/Chest: normocephalic and head atraumatic Extremities: extremities normal to inspection, + limited ROM of lower extremity (Ankle equinus noted, consistent with age) Bilateral and + foot abnormality Skin: + ulcer, + skin atrophy, + erythema and + nails dystrophic; no fluctulance Neurologic: awake; no focal motor deficits Psychiatric: A+Ox3, euthymic affect Results & Data Results & Data Vital Signs (Past 12 Hours) Vital Signs Temp Pulse Pulse Resp BP Pulse Ox O2 Del Method 09/13/24 19:20 36.8 C 67 16 133/74 98 Room Air 09/13/24 16:02 36.5 C 76 16 118/68 99 Room Air 09/13/24 15:23 81 09/13/24 10:40 37 C 68 18 148/74 H 96 Room Air (1) Osteomyelitis Laterality: right Osteomyelitis location: foot Osteomyelitis type: other acute Qualified Code(s): M86.171 - Other acute osteomyelitis, right ankle and foot (4) Diabetic ulcer of left foot associated with diabetes mellitus due to underlying condition, with necrosis of bone Diabetic foot ulcer location: toe Qualified Code(s): E08.621 - Diabetes mellitus due to underlying condition with foot ulcer; L97.524 - Non-pressure chronic ulcer of other part of left foot with necrosis of bone (5) 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
[2024-09-14 06:30] LABS: Hemoglobin 11.9 g/dl (14.0-18.0); Mean Corpuscular Hemoglobin 28.5 pg (25.0-34.0); Mean Corpuscular Hgb Conc 33.1 g/dL (32.0-36.0); Mean Corpuscular Volume 86.3 fL (80.0-100.0); Mean Platelet Volume 10.4 fL (9.4-12.4); Platelet Count 213 K/uL (130-400); RDW Coefficient of Variation 13.4 % (11.5-14.5); RDW Standard Deviation 42.4 fL (36.4-46.3); Red Blood Count 4.17 M/uL (4.70-6.10); White Blood Count 5.75 K/ul (4.8-10.8)
[2024-09-14 06:50] LABS: Calcium 8.7 mg/dl (8.6-10.3); Creatinine Clr Calc Pharmacy 45.1 ml/min; Potassium 4.4 mmol/L (3.5-5.1)
[2024-09-14] MEDS ORDERED: LANTUS PER UNIT CHARGE SC SCH (09:00)
[2024-09-14] MEDS: LANTUS PER UNIT CHARGE SC SCH ×2 (09:08→18:06)
--- NOTE | 2024-09-14 10:57 | Hospitalist Progress Note ---
Date of Service September 14, 2024 Assessment & Plan (1) Acute osteomyelitis of toe of right foot: Plan: Recent wound culture from 08/12/2024 shows MSSA plus Pseudomonas aeruginosa. 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 Given ESBL, zosyn changed to meropenem -ID following -f/u surgical pathology, if no OM on proximal margin, can complete a short course of abx for cellulitis based on culture growth. (2) Type 2 diabetes mellitus with polyneuropathy: Plan: Accu-Cheks before every meal and nightly with sliding scale insulin coverage Pharmacy managing glycemic control (3) HTN (hypertension): (4) Hyperlipidemia: (5) H/O: CVA (cerebrovascular accident): (6) Rheumatoid arthritis: Plan: Hydroxychloroquine Patient is immunosuppressed, will hold off on immunosuppressants at this point given active infection with osteomyelitis This can be resumed on discharge once infection is under better control (7) Ulcerative colitis: Plan: Patient is on weekly Enbrel (every Monday) (8) CKD stage 3b, GFR 30-44 ml/min: Plan: cr stable Plan CODE STATUS: Full code DVT prophylaxis: Heparin subcutaneous Once ready for D/C call [facility] for physician to physician signout [phone] x [phone] Admission and Anticipated Discharge Date Admission Date: September 09, 2024 Subjective No events overnight. Pt resting comfortably eating his breakfast. Review of Systems Review of Systems: CONST: Negative for fever, body aches and chills. HENT: Negative for neck pain/stiffness, headache, congestion, sore throat, swelling. EYES: Negative for discharge/pain or vision changes. RESP: Negative for cough/hemoptysis and shortness of breath. CV: Negative chest pain, difficulty breathing, palpitations. ABD: Negative pain, nausea, vomiting. : Negative increase frequency, dysuria, blood in urine or stool. MUSC: Negative for muscle aches, edema. SKIN: Negative rash, lesions/sores. NEURO: Negative headache, dizziness, weakness. Physical Exam Physical Exam: GENERAL APPEARANCE NAD, activity normal for age, well developed/ well nourished, no cyanosis, pallor, or diaphoresis. EYES lids/conjunctiva normal. EARS/NOSE/THROAT Mucous membranes moist, nares normal, lips/teeth normal uvula midline without oral pharyngeal erythema, exudate or swelling TMs normal bilaterally. No lymphangitis/lymphedema. HEAD/NECK normocephalic atraumatic, no facial trauma, neck is supple. RESPIRATORY respiratory effort normal, speaks in full sentences, no tripod position, no accessory muscle use. Lungs clear to auscultation without rhonchi, wheezes, rales CARDIAC Regular rate and rhythm, no edema. ABDOMINAL Soft, ND/NT. No evidence of fluid wave. No pulsatile masses on exam, rebound tenderness, Díaz sign or pain over Mcburney's point. MUSCLES/EXTREMITIES No abnormal range of motion, no swelling. Right foot wrapped in nadia bandage SKIN Warm, pink and dry. No rashes, dermatoses, petechiae or lesions. NEUROLOGICAL Speech is clear and appropriate. Normal level of consciousness. Gait and coordination are normal. 5/5 strength in all extremities. PSYCH Normal mood and affect. Judgement/competence is appropriate Results & Data Results & Data Vital Signs (Past 12 Hours) Vital Signs Temp Pulse Pulse Resp BP BP Pulse Ox 09/14/24 07:51 36.7 C 67 16 161/75 H 96 09/14/24 07:09 65 09/14/24 03:32 36.6 C 67 18 157/79 H 96 09/13/24 23:23 36.8 C 68 18 134/81 96 O2 Del Method 09/14/24 07:51 Room Air 09/14/24 07:09 09/14/24 03:32 Room Air 09/13/24 23:23 Room Air PG Care Time/CCT Total # of Minutes Spent Total Time Spent with Patient: Total time spent is greater than 50% in coordination of care (as documented) at patient's floor/unit and/or counseling patient: Coding Level of Care Code 59433 SUB INP/OBS CARE 235MIN Diagnoses Acute osteomyelitis of toe of right foot M86.171 Type 2 diabetes mellitus with polyneuropathy E11.42 HTN (hypertension) I10 Hypertension type: unspecified Hyperlipidemia, unspecified hyperlipidemia type E78.5 Hyperlipidemia type: unspecified H/O: CVA (cerebrovascular accident) Z86.73 Rheumatoid arthritis M06.9 Ulcerative colitis K51.90 CKD stage 3b, GFR 30-44 ml/min N18.32 (3) HTN (hypertension) Hypertension type: unspecified Qualified Code(s): I10 - Essential (primary) hypertension (4) Hyperlipidemia Hyperlipidemia type: unspecified Qualified Code(s): E78.5 - Hyperlipidemia, unspecified
[2024-09-14] MEDS: INSULIN ASPART PER UNIT CHARGE SC SCH (18:05)
[2024-09-15 06:29] LABS: Hematocrit (blood only) 38.7 % (42.0-52.0); Hemoglobin 12.3 g/dl (14.0-18.0); Mean Corpuscular Hgb Conc 31.8 g/dL (32.0-36.0); Mean Platelet Volume 10.6 fL (9.4-12.4); Platelet Count 229 K/uL (130-400); RDW Coefficient of Variation 13.6 % (11.5-14.5); RDW Standard Deviation 43.9 fL (36.4-46.3); White Blood Count 5.85 K/ul (4.8-10.8)
[2024-09-15 06:45] LABS: BUN Creatinine Ratio 22.9 (10-20); Calcium 9.1 mg/dl (8.6-10.3); Creatinine Clr Calc Pharmacy 50.1 ml/min; Potassium 4.5 mmol/L (3.5-5.1)
[2024-09-15] MEDS: LANTUS PER UNIT CHARGE SC SCH (08:50)
[2024-09-15] MEDS: INSULIN ASPART PER UNIT CHARGE SC SCH ×3 (08:50→23:39)
--- NOTE | 2024-09-15 10:03 | Hospitalist Progress Note ---
Date of Service September 15, 2024 Assessment & Plan (1) Acute osteomyelitis of toe of right foot: Plan: Recent wound culture from 08/12/2024 shows MSSA plus Pseudomonas aeruginosa. Patient has history of MRSA diabetic ulcer in the past -POD#3 from partial amputation of right first and second toe 09/12 -daptomycin d/c'd since no growth of staph. Given ESBL, zosyn changed to meropenem as per ID -ID following -f/u surgical pathology, if no OM on proximal margin, can complete a short course of abx for cellulitis based on culture growth. (2) Type 2 diabetes mellitus with polyneuropathy: Plan: Accu-Cheks before every meal and nightly with sliding scale insulin coverage Pharmacy managing glycemic control (3) HTN (hypertension): Plan: -hydralizine, norvasc (4) Hyperlipidemia: Plan: -atorvastatin (5) H/O: CVA (cerebrovascular accident): (6) Rheumatoid arthritis: Plan: Hydroxychloroquine Patient is immunosuppressed, will hold off on immunosuppressants at this point given active infection with osteomyelitis This can be resumed on discharge once infection is under better control (7) Ulcerative colitis: Plan: Patient is on weekly Enbrel (every Monday) (8) CKD stage 3b, GFR 30-44 ml/min: Plan: cr stable Plan CODE STATUS: Full code DVT prophylaxis: Heparin subcutaneous Can D/C on oral abx, once surgical pathology resulted Once ready for D/C call [facility] for physician to physician signout [phone] x [phone] Admission and Anticipated Discharge Date Admission Date: September 09, 2024 Subjective No events overnight. Pt resting comfortably. Review of Systems Review of Systems: CONST: Negative for fever, body aches and chills. HENT: Negative for neck pain/stiffness, headache, congestion, sore throat, swelling. EYES: Negative for discharge/pain or vision changes. RESP: Negative for cough/hemoptysis and shortness of breath. CV: Negative chest pain, difficulty breathing, palpitations. ABD: Negative pain, nausea, vomiting. : Negative increase frequency, dysuria, blood in urine or stool. MUSC: Negative for muscle aches, edema. SKIN: Negative rash, lesions/sores. NEURO: Negative headache, dizziness, weakness. Physical Exam Physical Exam: GENERAL APPEARANCE NAD, activity normal for age, well developed/ well nourished, no cyanosis, pallor, or diaphoresis. EYES lids/conjunctiva normal. EARS/NOSE/THROAT Mucous membranes moist, nares normal, lips/teeth normal uvula midline without oral pharyngeal erythema, exudate or swelling TMs normal bilaterally. No lymphangitis/lymphedema. HEAD/NECK normocephalic atraumatic, no facial trauma, neck is supple. RESPIRATORY respiratory effort normal, speaks in full sentences, no tripod position, no accessory muscle use. Lungs clear to auscultation without rhonchi, wheezes, rales CARDIAC Regular rate and rhythm, no edema. ABDOMINAL Soft, ND/NT. No evidence of fluid wave. No pulsatile masses on exam, rebound tenderness, Díaz sign or pain over Mcburney's point. MUSCLES/EXTREMITIES No abnormal range of motion, no swelling. Right foot wrapped in nadia bandage SKIN Warm, pink and dry. No rashes, dermatoses, petechiae or lesions. NEUROLOGICAL Speech is clear and appropriate. Normal level of consciousness. Gait and coordination are normal. 5/5 strength in all extremities. PSYCH Normal mood and affect. Judgement/competence is appropriate Results & Data Results & Data Vital Signs (Past 12 Hours) Vital Signs Temp Pulse Pulse Resp BP Pulse Ox O2 Del Method 09/15/24 07:13 36.8 C 67 14 176/84 H 99 Room Air 09/15/24 07:04 67 09/15/24 02:13 36.7 C 65 14 154/79 H 99 Room Air 09/14/24 23:22 36.9 C 69 16 162/76 H 98 Room Air PG Care Time/CCT Total # of Minutes Spent Total Time Spent with Patient: Total time spent is greater than 50% in coordination of care (as documented) at patient's floor/unit and/or counseling patient: Coding Level of Care Code 97452 SUB INP/OBS CARE 2/35MIN Diagnoses Acute osteomyelitis of toe of right foot M86.171 Type 2 diabetes mellitus with polyneuropathy E11.42 HTN (hypertension) I10 Hypertension type: unspecified Hyperlipidemia, unspecified hyperlipidemia type E78.5 Hyperlipidemia type: unspecified H/O: CVA (cerebrovascular accident) Z86.73 Rheumatoid arthritis M06.9 Ulcerative colitis K51.90 CKD stage 3b, GFR 30-44 ml/min N18.32 (3) HTN (hypertension) Hypertension type: unspecified Qualified Code(s): I10 - Essential (primary) hypertension (4) Hyperlipidemia Hyperlipidemia type: unspecified Qualified Code(s): E78.5 - Hyperlipidemia, unspecified
[2024-09-16] MEDS: CARBOHYDRATES FOR HYPOGLYCEMIA PO PRN (03:29)
[2024-09-16] MEDS: LANTUS PER UNIT CHARGE SC SCH (08:25)
--- NOTE | 2024-09-16 10:17 | Pharmacy Report ---
Pharmacy Glycemic Short Note 2 - Date of Service September 16, 2024 - Glycemic Short BSG Results (Last 24 hours): 09/15/24 09/15/24 09/15/24 12:03 17:10 20:35 POC Glucose 280 H 234 H 174 H 09/15/24 09/16/24 09/16/24 23:35 03:26 03:57 POC Glucose 95 49 L* 64 L* 09/16/24 09/16/24 04:22 07:53 POC Glucose 100 H 215 H OUTPATIENT ANTIDIABETIC REGIMEN: * NPH 20 units SQ qAM, 18 units SQ qPM * Novolin R 10 units BID with meals and SS * Metformin 500mg po BID HbA1c 9% 09/10/24 ASSESSMENT: 09/16 * Kwaku received 95 units of insulin yesterday (35 were basal) * Hypoglycemic overnight (asymptomatic) treated with 45gm CHO, BSGs this AM elevated-- not true fasting since hypoglycemia treatment. Unclear cause for hypoglycemia, potentially too much basal insulin or insulin needs decrease throughout the day. Will decrease basal insulin by 15% and trial tighter breakfast parameters with just breakfast. 09/13 * Kwaku received 55 units of insulin yesterday (25 were basal) * Fasting BSG this AM still elevated, will aim for basal dosage closer to a weight based stress of 3 (yesterday's dose was close to 2) based on bedtime BSG * All BSGs still above goal range, Lunchtime BSG up to the 400s, tightened carbohydrate ratio with lunchtime, gave a one time dose of IV regular insulin again to help bring down BSGs 09/12 * Post-op day #0. BSGs improving, fasting 178 mg/dL on lab this morning 244 mg/dL on POC check- will increase lantus scale for PM dose * BSG at lunch 270 mg/dL- as patient was NPO will tighten correction factor,continue current carb coverage for now 09/11/24 * BSGs above goal today with critical high of 512 around lunch time. Pt will get a one time dose of IV insulin 5 units * Pt was also hypoglycemic again yesterday late afternoon hitting a low of 39; this can be possibly d/t insulin stacking. * Correction factor loosened from 25 to 30 d/t lows after hyperglycemia indicating it was possibly too tight. Carb ratio will be tightened d/t pt's hyperglycemia today after his breakfast. * NPH was changed to Lantus yesterday evening. A one time scaled HS order put in as well. * Pt will be closely monitored considering extreme swings in his BSG and anticipated NPO status for his upcoming surgery tomorrow. 09/10/24 * Patient's BG increased last night and this evening due to holding basal, as patient had critical hypoglycemia upon admission. * Resumed NPH and and conservative NovoLog CF/CR at breakfast, resulting in BG in 300s at lunch, will tighten CF/CR and lower goal range and add additional check at 1445 to bring patient back to goal blood sugar. 09/09/24 * 69 year old male to be admitted today via the ED for a worsening right toe wound with purulent discharge. (Found on CT to be osteomyelitis with cellulitis). He was started on daptomycin and zosyn. Pharmacy was consulted for glycemic management while he is admitted * Patient has history of HHNC as well as stage III CKD (baseline SCr between 1.5 and 1.7). * Patient had an episode of hypoglycemia in the ED this morning--BSG of 27mg/dL which improved to 80mg/dL after receiving 25ml of D50. Because of this, basal insulin will be held for now. Conservative bolus insulin will be ordered--Loose CF and no CR for now until patient is eating and BSGs have improved. * He will be followed closely and insulin will be adjusted as needed. PLAN FOR INPATIENT GLYCEMIC CONTROL: * Basal insulin * Lantus 30 units SQ QAM * Bolus insulin- breakfast * NovoLog per scale QDB * Goal Range: Low 110 mg/dL - High 140 mg/dL * Correction Factor: 20 mg/dL/unit * Nutritional / Prandial insulin per carb ratio: 1 unit per 4 grams CHO consumed * Bolus insulin- lunch, dinner and bedtime * NovoLog per scale QDL, QDD, HS or Q6hrs while NPO * Goal Range: Low 110 mg/dL - High 180 mg/dL * Correction Factor: 30 mg/dL/unit * Nutritional / Prandial insulin per carb ratio: 1 unit per 5 grams CHO consumed
[2024-09-16] MEDS ORDERED: INSULIN ASPART PER UNIT CHARGE SC SCH (11:30)
[2024-09-16] MEDS: INSULIN ASPART PER UNIT CHARGE SC SCH (12:31)
--- NOTE | 2024-09-16 14:02 | Infectious Disease Progress Nt ---
Date of Service September 16, 2024 Assessment & Plan (1) Cellulitis: (2) Acute osteomyelitis of toe of right foot: (3) Type 2 diabetes mellitus with polyneuropathy: (4) Failure of outpatient treatment: Plan 69yo M inmate with h/o IDDM, h/o CVA in 2017, HFpEF, CKD III, rheumatoid arthritis on plaquenil, UC on weekly Enbrel, h/o left first and second toe OM 08/2023 s/p left first and 2nd toe amp (cx MRSA and Bacteroides, tx with doxy/augmentin x 7d postop), recent ED visit 08/12/24 with ulcers on toes 1-3 (no leukocytosis, XR neg for OM, dcd from ED on doxycycline x 7 days, seen in ED 08/17 with RLE edema and ulcers (dcd on Keflex x 7d, WCX returned with PsA and MSSA) who presented on 09/09 with worsening right toe wound with purulent discharge. Has chronic bl lower extremity edema. Here, he was afebrile, vss. WBC 5.68, Cr 1.53, AST/ALT wnl. Lactate wnl. CRP 0.58. COVID neg. CT right foot with right toe wound with associated soft tissue swelling c/f cellulitis, subtle erosion of distal tuft of right first distal phalanx c/f acute OM, no additional sites of OM in the right foot, dorsal right foot edema, no fluid collections within the right foot. He has been started on daptomycin and zosyn. ID consulted 09/09. ID kept on abx given cellulitis and purulent drainage. S/p right first and second toe partial amputation on 09/12. OR Cx and path pending finalization . Daptomycyin discontinued-no growth of Staph. Given ESBL organism, ID changed zosyn to meropenem. Await path and OR cultures. # OM of distal tuft of right first distal phalanx # RLE cellulitis # Type 2 DM # CKD III # RA and UC on plaquenil and Enbrel 09/09 wound cx + esbl ecoli 09/12 OR culture( + anaerobes) finefroilanldia magna - f/u OR cx and path - await full op note - abx changed to meropenem given ESBL organism pending OR final cx - if no residual OM on proximal margin, then he can complete a short course (7- 10d total) of abx for cellulitis based on culture growth ID will continue to follow Kassy Ramirez MD, MPH Infectious Disease [facility] Call [phone] with questions Admission and Anticipated Discharge Date Admission Date: September 09, 2024 Subjective This patient recommendation is based on a telemedicine consult request which was completed asynchronously through chart review and information provided by the primary physician. The patient was not seen or examined today. The evaluation is consultative in nature and all patient care and treatment decisions can either be accepted or rejected by the patient's primary hospital-based treating physician using their own independent medical judgment for their patient. Time Spent Reviewing Chart: 31+ minutes Bone pathology pending Results & Data Vital Signs (Past 12 Hours) Vital Signs Temp Pulse Pulse Resp BP Pulse Ox O2 Del Method 09/16/24 13:09 68 09/16/24 11:10 36.8 C 69 16 123/73 99 Room Air 09/16/24 07:45 36.9 C 63 20 129/69 98 Room Air 09/16/24 07:25 Room Air 09/16/24 05:44 64 09/16/24 03:29 36.5 C 62 14 106/66 97 Room Air Laboratory Results Laboratory Results - last 48 hr 09/14/24 09/14/24 09/15/24 17:18 20:34 05:50 WBC 5.85 RBC 4.40 L Hgb 12.3 L Hct 38.7 L MCV 88.0 MCH 28.0 MCHC 31.8 L RDW Std Deviation 43.9 RDW Coeff of Vidal 13.6 Plt Count 229 MPV 10.6 Sodium 136 Potassium 4.5 Chloride 102 Carbon Dioxide 29 Anion Gap 5 BUN 33 H Creatinine 1.44 H Est Cr Clr Drug Dosing 50.1 eGFR 51.95 BUN/Creatinine Ratio 22.9 H Glucose 120 H POC Glucose 258 H 200 H Calcium 9.1 09/15/24 09/15/24 09/15/24 08:05 12:03 17:10 WBC RBC Hgb Hct MCV MCH MCHC RDW Std Deviation RDW Coeff of Vidal Plt Count MPV Sodium Potassium Chloride Carbon Dioxide Anion Gap BUN Creatinine Est Cr Clr Drug Dosing eGFR BUN/Creatinine Ratio Glucose POC Glucose 220 H 280 H 234 H Calcium 1209/15/24 09/16/24 20:35 23:35 03:26 WBC RBC Hgb Hct MCV MCH MCHC RDW Std Deviation RDW Coeff of Vidal Plt Count MPV Sodium Potassium Chloride Carbon Dioxide Anion Gap BUN Creatinine Est Cr Clr Drug Dosing eGFR BUN/Creatinine Ratio Glucose POC Glucose 174 H 95 49 L* Calcium 09/16/24 09/16/24 09/16/24 03:57 04:22 07:53 WBC RBC Hgb Hct MCV MCH MCHC RDW Std Deviation RDW Coeff of Vidal Plt Count MPV Sodium Potassium Chloride Carbon Dioxide Anion Gap BUN Creatinine Est Cr Clr Drug Dosing eGFR BUN/Creatinine Ratio Glucose POC Glucose 64 L* 100 H 215 H Calcium 09/16/24 11:42 WBC RBC Hgb Hct MCV MCH MCHC RDW Std Deviation RDW Coeff of Vidal Plt Count MPV Sodium Potassium Chloride Carbon Dioxide Anion Gap BUN Creatinine Est Cr Clr Drug Dosing eGFR BUN/Creatinine Ratio Glucose POC Glucose 285 H Calcium Diagnostic Findings Microbiology 09/12/24 Unknown Toe,Right Gram Stain - Final 09/12/24 Unknown Toe,Right Aerobic and Anaerobic Culture - Preliminary Finegoldia magna 09/09/24 09:54 Toe,Right Great Gram Stain - Final 09/09/24 09:54 Toe,Right Great Aerobic and Anaerobic Culture - Final Escherichia coli ESBL Medications Administered Home Medications Medication Instructions Recorded Confirmed Last Taken docusate sodium 100 mg tablet 100 mg PO BID PRN Constipation 10/18/20 09/09/24 03/12/23 06:30 etanercept 50 mg/mL (1 mL) 50 mg subcut WK 10/18/20 09/09/24 02/07/24 subcutaneous syringe (Enbrel) folic acid 1 mg tablet 1 mg PO DAILY 10/18/20 09/09/24 02/10/24 hydroxychloroquine 200 mg tablet 200 mg PO DAILY 10/18/20 09/09/24 02/10/24 nortriptyline 25 mg capsule 25 mg PO BID 10/18/20 09/09/24 02/10/24 amlodipine 10 mg tablet 10 mg PO DAILY 10/05/22 09/09/24 03/12/23 atorvastatin 10 mg tablet 10 mg PO DAILY 10/05/22 09/09/24 02/10/24 albuterol sulfate 90 mcg/actuation 2 puff inhalation QID PRN 03/12/23 09/09/24 03/11/23 aerosol inhaler Shortness Of Breath glucose 4 gram chewable tablet See Rx Instructions .Route 03/12/23 09/09/24 02/27/23 .COMPLEX PRN HYPOGLYCLEMIA cyanocobalamin (vitamin B-12) 500 500 mcg PO DAILY 02/10/24 09/09/24 Unknown mcg tablet insulin NPH isoph U-100 human 100 18 unit subcut QPM 02/10/24 09/09/24 02/09/24 unit/mL (3 mL) subcutaneous pen (Novolin N FlexPen) insulin NPH isoph U-100 human 100 20 unit subcut QAM 02/10/24 09/09/24 02/10/24 unit/mL (3 mL) subcutaneous pen (Novolin N FlexPen) insulin regular human 100 unit/mL 0 sliding scale dose subcut UD PRN 02/10/24 09/09/24 02/10/24 (3 mL) subcutaneous pen (Novolin R Hyperglycemia FlexPen) insulin regular human 100 unit/mL 10 unit subcut BIDWMEAL 02/10/24 09/09/24 02/10/24 (3 mL) subcutaneous pen (Novolin R FlexPen) furosemide 20 mg tablet 20 mg PO DAILY 09/09/24 09/09/24 Unknown glucagon HCl 1 mg solution for 1 mg subcut DAILY PRN Hypoglycemia 09/09/24 09/09/24 Unknown injection (Glucagon (HCl) Emergency Kit) metformin 500 mg tablet 500 mg PO BID 09/09/24 09/09/24 Unknown valsartan 80 mg tablet 80 mg PO DAILY 09/09/24 09/09/24 Unknown Active Medications Generic Name Dose Route Start Last Admin Trade Name Freq PRN Reason Stop Dose Admin Acetaminophen 1,000 mg 09/09/24 14:03 09/13/24 07:21 Acetaminophen 500 Mg Tab PO 10/09/24 20:59 1,000 mg TID PRN Administration Pain Amlodipine Besylate 10 mg 09/10/24 09:00 09/16/24 08:21 Amlodipine Besylate 5 Mg Tab PO 10/10/24 08:59 10 mg QAM REINA Administration Atorvastatin Calcium 10 mg 09/09/24 21:00 09/15/24 20:46 Atorvastatin 10 Mg Tab PO 10/09/24 20:59 10 mg HS REINA Administration Bumetanide 1 mg 09/10/24 09:00 09/16/24 08:21 Bumetanide 1 Mg Tab PO 10/10/24 08:59 1 mg QAM REINA Administration Folic Acid 1 mg 09/10/24 09:00 09/16/24 08:20 Folic Acid 1 Mg Tab PO 10/10/24 08:59 1 mg QAM REINA Administration Heparin Sodium (Porcine) 5,000 units 09/09/24 21:00 09/16/24 08:19 Heparin Sod 5,000 Unit/0.5 Ml Vial SQ 10/09/24 20:59 5,000 units Q12 REINA Administration Meropenem 500 mg/ Syringe 10 mls @ 2 mls/min 09/13/24 09:00 09/16/24 09:09 IV 10/25/24 08:59 2 mls/min Q8H REINA Administration Protocol Insulin Aspart 0 units 09/16/24 11:30 09/16/24 12:31 Insulin Aspart Per Unit Charge SC 10/16/24 11:29 19 units TID@1130,1630,2100 REINA Administration Protocol Insulin Glargine 30 units 09/16/24 09:00 09/16/24 08:25 Lantus Per Unit Charge SC 10/16/24 08:59 30 units QAM REINA Administration Miscellaneous 15 - 30 gm 09/09/24 13:06 09/16/24 04:00 Carbohydrates For Hypoglycemia PO 10/09/24 13:05 15 gm UD PRN Administration Hypoglycemia Protocol Nortriptyline HCl 25 mg 09/09/24 21:00 09/16/24 08:21 Nortriptyline Hcl 25 Mg Cap PO 10/09/24 20:59 25 mg BID REINA Administration Vitamin B Complex 1 tab 09/10/24 09:00 09/16/24 08:21 Vitamin B Complex Tab PO 10/10/24 08:59 1 tab QAM REINA Administration (1) Cellulitis Laterality: right Site of cellulitis: extremity Site of cellulitis of extremity: lower extremity Qualified Code(s): L03.115 - Cellulitis of right lower limb
--- NOTE | 2024-09-16 18:35 | Hospitalist Progress Note ---
Date of Service September 16, 2024 Assessment & Plan (1) Acute osteomyelitis of toe of right foot: Plan: Recent wound culture from 08/12/2024 shows MSSA plus Pseudomonas aeruginosa. Patient has history of MRSA diabetic ulcer in the past -POD#4 from partial amputation of right first and second toe 09/12 -daptomycin d/c'd since no growth of staph. Given ESBL, zosyn changed to meropenem as per ID -ID following -f/u surgical pathology, if no OM on proximal margin, can complete a short course of abx for cellulitis based on culture growth. Still pending on 09/16 (2) Type 2 diabetes mellitus with polyneuropathy: Plan: Accu-Cheks before every meal and nightly with sliding scale insulin coverage Pharmacy managing glycemic control (3) HTN (hypertension): Plan: -hydralizine, norvasc (4) Hyperlipidemia: Plan: -atorvastatin (5) H/O: CVA (cerebrovascular accident): (6) Rheumatoid arthritis: Plan: Hydroxychloroquine Patient is immunosuppressed, will hold off on immunosuppressants at this point given active infection with osteomyelitis This can be resumed on discharge once infection is under better control (7) Ulcerative colitis: Plan: Patient is on weekly Enbrel (every Monday) (8) CKD stage 3b, GFR 30-44 ml/min: Plan: cr stable Plan CODE STATUS: Full code DVT prophylaxis: Heparin subcutaneous Can D/C on oral abx, once surgical pathology resulted Once ready for D/C call intermediate for physician to physician signout [phone] x [phone] Admission and Anticipated Discharge Date Admission Date: September 09, 2024 Subjective Patient reports feeling well. Asking when he can be discharged. He has no active complaints. Review of Systems Review of Systems: All systems reviewed & are unremarkable except as noted in HPI & below Physical Exam Physical Exam: General: NAD Heart: RRR NL S1 S2 Lung: Clear ABD: soft, NT Results & Data Results & Data Vital Signs (Past 12 Hours) Vital Signs Temp Pulse Pulse Resp BP Pulse Ox O2 Del Method 09/16/24 15:37 36.6 C 70 16 113/65 99 Room Air 09/16/24 13:09 68 09/16/24 11:10 36.8 C 69 16 123/73 99 Room Air 09/16/24 07:45 36.9 C 63 20 129/69 98 Room Air 09/16/24 07:25 Room Air PG Care Time/CCT Total # of Minutes Spent Total Time Spent with Patient: Total time spent is greater than 50% in coordination of care (as documented) at patient's floor/unit and/or counseling patient: Coding Level of Care Code 41888 SUB INP/OBS CARE 2/35MIN Diagnoses Acute osteomyelitis of toe of right foot M86.171 Type 2 diabetes mellitus with polyneuropathy E11.42 HTN (hypertension) I10 Hypertension type: unspecified Hyperlipidemia, unspecified hyperlipidemia type E78.5 Hyperlipidemia type: unspecified H/O: CVA (cerebrovascular accident) Z86.73 Rheumatoid arthritis M06.9 Ulcerative colitis K51.90 CKD stage 3b, GFR 30-44 ml/min N18.32 (3) HTN (hypertension) Hypertension type: unspecified Qualified Code(s): I10 - Essential (primary) hypertension (4) Hyperlipidemia Hyperlipidemia type: unspecified Qualified Code(s): E78.5 - Hyperlipidemia, unspecified
[2024-09-17 06:37] LABS: Hematocrit (blood only) 36.1 % (42.0-52.0); Hemoglobin 11.7 g/dl (14.0-18.0); Mean Corpuscular Hemoglobin 28.2 pg (25.0-34.0); Mean Corpuscular Hgb Conc 32.4 g/dL (32.0-36.0); Mean Platelet Volume 10.5 fL (9.4-12.4); Platelet Count 240 K/uL (130-400); RDW Coefficient of Variation 13.7 % (11.5-14.5); RDW Standard Deviation 43.8 fL (36.4-46.3); Red Blood Count 4.15 M/uL (4.70-6.10)
[2024-09-17 06:55] LABS: BUN Creatinine Ratio 28.2 (10-20); C Reactive Protein 0.9 mg/dl (0-0.5); Calcium 9.1 mg/dl (8.6-10.3); Creatinine Clr Calc Pharmacy 33.4 ml/min; Potassium 4.7 mmol/L (3.5-5.1)
[2024-09-17 07:14] VITALS: RESP 18
[2024-09-17] MEDS: INSULIN ASPART PER UNIT CHARGE SC SCH (09:10)
--- NOTE | 2024-09-17 10:30 | Pharmacy Report ---
Pharmacy Glycemic Short Note 2 - Date of Service September 17, 2024 - Glycemic Short BSG Results (Last 24 hours): 09/16/24 09/16/24 09/16/24 11:42 16:46 16:47 Glucose POC Glucose 285 H 363 H* 246 H 09/16/24 09/16/24 09/17/24 16:48 20:21 06:10 Glucose 113 H POC Glucose 285 H 213 H 09/17/24 07:58 Glucose POC Glucose 130 H OUTPATIENT ANTIDIABETIC REGIMEN: * NPH 20 units SQ qAM, 18 units SQ qPM * Novolin R 10 units BID with meals and SS * Metformin 500mg po BID HbA1c 9% 09/10/24 ASSESSMENT: 09/17 * Kwaku received 97 units of insulin yesterday (30 were basal) * Fasting BSG this AM acceptable, continue current basal regimen. * Post-prandial BSGs still elevated will tighten breakfast and later day carbohydrate ratios slightly * He remains on meropenem. 09/16 * Kwaku received 95 units of insulin yesterday (35 were basal) * Hypoglycemic overnight (asymptomatic) treated with 45gm CHO, BSGs this AM elevated-- not true fasting since hypoglycemia treatment. Unclear cause for hypoglycemia, potentially too much basal insulin or insulin needs decrease throughout the day. Will decrease basal insulin by 15% and trial tighter breakfast parameters with just breakfast. 09/13 * Kwaku received 55 units of insulin yesterday (25 were basal) * Fasting BSG this AM still elevated, will aim for basal dosage closer to a weight based stress of 3 (yesterday's dose was close to 2) based on bedtime BSG * All BSGs still above goal range, Lunchtime BSG up to the 400s, tightened carbohydrate ratio with lunchtime, gave a one time dose of IV regular insulin again to help bring down BSGs 09/12 * Post-op day #0. BSGs improving, fasting 178 mg/dL on lab this morning 244 mg/dL on POC check- will increase lantus scale for PM dose * BSG at lunch 270 mg/dL- as patient was NPO will tighten correction factor,continue current carb coverage for now 09/11/24 * BSGs above goal today with critical high of 512 around lunch time. Pt will get a one time dose of IV insulin 5 units * Pt was also hypoglycemic again yesterday late afternoon hitting a low of 39; this can be possibly d/t insulin stacking. * Correction factor loosened from 25 to 30 d/t lows after hyperglycemia indicating it was possibly too tight. Carb ratio will be tightened d/t pt's hyperglycemia today after his breakfast. * NPH was changed to Lantus yesterday evening. A one time scaled HS order put in as well. * Pt will be closely monitored considering extreme swings in his BSG and anticipated NPO status for his upcoming surgery tomorrow. 09/10/24 * Patient's BG increased last night and this evening due to holding basal, as patient had critical hypoglycemia upon admission. * Resumed NPH and and conservative NovoLog CF/CR at breakfast, resulting in BG in 300s at lunch, will tighten CF/CR and lower goal range and add additional check at 1445 to bring patient back to goal blood sugar. 09/09/24 * 69 year old male to be admitted today via the ED for a worsening right toe wound with purulent discharge. (Found on CT to be osteomyelitis with cellulitis). He was started on daptomycin and zosyn. Pharmacy was consulted for glycemic management while he is admitted * Patient has history of HHNC as well as stage III CKD (baseline SCr between 1.5 and 1.7). * Patient had an episode of hypoglycemia in the ED this morning--BSG of 27mg/dL which improved to 80mg/dL after receiving 25ml of D50. Because of this, basal insulin will be held for now. Conservative bolus insulin will be ordered--Loose CF and no CR for now until patient is eating and BSGs have improved. * He will be followed closely and insulin will be adjusted as needed. PLAN FOR INPATIENT GLYCEMIC CONTROL: * Basal insulin * Lantus 30 units SQ QAM * Bolus insulin- breakfast * NovoLog per scale QDB * Goal Range: Low 110 mg/dL - High 140 mg/dL * Correction Factor: 20 mg/dL/unit * Nutritional / Prandial insulin per carb ratio: 1 unit per 3 grams CHO consumed * Bolus insulin- lunch, dinner and bedtime * NovoLog per scale QDL, QDD, HS or Q6hrs while NPO * Goal Range: Low 110 mg/dL - High 180 mg/dL * Correction Factor: 30 mg/dL/unit * Nutritional / Prandial insulin per carb ratio: 1 unit per 4 grams CHO consumed
--- NOTE | 2024-09-17 13:39 | Infectious Disease Progress Nt ---
Date of Service September 17, 2024 Assessment & Plan (1) Cellulitis: (2) Acute osteomyelitis of toe of right foot: (3) Type 2 diabetes mellitus with polyneuropathy: (4) Failure of outpatient treatment: Plan 69yo M inmate with h/o IDDM, h/o CVA in 2017, HFpEF, CKD III, rheumatoid arthritis on plaquenil, UC on weekly Enbrel, h/o left first and second toe OM 08/2023 s/p left first and 2nd toe amp (cx MRSA and Bacteroides, tx with doxy/augmentin x 7d postop), recent ED visit 08/12/24 with ulcers on toes 1-3 (no leukocytosis, XR neg for OM, dcd from ED on doxycycline x 7 days, seen in ED 08/17 with RLE edema and ulcers (dcd on Keflex x 7d, WCX returned with PsA and MSSA) who presented on 09/09 with worsening right toe wound with purulent discharge. Has chronic bl lower extremity edema. Here, he was afebrile, vss. WBC 5.68, Cr 1.53, AST/ALT wnl. Lactate wnl. CRP 0.58. COVID neg. CT right foot with right toe wound with associated soft tissue swelling c/f cellulitis, subtle erosion of distal tuft of right first distal phalanx c/f acute OM, no additional sites of OM in the right foot, dorsal right foot edema, no fluid collections within the right foot. He has been started on daptomycin and zosyn. ID consulted 09/09. ID kept on abx given cellulitis and purulent drainage. S/p right first and second toe partial amputation on 09/12. OR Cx and path pending finalization . Daptomycyin discontinued-no growth of Staph. Given ESBL organism, ID changed zosyn to meropenem. Await path and OR cultures. # OM of distal tuft of right first distal phalanx # RLE cellulitis # Type 2 DM # CKD III # RA and UC on plaquenil and Enbrel 09/09 wound cx + esbl ecoli ( S amp/sul, amox- clav, pip-tazo, ert, negar) 09/12 OR culture( + anaerobe ) finegoldia magna - f/u OR path proximal margins/ - await full op note - will switch from meropenem to Ertapenem1 g IV daily ( crcl 33.4) for E coli esbl and finegoldia growth from wound and OR cx - if no residual OM on proximal margin, then he can complete a short course (10d total) of abx for cellulitis based on culture growth ( 09/12-09/22). Oral options amox-clav 875/125 mg po q 12hrs ( cr cl>30) - If residual OM on proximal margin, then he will complete 6 weeks of Ertapenem 1 g Iv daily ( cr cl 33) ( 09/12/24-10/24/24); in that case, will need weekly cbc with diff, bmp, lft ID will sign off. Call with questions. Kassy Ramirez MD, MPH Infectious Disease [facility] Call [phone] with questions Admission and Anticipated Discharge Date Admission Date: September 09, 2024 Subjective This patient recommendation is based on a telemedicine consult request which was completed asynchronously through chart review and information provided by the primary physician. The patient was not seen or examined today. The evaluation is consultative in nature and all patient care and treatment decisions can either be accepted or rejected by the patient's primary hospital-based treating physician using their own independent medical judgment for their patient. Time Spent Reviewing Chart: 31+ minutes bone path margins of great and 2nd toe pending OR cx + finegoldia magna Results & Data Vital Signs (Past 12 Hours) Vital Signs Temp Pulse Pulse Pulse Resp BP BP 09/17/24 10:30 36.6 C 66 18 128/72 09/17/24 07:13 36.8 C 64 18 126/71 09/17/24 05:42 62 09/17/24 04:11 36.8 C 64 16 122/57 L Pulse Ox O2 Del Method 09/17/24 10:30 96 Room Air 09/17/24 07:13 96 Room Air 09/17/24 05:42 09/17/24 04:11 98 Room Air Laboratory Results Short CBC 09/17/24 Range/Units 06:10 WBC 6.30 (4.8-10.8) K/ul Hgb 11.7 L (14.0-18.0) g/dl Hct 36.1 L (42.0-52.0) % Plt Count 240 (130-400) K/uL BMP 09/17/24 06:10 Sodium 136 Potassium 4.7 Chloride 102 Carbon Dioxide 28 BUN 61 H Creatinine 2.16 H Glucose 113 H Calcium 9.1 Diagnostic Findings Microbiology 09/12/24 Unknown Toe,Right Gram Stain - Final 09/12/24 Unknown Toe,Right Aerobic and Anaerobic Culture - Final Finegoldia magna 09/09/24 09:54 Toe,Right Great Gram Stain - Final 09/09/24 09:54 Toe,Right Great Aerobic and Anaerobic Culture - Final Escherichia coli ESBL Medications Administered Home Medications Medication Instructions Recorded Confirmed Last Taken docusate sodium 100 mg tablet 100 mg PO BID PRN Constipation 10/18/20 09/09/24 03/12/23 06:30 etanercept 50 mg/mL (1 mL) 50 mg subcut WK 10/18/20 09/09/24 02/07/24 subcutaneous syringe (Enbrel) folic acid 1 mg tablet 1 mg PO DAILY 10/18/20 09/09/24 02/10/24 hydroxychloroquine 200 mg tablet 200 mg PO DAILY 10/18/20 09/09/24 02/10/24 nortriptyline 25 mg capsule 25 mg PO BID 10/18/20 09/09/24 02/10/24 amlodipine 10 mg tablet 10 mg PO DAILY 10/05/22 09/09/24 03/12/23 atorvastatin 10 mg tablet 10 mg PO DAILY 10/05/22 09/09/24 02/10/24 albuterol sulfate 90 mcg/actuation 2 puff inhalation QID PRN 03/12/23 09/09/24 03/11/23 aerosol inhaler Shortness Of Breath glucose 4 gram chewable tablet See Rx Instructions .Route 03/12/23 09/09/24 02/27/23 .COMPLEX PRN HYPOGLYCLEMIA cyanocobalamin (vitamin B-12) 500 500 mcg PO DAILY 02/10/24 09/09/24 Unknown mcg tablet insulin NPH isoph U-100 human 100 18 unit subcut QPM 02/10/24 09/09/24 02/09/24 unit/mL (3 mL) subcutaneous pen (Novolin N FlexPen) insulin NPH isoph U-100 human 100 20 unit subcut QAM 05/18/24 12/16/24 05/18/24 unit/mL (3 mL) subcutaneous pen (Novolin N FlexPen) insulin regular human 100 unit/mL 0 sliding scale dose subcut UD PRN 02/10/24 09/09/24 02/10/24 (3 mL) subcutaneous pen (Novolin R Hyperglycemia FlexPen) insulin regular human 100 unit/mL 10 unit subcut BIDWMEAL 02/10/24 09/09/24 02/10/24 (3 mL) subcutaneous pen (Novolin R FlexPen) furosemide 20 mg tablet 20 mg PO DAILY 09/09/24 09/09/24 Unknown glucagon HCl 1 mg solution for 1 mg subcut DAILY PRN Hypoglycemia 09/09/24 09/09/24 Unknown injection (Glucagon (HCl) Emergency Kit) metformin 500 mg tablet 500 mg PO BID 09/09/24 09/09/24 Unknown valsartan 80 mg tablet 80 mg PO DAILY 09/09/24 09/09/24 Unknown Active Medications Generic Name Dose Route Start Last Admin Trade Name Freq PRN Reason Stop Dose Admin Acetaminophen 1,000 mg 09/09/24 14:03 09/13/24 07:21 Acetaminophen 500 Mg Tab PO 10/09/24 20:59 1,000 mg TID PRN Administration Pain Amlodipine Besylate 10 mg 09/10/24 09:00 09/17/24 08:22 Amlodipine Besylate 5 Mg Tab PO 10/10/24 08:59 10 mg QAM REINA Administration Atorvastatin Calcium 10 mg 09/09/24 21:00 09/16/24 20:35 Atorvastatin 10 Mg Tab PO 10/09/24 20:59 10 mg HS REINA Administration Bumetanide 1 mg 09/10/24 09:00 09/17/24 08:22 Bumetanide 1 Mg Tab PO 10/10/24 08:59 1 mg QAM REINA Administration Folic Acid 1 mg 09/10/24 09:00 09/17/24 08:22 Folic Acid 1 Mg Tab PO 10/10/24 08:59 1 mg QAM REINA Administration Heparin Sodium (Porcine) 5,000 units 09/09/24 21:00 09/17/24 08:48 Heparin Sod 5,000 Unit/0.5 Ml Vial SQ 10/09/24 20:59 5,000 units Q12 REINA Administration Insulin Aspart 0 units 09/16/24 11:30 09/17/24 12:38 Insulin Aspart Per Unit Charge SC 10/16/24 11:29 13 units TID@1130,1630,2100 [facility] Administration Protocol Insulin Aspart 0 units 09/17/24 07:30 09/17/24 09:10 Insulin Aspart Per Unit Charge SC 10/17/24 07:29 16 units QDB REINA Administration Protocol Insulin Glargine 30 units 09/16/24 09:00 09/17/24 08:48 Lantus Per Unit Charge SC 10/16/24 08:59 30 units QAM REINA Administration Miscellaneous 15 - 30 gm 09/09/24 13:06 09/16/24 04:00 Carbohydrates For Hypoglycemia PO 10/09/24 13:05 15 gm UD PRN Administration Hypoglycemia Protocol Nortriptyline HCl 25 mg 09/09/24 21:00 09/17/24 08:22 Nortriptyline Hcl 25 Mg Cap PO 10/09/24 20:59 25 mg BID REINA Administration Vitamin B Complex 1 tab 09/10/24 09:00 09/17/24 08:22 Vitamin B Complex Tab PO 10/10/24 08:59 1 tab QAM REINA Administration (1) Cellulitis Laterality: right Site of cellulitis: extremity Site of cellulitis of extremity: lower extremity Qualified Code(s): L03.115 - Cellulitis of right lower limb
[2024-09-17] MEDS: ERTAPENEM 1000MG 1,000 MG/10 ML SYR IV SCH (15:13)
[2024-09-17] MEDS: SODIUM CHLORIDE 0.9% 1,000 ML IV SCH (16:06)
--- NOTE | 2024-09-17 17:27 | Hospitalist Progress Note ---
Date of Service September 17, 2024 Assessment & Plan (1) Acute osteomyelitis of toe of right foot: Plan: Recent wound culture from 08/12/2024 shows MSSA plus Pseudomonas aeruginosa. Patient has history of MRSA diabetic ulcer in the past -POD#4 from partial amputation of right first and second toe 09/12 -daptomycin d/c'd since no growth of staph. Given ESBL, zosyn changed to meropenem as per ID -ID following -f/u surgical pathology, if no OM on proximal margin, can complete a short course of abx for cellulitis based on culture growth. Still pending on 09/16 (2) Type 2 diabetes mellitus with polyneuropathy: Plan: Accu-Cheks before every meal and nightly with sliding scale insulin coverage Pharmacy managing glycemic control (3) HTN (hypertension): Plan: -hydralizine, norvasc (4) Hyperlipidemia: Plan: -atorvastatin (5) H/O: CVA (cerebrovascular accident): (6) Rheumatoid arthritis: Plan: Hydroxychloroquine Patient is immunosuppressed, will hold off on immunosuppressants at this point given active infection with osteomyelitis This can be resumed on discharge once infection is under better control (7) Ulcerative colitis: Plan: Patient is on weekly Enbrel (every Monday) (8) CKD stage 3b, GFR 30-44 ml/min: Plan: cr stable Acute kidney injury Creatinine alondra. added IVF will recheck in AM. Plan CODE STATUS: Full code DVT prophylaxis: Heparin subcutaneous Can D/C on oral abx, once surgical pathology resulted Once ready for D/C call skilled nursing for physician to physician signout [phone] x [phone] Admission and Anticipated Discharge Date Admission Date: September 09, 2024 Subjective bone path margins of great and 2nd toe pending OR cx + finegoldia magna Physical Exam Physical Exam: General: NAD Heart: RRR NL S1 S2 Lung: Clear ABD: soft, NT Results & Data Results & Data Vital Signs (Past 12 Hours) Vital Signs Temp Pulse Pulse Resp BP BP Pulse Ox 09/17/24 14:48 36.6 C 67 18 126/73 96 09/17/24 13:01 65 09/17/24 10:30 36.6 C 66 18 128/72 96 09/17/24 07:13 36.8 C 64 18 126/71 96 09/17/24 05:42 62 O2 Del Method 09/17/24 14:48 Room Air 09/17/24 13:01 09/17/24 10:30 Room Air 09/17/24 07:13 Room Air 09/17/24 05:42 PG Care Time/CCT Total # of Minutes Spent Total Time Spent with Patient: Total time spent is greater than 50% in coordination of care (as documented) at patient's floor/unit and/or counseling patient: Coding Level of Care Code 87996 SUB INP/OBS CARE MIN Diagnoses Acute osteomyelitis of toe of right foot M86.171 Type 2 diabetes mellitus with polyneuropathy E11.42 HTN (hypertension) I10 Hypertension type: unspecified Hyperlipidemia, unspecified hyperlipidemia type E78.5 Hyperlipidemia type: unspecified H/O: CVA (cerebrovascular accident) Z86.73 Rheumatoid arthritis M06.9 Ulcerative colitis K51.90 CKD stage 3b, GFR 30-44 ml/min N18.32 (3) HTN (hypertension) Hypertension type: unspecified Qualified Code(s): I10 - Essential (primary) hypertension (4) Hyperlipidemia Hyperlipidemia type: unspecified Qualified Code(s): E78.5 - Hyperlipidemia, unspecified
[2024-09-18 03:26] VITALS: TEMP 97.8
[2024-09-18 06:29] LABS: Hematocrit (blood only) 36.5 % (42.0-52.0); Hemoglobin 11.9 g/dl (14.0-18.0); Mean Corpuscular Hemoglobin 28.3 pg (25.0-34.0); Mean Corpuscular Hgb Conc 32.6 g/dL (32.0-36.0); Mean Corpuscular Volume 86.9 fL (80.0-100.0); Mean Platelet Volume 10.5 fL (9.4-12.4); Platelet Count 238 K/uL (130-400); RDW Coefficient of Variation 13.5 % (11.5-14.5); White Blood Count 5.86 K/ul (4.8-10.8)
[2024-09-18 06:53] LABS: C Reactive Protein 0.76 mg/dl (0-0.5); Creatinine Clr Calc Pharmacy 45.1 ml/min; Potassium 4.3 mmol/L (3.5-5.1)
[2024-09-18 07:13] VITALS: BP 143/77; O2SAT 100
[2024-09-18] MEDS: SODIUM CHLORIDE 0.9% 500 ML IV SCH (11:30)
[2024-09-18 12:27] VITALS: PULSE 68
--- NOTE | 2024-09-18 13:14 | Discharge Summary ---
Discharge Summary Date of Service September 18, 2024 Principal Dx & Hospital Course #1 = Principal Diagnosis (1) Acute osteomyelitis of toe of right foot: Recent wound culture from 08/12/2024 shows MSSA plus Pseudomonas aeruginosa. Patient has history of MRSA diabetic ulcer in the past -POD#4 from partial amputation of right first and second toe 09/12 -daptomycin d/c'd since no growth of staph. Given ESBL, zosyn changed to meropenem as per ID -ID following -surgical pathology showed no OM on proximal margin, can complete a short course of abx for cellulitis based on culture growth. (2) Type 2 diabetes mellitus with polyneuropathy: Accu-Cheks before every meal and nightly with sliding scale insulin coverage Pharmacy managing glycemic control (3) HTN (hypertension): -hydralizine, norvasc (4) Hyperlipidemia: -atorvastatin (5) H/O: CVA (cerebrovascular accident): (6) Rheumatoid arthritis: Hydroxychloroquine Patient is immunosuppressed, will hold off on immunosuppressants at this point given active infection with osteomyelitis This can be resumed on discharge once infection is under better control (7) Ulcerative colitis: Patient is on weekly Enbrel (every Monday) (8) CKD stage 3b, GFR 30-44 ml/min: cr stable Acute kidney injury improved with IVF. will need to monitor creatinine. Admission HPI Per Admitting Provider 69-year-old present inmate with past medical history of insulin-dependent type 2 diabetes mellitus, hypertension, history of CVA in 2017 not on aspirin, chronic diastolic congestive heart failure with preserved ejection fraction of 60%, CKD stage III, rheumatoid arthritis on Plaquenil and ulcerative colitis on weekly Enbrel, history of left first and second toe amputation secondary to osteomyelitis was recently seen in ED on 08/12/2024 for right toe ulcer and discharge from ED on Keflex plus doxycycline for 7 days with wound culture growing Pseudomonas aeruginosa and MSSA presents with worsening right toe wound with purulent discharge. Patient had lab work done in ED which showed lactate of 1.3, white count of 5.68, creatinine of 1.53 and glucose of [address] done which showed right toe wound with associated soft tissue swelling suggestive of cellulitis, subtle erosion of the distal tuft of the right first distal phalanx to just above acute osteomyelitis. Dorsal right foot edema, no fluid collections within the right foot and no soft tissue gas noted. In ED: Patient received D50 for blood glucose of 27 with improvement in blood glucose. He was also given IV Zosyn and IV daptomycin and hospital service was called for admission Patient denies any fever, chills, headache, dizziness, lightheadedness, chest pain, shortness of breath, nausea, vomiting, diarrhea, abdominal pain. He does endorse bilateral lower extremity edema which has been chronic for almost a year. Patient tells me he had a stroke in 2017 and aspirin was stopped about a year ago and he was told he does not need aspirin anymore. He denies any bleeding issues. Patient is on Lasix 20 mg daily but does not feel it helps much with his leg edema Labs, radiology reviewed Social history: Patient states he quit tobacco smoking 5 years ago. Patient denies alcohol use. Patient endorses past drug use of marijuana only. Denies IV drug use Family history: Patient tells me his mother of COPD. Patient does not recall father's medical issues Discharge Exam General: NAD Heart: RRR NL S1 S2 Lung: Clear ABD: soft, NT Discharge Plan Discharge Items Patient Disposition: Home - Self-Care Reason For Visit: RIGHT TOE OSTEOMYELITIS Discharge Diagnosis: Right toe osteomyeltiis Condition on Discharge: Fair Activity: Resume your previous activity Non-emergency contact: Primary Care Provider Call non-emergency contact if: you have any medication questions Follow-up/Referrals: Luc BACA [Primary Care Provider] - Diet: Carb Consistent or DM2 Addtl Attending Provider Instructions: Oral options amox-clav 875/125 mg po q 12hrs ( cr cl>30) Start first dose in the morning. Last day of treatment would be 09/22) Dressing left intact today POD #1. - Can be changed every 2-3 days by nursing with similar dry sterile dressing. Sooner if soiled/wet. - Sutures removed by staff at facility at 2 weeks postop. Addtl Door Opener Provider Instructions: DIABETES RECOMMENDATIONS: 1.) Increase Novolin-N from 20 units to 22 units with breakfast. 2.) Decrease Novolin-N from 18 units to 14 units with supper. 3.) Aim to maintain BG values < 200 (ideally < 150 before meals) to support healing. 4.) Continue high protein supplement 2x/day to help boost protein intake/support healing. Pending Studies at Discharge: No Stand-Alone Forms: [facility], Smoking Cessation Medications and DC Order Prescriptions: New amoxicillin-pot clavulanate 875-125 mg tablet 1 tab PO BID Qty: 8 0RF Rx Instructions: FIrst dose tomorrow on 09/19 Continued nortriptyline 25 mg Capsule 25 mg PO BID folic acid 1 mg Tablet 1 mg PO DAILY hydroxychloroquine 200 mg Tablet 200 mg PO DAILY docusate sodium 100 mg Tablet 100 mg PO BID PRN (Reason: Constipation) Enbrel 50 mg/mL (1 mL) Syringe 50 mg SUBCUT WK Rx Instructions: WEDNESDAYS atorvastatin 10 mg Tablet 10 mg PO DAILY amlodipine 10 mg Tablet 10 mg PO DAILY Rx Instructions: HOLD IF B/P IS <120/80 glucose 4 gram Tablet,Chewable See Rx Instructions .ROUTE .COMPLEX PRN (Reason: HYPOGLYCLEMIA) Rx Instructions: Glucose 3.75gm: Chew and swallow as needed for hypoglycemia albuterol sulfate 90 mcg/actuation Hfa Aerosol Inhaler 2 puff INHALATION QID PRN (Reason: Shortness Of Breath) Novolin R FlexPen 100 unit/mL (3 mL) Insulin Pen 0 sliding scale dose SUBCUT UD PRN (Reason: Hyperglycemia) Rx Instructions: 201-250 = 2units; 251-300 = 4units; 301-350 = 6units; 351-400 = 8units; 401- 450 = 10units; 451-500 = 12units. >500 call cyanocobalamin (vitamin B-12) 500 mcg Tablet 500 mcg PO DAILY Novolin R FlexPen 100 unit/mL (3 mL) Insulin Pen 10 unit SUBCUT BIDWMEAL metformin 500 mg Tablet 500 mg PO BID glucagon HCl [Glucagon (HCl) Emergency Kit] 1 mg Recon Soln 1 mg subcut DAILY PRN (Reason: Hypoglycemia) Changed furosemide 20 mg Tablet 40 mg PO Q2D Qty: 0 0RF Novolin N FlexPen 100 unit/mL (3 mL) Insulin Pen 14 unit SUBCUT QPM Qty: 0 0RF Novolin N FlexPen 100 unit/mL (3 mL) Insulin Pen 22 unit SUBCUT QAM Qty: 0 0RF Held valsartan 80 mg Tablet 80 mg PO DAILY Hold Instructions: Resume on 09/20/24. recheck BMP to ensure APRIL has resolved before resuming. Discharge Orders: Discharge Order (Routine); Ordered 09/18/24 Ordered By: Skip Martinez Admission Data Admit Date/Time: 09/09/24 13:07 Attending Provider: Skip Martinez Admit Provider: Glen Galan Primary Care Provider: Luc BACA Other Providers: Vinh Mazariegos; Alea Fischer Other Interventions: Discharge Summary Assessment (RN) Last Done: 09/18/24 12:26 Hospital Stay Data Consultations 09/09/24 12:15 Consult Podiatry Routine 09/09/24 12:20 ED Decision to Admit Stat 09/09/24 13:28 Consult Infectious Diseases Routine Procedures Performed Operation Date: 09/12/24 10:30 Actual Procedures p Right First and Second Partial Toe Amputations(Right) - Vinh Mazariegos DPM Diagnostic Imagining Performed 09/09/24 09:40 CT foot RT wo con Stat 09/10/24 11:32 US ankle/brachial index ltd Routine Pending Results Patient Have Any Pending Studies at Discharge: No Discharge Instructions Given to Patient (Per Discharging Provider) Oral options amox-clav 875/125 mg po q 12hrs ( cr cl>30) Start first dose in the morning. Last day of treatment would be 09/22) Dressing left intact today POD #1. - Can be changed every 2-3 days by nursing with similar dry sterile dressing. Sooner if soiled/wet. - Sutures removed by staff at facility at 2 weeks postop. Total Time Total Time Spent Total Time Spent (In Minutes): 35 Coding Level of Care Code 28691 INP/OBS DISCH >30 MIN Diagnoses Acute osteomyelitis of toe of right foot M86.171 Type 2 diabetes mellitus with polyneuropathy E11.42 HTN (hypertension) I10 Hypertension type: unspecified Hyperlipidemia, unspecified hyperlipidemia type E78.5 Hyperlipidemia type: unspecified H/O: CVA (cerebrovascular accident) Z86.73 Rheumatoid arthritis M06.9 Ulcerative colitis K51.90 CKD stage 3b, GFR 30-44 ml/min N18.32
--- NOTE | 2024-09-23 10:31 | Coding Query ---
PRESENT ON ADMISSION QUERY To promote full compliance with coding requirements relating to pateint care, physician participation is requested in all cases of chemical research engineer uncertainty. Please assist us with the question(s) below: Please place an X within the parenthesis (x). The following diagnosis listed in this patient's medical record require physician assistance to determine if they were present on admission (POA) or not. Please advise for each diagnosis whether it was present on admission, not present on admission, or if it was clinically undetermined. 1.ACUTE KIDNEY INJURY ( ) Present On Admission ( ) Not Present On Admission ( x) Clinically Undetermined Unsure of his baseline. Thank you Sayra Larson *Definition of the present on admission (POA)-Present on admission is defined as present at the time the order for inpatient admission occurs. Conditions that develop during an outpatient encounter prior to a written order for inpatient admission (including emergency department, observation, or outpatient surgery) are considered present on admission. GERID
== END 2024-09-18 14:43 | DRG 617 ==
LOC: ED 09:03 → SUATTDRO 13:07 → EDINP 13:07 → 2W 17:20

== ENCOUNTER 2024-11-04 08:38 | Observation (INO) ==
--- NOTE | 2024-11-04 10:02 | XRay Report ---
XR foot RT min 3V routine CLINICAL HISTORY: diabetic foot wounds, ball of foot COMPARISON: Right foot radiographs August 12, 2024. Right foot CT September 19, 2024. FINDINGS: There are postoperative findings consistent with amputation of the right first distal phal anx and distal aspect of the right first proximal phalanx. Note is made of mild osseous irregularity of the remaining portion of the right first proximal phalanx. There are also postoperative findings c onsistent with amputation of the middle and distal phalanges of the second toe. No definite bony eros ions within the right foot are present. There are no fractures. Posterior calcaneal spurring is prese nt. There is extensive vascular calcification. IMPRESSION: 1. Status post right first and second digit amputations, as described above. Mild osseous irregularit y of the distal remaining portion of the right first proximal phalanx. This may be postsurgical howev er osteomyelitis could appear similar. 2. No additional sites of bony erosion within the right foot. ACT 112: Negative or not required by law. Electronically signed by: Gerardo Patterson M.D. 11/04/2024 10:00 AM
--- NOTE | 2024-11-04 10:08 | XRay Report ---
XR foot LT min 3V routine CLINICAL HISTORY: diabetic foot wounds, ball of foot COMPARISON: Left foot radiographs September 19, 2022. CT of the left foot September 15, 2023. MRI of th e left foot September 15, 2023. FINDINGS: Tarsometatarsal joints are intact. There are postoperative findings consistent with amputa tion of the left first distal phalanx and the left second proximal, middle and distal phalanges. On l ateral projection, there is lucency and cortical irregularity of the dorsal base of the left fourth m iddle phalanx. No areas of bony erosion are identified. There is extensive vascular calcification. Le ft forefoot soft tissue swelling is present. IMPRESSION: 1. No evidence for acute osteomyelitis within the left foot. 2. Lucency and cortical irregularity of the dorsal base of the left fourth middle phalanx suggestive of an age-indeterminate fracture. 3. Status post left first and second digit amputation. ACT 112: Negative or not required by law. Electronically signed by: Gerardo Patterson M.D. 11/04/2024 10:07 AM
--- NOTE | 2024-11-04 10:51 | History & Physical Report ---
Date of Service November 04, 2024 Assessment & Plan (1) Tear of skin of plantar aspect of foot: Plan: Open serous filled blisters on plantar aspect of bilateral feet High risk of cellulitis but none clearly currently present therefore antibiotics deferred US arterial doppler to assess for wound healing potential (previously only ABIs done) Consult wound care Consult podiatry given closed water blisters also still present and possible need for debridement Possible OM of distal remaining portion of right first proximal phalanx v.s post surgical changes - will have podiatry assess for OM with a suspect this is mostly postsurgical change (2) Type 2 diabetes mellitus: Plan: Glucose 518 on arrival to the ER, insulin 10 units IV ordered Labile glucose levels during last admission, would consider reducing Novolog dosing and increasing Lantus dosing Consult pharmacy for ongoing glycemic control Plan VTE Prophylaxis - heparin 5000 units SQ BID Diet - T2DM, low Na Disposition - observation to med/surg Admission and Anticipated Discharge Date Admission Date: November 04, 2024 History of Present Illness Chief Complaint: Foot wound Primary Care Provider: [facility] Kwaku Ashley is a 69 year old male with T2DM and prior toe amputation from [facility] who presents to the ER with a skin tear on the bottom of both feet. He reports first noticing blisters a week ago however was any seen by a physician today who after examination of his feet recommended going to the ER for evaluation. He has been using compression stockings which have helped swelling in his legs however he has noticed his feet swelling excessively. No fever or chills. Allergies Allergy/AdvReac Type Severity Reaction Status Date / Time No Known Allergies Allergy Verified 11/04/24 12:25 Home Medications Medication Instructions Recorded Confirmed Type docusate sodium 100 mg tablet 100 mg PO BID PRN Constipation 10/18/20 11/04/24 History etanercept 50 mg/mL (1 mL) 50 mg subcut WK 10/18/20 11/04/24 History subcutaneous syringe (Enbrel) folic acid 1 mg tablet 1 mg PO DAILY 10/18/20 11/04/24 History hydroxychloroquine 200 mg tablet 200 mg PO DAILY 10/18/20 11/04/24 History nortriptyline 25 mg capsule 25 mg PO BID 10/18/20 11/04/24 History amlodipine 10 mg tablet 10 mg PO DAILY 10/05/22 11/04/24 History atorvastatin 10 mg tablet 10 mg PO DAILY 10/05/22 11/04/24 History albuterol sulfate 90 mcg/actuation 2 puff inhalation QID PRN 03/12/23 11/04/24 History aerosol inhaler Shortness Of Breath glucose 4 gram chewable tablet See Rx Instructions .Route 03/12/23 11/04/24 History .COMPLEX PRN HYPOGLYCLEMIA cyanocobalamin (vitamin B-12) 500 500 mcg PO DAILY 02/10/24 11/04/24 History mcg tablet insulin regular human 100 unit/mL 0 sliding scale dose subcut UD PRN 02/10/24 11/04/24 History (3 mL) subcutaneous pen (Novolin R Hyperglycemia FlexPen) insulin regular human 100 unit/mL 10 unit subcut BIDWMEAL 02/10/24 11/04/24 History (3 mL) subcutaneous pen (Novolin R FlexPen) metformin 500 mg tablet 500 mg PO BID 09/09/24 11/04/24 History valsartan 80 mg tablet 80 mg PO DAILY 09/09/24 11/04/24 History insulin NPH isoph U-100 human 100 14 unit (0.14 mL) subcut QPM #0 mL 09/18/24 11/04/24 Rx unit/mL (3 mL) subcutaneous pen (Novolin N FlexPen) insulin NPH isoph U-100 human 100 22 unit (0.22 mL) subcut QAM #0 mL 09/18/24 11/04/24 Rx unit/mL (3 mL) subcutaneous pen (Novolin N FlexPen) emollient See Rx Instructions .Route .COMPLEX 11/04/24 11/04/24 History furosemide 20 mg tablet 20 mg PO DAILY 11/04/24 11/04/24 History sulfamethoxazole 800 1 tab PO BID 11/04/24 11/04/24 History mg-trimethoprim 160 mg tablet (Bactrim DS) Past Med/Surg History Problem List Tear of skin of plantar aspect of foot Diabetes mellitus with peripheral angiopathy with gangrene Hypoglycemia (Acute) Failure of outpatient treatment (Acute) Osteomyelitis (Acute) CKD stage 3b, GFR 30-44 ml/min Ulcerative colitis H/O: CVA (cerebrovascular accident) Acute osteomyelitis of toe of right foot Vocal cord anomaly Rheumatoid arthritis Head injury (Acute) Orthostatic hypotension (Acute) Type 2 diabetes mellitus with polyneuropathy Diabetic ulcer of left foot associated with diabetes mellitus due to underlying condition, with necrosis of bone Cellulitis of foot, left (Acute) Type 2 diabetes mellitus Right lower lobe pneumonia (Acute) SOB (shortness of breath) (Acute) Acute hyperkalemia (Acute) Orthostatic hypotension Recurrent syncope Surgical history unknown HTN (hypertension) (Chronic) Diabetes (Chronic) Hyperlipidemia (Chronic) CVA (cerebral infarction) (Acute 2016) Colitis Syncope (Acute 2016) Medical History APRIL (acute kidney injury) Diabetic foot ulcer CKD (chronic kidney disease) APRIL (acute kidney injury) Elevated troponin HHNC (hyperglycemic hyperosmolar nonketotic coma) Orthostatic hypotension (2016) Anemia Surgical History S/P craniotomy Family History Other Family history non-contributory Social History Smoking Status: Former smoker Tobacco Type: Cigarettes Age Started Using Tobacco: 13; packs per day: 0.5; Second Hand Exposure: No; Do You Dip or Chew Tobacco: No; Hx Alcohol Use: No Hx Substance Use: Yes Prescribed Medications: Marijuana Last Used Substance: Unknown Last Used Substance Other:: >5 years ago Substance Use Type Other:: K2 Preferred Language: Maltese Communication Ability: Effective Spray Dyer Required: No Beliefs That Will Affect Care: None marital status: Current Living Situation: Other Current Living Situation Comment: [email or web address] current occupational status: unemployed Other Information That Helps Us Care for You: No Feels Safe at Home: Yes Safety Concerns: Feels Safe At This Time Assistive Devices: Glasses Review of Systems 2 Review of Systems: All systems reviewed & are unremarkable except as noted in HPI & below Physical Exam 2 Constitutional: WD/WN, vitals as above Respiratory: normal respiratory effort, lungs clear to auscultation Cardiovascular: RRR, no murmur, no edema Gastrointestinal (Abdomen): normal bowel sounds, soft, nontender, no hepatosplenomegaly Skin: Left foot as can be seen above with open blister on plantar aspect without surrounding cellulitis, separate serous filled blister on 2nd toe distally, blister on dorsal aspect of 4th toe, partial well-healed amputation of his first toe, complete amputation secondary. No suspected cellulitis. Right foot with partial amputation of first and second toes. Open blister on the plantar aspect of the first toe without surrounding cellulitis. Closed serous fluid blisters of the third, fourth and fifth toes distally. Neurologic: moves all extremities and awake; not confused Psychiatric: A+Ox3, euthymic affect Results & Data Results & Data Vital Signs (Past 12 Hours) Vital Signs Temp Pulse Pulse Resp BP BP Pulse Ox 11/04/24 10:39 65 16 141/69 H 98 11/04/24 08:57 36.3 C L 79 18 161/89 H 95 O2 Del Method 11/04/24 10:39 Room Air 11/04/24 08:57 Room Air Laboratory Results Abnormal lab results 11/04/24 Range/Units 10:18 RBC 3.88 L (4.70-6.10) M/uL Hgb 11.2 L (14.0-18.0) g/dl Hct 34.3 L (42.0-52.0) % Lymph # (Auto) 1.00 L (1.20-3.40) K/uL [place] # (Auto) 0.70 H (0.11-0.59) K/uL ESR 42 H (0-20) mm/hr Sodium 133 L (136-145) mmol/L BUN 37 H (6-23) mg/dl Creatinine 1.86 H (0.6-1.4) mg/dl Glucose 518 H* (70-99(Fasting)) mg/dl C-Reactive Protein 2.29 H (0-0.5) mg/dl Diagnostic Findings XR foot RT min 3V routine CLINICAL HISTORY: diabetic foot wounds, ball of foot COMPARISON: Right foot radiographs August 12, 2024. Right foot CT September 19, 2024. FINDINGS: There are postoperative findings consistent with amputation of the right first distal phalanx and distal aspect of the right first proximal phalanx. Note is made of mild osseous irregularity of the remaining portion of the right first proximal phalanx. There are also postoperative findings consistent with amputation of the middle and distal phalanges of the second toe. No definite bony erosions within the right foot are present. There are no fractures. Posterior calcaneal spurring is present. There is extensive vascular calcification. IMPRESSION: 1. Status post right first and second digit amputations, as described above. Mild osseous irregularity of the distal remaining portion of the right first proximal phalanx. This may be postsurgical however osteomyelitis could appear similar. 2. No additional sites of bony erosion within the right foot. XR foot LT min 3V routine CLINICAL HISTORY: diabetic foot wounds, ball of foot COMPARISON: Left foot radiographs September 19, 2022. CT of the left foot September 15, 2023. MRI of the left foot September 15, 2023. FINDINGS: Tarsometatarsal joints are intact. There are postoperative findings consistent with amputation of the left first distal phalanx and the left second proximal, middle and distal phalanges. On lateral projection, there is lucency and cortical irregularity of the dorsal base of the left fourth middle phalanx. No areas of bony erosion are identified. There is extensive vascular calcification. Left forefoot soft tissue swelling is present. IMPRESSION: 1. No evidence for acute osteomyelitis within the left foot. 2. Lucency and cortical irregularity of the dorsal base of the left fourth middle phalanx suggestive of an age-indeterminate fracture. 3. Status post left first and second digit amputation. Medications Administered ER medications given: None Code Status & VTE Plan Code Status Full PG Care Time/CCT Total # of Minutes Spent Total Time Spent with Patient: Total time spent is greater than 50% in coordination of care (as documented) at patient's floor/unit and/or counseling patient: Coding Level of Care Code 78376 INT INP/OBS CARE 3/75MIN Diagnoses Tear of skin of plantar aspect of foot S91.319A Type 2 diabetes mellitus with foot ulcer, with long-term current use of insulin E11.621; L97.509; Z79.4 Diabetes mellitus complication detail: with foot ulcer Diabetes mellitus complication status: with skin complications Diabetes mellitus terminal block assembler insulin use: with terminal block assembler use (2) Type 2 diabetes mellitus Diabetes mellitus complication detail: with foot ulcer Diabetes mellitus complication status: with skin complications Diabetes mellitus senior care insulin use: with senior care use Qualified Code(s): E11.621 - Type 2 diabetes mellitus with foot ulcer; L97.509 - Non-pressure chronic ulcer of other part of unspecified foot with unspecified severity; Z79.4 - correction (current) use of insulin
[2024-11-04 10:55] LABS: Basophils # (auto) 0.05 K/uL (0.00-0.20); Basophils % (auto) 0.7 %; Eosinophils # (auto) 0.16 K/uL (0.00-0.50); Eosinophils % (auto) 2.4 %; Hematocrit (blood only) 34.3 % (42.0-52.0); Hemoglobin 11.2 g/dl (14.0-18.0); Immature Granulocytes # (auto) 0.02 K/uL (0.01-0.20); Immature Granulocytes % (auto) 0.3 %; Lymphocytes % (auto) 14.9 %; Mean Corpuscular Hemoglobin 28.9 pg (25.0-34.0); Mean Corpuscular Hgb Conc 32.7 g/dL (32.0-36.0); Mean Corpuscular Volume 88.4 fL (80.0-100.0); Monocytes % (auto) 10.5 %; Neutrophils # (auto) 4.76 K/uL (1.40-6.50); Neutrophils % (auto) 71.2 %; Platelet Count 214 K/uL (130-400); RDW Coefficient of Variation 13.4 % (11.5-14.5); RDW Standard Deviation 43.5 fL (36.4-46.3); Red Blood Count 3.88 M/uL (4.70-6.10); White Blood Count 6.69 K/ul (4.8-10.8)
[2024-11-04 11:17] LABS: Alanine Aminotransferase 10 U/L (7-52); Albumin Globulin Ratio 0.9 (0.9-2); Albumin Level 3.5 gm/dl (3.4-5.0); Alkaline Phosphatase 84 U/L (34-104); Anion Gap 4 (3-11); Aspartate Aminotransferase 18 U/L (13-39); BUN Creatinine Ratio 19.9 (10-20); Bilirubin,Total 0.5 mg/dl (0.2-1.0); Blood Urea Nitrogen 37 mg/dl (6-23); C Reactive Protein 2.29 mg/dl (0-0.5); Calcium 9.3 mg/dl (8.6-10.3); Carbon Dioxide 27 mmol/L (21-32); Chloride 102 mmol/L (98-107); Glucose 518 mg/dl (70-99(Fasting)); Potassium 4.9 mmol/L (3.5-5.1); Sodium 133 mmol/L (136-145); Total Protein 7.5 gm/dl (6.0-8.3)
[2024-11-04] MEDS ORDERED: GLUCOSE 40% GEL 15 GM TUBE PO PRN (11:42)
[2024-11-04] MEDS ORDERED: GLUCAGON FOR INJ 1 MG VIAL SQ PRN (11:42)
[2024-11-04] MEDS ORDERED: DEXTROSE 50% 50 ML SYRINGE IV PRN (11:42)
[2024-11-04] MEDS ORDERED: CARBOHYDRATES FOR HYPOGLYCEMIA PO PRN (11:42)
[2024-11-04] MEDS ORDERED: PHARMACY GLYCEMIC MGMT CONSULT PRN (11:42)
[2024-11-04] MEDS ORDERED: GLUCOSE 10 TAB/TUBE PO PRN (11:42)
[2024-11-04] MEDS: NovoLIN-R INSULIN PER UNIT CHARGE IV STA (12:10)
[2024-11-04] MEDS: Patient's HEIGHT &/or WEIGHT Needed STA (12:20)
--- NOTE | 2024-11-04 13:43 | Ultrasound Report ---
US arterial duplex LE BI HISTORY: 69 years-old Male ?PAD acute pain of the lower legs with possible peripheral arterial disea se COMPARISON: Ankle-brachial indices 09/10/2024 TECHNIQUE: Multiple real-time sonographic images of the lower extremity arterial structures were obta ined assessing grayscale appearance, color and spectral flow FINDINGS: RIGHT LOWER EXTREMITY: Atherosclerosis. Mostly triphasic waveforms noted. No high-grade stenosis or a rterial occlusion. LEFT LOWER EXTREMITY: Atherosclerosis. Triphasic waveforms are noted extending from the common femora l to the popliteal artery. Biphasic waveforms within the arteries of the lower leg. No arterial occlu aidan. Elevated peak systolic velocities within dorsalis pedis artery measure up to 236 cm/s distally. IMPRESSION: 1. No arterial occlusion. 2. Elevated peak systolic velocities in the left dorsalis pedis artery compatible with hemodynamicall y significant stenosis. ACT 112: Negative or not required by law. The above report was generated using voice recognition software. It may contain grammatical, syntax o r spelling errors. Electronically signed by: Ayaz Nichols M.D. 11/04/2024 1:42 PM
[2024-11-04] MEDS ORDERED: LANTUS PER UNIT CHARGE SC ONE (13:45)
--- NOTE | 2024-11-04 14:47 | Pharmacy Report ---
Pharmacy Glycemic Short Note 2 - Date of Service November 04, 2024 - Glycemic Short BSG Results (Last 24 hours): 11/04/24 11/04/24 10:18 13:34 Glucose 518 H* POC Glucose 256 H OUTPATIENT ANTIDIABETIC REGIMEN: * Novolin-N 22 units SQ QAM, 14 units SQ QPM * Novolin-R 10 units SQ BIDM + SS * HbA1c 9.0% (09/10/24) ASSESSMENT: * Kwaku is a 69 YOM admitted with hyperglycemia and foot blisters (r/o osteomyelitis) with a history of T2DM. Pharmacy has been consulted to assist with glycemic management while inpatient. He is familiar to the glycemic service from his recent admission in August and was historically very labile. * BSG upon admission over 500, 10 units IV regular insulin administered, BSGs trended down to mid 200s. Will initiate basal insulin with Lantus similar to home doseage allowing for 25% increase or decrease based on evening BSG. * NovoLog initiated at previous parameters, will continue to monitor and titrate. PLAN FOR INPATIENT GLYCEMIC CONTROL: * Hold outpatient oral diabetes medications * Basal insulin * Lantus 20 units SQ now x1, then daily * Lantus 0-20 units SQ HS * Bolus insulin * NovoLog per scale ACHS or Q6hrs while NPO * Goal Range: Low 110 mg/dL - High 140 mg/dL * Correction Factor: 20 mg/dL/unit * Nutritional / Prandial insulin per carb ratio of 1 unit per 3 grams CHO consumed
[2024-11-04] MEDS: INSULIN ASPART PER UNIT CHARGE SC SCH (15:30)
[2024-11-04] MEDS: LANTUS PER UNIT CHARGE SC ONE (15:31)
--- NOTE | 2024-11-04 16:21 | Emergency Department Note ---
ED Provider Note CHIEF COMPLAINT: Foot wounds HISTORY OF PRESENT ILLNESS: This 69-year-old male patient presents emergency department with complaints of bilateral foot wounds. He is currently an inmate and states he was prescribed VALERIA stockings several days ago. He does not have great sensation in either foot. They noticed today that there is a significant amount of skin missing from the bilateral lower extremities. He believes it is related to the compression socks. Patient has had several toes removed from both feet secondary to osteomyelitis. He states he takes Enbrel for ulcerative colitis, has a history of CVA, diabetes, peripheral neuropathy, hypertension. REVIEW OF SYSTEMS: A review of systems was performed with positives and pertinent negatives listed in the history of present illness. 10 systems were reviewed and are otherwise negative. ALLERGIES: see below MEDICATIONS: see below PMH: see below SOCIAL HISTORY: see below DDx: Diabetic foot wound, traumatic skin removal, cellulitis, osteomyelitis among others. PHYSICAL EXAM: Vital signs reviewed. General: Well-appearing 69-year-old male, in no significant distress. HEENT: No scleral icterus, PERRLA, neck supple. Moist mucous membranes Cardiovascular: Regular rate and rhythm, no extra sounds. Pulmonary: Clear to auscultation bilaterally, normal work of breathing. Abdomen: Soft, nontender, nondistended, positive bowel sounds. Musculoskeletal: Atraumatic, no peripheral edema. Neurologic: Patient awake alert and oriented x 3, speech is clear Skin: Warm, dry, bilateral lower extremities with degloving type injury to the ball of the foot. No obvious sign of infection. No bleeding. EMERGENCY DEPARTMENT COURSE/MDM: [] RADIOLOGY: X-rays of the bilateral feet per radiology: Left foot: IMPRESSION: 1. No evidence for acute osteomyelitis within the left foot. 2. Lucency and cortical irregularity of the dorsal base of the left fourth middle phalanx suggestive of an age-indeterminate fracture. 3. Status post left first and second digit amputation. Right foot: IMPRESSION: 1. Status post right first and second digit amputations, as described above. Mild osseous irregularity of the distal remaining portion of the right first proximal phalanx. This may be postsurgical however osteomyelitis could appear similar. 2. No additional sites of bony erosion within the right foot. DISPOSITION: Admission Past Med/Surg History Problem List Tear of skin of plantar aspect of foot Diabetes mellitus with peripheral angiopathy with gangrene Hypoglycemia (Acute) Failure of outpatient treatment (Acute) Osteomyelitis (Acute) CKD stage 3b, GFR 30-44 ml/min Ulcerative colitis H/O: CVA (cerebrovascular accident) Acute osteomyelitis of toe of right foot Vocal cord anomaly Rheumatoid arthritis Head injury (Acute) Orthostatic hypotension (Acute) Type 2 diabetes mellitus with polyneuropathy Diabetic ulcer of left foot associated with diabetes mellitus due to underlying condition, with necrosis of bone Cellulitis of foot, left (Acute) Type 2 diabetes mellitus Right lower lobe pneumonia (Acute) SOB (shortness of breath) (Acute) Acute hyperkalemia (Acute) Orthostatic hypotension Recurrent syncope Surgical history unknown HTN (hypertension) (Chronic) Diabetes (Chronic) Hyperlipidemia (Chronic) CVA (cerebral infarction) (Acute 2016) Colitis Syncope (Acute 2016) Medical History APRIL (acute kidney injury) Diabetic foot ulcer CKD (chronic kidney disease) APRIL (acute kidney injury) Elevated troponin HHNC (hyperglycemic hyperosmolar nonketotic coma) Orthostatic hypotension (2016) Anemia Surgical History S/P craniotomy Family History Other Family history non-contributory Social History Smoking Status: Former smoker Tobacco Type: Cigarettes Age Started Using Tobacco: 13; packs per day: 0.5; Second Hand Exposure: No; Do You Dip or Chew Tobacco: No; Hx Alcohol Use: No Hx Substance Use: Yes Prescribed Medications: Marijuana Last Used Substance: Unknown Last Used Substance Other:: >5 years ago Substance Use Type Other:: K2 Preferred Language: Nepali Communication Ability: Effective Sales Strategy Manager Required: No Beliefs That Will Affect Care: None marital status: Current Living Situation: Other Current Living Situation Comment: [facility] current occupational status: unemployed Other Information That Helps Us Care for You: No Feels Safe at Home: Yes Safety Concerns: Feels Safe At This Time Assistive Devices: Glasses Allergies Allergies Allergy/AdvReac Type Severity Reaction Status Date / Time No Known Allergies Allergy Verified 11/04/24 12:25 Home Meds Home Medications Medication Instructions Recorded Confirmed docusate sodium 100 mg tablet 100 mg PO BID PRN Constipation 10/18/20 11/04/24 etanercept 50 mg/mL (1 mL) 50 mg subcut WK 10/18/20 11/04/24 subcutaneous syringe (Enbrel) folic acid 1 mg tablet 1 mg PO DAILY 10/18/20 11/04/24 hydroxychloroquine 200 mg tablet 200 mg PO DAILY 10/18/20 11/04/24 nortriptyline 25 mg capsule 25 mg PO BID 10/18/20 11/04/24 amlodipine 10 mg tablet 10 mg PO DAILY 10/05/22 11/04/24 atorvastatin 10 mg tablet 10 mg PO DAILY 10/05/22 11/04/24 albuterol sulfate 90 mcg/actuation 2 puff inhalation QID PRN 03/12/23 11/04/24 aerosol inhaler Shortness Of Breath glucose 4 gram chewable tablet See Rx Instructions .Route 03/12/23 11/04/24 .COMPLEX PRN HYPOGLYCLEMIA cyanocobalamin (vitamin B-12) 500 500 mcg PO DAILY 02/10/24 11/04/24 mcg tablet insulin regular human 100 unit/mL 0 sliding scale dose subcut UD PRN 02/10/24 11/04/24 (3 mL) subcutaneous pen (Novolin R Hyperglycemia FlexPen) insulin regular human 100 unit/mL 10 unit subcut BIDWMEAL 02/10/24 11/04/24 (3 mL) subcutaneous pen (Novolin R FlexPen) metformin 500 mg tablet 500 mg PO BID 09/09/24 11/04/24 valsartan 80 mg tablet 80 mg PO DAILY 09/09/24 11/04/24 emollient See Rx Instructions .Route .COMPLEX 11/04/24 11/04/24 furosemide 20 mg tablet 20 mg PO DAILY 11/04/24 11/04/24 sulfamethoxazole 800 1 tab PO BID 11/04/24 11/04/24 mg-trimethoprim 160 mg tablet (Bactrim DS) Previous Rx's Medication Instructions Recorded insulin NPH isoph U-100 human 100 14 unit (0.14 mL) subcut QPM #0 mL 09/18/24 unit/mL (3 mL) subcutaneous pen (Novolin N FlexPen) insulin NPH isoph U-100 human 100 22 unit (0.22 mL) subcut QAM #0 mL 09/18/24 unit/mL (3 mL) subcutaneous pen (Novolin N FlexPen) Results & Data (ED) Vital Signs Vital Signs - 24 hr 11/04/24 08:57 11/04/24 10:39 Temperature 36.3 C L Temperature Source Oral Pulse Rate 79 Pulse Rate [Apical] 65 Respiratory Rate 18 16 Blood Pressure 161/89 H Blood Pressure [Right Arm] 141/69 H Blood Pressure Mean 113 Blood Pressure Mean [Right Arm] 93 Blood Pressure Position Sitting Pulse Oximetry 95 98 Oxygen Delivery Method Room Air Room Air Sepsis Recent Fever Within 48 Hours No Sepsis New/Unexplained Change in Mental Status No Sepsis Action Taken by Nursing No Action Required Home Medications Current Medication List: was personally reviewed by me Laboratory Data Attestation: I reviewed the patient's lab results. 11/04/24 10:18 11/04/24 10:18 Lab Results 11/04/24 Range/Units 10:18 WBC 6.69 (4.8-10.8) K/ul RBC 3.88 L (4.70-6.10) M/uL Hgb 11.2 L (14.0-18.0) g/dl Hct 34.3 L (42.0-52.0) % MCV 88.4 (80.0-100.0) fL MCH 28.9 (25.0-34.0) pg MCHC 32.7 (32.0-36.0) g/dL RDW Std Deviation 43.5 (36.4-46.3) fL RDW Coeff of Vidal 13.4 (11.5-14.5) % Plt Count 214 (130-400) K/uL MPV 11.0 (9.4-12.4) fL Immature Gran % (Auto) 0.3 % Neut % (Auto) 71.2 % Lymph % (Auto) 14.9 % Pettis % (Auto) 10.5 % Eos % (Auto) 2.4 % Baso % (Auto) 0.7 % Neut # (Auto) 4.76 (1.40-6.50) K/uL Lymph # (Auto) 1.00 L (1.20-3.40) K/uL Pettis # (Auto) 0.70 H (0.11-0.59) K/uL Eos # (Auto) 0.16 (0.00-0.50) K/uL Baso # (Auto) 0.05 (0.00-0.20) K/uL Immature Gran # (Auto) 0.02 (0.01-0.20) K/uL ESR 42 H (0-20) mm/hr Sodium 133 L (136-145) mmol/L Potassium 4.9 (3.5-5.1) mmol/L Chloride 102 (98-107) mmol/L Carbon Dioxide 27 (21-32) mmol/L Anion Gap 4 (3-11) BUN 37 H (6-23) mg/dl Creatinine 1.86 H (0.6-1.4) mg/dl Est Cr Clr Drug Dosing Not Reportable eGFR 38.21 BUN/Creatinine Ratio 19.9 (10-20) Glucose 518 H* (70-99(Fasting)) mg/dl Calcium 9.3 (8.6-10.3) mg/dl Total Bilirubin 0.5 (0.2-1.0) mg/dl AST 18 (13-39) U/L ALT 10 (7-52) U/L Alkaline Phosphatase 84 (34-104) U/L C-Reactive Protein 2.29 H (0-0.5) mg/dl Total Protein 7.5 (6.0-8.3) gm/dl Albumin 3.5 (3.4-5.0) gm/dl Globulin 4.0 (2.5-4.0) gm/dl Albumin/Globulin Ratio 0.9 (0.9-2) Administered Medications Insulin Aspart (Insulin Aspart Per Unit Charge) 0 units SC ACHS REINA Stop: 12/04/24 13:29 Last Admin: 11/04/24 15:30 Dose: 14 units Documented By: GENET Co-signed By: TANESHA Discontinued Medications Insulin Glargine (Lantus Per Unit Charge) 20 units SC NOW ONE Stop: 11/04/24 13:46 Last Admin: 11/04/24 15:31 Dose: 20 units Documented By: GENET Co-signed By: TANESHA Insulin Human Regular (Novolin-R Insulin Per Unit Charge) 10 units IV NOW STA Stop: 11/04/24 11:59 Last Admin: 11/04/24 12:10 Dose: 10 units Documented By: JUANITA Co-signed By: SANJAY Miscellaneous (Patient's Height &/Or Weight Needed) 1 each N/A NOW STA Stop: 11/04/24 12:00 Last Admin: 11/04/24 12:20 Dose: Not Given Documented By: JUANITA Imaging Data Radiologist's Impression: Foot X-Ray 11/04/24 09:28 XR foot LT min 3V routine CLINICAL HISTORY: diabetic foot wounds, ball of foot COMPARISON: Left foot radiographs September 19, 2022. CT of the left foot September 15, 2023. MRI of the left foot September 15, 2023. FINDINGS: Tarsometatarsal joints are intact. There are postoperative findings consistent with amputation of the left first distal phalanx and the left second proximal, middle and distal phalanges. On lateral projection, there is lucency and cortical irregularity of the dorsal base of the left fourth middle phalanx. No areas of bony erosion are identified. There is extensive vascular calcification. Left forefoot soft tissue swelling is present. IMPRESSION: 1. No evidence for acute osteomyelitis within the left foot. 2. Lucency and cortical irregularity of the dorsal base of the left fourth middle phalanx suggestive of an age-indeterminate fracture. 3. Status post left first and second digit amputation. ACT 112: Negative or not required by law. Electronically signed by: Gerardo Patterson M.D. 11/04/2024 10:07 AM Foot X-Ray 11/04/24 09:28 XR foot RT min 3V routine CLINICAL HISTORY: diabetic foot wounds, ball of foot COMPARISON: Right foot radiographs August 12, 2024. Right foot CT September 19, 2024. FINDINGS: There are postoperative findings consistent with amputation of the right first distal phalanx and distal aspect of the right first proximal phalanx. Note is made of mild osseous irregularity of the remaining portion of the right first proximal phalanx. There are also postoperative findings consistent with amputation of the middle and distal phalanges of the second toe. No definite bony erosions within the right foot are present. There are no fractures. Posterior calcaneal spurring is present. There is extensive vascular calcification. IMPRESSION: 1. Status post right first and second digit amputations, as described above. Mild osseous irregularity of the distal remaining portion of the right first proximal phalanx. This may be postsurgical however osteomyelitis could appear similar. 2. No additional sites of bony erosion within the right foot. ACT 112: Negative or not required by law. Electronically signed by: Gerardo Patterson M.D. 11/04/2024 10:00 AM Discharge Plan Visit Data Chief Complaint: Wound Stated Complaint: DIABETIC ULCERS TO BOTH FEET ED Provider: Kyung Holt Patient Disposition: Admitted As Inpatient Discharge Instructions Interventions: ED Discharge Assessment Last Done: 11/04/24 14:00
[2024-11-04] MEDS ORDERED: metFORMIN HCL 500 MG TAB PO SCH (21:00)
[2024-11-04] MEDS: NORTRIPTYLINE HCL 25 MG CAP PO SCH (21:15)
[2024-11-04] MEDS: LANTUS PER UNIT CHARGE SC SCH (21:18)
--- NOTE | 2024-11-05 06:29 | Podiatry Consultation ---
Date of Consultation November 05, 2024 Assessment & Plan (1) Diabetic ulcer of right foot associated with diabetes mellitus due to underlying condition, with fat layer exposed: Diabetic foot ulcer location: toe Qualified Code(s): E08.621 - Diabetes mellitus due to underlying condition with foot ulcer; L97.512 - Non- pressure chronic ulcer of other part of right foot with fat layer exposed (2) Diabetic ulcer of left foot associated with diabetes mellitus due to underlying condition, limited to breakdown of skin: Diabetic foot ulcer location: other Qualified Code(s): E08.621 - Diabetes mellitus due to underlying condition with foot ulcer; L97.521 - Non- pressure chronic ulcer of other part of left foot limited to breakdown of skin (3) Loss of protective sensation of skin of deformed foot with peripheral vascular disease of foot: Plan Right foot: Plain film radiographs of the right foot personally reviewed. Superficial wound to the plantar aspect of the right hallux with no extension to the subcutaneous tissue or deeper soft tissue structures. No signs of local soft tissue infection. Taking clinical findings into consideration I believe that x-ray findings are most likely secondary to postsurgical changes at the distal end of the hallux remnant and not likely to be secondary to an acute osteomyelitis. Recommend offloading of the right foot with a postop shoe and daily wound care with Silvadene and a dry sterile dressing for the right foot wound. Dressing placed to all open wounds. Right third toe: Will see patient again to 11/06/2024 to reevaluate the right third toe. Possible need for amputation right third toe with any further development of gangrenous changes distally. While i necessary will have this case on later in the day. N.p.o. orders placed from midnight. Will keep patient n.p.o. tomorrow until foot is reevaluated. Left foot: Left foot wound at high risk for development of soft tissue infection with necrotic tissue centrally in the wound bed however there is no signs of local soft tissue infection or deep extension of the wound at this time. Recommend offloading left foot postsurgical shoe. Minimize weightbearing to the left foot whenever possible. Elevate bilateral lower extremity on 2 pillows while at rest. Initial dressing recommendation for once daily application of Silvadene and a dry sterile dressing followed by lightly applied Mayank bandage to the level of the distal knee.Plain film radiographs left foot reviewed. Noninvasive vascular studies reviewed. There is concern for hemodynamically significant stenosis of the left dorsalis pedis artery noted however this should not significantly affect the healing potential plantar foot. Will monitor wound healing closely and make appropriate referrals as needed. Nonthermal blister of the distal aspect of the fourth toe is intact with no signs of local soft tissue infection. Order: Bilateral postop shoe Order: Dressing change once daily Silvadene to all open wounds followed by dry sterile dressing. Order: N.p.o. at midnight for possible surgical intervention 11/06/2024. Thank for consulting podiatry date in the care of this patient. Will continue to follow closely during his hospital stay and make recommendations for follow- up at time of discharge. History of Present Illness Reason for Consultation: Concern for osteomyelitis versus postsurgical changes right hallux remnant Attending Physician: Heath Willis MD History of Present Illness 69-year-old male past medical history significant for type 2 diabetes with diabetic peripheral neuropathy, history of first and second digit amputation for management of osteomyelitis secondary to diabetic foot wounds bilateral. Left first and second digit amputation 2022. Right first and second digit amputation 2023. Patient is inmate at [place] since 2002. Patient presents to [facility] emergency department on 11/04/2024 at the request of in-house physician with concern for bilateral foot ulcerations in the presence of poorly controlled type 2 diabetes. Patient feels that she is compression socks which are open toe restricting venous outflow from the foot which caused significant swelling of the forefoot bilaterally prior to developing bilateral blisters on the plantar foot. Reports mild discomfort in the bilateral foot. Denies nausea, vomiting, fever, chills, shortness of breath, chest pain. Allergies Allergy/AdvReac Type Severity Reaction Status Date / Time No Known Allergies Allergy Verified 11/04/24 12:25 Home Medications Medication Instructions Recorded Confirmed Type docusate sodium 100 mg tablet 100 mg PO BID PRN Constipation 10/18/20 11/04/24 History etanercept 50 mg/mL (1 mL) 50 mg subcut WK 10/18/20 11/04/24 History subcutaneous syringe (Enbrel) folic acid 1 mg tablet 1 mg PO DAILY 10/18/20 11/04/24 History hydroxychloroquine 200 mg tablet 200 mg PO DAILY 10/18/20 11/04/24 History nortriptyline 25 mg capsule 25 mg PO BID 10/18/20 11/04/24 History amlodipine 10 mg tablet 10 mg PO DAILY 10/05/22 11/04/24 History atorvastatin 10 mg tablet 10 mg PO DAILY 10/05/22 11/04/24 History albuterol sulfate 90 mcg/actuation 2 puff inhalation QID PRN 03/12/23 11/04/24 History aerosol inhaler Shortness Of Breath glucose 4 gram chewable tablet See Rx Instructions .Route 03/12/23 11/04/24 History .COMPLEX PRN HYPOGLYCLEMIA cyanocobalamin (vitamin B-12) 500 500 mcg PO DAILY 02/10/24 11/04/24 History mcg tablet insulin regular human 100 unit/mL 0 sliding scale dose subcut UD PRN 02/10/24 11/04/24 History (3 mL) subcutaneous pen (Novolin R Hyperglycemia FlexPen) insulin regular human 100 unit/mL 10 unit subcut BIDWMEAL 02/10/24 11/04/24 History (3 mL) subcutaneous pen (Novolin R FlexPen) metformin 500 mg tablet 500 mg PO BID 09/09/24 11/04/24 History valsartan 80 mg tablet 80 mg PO DAILY 09/09/24 11/04/24 History insulin NPH isoph U-100 human 100 14 unit (0.14 mL) subcut QPM #0 mL 09/18/24 11/04/24 Rx unit/mL (3 mL) subcutaneous pen (Novolin N FlexPen) insulin NPH isoph U-100 human 100 22 unit (0.22 mL) subcut QAM #0 mL 09/18/24 11/04/24 Rx unit/mL (3 mL) subcutaneous pen (Novolin N FlexPen) emollient See Rx Instructions .Route .COMPLEX 11/04/24 11/04/24 History furosemide 20 mg tablet 20 mg PO DAILY 11/04/24 11/04/24 History sulfamethoxazole 800 1 tab PO BID 11/04/24 11/04/24 History mg-trimethoprim 160 mg tablet (Bactrim DS) Patient History Medical History APRIL (acute kidney injury) Diabetic foot ulcer CKD (chronic kidney disease) APRIL (acute kidney injury) Elevated troponin HHNC (hyperglycemic hyperosmolar nonketotic coma) Orthostatic hypotension (2015) Anemia Surgical History S/P craniotomy Family History Other Family history non-contributory Social History Smoking Status: Former smoker Tobacco Type: Cigarettes Age Started Using Tobacco: 13; packs per day: 0.5; Second Hand Exposure: No; Do You Dip or Chew Tobacco: No; Hx Alcohol Use: No Hx Substance Use: Yes Prescribed Medications: Marijuana Last Used Substance: Unknown Last Used Substance Other:: >5 years ago Substance Use Type Other:: K2 Preferred Language: Citizen Of [place] Communication Ability: Effective Vice [employer] Required: No Beliefs That Will Affect Care: None marital status: Current Living Situation: Other Current Living Situation Comment: [employer] current occupational status: unemployed Other Information That Helps Us Care for You: No Feels Safe at Home: Yes Safety Concerns: Feels Safe At This Time Assistive Devices: Glasses Review of Systems Review of Systems: Systems reviewed. Negative unless otherwise stated in HPI. Physical Exam Physical Exam: Const: Appears well developed and well nourished. No signs of acute distress present. CV: Extremities: No cyanosis or edema. Capillary refill time is less than 2 seconds all digits of the bilateral foot. Posterior tibial and dorsalis pedis pulses are palpable bilateral. Lymph: No palpable or visible regional lymphadenopathy. Skin: No scars, rashes, lesions or ecchymosis. Neuro: Sensation intact to light touch in all areas of the foot and ankle. Psych: Mood/Affect: Mood is normal. Affect is normal. Cognition: Orientation is intact to person, place and time. Focused lower extremity musculoskeletal exam: Leg: No pain with compression of the calf muscle. Ankles: Normal to inspection and palpation. No swelling bilaterally. No tenderness bilaterally. Motor strength is intact. Range of motion pain-free and unlimited. Left foot: Status post second digit amputation and partial hallux amputation both incisions well-healed. Ulceration centered over the third fourth and fifth metatarsal heads with necrosis of the skin centrally subfourth and fifth metatarsal heads. Intact superficial bolus formation distal aspect of the third digit. Wound does not probe or track in any direction. No periwound erythema or edema. Active serous drainage. No malodor. Superficial breakdown of the skin of the dorsal aspect of the left fourth toe overlying the distal interphalangeal joint with active serous drainage. No s igns of local soft tissue infection. Right foot: Status post partial first and second digit amputation both incisions well-healed. Superficial blister plantar to the hallux remnant which has been deroofed. Active serous drainage. No signs of secondary soft tissue infection. Ulceration to the distal aspect of the right third toe. This area is concerning for necrosis of the subcutaneous tissue which may extend to the level of bone distally. No periwound erythema or edema. Results & Data Vital Signs (Past 12 Hours) Vital Signs Temp Pulse Resp BP Pulse Ox O2 Del Method 11/04/24 22:59 36.7 C 66 18 161/76 H 99 Room Air Laboratory Results WBC 6.69, ESR 42, CRP 2.29 Creatinine 1.86 Diagnostic Findings Lower extremity arterial duplex 11/04/2024: IMPRESSION: 1. No arterial occlusion. 2. Elevated peak systolic velocities in the left dorsalis pedis artery compatible with hemodynamically significant stenosis. X-ray 3 views right foot 11/04/2024:IMPRESSION: 1. Status post right first and second digit amputations, as described above. Mild osseous irregularity of the distal remaining portion of the right first proximal phalanx. This may be postsurgical however osteomyelitis could appear similar. 2. No additional sites of bony erosion within the right foot. X-ray 3 views left foot 11/04/2024:IMPRESSION: 1. No evidence for acute osteomyelitis within the left foot. 2. Lucency and cortical irregularity of the dorsal base of the left fourth middle phalanx suggestive of an age-indeterminate fracture. 3. Status post left first and second digit amputation. PG Care Time/CCT Total # of Minutes Spent Total Time Spent with Patient: Total time spent is greater than 50% in coordination of care (as documented) at patient's floor/unit and/or counseling patient: [place] [address] INT INP/OBS CARE 2/55MIN Patient Type New History Comprehensive Exam Comprehensive Medical Decision Making Moderate Complexity Diagnoses Diabetic ulcer of toe of right foot associated with diabetes mellitus due to underlying condition, with fat layer exposed E08.621; L97.512 Diabetic foot ulcer location: toe Diabetic ulcer of other part of left foot associated with diabetes mellitus due to underlying condition, limited to breakdown of skin E08.621; L97.521 Diabetic foot ulcer location: other Loss of protective sensation of skin of deformed foot with peripheral vascular disease of foot I73.9; M21.969; R20.8
[2024-11-05 07:34] VITALS: RESP 16
[2024-11-05] MEDS: INSULIN HUMAN NPH SC SCH (08:43)
[2024-11-05] MEDS: FOLIC ACID 1 MG TAB PO SCH (08:46)
[2024-11-05] MEDS: FUROSEMIDE 20 MG TAB PO SCH (08:46)
[2024-11-05] MEDS: ATORVASTATIN 10 MG TAB PO SCH (08:46)
[2024-11-05] MEDS: amLODIPine BESYLATE 5 MG TAB PO SCH (08:46)
[2024-11-05] MEDS: VALSARTAN 80 MG TAB PO SCH (08:46)
[2024-11-05] MEDS: HYDROXYCHLOROQUINE SULFATE 200 MG TAB PO SCH (08:46)
[2024-11-05] MEDS ORDERED: LANTUS PER UNIT CHARGE SC SCH (09:00)
[2024-11-05 10:37] LABS: Estimated Average Glucose 203 mg/dl; Hemoglobin A1C 8.7 % (4.5-5.6)
--- NOTE | 2024-11-05 11:33 | Hospitalist Progress Note ---
Date of Service November 05, 2024 Assessment & Plan (1) Loss of protective sensation of skin of deformed foot with peripheral vascular disease of foot: Plan: Presents with tear on the plantar aspect of foot Continue wound care Does not appear overtly infected CRP, 2.9 (2) Diabetic ulcer of left foot associated with diabetes mellitus due to underlying condition, limited to breakdown of skin: Plan: gangrene of left 3rd toe Podiatry on board Plan is for OR tomorrow for debridement or amputation (3) Diabetic ulcer of right foot associated with diabetes mellitus due to underlying condition, with fat layer exposed: Plan: Continue wound care (4) Diabetes mellitus with peripheral angiopathy with gangrene: Plan: A1c 8.7 Will continue Insulin and insulin sliding scale continue to monitor blood glucose (5) CKD stage 3b, GFR 30-44 ml/min: (6) H/O: CVA (cerebrovascular accident): Plan Full code Continue hospitalization Admission and Anticipated Discharge Date Admission Date: November 04, 2024 Subjective patient seen and examined, no new complanits Review of Systems Review of Systems: All systems reviewed are negative, apart from the ones contained in the history. Physical Exam Physical Exam: The patient is awake, alert and oriented 3, well developed and well nourished, normocephalic and atraumatic, lying in bed and in no acute distress. HEENT--PERRL, EOMI, mucous membranes and oropharynx mildly dry Neck--supple. No JVD. No bruits. Thyroid normal, trachea midline, no adenopathy. Heart--normal S1 and S2. No murmurs, rubs or gallops. Lungs--clear bilaterally, no respiratory distress, no accessory muscle use. Abdomen--normal bowel sounds and soft. Extremities--diabetic foot ulcers Dermatologic--normal skin turgor, normal color, no abnormal lymph nodes, no rash. Neurologic--cranial nerves II through XII grossly intact. Rheumatologic--normal range of motion. Psychiatric--normal affect. Results & Data Results & Data Vital Signs (Past 12 Hours) Vital Signs Temp Pulse Resp BP Pulse Ox O2 Del Method 11/05/24 07:31 97.7 F 66 16 160/88 H 97 Room Air PG Care Time/CCT Total # of Minutes Spent Total Time Spent with Patient: Total time spent is greater than 50% in coordination of care (as documented) at patient's floor/unit and/or counseling patient: Coding Level of Care Code 89284 SUB INP/OBS CARE 2/35MIN Diagnoses Loss of protective sensation of skin of deformed foot with peripheral vascular disease of foot I73.9; M21.969; R20.8 Diabetic ulcer of other part of left foot associated with diabetes mellitus due to underlying condition, limited to breakdown of skin E08.621; L97.521 Diabetic foot ulcer location: other Diabetic ulcer of toe of right foot associated with diabetes mellitus due to underlying condition, with fat layer exposed E08.621; L97.512 Diabetic foot ulcer location: toe Type 2 diabetes mellitus with diabetic peripheral angiopathy and gangrene, without long-term current use of insulin E11.52 Diabetes mellitus type: type 2 Diabetes mellitus mcc insulin use: without mcc use CKD stage 3b, GFR 30-44 ml/min N18.32 H/O: CVA (cerebrovascular accident) Z86.73 Time Spent (min) 35 (2) Diabetic ulcer of left foot associated with diabetes mellitus due to underlying condition, limited to breakdown of skin Diabetic foot ulcer location: other Qualified Code(s): E08.621 - Diabetes mellitus due to underlying condition with foot ulcer; L97.521 - Non-pressure chronic ulcer of other part of left foot limited to breakdown of skin (3) Diabetic ulcer of right foot associated with diabetes mellitus due to underlying condition, with fat layer exposed Diabetic foot ulcer location: toe Qualified Code(s): E08.621 - Diabetes mellitus due to underlying condition with foot ulcer; L97.512 - Non-pressure chronic ulcer of other part of right foot with fat layer exposed (4) 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
[2024-11-05] MEDS: SILVER SULFADIAZINE 1% CR 50 GM JAR/TUBE EXT SCH (14:50)
[2024-11-05 19:14] VITALS: PULSE 69
[2024-11-06] MEDS: INSULIN ASPART PER UNIT CHARGE SC SCH ×2 (06:25→12:57)
[2024-11-06 06:26] LABS: Hematocrit (blood only) 37.3 % (42.0-52.0); Hemoglobin 12.4 g/dl (14.0-18.0); Mean Corpuscular Hemoglobin 28.8 pg (25.0-34.0); Mean Corpuscular Hgb Conc 33.2 g/dL (32.0-36.0); Mean Corpuscular Volume 86.5 fL (80.0-100.0); Mean Platelet Volume 10.8 fL (9.4-12.4); Platelet Count 223 K/uL (130-400); RDW Coefficient of Variation 13.4 % (11.5-14.5); RDW Standard Deviation 42.3 fL (36.4-46.3); Red Blood Count 4.31 M/uL (4.70-6.10); White Blood Count 7.95 K/ul (4.8-10.8)
[2024-11-06 07:04] LABS: BUN Creatinine Ratio 20.5 (10-20); Calcium 8.7 mg/dl (8.6-10.3)
[2024-11-06] MEDS ORDERED: INSULIN HUMAN NPH SC SCH (07:30)
[2024-11-06 08:32] VITALS: BP 155/81; TEMP 97.5; O2SAT 97
--- NOTE | 2024-11-06 08:38 | Podiatry Progress Note ---
Date of Service November 06, 2024 Assessment & Plan (1) Diabetic ulcer of left foot associated with diabetes mellitus due to underlying condition, limited to breakdown of skin: (2) Diabetic ulcer of right foot associated with diabetes mellitus due to underlying condition, with fat layer exposed: (3) Loss of protective sensation of skin of deformed foot with peripheral vascular disease of foot: Plan Right foot: Plain film radiographs of the right foot personally reviewed. Superficial wound to the plantar aspect of the right hallux with no extension to the subcutaneous tissue or deeper soft tissue structures. No signs of local soft tissue infection. Taking clinical findings into consideration I believe that x-ray findings are most likely secondary to postsurgical changes at the distal end of the hallux remnant and not likely to be secondary to an acute osteomyelitis. Recommend offloading of the right foot with a postop shoe and daily wound care with Silvadene and a dry sterile dressing for the right foot wound. Right third toe: This morning and I believe at this point the digit is salvageable. No plan for amputation today. Okay to DC n.p.o. order. Mechanical removal of nonviable soft tissue to the distal toe there appears to be healthy intact subcutaneous tissue overlying the distal phalanx. Continue once daily dressing change with Silvadene and a dry sterile dressing. Continue to offload the right foot in postop shoe. Left foot: Wound bed stable. No signs of local soft tissue infection. Recommend offloading left foot postsurgical shoe. Minimize weightbearing to the left foot whenever possible. Elevate bilateral lower extremity on 2 pillows while at rest. Continue once daily application of Silvadene and a dry sterile dressing followed by lightly applied Mayank bandage to the level of the distal knee.Plain film radiographs left foot reviewed. Nonthermal blister of the distal aspect of the fourth toe is intact with no signs of local soft tissue infection. - Bilateral postop shoe. The guards in patient's room at time of postop shoe fitting on 11/05/2024 did not believe he would be able to have postop shoes in the [facility]. Patient reports he has his previous postop shoe in his cell right now and today's guards agree that postop shoes are reasonable. Hopeful to get patient in postop shoes prior to discharge to help offload bilateral plantar foot and distal toe wounds. -Continue dressing change once daily Silvadene to all open wounds followed by dry sterile dressing. Thank for consulting podiatry date in the care of this patient. Will continue to follow closely during his hospital stay and make recommendations for follow- up at time of discharge. Okay for discharge from podiatry standpoint after he receives his postop shoes. Admission and Anticipated Discharge Date Admission Date: November 04, 2024 Subjective Patient resting comfortably in hospital bed with 1 arm and 1 leg handcuffed to the bed and 2 guards present in room from [facility]. Patient denies pain in the bilateral foot. Denies nausea vomiting fever chills. Denies shortness of breath or chest pain. Patient reports having a postop shoe in his cell back a [facility] from previous digital amputations. In discussion with guards sounds like he may end up being held in the [facility] until his wounds heal in which case should be no issue with offloading devices of the bilateral foot. Review of Systems Review of Systems: Systems reviewed. Negative unless otherwise stated in HPI. Physical Exam Physical Exam: Const: Appears well developed and well nourished. No signs of acute distress present. CV: Extremities: No cyanosis or edema. Capillary refill time is less than 2 seconds all digits of the bilateral foot. Posterior tibial and dorsalis pedis pulses are palpable bilateral. Lymph: No palpable or visible regional lymphadenopathy. Skin: No scars, rashes, lesions or ecchymosis. Neuro: Sensation intact to light touch in all areas of the foot and ankle. Psych: Mood/Affect: Mood is normal. Affect is normal. Cognition: Orientation is intact to person, place and time. Focused lower extremity musculoskeletal exam: Leg: No pain with compression of the calf muscle. Ankles: Normal to inspection and palpation. No swelling bilaterally. No tenderness bilaterally. Motor strength is intact. Range of motion pain-free and unlimited. Left foot: Status post second digit amputation and partial hallux amputation both incisions well-healed. Ulceration centered over the third fourth and fifth metatarsal heads with necrosis of the skin centrally subfourth and fifth metatarsal heads. Intact superficial bolus formation distal aspect of the third digit. Wound does not probe or track in any direction. No periwound erythema or edema. Active serous drainage. No malodor. Superficial breakdown of the skin of the dorsal aspect of the left fourth toe overlying the distal interphalangeal joint with active serous drainage. No signs of local soft tissue infection. Right foot: Status post partial first and second digit amputation both incisions well-healed. Superficial blister plantar to the hallux remnant which has been deroofed. Active serous drainage. No signs of secondary soft tissue infection. Ulceration to the distal aspect of the right third toe. Necrotic tissue seen on initial evaluation has started to slough off showing underlying healthy granular tissue and no frankly exposed bone at this time. No periwound erythema and edema. With apparent intact subcutaneous tissue over the distal phalanx I believe digit is salvageable and will continue with local wound care and offloading with close monitoring for any signs of infection. Coding [place] [address] SUB INP/OBS CARE Patient Type Established Diagnoses Diabetic ulcer of other part of left foot associated with diabetes mellitus due to underlying condition, limited to breakdown of skin E08.621; L97.521 Diabetic foot ulcer location: other Diabetic ulcer of toe of right foot associated with diabetes mellitus due to underlying condition, with fat layer exposed E08.621; L97.512 Diabetic foot ulcer location: toe Loss of protective sensation of skin of deformed foot with peripheral vascular disease of foot I73.9; M21.969; R20.8 (1) Diabetic ulcer of left foot associated with diabetes mellitus due to underlying condition, limited to breakdown of skin Diabetic foot ulcer location: other Qualified Code(s): E08.621 - Diabetes mellitus due to underlying condition with foot ulcer; L97.521 - Non-pressure chronic ulcer of other part of left foot limited to breakdown of skin (2) Diabetic ulcer of right foot associated with diabetes mellitus due to underlying condition, with fat layer exposed Diabetic foot ulcer location: toe Qualified Code(s): E08.621 - Diabetes mellitus due to underlying condition with foot ulcer; L97.512 - Non-pressure chronic ulcer of other part of right foot with fat layer exposed
[2024-11-06] MEDS ORDERED: Nursing to Pharmacy Communication SCH (11:15)
--- NOTE | 2024-11-06 11:26 | Hospitalist Progress Note ---
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 Review of Systems Review of Systems: CONST: Negative for fever, body aches and chills. HENT: Negative for neck pain/stiffness, headache, congestion, sore throat, swelling. EYES: Negative for discharge/pain or vision changes. RESP: Negative for cough/hemoptysis and shortness of breath. CV: Negative chest pain, difficulty breathing, palpitations. ABD: Negative pain, nausea, vomiting. : Negative increase frequency, dysuria, blood in urine or stool. MUSC: Negative for muscle aches, edema. SKIN: Negative rash, lesions/sores. NEURO: Negative headache, dizziness, weakness. Physical Exam Physical Exam: GENERAL APPEARANCE NAD, activity normal for age, well developed/ well nourished, no cyanosis, pallor, or diaphoresis. EYES lids/conjunctiva normal. EARS/NOSE/THROAT Mucous membranes moist, nares normal, lips/teeth normal uvula midline without oral pharyngeal erythema, exudate or swelling TMs normal bilaterally. No lymphangitis/lymphedema. HEAD/NECK normocephalic atraumatic, no facial trauma, neck is supple. RESPIRATORY respiratory effort normal, speaks in full sentences, no tripod position, no accessory muscle use. Lungs clear to auscultation without rhonchi, wheezes, rales CARDIAC Regular rate and rhythm, no edema. ABDOMINAL Soft, ND/NT. No evidence of fluid wave. No pulsatile masses on exam, rebound tenderness, Díaz sign or pain over Mcburney's point. MUSCLES/EXTREMITIES No abnormal range of motion, no swelling. Dressing to feet b/l. SKIN Warm, pink and dry. No rashes, dermatoses, petechiae or lesions. NEUROLOGICAL Speech is clear and appropriate. Normal level of consciousness. Gait and coordination are normal. 5/5 strength in all extremities. PSYCH Normal mood and affect. Judgement/competence is appropriate Results & Data Results & Data Vital Signs (Past 12 Hours) Vital Signs Temp Pulse Resp BP Pulse Ox O2 Del Method 11/06/24 08:31 36.4 C L 69 16 155/81 H 97 Room Air PG Care Time/CCT Total # of Minutes Spent Total Time Spent with Patient: Total time spent is greater than 50% in coordination of care (as documented) at patient's floor/unit and/or counseling patient: Coding Level of Care Code 42015 SUB INP/OBS CARE 2/35MIN Diagnoses Diabetic ulcer of other part of left foot associated with diabetes mellitus due to underlying condition, limited to breakdown of skin E08.621; L97.521 Diabetic foot ulcer location: other Diabetic ulcer of toe of right foot associated with diabetes mellitus due to underlying condition, with fat layer exposed E08.621; L97.512 Diabetic foot ulcer location: toe Type 2 diabetes mellitus with diabetic peripheral angiopathy and gangrene, without long-term current use of insulin E11.52 Diabetes mellitus type: type 2 Diabetes mellitus manager long term care insulin use: without manager long term care use CKD stage 3b, GFR 30-44 ml/min N18.32 H/O: CVA (cerebrovascular accident) Z86.73 (1) Diabetic ulcer of left foot associated with diabetes mellitus due to underlying condition, limited to breakdown of skin Diabetic foot ulcer location: other Qualified Code(s): E08.621 - Diabetes mellitus due to underlying condition with foot ulcer; L97.521 - Non-pressure chronic ulcer of other part of left foot limited to breakdown of skin (2) Diabetic ulcer of right foot associated with diabetes mellitus due to underlying condition, with fat layer exposed Diabetic foot ulcer location: toe Qualified Code(s): E08.621 - Diabetes mellitus due to underlying condition with foot ulcer; L97.512 - Non-pressure chronic ulcer of other part of right foot with fat layer exposed (3) 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
--- NOTE | 2024-11-06 12:10 | Discharge Summary ---
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 He reports first noticing blisters a week ago however was any seen by a physician today who after examination of his feet recommended going to the ER for evaluation. He has been using compression stockings which have helped swelling in his legs however he has noticed his feet swelling excessively. No fever or chills. Discharge Exam GENERAL APPEARANCE NAD, activity normal for age, well developed/ well nourished, no cyanosis, pallor, or diaphoresis. EYES lids/conjunctiva normal. EARS/NOSE/THROAT Mucous membranes moist, nares normal, lips/teeth normal uvula midline without oral pharyngeal erythema, exudate or swelling TMs normal bilaterally. No lymphangitis/lymphedema. HEAD/NECK normocephalic atraumatic, no facial trauma, neck is supple. RESPIRATORY respiratory effort normal, speaks in full sentences, no tripod position, no accessory muscle use. Lungs clear to auscultation without rhonchi, wheezes, rales CARDIAC Regular rate and rhythm, no edema. ABDOMINAL Soft, ND/NT. No evidence of fluid wave. No pulsatile masses on exam, rebound tenderness, Díaz sign or pain over Mcburney's point. MUSCLES/EXTREMITIES No abnormal range of motion, no swelling. Dressing to feet b/l. SKIN Warm, pink and dry. No rashes, dermatoses, petechiae or lesions. NEUROLOGICAL Speech is clear and appropriate. Normal level of consciousness. Gait and coordination are normal. 5/5 strength in all extremities. PSYCH Normal mood and affect. Judgement/competence is appropriate Discharge Plan Discharge Items [facility]position[facility] Reason For Visit: WATER BLISTERS, POSSIBLE OSTEOMYELITIS Discharge Diagnosis: diabetic foot ulcer Activity: Resume your previous activity Non-emergency contact: Primary Care Provider Call non-emergency contact if: you have any medication questions Follow-up/Referrals: SCI,Luc [Primary Care Provider] - Diet: Carb Consistent or DM2 Addtl Attending Provider Instructions: f/U with physician at correctional facility Pending Studies at Discharge: No Skilled Items Patient informed of condition?: Yes DNR: No Discharge Level of Care: Other Communicable Disease: No Discharge Prognosis: Stable Lines: None Urinary Catheter: No Medications and DC Order Prescriptions: New silver sulfadiazine [SSD] 1 % Cream 1 applic EXT DAILY Qty: 100 0RF Continued nortriptyline 25 mg Capsule 25 mg PO BID folic acid 1 mg Tablet 1 mg PO DAILY hydroxychloroquine 200 mg Tablet 200 mg PO DAILY docusate sodium 100 mg Tablet 100 mg PO BID PRN (Reason: Constipation) Enbrel 50 mg/mL (1 mL) Syringe 50 mg SUBCUT WK Rx Instructions: WEDNESDAYS atorvastatin 10 mg Tablet 10 mg PO DAILY amlodipine 10 mg Tablet 10 mg PO DAILY Rx Instructions: HOLD IF B/P IS <120/80 glucose 4 gram Tablet,Chewable See Rx Instructions .ROUTE .COMPLEX PRN (Reason: HYPOGLYCLEMIA) Rx Instructions: Glucose 3.75gm: Chew and swallow as needed for hypoglycemia albuterol sulfate 90 mcg/actuation Hfa Aerosol Inhaler 2 puff INHALATION QID PRN (Reason: Shortness Of Breath) sulfamethoxazole-trimethoprim [Bactrim DS] 800-160 mg Tablet 1 tab PO BID Rx Instructions: Start Date 10/30/24 - End Date 11/05/24 emollient Lubricant See Rx Instructions .ROUTE .COMPLEX Rx Instructions: Hydrating Petrol 42% ointment, apply 1 application topically twice daily furosemide 20 mg tablet 20 mg PO DAILY Novolin R FlexPen 100 unit/mL (3 mL) Insulin Pen 0 sliding scale dose SUBCUT UD PRN (Reason: Hyperglycemia) Rx Instructions: 201-250 = 2units; 251-300 = 4units; 301-350 = 6units; 351-400 = 8units; 401- 450 = 10units; 451-500 = 12units. >500 call cyanocobalamin (vitamin B-12) 500 mcg Tablet 500 mcg PO DAILY Novolin R FlexPen 100 unit/mL (3 mL) Insulin Pen 10 unit SUBCUT BIDWMEAL metformin 500 mg Tablet 500 mg PO BID valsartan 80 mg Tablet 80 mg PO DAILY Hold Instructions: Resume on 09/20/24. recheck BMP to ensure APRIL has resolved before resuming. Novolin N FlexPen 100 unit/mL (3 mL) Insulin Pen 14 unit SUBCUT QPM Qty: 0 0RF Novolin N FlexPen 100 unit/mL (3 mL) Insulin Pen 22 unit SUBCUT QAM Qty: 0 0RF Admission Data Admit Date/Time: 11/04/24 11:41 Attending Provider: Parvez Pérez Admit Provider: Dima Fitzpatrick Primary Care Provider: Luc BACA Other Providers: Farhan Rebolledo Hospital Stay Data Consultations 11/04/24 11:11 Consult Podiatry Routine Diagnostic Imagining Performed 11/04/24 11:42 US arterial duplex LE BI Stat Pending Results Patient Have Any Pending Studies at Discharge: No Discharge Instructions Given to Patient (Per Discharging Provider) f/U with physician at correctional facility Total Time Total Time Spent Total Time Spent (In Minutes): 50 Coding Level of Care Code 53402 INP/OBS DISCH >30 MIN Diagnoses Diabetic ulcer of other part of left foot associated with diabetes mellitus due to underlying condition, limited to breakdown of skin E08.621; L97.521 Diabetic foot ulcer location: other Diabetic ulcer of toe of right foot associated with diabetes mellitus due to underlying condition, with fat layer exposed E08.621; L97.512 Diabetic foot ulcer location: toe Type 2 diabetes mellitus with diabetic peripheral angiopathy and gangrene, without long-term current use of insulin E11.52 Diabetes mellitus type: type 2 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
== END 2024-11-06 15:01 ==
LOC: ED 08:38 → 3E 08:38 → SUATTDRO 11:41 → 3E 14:00

== ENCOUNTER 2024-11-13 07:40 | Inpatient (IN) ==
--- NOTE | 2024-11-13 08:47 | Emergency Department Note ---
Impression & Plan Osteomyelitis of foot, left, acute, Osteomyelitis of both feet, APRIL (acute kidney injury), Hyperglycemia ED Provider Note HISTORY OF PRESENT ILLNESS: Patient is a 69-year-old male presenting with bilateral foot wounds. Patient reports that his bilateral foot wounds that he was admitted for recently in the hospital have gotten worse. He states they progressed to becoming very necrotic and black in color. He states he is unable to walk secondary to the pain. He denies any drainage from the wounds. He states that he has "had them stop putting any ointments on it because they keep opening up when they do that." He denies any fevers. He denies any progression of the wounds or pain up his leg. ROS: as above PHYSICAL EXAM: Constitutional: Patient appears in no acute distress. HENT: Head: Normocephalic and atraumatic. Eyes: EOMI, PERRL Mouth/Throat: Mucous membranes moist. Neck: Trachea midline. Neck supple. Cardiovascular: RRR, No murmurs, rubs or gallops. Intact distal pulses. Pulmonary/Chest: No respiratory distress. Breath sounds clear and equal bilaterally. No wheezes or rales. No chest wall tenderness to palpation. Abdominal: Abdomen soft, no tenderness, rebound or guarding. Musculoskeletal: - RLE: First and second digit amputations present. Noted to have a scabbed over gangrenous portion over the incision. Noted to have a blister on the plantar surface of the foot that seems to also have been scabbed over. No active drainage. - LLE: Second digit amputation. Ulceration covering the third and fourth metatarsal heads with necrotic skin on the fourth and fifth metatarsals. Noted to have a large wound on the plantar lateral surface of the foot. No active drainage. Skin: Warm and dry. Psychiatric: Appropriate mood and affect for situation. Neurological: Alert and keenly responsive. CN II-XII grossly intact, moving all extremities equally and fully. MDM: - Vitals signs stable - History obtained via patient. History as above. - Chronic conditions affecting care: DM-2; HTN; HLD; CVA - Differential diagnoses include, but are not limited to: Osteomyelitis; necrotizing fasciitis; cellulitis; infected foot wound - Order placed for continuous cardiac monitoring. At this time, monitor showed rate of 69 bpm with normal sinus rhythm, per my interpretation. - External medical records reviewed. Discharge summary dated 11/06/2024 was reviewed. Patient was admitted that time for diabetic foot ulcer on the left foot associated with gangrene of the third toe. He is also noted to have right diabetic foot wound. - Laboratory workup interpreted by myself showed normal WBC; normal PT/INR; pseudohyponatremia (Na 129 - corrects with correction for hyperglycemia); APRIL (Cr 1.9); hyperglycemia (glucose 381) with normal anion gap; normal lactate; hypomagnesemia (Mg 1.6); normal procalcitonin; normal troponin - Xray left foot shows interval development of subtle osseous irregularity of the remaining portion of the left first proximal phalanx which could represent acute osteomyelitis. - Xray right foot shows subtle bony irregularity of the amputation line to the proximal phalanx of the great toe associated with surrounding soft tissue swelling which is concerning for early osteomyelitis. - Consulted with pharmacist, and given patient's previous wound cultures growing ESBL, Pseudomonas and Staph aureus, recommended IV meropenem and vancomycin for treatment of osteomyelitis. - IV meropenem and vancomycin ordered. - Patient given 2L NS for APRIL. He is sepsis fluid volume calculation based on ideal body weight is 2345.4 mL. - Discussion was had with top case assembler about patient's case and need for admission - Hospitalist consulted for admission - [facility] ASSESSMENT AND PLAN: Diagnosis: osteomyelitis of both feet; APRIL; hyperglycemia; hypomagnesemia Plan: admit Past Med/Surg History Problem List (Updated 11/13/24 @ 10:32 by Sarahy Coello MD) Hyperglycemia (Acute) APRIL (acute kidney injury) (Acute) Osteomyelitis of both feet (Acute) Osteomyelitis of foot, left, acute (Acute) Acute hyperglycemia (Acute) Degloving injury of foot (Acute) Loss of protective sensation of skin of deformed foot with peripheral vascular disease of foot Diabetic ulcer of left foot associated with diabetes mellitus due to underlying condition, limited to breakdown of skin Diabetic ulcer of right foot associated with diabetes mellitus due to underlying condition, with fat layer exposed Tear of skin of plantar aspect of foot Diabetes mellitus with peripheral angiopathy with gangrene Hypoglycemia (Acute) Failure of outpatient treatment (Acute) Osteomyelitis (Acute) CKD stage 3b, GFR 30-44 ml/min Ulcerative colitis H/O: CVA (cerebrovascular accident) Acute osteomyelitis of toe of right foot Vocal cord anomaly Rheumatoid arthritis Head injury (Acute) Orthostatic hypotension (Acute) Type 2 diabetes mellitus with polyneuropathy (Acute) Diabetic ulcer of left foot associated with diabetes mellitus due to underlying condition, with necrosis of bone Cellulitis of foot, left (Acute) Type 2 diabetes mellitus Right lower lobe pneumonia (Acute) SOB (shortness of breath) (Acute) Acute hyperkalemia (Acute) Orthostatic hypotension Recurrent syncope Surgical history unknown HTN (hypertension) (Chronic) Diabetes (Chronic) Hyperlipidemia (Chronic) CVA (cerebral infarction) (Acute 2016) Colitis Syncope (Acute 2016) Medical History APRIL (acute kidney injury) Diabetic foot ulcer CKD (chronic kidney disease) APRIL (acute kidney injury) Elevated troponin HHNC (hyperglycemic hyperosmolar nonketotic coma) Orthostatic hypotension (2016) Anemia Surgical History S/P craniotomy Family History Other Family history non-contributory Social History Smoking Status: Current every day smoker Tobacco Type: Cigarettes Age Started Using Tobacco: 13; packs per day: 0.5; Second Hand Exposure: No; Do You Dip or Chew Tobacco: No; Hx Alcohol Use: No Hx Substance Use: Yes Prescribed Medications: Marijuana Last Used Substance: Unknown Last Used Substance Other:: >5 years ago Substance Use Type Other:: K2 Preferred Language: Portuguese Communication Ability: Effective Balance Clerk Required: No Beliefs That Will Affect Care: None marital status: Current Living Situation: Other Current Living Situation Comment: [facility] current occupational status: unemployed Feels Safe at Home: Yes Assistive Devices: Glasses Allergies Allergies Allergy/AdvReac Type Severity Reaction Status Date / Time No Known Allergies Allergy Verified 11/04/24 12:25 Home Meds Home Medications Medication Instructions Recorded Confirmed docusate sodium 100 mg tablet 100 mg PO BID PRN Constipation 10/18/20 11/04/24 etanercept 50 mg/mL (1 mL) 50 mg subcut WK 10/18/20 11/04/24 subcutaneous syringe (Enbrel) folic acid 1 mg tablet 1 mg PO DAILY 10/18/20 11/04/24 hydroxychloroquine 200 mg tablet 200 mg PO DAILY 10/18/20 11/04/24 nortriptyline 25 mg capsule 25 mg PO BID 10/18/20 11/04/24 amlodipine 10 mg tablet 10 mg PO DAILY 10/05/22 11/04/24 atorvastatin 10 mg tablet 10 mg PO DAILY 10/05/22 11/04/24 albuterol sulfate 90 mcg/actuation 2 puff inhalation QID PRN 03/12/23 11/04/24 aerosol inhaler Shortness Of Breath glucose 4 gram chewable tablet See Rx Instructions .Route 03/12/23 11/04/24 .COMPLEX PRN HYPOGLYCLEMIA cyanocobalamin (vitamin B-12) 500 500 mcg PO DAILY 02/10/24 11/04/24 mcg tablet insulin regular human 100 unit/mL 0 sliding scale dose subcut UD PRN 02/10/24 11/04/24 (3 mL) subcutaneous pen (Novolin R Hyperglycemia FlexPen) insulin regular human 100 unit/mL 10 unit subcut BIDWMEAL 02/10/24 11/04/24 (3 mL) subcutaneous pen (Novolin R FlexPen) metformin 500 mg tablet 500 mg PO BID 09/09/24 11/04/24 valsartan 80 mg tablet 80 mg PO DAILY 09/09/24 11/04/24 emollient See Rx Instructions .Route .COMPLEX 11/04/24 11/04/24 furosemide 20 mg tablet 20 mg PO DAILY 11/04/24 11/04/24 sulfamethoxazole 800 1 tab PO BID 11/04/24 11/04/24 mg-trimethoprim 160 mg tablet (Bactrim DS) Previous Rx's Medication Instructions Recorded insulin NPH isoph U-100 human 100 14 unit (0.14 mL) subcut QPM #0 mL 09/18/24 unit/mL (3 mL) subcutaneous pen (Novolin N FlexPen) insulin NPH isoph U-100 human 100 22 unit (0.22 mL) subcut QAM #0 mL 09/18/24 unit/mL (3 mL) subcutaneous pen (Novolin N FlexPen) silver sulfadiazine 1 % topical 1 applic EXT DAILY #100 grams 11/06/24 cream (SSD) Results & Data (ED) Vital Signs Vital Signs - 24 hr 11/13/24 07:52 11/13/24 08:36 11/13/24 08:38 Temperature 36.5 C Temperature Source Oral Pulse Rate 75 66 Pulse Rate [Apical] 66 Pulse Rhythm Regular Pulse Strength Normal Respiratory Rate 18 17 17 Respiratory Effort / Characteristics Non-Labored Non-Labored Spontaneous Respiratory Depth Normal Normal Respiratory Pattern Regular Regular Blood Pressure 102/62 Blood Pressure [Left Arm] 120/80 Blood Pressure Mean 75 Blood Pressure Mean [Left Arm] 93 Blood Pressure Position Sitting Blood Pressure Position [Left Arm] Sitting Pulse Oximetry 98 97 97 Oxygen Delivery Method Room Air Room Air Room Air Sepsis Recent Fever Within 48 Hours No Sepsis New/Unexplained Change in Mental Status N/A Sepsis Action Taken by Nursing No Action Required 11/13/24 08:46 11/13/24 10:00 Temperature Temperature Source Pulse Rate 65 Pulse Rate [Apical] 69 Pulse Rhythm Pulse Strength Respiratory Rate 17 Respiratory Effort / Characteristics Non-Labored Spontaneous Respiratory Depth Normal Respiratory Pattern Blood Pressure Blood Pressure [Left Arm] 145/80 H Blood Pressure Mean Blood Pressure Mean [Left Arm] 101 Blood Pressure Position Blood Pressure Position [Left Arm] Pulse Oximetry 97 Oxygen Delivery Method Room Air Sepsis Recent Fever Within 48 Hours Sepsis New/Unexplained Change in Mental Status Sepsis Action Taken by Nursing Laboratory Data 11/13/24 08:29 11/13/24 08:29 Lab Results 11/13/24 Range/Units 08:29 WBC 7.82 (4.8-10.8) K/ul RBC 3.78 L (4.70-6.10) M/uL Hgb 11.0 L (14.0-18.0) g/dl Hct 33.0 L (42.0-52.0) % MCV 87.3 (80.0-100.0) fL MCH 29.1 (25.0-34.0) pg MCHC 33.3 (32.0-36.0) g/dL RDW Std Deviation 41.9 (36.4-46.3) fL RDW Coeff of Vidal 13.2 (11.5-14.5) % Plt Count 249 (130-400) K/uL MPV 10.7 (9.4-12.4) fL Immature Gran % (Auto) 0.3 % Neut % (Auto) 75.7 % Lymph % (Auto) 12.0 % [place] % (Auto) 8.3 % Eos % (Auto) 3.2 % Baso % (Auto) 0.5 % Neut # (Auto) 5.92 (1.40-6.50) K/uL Lymph # (Auto) 0.94 L (1.20-3.40) K/uL [place] # (Auto) 0.65 H (0.11-0.59) K/uL Eos # (Auto) 0.25 (0.00-0.50) K/uL Baso # (Auto) 0.04 (0.00-0.20) K/uL Immature Gran # (Auto) 0.02 (0.01-0.20) K/uL PT 11.2 (9.0-12.0) Seconds INR 1.0 (0.9-1.1) APTT 28 (21-31) Seconds PTT Ratio 1.0 Sodium 129 L (136-145) mmol/L Potassium 4.9 (3.5-5.1) mmol/L Chloride 99 (98-107) mmol/L Carbon Dioxide 26 (21-32) mmol/L Anion Gap 4 (3-11) BUN 36 H (6-23) mg/dl Creatinine 1.90 H (0.6-1.4) mg/dl Est Cr Clr Drug Dosing 41.3 ml/min eGFR 37.25 BUN/Creatinine Ratio 18.9 (10-20) Glucose 381 H* (70-99(Fasting)) mg/dl Lactate 1.4 (0.4-2.0) mmol/L Calcium 8.8 (8.6-10.3) mg/dl Magnesium 1.6 L (1.7-2.4) mg/dl Total Bilirubin 0.5 (0.2-1.0) mg/dl AST 13 (13-39) U/L ALT 7 (7-52) U/L Alkaline Phosphatase 63 (34-104) U/L Troponin I High Sens 5.1 (0-20) pg/ml Total Protein 7.9 (6.0-8.3) gm/dl Albumin 3.3 L (3.4-5.0) gm/dl Globulin 4.6 H (2.5-4.0) gm/dl Albumin/Globulin Ratio 0.7 L (0.9-2) Procalcitonin 0.07 (0-0.5) ng/ml Administered Medications Magnesium Sulfate/Dextrose (Magnesium Sulfate / D5w) 1 gm in 100 mls @ 100 mls/hr IV NOW STA Stop: 11/13/24 11:31 Last Admin: 11/13/24 11:01 Dose: 100 mls/hr Documented By: ARNULFO Discontinued Medications Sodium Chloride (Nss) 2,000 mls @ 999 mls/hr IV .Q2H1M ONE Stop: 11/13/24 11:15 Last Admin: 11/13/24 09:25 Dose: 999 mls/hr Documented By: AMS Imaging Data Radiologist's Impression: Foot X-Ray 11/13/24 09:43 XR foot RT 2V CLINICAL HISTORY: foot wounds COMPARISON: None FINDINGS: 2 views of the right foot demonstrate distal amputations of the first and second toes. There is a soft tissue swelling surrounding the distal end of the great toe. There is slight irregularity of the bony surface of the amputation line. There is pronounced arterial calcification. There are prominent calcaneal bone spurs. IMPRESSION: Subtle bony irregularity of the amputation line through the proximal phalanx of the great toe associated with surrounding soft tissue swelling. Early osteomyelitis not excluded. ACT 112: Negative or not required by law. Electronically signed by: Cece Lozano M.D. 11/13/2024 10:09 AM Foot X-Ray 11/13/24 09:43 XR foot LT 2V CLINICAL HISTORY: foot wounds COMPARISON: Left foot radiographs November 04, 2024. MRI of the left foot September 15, 2023. Left foot radiographs September 19, 2022. FINDINGS: There are postoperative findings consistent with amputation of the first and second toes. Subtle osseous irregularity of the remaining portion of the left first proximal phalanx has developed. Erosion of the distal tuft of the left fifth distal phalanx is unchanged. This is likely chronic. No acute fractures within the left foot are present. Tarsometatarsal joints are intact. There is extensive vascular calcification IMPRESSION: 1. Status post left first and second toe amputations. Interval development of subtle osseous irregularity of the remaining portion of the left first proximal phalanx. This may represent acute osteomyelitis. 2. No change in subtle erosion of the left fifth distal phalanx. This is likely chronic. 3. No acute fractures within the left foot. ACT 112: Negative or not required by law. Electronically signed by: Gerardo Patterson M.D. 11/13/2024 10:09 AM Discharge Plan Visit Data Chief Complaint: Foot Injury/Pain Stated Complaint: WORSENING NECROSIS OF BILATERAL FEET ED Provider: Sarahy Coello Discharge Problem: Osteomyelitis of foot, left, acute, Osteomyelitis of both feet, APRIL (acute kidney injury), Hyperglycemia Forms Stand Alone Forms: [facility] KitOrder Prescriptions Prescriptions: No Action nortriptyline 25 mg Capsule 25 mg PO BID folic acid 1 mg Tablet 1 mg PO DAILY hydroxychloroquine 200 mg Tablet 200 mg PO DAILY docusate sodium 100 mg Tablet 100 mg PO BID PRN (Reason: Constipation) Enbrel 50 mg/mL (1 mL) Syringe 50 mg SUBCUT WK Rx Instructions: WEDNESDAYS atorvastatin 10 mg Tablet 10 mg PO DAILY amlodipine 10 mg Tablet 10 mg PO DAILY Rx Instructions: HOLD IF B/P IS <120/80 glucose 4 gram Tablet,Chewable See Rx Instructions .ROUTE .COMPLEX PRN (Reason: HYPOGLYCLEMIA) Rx Instructions: Glucose 3.75gm: Chew and swallow as needed for hypoglycemia albuterol sulfate 90 mcg/actuation Hfa Aerosol Inhaler 2 puff INHALATION QID PRN (Reason: Shortness Of Breath) sulfamethoxazole-trimethoprim [Bactrim DS] 800-160 mg Tablet 1 tab PO BID Rx Instructions: Start Date 10/30/24 - End Date 11/05/24 emollient Lubricant See Rx Instructions .ROUTE .COMPLEX Rx Instructions: Hydrating Petrol 42% ointment, apply 1 application topically twice daily furosemide 20 mg tablet 20 mg PO DAILY silver sulfadiazine [SSD] 1 % Cream 1 applic EXT DAILY Qty: 100 0RF Novolin R FlexPen 100 unit/mL (3 mL) Insulin Pen 0 sliding scale dose SUBCUT UD PRN (Reason: Hyperglycemia) Rx Instructions: 201-250 = 2units; 251-300 = 4units; 301-350 = 6units; 351-400 = 8units; 401- 450 = 10units; 451-500 = 12units. >500 call cyanocobalamin (vitamin B-12) 500 mcg Tablet 500 mcg PO DAILY Novolin R FlexPen 100 unit/mL (3 mL) Insulin Pen 10 unit SUBCUT BIDWMEAL metformin 500 mg Tablet 500 mg PO BID valsartan 80 mg Tablet 80 mg PO DAILY Hold Instructions: Resume on 09/20/24. recheck BMP to ensure APRIL has resolved before resuming. Novolin N FlexPen 100 unit/mL (3 mL) Insulin Pen 14 unit SUBCUT QPM Qty: 0 0RF Novolin N FlexPen 100 unit/mL (3 mL) Insulin Pen 22 unit SUBCUT QAM Qty: 0 0RF Referrals Referrals: Luc BACA [Primary Care Provider] -
[2024-11-13 08:55] LABS: Partial Thromboplastin Time 28 Seconds (21-31); Prothrombin Time 11.2 Seconds (9.0-12.0)
[2024-11-13 09:07] LABS: Basophils # (auto) 0.04 K/uL (0.00-0.20); Basophils % (auto) 0.5 %; Eosinophils # (auto) 0.25 K/uL (0.00-0.50); Eosinophils % (auto) 3.2 %; Immature Granulocytes # (auto) 0.02 K/uL (0.01-0.20); Immature Granulocytes % (auto) 0.3 %; Lymphocytes # (auto) 0.94 K/uL (1.20-3.40); Mean Corpuscular Hemoglobin 29.1 pg (25.0-34.0); Mean Corpuscular Hgb Conc 33.3 g/dL (32.0-36.0); Mean Corpuscular Volume 87.3 fL (80.0-100.0); Mean Platelet Volume 10.7 fL (9.4-12.4); Monocytes # (auto) 0.65 K/uL (0.11-0.59); Monocytes % (auto) 8.3 %; Neutrophils # (auto) 5.92 K/uL (1.40-6.50); Neutrophils % (auto) 75.7 %; Platelet Count 249 K/uL (130-400); RDW Coefficient of Variation 13.2 % (11.5-14.5); RDW Standard Deviation 41.9 fL (36.4-46.3); Red Blood Count 3.78 M/uL (4.70-6.10); White Blood Count 7.82 K/ul (4.8-10.8)
[2024-11-13 09:11] LABS: Albumin Globulin Ratio 0.7 (0.9-2); Albumin Level 3.3 gm/dl (3.4-5.0); BUN Creatinine Ratio 18.9 (10-20); Bilirubin,Total 0.5 mg/dl (0.2-1.0); Calcium 8.8 mg/dl (8.6-10.3); Creatinine Clr Calc Pharmacy 41.3 ml/min; Globulin 4.6 gm/dl (2.5-4.0); Magnesium 1.6 mg/dl (1.7-2.4); Potassium 4.9 mmol/L (3.5-5.1); Total Protein 7.9 gm/dl (6.0-8.3)
[2024-11-13 09:12] LABS: Troponin I High Sensitivity 5.1 pg/ml (0-20)
[2024-11-13] MEDS: SODIUM CHLORIDE 0.9% 2,000 ML IV ONE (09:25)
--- NOTE | 2024-11-13 10:10 | XRay Report ---
XR foot LT 2V CLINICAL HISTORY: foot wounds COMPARISON: Left foot radiographs November 04, 2024. MRI of the left foot September 15, 2023. Left richard t radiographs September 19, 2022. FINDINGS: There are postoperative findings consistent with amputation of the first and second toes. Subtle osseous irregularity of the remaining portion of the left first proximal phalanx has developed . Erosion of the distal tuft of the left fifth distal phalanx is unchanged. This is likely chronic. N o acute fractures within the left foot are present. Tarsometatarsal joints are intact. There is exten sive vascular calcification IMPRESSION: 1. Status post left first and second toe amputations. Interval development of subtle osseous irregula rity of the remaining portion of the left first proximal phalanx. This may represent acute osteomyeli tis. 2. No change in subtle erosion of the left fifth distal phalanx. This is likely chronic. 3. No acute fractures within the left foot. ACT 112: Negative or not required by law. Electronically signed by: Gerardo Patterson M.D. 11/13/2024 10:09 AM
--- NOTE | 2024-11-13 10:11 | XRay Report ---
XR foot RT 2V CLINICAL HISTORY: foot wounds COMPARISON: None FINDINGS: 2 views of the right foot demonstrate distal amputations of the first and second toes. The re is a soft tissue swelling surrounding the distal end of the great toe. There is slight irregularit y of the bony surface of the amputation line. There is pronounced arterial calcification. There are p rominent calcaneal bone spurs. IMPRESSION: Subtle bony irregularity of the amputation line through the proximal phalanx of the great toe associated with surrounding soft tissue swelling. Early osteomyelitis not excluded. ACT 112: Negative or not required by law. Electronically signed by: Cece Lozano M.D. 11/13/2024 10:09 AM
[2024-11-13] MEDS ORDERED: VANCOMYCIN CONSULT ACTIVE PRN ×2 (10:25→12:49)
--- NOTE | 2024-11-13 10:49 | History & Physical Report ---
Date of Service November 13, 2024 Assessment & Plan (1) Diabetic ulcer of right foot associated with diabetes mellitus due to underlying condition, with fat layer exposed: (2) Diabetic ulcer of left foot associated with diabetes mellitus due to underlying condition, limited to breakdown of skin: (3) Hyperglycemia due to type 2 diabetes mellitus: (4) Hyponatremia: (5) Hypomagnesemia: Plan Patient is a 69-year-old male with past medical history of T2DM, hypertension, hyperlipidemia, history of CVA, CKD, rheumatoid arthritis, ulcerative colitis, diastolic congestive heart failure. He was recently hospitalized from 11/04 to 11/06 for bilateral diabetic foot ulcers, discharged with diagnosis of gangrene of left third toe. He was evaluated by podiatry during this admission who recommended daily dressing changes. patient presented to the ED due to worsening foot wounds and pain. He is being admitted for bilateral foot wounds needing possible debridement. #BL gangrenous foot wounds/diabetic foot wounds not septic on admission - no leukocytosis, afebrile, VSS, procal and lactate negative right foot XR 11/13 showed subtle bony irregularity, early osteomyelitis not excluded Left foot XR 11/13 showed interval development of subtle osseous irregularity, may represent acute osteomyelitis arterial Doppler 11/04 showed left dorsalis pedis artery with significant stenosis; vascular surgery consulted - lipid panel 09/10/24 triglycerides 55, total cholesterol 131, LDL 63, HDL 57 - Continue atorvastatin 10 Mg daily previous cultures have grown ESBL E. coli, MRSA, Pseudomonas aeruginosa appears as though patient completed course of Bactrim at [facility] 10/30-11/05 pharmacy recommended meropenem and vancomycin - pharmacy following - Trend renal function with vancomycin and history of CKD podiatry consulted, Dr. Rebolledo - assess for possible OM NPO after midnight - possible debridement 11/14 AM daily wound care - Silvadene and dry sterile dressing followed by lightly applied nadia bandage to level of distal knee consult wound care repeat wound cultures ordered #t2dm uncontrolled diabetes contributing to above elevated to 518 during recent admission 381 on arrival today - patient reports has had AM insulin - repeat BSG down to 168 on admission hold metformin basal insulin 20 U BID SSI with target BSG range 110-140mg/dL, CF 20, carb ratio 3 A1C 8.7 11/05/24 pharmacy glycemic consult #electrolyte abnormalities Sodium 129 (baseline 131), Magnesium 1.6 2/2 poor nutrition? recent TSH 08/17/24 WNL denies fluid losses - n/v/d 1G IV mag ordered Trend BMP and mag Chronic stable diagnoses: CKD - stable, at baseline, creatinine 1.9 on admission; monitor with vancomycin use Anemia - Hgb 11.0, chronic, continue folic acid and B12 hypertension - continue amlodipine and valsartan HLD - continue atorvastatin Diastolic CHF - EF 60%, hold Lasix in the setting of acute infection RA - hold hydroxychloroquine in setting of acute infection UC - Enbrel every Monday, hold/defer while inpatient H/o CVA VTE ppx: SCDs, low risk and possible surgical management Diet: T2DM Dispo: med surg Admission and Anticipated Discharge Date Admission Date: 11/13/24 History of Present Illness Chief Complaint: foot pain Primary Care Provider: PHUONG Calle Patient is a 69-year-old male with past medical history of T2DM, hypertension, hyperlipidemia, history of CVA, CKD, rheumatoid arthritis, ulcerative colitis, diastolic congestive heart failure. He was recently hospitalized from 11/04 to 11/06 for bilateral diabetic foot ulcers, discharged with diagnosis of gangrene of left third toe. He was evaluated by podiatry during this admission who recommended daily dressing changes. patient presented to the ED due to worsening foot wounds and pain. He is being admitted for bilateral foot wounds needing possible debridement. Patient seen at bedside with alf guards present. He stated his foot wounds have worsened and he has been unable to walk. He frequently lays down due to this. He stated that there is reddish drainage, denies any purulent white drainage from the wounds. He denies any fevers or chills. He does endorse bilateral foot numbness, however chronic. He denies chest pain, shortness of breath, nausea, vomiting. Has had stable p.o. intake. He denies nicotine use. He stated he did get his morning insulin, presented with a glucose of 381. He got all of his other morning medications today. He wishes to be DNR/DNI. Reached out to manager [facility], Dr. Rebolledo. He will evaluate patient this afternoon and plan for possible debridement 2/20 a.m. if warranted. Allergies Allergy/AdvReac Type Severity Reaction Status Date / Time No Known Allergies Allergy Verified 11/04/24 12:25 Home Medications Medication Instructions Recorded Confirmed Type docusate sodium 100 mg tablet 100 mg PO BID PRN Constipation 10/18/20 11/13/24 History etanercept 50 mg/mL (1 mL) 50 mg subcut WK 10/18/20 11/13/24 History subcutaneous syringe (Enbrel) folic acid 1 mg tablet 1 mg PO DAILY 10/18/20 11/13/24 History hydroxychloroquine 200 mg tablet 200 mg PO DAILY 10/18/20 11/13/24 History nortriptyline 25 mg capsule 25 mg PO BID 10/18/20 11/13/24 History amlodipine 10 mg tablet 10 mg PO DAILY 10/05/22 11/13/24 History atorvastatin 10 mg tablet 10 mg PO DAILY 10/05/22 11/13/24 History albuterol sulfate 90 mcg/actuation 2 puff inhalation QID PRN 03/12/23 11/13/24 History aerosol inhaler Shortness Of Breath glucose 4 gram chewable tablet See Rx Instructions .Route 03/12/23 11/13/24 History .COMPLEX PRN HYPOGLYCLEMIA cyanocobalamin (vitamin B-12) 500 500 mcg PO DAILY 02/10/24 11/13/24 History mcg tablet insulin regular human 100 unit/mL 0 sliding scale dose subcut UD PRN 02/10/24 11/13/24 History (3 mL) subcutaneous pen (Novolin R Hyperglycemia FlexPen) insulin regular human 100 unit/mL 10 unit subcut BIDWMEAL 02/10/24 11/13/24 History (3 mL) subcutaneous pen (Novolin R FlexPen) metformin 500 mg tablet 500 mg PO BID 09/09/24 11/13/24 History valsartan 80 mg tablet 80 mg PO DAILY 09/09/24 11/13/24 History insulin NPH isoph U-100 human 100 14 unit (0.14 mL) subcut QPM #0 mL 09/18/24 11/13/24 Rx unit/mL (3 mL) subcutaneous pen (Novolin N FlexPen) insulin NPH isoph U-100 human 100 22 unit (0.22 mL) subcut QAM #0 mL 09/18/24 11/13/24 Rx unit/mL (3 mL) subcutaneous pen (Novolin N FlexPen) emollient See Rx Instructions .Route .COMPLEX 11/04/24 11/13/24 History furosemide 20 mg tablet 20 mg PO DAILY 11/04/24 11/13/24 History silver sulfadiazine 1 % topical 1 applic EXT DAILY #100 grams 11/06/24 11/13/24 Rx cream (SSD) Past Med/Surg History Problem List (Updated 11/13/24 @ 23:37 by Farhan Rebolledo DPM) Diabetic ulcer of left foot with fat layer exposed Diabetic ulcer of right foot with fat layer exposed Hypomagnesemia Hyponatremia Hyperglycemia due to type 2 diabetes mellitus Hyperglycemia (Acute) APRIL (acute kidney injury) (Acute) Osteomyelitis of both feet (Acute) Osteomyelitis of foot, left, acute (Acute) Acute hyperglycemia (Acute) Degloving injury of foot (Acute) Loss of protective sensation of skin of deformed foot with peripheral vascular disease of foot Diabetic ulcer of left foot associated with diabetes mellitus due to underlying condition, limited to breakdown of skin Diabetic ulcer of right foot associated with diabetes mellitus due to underlying condition, with fat layer exposed Tear of skin of plantar aspect of foot Diabetes mellitus with peripheral angiopathy with gangrene Hypoglycemia (Acute) Failure of outpatient treatment (Acute) Osteomyelitis (Acute) CKD stage 3b, GFR 30-44 ml/min Ulcerative colitis H/O: CVA (cerebrovascular accident) Acute osteomyelitis of toe of right foot Vocal cord anomaly Rheumatoid arthritis Head injury (Acute) Orthostatic hypotension (Acute) Type 2 diabetes mellitus with polyneuropathy (Acute) Diabetic ulcer of left foot associated with diabetes mellitus due to underlying condition, with necrosis of bone Cellulitis of foot, left (Acute) Type 2 diabetes mellitus Right lower lobe pneumonia (Acute) SOB (shortness of breath) (Acute) Acute hyperkalemia (Acute) Orthostatic hypotension Recurrent syncope Surgical history unknown HTN (hypertension) (Chronic) Diabetes (Chronic) Hyperlipidemia (Chronic) CVA (cerebral infarction) (Acute 2016) Colitis Syncope (Acute 2016) Medical History APRIL (acute kidney injury) Diabetic foot ulcer CKD (chronic kidney disease) APRIL (acute kidney injury) Elevated troponin HHNC (hyperglycemic hyperosmolar nonketotic coma) Orthostatic hypotension (2016) Anemia Surgical History S/P craniotomy Family History Other Family history non-contributory Social History Smoking Status: Current every day smoker Tobacco Type: Cigarettes Age Started Using Tobacco: 13; packs per day: 0.5; Second Hand Exposure: No; Do You Dip or Chew Tobacco: No; Hx Alcohol Use: No Hx Substance Use: Yes Prescribed Medications: Marijuana Last Used Substance: Unknown Last Used Substance Other:: >5 years ago Substance Use Type Other:: K2 Preferred Language: Icelandic Communication Ability: Effective Suture Polisher Required: No Beliefs That Will Affect Care: None marital status: Current Living Situation: Other Current Living Situation Comment: [employer] current occupational status: unemployed Feels Safe at Home: Yes Assistive Devices: Glasses Review of Systems 2 Review of Systems: see HPI Physical Exam 2 Physical Exam: The patient is awake, alert and oriented 3, well developed and well nourished, normocephalic and atraumatic, in no acute distress. Non-toxic appearing. HEENT- EOMI, mucous membranes dry. Hearing grossly intact. Heart-normal S1 and S2. No murmurs, rubs or gallops. Lungs-clear bilaterally, no respiratory distress, no accessory muscle use. Abdomen-normal bowel sounds and soft. No ascites noted. Non-tender. Extremities- no clubbing, cyanosis, or edema. See images below. Rheumatologic-normal range of motion. Psychiatric-normal affect. Skin: Results & Data Results & Data Vital Signs (Past 12 Hours) Vital Signs Temp Pulse Pulse Resp BP BP Pulse Ox 11/13/24 08:46 65 11/13/24 08:38 66 17 97 11/13/24 08:36 66 17 120/80 97 11/13/24 07:52 36.5 C 75 18 102/62 98 O2 Del Method 11/13/24 08:46 11/13/24 08:38 Room Air 11/13/24 08:36 Room Air 11/13/24 07:52 Room Air Laboratory Results Reviewed CBC, PT/INR, CMP, Pro-Mike, troponin, mag UA ordered Diagnostic Findings Reviewed bilateral foot XR Medications Administered ED1G IV magnesium, 2L NSS bolus, meropenem plus vancomycin ECG Additional Comments: ordered Code Status & VTE Plan Code Status dnr/dni VTE Prophylaxis Plan VTE Prophylaxis will be ordered: Yes Supervising Physician Co-Signing Physician Notes I personally saw and examined the patient. I independently reviewed the labs, EKG, imaging, problem list, medication list, past medical history and family history. I verified all hinds points and agree with Nancy Titus PA-C with the following exceptions and/or additions: 69-year-old male presents to the ER with worsening foot wounds after recent open blisters. O/E HS RRR, no murmurs, Chest CTAB. Eschar forming centrally on multiple wounds however has purulent drainage under right foot lateral to main eschar with multiple areas of non viable skin on 3-5th toes right foot and 3rd toe left foot A/P Diabetic ulcer with non viable skin and purulent drainage blister - consult podiatry for consideration of incision and drainage. Empiric antibiotics with meropenem and vancomycin given prior cultures. PG Care Time/CCT Total # of Minutes Spent Total Time Spent with Patient: Total time spent is greater than 50% in coordination of care (as documented) at patient's floor/unit and/or counseling patient: Coding Level of Care Code 58515 INT INP/OBS CARE 375MIN Diagnoses Diabetic ulcer of toe of right foot associated with diabetes mellitus due to underlying condition, with fat layer exposed E08.621; L97.512 Diabetic foot ulcer location: toe Diabetic ulcer of other part of left foot associated with diabetes mellitus due to underlying condition, limited to breakdown of skin E08.621; L97.521 Diabetic foot ulcer location: other Hyperglycemia due to type 2 diabetes mellitus E11.65 Hyponatremia E87.1 Hypomagnesemia E83.42 (1) Diabetic ulcer of right foot associated with diabetes mellitus due to underlying condition, with fat layer exposed Diabetic foot ulcer location: toe Qualified Code(s): E08.621 - Diabetes mellitus due to underlying condition with foot ulcer; L97.512 - Non-pressure chronic ulcer of other part of right foot with fat layer exposed (2) Diabetic ulcer of left foot associated with diabetes mellitus due to underlying condition, limited to breakdown of skin Diabetic foot ulcer location: other Qualified Code(s): E08.621 - Diabetes mellitus due to underlying condition with foot ulcer; L97.521 - Non-pressure chronic ulcer of other part of left foot limited to breakdown of skin
[2024-11-13] MEDS: MAGNESIUM SULFATE / D5W 1 GM/100 ML BAG IV STA (11:01)
[2024-11-13] MEDS: MEROPENEM 500 MG in SYRINGE 0 ML IV SCH ×2 (11:33→17:52)
[2024-11-13 11:34] LABS: Appearance Urine Clear (Clear); Bacteria Urine Automated None Seen (None Seen); Bilirubin Urine Negative (Negative); Blood Urine Negative (Negative); Cast Urine Automated 0-2 /lpf (0-2); Color Urine Yellow; Epithelial Cell Urine Auto 0-2 /hpf (0-2); Glucose Urine UA 3+ (Negative); Ketones Urine Trace (Negative); Leukocyte Esterase Urine Negative (Negative); Nitrite Urine Negative (Negative); Protein Urine Trace (Negative); RBC Urine Automated 0-2 /hpf (0-2); Specific Gravity Urine 1.013 (1.000-1.030); Urobilinogen Urine Negative (Negative); WBC Urine Automated 0-5 /hpf (0-5)
[2024-11-13] MEDS: VANCOMYCIN HCL 1,750 MG in SODIUM CHLORIDE 0.9% 500 ML IV ONE (11:45)
[2024-11-13 12:48] LABS: Influenza A virus by PCR Negative (Neg); Influenza B virus by PCR Negative (Neg); RSV by PCR Negative (Neg); SARS CoV2 RNA(COVID-19) Ceph NEGATIVE (Negative)
[2024-11-13] MEDS ORDERED: ACETAMINOPHEN 325 MG TAB PO PRN (12:49)
[2024-11-13] MEDS ORDERED: ONDANSETRON INJ 2 MG/ML 2 ML VIAL IV PRN (12:49)
[2024-11-13] MEDS ORDERED: DOCUSATE SODIUM 100 MG CAP PO PRN (12:49)
[2024-11-13] MEDS ORDERED: DEXTROSE 50% 50 ML SYRINGE IV PRN (12:49)
[2024-11-13] MEDS ORDERED: PHARMACY GLYCEMIC MGMT CONSULT PRN (12:49)
[2024-11-13] MEDS ORDERED: ALBUTEROL HFA 8 GM INHALER INH PRN (12:49)
[2024-11-13] MEDS ORDERED: GLUCAGON FOR INJ 1 MG VIAL SQ PRN (12:49)
[2024-11-13] MEDS ORDERED: GLUCOSE 40% GEL 15 GM TUBE PO PRN (12:49)
[2024-11-13] MEDS ORDERED: GLUCOSE 10 TAB/TUBE PO PRN (12:49)
--- NOTE | 2024-11-13 13:51 | Pharmacy Report ---
Pharmacy PK ABX Note - Date of Service November 13, 2024 - Assessment and Plan Assessment 69 year old M receiving vancomycin/meropenem for treatment of acute toe osteomyelitis. Pertinent microbiologic data includes: previous hx of ESBL E. coli, MRSA, Pseudomonas aeruginosa, anaerobes. Foot x-rays with evidence of osteo. Vascular, podiatry, wound care consulted. Patient with CKD, appears to be close to baseline . Plan Vancomycin * Loading dose: 1750 mg IV x 1 * Maintenance dose: 1000 mg IV every 18 hours * Regimen is predicted to achieve target AUC/TESSY of 400-600 mg/L.hr * Random level ordered for 11/15 with AM labs Pharmacy will continue to follow and will adjust dose/frequency as necessary. Thank you. Pharmacy has transitioned to AUC monitoring for vancomycin. AUC/TESSY is the preferred PK/PD target and is associated with decreased risk of nephrotoxicity compared to traditional trough targets.
--- NOTE | 2024-11-13 14:25 | Podiatry Consultation ---
Date of Consultation November 13, 2024 Assessment & Plan (1) Diabetic ulcer of right foot with fat layer exposed: Diabetic foot ulcer location: unspecified part of foot Diabetes mellitus type: type 2 Qualified Code(s): E11.621 - Type 2 diabetes mellitus with foot ulcer; L97.512 - Non-pressure chronic ulcer of other part of right foot with fat layer exposed (2) Diabetic ulcer of left foot with fat layer exposed: Diabetic foot ulcer location: unspecified part of foot Diabetes mellitus type: type 2 Qualified Code(s): E11.621 - Type 2 diabetes mellitus with foot ulcer; L97.522 - Non-pressure chronic ulcer of other part of left foot with fat layer exposed (3) Diabetes mellitus with peripheral angiopathy with gangrene: Diabetes mellitus type: type 2 Diabetes mellitus mcfp insulin use: without buttermaker helper use Qualified Code(s): E11.52 - Type 2 diabetes mellitus with diabetic peripheral angiopathy with gangrene (4) Type 2 diabetes mellitus with polyneuropathy: Plan Diabetic ulceration bilateral forefoot Superficial ulcerations to the bilateral forefoot which were previously healthy granular dermal wound beds have formed gangrenous eschar centrally. Eschar stable with no purulent drainage. No indication for debridement at this time. Recommend once daily dressing changes with Betadine wet to dry dressing. Okay to weight-bear in postop shoe bilateral. Minimize weightbearing whenever possible. -Bilateral foot x-rays reviewed. Findings concerning for possible osteomyelitis. Clinically there is no sign of deep wound extension to these locations or exposed bone at this time. Though osteomyelitis of the proximal phalanx of the bilateral hallux remnant is a possibility patient's current wounds are the result of repetitive stress and pressure on a poorly protected neuropathic foot I believe it is unlikely that the 2 are related. Recommend continued close monitoring, offloading and wound care. -There is scant malodorous drainage which is captured below superficial roof blister on the right foot. Recommend continued antibiotic therapy while in house however should be reasonable to discharge on p.o. antibiotics. -No plan for podiatric surgical intervention at this time as eschars are dry and relatively stable without fluctuance or deep extension. Discharge planning: Lengthy discussion with patient regarding ongoing care following discharge. Explained to patient that all of his ulcerations have developed and areas of high pressure from weightbearing and repetitive trauma. -Patient needs to wear postop shoes at all times while ambulating and should continue to minimize weightbearing whenever possible to reduce stress to the injured areas. -Foot needs to be kept clean and dry at all times with the exception of application of Betadine. -Patient will require once daily application of Betadine wet-to-dry dressing to all areas. -Would be optimal for this patient to follow-up in the diabetic foot clinic to be fit with appropriate shoe gear moving forward given history of multiple digital ulcerations and current poorly healing ulcerations. -Patient would benefit from close follow-up in the wound center at least every 2 to 3 weeks for ongoing monitoring of bilateral foot wounds. -Plan to reach out to the medical contact at the care home tomorrow morning to discuss patient's ongoing care. Would request he remain in the [facility] and will discuss recommendations above. Thank you for consulting podiatry date in the care of this patient. Will continue to follow patient throughout his hospital stay and make recommendations for follow-up at discharge. History of Present Illness Reason for Consultation: Gangrenous foot wounds bilateral Attending Physician: Dima Fitzpatrick MD History of Present Illness Kwaku is a 69-year-old male recently admitted to [facility] with bilateral foot wounds. Past medical history significant for type 2 diabetes with diabetic peripheral neuropathy, history of first and second digit amputation for management of osteomyelitis secondary to diabetic foot wounds bilateral. Left first and second digit amputation 2022. Right first and second digit amputation 2023. Patient is inmate at [place] since 2002. During the course of stay he had no signs of local soft tissue infection wounds were treated topically with Silvadene and dry sterile dressing once daily. Attempt was made to get him fit with bilateral postop shoes to help prevent further stress to the feet with weightbearing. Unfortunately patient was not able to be fit with postop shoes during his previous hospitalization with guards having concern over the position of postop shoes while in care home. He was discharged and returned to to [facility] on 11/06/2024. Patient reports after returning to care home he was held in the [facility] and dressings were changed to the bilateral foot daily. Reports increased discoloration to his wounds over the past several days with increased pain. Denies nausea vomiting fever chills. Allergies Allergy/AdvReac Type Severity Reaction Status Date / Time No Known Allergies Allergy Verified 11/04/24 12:25 Home Medications Medication Instructions Recorded Confirmed Type docusate sodium 100 mg tablet 100 mg PO BID PRN Constipation 10/18/20 11/13/24 History etanercept 50 mg/mL (1 mL) 50 mg subcut WK 10/18/20 11/13/24 History subcutaneous syringe (Enbrel) folic acid 1 mg tablet 1 mg PO DAILY 10/18/20 11/13/24 History hydroxychloroquine 200 mg tablet 200 mg PO DAILY 10/18/20 11/13/24 History nortriptyline 25 mg capsule 25 mg PO BID 10/18/20 11/13/24 History amlodipine 10 mg tablet 10 mg PO DAILY 10/05/22 11/13/24 History atorvastatin 10 mg tablet 10 mg PO DAILY 10/05/22 11/13/24 History albuterol sulfate 90 mcg/actuation 2 puff inhalation QID PRN 03/12/23 11/13/24 History aerosol inhaler Shortness Of Breath glucose 4 gram chewable tablet See Rx Instructions .Route 03/12/23 11/13/24 History .COMPLEX PRN HYPOGLYCLEMIA cyanocobalamin (vitamin B-12) 500 500 mcg PO DAILY 02/10/24 11/13/24 History mcg tablet insulin regular human 100 unit/mL 0 sliding scale dose subcut UD PRN 02/10/24 11/13/24 History (3 mL) subcutaneous pen (Novolin R Hyperglycemia FlexPen) insulin regular human 100 unit/mL 10 unit subcut BIDWMEAL 02/10/24 11/13/24 History (3 mL) subcutaneous pen (Novolin R FlexPen) metformin 500 mg tablet 500 mg PO BID 09/09/24 11/13/24 History valsartan 80 mg tablet 80 mg PO DAILY 09/09/24 11/13/24 History insulin NPH isoph U-100 human 100 14 unit (0.14 mL) subcut QPM #0 mL 09/18/24 11/13/24 Rx unit/mL (3 mL) subcutaneous pen (Novolin N FlexPen) insulin NPH isoph U-100 human 100 22 unit (0.22 mL) subcut QAM #0 mL 09/18/24 11/13/24 Rx unit/mL (3 mL) subcutaneous pen (Novolin N FlexPen) emollient See Rx Instructions .Route .COMPLEX 11/04/24 11/13/24 History furosemide 20 mg tablet 20 mg PO DAILY 11/04/24 11/13/24 History silver sulfadiazine 1 % topical 1 applic EXT DAILY #100 grams 11/06/24 11/13/24 Rx cream (SSD) Patient History Medical History APRIL (acute kidney injury) Diabetic foot ulcer CKD (chronic kidney disease) APRIL (acute kidney injury) Elevated troponin HHNC (hyperglycemic hyperosmolar nonketotic coma) Orthostatic hypotension (2016) Anemia Surgical History S/P craniotomy Family History Other Family history non-contributory Social History Smoking Status: Current every day smoker Tobacco Type: Cigarettes Age Started Using Tobacco: 13; packs per day: 0.5; Second Hand Exposure: No; Do You Dip or Chew Tobacco: No; Hx Alcohol Use: No Hx Substance Use: Yes Prescribed Medications: Marijuana Last Used Substance: Unknown Last Used Substance Other:: >5 years ago Substance Use Type Other:: K2 Preferred Language: Slovenian Communication Ability: Effective Facilities Specialist Required: No Beliefs That Will Affect Care: None marital status: Current Living Situation: Other Current Living Situation Comment: [facility] current occupational status: unemployed Feels Safe at Home: Yes Assistive Devices: Glasses Review of Systems Review of Systems: Patient denies nausea vomiting fever chills. Denies shortness of breath or chest pain. He reports increased pain to the bilateral forefoot and deterioration of wounds. All other systems negative unless stated in HPI. Physical Exam Physical Exam: Const: Appears well developed and well nourished. No signs of acute distress present. CV: Extremities: No cyanosis or edema. Capillary refill time is less than 2 seconds all digits of the bilateral foot. Posterior tibial and dorsalis pedis pulses are palpable bilateral. Lymph: No palpable or visible regional lymphadenopathy. Neuro: Loss protective sensation to the bilateral foot. Psych: Mood/Affect: Mood is normal. Affect is normal. Cognition: Orientation is intact to person, place and time. Focused lower extremity musculoskeletal exam: Leg: No pain with compression of the calf muscle. Ankles: Normal to inspection and palpation. No swelling bilaterally. No tenderness bilaterally. Motor strength is intact. Range of motion pain-free and unlimited. Left foot: Status post second digit amputation and partial hallux amputation. Ulceration at the distal hallux with dry gangrene to the wound bed. Limited soft tissue coverage over the hallux remnant however there is no exposed bone or probe to bone at this time. No periwound erythema or edema. No active drainage. Is a large ovoid wound 7 fourth and fifth metatarsal head with stable eschar centrally. No fluctuance. No active drainage. No periwound erythema or edema. Gangrenous changes to the distal tip of the left third toe with small underlying fluid collection. Wound does not probe to bone. Right foot: Status post partial first and second digit amputation. There is breakdown of the soft tissue of the plantar forefoot at the distal aspect of the third fourth and fifth digits and subfirst and second metatarsal head as well as the plantar aspect of the hallux. Wounds with started with blister formation have all deroofed with the exception of the area subsecond metatarsal head which remains in place with underlying seropurulent drainage and mild malodor. Areas flushed and has a relatively healthy appearing granular wound bed. Remainder of the open wounds have early eschar formation centrally. No lymphangitis or streaking. Results & Data Vital Signs (Past 12 Hours) Vital Signs Temp Pulse Pulse Resp BP BP Pulse Ox 11/13/24 12:49 70 17 157/92 H 99 11/13/24 12:45 70 11/13/24 12:00 69 15 150/85 H 100 11/13/24 10:00 69 17 145/80 H 97 11/13/24 08:46 65 11/13/24 08:38 66 17 97 11/13/24 08:36 66 17 120/80 97 11/13/24 07:52 36.5 C 75 18 102/62 98 O2 Del Method 11/13/24 12:49 Room Air 11/13/24 12:45 11/13/24 12:00 Room Air 11/13/24 10:00 Room Air 11/13/24 08:46 11/13/24 08:38 Room Air 11/13/24 08:36 Room Air 11/13/24 07:52 Room Air Laboratory Results White blood count 7.82, glucose 381, POC glucose 168, lactate 1.4 Diagnostic Findings Lower extremity arterial duplex ultrasound bilateral 11/04/2024: FINDINGS: RIGHT LOWER EXTREMITY: Atherosclerosis. Mostly triphasic waveforms noted. No high-grade stenosis or arterial occlusion. LEFT LOWER EXTREMITY: Atherosclerosis. Triphasic waveforms are noted extending from the common femoral to the popliteal artery. Biphasic waveforms within the arteries of the lower leg. No arterial occlusion. Elevated peak systolic velocities within dorsalis pedis artery measure up to 236 cm/s distally. IMPRESSION: 1. No arterial occlusion. 2. Elevated peak systolic velocities in the left dorsalis pedis artery compatible with hemodynamically significant stenosis. X-ray 3 views right foot 11/13/2024: IMPRESSION: Subtle bony irregularity of the amputation line through the proximal phalanx of the great toe associated with surrounding soft tissue swelling. Early osteomyelitis not excluded. X-rays 3 views left foot 11/13/2024: IMPRESSION: 1. Status post left first and second toe amputations. Interval development of subtle osseous irregularity of the remaining portion of the left first proximal phalanx. This may represent acute osteomyelitis. 2. No change in subtle erosion of the left fifth distal phalanx. This is likely chronic. 3. No acute fractures within the left foot. PG Care Time/CCT Total # of Minutes Spent Total Time Spent with Patient: Total time spent is greater than 50% in coordination of care (as documented) at patient's floor/unit and/or counseling patient: Coding [place] [address] INT INP/OBS CARE 2MIN Patient Type Established Diagnoses Diabetic ulcer of right foot associated with type 2 diabetes mellitus, with fat layer exposed, unspecified part of foot E11.621; L97.512 Diabetic foot ulcer location: unspecified part of foot Diabetes mellitus type: type 2 Diabetic ulcer of left foot associated with type 2 diabetes mellitus, with fat layer exposed, unspecified part of foot E11.621; L97.522 Diabetic foot ulcer location: unspecified part of foot Diabetes mellitus type: type 2 Type 2 diabetes mellitus with diabetic peripheral angiopathy and gangrene, without long-term current use of insulin E11.52 Diabetes mellitus type: type 2 Diabetes mellitus mcfp insulin use: without mcfp use Type 2 diabetes mellitus with polyneuropathy E11.42
[2024-11-13] MEDS: INSULIN ASPART PER UNIT CHARGE SC SCH (14:26)
[2024-11-13] MEDS: LANTUS PER UNIT CHARGE SQ ONE (14:26)
--- NOTE | 2024-11-13 14:43 | Pharmacy Report ---
Pharmacy Glycemic Short Note 2 - Date of Service November 13, 2024 - Glycemic Short BSG Results (Last 24 hours): 11/13/24 11/13/24 08:29 11:43 Glucose 381 H* POC Glucose 168 H OUTPATIENT ANTIDIABETIC REGIMEN: * NPH 22 units SC qAM, 14 units SC qPM * Novolin R 10 units SC BID + SSI HbA1c: 8.7% (11/05/24) ASSESSMENT: * FS is a 69 year old male with T2DM who presents with worsening bilateral diabetic foot wounds * Patient known to pharmacy glycemic service due to multiple recent hospitalizations/consults * Diet ordered at this time, NPO after midnight * Podiatry and vascular surgery consulted * Will utilize past inpatient glycemic data to guide initial insulin dosing * RN confirmed with patient that only short-acting insulin was given prior to presentation (no NPH administered) * Given uncertainty with PO status, will utilize basal in form of Lantus for now (consider switch to NPH once stable) PLAN FOR INPATIENT GLYCEMIC CONTROL: * Hold outpatient oral diabetes medications * Basal insulin * Lantus 20 units SC x 1 * Reassess in AM * Bolus insulin * NovoLog per scale ACHS or Q6hrs while NPO * Goal Range: Low 110 mg/dL - High 140 mg/dL * Correction Factor: 30 mg/dL/unit * Nutritional / Prandial insulin per carb ratio of 1 unit per 5 grams CHO consumed
[2024-11-13] MEDS: CARBOHYDRATES FOR HYPOGLYCEMIA PO PRN (16:36)
[2024-11-13] MEDS: NORTRIPTYLINE HCL 25 MG CAP PO SCH (20:23)
[2024-11-13] MEDS ORDERED: VANCOMYCIN HCL 1,500 MG in SODIUM CHLORIDE 0.9% 500 ML IV SCH (21:00)
[2024-11-14] MEDS: VANCOMYCIN HCL 1,000 MG/270 ML BAG IV SCH (00:22)
[2024-11-14 07:14] LABS: Albumin Globulin Ratio 0.7 (0.9-2); Albumin Level 2.9 gm/dl (3.4-5.0); BUN Creatinine Ratio 17.4 (10-20); Bilirubin,Total 0.4 mg/dl (0.2-1.0); Calcium 8.4 mg/dl (8.6-10.3); Creatinine Clr Calc Pharmacy 59.4 ml/min; Globulin 4.3 gm/dl (2.5-4.0); Magnesium 1.5 mg/dl (1.7-2.4); Potassium 4.6 mmol/L (3.5-5.1); Total Protein 7.2 gm/dl (6.0-8.3)
[2024-11-14 07:21] LABS: Hematocrit (blood only) 31.7 % (42.0-52.0); Hemoglobin 10.7 g/dl (14.0-18.0); Mean Corpuscular Hemoglobin 28.5 pg (25.0-34.0); Mean Corpuscular Hgb Conc 33.8 g/dL (32.0-36.0); Mean Corpuscular Volume 84.5 fL (80.0-100.0); Mean Platelet Volume 9.8 fL (9.4-12.4); Platelet Count 247 K/uL (130-400); RDW Coefficient of Variation 13.2 % (11.5-14.5); RDW Standard Deviation 40.7 fL (36.4-46.3); Red Blood Count 3.75 M/uL (4.70-6.10); White Blood Count 5.68 K/ul (4.8-10.8)
[2024-11-14 07:22] LABS: ALC (manual) 0.97 K/uL (1.2-3.4); ANC (manual) 3.64 K/uL (1.4-6.5); Eosinophils # (manual) 0.23 K/uL (0-0.50); Eosinophils % (manual) 4 %; Lymphocytes # (manual) 0.97 K/uL (1.2-3.4); Lymphocytes % (manual) 17 %; Monocytes # (manual) 0.85 K/uL (0.11-0.59); Monocytes % (manual) 15 %; Neutrophils # (manual) 3.64 K/uL (1.40-6.50); Neutrophils % (manual) 64 %
[2024-11-14] MEDS: amLODIPine BESYLATE 5 MG TAB PO SCH (07:52)
[2024-11-14] MEDS: FOLIC ACID 1 MG TAB PO SCH (07:52)
[2024-11-14] MEDS: ATORVASTATIN 10 MG TAB PO SCH (07:52)
[2024-11-14] MEDS: CYANOCOBALAMIN (B-12) 500 MCG TABLET PO SCH (07:52)
[2024-11-14] MEDS: VALSARTAN 80 MG TAB PO SCH (07:52)
[2024-11-14] MEDS: LANTUS PER UNIT CHARGE SC ONE (09:02)
--- NOTE | 2024-11-14 10:48 | Podiatry Progress Note ---
Date of Service November 14, 2024 Assessment & Plan (1) Diabetic ulcer of left foot with fat layer exposed: (2) Diabetic ulcer of right foot with fat layer exposed: (3) Gangrene of toe of both feet: Plan Diabetic ulceration bilateral forefoot Superficial ulcerations to the bilateral forefoot which were previously healthy granular dermal wound beds have formed gangrenous eschar centrally. Eschar stable with no purulent drainage. No indication for debridement at this time. Recommend once daily dressing changes with Betadine wet to dry dressing. Okay to weight-bear in postop shoe bilateral. Minimize weightbearing whenever possible. -Bilateral foot x-rays reviewed. Findings concerning for possible osteomyelitis. Clinically there is no sign of deep wound extension to these locations or exposed bone at this time. Though osteomyelitis of the proximal phalanx of the bilateral hallux remnant is a possibility patient's current wounds are the result of repetitive stress and pressure on a poorly protected neuropathic foot I believe it is unlikely that the 2 are related. Recommend continued close monitoring, offloading and wound care. -Recommend continued antibiotic therapy while in house however should be reasonable to discharge on p.o. antibiotics. No real fluid collection or drainage for collection of culture. Wound beds are dry stable eschar in any culture swab would likely be found to have significant contamination from surface bacteria. -No plan for podiatric surgical intervention at this time as eschars are dry and relatively stable without fluctuance or deep extension. - Case discussed with Dr. Pérez and medical staff at [facility]. Lengthy discussion with nursing and medical staff at [facility]. In the [facility] patient will be in a room with up to 3 people in a hospital type bed. The shower is a communal room and there is no option for seated shower. I am informed that they will be able to accommodate sponge bath until patient is able to get the foot wet again. He will be able to maintain nonweightbearing for the most part however there are some activities that will require brief periods of weightbearing which she is to wear the postoperative shoes. An order has been placed for a wheelchair that he will be using at the [facility]. Reviewed wound care principles for gangrenous wounds of the feet. Patient needs to offload keep feet dry and change dressing once daily with Betadine wet-to-dry. Nursing staff will change dressing once daily and monitor for signs of local soft tissue infection and contact the diabetic foot clinic with any concern. Will attempt to get patient scheduled at the wound center for regular visits following discharge. Admission and Anticipated Discharge Date Admission Date: November 13, 2024 Subjective Patient resting comfortably in hospital bed with 1 arm and 1 leg handcuffed to the bed and 2 guards present in room from [facility]. Patient denies pain in the bilateral foot. Denies nausea vomiting fever chills. Denies shortness of breath or chest pain. Patient reports having a postop shoe in his cell back a rock few from previous digital amputations. In discussion with guards sounds like he may end up being held in the [facility] until his wounds heal in which case should be no issue with offloading devices of the bilateral foot. Review of Systems Review of Systems: Patient denies nausea vomiting fever chills. Denies shortness of breath or chest pain. He reports increased pain to the bilateral forefoot and deterioration of wounds. All other systems negative unless stated in HPI. Physical Exam Physical Exam: Const: Appears well developed and well nourished. No signs of acute distress present. CV: Extremities: No cyanosis or edema. Capillary refill time is less than 2 seconds all digits of the bilateral foot. Posterior tibial and dorsalis pedis pulses are palpable bilateral. Lymph: No palpable or visible regional lymphadenopathy. Neuro: Loss protective sensation to the bilateral foot. Psych: Mood/Affect: Mood is normal. Affect is normal. Cognition: Orientation is intact to person, place and time. Focused lower extremity musculoskeletal exam: Leg: No pain with compression of the calf muscle. Ankles: Normal to inspection and palpation. No swelling bilaterally. No tenderness bilaterally. Motor strength is intact. Range of motion pain-free and unlimited. Left foot: Status post second digit amputation and partial hallux amputation. Ulceration at the distal hallux with dry gangrene to the wound bed. Limited soft tissue coverage over the hallux remnant however there is no exposed bone or probe to bone at this time. No periwound erythema or edema. No active drainage. Is a large ovoid wound 7 fourth and fifth metatarsal head with stable eschar centrally. No fluctuance. No active drainage. No periwound erythema or edema. Gangrenous changes to the distal tip of the left third toe with small underlying fluid collection. Wound does not probe to bone. Right foot: Status post partial first and second digit amputation. There is breakdown of the soft tissue of the plantar forefoot at the distal aspect of the third fourth and fifth digits and subfirst and second metatarsal head as well as the plantar aspect of the hallux. Wounds with started with blister formation have all deroofed with the exception of the area subsecond metatarsal head which remains in place with underlying seropurulent drainage and mild malodor. Areas flushed and has a relatively healthy appearing granular wound bed. Remainder of the open wounds have early eschar formation centrally. No lymphangitis or streaking. Results & Data Results & Data Vital Signs (Past 12 Hours) Vital Signs Temp Pulse Resp BP Pulse Ox O2 Del Method 11/14/24 07:42 36.7 C 68 16 164/76 H 98 Room Air Coding Level of Care Code 44687 SUB INP/OBS CARE 3/50MIN Diagnoses Diabetic ulcer of left foot associated with type 2 diabetes mellitus, with fat layer exposed, unspecified part of foot E11.621; L97.522 Diabetes mellitus type: type 2 Diabetic foot ulcer location: unspecified part of foot Diabetic ulcer of right foot associated with type 2 diabetes mellitus, with fat layer exposed, unspecified part of foot E11.621; L97.512 Diabetes mellitus type: type 2 Diabetic foot ulcer location: unspecified part of foot Gangrene of toe of both feet I96 Time Spent (min) 58 Comment 11 min phone call discussing pt care with in house medical staff. (1) Diabetic ulcer of left foot with fat layer exposed Diabetes mellitus type: type 2 Diabetic foot ulcer location: unspecified part of foot Qualified Code(s): E11.621 - Type 2 diabetes mellitus with foot ulcer; L97.522 - Non-pressure chronic ulcer of other part of left foot with fat layer exposed (2) Diabetic ulcer of right foot with fat layer exposed Diabetes mellitus type: type 2 Diabetic foot ulcer location: unspecified part of foot Qualified Code(s): E11.621 - Type 2 diabetes mellitus with foot ulcer; L97.512 - Non-pressure chronic ulcer of other part of right foot with fat layer exposed
--- NOTE | 2024-11-14 11:20 | Hospitalist Progress Note ---
Date of Service November 14, 2024 Assessment & Plan (1) Diabetic ulcer of right foot associated with diabetes mellitus due to underlying condition, with fat layer exposed: Plan: -podiatry consult appreciated -wound cleaned and dressed -con't IV abx meropenum/vancomycin and will d/c on PO -vascular surgery consult pending (2) Hyperglycemia due to type 2 diabetes mellitus: Plan: hold metformin basal insulin 20 U BID SSI with target BSG range 110-140mg/dL, CF 20, carb ratio 3 A1C (3) Hyponatremia: Plan: Sodium 129 (baseline 131), Magnesium 1.6 2/2 poor nutrition? recent TSH 08/17/24 WNL denies fluid losses - n/v/d Trend BMP and mag (4) Hypomagnesemia: Plan: 1G IV mag ordered Plan Patient is a 69-year-old male with past medical history of T2DM, hypertension, hyperlipidemia, history of CVA, CKD, rheumatoid arthritis, ulcerative colitis, diastolic congestive heart failure. He was recently hospitalized from 11/04 to 11/06 for bilateral diabetic foot ulcers, discharged with diagnosis of gangrene of left third toe. He was evaluated by podiatry during this admission who recommended daily dressing changes. patient presented to the ED due to worsening foot wounds and pain. He is being admitted for bilateral foot wounds needing possible debridement. Chronic stable diagnoses: CKD - stable, at baseline, creatinine 1.9 on admission; monitor with vancomycin use Anemia - Hgb 11.0, chronic, continue folic acid and B12 hypertension - continue amlodipine and valsartan HLD - continue atorvastatin Diastolic CHF - EF 60%, hold Lasix in the setting of acute infection RA - hold hydroxychloroquine in setting of acute infection UC - Enbrel every Monday, hold/defer while inpatient H/o CVA VTE ppx: SCDs, low risk and possible surgical management Diet: T2DM Dispo: med surg Plan to return to correctional facility in next 24hrs. Admission and Anticipated Discharge Date Admission Date: November 13, 2024 Subjective No events overnight. Pt seen with wounds exposed being cleaned by podiatry. Denies any pain. Review of Systems Review of Systems: CONST: Negative for fever, body aches and chills. HENT: Negative for neck pain/stiffness, headache, congestion, sore throat, swelling. EYES: Negative for discharge/pain or vision changes. RESP: Negative for cough/hemoptysis and shortness of breath. CV: Negative chest pain, difficulty breathing, palpitations. ABD: Negative pain, nausea, vomiting. : Negative increase frequency, dysuria, blood in urine or stool. MUSC: Negative for muscle aches, edema. SKIN: Negative rash, lesions/sores. NEURO: Negative headache, dizziness, weakness. Physical Exam Physical Exam: GENERAL APPEARANCE NAD, activity normal for age, well developed/ well nourished, no cyanosis, pallor, or diaphoresis. EYES lids/conjunctiva normal. EARS/NOSE/THROAT Mucous membranes moist, nares normal, lips/teeth normal uvula midline without oral pharyngeal erythema, exudate or swelling TMs normal bilaterally. No lymphangitis/lymphedema. HEAD/NECK normocephalic atraumatic, no facial trauma, neck is supple. RESPIRATORY respiratory effort normal, speaks in full sentences, no tripod position, no accessory muscle use. Lungs clear to auscultation without rhonchi, wheezes, rales CARDIAC Regular rate and rhythm, no edema. ABDOMINAL Soft, ND/NT. No evidence of fluid wave. No pulsatile masses on exam, rebound tenderness, Díaz sign or pain over Mcburney's point. MUSCLES/EXTREMITIES No abnormal range of motion, no swelling. SKIN Warm, pink and dry. No rashes, dermatoses, petechiae or lesions. B/L foot ulcers with non draining wounds to toes NEUROLOGICAL Speech is clear and appropriate. Normal level of consciousness. Gait and coordination are normal. 5/5 strength in all extremities. PSYCH Normal mood and affect. Judgement/competence is appropriate Results & Data Results & Data Vital Signs (Past 12 Hours) Vital Signs Temp Pulse Resp BP Pulse Ox O2 Del Method 11/14/24 07:42 36.7 C 68 16 164/76 H 98 Room Air PG Care Time/CCT Total # of Minutes Spent Total Time Spent with Patient: Total time spent is greater than 50% in coordination of care (as documented) at patient's floor/unit and/or counseling patient: Coding Level of Care Code 36775 SUB INP/OBS CARE 2/35MIN Diagnoses Diabetic ulcer of toe of right foot associated with diabetes mellitus due to underlying condition, with fat layer exposed E08.621; L97.512 Diabetic foot ulcer location: toe Hyperglycemia due to type 2 diabetes mellitus E11.65 Hyponatremia E87.1 Hypomagnesemia E83.42 (1) Diabetic ulcer of right foot associated with diabetes mellitus due to underlying condition, with fat layer exposed Diabetic foot ulcer location: toe Qualified Code(s): E08.621 - Diabetes mellitus due to underlying condition with foot ulcer; L97.512 - Non-pressure chronic ulcer of other part of right foot with fat layer exposed
--- NOTE | 2024-11-14 13:58 | History & Physical Report ---
Date of Service November 14, 2024 Assessment & Plan (1) Diabetic foot ulcer: Plan: This gentleman has ulcerations of toes of both feet. He also has bilateral leg edema. His arteries however show normal pulses in both feet, good capillary refill, and arterial noninvasive which has triphasic waveforms throughout both lower extremities and no evidence of occlusion. The stenosis of his dorsalis pedis of the right foot is not significant and due to its location artery and has no treatment for it. Would continue with compression stockings for the lower extremities and wound care by podiatry. No vascular follow-up is needed. Thank you very much for letting us participate in the care of this patient. Admission and Anticipated Discharge Date Admission Date: November 13, 2024 History of Present Illness Chief Complaint: Bilateral foot ulcers Primary Care Provider: PHUONG Calle This is a 69-year-old gentleman who was admitted with bilateral foot ulcerations and edema. His workup included an arterial study which showed a stenosis of his dorsalis pedis artery on the right foot. He does not give a history of claudication or rest pain. He plans that he has had significant edema in the lower extremities where they were twice the size of what they normally are. Allergies Allergy/AdvReac Type Severity Reaction Status Date / Time No Known Allergies Allergy Verified 11/04/24 12:25 Home Medications Medication Instructions Recorded Confirmed Type docusate sodium 100 mg tablet 100 mg PO BID PRN Constipation 10/18/20 11/13/24 History etanercept 50 mg/mL (1 mL) 50 mg subcut WK 10/18/20 11/13/24 History subcutaneous syringe (Enbrel) folic acid 1 mg tablet 1 mg PO DAILY 10/18/20 11/13/24 History hydroxychloroquine 200 mg tablet 200 mg PO DAILY 10/18/20 11/13/24 History nortriptyline 25 mg capsule 25 mg PO BID 10/18/20 11/13/24 History amlodipine 10 mg tablet 10 mg PO DAILY 10/05/22 11/13/24 History atorvastatin 10 mg tablet 10 mg PO DAILY 10/05/22 11/13/24 History albuterol sulfate 90 mcg/actuation 2 puff inhalation QID PRN 03/12/23 11/13/24 History aerosol inhaler Shortness Of Breath glucose 4 gram chewable tablet See Rx Instructions .Route 03/12/23 11/13/24 History .COMPLEX PRN HYPOGLYCLEMIA cyanocobalamin (vitamin B-12) 500 500 mcg PO DAILY 02/10/24 11/13/24 History mcg tablet insulin regular human 100 unit/mL 0 sliding scale dose subcut UD PRN 02/10/24 11/13/24 History (3 mL) subcutaneous pen (Novolin R Hyperglycemia FlexPen) insulin regular human 100 unit/mL 10 unit subcut BIDWMEAL 02/10/24 11/13/24 History (3 mL) subcutaneous pen (Novolin R FlexPen) metformin 500 mg tablet 500 mg PO BID 09/09/24 11/13/24 History valsartan 80 mg tablet 80 mg PO DAILY 09/09/24 11/13/24 History insulin NPH isoph U-100 human 100 14 unit (0.14 mL) subcut QPM #0 mL 09/18/24 11/13/24 Rx unit/mL (3 mL) subcutaneous pen (Novolin N FlexPen) insulin NPH isoph U-100 human 100 22 unit (0.22 mL) subcut QAM #0 mL 09/18/24 11/13/24 Rx unit/mL (3 mL) subcutaneous pen (Novolin N FlexPen) emollient See Rx Instructions .Route .COMPLEX 11/04/24 11/13/24 History furosemide 20 mg tablet 20 mg PO DAILY 11/04/24 11/13/24 History silver sulfadiazine 1 % topical 1 applic EXT DAILY #100 grams 11/06/24 11/13/24 Rx cream (SSD) Past Med/Surg History Problem List Gangrene of toe of both feet Diabetic ulcer of left foot with fat layer exposed Diabetic ulcer of right foot with fat layer exposed Hypomagnesemia Hyponatremia Hyperglycemia due to type 2 diabetes mellitus Hyperglycemia (Acute) APRIL (acute kidney injury) (Acute) Osteomyelitis of both feet (Acute) Osteomyelitis of foot, left, acute (Acute) Acute hyperglycemia (Acute) Degloving injury of foot (Acute) Loss of protective sensation of skin of deformed foot with peripheral vascular disease of foot Diabetic ulcer of left foot associated with diabetes mellitus due to underlying condition, limited to breakdown of skin Diabetic ulcer of right foot associated with diabetes mellitus due to underlying condition, with fat layer exposed Tear of skin of plantar aspect of foot Diabetes mellitus with peripheral angiopathy with gangrene Hypoglycemia (Acute) Failure of outpatient treatment (Acute) Osteomyelitis (Acute) CKD stage 3b, GFR 30-44 ml/min Ulcerative colitis H/O: CVA (cerebrovascular accident) Acute osteomyelitis of toe of right foot Vocal cord anomaly Rheumatoid arthritis Head injury (Acute) Orthostatic hypotension (Acute) Type 2 diabetes mellitus with polyneuropathy (Acute) Diabetic ulcer of left foot associated with diabetes mellitus due to underlying condition, with necrosis of bone Cellulitis of foot, left (Acute) Type 2 diabetes mellitus Right lower lobe pneumonia (Acute) SOB (shortness of breath) (Acute) Acute hyperkalemia (Acute) Orthostatic hypotension Recurrent syncope Surgical history unknown HTN (hypertension) (Chronic) Diabetes (Chronic) Hyperlipidemia (Chronic) CVA (cerebral infarction) (Acute 2016) Colitis Syncope (Acute 2016) Medical History APRIL (acute kidney injury) Diabetic foot ulcer CKD (chronic kidney disease) PARIL (acute kidney injury) Elevated troponin HHNC (hyperglycemic hyperosmolar nonketotic coma) Orthostatic hypotension (2016) Anemia Surgical History S/P craniotomy Family History Other Family history non-contributory Social History Smoking Status: Current every day smoker Tobacco Type: Cigarettes Age Started Using Tobacco: 13; packs per day: 0.5; Second Hand Exposure: No; Do You Dip or Chew Tobacco: No; Hx Alcohol Use: No Hx Substance Use: Yes Prescribed Medications: Marijuana Last Used Substance: Unknown Last Used Substance Other:: >5 years ago Substance Use Type Other:: K2 Preferred Language: Stateless Communication Ability: Effective Dress Cutter Required: No Beliefs That Will Affect Care: None marital status: Current Living Situation: Other Current Living Situation Comment: [facility] current occupational status: unemployed Feels Safe at Home: Yes Assistive Devices: Glasses Review of Systems All systems reviewed & are unremarkable except as noted in HPI & below Physical Exam Constitutional: WD/WN, vitals as above Respiratory: normal respiratory effort; no respiratory distress Cardiovascular: Rate/Rhythm: regular rate and regular rhythm Vessels: normal peripheral pulses Extremities: + edema (Both lower extremities) Gastrointestinal (Abdomen): Inspection/Auscultation: abdomen normal to inspection Skin: + wound (Toes of both feet with eschar) Neurologic: CN's II-XI intact bilaterally and moves all extremities Psychiatric: A+Ox3, euthymic affect Results & Data Vital Signs (Past 12 Hours) Vital Signs Temp Pulse Resp BP Pulse Ox O2 Del Method 11/14/24 07:42 36.7 C 68 16 164/76 H 98 Room Air Code Status & VTE Plan VTE Prophylaxis Plan VTE Prophylaxis will be ordered: Yes
[2024-11-14] MEDS: MEROPENEM 500 MG in SYRINGE 0 ML IV SCH (15:12)
[2024-11-14 21:01] VITALS: O2SAT 97
[2024-11-14] MEDS: LANTUS PER UNIT CHARGE SC SCH (21:03)
[2024-11-15] MEDS: VANCOMYCIN LEVEL ONE (05:04)
[2024-11-15 06:36] LABS: Basophils # (auto) 0.04 K/uL (0.00-0.20); Basophils % (auto) 0.7 %; Eosinophils # (auto) 0.28 K/uL (0.00-0.50); Hematocrit (blood only) 36.7 % (42.0-52.0); Hemoglobin 11.9 g/dl (14.0-18.0); Immature Granulocytes # (auto) 0.05 K/uL (0.01-0.20); Immature Granulocytes % (auto) 0.9 %; Lymphocytes # (auto) 1.01 K/uL (1.20-3.40); Lymphocytes % (auto) 18.2 %; Mean Corpuscular Hemoglobin 28.9 pg (25.0-34.0); Mean Corpuscular Hgb Conc 32.4 g/dL (32.0-36.0); Mean Corpuscular Volume 89.1 fL (80.0-100.0); Mean Platelet Volume 9.9 fL (9.4-12.4); Monocytes # (auto) 0.74 K/uL (0.11-0.59); Monocytes % (auto) 13.3 %; Neutrophils # (auto) 3.44 K/uL (1.40-6.50); Neutrophils % (auto) 61.9 %; Platelet Count 241 K/uL (130-400); RDW Standard Deviation 42.5 fL (36.4-46.3); Red Blood Count 4.12 M/uL (4.70-6.10); White Blood Count 5.56 K/ul (4.8-10.8)
[2024-11-15 06:42] LABS: Bilirubin,Total 0.3 mg/dl (0.2-1.0); Calcium 8.9 mg/dl (8.6-10.3); Magnesium 1.6 mg/dl (1.7-2.4); Potassium 4.3 mmol/L (3.5-5.1)
[2024-11-15 06:48] LABS: Albumin Globulin Ratio 0.7 (0.9-2); BUN Creatinine Ratio 17.2 (10-20); Creatinine Clr Calc Pharmacy 64.3 ml/min; Globulin 4.6 gm/dl (2.5-4.0); Total Protein 7.6 gm/dl (6.0-8.3)
[2024-11-15 07:29] VITALS: RESP 16; TEMP 97.5
[2024-11-15] MEDS: LANTUS PER UNIT CHARGE SC SCH (08:57)
--- NOTE | 2024-11-15 10:55 | Pharmacy Report ---
Pharmacy PK ABX Note - Date of Service November 15, 2024 - Assessment and Plan Assessment 11/15: Vanco level drawn this morning was 10.6mcg/mL which extrapolates to a subtherapeutic AUC (< 400). The Vancomycin has been increased to 1000mg iv q 12 hours starting this morning. * Right great toe culture grew Strep agalactiae; Left great toe culture grew S. aureus and Strep agalactiae--All sensitivities are pending. * MRSA nasal swab is negative * Patient afebrile, without leukocytosis, and renal function has been improving. Patient continues on meropenem 500mg iv q 6 hours has well. 11/13: 69 year old M receiving vancomycin/meropenem for treatment of acute toe osteomyelitis. Pertinent microbiologic data includes: previous hx of ESBL E. coli, MRSA, Pseudomonas aeruginosa, anaerobes. Foot x-rays with evidence of osteo. Vascular, podiatry, wound care consulted. Patient with CKD, appears to be close to baseline . Plan Vancomycin * Vanco level this morning was 10.6 which extrapolates to AUC < 400 * Increased maintenance dose: 1000 mg IV every 12 hours * Regimen is predicted to achieve target AUC/TESSY of 400-600 mg/L.hr * Random level will be ordered in the next 48 hours if the vancomycin is continued. Pharmacy will continue to follow and will adjust dose/frequency as necessary. Thank you. Pharmacy has transitioned to AUC monitoring for vancomycin. AUC/TESSY is the preferred PK/PD target and is associated with decreased risk of nephrotoxicity compared to traditional trough targets.
[2024-11-15] MEDS: VANCOMYCIN HCL 1,000 MG/270 ML BAG IV SCH (11:22)
--- NOTE | 2024-11-15 13:52 | Discharge Summary ---
Discharge Summary Date of Service November 15, 2024 Principal Dx & Hospital Course #1 = Principal Diagnosis (1) Diabetic ulcer of right foot associated with diabetes mellitus due to underlying condition, with fat layer exposed: -podiatry consult appreciated -wound cleaned and dressed -con't IV abx meropenum/vancomycin and will d/c on PO -vascular surgery consult pending (2) Hyperglycemia due to type 2 diabetes mellitus: hold metformin basal insulin 20 U BID SSI with target BSG range 110-140mg/dL, CF 20, carb ratio 3 A1C (3) Hyponatremia: Sodium 129 (baseline 131), Magnesium 1.6 2/2 poor nutrition? recent TSH 08/17/24 WNL denies fluid losses - n/v/d Trend BMP and mag (4) Hypomagnesemia: 1G IV mag ordered Plan Patient is a 69-year-old male with past medical history of T2DM, hypertension, hyperlipidemia, history of CVA, CKD, rheumatoid arthritis, ulcerative colitis, diastolic congestive heart failure. He was recently hospitalized from 11/04 to 11/06 for bilateral diabetic foot ulcers, discharged with diagnosis of gangrene of left third toe. He was evaluated by podiatry during this admission who recommended daily dressing changes. patient presented to the ED due to worsening foot wounds and pain. He is being admitted for bilateral foot wounds needing possible debridement. Chronic stable diagnoses: CKD - stable, at baseline, creatinine 1.9 on admission; monitor with vancomycin use Anemia - Hgb 11.0, chronic, continue folic acid and B12 hypertension - continue amlodipine and valsartan HLD - continue atorvastatin Diastolic CHF - EF 60%, hold Lasix in the setting of acute infection RA - hold hydroxychloroquine in setting of acute infection UC - Enbrel every Monday, hold/defer while inpatient H/o CVA VTE ppx: SCDs, low risk and possible surgical management Diet: T2DM Dispo: med surg Plan to return to correctional facility in next 24hrs. Admission HPI Per Admitting Provider This is a 69-year-old gentleman who was admitted with bilateral foot ulcerations and edema. His workup included an arterial study which showed a stenosis of his dorsalis pedis artery on the right foot. He does not give a history of claudication or rest pain. He plans that he has had significant edema in the lower extremities where they were twice the size of what they normally are. Discharge Exam GENERAL APPEARANCE NAD, activity normal for age, well developed/ well nourished, no cyanosis, pallor, or diaphoresis. EYES lids/conjunctiva normal. EARS/NOSE/THROAT Mucous membranes moist, nares normal, lips/teeth normal uvula midline without oral pharyngeal erythema, exudate or swelling TMs normal bilaterally. No lymphangitis/lymphedema. HEAD/NECK normocephalic atraumatic, no facial trauma, neck is supple. RESPIRATORY respiratory effort normal, speaks in full sentences, no tripod position, no accessory muscle use. Lungs clear to auscultation without rhonchi, wheezes, rales CARDIAC Regular rate and rhythm, no edema. ABDOMINAL Soft, ND/NT. No evidence of fluid wave. No pulsatile masses on exam, rebound tenderness, Díaz sign or pain over Mcburney's point. MUSCLES/EXTREMITIES No abnormal range of motion, no swelling. SKIN Warm, pink and dry. No rashes, dermatoses, petechiae or lesions. B/L foot ulcers with non draining wounds to toes NEUROLOGICAL Speech is clear and appropriate. Normal level of consciousness. Gait and coordination are normal. 5/5 strength in all extremities. PSYCH Normal mood and affect. Judgement/competence is appropriate Discharge Plan Discharge Items Patient Disposition: [facility] Reason For Visit: BI FOOT WOUNDS, GANGRENOUS Discharge Diagnosis: diabetic foot ulcer Activity: Resume your previous activity Non-emergency contact: Primary Care Provider Call non-emergency contact if: you have any medication questions Follow-up/Referrals: Luc BACA [Primary Care Provider] - Diet: Regular Addtl Attending Provider Instructions: Follow up with [facility] in 1 week Pending Studies at Discharge: No Stand-Alone Forms: My [facility] Skilled Items Patient informed of condition?: Yes Discharge Level of Care: Other Communicable Disease: No Discharge Prognosis: Stable Lines: None Urinary Catheter: No Medications and DC Order Prescriptions: New sulfamethoxazole-trimethoprim [Bactrim DS] 800-160 mg tablet 1 tab PO DAILY 14 Days Qty: 14 0RF Continued nortriptyline 25 mg Capsule 25 mg PO BID folic acid 1 mg Tablet 1 mg PO DAILY hydroxychloroquine 200 mg Tablet 200 mg PO DAILY docusate sodium 100 mg Tablet 100 mg PO BID PRN (Reason: Constipation) Enbrel 50 mg/mL (1 mL) Syringe 50 mg SUBCUT WK Rx Instructions: WEDNESDAYS atorvastatin 10 mg Tablet 10 mg PO DAILY amlodipine 10 mg Tablet 10 mg PO DAILY Rx Instructions: HOLD IF B/P IS <120/80 glucose 4 gram Tablet,Chewable See Rx Instructions .ROUTE .COMPLEX PRN (Reason: HYPOGLYCLEMIA) Rx Instructions: Glucose 3.75gm: Chew and swallow as needed for hypoglycemia albuterol sulfate 90 mcg/actuation Hfa Aerosol Inhaler 2 puff INHALATION QID PRN (Reason: Shortness Of Breath) emollient Lubricant See Rx Instructions .ROUTE .COMPLEX Rx Instructions: Hydrating Petrol 42% ointment, apply 1 application topically twice daily furosemide 20 mg tablet 20 mg PO DAILY silver sulfadiazine [SSD] 1 % Cream 1 applic EXT DAILY Qty: 100 0RF Novolin R FlexPen 100 unit/mL (3 mL) Insulin Pen 0 sliding scale dose SUBCUT UD PRN (Reason: Hyperglycemia) Rx Instructions: 201-250 = 2units; 251-300 = 4units; 301-350 = 6units; 351-400 = 8units; 401- 450 = 10units; 451-500 = 12units. >500 call cyanocobalamin (vitamin B-12) 500 mcg Tablet 500 mcg PO DAILY Novolin R FlexPen 100 unit/mL (3 mL) Insulin Pen 10 unit SUBCUT BIDWMEAL metformin 500 mg Tablet 500 mg PO BID valsartan 80 mg Tablet 80 mg PO DAILY Hold Instructions: Resume on 09/20/24. recheck BMP to ensure APRIL has resolved before resuming. Novolin N FlexPen 100 unit/mL (3 mL) Insulin Pen 14 unit SUBCUT QPM Qty: 0 0RF Novolin N FlexPen 100 unit/mL (3 mL) Insulin Pen 22 unit SUBCUT QAM Qty: 0 0RF Discharge Orders: Discharge Order (Routine); Ordered 11/15/24 Ordered By: Parvez Pérez Admission Data Admit Date/Time: 11/13/24 11:24 Attending Provider: Parvez Pérez Admit Provider: Dima Fitzpatrick Primary Care Provider: Luc BACA Other Providers: Dima Fitzpatrick; Farhan Rebolledo; Osman Laws Hospital Stay Data Consultations 11/13/24 10:48 ED Decision to Admit Stat 11/13/24 10:59 Consult Podiatry Routine 11/13/24 11:13 Consult Vascular Surgery Routine Pending Results Patient Have Any Pending Studies at Discharge: No Discharge Instructions Given to Patient (Per Discharging Provider) Follow up with [facility] in 1 week Total Time Total Time Spent Total Time Spent (In Minutes): 50 Coding Level of Care Code 89903 INP/OBS DISCH >30 MIN Diagnoses Diabetic ulcer of toe of right foot associated with diabetes mellitus due to underlying condition, with fat layer exposed E08.621; L97.512 Diabetic foot ulcer location: toe Hyperglycemia due to type 2 diabetes mellitus E11.65 Hyponatremia E87.1 Hypomagnesemia E83.42
[2024-11-15 14:01] VITALS: BP 148/82; PULSE 70
--- NOTE | 2024-11-15 14:47 | Podiatry Progress Note ---
Date of Service November 15, 2024 Assessment & Plan (1) Gangrene of toe of both feet: (2) Diabetic ulcer of left foot with fat layer exposed: (3) Diabetic ulcer of right foot with fat layer exposed: Plan Superficial ulcerations to the bilateral forefoot which were previously healthy granular dermal wound beds have formed gangrenous eschar centrally. Eschar stable with no purulent drainage. No indication for debridement at this time. -Recommend once daily dressing changes with Betadine wet to dry dressing. Okay to weight-bear in postop shoe bilateral. Minimize weightbearing whenever possible. -Bilateral foot dressings changed for patient today. Nursing staff to change dressing once daily over the weekend with Betadine wet-to-dry's. -Recommend continued antibiotic therapy while in house however should be reasonable to discharge on p.o. antibiotics. No real fluid collection or drainage for collection of culture. Wound beds are dry stable eschar in any culture swab would likely be found to have significant contamination from surface bacteria. Lengthy discussion with nursing and medical staff at [facility]. In the [facility] patient will be in a room with up to 3 people in a hospital type bed. Patient to avoid communal shower. I am informed that they will be able to accommodate sponge bath until patient is able to get the foot wet again. He will be able to maintain nonweightbearing for the most part however there are some activities that will require brief periods of weightbearing which she is to wear the postoperative shoes. An order has been placed for a wheelchair that he will be using at the skilled nursing. Reviewed wound care principles for gangrenous wounds of the feet. Patient needs to offload keep feet dry and change dressing once daily with Betadine wet-to-dry. Nursing staff will change dressing once daily and monitor for signs of local soft tissue infection and contact the diabetic foot clinic with any concern. Will attempt to get patient scheduled at the wound center for regular visits following discharge. Admission and Anticipated Discharge Date Admission Date: November 13, 2024 Subjective Patient seen resting comfortably in hospital bed with 2 guards from [facility] present in room. Right ankle and left arm are handcuffed to the bed. Dressings changed without incident. Patient reports that he has been off of the feet for the past 24 hours. Reports decreased pain in the bilateral foot. I explained to patient that I spoke with the medical staff at [facility] they are aware that he needs to remain minimally weightbearing to the bilateral foot. Explained that should his situation were applied where he does require weightbearing he should be in bilateral postop shoes and make this is brief is possible. I have asked them to keep him out of the shower as it is a communal shower and there is no shower chair. Patient understands he is not to put weight on the foot, he is not to get the foot wet and it sounds like the shower at the skilled nursing would be the worst possible scenario given the nature of his wounds. He will be permitted to do self sponge baths with assistance as needed. They have placed an order for him to have a wheelchair at the skilled nursing. He will be in a hospital bed primarily and can use a urinal. Dressing changes will be once daily with Betadine wet-to-dry dressing to the bilateral foot. Review of Systems Review of Systems: Patient denies nausea vomiting fever chills. Denies shortness of breath or chest pain. He reports decreased pain to the bilateral forefoot and deterioration of wounds. All other systems negative unless stated in HPI. Physical Exam Physical Exam: Const: Appears well developed and well nourished. No signs of acute distress present. CV: Extremities: No cyanosis or edema. Capillary refill time is less than 2 seconds all digits of the bilateral foot. Posterior tibial and dorsalis pedis pulses are palpable bilateral. Lymph: No palpable or visible regional lymphadenopathy. Neuro: Loss protective sensation to the bilateral foot. Psych: Mood/Affect: Mood is normal. Affect is normal. Cognition: Orientation is intact to person, place and time. Focused lower extremity musculoskeletal exam: Leg: No pain with compression of the calf muscle. Ankles: Normal to inspection and palpation. No swelling bilaterally. No tenderness bilaterally. Motor strength is intact. Range of motion pain-free and unlimited. Left foot: Status post second digit amputation and partial hallux amputation. Ulceration at the distal hallux with dry gangrene to the wound bed. Limited soft tissue coverage over the hallux remnant however there is no exposed bone or probe to bone at this time. No periwound erythema or edema. No active drainage. Is a large ovoid wound 7 fourth and fifth metatarsal head with stable eschar centrally. No fluctuance. No active drainage. No periwound erythema or edema. Gangrenous changes to the distal tip of the left third toe with small underlying fluid collection. Wound does not probe to bone. Right foot: Status post partial first and second digit amputation. There is breakdown of the soft tissue of the plantar forefoot at the distal aspect of the third fourth and fifth digits and subfirst and second metatarsal head as well as the plantar aspect of the hallux. All wound beds are stable gangrenous tissue. No active drainage. No lymphangitis or streaking. Results & Data Results & Data Vital Signs (Past 12 Hours) Vital Signs Temp Pulse Resp BP Pulse Ox O2 Del Method 11/15/24 07:28 36.4 C L 69 16 182/84 H 97 Room Air Laboratory Results White blood count 5.56 Coding Level of Care Code 06014 SUB INP/OBS CARE 10/19MIN Diagnoses Gangrene of toe of both feet I96 Diabetic ulcer of left foot associated with type 2 diabetes mellitus, with fat layer exposed, unspecified part of foot E11.621; L97.522 Diabetic foot ulcer location: unspecified part of foot Diabetes mellitus type: type 2 Diabetic ulcer of right foot associated with type 2 diabetes mellitus, with fat layer exposed, unspecified part of foot E11.621; L97.512 Diabetic foot ulcer location: unspecified part of foot Diabetes mellitus type: type 2 (2) Diabetic ulcer of left foot with fat layer exposed Diabetic foot ulcer location: unspecified part of foot Diabetes mellitus type: type 2 Qualified Code(s): E11.621 - Type 2 diabetes mellitus with foot ulcer; L97.522 - Non-pressure chronic ulcer of other part of left foot with fat layer exposed (3) Diabetic ulcer of right foot with fat layer exposed Diabetic foot ulcer location: unspecified part of foot Diabetes mellitus type: type 2 Qualified Code(s): E11.621 - Type 2 diabetes mellitus with foot ulcer; L97.512 - Non-pressure chronic ulcer of other part of right foot with fat layer exposed
== END 2024-11-15 15:45 | DRG 300 ==
LOC: ED 07:40 → SUATTDRO 11:24 → EDINP 11:24 → 3E 15:43

== ENCOUNTER 2025-05-18 14:01 | Inpatient (IN) ==
[2025-05-18] MEDS: NALOXONE HCL 0.4 MG/1 ML VIAL/CARP IV STA ×2 (14:13→14:22)
[2025-05-18] MEDS: NALOXONE HCL INJ 1 MG/ML 2ML SYR INTNAS ONE (14:13)
[2025-05-18] MEDS: OPTIRAY 320 125ml IV ONE (14:28)
[2025-05-18 14:29] LABS: Hematocrit (blood only) 35.6 % (42.0-52.0); Hemoglobin 11.5 g/dl (14.0-18.0); Immature Granulocytes # (auto) 0.03 K/uL (0.01-0.20); Immature Granulocytes % (auto) 0.4 %; Mean Corpuscular Hemoglobin 28.0 pg (25.0-34.0); Mean Corpuscular Volume 86.8 fL (80.0-100.0); Platelet Count 253 K/uL (130-400); RDW Standard Deviation 43.8 fL (36.4-46.3); Red Blood Count 4.10 M/uL (4.70-6.10); White Blood Count 6.86 K/ul (4.8-10.8)
[2025-05-18 14:35] LABS: iSTAT Art Bld Gas Base Excess 2.0 meg/L (-9-1.8); iSTAT Art Bld Gas pCO2 Correct 68 mmHg (35-46); iSTAT Art Bld Gas pH Corrected 7.239 (7.35-7.45); iSTAT Arterial Blood Gas pO2 C 33
[2025-05-18] MEDS: SODIUM CHLORIDE 0.9% 1,000 ML IV SCH ×2 (14:38→20:43)
[2025-05-18] MEDS ORDERED: STAT IV Infusion **Titration per Protocol STA (14:47)
[2025-05-18 14:48] LABS: Alanine Aminotransferase 33 U/L (7-52); Albumin Globulin Ratio 0.8 (0.9-2); Alkaline Phosphatase 75 U/L (34-104); Anion Gap 2 (3-11); Bilirubin,Total 0.3 mg/dl (0.2-1.0); Blood Urea Nitrogen 41 mg/dl (6-23); Calcium 9.0 mg/dl (8.6-10.3); Carbon Dioxide 30 mmol/L (21-32); Chloride 101 mmol/L (98-107); Globulin 4.5 gm/dl (2.5-4.0); Glucose 225 mg/dl (70-99(Fasting)); Lipase 23 U/L (11-82); Magnesium 2.2 mg/dl (1.7-2.4); Potassium 4.7 mmol/L (3.5-5.1); Sodium 133 mmol/L (136-145); Total Protein 7.9 gm/dl (6.0-8.3)
--- NOTE | 2025-05-18 14:52 | CT Scan Report ---
EXAM: CT angio neck with con CLINICAL HISTORY: Unresponsive TECHNIQUE: Contiguous CTA axial images were obtained through the neck with the administration of intravenous contrast. Sagittal and coronal reformations are supplied. MIPS are supplied. COMPARISON: None FINDINGS: Motion artifact degrades image quality. Left-sided aortic arch is present. Mild atherosclerotic disease in the carotid bulbs and proximal internal carotid arteries. No hemodynamically significant stenosis or thrombus. The internal carotid arteries into the petrous portion of the skull base normally. Vertebral arteries are bilaterally symmetric. No occlusion. Both contribute to the basilar artery at the skull base. IMPRESSION: No CTA evidence of an acute arterial abnormality in the neck. Electronically signed by Shira Lundberg 05-18-2025 2:52 PM
--- NOTE | 2025-05-18 14:53 | CT Scan Report ---
EXAM: CTA head with CLINICAL HISTORY: Altered mental status, unresponsive TECHNIQUE: Contiguous CTA axial images were obtained through the head after the administration of intravenous contrast. Sagittal and coronal reformations are supplied. PRIORS: None FINDINGS: The vertebral arteries form the basilar artery at the skull base. [place] is patent. No thrombus or hemodynamically significant stenosis. No aneurysmal dilatation or adamson aneurysm. Mild calcified atherosclerotic disease of the internal carotid arteries in the cavernous sinuses noticed. No enhancing mass in the brain. IMPRESSION: No CTA evidence of an acute vascular abnormality. Electronically signed by Shira Lundberg 05-18-2025 2:52 PM
--- NOTE | 2025-05-18 14:53 | CT Scan Report ---
EXAMINATION: Head CT without CLINICAL HISTORY: Altered mental status, unresponsive. History of stroke. PRIORS: None TECHNIQUE: Contiguous axial images were obtained through the head without the use of intravenous contrast. Sagittal and coronal reformations are supplied. FINDINGS: Significant motion artifact noted diminishing image quality. Left craniotomy present with surgical clips creating beam hardening artifact. Mild to moderate parenchymal volume loss noted. Scattered heterogeneous lucency present in the periventricular white matter, likely small vessel occlusive disease. 8 left lacunar infarction with a chronic appearance present, basal ganglia, image 16, series 2. Flores-white differentiation is preserved. No edema or midline shift. No intra-axial or extra-axial hemorrhage. Ventricles are normal in size and configuration. Brainstem and cerebellum have a normal appearance. Calvarium unremarkable. Paranasal sinuses and mastoid air cells are well-pneumatized. Globes are intact. No retrobulbar abnormality. IMPRESSION: 1. No CT evidence of an acute intracranial abnormality. If clinical concern warrants, brain MRI is suggested as it is more sensitive and specific for acute to subacute infarction. 2. Chronic changes noted above. Electronically signed by Shira Lundberg 05-18-2025 2:52 PM
[2025-05-18 15:04] LABS: Thyroid Stimulating Hormone 3.734 uIu/ml (0.300-4.500)
[2025-05-18 15:12] LABS: INR 1.0 (0.9-1.1); Prothrombin Time 10.5 Seconds (9.0-12.0)
[2025-05-18] MEDS ORDERED: NALOXONE HCL 0.4 MG/1 ML VIAL/CARP IV ONE (15:15)
[2025-05-18] MEDS: NALOXONE HCL 5 MG in SODIUM CHLORIDE 0.9% 87.5 ML IV SCH (15:17)
--- NOTE | 2025-05-18 15:18 | Emergency Department Note ---
Impression & Plan Unresponsive episode, Hypoventilation, Hyperglycemia due to type 2 diabetes mellitus, Opioid overdose ED Provider Note ED Provider Note NAME: DEBORAH [id number] JOSUE AGE:70 SEX: Male : 1955 ARRIVES VIA: EMS INFORMANT: Patient ED PROVIDER(s): Beverley Christine DO CHIEF COMPLAINT: unresponsive HPI: This is a 70-year-old male who presents to the emergency department via EMS after being found unresponsive by staff at the residential. [facility] and given 4 mg of intranasal Narcan. He immediately sat up, flailing his arms, and yelling, and then very quickly laid back down and became unresponsive again. EMS reports on their arrival he was unresponsive. An IV was established and he was given additional 4 mg Narcan IV en route without any change in his condition or improvement. Patient was kept on oxygen via nasal cannula as a precaution however respirations noted to be between 4 and 6/min. Assisted staff who accompanied EMS report he is typically well-behaved. They were not aware of any other recent change in his overall health. On arrival here patient unable to provide any history, he was slightly responsive to painful stimuli however would not answer questions. Respiratory right still very mild patient maintaining oxygen with nasal cannula. Guards accompanying the patient note there have been incidences similarly with Suboxone being passed around the prisoners. The guards state the policy on administration of Suboxone in the [facility] has changed and they believe this is a contributing factor. PAST MEDICAL HISTORY:See Below PAST SURGICAL HISTORY:See Below FAMILY HISTORY:See Below SOCIAL HISTORY:See Below HOME MEDICATIONS:See Below ALLERGIES:See Below VITALS:See Below PHYSICAL EXAMINATION: GENERAL: somnolent appearing, well nourished, no distress, non-toxic EYE EXAM: normal conjunctiva, PERRL and EOM's grossly intact OROPHARYNX: no exudate, no erythema, lips, buccal mucosa, and tongue normal and mucous membranes are dry NECK: supple, no nuchal rigidity, no adenopathy, non-tender LUNGS: Clear to auscultation. Normal chest wall mechanics, no w/r/r HEART: no murmurs, S1 normal and S2 normal ABDOMEN: abdomen soft, non-tender, normo-active bowel sounds, no masses, no rebound or guarding. BACK: Back is symmetrical on inspection and there is no deformity, no midline tenderness, no CVA tenderness. SKIN: no rashes, petechiae, orbruising UPPER EXTREMITIES: upper extremities are grossly normal. FROM, nml pulses b/l. LOWER EXTREMITIES: 2+ b/l pitting edema. FROM, nml pulses b/l. NEURO EXAM: responds to painful stimuli and will open eyes to pain and moan to pain, cranial nerves II-XII grossly intact, normal speech, no facial droop,nogross weakness of arms, no gross weakness of legs. Gross sensation intact. No ataxia. Vital Signs: reviewed and remarkable Differential Diagnosis: CVA/TIA, ICH, APRIL, PNA, UTI, medication ADR, bacteremia/sepsis, occult trauma, hypoxia, hypercapnia, electrolyte abnormality, as well as others were considered MEDICAL DECISION MAKING: This is a 70-year-old male presents via EMS from a local residential facility due to concern for unresponsive episode. Patient had received a total of 8 mg of Narcan prior to his arrival here. EMS reported prehospital blood sugar in the 200s, other vital signs stable however patient with a low respiratory rate of between 4 and 6. Patient was minimally responsive to painful stimuli here so additional Narcan was given. Patient did have some improvement of his respiratory rate and pCO2 after 2 doses of Narcan in the emergency department and felt stable for leaving the department for CT imaging. Chest x-ray without significant acute process to otherwise explain hypoventilation and after discussion with the residential guards, I suspect patient with an accidental overdose of Suboxone. Given persistent low respiratory rate and in consideration of the long half-life of Suboxone, I discussed initiating a Narcan drip with the ED pharmacist. CT imaging reassuring. Patient noted to be hyperglycemic however no evidence for DKA. Patient did have an elevation of his creatinine although does have prior history of APRIL. Patient's respiratory rate in level of alertness improved after being initiated on Narcan drip. Initial VBG showed acidemia and elevated pCO2, this was improved on a recheck of the VBG after improvement of his respiratory rate and effort following initiation of the Narcan drip. This was able to be titrated down somewhat although given the long half-life of Suboxone, there was concern the patient would require Narcan drip for many hours. Case discussed with the hospitalist team for additional evaluation and management. Consultation(s): 8448: DIscussed narcan drip with ED pharmacist. [id number]: DIscussed with Dr. Pederson, [place] hospitalist team, for additional evaluation and mgmt. ER Treatment Provided: See below 1458: Patient will now try to slowly answer questions however when he is not being stimulated, he is still quite somnolent and respiratory rate is between 6 and 8. 1500: Narcan drip started. Diagnostics Interpreted By Me: -ECG: Normal sinus at 60, normal axis, normal intervals, no acute ST/T wave changes -Cardiac Monitoring: An order was placed for continuous cardiac monitoring. The monitor shows a rate of 68 with normal sinus rhythm. -Laboratory studies: As stated above and show below. -Imaging studies: X-ray Chest: A single view study of the chest was reviewed and was negative for cardiomegaly, focal infiltrate, effusion, pulmonary edema, or wide mediastinum. Triage Nursing Note Reviewed Prior/Outside Records Reviewed Critical Care: Critical care of 52 min performed to assess and manage high likelihood of life-threatening accidental overdose with hypoventilation and ams, involving labs and imaging performed with assessment to evaluate overdose and ams diagnosis with frequent reassessment. This time includes bedside time, treatment discussions with patient/family/consultants, documentation time and excludes procedure time. Past Med/Surg History Problem List (Updated 05/19/25 @ 00:35 by Beverley Christine DO) Opioid overdose (Acute) Type 2 diabetes mellitus Hypoventilation (Acute) Unresponsive episode (Acute) Gangrene of toe of both feet Diabetic ulcer of left foot with fat layer exposed Diabetic ulcer of right foot with fat layer exposed Hypomagnesemia Hyponatremia Hyperglycemia due to type 2 diabetes mellitus (Acute) Hyperglycemia (Acute) APRIL (acute kidney injury) (Acute) Osteomyelitis of both feet (Acute) Osteomyelitis of foot, left, acute (Acute) Acute hyperglycemia (Acute) Degloving injury of foot (Acute) Loss of protective sensation of skin of deformed foot with peripheral vascular disease of foot Diabetic ulcer of left foot associated with diabetes mellitus due to underlying condition, limited to breakdown of skin Tear of skin of plantar aspect of foot Hypoglycemia (Acute) Failure of outpatient treatment (Acute) Osteomyelitis (Acute) Ulcerative colitis Acute osteomyelitis of toe of right foot Vocal cord anomaly Rheumatoid arthritis Head injury (Acute) Orthostatic hypotension (Acute) Type 2 diabetes mellitus with polyneuropathy (Acute) Diabetic ulcer of left foot associated with diabetes mellitus due to underlying condition, with necrosis of bone Cellulitis of foot, left (Acute) Right lower lobe pneumonia (Acute) SOB (shortness of breath) (Acute) Acute hyperkalemia (Acute) Orthostatic hypotension Recurrent syncope Surgical history unknown HTN (hypertension) (Chronic) Diabetes (Chronic) Hyperlipidemia (Chronic) CVA (cerebral infarction) (Acute 2016) Colitis Syncope (Acute 2016) Medical History APRIL (acute kidney injury) Diabetic foot ulcer CKD (chronic kidney disease) APRIL (acute kidney injury) Elevated troponin HHNC (hyperglycemic hyperosmolar nonketotic coma) Orthostatic hypotension (2016) Anemia Surgical History S/P craniotomy Family History Other Family history non-contributory Social History Smoking Status: Former smoker Tobacco Type: Cigarettes Age Started Using Tobacco: 13; packs per day: 0.5; Second Hand Exposure: No; Do You Dip or Chew Tobacco: No; Hx Alcohol Use: No Hx Substance Use: Yes Prescribed Medications: Marijuana Last Used Substance: Hours (ago) Last Used Substance Other:: >5 years ago Substance Use Type Other:: Suboxone Preferred Language: Egyptian Communication Ability: Effective Kettle Tender Required: No Beliefs That Will Affect Care: None marital status: Current Living Situation: Other Current Living Situation Comment: [facility] [facility] current occupational status: unemployed Feels Safe at Home: Yes Safety Concerns: Feels Safe At This Time Assistive Devices: Glasses Allergies Allergies Allergy/AdvReac Type Severity Reaction Status Date / Time No Known Allergies Allergy Verified 05/18/25 15:38 Home Meds Home Medications Medication Instructions Recorded Confirmed docusate sodium 100 mg tablet 100 mg PO BID PRN Constipation 10/18/20 05/18/25 etanercept 50 mg/mL (1 mL) 1 mg subcut WK 10/18/20 05/18/25 subcutaneous syringe (Enbrel) folic acid 1 mg tablet 1 mg PO DAILY 10/18/20 05/18/25 hydroxychloroquine 200 mg tablet 200 mg PO DAILY 10/18/20 05/18/25 nortriptyline 25 mg capsule 25 mg PO BID 10/18/20 05/18/25 amlodipine 10 mg tablet 10 mg PO DAILY 10/05/22 05/18/25 atorvastatin 10 mg tablet 10 mg PO DAILY 10/05/22 05/18/25 albuterol sulfate 90 mcg/actuation 2 puff inhalation QID PRN 03/12/23 05/18/25 aerosol inhaler Shortness Of Breath metformin 500 mg tablet 500 mg PO BID 09/09/24 05/18/25 valsartan 80 mg tablet 80 mg PO DAILY 09/09/24 05/18/25 furosemide 20 mg tablet 60 mg PO DAILY 11/04/24 05/18/25 aspirin 81 mg tablet,delayed 81 mg PO DAILY 05/18/25 05/18/25 release benzoyl peroxide 10 % topical 1 applic topical DAILY 05/18/25 05/18/25 cleanser bismuth subsalicylate 262 mg/15 mL 262 mg PO BID PRN Loose Stool 05/18/25 05/18/25 oral suspension (Pepto-Bismol) cholecalciferol (vitamin D3) 25 25 mcg PO DAILY 05/18/25 05/18/25 mcg (1,000 unit) capsule (Vitamin D3) clindamycin phosphate 1 % lotion 1 applic topical BID 05/18/25 05/18/25 (Cleocin T) ergocalciferol (vitamin D2) 1,250 1,250 mcg PO WK 05/18/25 05/18/25 mcg (50,000 unit) capsule glucose 3.75 gram chewable tablet 3.75 g PO . NEEDED PRN 05/18/25 05/18/25 Hypoglycemia insulin NPH isoph U-100 human 100 10 unit subcut QAM 05/18/25 05/18/25 unit/mL subcutaneous suspension (Novolin N NPH U-100 Insulin isophane) insulin glargine-yfgn 100 unit/mL 10 unit subcut BID 05/18/25 05/18/25 subcutaneous solution insulin regular human 100 unit/mL 10 unit subcut BIDM 05/18/25 05/18/25 injection solution (Novolin R Regular U-100 Insulin) mineral oil-hydrophil petrolat 1 applic topical BID PRN Dry Skin 05/18/25 05/18/25 topical ointment prednisone 10 mg tablet 0 mg PO UD 05/18/25 05/18/25 Results & Data (ED) Vital Signs Vital Signs - 24 hr 05/18/25 14:07 05/18/25 14:07 05/18/25 14:34 Pulse Rate 61 Pulse Rate [Apical] 61 Respiratory Rate 12 12 Respiratory Effort / Characteristics Blood Pressure 118/76 Blood Pressure [Left Arm] 118/76 Blood Pressure Mean 90 Blood Pressure Mean [Left Arm] 90 Blood Pressure Position [Left Arm] Pulse Oximetry 98 100 99 Oxygen Delivery Method Room Air Nasal Cannula Nasal Cannula Oxygen Flow Rate 2 2 Sepsis Recent Fever Within 48 Hours No Sepsis New/Unexplained Change in Mental Status N/A Sepsis Action Taken by Nursing No Action Required Oxygen Flow Rate - Titration 2 05/18/25 14:40 05/18/25 14:45 05/18/25 14:50 Pulse Rate Pulse Rate [Apical] Respiratory Rate Respiratory Effort / Characteristics Blood Pressure 155/102 H 169/80 H 183/96 H Blood Pressure [Left Arm] Blood Pressure Mean 133 117 135 Blood Pressure Mean [Left Arm] Blood Pressure Position [Left Arm] Pulse Oximetry Oxygen Delivery Method Oxygen Flow Rate Sepsis Recent Fever Within 48 Hours Sepsis New/Unexplained Change in Mental Status Sepsis Action Taken by Nursing Oxygen Flow Rate - Titration 05/18/25 14:55 05/18/25 15:01 05/18/25 15:05 Pulse Rate Pulse Rate [Apical] Respiratory Rate Respiratory Effort / Characteristics Blood Pressure 176/106 H 163/82 H 180/102 H Blood Pressure [Left Arm] Blood Pressure Mean 134 110 132 Blood Pressure Mean [Left Arm] Blood Pressure Position [Left Arm] Pulse Oximetry Oxygen Delivery Method Oxygen Flow Rate Sepsis Recent Fever Within 48 Hours Sepsis New/Unexplained Change in Mental Status Sepsis Action Taken by Nursing Oxygen Flow Rate - Titration 05/18/25 15:08 05/18/25 15:15 05/18/25 15:16 Pulse Rate 58 L Pulse Rate [Apical] 62 Respiratory Rate 6 L Respiratory Effort / Characteristics Spontaneous Blood Pressure 184/100 H Blood Pressure [Left Arm] 180/102 H Blood Pressure Mean 126 Blood Pressure Mean [Left Arm] 128 Blood Pressure Position [Left Arm] Pulse Oximetry 100 Oxygen Delivery Method Nasal Cannula Oxygen Flow Rate 2 Sepsis Recent Fever Within 48 Hours Sepsis New/Unexplained Change in Mental Status Sepsis Action Taken by Nursing Oxygen Flow Rate - Titration 05/18/25 15:25 05/18/25 15:31 05/18/25 15:36 Pulse Rate 65 66 Pulse Rate [Apical] 65 Respiratory Rate 14 12 16 Respiratory Effort / Characteristics Blood Pressure 179/103 H 146/104 H Blood Pressure [Left Arm] 184/104 H Blood Pressure Mean 109 109 Blood Pressure Mean [Left Arm] 130 Blood Pressure Position [Left Arm] Lying Pulse Oximetry 100 100 97 Oxygen Delivery Method Nasal Cannula Nasal Cannula Nasal Cannula Oxygen Flow Rate 2 2 2 Sepsis Recent Fever Within 48 Hours Sepsis New/Unexplained Change in Mental Status Sepsis Action Taken by Nursing Oxygen Flow Rate - Titration 05/18/25 15:42 05/18/25 15:45 05/18/25 15:50 Pulse Rate 64 Pulse Rate [Apical] 64 64 Respiratory Rate 14 10 L 12 Respiratory Effort / Characteristics Blood Pressure 163/108 H Blood Pressure [Left Arm] 163/83 H Blood Pressure Mean 120 Blood Pressure Mean [Left Arm] 109 Blood Pressure Position [Left Arm] Lying Pulse Oximetry 100 99 98 Oxygen Delivery Method Nasal Cannula Nasal Cannula Nasal Cannula Oxygen Flow Rate 2 2 2 Sepsis Recent Fever Within 48 Hours Sepsis New/Unexplained Change in Mental Status Sepsis Action Taken by Nursing Oxygen Flow Rate - Titration 05/18/25 15:50 05/18/25 16:00 05/18/25 16:15 Pulse Rate 64 65 66 Pulse Rate [Apical] Respiratory Rate 10 L 10 L 12 Respiratory Effort / Characteristics Blood Pressure 183/96 H 189/101 H 185/98 H Blood Pressure [Left Arm] Blood Pressure Mean 146 133 140 Blood Pressure Mean [Left Arm] Blood Pressure Position [Left Arm] Pulse Oximetry 99 98 Oxygen Delivery Method Nasal Cannula Nasal Cannula Oxygen Flow Rate 2 2 Sepsis Recent Fever Within 48 Hours Sepsis New/Unexplained Change in Mental Status Sepsis Action Taken by Nursing Oxygen Flow Rate - Titration 05/18/25 16:15 05/18/25 16:30 05/18/25 16:45 Pulse Rate 65 66 64 Pulse Rate [Apical] Respiratory Rate 12 10 L 10 L Respiratory Effort / Characteristics Blood Pressure 185/98 H 166/91 H 176/88 H Blood Pressure [Left Arm] Blood Pressure Mean 140 116 114 Blood Pressure Mean [Left Arm] Blood Pressure Position [Left Arm] Pulse Oximetry 100 99 100 Oxygen Delivery Method Nasal Cannula Nasal Cannula Nasal Cannula Oxygen Flow Rate 2 2 2 Sepsis Recent Fever Within 48 Hours Sepsis New/Unexplained Change in Mental Status Sepsis Action Taken by Nursing Oxygen Flow Rate - Titration 05/18/25 17:00 05/18/25 17:15 05/18/25 17:30 Pulse Rate 70 70 67 Pulse Rate [Apical] Respiratory Rate 14 10 L 11 L Respiratory Effort / Characteristics Blood Pressure 157/89 H 173/98 H 162/97 H Blood Pressure [Left Arm] Blood Pressure Mean 136 143 126 Blood Pressure Mean [Left Arm] Blood Pressure Position [Left Arm] Pulse Oximetry 100 100 100 Oxygen Delivery Method Nasal Cannula Nasal Cannula Nasal Cannula Oxygen Flow Rate 2 2 2 Sepsis Recent Fever Within 48 Hours Sepsis New/Unexplained Change in Mental Status Sepsis Action Taken by Nursing Oxygen Flow Rate - Titration 05/18/25 17:30 05/18/25 17:45 Pulse Rate 66 72 Pulse Rate [Apical] Respiratory Rate 12 11 L Respiratory Effort / Characteristics Blood Pressure 162/97 H 175/94 H Blood Pressure [Left Arm] Blood Pressure Mean 126 130 Blood Pressure Mean [Left Arm] Blood Pressure Position [Left Arm] Pulse Oximetry 100 100 Oxygen Delivery Method Nasal Cannula Nasal Cannula Oxygen Flow Rate 2 2 Sepsis Recent Fever Within 48 Hours Sepsis New/Unexplained Change in Mental Status Sepsis Action Taken by Nursing Oxygen Flow Rate - Titration Laboratory Data 05/18/25 14:13 05/18/25 14:13 Lab Results 05/18/25 05/18/25 05/18/25 Range/Units 14:12 14:13 14:20 WBC 6.86 (4.8-10.8) K/ul RBC 4.10 L (4.70-6.10) M/uL Hgb 11.5 L (14.0-18.0) g/dl POC Hgb 12.2 L 12.2 L (14.0-18.0) g/dl Hct 35.6 L (42.0-52.0) % POC Hct 36 L 36 L (42-52) % MCV 86.8 (80.0-100.0) fL MCH 28.0 (25.0-34.0) pg MCHC 32.3 (32.0-36.0) g/dL RDW Std Deviation 43.8 (36.4-46.3) fL RDW Coeff of Vidal 14.0 (11.5-14.5) % Plt Count 253 (130-400) K/uL MPV 10.7 (9.4-12.4) fL Immature Gran % (Auto) 0.4 % Neut % (Auto) 64.6 % Lymph % (Auto) 21.7 % [place] % (Auto) 10.1 % Eos % (Auto) 2.8 % Baso % (Auto) 0.4 % Neut # (Auto) 4.43 (1.40-6.50) K/uL Lymph # (Auto) 1.49 (1.20-3.40) K/uL [place] # (Auto) 0.69 H (0.11-0.59) K/uL Eos # (Auto) 0.19 (0.00-0.50) K/uL Baso # (Auto) 0.03 (0.00-0.20) K/uL Immature Gran # (Auto) 0.03 (0.01-0.20) K/uL PT 10.5 (9.0-12.0) Seconds INR 1.0 (0.9-1.1) Specimen Type ELENA Sample Site Heel Stick POC pH 7.24 L (7.35-7.45) POC pCO2 68 H (35-46) mmHg POC pO2 33 L (80-95) mmHg POC HCO3 29 H (19-24) demetrice/L POC Base Excess 2.0 H (-9-1.8) demetrice/L O2 Sat Pulse Oximetry 100 ABG pH (Temp Correct) 7.239 L (7.35-7.45) ABG pCO2 (Temp Corrct 68 H (35-46) mmHg POC ABG pO2 at Pt Temp 33 POC ABG O2 Sat 51.0 L (90-95) % Valentin Test NA VBG pH (7.36-7.41) VBG pCO2 (38-50) mmHg VBG pO2 mmHg VBG HCO3 mmol/L VBG O2 Saturation % VBG Base Excess mEq/L O2 Delivery Device Cannula End Tidal CO2 47 POC Sodium 137 137 (135-144) mmol/L Sodium 133 L (136-145) mmol/L POC Potassium 4.8 4.7 (3.3-5.0) mmol/L Potassium 4.7 (3.5-5.1) mmol/L POC Chloride 100 L (101-112) mmol/L Chloride 101 (98-107) mmol/L Carbon Dioxide 30 (21-32) mmol/L POC Total CO2 27 31 (24-31) mmol/L Anion Gap 2 L (3-11) POC Anion Gap 16.0 (16-25) mmol/L POC BUN 38 H (7-18) mg/dl BUN 41 H (6-23) mg/dl Creatinine 1.82 H (0.6-1.4) mg/dl POC Creatinine 1.8 H (0.6-1.3) mg/dl Est Cr Clr Drug Dosing Not Reportable eGFR 38.98 BUN/Creatinine Ratio 22.5 H (10-20) Glucose 225 H (70-99(Fasting)) mg/dl POC Glucose (other) 218 H (70-99) mg/dl Calcium 9.0 (8.6-10.3) mg/dl POC Ioniz Calcium Cailin 1.23 (1.12-1.32) mmol/l Magnesium 2.2 (1.7-2.4) mg/dl Total Bilirubin 0.3 (0.2-1.0) mg/dl AST 28 (13-39) U/L ALT 33 (7-52) U/L Alkaline Phosphatase 75 (34-104) U/L Troponin I High Sens 7.0 (0-20) pg/ml Total Protein 7.9 (6.0-8.3) gm/dl Albumin 3.4 (3.4-5.0) gm/dl Globulin 4.5 H (2.5-4.0) gm/dl Albumin/Globulin Ratio 0.8 L (0.9-2) Lipase 23 (11-82) U/L TSH 3.734 (0.300-4.500) uIu/ml Urine Color Urine Appearance (Clear) Urine pH (4.5-7.5) Ur Specific [place] (1.000-1.030) Urine Protein (Negative) Urine Glucose (UA) (Negative) Urine Ketones (Negative) Urine Blood (Negative) Urine Nitrite (Negative) Urine Bilirubin (Negative) Urine Urobilinogen (Negative) Ur Leukocyte Esterase (Negative) Urine WBC (Auto) (0-5) /hpf Urine RBC (Auto) (0-2) /hpf U Hyaline Cast (Auto) (0-2) /lpf U Epithel Cells (Auto) (0-2) /hpf Urine Bacteria (Auto) (None Seen) Urine Comment Urine Opiates Screen (Neg) Ur Methadone, Qual (Neg) Urine Fentanyl Screen (Neg) Urine Barbiturates (Neg) Ur Phencyclidine (PCP) (Neg) U Amphetamin/Meth Scrn (Neg) MDMA (Ecstasy) Screen (Neg) U Benzodiazepines Scrn (Neg) Ur Cocaine Metabolite (Neg) U Marijuana (THC) Screen (Neg) 05/18/25 05/18/25 Range/Units 15:04 17:20 WBC (4.8-10.8) K/ul RBC (4.70-6.10) M/uL Hgb (14.0-18.0) g/dl POC Hgb (14.0-18.0) g/dl Hct (42.0-52.0) % POC Hct (42-52) % MCV (80.0-100.0) fL MCH (25.0-34.0) pg MCHC (32.0-36.0) g/dL RDW Std Deviation (36.4-46.3) fL RDW Coeff of Vidal (11.5-14.5) % Plt Count (130-400) K/uL MPV (9.4-12.4) fL Immature Gran % (Auto) % Neut % (Auto) % Lymph % (Auto) % [place] % (Auto) % Eos % (Auto) % Baso % (Auto) % Neut # (Auto) (1.40-6.50) K/uL Lymph # (Auto) (1.20-3.40) K/uL [place] # (Auto) (0.11-0.59) K/uL Eos # (Auto) (0.00-0.50) K/uL Baso # (Auto) (0.00-0.20) K/uL Immature Gran # (Auto) (0.01-0.20) K/uL PT (9.0-12.0) Seconds INR (0.9-1.1) Specimen Type Sample Site POC pH (7.35-7.45) POC pCO2 (35-46) mmHg POC pO2 (80-95) mmHg POC HCO3 (19-24) demetrice/L POC Base Excess (-9-1.8) demetrice/L O2 Sat Pulse Oximetry ABG pH (Temp Correct) (7.35-7.45) ABG pCO2 (Temp Corrct (35-46) mmHg POC ABG pO2 at Pt Temp POC ABG O2 Sat (90-95) % Valentin Test VBG pH 7.31 L (7.36-7.41) VBG pCO2 56 H (38-50) mmHg VBG pO2 45 mmHg VBG HCO3 28 mmol/L VBG O2 Saturation 77.1 % VBG Base Excess 0.8 mEq/L O2 Delivery Device End Tidal CO2 POC Sodium (135-144) mmol/L Sodium (136-145) mmol/L POC Potassium (3.3-5.0) mmol/L Potassium (3.5-5.1) mmol/L POC Chloride (101-112) mmol/L Chloride (98-107) mmol/L Carbon Dioxide (21-32) mmol/L POC Total CO2 (24-31) mmol/L Anion Gap (3-11) POC Anion Gap (16-25) mmol/L POC BUN (7-18) mg/dl BUN (6-23) mg/dl Creatinine (0.6-1.4) mg/dl POC Creatinine (0.6-1.3) mg/dl Est Cr Clr Drug Dosing eGFR BUN/Creatinine Ratio (10-20) Glucose (70-99(Fasting)) mg/dl POC Glucose (other) (70-99) mg/dl Calcium (8.6-10.3) mg/dl POC Ioniz Calcium Cailin (1.12-1.32) mmol/l Magnesium (1.7-2.4) mg/dl Total Bilirubin (0.2-1.0) mg/dl AST (13-39) U/L ALT (7-52) U/L Alkaline Phosphatase (34-104) U/L Troponin I High Sens (0-20) pg/ml Total Protein (6.0-8.3) gm/dl Albumin (3.4-5.0) gm/dl Globulin (2.5-4.0) gm/dl Albumin/Globulin Ratio (0.9-2) Lipase (11-82) U/L TSH (0.300-4.500) uIu/ml Urine Color Yellow Urine Appearance Clear (Clear) Urine pH 6.0 (4.5-7.5) Ur Specific [place] 1.024 (1.000-1.030) Urine Protein 2+ H (Negative) Urine Glucose (UA) 3+ H (Negative) Urine Ketones Negative (Negative) Urine Blood Negative (Negative) Urine Nitrite Negative (Negative) Urine Bilirubin Negative (Negative) Urine Urobilinogen Negative (Negative) Ur Leukocyte Esterase Negative (Negative) Urine WBC (Auto) 0-5 (0-5) /hpf Urine RBC (Auto) 0-2 (0-2) /hpf U Hyaline Cast (Auto) 0-2 (0-2) /lpf U Epithel Cells (Auto) 0-2 (0-2) /hpf Urine Bacteria (Auto) None Seen (None Seen) Urine Comment Urine Opiates Screen Neg (Neg) Ur Methadone, Qual Neg (Neg) Urine Fentanyl Screen Neg (Neg) Urine Barbiturates Neg (Neg) Ur Phencyclidine (PCP) Neg (Neg) U Amphetamin/Meth Scrn Neg (Neg) MDMA (Ecstasy) Screen Neg (Neg) U Benzodiazepines Scrn Neg (Neg) Ur Cocaine Metabolite Neg (Neg) U Marijuana (THC) Screen Neg (Neg) Administered Medications Dextrose (Dextrose 50% 50 Ml Syringe) 25 - 50 ml IV UD PRN; Protocol PRN Reason: Hypoglycemia Protocol Stop: 06/17/25 19:45 Last Admin: 05/18/25 20:02 Dose: 50 ml Documented By: CAROLINE Heparin Sodium (Porcine) (Heparin Sod 5,000 Unit/0.5 Ml Vial) 5,000 units SQ Q12 [facility] Stop: 06/17/25 20:59 Last Admin: 05/18/25 20:53 Dose: 5,000 units Documented By: JOYCE Naloxone HCl 5 mg/ Sodium (Chloride) 100 mls @ 40 mls/hr IV .Q2H30M REINA; Protocol Stop: 06/17/25 14:59 Last Titration: 05/18/25 21:01 Dose: Infused Documented By: Admin: 05/18/25 20:09 Dose: 2 mg/hr, 40 mls/hr Documented By: JOYCE Co-signed By: CAROLINE Titration: 05/18/25 20:09 Dose: Infused Documented By: JOYCE Co-signed By: CAROLINE Admin: 05/18/25 18:57 Dose: 4 mg/hr, 80 mls/hr Documented By: QGV Co-signed By: SALVADOR Titration: 05/18/25 18:44 Dose: Infused Documented By: QGV Co-signed By: SALVADOR Admin: 05/18/25 17:29 Dose: 4 mg/hr, 80 mls/hr Documented By: QGV Co-signed By: RANI Titration: 05/18/25 17:22 Dose: Infused Documented By: QGV Co-signed By: RANI Titration: 05/18/25 16:07 Dose: Infused Documented By: CTK Co-signed By: QGV Admin: 05/18/25 16:07 Dose: 4 mg/hr, 80 mls/hr Documented By: CTK Co-signed By: QGV Admin: 05/18/25 15:39 Dose: 6 mg/hr, 120 mls/hr Documented By: QGV Co-signed By: MALKA Titration: 05/18/25 15:39 Dose: Infused Documented By: QGV Co-signed By: ASW Admin: 05/18/25 15:17 Dose: 8 mg/hr, 160 mls/hr Documented By: QGV Co-signed By: DANIKA Insulin Aspart (Insulin Aspart Per Unit Charge) 0 units SC ACHS REINA Stop: 06/17/25 20:59 Last Admin: 05/18/25 20:43 Dose: Not Given Documented By: JOYCE Discontinued Medications Sodium Chloride (Nss) 1,000 mls @ 125 mls/hr IV .Q8H REINA Stop: 05/21/25 14:14 Last Infusion: 05/18/25 20:41 Dose: Infused Documented By: Admin: 05/18/25 14:38 Dose: 125 mls/hr Documented By: AVZahida Sodium Chloride (Nss) 1,000 mls @ 80 mls/hr IV .[id number] REINA Stop: 05/21/25 19:45 Last Admin: 05/18/25 20:43 Dose: Not Given Documented By: JOYCE Ioversol (Optiray 320 125ml) 117 ml IV ONCE ONE Stop: 05/18/25 14:29 Last Admin: 05/18/25 14:28 Dose: 117 ml Documented By: SIERRA Labetalol HCl (Labetalol Hcl Iv 5 Mg/Ml 20ml) 10 mg IV NOW STA Stop: 05/18/25 21:29 Last Admin: 05/18/25 21:35 Dose: 10 mg Documented By: JOYCE Naloxone HCl (Naloxone Hcl Inj 1 Mg/Ml 2ml Syr) Confirm Administered Dose 4 mg INTNAS .STK-MED ONE Stop: 05/18/25 14:01 Last Admin: 05/18/25 14:39 Dose: Not Given Documented By: HANNAH Naloxone HCl (Naloxone Hcl 0.4 Mg/1 Ml Vial/Carp) 2 mg IV NOW STA Stop: 05/18/25 14:11 Last Admin: 05/18/25 14:22 Dose: 2 mg Documented By: HANNAH Naloxone HCl (Naloxone Hcl 0.4 Mg/1 Ml Vial/Carp) 2 mg IV NOW STA Stop: 05/18/25 14:20 Last Admin: 05/18/25 14:13 Dose: 2 mg Documented By: HANNAH Imaging Data Radiologist's Impression: Chest X-Ray 05/18/25 14:08 Chest radiograph, one view History: AMS Comparison: 08/17/2024 Findings: Single AP view of the chest performed. No focal consolidation or pleural effusion. No pneumothorax. The cardiomediastinal silhouette is within normal limits. Indistinct pulmonary vascularity. Mild perihilar opacity. Yeah no evidence for lymphadenopathy. No visualized bony or soft tissue abnormality. Impression: Mild perihilar opacity Electronically signed by Surinder Ashley 05-18-2025 3:[address] 05/18/25 14:08 EXAMINATION: Head CT without CLINICAL HISTORY: Altered mental status, unresponsive. History of stroke. PRIORS: None TECHNIQUE: Contiguous axial images were obtained through the head without the use of intravenous contrast. Sagittal and coronal reformations are supplied. FINDINGS: Significant motion artifact noted diminishing image quality. Left craniotomy present with surgical clips creating beam hardening artifact. Mild to moderate parenchymal volume loss noted. Scattered heterogeneous lucency present in the periventricular white matter, likely small vessel occlusive disease. 8 left lacunar infarction with a chronic appearance present, basal ganglia, image 16, series 2. Flores-white differentiation is preserved. No edema or midline shift. No intra-axial or extra-axial hemorrhage. Ventricles are normal in size and configuration. Brainstem and cerebellum have a normal appearance. Calvarium unremarkable. Paranasal sinuses and mastoid air cells are well-pneumatized. Globes are intact. No retrobulbar abnormality. IMPRESSION: 1. No CT evidence of an acute intracranial abnormality. If clinical concern warrants, brain MRI is suggested as it is more sensitive and specific for acute to subacute infarction. 2. Chronic changes noted above. Electronically signed by Shira Lundberg 05-18-2025 2:52 PM Head CTA 05/18/25 14:19 EXAM: CTA head with CLINICAL HISTORY: Altered mental status, unresponsive TECHNIQUE: Contiguous CTA axial images were obtained through the head after the administration of intravenous contrast. Sagittal and coronal reformations are supplied. PRIORS: None FINDINGS: The vertebral arteries form the basilar artery at the skull base. [place] is patent. No thrombus or hemodynamically significant stenosis. No aneurysmal dilatation or adamson aneurysm. Mild calcified atherosclerotic disease of the internal carotid arteries in the cavernous sinuses noticed. No enhancing mass in the brain. IMPRESSION: No CTA evidence of an acute vascular abnormality. Electronically signed by Shira Lundberg 05-18-2025 2:52 PM Neck CTA 05/18/25 14:19 EXAM: CT angio neck with con CLINICAL HISTORY: Unresponsive TECHNIQUE: Contiguous CTA axial images were obtained through the neck with the administration of intravenous contrast. Sagittal and coronal reformations are supplied. MIPS are supplied. COMPARISON: None FINDINGS: Motion artifact degrades image quality. Left-sided aortic arch is present. Mild atherosclerotic disease in the carotid bulbs and proximal internal carotid arteries. No hemodynamically significant stenosis or thrombus. The internal carotid arteries into the petrous portion of the skull base normally. Vertebral arteries are bilaterally symmetric. No occlusion. Both contribute to the basilar artery at the skull base. IMPRESSION: No CTA evidence of an acute arterial abnormality in the neck. Electronically signed by Shira Lundberg 05-18-2025 2:52 PM Discharge Plan Visit Data Chief Complaint: Unresponsive ED Provider: Beverley Christine Discharge Problem: Unresponsive episode, Hypoventilation, Hyperglycemia due to type 2 diabetes mellitus, Opioid overdose Patient Disposition: Being Evaluated by Hospitalist Condition: Critical
[2025-05-18 15:39] LABS: Appearance Urine Clear (Clear); Bacteria Urine Automated None Seen (None Seen); Cast Urine Automated 0-2 /lpf (0-2); Epithelial Cell Urine Auto 0-2 /hpf (0-2); Glucose Urine UA 3+ (Negative); RBC Urine Automated 0-2 /hpf (0-2); WBC Urine Automated 0-5 /hpf (0-5)
--- NOTE | 2025-05-18 15:41 | XRay Report ---
Chest radiograph, one view History: AMS Comparison: 08/17/2024 Findings: Single AP view of the chest performed. No focal consolidation or pleural effusion. No pneumothorax. The cardiomediastinal silhouette is within normal limits. Indistinct pulmonary vascularity. Mild perihilar opacity. Yeah no evidence for lymphadenopathy. No visualized bony or soft tissue abnormality. Impression: Mild perihilar opacity Electronically signed by Surinder Ashley 05-18-2025 3:41 PM
[2025-05-18 15:52] LABS: Amphetamines+Metham, Urine Neg (Neg); MDMA (Ecstacy), Urine Neg (Neg); Marijuana, Urine Neg (Neg)
[2025-05-18 17:31] LABS: Base Excess VBG 0.8 mEq/L; HCO3 VBG 28 mmol/L; Oxygen Saturation VBG 77.1 %; PCO2 VBG 56 mmHg (38-50); PO2 VBG 45 mmHg; pH VBG 7.31 (7.36-7.41)
--- NOTE | 2025-05-18 18:03 | History & Physical Report ---
Date of Service May 18, 2025 Assessment & Plan (1) Unresponsive episode: Plan: Thought to be induced by illicit Suboxone usage. He was given multiple doses of Narcan and now is on a continuous Narcan infusion. Fortunately he has avoided intubation and is now alert and oriented at the time of my examination. Since he remains on a Narcan drip, he will be placed in the intensive care unit. (2) Hypoventilation: Plan: He presented with respiratory depression due to illicit Suboxone usage. Fortunately he has avoided intubation and is now alert on a Narcan continuous infusion. (3) HTN (hypertension): Plan: Treated with amlodipine and valsartan. Blood pressure is currently mildly elevated. Will follow (4) Rheumatoid arthritis: Plan: He takes hydroxychloroquine daily and Enbrel subcutaneously weekly (5) Type 2 diabetes mellitus: Plan: Sliding scale coverage for now. Metformin is on hold. Both Lantus and NPH are listed on his medications. Uncertain what he actually takes at the present. This will need clarification Plan Eventual return to the [facility] in the next 2 to 3 days. History of Present Illness Chief Complaint: Suspected Suboxone intake with resultant respiratory depression and acute toxic encephalopathy Primary Care Provider: [facility] 70-year-old black male who apparently took Suboxone from another prisoner and subsequently became unresponsive with respiratory depression. He was given intranasal Narcan at the [facility] and EMS was summoned. He again received Narcan by the intravenous route per EMS and transiently regained consciousness in the ED then was started on Narcan continuous infusion drip at 4 mg/h. At the time of my examination the patient is awake and able to converse. He appears to be oriented. Blood pressure is mildly elevated and vital signs are currently stable. EKG reveals normal sinus rhythm with no acute changes. Head CT scan reveals chronic changes with old lacunar infarct. Since he is on a Narcan infusion, he will be placed in the intensive care unit. Allergies Allergy/AdvReac Type Severity Reaction Status Date / Time No Known Allergies Allergy Verified 05/18/25 15:38 Home Medications Medication Instructions Recorded Confirmed Type docusate sodium 100 mg tablet 100 mg PO BID PRN Constipation 10/18/20 05/18/25 History etanercept 50 mg/mL (1 mL) 1 mg subcut WK 10/18/20 05/18/25 History subcutaneous syringe (Enbrel) folic acid 1 mg tablet 1 mg PO DAILY 10/18/20 05/18/25 History hydroxychloroquine 200 mg tablet 200 mg PO DAILY 10/18/20 05/18/25 History nortriptyline 25 mg capsule 25 mg PO BID 10/18/20 05/18/25 History amlodipine 10 mg tablet 10 mg PO DAILY 10/05/22 05/18/25 History atorvastatin 10 mg tablet 10 mg PO DAILY 10/05/22 05/18/25 History albuterol sulfate 90 mcg/actuation 2 puff inhalation QID PRN 03/12/23 05/18/25 History aerosol inhaler Shortness Of Breath metformin 500 mg tablet 500 mg PO BID 09/09/24 05/18/25 History valsartan 80 mg tablet 80 mg PO DAILY 09/09/24 05/18/25 History furosemide 20 mg tablet 60 mg PO DAILY 11/04/24 05/18/25 History aspirin 81 mg tablet,delayed 81 mg PO DAILY 05/18/25 05/18/25 History release benzoyl peroxide 10 % topical 1 applic topical DAILY 05/18/25 05/18/25 History cleanser bismuth subsalicylate 262 mg/15 mL 262 mg PO BID PRN Loose Stool 05/18/25 05/18/25 History oral suspension (Pepto-Bismol) cholecalciferol (vitamin D3) 25 25 mcg PO DAILY 05/18/25 05/18/25 History mcg (1,000 unit) capsule (Vitamin D3) clindamycin phosphate 1 % lotion 1 applic topical BID 05/18/25 05/18/25 History (Cleocin T) ergocalciferol (vitamin D2) 1,250 1,250 mcg PO WK 05/18/25 05/18/25 History mcg (50,000 unit) capsule glucose 3.75 gram chewable tablet 3.75 g PO . NEEDED PRN 05/18/25 05/18/25 History Hypoglycemia insulin NPH isoph U-100 human 100 10 unit subcut QAM 05/18/25 05/18/25 History unit/mL subcutaneous suspension (Novolin N NPH U-100 Insulin isophane) insulin glargine-yfgn 100 unit/mL 10 unit subcut BID 05/18/25 05/18/25 History subcutaneous solution insulin regular human 100 unit/mL 10 unit subcut BIDM 05/18/25 05/18/25 History injection solution (Novolin R Regular U-100 Insulin) mineral oil-hydrophil petrolat 1 applic topical BID PRN Dry Skin 05/18/25 05/18/25 History topical ointment prednisone 10 mg tablet 0 mg PO UD 05/18/25 05/18/25 History Past Med/Surg History Problem List (Updated 05/18/25 @ 18:01 by David Pederson MD) Type 2 diabetes mellitus Hypoventilation (Acute) Unresponsive episode (Acute) Gangrene of toe of both feet Diabetic ulcer of left foot with fat layer exposed Diabetic ulcer of right foot with fat layer exposed Hypomagnesemia Hyponatremia Hyperglycemia due to type 2 diabetes mellitus Hyperglycemia (Acute) APRIL (acute kidney injury) (Acute) Osteomyelitis of both feet (Acute) Osteomyelitis of foot, left, acute (Acute) Acute hyperglycemia (Acute) Degloving injury of foot (Acute) Loss of protective sensation of skin of deformed foot with peripheral vascular disease of foot Diabetic ulcer of left foot associated with diabetes mellitus due to underlying condition, limited to breakdown of skin Tear of skin of plantar aspect of foot Hypoglycemia (Acute) Failure of outpatient treatment (Acute) Osteomyelitis (Acute) Ulcerative colitis Acute osteomyelitis of toe of right foot Vocal cord anomaly Rheumatoid arthritis Head injury (Acute) Orthostatic hypotension (Acute) Type 2 diabetes mellitus with polyneuropathy (Acute) Diabetic ulcer of left foot associated with diabetes mellitus due to underlying condition, with necrosis of bone Cellulitis of foot, left (Acute) Right lower lobe pneumonia (Acute) SOB (shortness of breath) (Acute) Acute hyperkalemia (Acute) Orthostatic hypotension Recurrent syncope Surgical history unknown HTN (hypertension) (Chronic) Diabetes (Chronic) Hyperlipidemia (Chronic) CVA (cerebral infarction) (Acute 2016) Colitis Syncope (Acute 2016) Medical History APRIL (acute kidney injury) Diabetic foot ulcer CKD (chronic kidney disease) APRIL (acute kidney injury) Elevated troponin HHNC (hyperglycemic hyperosmolar nonketotic coma) Orthostatic hypotension (2016) Anemia Surgical History S/P craniotomy Family History Other Family history non-contributory Social History Smoking Status: Current every day smoker Tobacco Type: Cigarettes Age Started Using Tobacco: 13; packs per day: 0.5; Second Hand Exposure: No; Do You Dip or Chew Tobacco: No; Hx Alcohol Use: No Hx Substance Use: Yes Prescribed Medications: Marijuana Last Used Substance: Unknown Last Used Substance Other:: >5 years ago Substance Use Type Other:: K2 Preferred Language: Cambodian Communication Ability: Effective Booking Prizer Required: No Beliefs That Will Affect Care: None marital status: Current Living Situation: Other Current Living Situation Comment: [facility] current occupational status: unemployed Feels Safe at Home: Yes Assistive Devices: Glasses Review of Systems 2 Review of Systems: Constitutionalno fever or chills ENTno blurred vision, no double vision, no epistaxis, no sore throat Respiratoryno cough, no wheezing, no shortness of breath Cardiacno palpitations, no chest pain, no syncope Eliazar nausea, vomiting, diarrhea, melena, hematochezia GUno urinary retention, no urinary incontinence, no dysuria, no hematuria Musculoskeletalno joint pain, no muscle tenderness Skinno bruising, no rashes, no pruritus Neurono isolated weakness, no paresthesia, no weakness Psychno depression, no anxiety Physical Exam 2 Physical Exam: General-alert and oriented x3, no fever, no chills HEENT-head atraumatic and normocephalic, pupils equal and reactive to light, extraocular muscles intact Neck-no lymphadenopathy or thyromegaly, trachea midline Chest-clear to auscultation. No rales, wheezing or rhonchi Cardiac-regular rate and rhythm, normal S1 and S2 Abdomen-normal bowel sounds, no hepatosplenomegaly Extremities-no cyanosis, clubbing, or edema Neuro-cranial nerves II through XII intact, motor and sensory function within normal limits, strength symmetrical, no focal deficits Psych-normal affect, normal mood Results & Data Results & Data Vital Signs (Past 12 Hours) Vital Signs Pulse Pulse Resp BP BP Pulse Ox O2 Del Method 05/18/25 17:30 67 11 L 162/97 H 100 Nasal Cannula 05/18/25 17:15 70 10 L 173/98 H 100 Nasal Cannula 05/18/25 17:00 70 14 157/89 H 100 Nasal Cannula 05/18/25 16:45 64 10 L 176/88 H 100 Nasal Cannula 05/18/25 16:30 66 10 L 166/91 H 99 Nasal Cannula 05/18/25 16:15 65 12 185/98 H 100 Nasal Cannula 05/18/25 16:15 66 12 185/98 H 05/18/25 16:00 65 10 L 189/101 H 98 Nasal Cannula 05/18/25 15:50 64 10 L 183/96 H 99 Nasal Cannula 05/18/25 15:50 64 12 98 Nasal Cannula 05/18/25 15:45 64 10 L 163/108 H 99 Nasal Cannula 05/18/25 15:42 64 14 163/83 H 100 Nasal Cannula 05/18/25 15:36 65 16 184/104 H 97 Nasal Cannula 05/18/25 15:31 66 12 146/104 H 100 Nasal Cannula 05/18/25 15:25 65 14 179/103 H 100 Nasal Cannula 05/18/25 15:16 58 L 05/18/25 15:15 184/100 H 05/18/25 15:08 62 6 L 180/102 H 100 Nasal Cannula 05/18/25 15:05 180/102 H 05/18/25 15:01 163/82 H 05/18/25 14:55 176/106 H 05/18/25 14:50 183/96 H 05/18/25 14:45 169/80 H 05/18/25 14:40 155/102 H 05/18/25 14:34 99 Nasal Cannula 05/18/25 14:07 61 12 118/76 100 Nasal Cannula 05/18/25 14:07 61 12 118/76 98 Room Air O2 Flow Rate 05/18/25 17:30 2 05/18/25 17:15 2 05/18/25 17:00 2 05/18/25 16:45 2 05/18/25 16:30 2 05/18/25 16:15 2 05/18/25 16:15 05/18/25 16:00 2 05/18/25 15:50 2 05/18/25 15:50 2 05/18/25 15:45 2 05/18/25 15:42 2 05/18/25 15:36 2 05/18/25 15:31 2 05/18/25 15:25 2 05/18/25 15:16 05/18/25 15:15 05/18/25 15:08 2 05/18/25 15:05 05/18/25 15:01 05/18/25 14:55 05/18/25 14:50 05/18/25 14:45 05/18/25 14:40 05/18/25 14:34 2 05/18/25 14:07 2 05/18/25 14:07 Laboratory Results 05/18/25 14:13 05/18/25 14:13 Code Status & VTE Plan Code Status Full code PG Care Time/CCT Total # of Minutes Spent Total Time Spent with Patient: Total time spent is greater than 50% in coordination of care (as documented) at patient's floor/unit and/or counseling patient: Coding Level of Care Code 87327 INT INP/OBS CARE 3/75MIN Diagnoses Unresponsive episode R40.4 Hypoventilation R06.89 HTN (hypertension) I10 Hypertension type: unspecified Rheumatoid arthritis M06.9 Type 2 diabetes mellitus E11.9 (3) HTN (hypertension) Hypertension type: unspecified Qualified Code(s): I10 - Essential (primary) hypertension
[2025-05-18] MEDS ORDERED: GLUCAGON FOR INJ 1 MG VIAL SQ PRN (19:46)
[2025-05-18] MEDS ORDERED: GLUCOSE 40% GEL 15 GM TUBE PO PRN (19:46)
[2025-05-18] MEDS ORDERED: CARBOHYDRATES FOR HYPOGLYCEMIA PO PRN (19:46)
[2025-05-18] MEDS ORDERED: ONDANSETRON INJ 2 MG/ML 2 ML VIAL IV PRN (19:46)
[2025-05-18] MEDS ORDERED: GLUCOSE 10 TAB/TUBE PO PRN (19:46)
[2025-05-18] MEDS ORDERED: ALBUTEROL HFA 8 GM INHALER INH PRN (19:46)
[2025-05-18 19:49] VITALS: TEMP 97.5
--- NOTE | 2025-05-18 20:00 | Critical Care Consultation ---
Date of Consultation May 18, 2025 Assessment & Plan (1) Type 2 diabetes mellitus: (2) Hypoventilation: (3) Unresponsive episode: (4) Opioid overdose: Plan Reason Critically Ill: 1. Unintentional opioid overdose with respiratory depression 2. 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 ARB held with APRIL Respiratory - EtCO2 while on naloxone infusion SpO2 goal > 92% IS/Flutter Albuterol PRN is listed as home Rx with no documented history of pulmonary disease. Non-bronchospastic on examination GI - Diet: NPO except meds with sips and chips pending clinical improvement SUP: N/A Bowel regimen: Start tomorrow RENAL/LYTES - Replete electrolytes as indicated Bladder scan and straight cath PRN Maintain net even to net negative Given IVF in ED, hold for now. Expect patient to be able to take PO by morning ENDO - Last A1c 8.7 (10/2024) Hold Metformin while IP BG 140-180 per [facility] guidelines ISS if needed while inpatient HEME/ONC/OTHER - Continue hydroxychloroquine Enbrel due next Monday ID - No acute concerns. Ulcer of foot does not appear actively infected, WBC WNL Monitor off antibiotics LINES/TUBES/DRAINS - PIV x2 DVT PROPHYLAXIS - Enoxaparin tomorrow CODE STATUS - FULL DISPOSITION - ICU whilst receiving continuous naloxone I have personally spent 36 minutes of critical care time in the direct management of this patient. This is a life/limb threatening event. This includes time spent evaluating patient, direct bedside care, chart review, placing orders, interpretation of diagnostic studies, discussion with consultants, patient, and family members, as well as other required patient management activities. This time is exclusive of all separately billable procedures, and teaching time and separate from and in addition to any other critical care service time. Thank you for allowing us to participate in the care of this patient. Please refer to my attending physician's documentation for any further recommendations. History of Present Illness Reason for Consultation: Substance overdose Requesting Physician: Dacia Attending Physician: David Pederson MD History of Present Illness Mr. Kwaku Ashley is a pleasant 70YOM with a history of CVA, CAD, HTN/HLD, carotid stenosis, RA, ulcerative colitis, HFpEF, IDDMII (8.7), OM of toes with amputation who [facility] from [facility] due to unresponsiveness. Per report, patient received intranasal naloxone with transient improvement. He received 4mg IV naloxone en route to ED. He was started on a naloxone infusion with sustained improvement. Hemodynamically stable in ED. Awake and alert. CTH without acute intracranial abnormalities. Labs reveal mild APRIL on CKD. He is admitted to ICU for continuation of care. Patient seen on arrival to ICU 109. AAOx3. GCS 15. RR > 11. SpO2 99% on RA. EtCO2 30-40. He is able to converse. Denies current complaints. ROS negative. Unable to recall events of today prior to hospitalization. Naloxone infusion running at 4mg/hr. This was decreased to 2mg/hr. Multiple reports that the patient ingested Suboxone not Subutex given illicit use increase at the correctional facility. We can assume patient does not chronically use opioid medications given his significant response with low propensity for Suboxone to cause respiratory suppression. Dose is also unknown. Allergies Allergy/AdvReac Type Severity Reaction Status Date / Time No Known Allergies Allergy Verified 05/18/25 15:38 Home Medications Medication Instructions Recorded Confirmed Type docusate sodium 100 mg tablet 100 mg PO BID PRN Constipation 10/18/20 05/18/25 History etanercept 50 mg/mL (1 mL) 1 mg subcut WK 10/18/20 05/18/25 History subcutaneous syringe (Enbrel) folic acid 1 mg tablet 1 mg PO DAILY 10/18/20 05/18/25 History hydroxychloroquine 200 mg tablet 200 mg PO DAILY 10/18/20 05/18/25 History nortriptyline 25 mg capsule 25 mg PO BID 10/18/20 05/18/25 History amlodipine 10 mg tablet 10 mg PO DAILY 10/05/22 05/18/25 History atorvastatin 10 mg tablet 10 mg PO DAILY 10/05/22 05/18/25 History albuterol sulfate 90 mcg/actuation 2 puff inhalation QID PRN 03/12/23 05/18/25 History aerosol inhaler Shortness Of Breath metformin 500 mg tablet 500 mg PO BID 09/09/24 05/18/25 History valsartan 80 mg tablet 80 mg PO DAILY 09/09/24 05/18/25 History furosemide 20 mg tablet 60 mg PO DAILY 11/04/24 05/18/25 History aspirin 81 mg tablet,delayed 81 mg PO DAILY 05/18/25 05/18/25 History release benzoyl peroxide 10 % topical 1 applic topical DAILY 05/18/25 05/18/25 History cleanser bismuth subsalicylate 262 mg/15 mL 262 mg PO BID PRN Loose Stool 05/18/25 05/18/25 History oral suspension (Pepto-Bismol) cholecalciferol (vitamin D3) 25 25 mcg PO DAILY 05/18/25 05/18/25 History mcg (1,000 unit) capsule (Vitamin D3) clindamycin phosphate 1 % lotion 1 applic topical BID 05/18/25 05/18/25 History (Cleocin T) ergocalciferol (vitamin D2) 1,250 1,250 mcg PO WK 05/18/25 05/18/25 History mcg (50,000 unit) capsule glucose 3.75 gram chewable tablet 3.75 g PO . NEEDED PRN 05/18/25 05/18/25 History Hypoglycemia insulin NPH isoph U-100 human 100 10 unit subcut QAM 05/18/25 05/18/25 History unit/mL subcutaneous suspension (Novolin N NPH U-100 Insulin isophane) insulin glargine-yfgn 100 unit/mL 10 unit subcut BID 05/18/25 05/18/25 History subcutaneous solution insulin regular human 100 unit/mL 10 unit subcut BIDM 05/18/25 05/18/25 History injection solution (Novolin R Regular U-100 Insulin) mineral oil-hydrophil petrolat 1 applic topical BID PRN Dry Skin 05/18/25 05/18/25 History topical ointment prednisone 10 mg tablet 0 mg PO UD 05/18/25 05/18/25 History Patient History Medical History APRIL (acute kidney injury) Diabetic foot ulcer CKD (chronic kidney disease) APRIL (acute kidney injury) Elevated troponin HHNC (hyperglycemic hyperosmolar nonketotic coma) Orthostatic hypotension (2016) Anemia Surgical History S/P craniotomy Family History Other Family history non-contributory Social History Smoking Status: Former smoker Tobacco Type: Cigarettes Age Started Using Tobacco: 13; packs per day: 0.5; Second Hand Exposure: No; Do You Dip or Chew Tobacco: No; Hx Alcohol Use: No Hx Substance Use: Yes Prescribed Medications: Marijuana Last Used Substance: Hours (ago) Last Used Substance Other:: >5 years ago Substance Use Type Other:: Suboxone Preferred Language: Turkmen Communication Ability: Effective Business Line Manager Required: No Beliefs That Will Affect Care: None marital status: Current Living Situation: Other Current Living Situation Comment: [facility] current occupational status: unemployed Feels Safe at Home: Yes Safety Concerns: Feels Safe At This Time Assistive Devices: Glasses Review of Systems Review of Systems: All systems reviewed & are unremarkable except as noted in Subjective Physical Exam Constitutional: well developed, well nourished and cooperative; no acute distress Eyes: PERRL, conjunctivae normal, anicteric sclerae ENMT: external ear and nose normal, oropharynx normal Neck: trachea midline, no thyromegaly Respiratory: normal respiratory effort, lungs clear to auscultation Cardiovascular: RRR, no murmur, no edema Gastrointestinal (Abdomen): normal bowel sounds, soft, nontender, no hepatosplenomegaly Musculoskeletal: no cyanosis or clubbing, extremities motor strength 5/5 Amputation of toes noted L foot. Skin: no rashes, warm and dry Granulation tissue without active infection of ulcer. Neurologic: normal touch/pain/proprioception, moves all extremities and awake; no focal motor deficits Psychiatric: A+Ox3, euthymic affect Genitourinary: Deferred Results & Data Results & Data Vital Signs (Past 12 Hours) Vital Signs Temp Pulse Pulse Resp BP BP Pulse Ox 05/18/25 19:37 36.4 C L 68 14 158/82 H 99 05/18/25 19:00 70 12 167/87 H 100 05/18/25 18:45 68 10 L 149/98 H 100 05/18/25 18:30 75 180/142 H 100 05/18/25 18:15 10 L 156/102 H 100 05/18/25 18:15 36.5 C 05/18/25 18:00 71 10 L 163/98 H 100 05/18/25 17:45 72 11 L 175/94 H 100 05/18/25 17:30 66 12 162/97 H 100 05/18/25 17:30 67 11 L 162/97 H 100 05/18/25 17:15 70 10 L 173/98 H 100 05/18/25 17:00 70 14 157/89 H 100 05/18/25 16:45 64 10 L 176/88 H 100 05/18/25 16:30 66 10 L 166/91 H 99 05/18/25 16:15 65 12 185/98 H 100 05/18/25 16:15 66 12 185/98 H 05/18/25 16:00 65 10 L 189/101 H 98 05/18/25 15:50 64 10 L 183/96 H 99 05/18/25 15:50 64 12 98 05/18/25 15:45 64 10 L 163/108 H 99 05/18/25 15:42 64 14 163/83 H 100 05/18/25 15:36 65 16 184/104 H 97 05/18/25 15:31 66 12 146/104 H 100 05/18/25 15:25 65 14 179/103 H 100 05/18/25 15:16 58 L 05/18/25 15:15 184/100 H 05/18/25 15:08 62 6 L 180/102 H 100 05/18/25 15:05 180/102 H 05/18/25 15:01 163/82 H 05/18/25 14:55 176/106 H 05/18/25 14:50 183/96 H 05/18/25 14:45 169/80 H 05/18/25 14:40 155/102 H 05/18/25 14:34 99 05/18/25 14:07 61 12 118/76 100 05/18/25 14:07 61 12 118/76 98 O2 Del Method O2 Flow Rate 05/18/25 19:37 Room Air 05/18/25 19:00 Nasal Cannula 2 05/18/25 18:45 Nasal Cannula 2 05/18/25 18:30 Nasal Cannula 2 05/18/25 18:15 Nasal Cannula 2 05/18/25 18:15 05/18/25 18:00 Nasal Cannula 2 05/18/25 17:45 Nasal Cannula 2 05/18/25 17:30 Nasal Cannula 2 05/18/25 17:30 Nasal Cannula 2 05/18/25 17:15 Nasal Cannula 2 05/18/25 17:00 Nasal Cannula 2 05/18/25 16:45 Nasal Cannula 2 05/18/25 16:30 Nasal Cannula 2 05/18/25 16:15 Nasal Cannula 2 05/18/25 16:15 05/18/25 16:00 Nasal Cannula 2 05/18/25 15:50 Nasal Cannula 2 05/18/25 15:50 Nasal Cannula 2 05/18/25 15:45 Nasal Cannula 2 05/18/25 15:42 Nasal Cannula 2 05/18/25 15:36 Nasal Cannula 2 05/18/25 15:31 Nasal Cannula 2 05/18/25 15:25 Nasal Cannula 2 05/18/25 15:16 05/18/25 15:15 05/18/25 15:08 Nasal Cannula 2 05/18/25 15:05 05/18/25 15:01 05/18/25 14:55 05/18/25 14:50 05/18/25 14:45 05/18/25 14:40 05/18/25 14:34 Nasal Cannula 2 05/18/25 14:07 Nasal Cannula 2 05/18/25 14:07 Room Air Laboratory Results Reviewed Diagnostic Findings Reviewed Medications Administered See MAR Coding Level of Care Code 90689 IN/OBS CONSULT LVL 2,35M Diagnoses Type 2 diabetes mellitus E11.9 Hypoventilation R06.89 Unresponsive episode R40.4 Opioid overdose T40.2X1A Time Spent (min) 36
[2025-05-18] MEDS: DEXTROSE 50% 50 ML SYRINGE IV PRN (20:02)
[2025-05-18] MEDS: INSULIN ASPART PER UNIT CHARGE SC SCH (20:43)
[2025-05-18] MEDS: HEPARIN SOD 5,000 UNIT/0.5 ML VIAL SQ SCH (20:53)
[2025-05-18] MEDS: LABETALOL HCL IV 5 MG/ML 20ML IV STA (21:35)
[2025-05-19 04:36] LABS: Hematocrit (blood only) 34.2 % (42.0-52.0); Hemoglobin 11.0 g/dl (14.0-18.0); Immature Granulocytes # (auto) 0.02 K/uL (0.01-0.20); Immature Granulocytes % (auto) 0.2 %; Mean Corpuscular Hemoglobin 27.8 pg (25.0-34.0); Mean Corpuscular Volume 86.6 fL (80.0-100.0); Platelet Count 225 K/uL (130-400); RDW Standard Deviation 43.9 fL (36.4-46.3); Red Blood Count 3.95 M/uL (4.70-6.10); White Blood Count 8.12 K/ul (4.8-10.8)
[2025-05-19 04:51] LABS: Alanine Aminotransferase 27.0 U/L (7-52); Albumin Globulin Ratio 0.8 (0.9-2); Alkaline Phosphatase 67.0 U/L (34-104); Anion Gap 2.0 (3-11); Bilirubin,Total 0.3 mg/dl (0.2-1.0); Blood Urea Nitrogen 29.0 mg/dl (6-23); Calcium 8.5 mg/dl (8.6-10.3); Carbon Dioxide 30.0 mmol/L (21-32); Chloride 102.0 mmol/L (98-107); Creatinine Clr Calc Pharmacy 56.9 ml/min; Globulin 3.8 gm/dl (2.5-4.0); Glucose 135.0 mg/dl (70-99(Fasting)); Magnesium 1.8 mg/dl (1.7-2.4); Potassium 4.3 mmol/L (3.5-5.1); Sodium 134.0 mmol/L (136-145); Total Protein 6.8 gm/dl (6.0-8.3)
[2025-05-19 05:37] VITALS: O2SAT 97
[2025-05-19 06:37] VITALS: RESP 14
[2025-05-19] MEDS: VALSARTAN 80 MG TAB PO SCH (07:45)
[2025-05-19] MEDS: CHOLECALCIFEROL 25 MCG (1000 UNITS) TAB PO SCH (07:45)
[2025-05-19] MEDS: HYDROXYCHLOROQUINE SULFATE 200 MG TAB PO SCH (07:45)
[2025-05-19] MEDS: ATORVASTATIN 10 MG TAB PO SCH (07:45)
[2025-05-19] MEDS: FOLIC ACID 1 MG TAB PO SCH (07:46)
[2025-05-19] MEDS: ASPIRIN 81 MG ECTAB PO SCH (07:46)
--- NOTE | 2025-05-19 08:17 | Critical Care Progress Note ---
Date of Service May 19, 2025 Assessment & Plan (1) Type 2 diabetes mellitus: (2) Hypoventilation: (3) Unresponsive episode: (4) Opioid overdose: Plan Reason Critically Ill: 1. Unintentional opioid overdose with respiratory depression 2. APRIL on CKD Neuro - [facility] ICU: Negative -- Encephalopathy Likely secondary to snorting Suboxone Back to his baseline, saturating well and mentating well Cardiac - --Hypertension Resume norvasc -- Dyslipidemia Continue ASA, statin Respiratory - -- Smokes e-cigarettes GI - -- No acute issues RENAL/LYTES - -- CKD Monitor BUNs/creatinine Avoid nephrotoxic medication ENDO - Last A1c 8.7 (10/2024) -- Diabetes type 2 ICU hyperglycemia protocol HEME/ONC/OTHER - -- Monitor H&H ID - No acute concerns. Ulcer of foot does not appear actively infected, WBC WNL Monitor off antibiotics Rheum - -- Rheumatoid arthritis On hydroxychloroquine daily and Enbrel weekly q. 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 Denies any suicidal ideation. Disposition as per primary team Please note the above document was generated using voice recognition software. It may contain grammatical, syntax or spelling errors.Any formal questions or concerns about the content, text or information contained within the body of this dictation should be directly addressed to the provider for clarification. Admission and Anticipated Discharge Date Admission Date: May 18, 2025 Subjective Patient seen and examined at bedside. No acute distress, no adverse events overnight He was saturating well on room air Denies any chest pain, no shortness of breath, no headache, no nausea, no vomiting Finished his breakfast without any issues, no difficulty swallowing Review of Systems 2 Review of Systems: All systems reviewed & are unremarkable except as noted in Subjective Physical Exam 2 Physical Exam: Constitutional: No acute distress HEENT: EOMI, PERRLA Respiratory system: Good air entry bilaterally, no wheeze, no rhonchi, no crackles CVS: S1-S2 positive, no murmurs or gallops Abdomen: Soft, nontender, nondistended, positive bowel sounds x4 Extremities: +2 pulses bilaterally radialis/ dorsalis pedis, no cyanosis, +1 pitting edema bilateral lower extremity Neuro: Awake alert oriented to self and time Psych: Normal mood and affect G/U: No Gleason Skin: no rashes, warm and dry Lymphatic: no cervical or axillary lymphadenopathy Results & Data Results & Data Vital Signs (Past 12 Hours) Vital Signs Pulse Resp BP Pulse Ox 05/19/25 06:30 72 14 97 05/19/25 06:27 72 18 97 05/19/25 06:15 73 15 96 05/19/25 06:00 72 18 96 05/19/25 06:00 163/79 H 05/19/25 05:57 73 16 96 05/19/25 05:42 74 22 96 05/19/25 05:12 72 28 H 97 05/19/25 05:06 72 24 97 05/19/25 05:01 178/83 H 05/19/25 04:31 150/79 H 05/19/25 04:31 150/79 H 05/19/25 04:15 69 22 97 05/19/25 04:00 189/99 H 05/19/25 04:00 65 16 98 05/19/25 03:00 178/98 H 05/19/25 03:00 178/98 H 05/19/25 03:00 178/98 H 05/19/25 03:00 66 18 99 05/19/25 02:54 66 21 98 05/19/25 02:42 63 17 98 05/19/25 02:33 61 14 98 05/19/25 02:12 63 19 98 05/19/25 02:02 166/101 H 05/19/25 02:02 166/101 H 05/19/25 02:00 64 15 98 05/19/25 01:39 62 12 100 05/19/25 01:00 62 14 98 05/19/25 00:45 58 L 16 99 05/19/25 00:30 55 L 14 98 05/19/25 00:24 55 L 14 98 05/19/25 00:15 56 L 16 98 05/19/25 00:03 54 L 12 99 05/19/25 00:00 155/105 H 05/19/25 00:00 155/105 H 05/18/25 23:30 55 L 12 99 05/18/25 23:00 148/80 H 05/18/25 23:00 148/80 H 05/18/25 23:00 56 L 14 100 05/18/25 22:57 56 L 14 100 05/18/25 22:01 161/93 H 05/18/25 22:01 55 L 161/93 H 05/18/25 22:00 55 L 18 100 05/18/25 21:51 54 L 12 98 05/18/25 21:42 54 L 14 99 05/18/25 21:35 68 196/85 H 05/18/25 21:30 70 20 100 05/18/25 21:28 196/85 H 05/18/25 21:15 69 18 100 05/18/25 21:00 187/98 H 05/18/25 21:00 187/98 H 05/18/25 21:00 67 11 L 100 05/18/25 20:51 67 9 L 99 05/18/25 20:48 68 10 L 99 05/18/25 20:30 68 9 L 99 05/18/25 20:18 68 10 L 98 Laboratory Results 05/19/25 04:07 05/19/25 04:07 Coding Level of Care Code 91899 SUB INP/OBS CARE 2/35MIN Diagnoses Type 2 diabetes mellitus E11.9 Hypoventilation R06.89 Unresponsive episode R40.4 Opioid overdose T40.2X1A
[2025-05-19] MEDS: INSULIN HUMAN NPH SQ SCH (08:50)
--- NOTE | 2025-05-19 10:28 | Discharge Summary ---
Date of Service May 19, 2025 Admission HPI Per Admitting Provider 70-year-old black male who apparently took Suboxone from another prisoner and subsequently became unresponsive with respiratory depression. He was given intranasal Narcan at the [facility] and EMS was summoned. He again received Narcan by the intravenous route per EMS and transiently regained consciousness in the ED then was started on Narcan continuous infusion drip at 4 mg/h. At the time of my examination the patient is awake and able to converse. He appears to be oriented. Blood pressure is mildly elevated and vital signs are currently stable. EKG reveals normal sinus rhythm with no acute changes. Head CT scan reveals chronic changes with old lacunar infarct. Since he is on a Narcan infusion, he will be placed in the intensive care unit. Admission Exam (Per Admitting) Constitutional well developed, well nourished and cooperative; no acute distress Eyes PERRL, conjunctivae normal, anicteric sclerae Cardiovascular RRR, no murmur, no edema Gastrointestinal (Abdomen) normal bowel sounds, soft, nontender, no hepatosplenomegaly Musculoskeletal no cyanosis or clubbing, extremities motor strength 5/5 Neurologic normal touch/pain/proprioception, moves all extremities and awake; no focal motor deficits Discharge Data Consultations 05/18/25 17:19 ED Decision to Admit Stat Hospital Course (1) Unresponsive episode: He is now awake ,alert, oriented x4 (2) Hypoventilation: Resolved Now saturating 95% 0n room air (3) HTN (hypertension): Treated with amlodipine and valsartan. Blood pressure is currently mildly elevated. Will follow (4) Rheumatoid arthritis: He takes hydroxychloroquine daily and Enbrel subcutaneously weekly (5) Type 2 diabetes mellitus: Sliding scale coverage for now. Metformin is on hold. Both Lantus and NPH are listed on his medications. Uncertain what he actually takes at the present. This will need clarification Plan discharge back to custodial Coding Level of Care Code 58585 INP/OBS DISCH >30 MIN Diagnoses Unresponsive episode R40.4 Hypoventilation R06.89 HTN (hypertension) I10 Hypertension type: unspecified Rheumatoid arthritis M06.9 Type 2 diabetes mellitus E11.9 Time Spent (min) 35
[2025-05-19 11:35] VITALS: BP 146/89; PULSE 71
--- NOTE | 2025-05-22 05:40 | Electrocardiogram Report ---
Test Reason : Blood Pressure : */* mmHG Vent. Rate : 60 BPM Atrial Rate : 60 BPM P-R Int : 184 ms QRS Dur : 88 ms QT Int : 444 ms P-R-T Axes : 46 44 86 degrees QTcB Int : 444 ms Normal sinus rhythm Nonspecific T wave abnormality When compared with ECG of 09-Sep-2024 13:43, No significant change was found Confirmed by Leonardo Cody ([id number] on 05/22/2025 5:40:12 AM Referred By: Confirmed By: Leonardo Cody
== END 2025-05-19 14:10 | DRG 917 ==
LOC: SUATTDRO → ED 14:01 → 1E 17:50 → SUATTDRO 17:50 → 1E 19:47